=== PATIENT | male | born 1940 | race Caucasian/White ===

== ENCOUNTER 2024-02-14 15:14 | Emergency (ER) | payer MEDICARE, OTHER, SELFPAY ==
[2024-02-14 15:20] VITALS: BP 187/70
[2024-02-14 15:49] LABS: % Basophils 0.3 % (0-2); % Immature Granulocytes 0.5 % (0-0.5); % Monocytes 8.6 % (1.7-9.3); % Neutrophils 82.6 % (42.2-75.2); Absolute Immature Granulocytes 0.1 10^3/uL (0-0.05); Absolute Lymphocytes 0.9 10^3/uL (1.2-3.4); Absolute Neutrophils 9.2 10^3/uL (1.4-6.5); Hematocrit 28.1 % (39.0-52.0); Hemoglobin 9.4 g/dL (13.0-18.0); Mean Corp Hgb Conc. 33.5 g/dL (33.0-37.0); Mean Corpuscular Volume 86.7 fL (80.0-94.0); Mean Platelet Volume 9.7 fL (7.4-10.4); Nucleated Red Blood Cells % 0 % (-); Platelet Count 191 10^3/uL (130-400); Red Blood Cell Count 3.24 10^6/uL (4.70-6.10); Red Cell Dist. Width 13.7 % (11.5-14.5); White Blood Cell Count 11.1 10^3/uL (4.8-10.8)
[2024-02-14 16:13] LABS: ALT (SGPT) 25 U/L (0-50); AST (SGOT) 25 U/L (17-59); Albumin 4.4 g/dl (3.5-5.0); Alkaline Phosphatase 98 U/L (38-126); Blood Urea Nitrogen 44 mg/dl (9-20); Calcium 9.3 mg/dl (8.4-10.2); Carbon Dioxide 21 mmol/L (22-30); Chloride 105 mmol/L (98-107); Glucose 326 mg/dl (70-99); Potassium 4.9 mmol/L (3.5-5.1); Sodium 139 mmol/L (135-145); Total Bilirubin 0.5 mg/dl (0.2-1.3); Total Protein 6.8 g/dl (6.3-8.2); eGFR 25.02
[2024-02-14 16:18] LABS: Urine Albumin 1+ (Neg - Trace); Urine Bilirubin Negative (Negative); Urine Character Very Cloudy (Clear); Urine Color Yellow; Urine Glucose 3+ (Negative); Urine Ketone Negative (Negative); Urine Leukocyte 2+ (Negative); Urine Nitrite Negative (Negative); Urine Occult Blood 1+ (Negative); Urine Urobilinogen Negative (Neg - 1+)
[2024-02-14 16:42] LABS: Urine White Cell 30-40 /HPF (0-5)
[2024-02-14 16:44] LABS: Urine Squamous Cell 0-2 /LPF (Few)
--- NOTE | 2024-02-14 16:46 | ED.GENMED ---
History of Present Illness
General
Chief Complaint: Urinary Symptoms
Source: patient and spouse
Time Seen by Provider: 02/14/24 16:06
History of Present Illness
History of Present Illness:
83-year-old male with past medical history of hypertension, insulin-dependent diabetes and chronic kidney disease presenting to the emergency department from urgent care for evaluation of possible 'kidney infection' after patient started with
urinary frequency/urgency and dysuria yesterday. Symptoms actually seem to be a little bit improved today after patient 3 separate doses of penicillin which she was prescribed for a dental infection/dental work earlier in the week. Patient does
still note that he has the mild dysuria and urgency. He is otherwise denying fevers, back or flank pain, nausea or vomiting and states today he feels much better than he did yesterday. He follows with nephrology at this facility and believes his
usual renal function is around 2.5. Patient has no other concerns at this time.
Past History
Past History
ED Past Medical History: CAD, HTN, IDDM and Renal failure
ED Past Surgical History: Cardiac
Social History
Tobacco: Non-smoker
Alcohol: None
Drug: None
Personal:
Living: with family
Review of Systems
Review of Systems
All Other Systems: ROS reviewed and negative except as documented in HPI and ROS
Phy Exam
Physical Exam
Physical Exam:
GENERAL: Alert , in no apparent distress
EYE: clear conjunctiva b/l
HEAD: NCAT
ENT: mmm.
CARDIAC: Regular rate and rhythm, systolic murmur right second intercostal space.
LUNGS: Clear breath sounds bilaterally, no acute respiratory distress, no wheezes/rales/rhonchi
ABDOMEN: Soft, without focal tenderness, no r/g, no cvat
NEUROLOGICAL: Alert and oriented
SKIN: Warm and dry, skin intact.
MUSCULOSKELETAL: well perfused.
PSYCH: Normal and appropriate interaction.
Scores
Heart Failure Risk
Heart Failure Risk Score: Not Applicable
Heart Score for Chest Pain Patients
STEMI patient?: Not applicable
Withdrawal Assessment of Alcohol
Withdrawal Assessment Completed?: Not applicable
Course
Orders/Labs/Results
Orders:
Orders
02/14/24 15:34
CMP [Comprehensive Metabolic Panel] Urgent
Complete Blood Count/With Diff Urgent
02/14/24 15:35
Urinalysis Reflex To Culture Urgent
Date Specimen was Collected: 02/14/24
Time Specimen was Collected: 15:27
Urine Microscopic Reflex Cult Urgent
Urine Culture Urgent
TYSON Source: U
Specimen Description:
Date Specimen was Collected: 02/14/24
Time Specimen was Collected: 15:27
Abnormal Lab Results
02/14/24 02/14/24
15:34 15:35
WBC 11.1 H 10^3/uL
(4.8-10.8)
RBC 3.24 L 10^6/uL
(4.70-6.10)
Hgb 9.4 L g/dL
(13.0-18.0)
Hct 28.1 L %
(39.0-52.0)
Abs Immat Gran (auto) 0.1 H 10^3/uL
(0-0.05)
Absolute Neuts (auto) 9.2 H 10^3/uL
(1.4-6.5)
Absolute Lymphs (auto) 0.9 L 10^3/uL
(1.2-3.4)
Absolute Monos (auto) 1.0 H 10^3/uL
(0.1-0.6)
Neutrophils % 82.6 H %
(42.2-75.2)
Lymphocytes % 8.0 L %
(20.5-51.1)
Carbon Dioxide 21 L mmol/L
(22-30)
BUN 44 H mg/dl
(9-20)
Creatinine 2.5 H mg/dL
(0.7-1.3)
Glucose 326 H mg/dl
(70-99)
Ur Occult Blood Reflex 1+ A
(Negative)
Leukocyte Esterase Rfl 2+ A
(Negative)
Urine RBC 7-10 A /HPF
(0-2)
Urine WBC (Reflex) 30-40 A /HPF
(0-5)
Urine Glucose 3+ A
(Negative)
Urine Albumin (Reflex) 1+ A
(Neg - Trace)
02/14/24 15:34
02/14/24 15:34
Vital Signs
Initial and Last Documented VS:
Initial Vital Signs
Temp Pulse Resp BP Pulse Ox
99.0 F 77 18 187/70 98
02/14/24 15:20 02/14/24 15:20 02/14/24 15:20 02/14/24 15:20 02/14/24 15:20
Last Documented Vital Signs
Temp Pulse Resp BP Pulse Ox
99.0 F 77 18 187/70 98
02/14/24 15:20 02/14/24 15:20 02/14/24 15:20 02/14/24 15:20 02/14/24 15:20
Chaser Helper consulted with Physician
Chaser Helper consulted with physician?: Yes
Name of Physician Consulted: Bean
MDM/Problems Addressed
Differential Diagnosis Includes:
Cystitis, less concern for pyelonephritis, symptoms do not seem to be related to patient's diabetes nor chronic kidney disease however certainly possible given his chronic medical history
MDM/Problems Addressed:
83-year-old male presenting emergency department for evaluation of dysuria and urgency that started yesterday. Urgent care concern for pyelonephritis however patient without any fevers, back or flank pain, nausea or vomiting that would have me
suspicious for pyelonephritis. His labs from urgent care were reviewed which showed a leukocytosis of 11.1, creatinine of 2.7, elevated glucose and questionable urinary tract infection. Patient had repeat labs and urine drawn here which confirmed
the very mild leukocytosis. Creatinine 2.5, glucose 326. Urinalysis with 2+ leukocytes and 30-40 WBCs. Given his symptoms combined with UA findings I do feel it is likely patient has a urinary tract infection. Advise he discontinue the use of
the penicillin and will instead start patient on Bactrim. I also notified patient of his kidney function and current glucose levels. Advised patient follow-up closely with primary care provider. Aware of return precautions. Feels comfortable
being discharged home.
Chronic conditions affecting care: Kidney disease
*Pulse Oximetry
Patient hypoxic: no
*Critical Care Note
Total Time (30-74mins, 75-104mins- exclusive of procedures): Not Applicable
Data Reviewed
Review of Other/Old Records Reveals: Labs
Source: patient and spouse
ED Attending Note
-
Portions of this chart may have been created with voice recognition software.� Occasional wrong word or��sound alike� substitutions may have occurred due to the inherent limitations of voice recognition software.
Discharge Plan
Departure
Patient Disposition: Home (Routine Discharge)
Date of Disposition: 02/14/24
Time of Disposition: 16:46
Patient with high blood pressure during this ER visit?: Yes
Discharge Problem:
Acute UTI, CKD (chronic kidney disease), Hyperglycemia
Instructions: Urinary Tract Infection, Adult (DC)
Prescriptions:
New
sulfamethoxazole-trimethoprim [Bactrim DS] 800-160 mg tablet
1 tab PO BID 7 Days Qty: 14 0RF
Discharge Date and Time
Print Language: YI
[2024-02-14 17:00] VITALS: BP 165/74
== END 2024-02-14 18:08 | disposition home or self-care (01) ==
LOC: EMR 15:14
PROVIDERS: Student in an Organized Health Care Education/Training Program; EMERGENCY PHYSICIAN Student in an Organized Health Care Education/Training Program; REFERRING PHYSICIAN Internal Medicine Cardiovascular Disease
DX: N39.0 Urinary tract infection, site not specified (principal); I12.9 Hypertensive chronic kidney disease with stage 1 through stage 4 chronic kidney disease, or unspecified chronic kidney disease; E11.22 Type 2 diabetes mellitus with diabetic chronic kidney disease; N18.9 Chronic kidney disease, unspecified; E11.65 Type 2 diabetes mellitus with hyperglycemia; I25.10 Atherosclerotic heart disease of native coronary artery without angina pectoris; Z79.4 Long term (current) use of insulin; Z88.8 Allergy status to other drugs, medicaments and biological substances
CPT/HCPCS: 99283; 80053; 81003; 81015; 85025; 87077; 87086; 87186

== ENCOUNTER 2024-03-16 12:50 | Outpatient (RCR) | payer MEDICARE, OTHER, SELFPAY ==
[2024-03-08 13:24] VITALS: BP 159/60
[2024-03-08] MEDS: FERAHEME 117 MG IV (13:30)
[2024-03-08] MEDS: NSS 250 IV (13:30)
[2024-03-08 13:56] VITALS: BP 174/62
[2024-03-08 14:19] VITALS: BP 168/59
[2024-03-16 13:05] VITALS: BP 108/62
[2024-03-16] MEDS: NSS 250 IV (13:07)
[2024-03-16] MEDS: FERAHEME 117 MG IV (13:10)
[2024-03-16 14:10] VITALS: BP 169/61
== END 2024-04-06 23:59 | disposition home or self-care (01) ==
LOC: OID 12:50
PROVIDERS: ATTENDING PHYSICIAN Internal Medicine
DX: N18.31 Chronic kidney disease, stage 3a (principal); D50.9 Iron deficiency anemia, unspecified; N25.81 Secondary hyperparathyroidism of renal origin; E11.29 Type 2 diabetes mellitus with other diabetic kidney complication
CPT/HCPCS: 96361; 96365; Q0138

== ENCOUNTER 2024-03-21 15:03 | Inpatient (IN) | payer MEDICARE, OTHER, SELFPAY ==
[2024-03-21] VITALS (11 sets, daily range): BP systolic 99–184; BP diastolic 55–71; BMI 24.2
--- NOTE | 2024-03-21 10:22 | ED.GENMED ---
ED Provider Triage
<Julianne Castro PA-C - Last Filed: 03/21/24 16:11>
-
Patient seen by provider in Triage?: Seen in Triage
Attestation: A medical screening examination has been initiated by a qualified medical provider. Based on the assessment performed at this time, it has been determined that an emergent medical condition may exist and the patient has been informed
that further medical evaluation and possible additional diagnostic testing may be needed.
HPI: 83yoM here with a Valverde catheter issue. Recently treated for a UTI with 2 rounds of abx. Seen by Dr. Farah 4 days ago and had a Valverde catheter placed. Here due to discomfort of his Valverde catheter and intermittent draining issues. has
been irrigating the catheter.
GENERAL: Alert , in no apparent distress
EYE: No visual abnormalities.
NECK: Trachea midline
ENT: No visible abnormalities.
LUNGS: No acute respiratory distress
NEUROLOGICAL: Alert and oriented
SKIN: Skin intact. No visible changes.
MUSCULOSKELETAL: Moving extremities normally
PSYCH: Normal and appropriate interaction.
This is a medical evaluation conducted in person to initiate diagnostic evaluation and provide initial therapeutics. Please see further documentation by the treating clinician.
History of Present Illness
<Julianne Castro PA-C - Last Filed: 03/21/24 16:11>
General
Chief Complaint: Male Genito-Urinary Symptoms
Time Seen by Provider: 03/21/24 11:21
<Tanya Parrish PA-C - Last Filed: 03/21/24 17:42>
General
Source: patient and spouse
Exam Limitations: none
Nursing documentation reviewed up to this point in time: agreed with
History of Present Illness
History of Present Illness:
pt i a 83 y/o M with h/o ckd, iddm, HTN
here with problems iwth valverde catheter
pt has had 2 utis since february; treated first wiht bactrim and then with keflex most recently
he went to see his urologist after the keflex completed he saw dr. farah and he was in retention and had a valverde placed
he had a little gross hematuria but no tmuch
wasdraining an dhis who was an Rn was irrigating the catheter with outp sislem
but then overnight he stopped having normal drainage and was having pain and then this moring she was unable to irrigate, nothing would come out
he is having some distnetion and pain now
no fever/chills
pierce had ongoign anemia as well
Past History
<Julianne Castro PA-C - Last Filed: 03/21/24 16:11>
Past History
ED Past Medical History: CAD, HTN, IDDM and Renal failure
ED Past Surgical History: Cardiac
Social History
Tobacco: Non-smoker
Alcohol: None
Drug: None
Personal:
Living: with family
Review of Systems
<Tanya Parrish PA-C - Last Filed: 03/21/24 17:42>
Review of Systems
Allergies reviewed?: Yes
All Other Systems: Not applicable
Phy Exam
<Tanya Parrish PA-C - Last Filed: 03/21/24 17:42>
Physical Exam
Physical Exam:
GENERAL: Alert , in no apparent distress
EYE: pupils equal and reactive , pale
NECK: Supple
ENT: o/p clr, mmm.
CARDIAC: Regular rate and rhythm .
LUNGS: Clear breath sounds bilaterally, no acute respiratory distress, no wheezes/rales/rhonchi
ABDOMEN: distended slightly tense, urinary bladder full, nontender;
penis: no blood at meatus; minmal urine int he valverde bag; yellow
NEUROLOGICAL: Alert and oriented, no focal neuro deficits
SKIN: Warm and dry, skin intact.
MUSCULOSKELETAL: No edema, well perfused. neg diana's sign
PSYCH: Normal and appropriate interaction.
Course
<Julianne Castro PA-C - Last Filed: 03/21/24 16:11>
Orders/Labs/Results
Orders:
Orders
03/21/24 Breakfast
Cholesterol Lowering
At Your Request: Limited Participation
Cholesterol Lowering: Sodium, 2 Gram
1800 yang/15 CHO Diabetic
03/21/24 12:17
Complete Blood Count/With Diff Urgent
Comprehensive Metabolic Panel Urgent
Urinalysis Reflex To Culture Urgent
Date Specimen was Collected: 03/21/24
Time Specimen was Collected: 12:16
Urine Microscopic Reflex Cult Urgent
Urine Culture Urgent
TYSON Source: U
Specimen Description:
Date Specimen was Collected: 03/21/24
Time Specimen was Collected: 12:16
03/21/24 13:01
Electrocardiogram (*1) Urgent
Reason for Study: Other
Other Reason for Exam: hyperkalemia
EKG- Treatment ONCE
03/21/24 13:03
Cardiac Monitoring- Treatment ONCE
Dextrose 50%-Water [Dextrose 50% Syringe] 12.5 grams IV [id number] PRN
Dextrose 50%-Water [Dextrose 50% Syringe] 25 grams IV NOW STA
Insulin Human Regular [Novolin R] 5 units IV NOW STA
03/21/24 13:04
Bedside Glucose PRE IV Insulin- HyperK+ NOW
03/21/24 13:36
Calcium Gluconate 1,000 mg IV NOW STA
03/21/24 14:28
Admit/Transfer Patient As Directed
Co-Sign Provider:
Level of Care: Inpatient admission
Assign to:: Telemetry
Physician / Group: htay
Diagnosis: Complicated male UTI/CAUTI, acut bladder retension, hyperkalemia
Reason for Telemetry: Other
Other Reason for Telemetry: Hyperkalemia
Date to Stop Telemetry: 03/23/24
Time to Stop Telemetry: 11:00
Reason for Hospitalization: Complicated male UTI/CAUTI, acut bladder retension, hyperkalemia
Expected length of stay greater than two midnights?: Yes
ELOS- Estimated Length of Stay in days: 3
I certify the patient meets the requirements for IP care: Yes
03/21/24 14:32
Code Status As Directed
Resuscitation Status: Full Code
03/21/24 14:34
Bedside Glucose POST IV Insulin- HyperK+ Q1HX2,Q2HX2
03/21/24 15:34
Potassium Urgent
Comment: draw 2 hours after regular insulin IV administration
03/21/24 16:16
Acetaminophen [Tylenol] 650 mg PO Q4HPRN PRN
Bisacodyl [Dulcolax] 10 mg RECTAL [id number] PRN
Dextrose 50%-Water [Dextrose 50% Syringe] 12.5 grams IV [id number] PRN
Docusate W/Senna [Senokot-S] 1 tablet PO BIDPRN PRN
Glucagon [GlucaGen] 1 mg IM PRN PRN
Polyethylene Glycol Powder [Miralax] 17 grams PO DAILYPRN PRN
03/21/24 16:16
UROLOGY CONSULT Routine
Consulting Provider: Unruly Farah
Was physician already notified: Yes
Comment: Complicated male UTI/CAUTI, acut bladder retension, hyperkalemia
Activity As Directed
Activity Level: With Assistance
Bedside Glucose Monitoring As Directed
Frequency: AC&HS
Additional Instructions:: Change to q6h if pt on TPN, tube feeding or not eating
Intake/ Output As Directed
Frequency: Per unit guidelines
Pneumatic Compression Sleeves As Directed
Type: Knee high
Vital Signs As Directed
Frequency: Per unit guidelines
Weight As Directed
Frequency: Daily
DX Deep Vein Thrombosis Video Routine
03/21/24 16:30
Insulin Aspart Corrective Low [Novolog Flexpen-Low Resistance] See Protocol SC AC
03/21/24 18:00
Ampicillin/Sulbactam 1.5 G [Unasyn] 1.5 gm 0.9% Sodium Chloride [Nss] 50 ml IV Q12H
Atorvastatin [Lipitor] 80 mg PO QPM
03/21/24 20:00
Carvedilol [Coreg] 12.5 mg PO BID
03/22/24 06:00
Basic Metabolic Panel IN AM
Complete Blood Count/No Diff IN AM
Glycohemoglobin (HgbA1c) IN AM
03/22/24 08:00
Amlodipine [Norvasc] 10 mg PO DAILY
Prasugrel Hydrochloride [Effient] 5 mg PO DAILY
insulin degludec [Tresiba U-100 Insulin] 8 unit SC DAILY
03/23/24 11:00
DC Protocol for Telemetry ONCE
Abnormal Lab Results
03/21/24 03/21/24
12:17 14:19
RBC 2.87 L 10^6/uL
(4.70-6.10)
Hgb 8.5 L g/dL
(13.0-18.0)
Hct 25.7 L %
(39.0-52.0)
RDW 14.6 H %
(11.5-14.5)
Absolute Neuts (auto) 8.3 H 10^3/uL
(1.4-6.5)
Absolute Lymphs (auto) 0.7 L 10^3/uL
(1.2-3.4)
Neutrophils % 86.6 H %
(42.2-75.2)
Lymphocytes % 6.8 L %
(20.5-51.1)
Sodium 133 L mmol/L
(135-145)
Potassium 6.9 H* mmol/L
(3.5-5.1)
Carbon Dioxide 21 L mmol/L
(22-30)
BUN 35 H mg/dl
(9-20)
Creatinine 2.6 H mg/dL
(0.7-1.3)
Glucose 272 H mg/dl
(70-99)
Alkaline Phosphatase 163 H U/L
(38-126)
Ur Occult Blood Reflex 3+ A
(Negative)
Leukocyte Esterase Rfl 2+ A
(Negative)
Urine WBC (Reflex) >100 A /HPF
(0-5)
Urine Glucose 2+ A
(Negative)
Urine Albumin (Reflex) 3+ A
(Neg - Trace)
POC Glucose 296 H mg/dl
(70-99)
03/21/24 12:17
03/21/24 12:17
Vital Signs
Initial and Last Documented VS:
Initial Vital Signs
Temp Pulse Resp BP Pulse Ox
97.8 F 72 18 159/55 100
03/21/24 10:20 03/21/24 10:20 03/21/24 10:20 03/21/24 10:20 03/21/24 10:20
Last Documented Vital Signs
Temp Pulse Resp BP Pulse Ox
98.8 F 85 18 143/59 98
03/21/24 16:26 03/21/24 16:26 03/21/24 16:26 03/21/24 16:26 03/21/24 16:26
<Tanya Parrish PA-C - Last Filed: 03/21/24 17:42>
Orders/Labs/Results
Orders:
Orders
03/21/24 Breakfast
Cholesterol Lowering
At Your Request: Limited Participation
Cholesterol Lowering: Sodium, 2 Gram
1800 yang/15 CHO Diabetic
03/21/24 12:17
Complete Blood Count/With Diff Urgent
Comprehensive Metabolic Panel Urgent
Urinalysis Reflex To Culture Urgent
Date Specimen was Collected: 03/21/24
Time Specimen was Collected: 12:16
Urine Microscopic Reflex Cult Urgent
Urine Culture Urgent
TYSON Source: U
Specimen Description:
Date Specimen was Collected: 03/21/24
Time Specimen was Collected: 12:16
03/21/24 13:01
Electrocardiogram (*1) Urgent
Reason for Study: Other
Other Reason for Exam: hyperkalemia
EKG- Treatment ONCE
03/21/24 13:03
Cardiac Monitoring- Treatment ONCE
Dextrose 50%-Water [Dextrose 50% Syringe] 12.5 grams IV [id number] PRN
Dextrose 50%-Water [Dextrose 50% Syringe] 25 grams IV NOW STA
Insulin Human Regular [Novolin R] 5 units IV NOW STA
03/21/24 13:04
Bedside Glucose PRE IV Insulin- HyperK+ NOW
03/21/24 13:36
Calcium Gluconate 1,000 mg IV NOW STA
03/21/24 14:28
Admit/Transfer Patient As Directed
Co-Sign Provider:
Level of Care: Inpatient admission
Assign to:: Telemetry
Physician / Group: htay
Diagnosis: Complicated male UTI/CAUTI, acut bladder retension, hyperkalemia
Reason for Telemetry: Other
Other Reason for Telemetry: Hyperkalemia
Date to Stop Telemetry: 03/23/24
Time to Stop Telemetry: 11:00
Reason for Hospitalization: Complicated male UTI/CAUTI, acut bladder retension, hyperkalemia
Expected length of stay greater than two midnights?: Yes
ELOS- Estimated Length of Stay in days: 3
I certify the patient meets the requirements for IP care: Yes
03/21/24 14:32
Code Status As Directed
Resuscitation Status: Full Code
03/21/24 14:34
Bedside Glucose POST IV Insulin- HyperK+ Q1HX2,Q2HX2
03/21/24 15:34
Potassium Urgent
Comment: draw 2 hours after regular insulin IV administration
03/21/24 16:16
Acetaminophen [Tylenol] 650 mg PO Q4HPRN PRN
Bisacodyl [Dulcolax] 10 mg RECTAL [id number] PRN
Dextrose 50%-Water [Dextrose 50% Syringe] 12.5 grams IV [id number] PRN
Docusate W/Senna [Senokot-S] 1 tablet PO BIDPRN PRN
Glucagon [GlucaGen] 1 mg IM PRN PRN
Polyethylene Glycol Powder [Miralax] 17 grams PO DAILYPRN PRN
03/21/24 16:16
UROLOGY CONSULT Routine
Consulting Provider: Unruly Farah
Was physician already notified: Yes
Comment: Complicated male UTI/CAUTI, acut bladder retension, hyperkalemia
Activity As Directed
Activity Level: With Assistance
Bedside Glucose Monitoring As Directed
Frequency: AC&HS
Additional Instructions:: Change to q6h if pt on TPN, tube feeding or not eating
Intake/ Output As Directed
Frequency: Per unit guidelines
Pneumatic Compression Sleeves As Directed
Type: Knee high
Vital Signs As Directed
Frequency: Per unit guidelines
Weight As Directed
Frequency: Daily
DX Deep Vein Thrombosis Video Routine
03/21/24 16:30
Insulin Aspart Corrective Low [Novolog Flexpen-Low Resistance] See Protocol SC AC
03/21/24 18:00
Ampicillin/Sulbactam 1.5 G [Unasyn] 1.5 gm 0.9% Sodium Chloride [Nss] 50 ml IV Q12H
Atorvastatin [Lipitor] 80 mg PO QPM
03/21/24 20:00
Carvedilol [Coreg] 12.5 mg PO BID
03/22/24 06:00
Basic Metabolic Panel IN AM
Complete Blood Count/No Diff IN AM
Glycohemoglobin (HgbA1c) IN AM
03/22/24 08:00
Amlodipine [Norvasc] 10 mg PO DAILY
Prasugrel Hydrochloride [Effient] 5 mg PO DAILY
insulin degludec [Tresiba U-100 Insulin] 8 unit SC DAILY
03/23/24 11:00
DC Protocol for Telemetry ONCE
Abnormal Lab Results
03/21/24 03/21/24
12:17 14:19
RBC 2.87 L 10^6/uL
(4.70-6.10)
Hgb 8.5 L g/dL
(13.0-18.0)
Hct 25.7 L %
(39.0-52.0)
RDW 14.6 H %
(11.5-14.5)
Absolute Neuts (auto) 8.3 H 10^3/uL
(1.4-6.5)
Absolute Lymphs (auto) 0.7 L 10^3/uL
(1.2-3.4)
Neutrophils % 86.6 H %
(42.2-75.2)
Lymphocytes % 6.8 L %
(20.5-51.1)
Sodium 133 L mmol/L
(135-145)
Potassium 6.9 H* mmol/L
(3.5-5.1)
Carbon Dioxide 21 L mmol/L
(22-30)
BUN 35 H mg/dl
(9-20)
Creatinine 2.6 H mg/dL
(0.7-1.3)
Glucose 272 H mg/dl
(70-99)
Alkaline Phosphatase 163 H U/L
(38-126)
Ur Occult Blood Reflex 3+ A
(Negative)
Leukocyte Esterase Rfl 2+ A
(Negative)
Urine WBC (Reflex) >100 A /HPF
(0-5)
Urine Glucose 2+ A
(Negative)
Urine Albumin (Reflex) 3+ A
(Neg - Trace)
POC Glucose 296 H mg/dl
(70-99)
03/21/24 12:17
03/21/24 12:17
Vital Signs
Initial and Last Documented VS:
Initial Vital Signs
Temp Pulse Resp BP Pulse Ox
97.8 F 72 18 159/55 100
03/21/24 10:20 03/21/24 10:20 03/21/24 10:20 03/21/24 10:20 03/21/24 10:20
Last Documented Vital Signs
Temp Pulse Resp BP Pulse Ox
98.8 F 85 18 143/59 98
03/21/24 16:26 03/21/24 16:26 03/21/24 16:26 03/21/24 16:26 03/21/24 16:26
<Tanya Parrish PA-C - Last Filed: 03/21/24 17:42>
MDM/Problems Addressed
Differential Diagnosis Includes:
urinary retention, uti, yordy, hemolysis
MDM/Problems Addressed:
irais zuleta 83 y/o M ckd, IDDM, htn, cad
had valverde placed by dr. farah for urinary retention after 2 rounds abx for UTI; that was wednesday
went home, doing well utnil overnight when valverde wasn't draining well; irrigated but nothing came out; was distended with 2L urine
had to replace valverde and it was thick yellow urine but stopped draining again; dr. farah put in a coudet in the ER;
valverde subsequently draining ;but k of 6.9 on chemistry, stable cr 2.5; but dropping anemia from 9.4 to 8.5 in a few weeks; i wonder if there is some hemoloysis causing his anemia; he has had 2 iron infusions;
treating k with insulin/dextrose and calcium
admit
<Tanya Parrish PA-C - Last Filed: 03/21/24 17:42>
*Critical Care Note
Total Time (30-74mins, 75-104mins- exclusive of procedures): Not Applicable
ED Attending Note
<Julianne Castro PA-C - Last Filed: 03/21/24 16:11>
-
Portions of this chart may have been created with voice recognition software.� Occasional wrong word or��sound alike� substitutions may have occurred due to the inherent limitations of voice recognition software.
Discharge Plan
Departure
Patient Disposition: Admit
Date of Disposition: 03/21/24
Time of Disposition: 13:35
Admit to: Telemetry
Presentation/result/management discussed w/ accepting MD/DO: Hospitalist
Covid-19: Not Applicable
Discharge Problem:
Acute urinary retention, Acute hyperkalemia, Anemia
Interventions
Interventions:
*Risk Screen - Suicide Last Done: 03/21/24 10:20
*General Assessment Last Done: 03/21/24 10:20
*Neglect/Abuse Screening Last Done: 03/21/24 10:20
ED- Fall Risk Assessment Last Done: 03/21/24 12:09
*ED COVID-19 Vaccine History Last Done: 03/21/24 12:09
*Nursing Disposition Last Done: 03/21/24 16:49
ED-Male Genitourinary Assessment Last Done: 03/21/24 12:10
Discharge Date and Time
Discharge Date/Time: 03/21/24 16:49
[2024-03-21 12:43] LABS: Hematocrit 25.7 % (39.0-52.0); Hemoglobin 8.5 g/dL (13.0-18.0); Mean Corp Hgb Conc. 33.1 g/dL (33.0-37.0); Mean Corpuscular Hgb 29.6 pg (27.0-31.0); Mean Corpuscular Volume 89.5 fL (80.0-94.0); Mean Platelet Volume 8.9 fL (7.4-10.4); Platelet Count 395 10^3/uL (130-400); Red Blood Cell Count 2.87 10^6/uL (4.70-6.10); Red Cell Dist. Width 14.6 % (11.5-14.5); White Blood Cell Count 9.6 10^3/uL (4.8-10.8)
[2024-03-21 12:49] LABS: Urine Albumin 3+ (Neg - Trace); Urine Bilirubin Negative (Negative); Urine Character Clear (Clear); Urine Color Yellow; Urine Glucose 2+ (Negative); Urine Ketone Negative (Negative); Urine Leukocyte 2+ (Negative); Urine Nitrite Negative (Negative); Urine Occult Blood 3+ (Negative); Urine Specific Gravity 1.015 (<1.030); Urine Urobilinogen Negative (Neg - 1+)
[2024-03-21 12:59] LABS: ALT (SGPT) 30 U/L (0-50); AST (SGOT) 22 U/L (17-59); Albumin 3.6 g/dl (3.5-5.0); Alkaline Phosphatase 163 U/L (38-126); Blood Urea Nitrogen 35 mg/dl (9-20); Calcium 8.6 mg/dl (8.4-10.2); Carbon Dioxide 21 mmol/L (22-30); Chloride 100 mmol/L (98-107); Estimated Creatinine Clearance 20 ml/min; Glucose 272 mg/dl (70-99); Potassium 6.9 mmol/L (3.5-5.1); Sodium 133 mmol/L (135-145); Total Bilirubin 0.5 mg/dl (0.2-1.3); Total Protein 6.6 g/dl (6.3-8.2); eGFR 23.87
[2024-03-21 13:07] LABS: Urine White Cell >100 /HPF (0-5)
[2024-03-21 13:48] LABS: % Basophils 0.3 % (0-2); % Eosinophils 0.2 % (0-6); % Immature Granulocytes 0.4 % (0-0.5); % Lymphocytes 6.8 % (20.5-51.1); % Monocytes 5.7 % (1.7-9.3); % Neutrophils 86.6 % (42.2-75.2); Absolute Lymphocytes 0.7 10^3/uL (1.2-3.4); Absolute Monocytes 0.6 10^3/uL (0.1-0.6); Absolute Neutrophils 8.3 10^3/uL (1.4-6.5); Nucleated Red Blood Cells % 0 % (-)
[2024-03-21 14:20] LABS: Glucose - Point of Care 296 mg/dl (70-99)
[2024-03-21] MEDS: CALCIUM GLUCONATE 1000 MG IV (14:21)
[2024-03-21] MEDS: NOVOLIN R 5 UNITS IV (14:22)
--- NOTE | 2024-03-21 14:22 | HPS.HSE ---
Addendum entered and electronically signed by Wilbert Benoit MD 03/21/24 16:37:
Addendum per�Urologist:�
suggest neurogenic bladder due to DM. with Small prostate.
Drained 2 L of Urine with first F cath placement at Dr Farah office.
Persistent pyuria
- To conceder suprapubic tube��
- ID consult
Original Note:
Family Physician
-
Family Physician: * NONE
Chief Complaint
-
stop draining Valverde cath
History of Present Illness
83M HX CKD4, IDDM , HTN , recent UTI s/p 2 courses of ABX, complicated by urinary retention required chr F indwelling cath came to ER due to stop draining from Foleys cath. At ER , Bladdder distended with 2L urine
had to replace valverde and it was thick yellow urine but stopped draining again; Dr. farah put in a coudet,
Labe noted for K 6.9
Stable Cr 2.5
Hgb dropped to 9.4(02/14/24) from 8.5 today
Recent HX 2 Fe infusion
Medical History
Past Medical History
Past Medical History: Reports HTN, Hypercholesterolemia, IDDM and Renal Failure (CKD 4 . Cr 2.6 at baseline , eGFR 20-25 )
Past Surgical History: Reports Cardiac
Social History
Tobacco: Non-smoker
Alcohol: None
Personal:
Living: With Family
Family History
Family History: Not pertinent
Allergies / Home Medications
Allergies reflects when Allergies were last updated in [facility].
Home Medications with original date entered in [facility]
Allergy/Medication List:
Allergies
Allergy/AdvReac Type Severity Reaction Status Date / Time
clopidogrel [From Plavix] Allergy Unknown Verified 03/21/24 10:20
Home Medications
amlodipine 5 mg tablet 10 mg PO DAILY 03/08/24
tamsulosin 0.4 mg capsule 0.4 mg PO QPM 03/08/24
atorvastatin 80 mg tablet 80 mg PO QPM 03/16/24
cephalexin 500 mg capsule 500 mg PO BID 03/16/24
chromium picolinate 500 mcg capsule 500 mcg PO DAILY 03/16/24
insulin degludec 100 unit/mL subcutaneous solution (Tresiba U-100 Insulin) 8 unit SC DAILY 03/16/24
prasugrel 5 mg tablet 5 mg PO DAILY 03/16/24
red yeast rice 600 mg capsule 1,200 mg PO DAILY 03/16/24
vitamins A,C,D-xgor-szopqq 2,148 mcg-113 mg-45 mg-17.4 mg tablet (PreserVision AREDS) 1 tab PO BID 03/16/24
carvedilol 12.5 mg tablet (Coreg) 12.5 mg PO BID 03/21/24
losartan 100 mg tablet 100 mg PO DAILY 03/21/24
milk thistle 175 mg tablet 175 mg PO DAILY 03/21/24
therapeutic multivitamin 1 tab PO DAILY 03/21/24
Review of Systems
-
Constitutional: Reports No Symptoms
EENT: Reports No Symptoms
Respiratory: Reports No Symptoms
Cardiac: Reports No Symptoms
Abdomen/GI: Reports No Symptoms
: Reports See HPI
Musculoskeletal: Reports No Symptoms
Skin: Reports No Symptoms
Neurological: Reports No Symptoms
Endocrine: Reports No Symptoms
Hematologic/Lymphatic: Reports No Symptoms
Psych: Reports No Symptoms
Physical Exam
Vital Signs
Vital Signs
Temp Pulse Resp BP Pulse Ox
97.8 F 72 18 156/60 97
03/21/24 10:20 03/21/24 10:20 03/21/24 10:20 03/21/24 14:00 03/21/24 14:00
Physical Exam
General: Well Developed, Well Nourished and No Apparent Distress
HEENT: NormoCephalic, Moist mucous membranes and Atraumatic
Respiratory: Clear
Cardiac: S1/S2 and Regular Rhythm; No Murmur or Rub
GI: Soft, Non Tender, Non Distended and Normal Bowel Sounds; No Organomegaly
Rectal: Deferred by Provider
Musculoskeletal: No Clubbing, No Cyanosis and No Edema
Skin: No Rash
Neuro: Nonfocal/grossly intact
Laboratory Results
-
03/21/24 12:17
Laboratory Results
Total Bilirubin 0.5 mg/dl (0.2-1.3) 03/21/24 12:17
AST 22 U/L (17-59) 03/21/24 12:17
ALT 30 U/L (0-50) 03/21/24 12:17
Alkaline Phosphatase 163 U/L (38-126) H 03/21/24 12:17
Data Reviewed
-
Lab Data: Labs Reviewed by me
Impression/Plan
-
Vital Signs
Temp Pulse Resp BP Pulse Ox
97.8 F 72 18 156/60 97
03/21/24 10:20 03/21/24 10:20 03/21/24 10:20 03/21/24 14:00 03/21/24 14:00
Data
02/14/24 POS Enterococcus faecalis sensitive to vanco, levofloxacin and ampicillin
ASSESSMENT & PLAN
Severe acute hyperkalemia DDX: Hemolysis with K reabsorption vs. losartan vs. CKD4 progression
- Agree with IV Ca G, Insulin 5 units, D50
- Repeat K at 4 pm
- Hold Losartan
- trend K in AM
Recurrent acute urinary retention with associated CAUTI
Malfunctioning F cath drainage
- hence Dr. Farah/ Uro placed coude
- f/u UO
- Treat UTI
- Uro consulted
suspect CAUTI
Significant persistent pyuria
02/14/24 POS Enterococcus faecalis(VSE) sensitive to vanco, levofloxacin and ampicillin
- f/u UCx
- empiric IV Unasyn in place of Cephelexin
- ID consult
Essential HTN
- hold Losartan due to hyperkalemia
- c/w Carvedilol , Amlodipine
CKF4 - creat stable
Baseline Cr mid 2s
IDDM
- cont. 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
- add ISS low
HLD
- c/w atorvastatin
DVT Px: SCD
Code: Full
IP TLM
--- NOTE | 2024-03-21 15:09 | W.PN.URO.CBU ---
Today's Communication / Plan
-
valverde positional may have t push into hub to drain may not irrigatr
Assessment / Plan
-
2600 cc pyuria drained has elevctrolyte disoreder admiiting for monitoring renal panel Valverde is positional and may eventually need to be replaced by sp tube but on anticoagulants had cardiac stents 3 years ago and thereofre on
anticoagulants
Diagnosis
-
Date of Service: March 21, 2024
-
Patient Diagnosis:urinary retention pyuria uti
Post Op Day:
Subjective
-
lower abd pain due to retntion possibly atonic diabetic bladder as opposed to bph
Objective
-
Vital Signs
Temp Pulse Resp BP Pulse Ox
97.8 F 79 15 156/60 97
03/21/24 10:20 03/21/24 14:30 03/21/24 14:30 03/21/24 14:00 03/21/24 14:30
Intake and Output
03/20/24 03/21/24 03/22/24
06:59 06:59 06:59
Output Total 3450 / 3450
Balance -3450 / -3450
Output:
Urine, Valverde 2600 / 2600
Urine, Voided 850 / 850
Laboratory Results
03/21/24 12:17
Review of Systems
-
: Difficulty Voiding
Physical Exam
-
General - well developed, well nourished, no acute distress
Chest - clear bilaterally
Abdomen - soft, non-tender, positive bowel sounds, no CVAT, no incisional pain or distention
Genitalia - normal
Rectal - normal
Skin - warm & dry with no rash
Neuro - AOx3, no motor deficits
Extremities - no clubbing, no cyanosis, no edema
Incision - clean, dry
Dressing - clean, dry, intact
Care Review
Data Reviewed
Discussed with: Nursing and Family
[2024-03-21 15:32] LABS: Glucose - Point of Care 292 mg/dl (70-99)
--- NOTE | 2024-03-21 16:20 | PTCARENOTE ---
Patient received to room 419-01 from ED. Patient transferred into bed by nursing staff. Patient oriented to room. Call shaffer in reach and patient verbalizes understanding to ring for needs. Patient's bedside.
[2024-03-21 17:08] LABS: Glucose - Point of Care 392 mg/dl (70-99)
[2024-03-21] MEDS: NOVOLOG FLEXPEN-LOW RESISTANCE 5 UNITS SC (17:25)
[2024-03-21] MEDS: LIPITOR 80 MG PO (17:26)
[2024-03-21 18:24] LABS: Potassium 5.2 mmol/L (3.5-5.1)
[2024-03-21] MEDS: UNASYN IV (18:37)
[2024-03-21] MEDS: FLUSH (NSS) 1 FLUSH IV (18:39)
[2024-03-21 20:11] LABS: Glucose - Point of Care 391 mg/dl (70-99)
[2024-03-21] MEDS: COREG 12.5 MG PO (20:32)
[2024-03-21 21:26] LABS: Glucose - Point of Care 394 mg/dl (70-99)
[2024-03-22] VITALS (7 sets, daily range): BP systolic 150–178; BP diastolic 53–69; BMI 22.7
[2024-03-22] MEDS: TYLENOL 650 MG PO (01:05)
--- NOTE | 2024-03-22 04:10 | DOWNTIME ---
There was a [employer] Client Registered Sales Assistant Downtime on 03/22/2024 from 0100 to 03/22/2024 at 0355. Downtime documentation of patient's care, including medication administrations, has been reconciled in the electronic record per guidelines. Refer to the
patient's paper chart under the miscellaneous tab to see printed paper medication records and downtime forms.
[2024-03-22] MEDS: UNASYN IV (05:34)
[2024-03-22 08:09] LABS: Glucose - Point of Care 357 mg/dl (70-99)
[2024-03-22] MEDS: NOVOLOG FLEXPEN-LOW RESISTANCE 5 UNITS SC (08:25)
[2024-03-22] MEDS: LANTUS 0.08 UNITS SC (08:25)
[2024-03-22] MEDS: COREG 12.5 MG PO ×2 (08:26→19:42)
[2024-03-22] MEDS: NORVASC 10 MG PO (08:26)
[2024-03-22 08:29] LABS: Hematocrit 21.1 % (39.0-52.0); Mean Corp Hgb Conc. 33.2 g/dL (33.0-37.0); Mean Corpuscular Hgb 29.3 pg (27.0-31.0); Mean Corpuscular Volume 88.3 fL (80.0-94.0); Mean Platelet Volume 9.1 fL (7.4-10.4); Platelet Count 342 10^3/uL (130-400); Red Blood Cell Count 2.39 10^6/uL (4.70-6.10); Red Cell Dist. Width 14.7 % (11.5-14.5); White Blood Cell Count 10.2 10^3/uL (4.8-10.8)
--- NOTE | 2024-03-22 09:22 | W.PN.URO.CBU ---
Today's Communication / Plan
-
continue present plan no plans for sp tube at this time ie no surgery
Assessment / Plan
-
2600 cc pyuria drained has elevctrolyte disoreder admiiting for monitoring renal panel Valverde is positional and may eventually need to be replaced by sp tube but on anticoagulants had cardiac stents 3 years ago and thereofre on
anticoagulants
Diagnosis
-
Date of Service: March 22, 2024
-
Patient Diagnosis:
Post Op Day:
Patient Diagnosis:urinary retention pyuria uti
Post Op Day:
Subjective
-
feels well tolerating valverde with good dfrainage
Objective
-
Vital Signs
Temp Pulse Resp BP Pulse Ox
98.3 F 74 18 153/69 97
03/22/24 07:29 03/22/24 08:26 03/22/24 07:29 03/22/24 08:26 03/22/24 07:29
Intake and Output
03/21/24 03/22/24 03/23/24
06:59 06:59 06:59
Intake Total 600 / 600
Output Total 5850 / 5850
Balance -5250 / -5250
Intake:
Oral fluids 480 / 480
IV piggybacks 120 / 120
Output:
Urine, Valverde 5000 / 5000
Urine, Voided 850 / 850
Laboratory Results
03/22/24 06:51
Review of Systems
-
: Difficulty Voiding
Physical Exam
-
General - well developed, well nourished, no acute distress
Chest - clear bilaterally
Abdomen - soft, non-tender, positive bowel sounds, no CVAT, no incisional pain or distention
Genitalia - normal
Rectal - normal
Skin - warm & dry with no rash
Neuro - AOx3, no motor deficits
Extremities - no clubbing, no cyanosis, no edema
Incision - clean, dry
Dressing - clean, dry, intact
Care Review
Data Reviewed
Discussed with: Nursing
--- NOTE | 2024-03-22 09:40 | W.PN.HOSP.TC ---
Today's Communication/Plan
-
possible dc in am
Assessment / Plan
Assessment / Plan
Physical Exam
General: Well Developed, Well Nourished and No Apparent Distress
HEENT: Normocephalic, Moist mucous membranes and Atraumatic
Respiratory: Clear
Cardiac: S1/S2 and Regular Rhythm; No Murmur or Rub
GI: Soft, Non Tender, Non Distended and Normal Bowel Sounds; No Organomegaly
Rectal: No bleeding
: Rosenthal, no hematuria
Musculoskeletal: No Clubbing, No Cyanosis and No Edema
Skin: No Rash
Neuro: Nonfocal/grossly intact
Psych: calm
A/P'
# Severe acute hyperkalemia DDX: Hemolysis with K reabsorption vs. losartan vs. CKD4 progression
- s/p IV Ca G, Insulin 5 units, D50
- Repeat K is 4.9
Keep of Losartan
# Hyponatremia, mild
No confusion
# Acute blood loss anemia on underlying anemia of chronic disease ( CKD)
monitor Hemoglobin.
# Recurrent acute urinary retention with associated CAUTI
Malfunctioning F cath drainage
- Dr. Farah/ Uro placed coubritt, per urology no plan for SP catheter.
- f/u UO
- Treat UTI
- Uro consulted, appreciate help.
# suspect CAUTI
Significant persistent pyuria
02/14/24 POS Enterococcus faecalis(VSE) sensitive to vanco, levofloxacin and ampicillin
- f/u UCx
- empiric IV Unasyn in place of Cephalexin , now on Ampicillin
- ID consulted, appreciate input
#Essential HTN
- held Losartan due to hyperkalemia
- c/w Carvedilol , Amlodipine
#CKF4 - creat stable
Avoid nephrotoxic agents
Primary preschool teacher's assistant is Dr Shea
#IDDM
- cont. SWEDGER Lantus daily
- add ISS low
HLD
- c/w atorvastatin
Total time spent to see the patient on the floor, examine the patient, review data and lab results, discuss treatment plan with patient, nursing staff around 55 minutes
Anticipated Discharge: Within 24 hours
Subjective/Interval History
-
Date of Service: March 22, 2024
No chest pain
No flank pain, no dysuria
No hematuria
Objective Data
-
Labs:
Laboratory Results
03/22/24
06:51
WBC 10.2
Hgb 7.0 L
Hct 21.1 L
Plt Count 342
Sodium Pending
Potassium Pending
Chloride Pending
Carbon Dioxide Pending
BUN Pending
Creatinine Pending
Glucose Pending
Calcium Pending
Vital Signs:
Vital Signs
Temp Pulse Resp BP Pulse Ox
98.3 F 74 18 153/69 97
03/22/24 07:29 03/22/24 08:26 03/22/24 07:29 03/22/24 08:26 03/22/24 07:29
I&O
03/21/24 03/22/24 03/23/24
06:59 06:59 06:59
Intake Total 600 / 600
Output Total 5850 / 5850
Balance -5250 / -5250
[2024-03-22 09:43] LABS: Glycohemoglobin (HgbA1c) 8.5 % (4.0-5.6)
[2024-03-22 10:02] LABS: Blood Urea Nitrogen 35 mg/dl (9-20); Calcium 8.6 mg/dl (8.4-10.2); Carbon Dioxide 19 mmol/L (22-30); Chloride 101 mmol/L (98-107); Estimated Creatinine Clearance 27 ml/min; Glucose 366 mg/dl (70-99); Potassium 4.9 mmol/L (3.5-5.1); Sodium 134 mmol/L (135-145); eGFR 34.79
[2024-03-22 11:25] LABS: Glucose - Point of Care 313 mg/dl (70-99)
[2024-03-22] MEDS: NOVOLOG FLEXPEN-LOW RESISTANCE 4 UNITS SC (11:58)
--- NOTE | 2024-03-22 12:13 | CM ---
CM reviewed chart, met with patient and bedside, initial assessment completed by , Monica. Patient and reside in a two story home, no steps to enter. Patient does not use DME, denies VN or SNF history. Patient does not have a PCP but
has several specialist, will provide [facility] information. Pharmacy confirmed [facility], confirms prescription coverage through [employer]. Patient and deny insecurities at home. 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
assist with patient needs, would be interested in a visiting nurse if needed. CM discussed VN agencies require patient to have current PCP, understands. CM will continue to follow for all discharge planning needs.
Plan; home with , will provide PCP/Residency Clinic information.
--- NOTE | 2024-03-22 13:05 | CON.ID ---
Consultation
-
Date/Time Consultation Requested: 03/21/2024 1643
Date/Time Consultation Performed: 03/22/2024 1150
Requesting Provider: Dr. Benoit
Performing Provider: Dr. Cristobal
Reason for Consultation: Complicated UTI
Chief Complaint / Past History
History of Present Illness
Abdullahi Be is an 83-year-old man being evaluated at request of Dr. Manley in regards to complicated urinary tract infection. History is obtained from chart review, along with patient review, and history obtained from the patient's who was
at the bedside.
The patient reports that he has had 2 recent urinary tract infections, the first in mid February, at which time he was seen here in the emergency room after being evaluated initially at an urgent care. At that time he admitted to urinary
frequency, urinary urgency and dysuria x 1 day. A review of those notes indicate the patient upon presentation to the ER noted feeling slightly improved after several doses of penicillin prescribed for a dental infection/dental work earlier in the
week. He denied any fevers or chills, back or flank pain, or nausea or vomiting. Ultimately, he was discharged on a course of Bactrim DS.
He notes that he then developed a second infection treated with Keflex and then finally was seen by Urology and found to be in urinary retention (for approximate 2 L) and a Rosenthal catheter was placed. He presented to the emergency room yesterday
following development of decreasing drainage, and increasing overall distention. In the ER, that Rosenthal was removed and a coud� catheter was placed by urology, with the finding of thick yellow urine. Cultures are currently pending, and infectious
disease is asked to comment upon further antimicrobial therapy.
At this time he denies any fevers or chills. He overall is feeling quite improved. He denies any flank or back pain. Prior urinary discomfort has improved also.
Past History
Additional Past Medical History:
CAD; Hx [place]
HTN
DM
CKD
Atonic bladder
Additional Past Surgical History:
Cardiac stenting
Allergy History:
clopidogrel [From Plavix] Allergy (Verified 03/21/24 10:20)
Unknown
Medications Reviewed: Yes
Current Antibiotics:
Unasyn 1.5 g IV every 12 hours
Social History
Tobacco: Non-Smoker
Alcohol: None
Drug: None
Personal:
Living: With Family
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
Family History
Family History: Not Pertinent
Review of Systems
Vital Signs
Temp Pulse Resp BP Pulse Ox
98.1 F 65 18 164/58 99
03/22/24 11:25 03/22/24 11:25 03/22/24 11:25 03/22/24 11:25 03/22/24 11:25
Physical Exam
Physical Exam
Constitutional: No Acute Distress, Comfortable and Non-toxic
Eyes: No Conjunctival Hemorrhage and Sclera Anicteric
Oral: No Thrush and No Ulcers
Cardiovascular: Regular Rate, S1/S2 and Murmur (2/6 LSB); Negative S3/S4
Pulmonary: Clear; Negative Wheezes, Rales or Rhonchi
Gastrointestinal: Soft, Non Tender, Non Distended and Normal Bowel Sounds
Genito-Urinary: Rosenthal; Negative Turbid Urine (Sediment in tubing noted) or Hematuria
Extremities: Negative Edema, Cyanosis or Erythema
Skin: Negative Rash or Jaundice
Neurological: Awake and Alert
Psychological: Calm
Lab / Diagnostic Study Results
03/22/24 06:51
03/22/24 06:51
Abs Immat Gran (auto) 0.0 10^3/uL (0-0.05) 03/21/24 12:17
Absolute Neuts (auto) 8.3 10^3/uL (1.4-6.5) H 03/21/24 12:17
Absolute Lymphs (auto) 0.7 10^3/uL (1.2-3.4) L 03/21/24 12:17
Absolute Monos (auto) 0.6 10^3/uL (0.1-0.6) 03/21/24 12:17
Absolute Basos (auto) 0.0 10^3/uL (0-0.2) 03/21/24 12:17
Immature Gran % 0.4 % (0-0.5) 03/21/24 12:17
Neutrophils % 86.6 % (42.2-75.2) H 03/21/24 12:17
Lymphocytes % 6.8 % (20.5-51.1) L 03/21/24 12:17
Monocytes % 5.7 % (1.7-9.3) 03/21/24 12:17
Eosinophils % 0.2 % (0-6) 03/21/24 12:17
Basophils % 0.3 % (0-2) 03/21/24 12:17
Microbiology Results
Micro:
03/21/24 12:17 Urine Culture - Preliminary
Urine Enterococcus species
Urine Culture Final 02/16/24-1252
CC: Greater than 100,000 CFU/ML Enterococcus faecalis
Organism 1 Enterococcus faecalis
1. Enterococcus faecalis
M.I.C. RX
--------- ---
Ampicillin <=2 S
Gentamicin Synergy Screen <=500 S
Levofloxacin <=1 S
Nitrofurantoin-Urine Only <=32 S
Tetracycline >8 R
Vancomycin 2 S
Assessment / Plan
Complicated urinary tract infection
CAUTI (POA)
Obstructive uropathy
Hx atonic bladder
CAD; Hx IA
HTN
DM (uncontrolled; HbA1c = 8.5)
CKD
Recommendations:
Prior urine cultures have been reviewed, and reveal the presence of a relatively sensitive Enterococcal species.
Continue with penicillin therapy, although antibiotics can be de-escalated to ampicillin.
Repeat cultures pending; will await further data.
Follow white count and temperature curve.
Additional recommendations as further data is returned.
[2024-03-22] MEDS: AMPICILLIN 108 MG IV (13:50)
[2024-03-22] MEDS: FLUSH (NSS) 1 FLUSH IV (13:51)
[2024-03-22 16:17] LABS: Glucose - Point of Care 454 mg/dl (70-99)
[2024-03-22 17:09] LABS: Glucose 443 mg/dl (70-99)
[2024-03-22] MEDS: NOVOLOG FLEXPEN-LOW RESISTANCE 6 UNITS SC (17:12)
[2024-03-22] MEDS: LIPITOR 80 MG PO (17:13)
[2024-03-22 21:45] LABS: Glucose - Point of Care 425 mg/dl (70-99)
[2024-03-22 22:18] LABS: Glucose 403 mg/dl (70-99)
[2024-03-22] MEDS: NOVOLOG FLEXPEN 8 UNITS SC (23:08)
[2024-03-23] MEDS: AMPICILLIN 108 MG IV ×2 (01:04→14:16)
[2024-03-23 01:16] LABS: Glucose - Point of Care 415 mg/dl (70-99)
[2024-03-23 01:54] LABS: Glucose 376 mg/dl (70-99)
[2024-03-23 03:25] VITALS: BP 161/58
[2024-03-23 06:00] VITALS: BMI 22.5
[2024-03-23 07:45] VITALS: BP 104/64
[2024-03-23 08:11] LABS: Glucose - Point of Care 379 mg/dl (70-99)
--- NOTE | 2024-03-23 09:14 | W.PN.URO.CBU ---
Today's Communication / Plan
-
PLAN PER HOSP[ITALIST BUT OK FOR D/C FROM POINT OF VIEW WITH MILLER
Assessment / Plan
-
2600 cc pyuria drained has elevctrolyte disoreder admiiting for monitoring renal panel Miller is positional and may eventually need to be replaced by sp tube but on anticoagulants had cardiac stents 3 years ago and thereofre on
anticoagulants Stable and d/c when ok by hospitalist and ID
Diagnosis
-
Date of Service: March 23, 2024
-
Patient Diagnosis:
Post Op Day:
Patient Diagnosis:
Post Op Day:
Patient Diagnosis:urinary retention pyuria uti
Post Op Day:
Subjective
-
feeling better
Objective
-
Vital Signs
Temp Pulse Resp BP Pulse Ox
97.5 F 70 16 104/64 96
03/23/24 07:45 03/23/24 07:45 03/23/24 07:45 03/23/24 07:45 03/23/24 07:45
Intake and Output
03/22/24 03/23/24 03/24/24
06:59 06:59 06:59
Intake Total 600 / 600 1536 / 1536
Output Total 5850 / 5850 3850 / 3850
Balance -5250 / -5250 -2314 / -2314
Intake:
Oral fluids 480 / 480 1320 / 1320
IV piggybacks 120 / 120 216 / 216
Output:
Urine, Miller 5000 / 5000 2500 / 2500
Urine, Voided 850 / 850 1350 / 1350
Laboratory Results
03/22/24 06:51
03/23/24 01:25
Review of Systems
-
: Difficulty Voiding
Physical Exam
-
General - well developed, well nourished, no acute distress
Chest - clear bilaterally
Abdomen - soft, non-tender, positive bowel sounds, no CVAT, no incisional pain or distention
Genitalia - normal
Rectal - normal
Skin - warm & dry with no rash
Neuro - AOx3, no motor deficits
Extremities - no clubbing, no cyanosis, no edema
Incision - clean, dry
Dressing - clean, dry, intact
Care Review
Data Reviewed
Discussed with: Nursing
[2024-03-23] MEDS: NOVOLOG FLEXPEN-LOW RESISTANCE 5 UNITS SC (09:35)
[2024-03-23] MEDS: COREG 12.5 MG PO (09:43)
[2024-03-23] MEDS: LANTUS 0.08 UNITS SC (09:44)
[2024-03-23] MEDS: NORVASC 10 MG PO (09:44)
--- NOTE | 2024-03-23 09:53 | W.PN.HOSP.TC ---
Addendum entered and electronically signed by Elva Dumont MD 03/23/24 13:04:
Addendum
I was called to see the patient. Patient wants to go home after urology saw him.
His is in the room also
Blood glucose is high. Patient refused the extra dose of Lantus. Ordered extra doses of NovoLog. Will c/w high doses sliding scale , added extra doses of short acting to bring down BS.
Patient reported that he would like to manage his insulin doses because he felt comfortable doing it, he did better job at home. He also reported that his coverage and management were not good since admission. Blood glucose was 326 on arrival to
hospital but today is going up to 400-500. HBGA1C 8.5 but better than before per his .
Goal to lower BS before discharge
D/W ID, appreciate input.
End
Will follow closely.
Original Note:
Today's Communication/Plan
-
Pt is Requesting discharge or a private room ( roommate has cough)
Repeat blood work and follow up
Increase Lantus dose
Assessment / Plan
Assessment / Plan
Physical Exam
General: Well Developed, Well Nourished and No Apparent Distress
HEENT: Normocephalic, Moist mucous membranes and Atraumatic
Respiratory: Clear
Cardiac: S1/S2 and Regular Rhythm; No Murmur or Rub
GI: Soft, Non Tender, Non Distended and Normal Bowel Sounds; No Organomegaly
Rectal: No bleeding
: Rosenthal, no hematuria
Musculoskeletal: No Clubbing, No Cyanosis and No Edema
Skin: No Rash
Neuro: Nonfocal/grossly intact
Psych: calm
A/P'
# Severe acute hyperkalemia DDX: Hemolysis with K reabsorption vs. losartan vs. CKD4 progression
- s/p IV Ca G, Insulin 5 units, D50
- Repeat K is 4.9
Keep of Losartan
recheck BMP today
# Hyponatremia, mild
No confusion
# Acute blood loss anemia on underlying anemia of chronic disease ( CKD)
monitor Hemoglobin. Repeat CBC today
# Recurrent acute urinary retention with associated CAUTI
Malfunctioning F cath drainage
- Dr. Farah/ Uro placed coude, per urology no plan for SP catheter.
- f/u UO
- Treat UTI
- Uro consulted, appreciate help.
# suspect CAUTI
Significant persistent pyuria
02/14/24 POS Enterococcus faecalis(VSE) sensitive to vanco, levofloxacin and ampicillin
- f/u UCx
- empiric IV Unasyn in place of Cephalexin , now on Ampicillin
- ID consulted, appreciate input
#Essential HTN
- held Losartan due to hyperkalemia
- c/w Carvedilol , Amlodipine
#CKF4 - creat stable
Avoid nephrotoxic agents
Primary credit collection associate is Dr Shea
#IDDM
- cont. OUTSIDE INSTALLATION MACHINIST Lantus daily
- add ISS low
HLD
- c/w atorvastatin
Total time spent to see the patient on the floor, examine the patient, review data and lab results, discuss treatment plan with patient, nursing staff around 55 minutes
Anticipated Discharge: Within 24 hours
Subjective/Interval History
-
Date of Service: March 23, 2024
No pain or discomfort
He is uncomfortable with room situation ( roomate has cough)
Objective Data
-
Labs:
Laboratory Results
03/22/24 03/23/24
21:49 01:25
Glucose 403 H 376 H
Vital Signs:
Vital Signs
Temp Pulse Resp BP Pulse Ox
97.5 F 70 16 104/64 96
03/23/24 07:45 03/23/24 07:45 03/23/24 07:45 03/23/24 07:45 03/23/24 07:45
I&O
03/22/24 03/23/24 03/24/24
06:59 06:59 06:59
Intake Total 600 / 600 1536 / 1536
Output Total 5850 / 5850 3850 / 3850
Balance -5250 / -5250 -2314 / -2314
[2024-03-23 10:10] LABS: Hematocrit 22.9 % (39.0-52.0); Hemoglobin 7.6 g/dL (13.0-18.0); Mean Corp Hgb Conc. 33.2 g/dL (33.0-37.0); Mean Corpuscular Hgb 29.7 pg (27.0-31.0); Mean Corpuscular Volume 89.5 fL (80.0-94.0); Mean Platelet Volume 8.8 fL (7.4-10.4); Platelet Count 323 10^3/uL (130-400); Red Blood Cell Count 2.56 10^6/uL (4.70-6.10); Red Cell Dist. Width 14.8 % (11.5-14.5)
[2024-03-23 10:36] LABS: Blood Urea Nitrogen 34 mg/dl (9-20); Calcium 8.5 mg/dl (8.4-10.2); Carbon Dioxide 23 mmol/L (22-30); Chloride 100 mmol/L (98-107); Estimated Creatinine Clearance 32 ml/min; Glucose 458 mg/dl (70-99); Potassium 4.8 mmol/L (3.5-5.1); Sodium 133 mmol/L (135-145); eGFR 42.75
[2024-03-23 11:32] VITALS: BP 168/58
[2024-03-23] MEDS: NOVOLOG FLEXPEN 15 UNITS SC (11:37)
[2024-03-23 11:46] LABS: Glucose - Point of Care 518 mg/dl (70-99)
[2024-03-23] MEDS: NOVOLOG FLEXPEN 8 UNITS SC ×2 (12:11→16:39)
[2024-03-23] MEDS: NOVOLOG FLEXPEN-HIGH RESISTANCE SC (12:27)
--- NOTE | 2024-03-23 12:29 | CM ---
CM reviewed chart, met with patient and bedside. reports she does not feel patient needs VN referral at this time. CM provided information on Residency Clinic. CM reviewed IMM, signed, placed in chart. CM will continue to follow for all
discharge planning needs.
Plan; home with , no needs.
--- NOTE | 2024-03-23 13:13 | W.PN.ID1 ---
Date of Service
Date of Service: March 23, 2024
Today's Communication
Continue antibiotics. See below�
Assessment / Plan
Complicated urinary tract infection
CAUTI (POA)
Obstructive uropathy
Hx atonic bladder
CAD; Hx NC
HTN
DM (uncontrolled; HbA1c = 8.5)
CKD
Recommendations:
Narrow antibiotics to oral amoxicillin 500 mg 3 times daily for an additional 12 days.
Follow-up in the office as needed.
����������������������������������������������������������
Chief Complaint
-: UTI
Subjective / Review of Systems
Review of Systems: No Fever and No Chills
Vital Signs / Physical Exam
Vital Signs
Vital Signs
Temp Pulse Resp BP Pulse Ox
98.2 F 65 18 168/58 95
03/23/24 11:32 03/23/24 11:32 03/23/24 11:32 03/23/24 11:32 03/23/24 11:32
Physical Exam
Constitutional: No Acute Distress, Comfortable and Non-toxic
Eyes: Sclera Anicteric
Cardiovascular: S1/S2; Negative S3/S4
Pulmonary: Non Labored
Neurological: Awake and Alert
Psychological: Calm
Objective Data
Lab Data
Lab Results
03/23/24 10:00
03/23/24 10:00
Estimated Creat Clear 32 ml/min 03/23/24 10:00
Total Bilirubin 0.5 mg/dl (0.2-1.3) 03/21/24 12:17
AST 22 U/L (17-59) 03/21/24 12:17
ALT 30 U/L (0-50) 03/21/24 12:17
Alkaline Phosphatase 163 U/L (38-126) H 03/21/24 12:17
Most recent labs reviewed.
Micro Results:
03/21/24 12:17 Urine Culture - Final
Urine Enterococcus faecalis
Urine Culture Final 02/16/24-1252
CC: Greater than 100,000 CFU/ML Enterococcus faecalis
Organism 1 Enterococcus faecalis
1. Enterococcus faecalis
M.I.C. RX
--------- ---
Ampicillin <=2 S
Gentamicin Synergy Screen <=500 S
Levofloxacin <=1 S
Nitrofurantoin-Urine Only <=32 S
Tetracycline >8 R
Vancomycin 2 S
Care Review
Plan reviewed with: Physician (Hospitalist)
[2024-03-23 13:46] LABS: Glucose - Point of Care 451 mg/dl (70-99)
[2024-03-23] MEDS: NOVOLOG FLEXPEN 20 UNITS SC (14:11)
--- NOTE | 2024-03-23 14:16 | W.PN.UPDATE ---
Addendum entered and electronically signed by Elva Dumont MD 03/24/24 16:04:
Addendum
Repeat blood glucose after insulin Tx is 338. d/w pt, he would like to manage DM according to his OP doctor. No confusion
Advised to monitor blood glucose at home closely
Total time spent to see the patient on the floor, examine the patient, review data and lab results, discuss treatment plan with patient, nursing staff around 65 minutes
Original Note:
Update Note
Progress Note Update
Pt is anxious to leave
will lower blood glucose less than 400 before he leaves
d/w nursing staff
[2024-03-23] MEDS: FLUSH (NSS) 1 FLUSH IV (14:18)
[2024-03-23 14:25] LABS: Glucose 445 mg/dl (70-99)
[2024-03-23 16:25] LABS: Glucose - Point of Care 338 mg/dl (70-99)
[2024-03-23] MEDS: NOVOLOG FLEXPEN-HIGH RESISTANCE 10 UNITS SC (16:34)
[2024-03-23] MEDS: FLUAD (65 yr+) 2024-2025 FORMULA 0.5 ML IM (16:51)
--- NOTE | 2024-03-23 18:06 | PTCARENOTE ---
IV removed from pt, pt valverde bag changed to a leg bag. Pt escorted to waiting car via wheelchair, escorting pt to home. dc'd without incident
--- NOTE | 2024-03-24 15:44 | W.DCSUMMARY ---
Discharge Summary
Discharge Data
Date of Admission: 03/21/24
Date of Discharge: 03/23/24
-
Pending Results: No
Hospital Course
83 years old male presented with malfunction of urinary catheter. Patient was seen by urologist And placed Rosenthal catheter with good drainage of urine. Patient was noted to have history of urinary tract infection with pyuria. Patient was
admitted with complicated urinary tract infection. He had normal kidney function but was noted to have hyperkalemia. Patient was given intravenous fluid and treatment for hyperkalemia. He was taking Bactrim at home. Patient was seen and followed
by urologist. His urine catheter continues to function well. Infectious disease consultant intern evaluated the patient. Patient was started on intravenous ampicillin and later changed to oral amoxicillin for an additional 12 days postdischarge. Urine
culture was positive for Enterococcus faecalis. Patient was noted to have hyperglycemia with history of diabetes. Patient and reported that his hemoglobin A1c was coming down and becoming better controlled after recent changes to his regimen.
Patient was given insulin treatment for hyperglycemia. Patient was anxious to go home despite hyperglycemia and reported that he felt comfortable managing his diabetes at home. Patient was able to tolerate diet. He remained hemodynamically
stable and was discharged home in a stable condition.
Discharge Plan
-
Patient Disposition: Home (Routine Discharge)
Discharge Diagnosis/Procedures: Hyperkalemia, resolved
Hyponatremia
Anemia of chronic kidney disease
Catheter associated urinary tract infection
Hypertension
Diabetes
Diet: Diabetic, Carb Controlled
Referrals:
Unruly Farah MD [Active] - (call [phone] to arrange follow up [ if you do not already have an appt] call if any urgencies )
Tyler Cristobal, [Active] - None (As needed. Call with questions.)
NONE,* [Family Provider] -
Prescriptions:
New
amoxicillin 500 mg capsule
500 mg PO TID 12 Days Qty: 36 0RF
Continued
amlodipine 5 mg Tablet
10 mg PO DAILY
tamsulosin 0.4 mg Capsule
0.4 mg PO QPM
atorvastatin 80 mg Tablet
80 mg PO QPM
chromium picolinate 500 mcg Capsule
500 mcg PO DAILY
red yeast rice 600 mg Capsule
1,200 mg PO DAILY
prasugrel 5 mg Tablet
5 mg PO DAILY
PreserVision AREDS 2,148 mcg-113 mg-45 mg-17.4mg Tablet
1 tab PO BID
insulin degludec [Tresiba U-100 Insulin] 100 unit/mL Solution
8 unit SC DAILY
carvedilol [Coreg] 12.5 mg Tablet
12.5 mg PO BID
milk thistle 175 mg Tablet
175 mg PO DAILY
losartan 100 mg Tablet
100 mg PO DAILY
therapeutic multivitamin Tablet
1 tab PO DAILY
Discontinued
cephalexin 500 mg Capsule
500 mg PO BID
Discharge Orders:
Discharge Patient (As Directed); Ordered 03/23/24
Ordered By: Elva Dumont
Discharge Date and Time
Discharge Date/Time: 03/23/24 17:59
Print Language: EQUATORIAL GUINEAN
== END 2024-03-23 17:59 | disposition home or self-care (01) | DRG 699 ==
LOC: 4 WEST ACU 15:03
PROVIDERS: Physician Assistant; ADMITTING PHYSICIAN Internal Medicine; ATTENDING PHYSICIAN Internal Medicine; CONSULT PHYSICIAN Specialist; EMERGENCY PHYSICIAN Student in an Organized Health Care Education/Training Program; OTHER PHYSICIAN Internal Medicine Infectious Disease
DX: T83.511A Infection and inflammatory reaction due to indwelling urethral catheter, initial encounter (principal); D62 Acute posthemorrhagic anemia; E87.1 Hypo-osmolality and hyponatremia; N13.8 Other obstructive and reflux uropathy; N18.4 Chronic kidney disease, stage 4 (severe); D63.1 Anemia in chronic kidney disease; E11.22 Type 2 diabetes mellitus with diabetic chronic kidney disease; E11.65 Type 2 diabetes mellitus with hyperglycemia; I12.9 Hypertensive chronic kidney disease with stage 1 through stage 4 chronic kidney disease, or unspecified chronic kidney disease; N39.0 Urinary tract infection, site not specified; B95.2 Enterococcus as the cause of diseases classified elsewhere; Y84.6 Urinary catheterization as the cause of abnormal reaction of the patient, or of later complication, without mention of misadventure at the time of the procedure; E78.00 Pure hypercholesterolemia, unspecified; E87.5 Hyperkalemia; I25.10 Atherosclerotic heart disease of native coronary artery without angina pectoris; I25.2 Old myocardial infarction; Z95.5 Presence of coronary angioplasty implant and graft; N31.2 Flaccid neuropathic bladder, not elsewhere classified; N40.1 Benign prostatic hyperplasia with lower urinary tract symptoms; K04.7 Periapical abscess without sinus; Z79.4 Long term (current) use of insulin; Z79.899 Other long term (current) drug therapy; Z87.440 Personal history of urinary (tract) infections; Z88.8 Allergy status to other drugs, medicaments and biological substances
CPT/HCPCS: 80048; 80053; 81003; 81015; 82947; 82962; 83036; 84132; 85025; 85027; 87077; 87086; 87186; 93005; 96372; 96374; 99285

== ENCOUNTER 2024-04-26 17:29 | Inpatient (IN) | payer MEDICARE, OTHER, SELFPAY ==
[2024-04-26] VITALS (16 sets, daily range): BP systolic 84–171; BP diastolic 40–97; BMI 23.8
[2024-04-26 13:59] LABS: Hematocrit 23.6 % (39.0-52.0); Hemoglobin 7.5 g/dL (13.0-18.0); Mean Corp Hgb Conc. 31.8 g/dL (33.0-37.0); Mean Corpuscular Hgb 28.5 pg (27.0-31.0); Mean Corpuscular Volume 89.7 fL (80.0-94.0); Mean Platelet Volume 9.7 fL (7.4-10.4); Platelet Count 313 10^3/uL (130-400); Red Blood Cell Count 2.63 10^6/uL (4.70-6.10); Red Cell Dist. Width 15.8 % (11.5-14.5); White Blood Cell Count 19.4 10^3/uL (4.8-10.8)
[2024-04-26 14:13] LABS: % Basophils 0.2 % (0-2); % Eosinophils 0.1 % (0-6); % Lymphocytes 2.3 % (20.5-51.1); % Monocytes 3.8 % (1.7-9.3); % Neutrophils 91.6 % (42.2-75.2); Absolute Immature Granulocytes 0.4 10^3/uL (0-0.05); Absolute Lymphocytes 0.5 10^3/uL (1.2-3.4); Absolute Monocytes 0.7 10^3/uL (0.1-0.6); Absolute Neutrophils 17.8 10^3/uL (1.4-6.5); Nucleated Red Blood Cells % 0 % (-)
[2024-04-26 14:21] LABS: ALT (SGPT) 53 U/L (0-50); AST (SGOT) 42 U/L (17-59); Albumin 2.4 g/dl (3.5-5.0); Alkaline Phosphatase 347 U/L (38-126); Blood Urea Nitrogen 110 mg/dl (9-20); Calcium 7.8 mg/dl (8.4-10.2); Carbon Dioxide 13 mmol/L (22-30); Chloride 88 mmol/L (98-107); Sodium 118 mmol/L (135-145); Total Bilirubin 0.7 mg/dl (0.2-1.3); Total Protein 5.2 g/dl (6.3-8.2); eGFR 7.67
[2024-04-26 14:42] LABS: Glucose - Point of Care > 600 mg/dl (70-99)
--- NOTE | 2024-04-26 14:43 | ED.GENMED ---
History of Present Illness
General
Chief Complaint: Change in Mental Status
Source: patient and spouse
Time Seen by Provider: 04/26/24 14:23
History of Present Illness
History of Present Illness:
83-year-old male brought to the emergency room for evaluation of generalized weakness. Patient's states he has been increasingly weak over the past 3 days in particular but even sometime before that. He has decreased appetite though he is
tolerating oral intake. He seems somewhat confused. His glucose monitor has been reading high. Patient has an indwelling Rosenthal catheter which seems to drain well at times and at other times not draining adequately. Currently there is purulent
urine in his Rosenthal bag. Patient seems somewhat confused and is unable to answer any questions. Patient attempt to walk he seems quite off balance and weak.
Past History
Past History
ED Past Medical History: CAD, HTN, IDDM and Renal failure
ED Past Surgical History: Cardiac
Social History
Tobacco: Non-smoker
Alcohol: None
Drug: None
Personal:
Living: with family
Phy Exam
Physical Exam
Physical Exam:
General: Awake, Alert, oriented to person and place, dazed appearance, seems ill
Vitals: Afebrile, somewhat bradycardic
Head: Atraumatic
Eyes: Pupils equal, EOMI
Throat: Airway intact, no exudates, dry mucosa
Neck: Trachea midline
Lungs: Clear and equal b/l
Heart: Regular rate, no murmurs
Abd: Soft, Nontender, No pulsatile mass
Neuro: Nonfocal but confused
Skin: Warm, dry, no rash
Extremities: pulses equal b/l, no edema
Course
Orders/Labs/Results
Orders:
Orders
04/26/24
Electrocardiogram (*1) Stat
Comment: ALREADY DONE
04/26/24 13:39
CMP [Comprehensive Metabolic Panel] Urgent
Complete Blood Count/With Diff Urgent
04/26/24 14:39
Cardiac Monitoring- Treatment ONCE
Albuterol Sulfate [Ventolin Nebules] 10 mg INH R NOW STA
Calcium Gluconate 1,000 mg IV NOW STA
Dextrose 50%-Water [Dextrose 50% Syringe] 12.5 grams IV [id number] PRN
Insulin Human Regular [Novolin R] 10 units IV NOW STA
04/26/24 14:42
Bedside Glucose PRE IV Insulin- HyperK+ NOW
04/26/24 14:43
CR Chest Portable - 1 View Urgent
Comment:
Reason For Exam: acute renal failure
Reason Study Needs to be Portable: Patient Unstable
04/26/24 Dinner
NPO
Allow oral meds: Yes
Allow clear liquids: Sips of Clears
04/26/24 15:02
Lactic Acid Q4H
Comment: CANCEL 2nd LACTIC ACID IF 1st LACTIC ACID IS LESS THAN 2
Blood Culture Urgent
TYSON Source: Blood/Venous
Specimen Description:
04/26/24 15:17
Lidocaine 2% [Lidocaine Uro-Jet 2%] 1 syringe .ROUTE .STK-MED ONE
04/26/24 15:38
Lactated Ringers [Lr] 1,000 ml IV BOLUS
04/26/24 15:46
Osmolality, Random Urine Urgent
Date Specimen was Collected: 04/26/24
Time Specimen was Collected: 15:45
Urinalysis Reflex To Culture Urgent
Date Specimen was Collected: 04/26/24
Time Specimen was Collected: 15:45
Urine Microscopic Reflex Cult Urgent
Urine Sodium Urgent
Date Specimen was Collected: 04/26/24
Time Specimen was Collected: 15:45
Urine Culture Urgent
TYSON Source: U
Specimen Description:
Date Specimen was Collected: 04/26/24
Time Specimen was Collected: 15:45
04/26/24 15:47
Bedside Glucose- Treatment Q1H
IV Insert/Care/Rem.- Treatment PRN
04/26/24 15:52
Venous Blood Gas Urgent
04/26/24 16:00
Basic Metabolic Panel Q2H
04/26/24 16:01
EKG [Electrocardiogram (*1)] Urgent
Reason for Study: Atrial Fibrillation
EKG- Treatment ONCE
Sodium Bicarbonate 50 meq IV NOW STA
04/26/24 16:07
CefTRIAXone [Rocephin] 1,000 mg IV NOW STA
04/26/24 16:10
PICC Line As Directed
04/26/24 16:11
NEPHROLOGY CONSULT Stat
Consulting Provider: Rafael Tavares
Was physician already notified: Yes
04/26/24 16:12
Bedside Glucose POST IV Insulin- HyperK+ Q1HX2,Q2HX2
04/26/24 16:15
0.9% Sodium Chloride 1000 ml [Nss] 1,000 ml IV 1,500 mls/hr
0.9% Sodium Chloride 1000 ml [Nss] 1,000 ml IV 125 mls/hr
Sterile Water For Inj [Sterile Water For Injection 1000 ml] 1,000 ml Sodium Bicarbonate 150 meq IV 200 mls/hr
04/26/24 16:17
Reg Insulin 100 Units/100 ml [Novolin R Insulin Infusion] 100 units in 100 ml IV NOW
04/26/24 16:18
Sterile Water [Sterile Water For Injection] 10 ml .ROUTE .STK-MED ONE
04/26/24 16:43
Admit/Transfer Patient As Directed
Co-Sign Provider:
Level of Care: Inpatient admission
Assign to:: ICU
Physician / Group: Hospitalist
Diagnosis: Acute hyperglycemia
Reason for Hospitalization: Acute Hyperglycemia, Acute hyponatremia, acute hyperkalemia
Expected length of stay greater than two midnights?: Yes
ELOS- Estimated Length of Stay in days: 3
I certify the patient meets the requirements for IP care: Yes
04/26/24 16:44
PRN Pain Medication Management As Directed
May give lesser potent ordered pain med per pt: Yes
preference::
Protocol:: Medication orders for pain may be administered in a
manner that supports deferring to patient preference
when the pt is:
- Requesting an ordered lesser potent pain medication.
Least to most potent pain medications are defined
as: acetaminophen < NSAID < tramadol < opioids
(morphine, oxycodone, hydromorphone).
- Requesting a lesser dose of the same medication IF
ORDERED.
- Requesting a less intrusive route of administration
if both routes are prescribed by the provider (PO <
IV).
04/26/24 16:55
Portable Chest Xray [CR Chest Portable - 1 View] Urgent
Comment:
Reason For Exam: PICC PLACEMENT
Reason Study Needs to be Portable: Patient Unstable
04/26/24 17:00
Activity As Directed
Activity Level: Out of Bed-Early Mobility
Bedside Glucose Monitoring As Directed
Frequency: Q6H
Intake/ Output As Directed
Frequency: Per unit guidelines
Notify MD As Directed
Notify physician if: Nurse to contact provider when glucose reaches 250 to obtain orders for D5 0.45 NaCl
Vital Signs As Directed
Frequency: Per unit guidelines
Weight As Directed
Frequency: Daily
04/26/24 17:02
DX Deep Vein Thrombosis Video Routine
04/26/24 17:43
Basic Metabolic Panel Q2H
04/26/24 19:19
Atorvastatin [Lipitor] 80 mg PO QPM
Tamsulosin [Flomax] 0.4 mg PO QPM
04/26/24 19:19
Compression Sleeves [Pneumatic Compression Sleeves] As Directed
Type: Knee high
DX Deep Vein Thrombosis Video Routine
04/26/24 19:21
Lactic Acid Q4H
Comment: CANCEL 2nd LACTIC ACID IF 1st LACTIC ACID IS LESS THAN 2
04/26/24 20:00
Basic Metabolic Panel Q2H
vitamins A,C,C-ktsc-molejh [PreserVision AREDS] 1 tablet PO BID
04/27/24 08:00
Finasteride [Proscar] 5 mg PO DAILY
prasugrel 5 mg PO DAILY
Abnormal Lab Results
04/26/24 04/26/24 04/26/24
13:39 14:40 15:02
WBC 19.4 H 10^3/uL
(4.8-10.8)
RBC 2.63 L 10^6/uL
(4.70-6.10)
Hgb 7.5 L g/dL
(13.0-18.0)
Hct 23.6 L %
(39.0-52.0)
MCHC 31.8 L g/dL
(33.0-37.0)
RDW 15.8 H %
(11.5-14.5)
Abs Immat Gran (auto) 0.4 H 10^3/uL
(0-0.05)
Absolute Neuts (auto) 17.8 H 10^3/uL
(1.4-6.5)
Absolute Lymphs (auto) 0.5 L 10^3/uL
(1.2-3.4)
Absolute Monos (auto) 0.7 H 10^3/uL
(0.1-0.6)
Immature Gran % 2.0 H %
(0-0.5)
Neutrophils % 91.6 H %
(42.2-75.2)
Lymphocytes % 2.3 L %
(20.5-51.1)
VBG pH
VBG pCO2
VBG pO2
VBG HCO3
Sodium 118 L* mmol/L
(135-145)
Potassium 7.0 H* mmol/L
(3.5-5.1)
Chloride 88 L mmol/L
(98-107)
Carbon Dioxide 13 L* mmol/L
(22-30)
BUN 110 H* mg/dl
(9-20)
Creatinine 6.7 H* mg/dL
(0.7-1.3)
Glucose 757 H* mg/dl
(70-99)
Lactic Acid 2.6 H mmol/L
(0.7-2.0)
Calcium 7.8 L mg/dl
(8.4-10.2)
ALT 53 H U/L
(0-50)
Alkaline Phosphatase 347 H U/L
(38-126)
Total Protein 5.2 L g/dl
(6.3-8.2)
Albumin 2.4 L g/dl
(3.5-5.0)
Ur Occult Blood Reflex
Leukocyte Esterase Rfl
Urine WBC (Reflex)
Urine Glucose
Urine Albumin (Reflex)
POC Glucose > 600 H* mg/dl
(70-99)
04/26/24 04/26/24 04/26/24
15:46 15:52 17:05
WBC
RBC
Hgb
Hct
MCHC
RDW
Abs Immat Gran (auto)
Absolute Neuts (auto)
Absolute Lymphs (auto)
Absolute Monos (auto)
Immature Gran %
Neutrophils %
Lymphocytes %
VBG pH 7.23 L
(7.32-7.43)
VBG pCO2 33 L mmHg
(35-48)
VBG pO2 103 H mmHg
(30-50)
VBG HCO3 13.8 L mmol/L
(22-27)
Sodium
Potassium
Chloride
Carbon Dioxide
BUN
Creatinine
Glucose
Lactic Acid
Calcium
ALT
Alkaline Phosphatase
Total Protein
Albumin
Ur Occult Blood Reflex 4+ A
(Negative)
Leukocyte Esterase Rfl 2+ A
(Negative)
Urine WBC (Reflex) >100 A /HPF
(0-5)
Urine Glucose 3+ A
(Negative)
Urine Albumin (Reflex) 3+ A
(Neg - Trace)
POC Glucose 556 H* mg/dl
(70-99)
04/26/24 13:39
Vital Signs
Initial and Last Documented VS:
Initial Vital Signs
Temp Pulse Resp BP Pulse Ox
98.1 F 76 18 102/51 97
04/26/24 13:29 04/26/24 13:29 04/26/24 13:29 04/26/24 13:29 04/26/24 13:29
Last Documented Vital Signs
Temp Pulse Resp BP Pulse Ox
98.1 F 64 16 107/40 97
04/26/24 13:29 04/26/24 18:00 04/26/24 18:00 04/26/24 18:00 04/26/24 18:00
MDM/Problems Addressed
Differential Diagnosis Includes:
bladder outlet obstruction, uti, dka, medication induced renal failure
MDM/Problems Addressed:
Patient presents with lethargy, difficulty walking, decreased urine output. Labs drawn in triage show multiple critical values including acute renal failure with a BUN of 110 and creatinine is 6.7. Patient was discharged with a creatinine of 1.6 a
month ago. Patient also has multiple electrolyte abnormalities. His sodium is measured at 118 though corrects to 129. He has critical hyperkalemia at 7.0. He has a metabolic acidosis with an anion gap. Patient's Rosenthal catheter was removed and a
new Rosenthal placed to exclude bladder outlet obstruction and also to get a specimen that was suitable for a urine culture. There is no urine return with a changed Rosenthal. A bladder scan was also performed that confirms an empty bladder. Patient's
glucose is 757. The overall presentation is suggestive of HHS and/or DKA with associated renal failure likely from dehydration. Patient also has been having issues with his Rosenthal draining and not draining intermittently. Perhaps there is a
component of bladder outlet obstruction affecting his renal function. Currently he does not have any bladder outlet obstruction however. Patient's critical hyperkalemia was treated with IV insulin, albuterol, calcium gluconate. His EKG showed
only first-degree AV block fortunately. He developed atrial fibrillation with a controlled rate while here. IV fluid resuscitation was initiated. Nephrology consultation was obtained given his lack of urine output and critical hyperkalemia. "Antonio"Anusha came immediately to the emergency room to evaluate the patient. He recommended aggressive IV fluid resuscitation. He is hopeful the patient can avoid dialysis with aggressive fluid resuscitation. Patient had purulent urine in his collection
bag on arrival. Empiric IV Rocephin administered. Patient is not febrile however. White count is elevated at 19,000 but given his multiple medical issues this may be more of an acute phase reactant rather than a reflection of sepsis. Venous
blood gas was obtained which showed pH of 7.23. Chest x-ray was relatively unremarkable. Patient will be mated to the intensive care unit.
*Radiology
Radiology exam reviewed: preliminary read by ED provider (No acute findings on my review)
*Pulse Oximetry
Patient hypoxic: no
*EKG
Interpreted by ED Provider?: Yes
Interpretation: abnormal
Heart Rate: 53
Rate: bradycardiac
Rhythm: sinus
Interval: first degree heart block
QRS Pattern: other (Somewhat widened QRS,)
Ischemia: non-specific ST changes
*Supervisory Historian Interpretation
Rate: bradycardiac
Interpretation: abnormal
Rhythm: sinus
*Critical Care Note
Total Time (30-74mins, 75-104mins- exclusive of procedures): 55 min
comment:
Critical care statement: A total of 55 minutes of critical care time was provided for this patient. This includes management of unstable vital signs, evaluation of the patient at bedside, reviewing the patient's pertinent medical records, discussion
with consultants, review of old EKGs and review of pertinent medical records. This time with separate from time utilized to perform the aforementioned documented procedures
Data Reviewed
Review of Other/Old Records Reveals: Labs (From recent March hospitalization), Progress Notes (Particular urology notes from recent hospitalization) and Discharge Summary (From hospitalization in March)
Patient Management
Social determinants of health affecting care: Living situation
Discussion with other providers: Hospitalist
ED Attending Note
-
Portions of this chart may have been created with voice recognition software.� Occasional wrong word or��sound alike� substitutions may have occurred due to the inherent limitations of voice recognition software.
Discharge Plan
Departure
Patient Disposition: Admit
Date of Disposition: 04/26/24
Time of Disposition: 15:50
Admit to: ICU
Presentation/result/management discussed w/ accepting MD/DO: Hospitalist
Condition: Critical
Discharge Problem:
Acute hyperkalemia, Acute urinary retention, Acute renal failure (ARF), Hyperosmolar hyperglycemic state (HHS)
Interventions
Interventions:
*Risk Screen - Suicide Last Done: 04/26/24 13:32
*General Assessment Last Done: 04/26/24 13:32
*ED COVID-19 Vaccine History Last Done: 04/26/24 13:32
ED- Neurological Assessment Last Done: 04/26/24 17:27
[2024-04-26 14:47] LABS: Glucose 757 mg/dl (70-99)
[2024-04-26] MEDS: NOVOLIN R 10 UNITS IV (14:51)
[2024-04-26] MEDS: VENTOLIN NEBULES 10 MG INH (14:54)
[2024-04-26] MEDS: CALCIUM GLUCONATE 1000 MG IV (14:54)
[2024-04-26 15:31] LABS: Lactic Acid 2.6 mmol/L (0.7-2.0)
[2024-04-26 15:57] LABS: Urine Albumin 3+ (Neg - Trace); Urine Bilirubin Negative (Negative); Urine Character Slightly Cloudy (Clear); Urine Color Yellow; Urine Glucose 3+ (Negative); Urine Ketone Negative (Negative); Urine Leukocyte 2+ (Negative); Urine Nitrite Negative (Negative); Urine Occult Blood 4+ (Negative); Urine Specific Gravity 1.015 (<1.030); Urine Urobilinogen Negative (Neg - 1+)
--- NOTE | 2024-04-26 15:58 | W.CON.NEPH ---
Consultation
-
Date/Time Consultation Requested: 04/26/2024 3 PM
Date/Time Consultation Performed: 04/26/2024 4 PM
Requesting Provider: Dr. De
Performing Provider: Dr. Tavares
Reason for Consultation: ARISTEO
Medical History
-
Chief Complaint: Lethargy
History of Present Illness:
This is an 83-year-old gentleman who has hypertension on a multidrug regimen, neurogenic/atonic bladder with chronic Rosenthal catheter. It was felt that he may ultimately require a suprapubic catheter but this was postponed given need for
anticoagulation. He has diabetes mellitus type 2 on insulin therapy. He was recently in the hospital about 1 month ago with urinary tract infection. He was treated for his infection with antibiotics and catheter was placed and this was maintained
because of persistent retention. At the time of discharge his creatinine is 1.6 with uncertain baseline. At home his says that he was slowly becoming weaker every day but in the last 3 days has been extremely lethargic. He had also began to
stumble as well. His oral intake otherwise was fine and he has no issues with taking his medications. She does note that his Rosenthal catheter had intermittent drainage where 1 day the drainage would be consistent and another day there will be very
little drainage. At the time of admission the emergency room he had very thick purulent urine with small amounts. Rosenthal catheter was replaced with very little additional output. Bladder scan did not show high residuals. His creatinine was noted
to be elevated at 6.7 with a potassium of 7.0 and a sodium of 118. His glucose was 757. He had a metabolic acidosis with a lactic acidosis as well. We are asked to assist with management of multiple issues. Is currently critically ill and will
be going to the ICU.
Past Medical History
Diabetes mellitus type 2, hypertension, coronary disease, CKD 3b, neurogenic bladder, coronary stenting
Social History
Tobacco: Non-Smoker
Alcohol: None
Family History
Family History: Not Pertinent
Allergies / Home Medications
Allergy/AdvReac Type Severity Reaction Status Date / Time
clopidogrel [From Plavix] Allergy Unknown Verified 03/21/24 10:20
�Medication �Instructions �Recorded �Confirmed �Type
amlodipine 5 mg tablet 10 mg PO DAILY 03/08/24 04/26/24 History
tamsulosin 0.4 mg capsule 0.4 mg PO QPM 03/08/24 04/26/24 History
atorvastatin 80 mg tablet 80 mg PO QPM 03/16/24 04/26/24 History
chromium picolinate 500 mcg capsule 500 mcg PO DAILY 03/16/24 04/26/24 History
insulin degludec 100 unit/mL 10 unit SC DAILY 03/16/24 04/26/24 History
subcutaneous solution (Tresiba
U-100 Insulin)
prasugrel 5 mg tablet 5 mg PO DAILY 03/16/24 04/26/24 History
red yeast rice 600 mg capsule 1,200 mg PO DAILY 03/16/24 04/26/24 History
vitamins A,C,J-nliq-wgrfsj 2,148 1 tab PO BID 03/16/24 04/26/24 History
mcg-113 mg-45 mg-17.4 mg tablet
(PreserVision AREDS)
carvedilol 12.5 mg tablet (Coreg) 12.5 mg PO BID 03/21/24 04/26/24 History
milk thistle 175 mg tablet 175 mg PO DAILY 03/21/24 04/26/24 History
therapeutic multivitamin 1 tab PO DAILY 03/21/24 04/26/24 History
finasteride 5 mg tablet 5 mg PO DAILY 04/26/24 04/26/24 History
Review of Systems
-
Patient was obtunded
History Source: Family
All other systems: Negative unless noted
Physical Exam
Vital Signs
Vital Signs
Temp Pulse Resp BP Pulse Ox
98.1 F 57 18 171/64 98
04/26/24 13:29 04/26/24 14:57 04/26/24 14:57 04/26/24 14:30 04/26/24 14:57
Lab Results
WBC 19.4 10^3/uL (4.8-10.8) H 04/26/24 13:39
RBC 2.63 10^6/uL (4.70-6.10) L 04/26/24 13:39
Hgb 7.5 g/dL (13.0-18.0) L 04/26/24 13:39
Hct 23.6 % (39.0-52.0) L 04/26/24 13:39
Plt Count 313 10^3/uL (130-400) 04/26/24 13:39
eGFR 7.67 04/26/24 13:39
Albumin 2.4 g/dl (3.5-5.0) L 04/26/24 13:39
Laboratory Tests
03/23/24
10:00
Sodium 133 L
Potassium 4.8
Carbon Dioxide 23
Creatinine 1.6 H
Glucose 458 H*
Physical Exam
Patient is awake alert oriented and in no distress. Mood and affect were pleasant, insight and judgment were good. Pupils are equal round and reactive to light, extraocular movements are intact, sclera were anicteric. Hearing was normal, ears and
nose are intact. Oropharynx was clear. Neck was supple with trachea midline and no thyromegaly. Heart was regular rate and rhythm without rubs. Lower extremities without edema. Lungs were clear to auscultation bilaterally and with normal
excursion. Abdomen was soft, nontender, with normal active bowel sounds, and no hepatosplenomegaly. Skin was without rash and with normal turgor.
Data Reviewed
-
Radiology: Image Personally Visualized and interpreted (Chest x-ray pending)
Medical Tests (Nuc Med, Echo etc): Image Personally Visualized and interpreted (EKG on 04/26/2024 by my read shows atrial fibrillation)
Labs: Labs Reviewed by me
Old Records: Reviewed
Assessment/Plan
-
Assessment
Hypertension
ARISTEO
DKA
Metabolic acidosis
Lactic acidosis
Hyperkalemia
Hyponatremia
azotemia
Neurogenic bladder
Coronary artery disease
Plan
Treat potassium medically
Insulin drip DKA
3 L saline bolus minimum, then saline at 125 cc/h
Serial BMP
Maintain Rosenthal
ARISTEO is likely due to combination of neurogenic bladder in setting of severe DKA
I discussed with the at great length.
We should be able to escape dialysis as the DKA is corrected. The does understand that there is a possibility of dialysis
Critical care time 42 minutes
[2024-04-26 16:03] LABS: Osmolality Urine 338 mOsm/kg (300-900)
[2024-04-26 16:09] LABS: Venous Blood Gas B.E. -12.7 mmol/L (-4 to +4); Venous Blood Gas HCO3 13.8 mmol/L (22-27); Venous Blood Gas O2 Sat % 97.9 %; Venous Blood Gas pCO2 33 mmHg (35-48); Venous Blood Gas pH 7.23 (7.32-7.43); Venous Blood Gas pO2 103 mmHg (30-50)
[2024-04-26 16:13] LABS: Urine Sodium 49 mmol/L (30-90)
[2024-04-26] MEDS: SODIUM BICARBONATE 50 MEQ IV (16:20)
--- NOTE | 2024-04-26 16:24 | HPS.HSE ---
Addendum entered and electronically signed by Mona De MD 04/26/24 21:19:
I personally performed a history and physical exam of the patient and discussed management with the resident. I reviewed the resident's note and agree with the documented findings and plan of care HPI/CC.
GENERAL: well developed, well nourished, pale appearing male appears sick but in no apparent distress
HEENT: NC/AT -- no O2 requirements
HEART: irreg irreg but not tachycardic
LUNGS : clear to auscultation bilaterally
ABDOM: soft, nontender, nondistended, + bowel sounds
EXT: no cyanosis, clubbing, or edema
NEUROLOGIC: grossly intact
: valverde cath with scant yellow urine
Toxic metabolic encephalopathy--multiple possibilities--HHS/DKA (less likely), hyponatremia, uremia/azotemia, infection/sepsis--ADMIT to ICU--consult administration manager--agree with IVF and insulin drip, Q1H accuchecks and Q4H BMP--trend lactates--check
blood and urine cultures, cont zosyn--hold on vanco for now--consider ID consult
Metabolic acidosis with lactic acidosis--likely from uremia and ARISTEO rather than DKA--ABG reviewed, AGAP 17--stop IVF with bicarb--cont NSS as per renal--continue valverde cath--apprec renal--valverde changed--cont zosyn--IF DKA, cont insulin drip until
AGAP closes
type 2 DM--doubt DKA, no ketones in urine, beta hydroxybutyrate neg--hold Tresiba--cont insulin drip--consult DM UNDERCUTTER OPERATOR for assistance with converting back to SC insulin--NPO for now--Farxiga stopped as outpt
ARISTEO with hyperkalemia on CKD stage 3B--with hyperkalemia, acidosis--consider need for urgent dialysis--with ED interventions and IVF, metabolic abnormalities are already improving--apprec renal
hyponatremia--sodium 118 on admission--with blood sugar 700, likely pseudohyponatremia and corrected sodium is 129--still low however, in part likely due to volume depletion--cont NSS and follow BMP
anemia --likely of chronic disease--HGB 7.5--would check iron, TIBC, %SAT, ferritin, B12 and folate for completeness--HGB may drop with hydration, consideration for blood transfusion, will need consent
elevated LFTs--no abdominal pain--likely due to sepsis, infection--would check abdominal US--follow labs
New onset Atrial fibrillation--no history--in addition, 1st EKG in ED no afib, 2nd showed afib--rate controlled, if becomes fast, would add cardizem drip--hold on IV heparin for now--consult cards
Neurogenic bladder with chronic valverde catheter--changed in ED--consider urology consult--cont finasteride, tamsulosin
essential HTN -- cont meds as able--losartan stopped due to increased potassium
HLD--hold atorvastatin
CAD s/p stent in place--cont Prasugrel
Code status -- DNR
DVT prophylaxis--SC Heparin
Total Critical Care Time 60 minutes. I was immediately available to the patient and staff. I personally examined, reviewed labs, diagnostic images/reports, interpretations, treatment plans, discussed patient care with other providers and family
or caregivers (if patient is unable to make decisions), entered orders as appropriate and documented the medical record.
Original Note:
Family Physician
-
Family Physician: * NONE
Chief Complaint
-
Confusion and lethargy
History of Present Illness
83-year-old male with known past medical history of essential hypertension currently on multiple drugs, insulin-dependent diabetes, neurogenic/atonic bladder with chronic Valverde catheter, coronary artery disease/DE 3 years ago s/p cardiac stenting
and currently on prasugrel and CKD 3B presented with his due to confusion and lethargy for few days. He was recently in the hospital about 1 month ago with UTI and was treated with antibiotics and catheter was placed due to persistent
retention. At the time of the discharge creatinine was 1.6 with uncertain baseline. His noted that they had a routine echo appointment today with the librarian head however he passed out and fell after echo in the office and the librarian head
recommended to go to ER. She further noted that the Valverde catheter had intermittent drainage where 1 day the drainage would be consistent and the next day the bag will be empty. At the time of the admission he had thick purulent urine with small
amounts per EMR documentation. Valverde catheter was replaced which produced very little additional output. Bladder scan did not show high residuals. The blood work showed elevated creatinine at 6.7, potassium 7.0, sodium 118 and blood glucose was
757. EKG also showed atrial fibrillation, patient and denied any past history.
Medical History
Past Medical History
Past Medical History: Reports CAD, HTN and IDDM
Additional Past Medical History:
CKD 3B, neurogenic bladder, hyperlipidemia
Past Surgical History: Reports Cardiac (Stent)
Additional Past Surgical History:
Cardiac stenting
Social History
Tobacco: Non-smoker
Alcohol: None
Drug: None
Personal:
Living: With Family
Family History
Family History: Not pertinent
Allergies / Home Medications
Allergies reflects when Allergies were last updated in [employer].
Home Medications with original date entered in [employer]
Allergy/Medication List:
Allergies
Allergy/AdvReac Type Severity Reaction Status Date / Time
clopidogrel [From Plavix] Allergy Unknown Verified 03/21/24 10:20
Home Medications
amlodipine 5 mg tablet 10 mg PO DAILY 03/08/24
tamsulosin 0.4 mg capsule 0.4 mg PO QPM 03/08/24
atorvastatin 80 mg tablet 80 mg PO QPM 03/16/24
chromium picolinate 500 mcg capsule 500 mcg PO DAILY 03/16/24
insulin degludec 100 unit/mL subcutaneous solution (Tresiba U-100 Insulin) 10 unit SC DAILY 03/16/24
prasugrel 5 mg tablet 5 mg PO DAILY 03/16/24
red yeast rice 600 mg capsule 1,200 mg PO DAILY 03/16/24
vitamins A,C,E-ueoj-cbkiui 2,148 mcg-113 mg-45 mg-17.4 mg tablet (PreserVision AREDS) 1 tab PO BID 03/16/24
carvedilol 12.5 mg tablet (Coreg) 12.5 mg PO BID 03/21/24
milk thistle 175 mg tablet 175 mg PO DAILY 03/21/24
therapeutic multivitamin 1 tab PO DAILY 03/21/24
finasteride 5 mg tablet 5 mg PO DAILY 04/26/24
Review of Systems
-
History Source: Patient
A 12 point ROS was completed and negative except as noted: Yes
Physical Exam
Vital Signs
Vital Signs
Temp Pulse Resp BP Pulse Ox
98.1 F 57 18 171/64 98
04/26/24 13:29 04/26/24 14:57 04/26/24 14:57 04/26/24 14:30 04/26/24 14:57
Physical Exam
General: Well Nourished, Appears Chronically Ill and Other (Valverde catheter in place)
HEENT: Atraumatic
Respiratory: Clear
Cardiac: S1/S2 and Irregular Rhythm
GI: Soft and Non Tender
Musculoskeletal: No Edema
Skin: Warm and Dry
Neuro: Awake, Alert and Nonfocal/grossly intact
Psych: Calm
Laboratory Results
-
04/26/24 13:39
Laboratory Results
Lactic Acid 2.6 mmol/L (0.7-2.0) H 04/26/24 15:02
Total Bilirubin 0.7 mg/dl (0.2-1.3) 04/26/24 13:39
AST 42 U/L (17-59) 04/26/24 13:39
ALT 53 U/L (0-50) H 04/26/24 13:39
Alkaline Phosphatase 347 U/L (38-126) H 04/26/24 13:39
Data Reviewed
-
Diagnostic Radiology: Image Personally Visualized and interpreted, Report Reviewed by me and Discussed with Patient
Lab Data: Labs Reviewed by me, Discussed with Physician, Discussed with Patient and Discussed with Family
Impression/Plan
-
# Toxic encephalopathy likely due to DKA versus HHS versus hyponatremia
-Continue insulin drip
-Continue IV fluids
-Monitor glucose every hour, BMP every 4 hours
-IV Zosyn
-Sodium trending upward(corrected sodium at admission 129)
-If condition does not improve may need dialysis
# Metabolic acidosis
-Order ABGs
-Lactic acidosis versus DKA versus uremia
-Anion gap 17 on admission
-Continue insulin drip until the gap close
# ARISTEO on CKD
-Continue IV fluids
-Nephro consulted
# Atrial fibrillation
-New onset
-Rate controlled at this time
-Cardiology consulted
# Hyperkalemia
-Periodic BMP
-Trending down likely resolve with control of metabolic acidosis
# Neurogenic bladder
-Continue Valverde catheter
-Nephro consulted
Code: DNR
DVT prophylaxis: Heparin
[2024-04-26 16:40] LABS: Urine White Cell >100 /HPF (0-5)
[2024-04-26] MEDS: NSS 1000 IV ×3 (17:04→17:22)
[2024-04-26 17:06] LABS: Glucose - Point of Care 556 mg/dl (70-99)
[2024-04-26] MEDS: ROCEPHIN 1000 MG IV (17:06)
[2024-04-26] MEDS: NOVOLIN R INSULIN INFUSION 100 IV (17:16)
--- NOTE | 2024-04-26 17:31 | CM ---
Patient in ED for admission to ICU. CM reviewed recent hospitalization and patient has stated that patient lives with her in a 2 story home, no steps to enter. Patient has no DME in the past nor VN or SNF use. Patient has several specialists
but was provided with residency clinic information after recent hospitalization. Patient uses [facility] in [place] and confirmed coverage via [employer]. 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 CM will review with patient and discharge planning needs.
Plan: SNF vs home with Vn
[2024-04-26 18:08] LABS: Blood Urea Nitrogen 108 mg/dl (9-20); Carbon Dioxide 14 mmol/L (22-30); Chloride 97 mmol/L (98-107); Estimated Creatinine Clearance 9 ml/min; Glucose 532 mg/dl (70-99); Potassium 5.4 mmol/L (3.5-5.1); Sodium 122 mmol/L (135-145); eGFR 9.12
--- NOTE | 2024-04-26 18:14 | VATNOTE ---
Post PICC placement CXR confirms L PICC line tip placement in the SVC. PCN notified line is OK to use.
[2024-04-26 18:17] LABS: Glucose - Point of Care 514 mg/dl (70-99)
[2024-04-26] MEDS: NSS IV (18:18)
[2024-04-26 18:46] LABS: B.E. -12.3 mmol/L; O2 Saturation % 97.7 % (94-98); PCO2 27 mmHg (35-48); PO2 98 mmHg (83-108); pH 7.29 (7.35-7.45)
[2024-04-26 18:51] LABS: Glucose 496 mg/dl (70-99)
[2024-04-26 18:55] LABS: B-Hydroxybutyrate 0.14 mmol/L (0.02-0.27)
[2024-04-26 19:38] LABS: Lactic Acid 1.7 mmol/L (0.7-2.0)
[2024-04-26] MEDS: FLOMAX 0.4 MG PO (20:43)
[2024-04-26] MEDS: LIPITOR 80 MG PO (20:43)
[2024-04-26] MEDS: OCUVITE SOFTGEL 1 CAP PO (20:43)
[2024-04-26] MEDS: COREG 12.5 MG PO (20:43)
[2024-04-26] MEDS: ZOSYN 50 IV (20:50)
--- NOTE | 2024-04-26 21:00 | PTCARENOTE ---
Received pt via transfer from ER. Pt oriented to person but not place or time. AFib on the monitor, palpable pulses on extremities with +1 edema on lower extremities. 97% on room air, dyspneic on exertion and diminished throughout w/ nonproductive
cough. Hypoactive bowel sounds in all 4Q. Rosenthal catheter in place draining morse, milky urine. Skin CDI, w/ mole on tip of penis that pt states is normal. Insulin gtt and fluids running see flowsheet. Call shaffer at bedside.
[2024-04-26 21:33] LABS: Glucose - Point of Care 477 mg/dl (70-99)
[2024-04-26 21:42] LABS: Hematocrit 20.3 % (39.0-52.0); Hemoglobin 6.9 g/dL (13.0-18.0)
[2024-04-26 21:57] LABS: Glucose 379 mg/dl (70-99)
[2024-04-26 22:47] LABS: Blood Urea Nitrogen 103 mg/dl (9-20); Calcium 6.9 mg/dl (8.4-10.2); Carbon Dioxide 12 mmol/L (22-30); Chloride 102 mmol/L (98-107); Estimated Creatinine Clearance 10 ml/min; Glucose 352 mg/dl (70-99); Potassium 5.1 mmol/L (3.5-5.1); Sodium 127 mmol/L (135-145); eGFR 9.93
[2024-04-26] MEDS: CALCIUM GLUCONATE 100 IV (23:16)
[2024-04-26 23:18] LABS: Glucose - Point of Care 332 mg/dl (70-99)
[2024-04-26] MEDS: HEPARIN 5000 UNITS SC (23:37)
[2024-04-27] VITALS (31 sets, daily range): BP systolic 79–130; BP diastolic 33–101; BMI 23.9
[2024-04-27] MEDS: CALCIUM GLUCONATE 100 IV (00:41)
[2024-04-27] MEDS: NSS 1000 IV (00:41)
--- NOTE | 2024-04-27 00:47 | PTCARENOTE ---
All systems reassessed. Restraints applied due to patient attempting to removing tubing. Labs drawn and hygiene performed. Call shaffer at bedside.
[2024-04-27 01:20] LABS: Glucose - Point of Care 119 mg/dl (70-99)
[2024-04-27 02:14] LABS: Glucose - Point of Care 100 mg/dl (70-99)
--- NOTE | 2024-04-27 04:03 | PTCARENOTE ---
All systems reassessed. One unit of PRBC being transfused, patient remains restless and confused. Hygiene performed.
[2024-04-27] MEDS: ZOSYN 50 IV ×3 (04:06→17:40)
[2024-04-27 04:07] LABS: Glucose - Point of Care 108 mg/dl (70-99)
[2024-04-27 05:23] LABS: Glucose - Point of Care 123 mg/dl (70-99)
[2024-04-27 05:38] LABS: Blood Urea Nitrogen 109 mg/dl (9-20); Carbon Dioxide 13 mmol/L (22-30); Chloride 101 mmol/L (98-107); Estimated Creatinine Clearance 9 ml/min; Glucose 99 mg/dl (70-99); Potassium 5.8 mmol/L (3.5-5.1); Sodium 131 mmol/L (135-145); eGFR 8.93
[2024-04-27 06:13] LABS: Glucose - Point of Care 117 mg/dl (70-99)
[2024-04-27 06:42] LABS: Hematocrit 22.3 % (39.0-52.0); Hemoglobin 7.9 g/dL (13.0-18.0); Mean Corp Hgb Conc. 35.4 g/dL (33.0-37.0); Mean Corpuscular Hgb 29.7 pg (27.0-31.0); Mean Corpuscular Volume 83.8 fL (80.0-94.0); Mean Platelet Volume 10.2 fL (7.4-10.4); Platelet Count 232 10^3/uL (130-400); Red Blood Cell Count 2.66 10^6/uL (4.70-6.10); White Blood Cell Count 18.8 10^3/uL (4.8-10.8)
--- NOTE | 2024-04-27 07:02 | W.PN.HOSP.TC ---
Addendum entered and electronically signed by Mona De MD 04/27/24 13:36:
I saw and evaluated the patient independently. I reviewed the resident�s note and agree with findings and plan as documented by Dr. Peterson.
GENERAL: well developed, well nourished, pale appearing male appears sick but in no apparent distress
HEENT: NC/AT -- no O2 requirements
HEART: irreg irreg but not tachycardic
LUNGS : clear to auscultation bilaterally
ABDOM: soft, nontender, nondistended, + bowel sounds
EXT: no cyanosis, clubbing, or edema
NEUROLOGIC: grossly intact
: valverde cath with scant yellow urine
Toxic metabolic encephalopathy--multiple possibilities--HHS, hyponatremia, uremia/azotemia & infection/sepsis most likely--apprec conventional underwriter--agree with IVF and insulin drip, Q1H accuchecks and Q4H BMP--trend lactates--blood cultures positive for
Klebsiella pneumoniae and urine culture pending--cont zosyn--consider ID consult
Metabolic acidosis with lactic acidosis--likely from uremia/ARISTEO/ sepsis rather than DKA (no ketones in urine, beta hydroxybutyrate neg)--ABG reviewed--IVF per renal--continue valverde cath--apprec renal--valverde changed--cont zosyn-
type 2 DM--doubt DKA, no ketones in urine, beta hydroxybutyrate neg suspect HHS more--hold Tresiba--cont insulin drip--apprec DM RN CASE MGR for assistance with converting back to SC insulin---Farxiga stopped as outpt
ARISTEO with hyperkalemia on CKD stage 3B--with hyperkalemia, acidosis--consider need for dialysis---apprec renal
hyponatremia--sodium 118 on admission, now up to 129--with blood sugar 700 on admission, likely pseudohyponatremia and corrected sodium was 129--follow BMP--apprec renal
anemia --likely of chronic disease--HGB 7.5--would check iron, TIBC, %SAT, ferritin, B12 and folate for completeness--HGB did drop with hydration and pt received 1 unit of pRBCs
elevated LFTs--no abdominal pain--likely due to sepsis, infection--labs now much improved
New onset Atrial fibrillation--no history--in addition, 1st EKG in ED no afib, 2nd showed afib--rate controlled--apprec cards
Neurogenic bladder with chronic valverde catheter--changed in ED--consider urology consult--cont finasteride, tamsulosin
essential HTN -- cont meds as able--losartan stopped due to increased potassium
HLD--hold atorvastatin
CAD s/p stent in place--cont Prasugrel
Code status -- DNR
DVT prophylaxis--SC Heparin
Original Note:
Today's Communication/Plan
-
continue to monitor periodic bmp and accucheck
nephro, pulm, cardio following
Assessment / Plan
Assessment / Plan
83-year-old male with known past medical history of essential hypertension currently on multiple drugs, insulin-dependent diabetes, neurogenic/atonic bladder with chronic Valverde catheter, coronary artery disease/HI 3 years ago s/p cardiac stenting
and currently on prasugrel and CKD 3B presented with his due to confusion and lethargy for few days.
# Toxic encephalopathy likely due to DKA(less likely) vs HHS versus hyponatremia vs azotemia vs infection
-Continue insulin drip
-Continue na based IV fluids per nephro
-Monitor glucose every hour, BMP every 4 hours
-Blood culture; gram-negative bacilli
-leukocytosis 18.8, afebrile
-Continue IV Zosyn
-Repeat BC today
# Metabolic acidosis with lactic acidosis
-Anion gap 17 on admission; 14 today
-Continue insulin drip until the gap close
-Continue NSS per nephro
# ARISTEO on CKD 3B with hyperkalemia
-Continue IV fluids
-Nephro following
-Hyperkalemia mgmt withn lokelma per nephro
# Atrial fibrillation(new onset)
-Recent EKG normal sinus rhythm
-Rate controlled at this time
- [id number] score is 5
- Cardiology input appreciated
- hold off OAC per cardio
# Type 2 diabetes melitis with hyperglycemia
-Continue insulin drip
-Accu-Chek every 1 hour
-Hold home Tresiba
-Consult DM RN CASE MGR persistent converting back to SC insulin
-Farxiga stopped 1 month ago due to CKD
# hyponatremia
-Likely pseudo hyponatremia in setting of high blood sugar
-Trending upwards
# Chronic anemia
-Continue monitoring
-Hb dropped below 7 likely likely due to IV fluids
- received 1 bag prbc on 04/26. hb 8.0 today
# Neurogenic bladder
-Continue Valverde catheter
-Nephro following
# Essential hypertension
-Continue amlodipine 10mg and carvedilol 12.5 mg
- on tele
# Hyperlipidemia
-Hold atorvastatin
# CAD
-S/p stent
-Continue prasugrel
Code: DNR
DVT prophylaxis: Heparin SC
Anticipated Discharge: > 48 hours
Subjective/Interval History
-
Date of Service: April 27, 2024
Interval history: No new complain
Objective Data
-
Labs:
Laboratory Results
04/26/24 04/26/24 04/26/24
16:00 21:28 22:09
WBC
Hgb 6.9 L*
Hct 20.3 L*
Plt Count
Sodium Cancelled 127 L
Potassium Cancelled 5.1
Chloride Cancelled 102
Carbon Dioxide Cancelled 12 L*
BUN Cancelled 103 H*
Creatinine Cancelled 5.4 H*
Glucose Cancelled 379 H 352 H
Calcium Cancelled 6.9 L*
Total Bilirubin
AST
ALT
Alkaline Phosphatase
04/27/24 04/27/24 04/27/24
04:34 04:34 04:34
WBC
Hgb
Hct
Plt Count
Sodium Cancelled 131 L
Potassium Cancelled 5.8 H
Chloride Cancelled
Carbon Dioxide
BUN
Creatinine
Glucose
Calcium
Total Bilirubin
AST
ALT
Alkaline Phosphatase
04/27/24 04/27/24 04/27/24
04:34 04:34 04:34
WBC
Hgb
Hct
Plt Count
Sodium
Potassium
Chloride 101
Carbon Dioxide Cancelled 13 L*
BUN Cancelled 109 H*
Creatinine Cancelled
Glucose
Calcium
Total Bilirubin
AST
ALT
Alkaline Phosphatase
04/27/24 04/27/24 04/27/24
04:34 04:34 04:34
WBC
Hgb
Hct
Plt Count
Sodium
Potassium
Chloride
Carbon Dioxide
BUN
Creatinine 5.9 H*
Glucose Cancelled 99
Calcium Cancelled 8.0 L
Total Bilirubin
AST
ALT
Alkaline Phosphatase
04/27/24 04/27/24 04/27/24
06:00 06:06 08:00
WBC 18.8 H
Hgb 7.9 L
Hct 22.3 L
Plt Count 232 D
Sodium Cancelled Cancelled
Potassium Cancelled
Chloride Cancelled
Carbon Dioxide Cancelled
BUN Cancelled
Creatinine Cancelled
Glucose Cancelled
Calcium Cancelled
Total Bilirubin Cancelled
AST Cancelled
ALT Cancelled
Alkaline Phosphatase Cancelled
04/27/24 04/27/24 04/27/24
08:00 08:00 08:00
WBC
Hgb
Hct
Plt Count
Sodium Pending
Potassium Cancelled Pending
Chloride Cancelled Pending
Carbon Dioxide Cancelled
BUN
Creatinine
Glucose
Calcium
Total Bilirubin
AST
ALT
Alkaline Phosphatase
04/27/24 04/27/24 04/27/24
08:00 08:00 08:00
WBC
Hgb
Hct
Plt Count
Sodium
Potassium
Chloride
Carbon Dioxide Pending
BUN Cancelled Pending
Creatinine Cancelled Pending
Glucose Cancelled
Calcium
Total Bilirubin
AST
ALT
Alkaline Phosphatase
04/27/24 04/27/24 04/27/24
08:00 08:00 12:00
WBC
Hgb
Hct
Plt Count
Sodium Pending
Potassium Pending
Chloride Pending
Carbon Dioxide Pending
BUN Pending
Creatinine Pending
Glucose Pending Pending
Calcium Cancelled Pending Pending
Total Bilirubin Pending
AST Pending
ALT Pending
Alkaline Phosphatase Pending
04/27/24
16:00
WBC
Hgb
Hct
Plt Count
Sodium Pending
Potassium Pending
Chloride Pending
Carbon Dioxide Pending
BUN Pending
Creatinine Pending
Glucose Pending
Calcium Pending
Total Bilirubin
AST
ALT
Alkaline Phosphatase
Vital Signs:
Vital Signs
Temp Pulse Resp BP Pulse Ox
97.9 F 81 18 116/53 95
04/27/24 05:36 04/27/24 06:00 04/27/24 06:00 04/27/24 06:00 04/27/24 05:36
I&O
04/26/24 04/27/24 04/28/24
06:59 06:59 06:59
Intake Total 1374.5 / 1374.5
Output Total 190 / 190
Balance 1184.5 / 1184.5
Review of Systems
-
History Source: Patient
Constitutional: Reports No Symptoms
Respiratory: Reports No Symptoms
Cardiac: Reports No Symptoms
Abdomen/GI: Reports No Symptoms
Musculoskeletal: Reports No Symptoms
Physical Exam
-
General: No Apparent Distress and Appears Chronically Ill
Respiratory: Clear to Auscultation
Cardiac: Regular Rhythm and S1/S2
GI: Soft, Nontender and Nondistended
Skin: Warm and Dry
Neuro: Awake, Alert and Oriented
Psych: Calm
Data Reviewed
-
Labs: Labs Reviewed by me, Discussed with Physician and Discussed with Patient
[2024-04-27 07:15] LABS: Glucose - Point of Care 109 mg/dl (70-99)
--- NOTE | 2024-04-27 07:15 | PTCARENOTE ---
report received. pt aaox3 w/ confused conversation at times. afib w/ pauses. vss. fluids changed to d5w w/ 50meq @125ml/hr. insulin gtt remains. at bedside. will monitor.
--- NOTE | 2024-04-27 07:44 | CON.INTV ---
Consultation
Consultation Request
Date/Time Consultation Requested: 04/27/2024-7 AM
Date/Time Consultation Performed: 04/27/2024-7:30 AM
Requesting Provider: Hospitalist
Performing Provider: Dr. Junior
Reason for Consultation: Critical care management
Medical History
-
Chief Complaint: Mental status changes
History of Present Illness:
83-year-old male with history of hypertension, CAD, diabetes, hyperlipidemia, chronic kidney disease who was recently in the hospital with a UTI treated with antibiotics and Rosenthal catheter was placed for persistent retention presented with
confusion, new onset atrial fibrillation, and hyperglycemia-instrument repair specialist consulted for DKA/new onset atrial fibrillation/critical care management 04/27/2024. The patient was agitated overnight and needed to be placed in soft restraints. The patient
is disoriented but [place] this morning. He denies any shortness of breath at rest, chest pain, productive cough, chest congestion, abdominal pain, nausea, or focal weakness.
Past Medical History
Past Medical History: None (Hypertension. Hyperlipidemia. CAD/stent. Wdhbjyro-axypskg-lszxbllvo. Neurogenic/atonic bladder with chronic Rosenthal catheter. Chronic kidney disease stage IIIb.)
Social History
Tobacco: Non-smoker
Alcohol: None
Drug: None
Personal:
Living: With Family
Occupational Exposures: No known asbestos exposure
Environmental Exposures: No known tuberculosis exposure
Family History
Family History: Reviewed & Not Pertinent
Allergies / Home Medications
Allergies
Allergy/AdvReac Type Severity Reaction Status Date / Time
clopidogrel [From Plavix] Allergy Unknown Verified 03/21/24 10:20
Home Medications
�Medication �Instructions �Recorded �Confirmed �Last Taken �Type
amlodipine 5 mg tablet 10 mg PO DAILY 03/08/24 04/26/24 04/25/24 History
tamsulosin 0.4 mg capsule 0.4 mg PO QPM 03/08/24 04/26/24 04/25/24 History
atorvastatin 80 mg tablet 80 mg PO QPM 03/16/24 04/26/24 04/25/24 History
chromium picolinate 500 mcg capsule 500 mcg PO DAILY 03/16/24 04/26/24 04/25/24 History
insulin degludec 100 unit/mL 10 unit SC DAILY 03/16/24 04/26/24 04/26/24 History
subcutaneous solution (Tresiba
U-100 Insulin)
prasugrel 5 mg tablet 5 mg PO DAILY 03/16/24 04/26/24 04/25/24 History
red yeast rice 600 mg capsule 1,200 mg PO DAILY 03/16/24 04/26/24 04/25/24 History
vitamins A,C,S-otwo-zdmdgf 2,148 1 tab PO BID 03/16/24 04/26/24 04/25/24 History
mcg-113 mg-45 mg-17.4 mg tablet
(PreserVision AREDS)
carvedilol 12.5 mg tablet (Coreg) 12.5 mg PO BID 03/21/24 04/26/24 04/25/24 History
milk thistle 175 mg tablet 175 mg PO DAILY 03/21/24 04/26/24 04/25/24 History
therapeutic multivitamin 1 tab PO DAILY 03/21/24 04/26/24 04/25/24 History
finasteride 5 mg tablet 5 mg PO DAILY 04/26/24 04/26/24 04/25/24 History
Review of Systems
-
Unable to Obtain full review of systems at this time due to: Other (Per HPI)
Vitals / Labs / Diagnostic Testing
Vital Signs
Temp Pulse Resp BP Pulse Ox
97.9 F 81 18 116/53 95
04/27/24 05:36 04/27/24 06:00 04/27/24 06:00 04/27/24 06:00 04/27/24 05:36
Laboratory Results
04/26/24
18:40
pH 7.29 L
pCO2 27 L
pO2 98
HCO3 13.0 L*
O2 Delivery Level
Microbiology
04/26/24 15:02 Blood/Venous Blood Culture - Preliminary
Positive culture in progress
04/26/24 15:02 Blood/Venous Gram Stain - Preliminary
04/26/24 19:21 Blood/Venous Blood Culture - Preliminary
Positive culture in progress
04/26/24 19:21 Blood/Venous Gram Stain - Preliminary
Diagnostic Testing:
Physical Exam
-
Exam:
Well-nourished and well-developed in no apparent distress
HEENT-atraumatic, normocephalic
Neck-supple, no JVD, no bruit
Heart-regular rate and rhythm-no murmurs, rubs or gallops
Chest with diminished breath sounds, rare crackles but no wheezes
Abdomen-soft, nontender, nondistended, no hepatosplenomegaly
Extremities-no cyanosis, clubbing, edema and good peripheral pulses
Integument-intact, no rashes, lesions or ecchymosis
Neurologically alert but disoriented, nonfocal
Assessment
-
83-year-old male with history of hypertension, CAD, diabetes, hyperlipidemia, chronic kidney disease who was recently in the hospital with a UTI treated with antibiotics and Rosenthal catheter was placed for persistent retention presented with
confusion, new onset atrial fibrillation, and hyperglycemia-instrument repair specialist consulted for DKA/new onset atrial fibrillation/critical care management 04/27/2024.
Toxic metabolic encephalopathy
DKA
Metabolic acidosis
Lactic acidosis
Bacteremia-Klebsiella pneumonia
ARISTEO
Hyperkalemia
Hypocalcemia
Hyponatremia-serum sodium 130
Pypczv-ijoujpdqkd-cxajbfjpbb 7.9
Leukocytosis-WBC 18.8
Transaminitis
New onset atrial fibrillation
Hypoalbuminemia
Conditions present prior to admission:
Hypertension.
Hyperlipidemia.
CAD/stent.
Knbrwgaw-eorrymo-fmrhkgtym.
Neurogenic/atonic bladder with chronic Rosenthal catheter.
Chronic kidney disease stage IIIb.
Plan
Patient will be admitted to medical intensive care unit for close monitoring
Supplemental oxygen as needed
Incentive spirometry if able
Nebulizers if needed-currently not bronchospastic
Aspiration precautions
Monitor blood sugar
Monitor anion gap
Insulin drip
Check A1c if not done in the last 3 months
Diabetic nurse practitioner consultation placed
Intravenous fluid resuscitation
Monitor potassium closely and replace when needed
Nephrology consultation noted-correspondence reviewed
Cultures reviewed
Bacteremia noted-blood cultures positive for Klebsiella pneumoniae
Urine culture pending
Sputum culture-unable to produce-chest x-ray clear
Empiric antibiotics-Zosyn initiated-adjust according to cultures
DVT prophylaxis
Early nutrition
Early mobilization
Critical care statement: A total of 55 minutes of critical care time was provided for this patient today. This includes management of unstable vital signs, insulin drip management, evaluation of the patient at bedside, reviewing the patient's
pertinent medical records including radiographs, insulin drip management, pressor management, sepsis management, microbiology, laboratory evaluations, and discussion with primary team, consultants, charge nurse, and critical care nursing.
Diagnostic data:
Chest x-ray 04/26/2024-no focal consolidations, pleural effusions or pneumothorax
Data Reviewed
-
EKG: Report reviewed by me
Radiology: Report reviewed by me
CT Scan: Report reviewed by me
Ultrasound: Report reviewed by me
Medical Tests (Nuc Med, Echo etc): Report reviewed by me
Labs: Labs reviewed by me
Old Records: Reviewed
Critical Care Time (in minutes): 55
[2024-04-27] MEDS: PROSCAR 5 MG PO (08:04)
[2024-04-27] MEDS: COREG 12.5 MG PO ×2 (08:04→19:36)
[2024-04-27] MEDS: NORVASC 10 MG PO (08:04)
[2024-04-27] MEDS: HEPARIN 5000 UNITS SC ×2 (08:04→17:03)
[2024-04-27] MEDS: EFFIENT 5 MG PO (08:04)
[2024-04-27] MEDS: OCUVITE SOFTGEL 1 CAP PO ×2 (08:04→19:36)
[2024-04-27 08:18] LABS: Hematocrit 23.1 % (39.0-52.0)
[2024-04-27 08:20] LABS: Glucose - Point of Care 111 mg/dl (70-99)
[2024-04-27 08:30] LABS: ALT (SGPT) 45 U/L (0-50); AST (SGOT) 46 U/L (17-59); Albumin 1.9 g/dl (3.5-5.0); Alkaline Phosphatase 234 U/L (38-126); Blood Urea Nitrogen 113 mg/dl (9-20); Calcium 7.6 mg/dl (8.4-10.2); Carbon Dioxide 13 mmol/L (22-30); Chloride 103 mmol/L (98-107); Estimated Creatinine Clearance 9 ml/min; Glucose 85 mg/dl (70-99); Potassium 5.5 mmol/L (3.5-5.1); Sodium 130 mmol/L (135-145); Total Bilirubin 0.9 mg/dl (0.2-1.3); Total Protein 4.5 g/dl (6.3-8.2); eGFR 8.75
--- NOTE | 2024-04-27 08:42 | W.PN.NEPH.PH ---
Today's Communication / Plan
-
treat K
Assessment/Plan
-
Assessment
Hypertension
ARISTEO
DKA
Metabolic acidosis
Lactic acidosis
Hyperkalemia
Hyponatremia
azotemia
Neurogenic bladder
Coronary artery disease
E faecalis urosepsis
Plan
Treat potassium medically
Insulin drip for DKA
change to bicarb based IVF
Serial BMP
Maintain Rosenthal
ARISTEO is likely due to combination of neurogenic bladder in setting of severe DKA
hopefully he will begin to turn around. If he has persistent elevated in Cr indicating ATN he may need dialysis
critical care time 31 minutes
-
-
Date of Service: April 27, 2024
CC / HPI / ROS
-
Chief Complaint:
ARISTEO
History of Present Illness:
ARISTEO/Cr down to 6
K high 5.5
DKA improving on insulin gtt
BP improving with IVF
acidosis severe persistent
Review of Systems:
no CP/SOB
confused
Labs
-
Labs:
WBC 18.8 10^3/uL (4.8-10.8) H 04/27/24 06:06
RBC 2.66 10^6/uL (4.70-6.10) L 04/27/24 06:06
Plt Count 232 10^3/uL (130-400) D 04/27/24 06:06
eGFR Cancelled 04/27/24 08:00
Albumin 1.9 g/dl (3.5-5.0) L 04/27/24 07:52
Physical Exam
-
Vital Signs:
Vital Signs
Temp Pulse Resp BP Pulse Ox
97.9 F 81 18 116/53 95
04/27/24 08:00 04/27/24 06:00 04/27/24 06:00 04/27/24 06:00 04/27/24 05:36
Cardiovascular:: Regular rate and rhythm
Respiratory:: Bilateral: Coarse
Lung Excursion:: Normal
Abdomen:: Nontender and Soft
Bowel Sounds:: Normal
Extremity Edema:: None: Bilateral:
Rosenthal Catheter: Yes
[2024-04-27 09:27] LABS: Glucose - Point of Care 109 mg/dl (70-99)
--- NOTE | 2024-04-27 09:41 | CON.CAR ---
Addendum entered and electronically signed by He Fernandes MD 04/27/24 16:54:
83 yo male with PMH of CAD, LAD stent 2021, mild/mod , CKD3b. Admitted with severe lab abnormalities including Hgb 6.9, acute renal failure with hyperkalemia, glu >750. We are consulted for new A fib. He is confused on exam. Exam with RRR, II/
systolic murmur at RUSB, trace edema. Tele and EKG review: paroxysmal A fib, sinus, PAC's, Wenckebach. Echo 04/27: EF 55-60%, mild .
Paroxysmal Afib. Back in sinus. Continue coreg. CHADS2-VASC = 5. Eventual single agent eliquis for his A fib and CAD, but not ready for OAC yet, as anemia need to be investigated.
Per nephrology communication, he will likely need HD this admission.
Original Note:
Consultation
Consultation Request
Date/Time Consultation Requested: 04/26/241918
Date/Time Consultation Performed: 04/27/24 0940
Requesting Provider: Dr. Peterson
Performing Provider: Cynthia DIAZ for Dr. Fernandes
Reason for Consultation: AFIB
Medical History
-
Chief Complaint: change in MS
History of Present Illness:
83 y/o male (Surveillance System Monitor Dr. 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 He has been
having weakness and lethargy. Per ER documentation in chart, he went to get an echo and passed out and forestry aid told him to come to the hospital. He is seen to have multiple, severe lab abnormalities including hgb 6.9, NA+ 118, potassium 7.0,
creatinine 6.7, glucose 757, WBC 19.4. Regarding ARISTEO on CKD, nephrology on the case- he may need dialysis, but currently treating medically. He is getting fluids and insulin drip. Otherwise, he is felt to have a UTI with culture pending and is
getting antibiotics, valverde changed out. We are consulted since he was seen to have episode of rate-controlled AFIB on monitor and EKG, which is new diagnosis. HPI obtained from chart as patient has some confusion.
Past Medical History
Past Medical History: CAD, HTN, NIDDM (on insulin), Renal Failure, Valvular Disease and Other (as above)
Social History
Personal:
Living: With Family
Family History
Family History: Reviewed & Not Pertinent
Allergies / Home Medications
Allergy/AdvReac Type Severity Reaction Status Date / Time
clopidogrel [From Plavix] Allergy Unknown Verified 03/21/24 10:20
�Medication �Instructions �Recorded �Confirmed �Type
amlodipine 5 mg tablet 10 mg PO DAILY 03/08/24 04/26/24 History
tamsulosin 0.4 mg capsule 0.4 mg PO QPM 03/08/24 04/26/24 History
atorvastatin 80 mg tablet 80 mg PO QPM 03/16/24 04/26/24 History
chromium picolinate 500 mcg capsule 500 mcg PO DAILY 03/16/24 04/26/24 History
insulin degludec 100 unit/mL 10 unit SC DAILY 03/16/24 04/26/24 History
subcutaneous solution (Tresiba
U-100 Insulin)
prasugrel 5 mg tablet 5 mg PO DAILY 03/16/24 04/26/24 History
red yeast rice 600 mg capsule 1,200 mg PO DAILY 03/16/24 04/26/24 History
vitamins A,C,B-xakc-zayirs 2,148 1 tab PO BID 03/16/24 04/26/24 History
mcg-113 mg-45 mg-17.4 mg tablet
(PreserVision AREDS)
carvedilol 12.5 mg tablet (Coreg) 12.5 mg PO BID 03/21/24 04/26/24 History
milk thistle 175 mg tablet 175 mg PO DAILY 03/21/24 04/26/24 History
therapeutic multivitamin 1 tab PO DAILY 03/21/24 04/26/24 History
finasteride 5 mg tablet 5 mg PO DAILY 04/26/24 04/26/24 History
Review of Systems
-
History Source: Other (chart)
Constitutional: Other (weakness, lethargy, as above in HPI)
Physical Exam
Vital Signs
Temp Pulse Resp BP Pulse Ox
97.9 F 82 22 122/48 93
04/27/24 08:00 04/27/24 09:30 04/27/24 09:30 04/27/24 09:01 04/27/24 09:30
Physical Exam
General: Well Developed, Well Nourished and No Apparent Distress
HEENT: Normocephalic and Anicteric
Respiratory: Clear
Cardiac: Irregular Rhythm
Skin: Warm and Dry
Neuro: Awake and Other (confused)
Psych: Calm
Impression / Plan
-
ARISTEO on CKD: severe
-nephrology is on the case
-may need HD
Hyperkalemia: severe
-treatment underway
Hyponatremia: severe
-improving
Possible UTI:
-cultures pending, on abx
-valverde changed out per chart
DM2: uncontrolled
-on insulin gtt, requires intensive monitoring
AFIB: new diagnosis, paroxysmal
-in setting of acute illness
-back in SR, was rate-controlled in AFIB. 1st degree AVB on EKG in Sinus- chronic.
-continue Coreg- follow telemetry
-[id number] score is 5 for age, HTN, CAD, DM. Eventual OAC, but currently w/u for anemia initiated with hgb as low as 6.9, and may need HD access- will hold off for now.
-check echo and thyroid
CAD with hx stenting (2021):
-seems to be stable
-continue prasugrel
-allergic to Plavix and Brilinta per OP chart
Aortic stenosis:
-mild in past, updating echo
HTN:
-continue meds and monitor
Data Reviewed
-
EKG: Tracing Personally Visualized and interpreted (AFIB 70 BPM)
Radiology: Report Reviewed by me (CXR 04/26/24: No acute cardiopulmonary process.)
Medical Tests (Nuc Med, Echo etc): Report Reviewed by me (echo 05/25/23: EF 55-60%, mild )
Labs: Labs Reviewed by me
[2024-04-27 10:23] LABS: Glucose - Point of Care 118 mg/dl (70-99)
[2024-04-27] MEDS: LOKELMA 10 GRAM PO (10:37)
[2024-04-27] MEDS: SODIUM BICARBONATE 50 MEQ IV (10:40)
[2024-04-27] MEDS: NSS IV (10:45)
--- NOTE | 2024-04-27 10:46 | PN.DE.MGMTRT ---
Insulin Management
- -
04/27/2024 Diabetes Management Consult
Patient brought to ED with change of mental status, found to be in DKA. PMH CAD, HTN, diabetes, ckd 3b, UTI 1 month ago. Prior to admission was taking tresiba 10 units @ hs. A1C 03/22/24 8.5%. CR today .6, eGFR 8.7
Patient is awake and alert but confused, not reliable to discuss diabetes management. No family at bedside.
Patient is currently on insulin infusion, initially GAP was 17, @ 7:52 this AM 14. Insulin infusion was as high as 7 units per hour, now @ .5 glucose range 85 to 118. Will continue insulin infusion at this time, for BMP @ 12 noon. Will follow for
readiness to transition to subcutaneous insulin.
Discussed with patients nurse.
Diabetes History
- -
Type of Diabetes: 2 requiring insulin
Pre-Admission Diabetes Regimen
04/26/24 04/26/24 04/26/24
13:39 16:00 17:43
Creatinine 6.7 H* Cancelled 5.8 H*
04/26/24 04/27/24 04/27/24
22:09 04:34 04:34
Creatinine 5.4 H* Cancelled 5.9 H*
04/27/24 04/27/24 04/27/24
06:00 07:52 08:00
Creatinine Cancelled 6.0 H* Cancelled
Insulin Pump Settings
IP Diabetes Regimen
04/26/24 04/26/24 04/26/24
13:39 14:40 16:00
Glucose 757 H* Cancelled
POC Glucose > 600 H*
04/26/24 04/26/24 04/26/24
17:05 17:43 18:14
Glucose 532 H*
POC Glucose 556 H* 514 H*
04/26/24 04/26/24 04/26/24
18:28 21:14 21:28
Glucose 496 H* 379 H
POC Glucose 477 H*
04/26/24 04/26/24 04/27/24
22:09 23:02 01:07
Glucose 352 H
POC Glucose 332 H 119 H
04/27/24 04/27/24 04/27/24
02:03 03:55 04:34
Glucose Cancelled
POC Glucose 100 H 108 H
04/27/24 04/27/24 04/27/24
04:34 05:12 06:00
Glucose 99 Cancelled
POC Glucose 123 H
04/27/24 04/27/24 04/27/24
06:01 07:02 07:52
Glucose 85
POC Glucose 117 H 109 H
04/27/24 04/27/24 04/27/24
08:00 08:08 09:15
Glucose Cancelled
POC Glucose 111 H 109 H
04/27/24
10:11
Glucose
POC Glucose 118 H
Patient Education
[2024-04-27 11:22] LABS: Glucose - Point of Care 118 mg/dl (70-99)
[2024-04-27] MEDS: SODIUM BICARBONATE 1150 MEQ IV ×3 (11:33→22:35)
[2024-04-27 12:08] LABS: Glucose - Point of Care 127 mg/dl (70-99)
[2024-04-27 12:45] LABS: Hematocrit 22.1 % (39.0-52.0); Hemoglobin 7.8 g/dL (13.0-18.0)
[2024-04-27 12:47] LABS: TSH Reflex To Free T4 0.84 uIU/ml (0.47-4.68)
[2024-04-27 13:13] LABS: Blood Urea Nitrogen 107 mg/dl (9-20); Calcium 7.3 mg/dl (8.4-10.2); Carbon Dioxide 14 mmol/L (22-30); Chloride 100 mmol/L (98-107); Estimated Creatinine Clearance 8 ml/min; Glucose 127 mg/dl (70-99); Potassium 5.3 mmol/L (3.5-5.1); Sodium 129 mmol/L (135-145); eGFR 8.41
[2024-04-27 13:27] LABS: Magnesium 1.8 mg/dl (1.6-2.3)
[2024-04-27 13:47] LABS: Glucose - Point of Care 167 mg/dl (70-99)
[2024-04-27 14:02] LABS: Glycohemoglobin (HgbA1c) 9.6 % (4.0-5.6)
[2024-04-27 14:23] LABS: Iron 35 ug/dl (49-181)
--- NOTE | 2024-04-27 14:24 | CM ---
Patient seen at bedside with physician. Patient more verbal today. Patient plan is for return to SNF vs home with VN. Patient spoke to CM via phone and confirmed prior information. She is most concerned about patient being to weak to walk. She
is in agreement with plan for therapy to assess patient when medically appropriate. Patient for further work up and not medically ready for transfer to next level of care per physician. CM will continue to follow for discharge planning needs.
Plan; home with VN vs SNF; watch for PT/OT assessment for next level of care.
[2024-04-27 14:30] LABS: Percent Saturation 25 % (20-50); Total Iron Binding Capacity 139 ug/dl (261-462)
[2024-04-27 15:14] LABS: Glucose - Point of Care 183 mg/dl (70-99)
--- NOTE | 2024-04-27 15:29 | PTCARENOTE ---
assessment unchanged. spouse remains at bedside. echo obtained. insulin gtt @2units/hr. vss. will monitor.
[2024-04-27 15:30] LABS: Folate 18.2 ng/ml (2.76-20)
[2024-04-27 16:20] LABS: Glucose - Point of Care 221 mg/dl (70-99)
--- NOTE | 2024-04-27 16:39 | W.PN.UPDATE ---
Update Note
Progress Note Update
RTSP, d/w at bedside. Cr rising again, K elevated, acidosis persists. while there is increased UOP, he does not appear to be recovering renal function at this time.
Willl plan to start HD tomorrow unless numbers turn around. She understands and agrees. IRad consult placed.
[2024-04-27 17:23] LABS: Glucose - Point of Care 300 mg/dl (70-99)
[2024-04-27] MEDS: FLOMAX 0.4 MG PO (17:40)
[2024-04-27 18:14] LABS: Glucose - Point of Care 269 mg/dl (70-99)
[2024-04-27 18:15] LABS: Blood Urea Nitrogen 112 mg/dl (9-20); Calcium 7.4 mg/dl (8.4-10.2); Carbon Dioxide 16 mmol/L (22-30); Chloride 99 mmol/L (98-107); Estimated Creatinine Clearance 8 ml/min; Glucose 158 mg/dl (70-99); Potassium 4.9 mmol/L (3.5-5.1); Sodium 130 mmol/L (135-145); eGFR 8.58
--- NOTE | 2024-04-27 19:14 | PTCARENOTE ---
Received pt via handoff. Pt AAOx3 and a little drowsy, able to CALI but w/ generalized weakness throughout. AFib on the monitor, palpable pulses on extremities with +1 edema on lower extremities. 97% on room air, dyspneic on exertion and diminished
throughout w/ nonproductive cough. Hypoactive bowel sounds in all 4Q. Rosenthal catheter in place draining morse, milky urine. Skin intact, slightly diaphoretic. Insulin gtt and fluids running see flowsheet. Call shaffer at bedside.
[2024-04-27 19:17] LABS: Glucose - Point of Care 169 mg/dl (70-99)
[2024-04-27 19:52] LABS: Hematocrit 22.1 % (39.0-52.0); Hemoglobin 7.9 g/dL (13.0-18.0)
[2024-04-27 20:14] LABS: Glucose - Point of Care 174 mg/dl (70-99)
[2024-04-27 21:19] LABS: Glucose - Point of Care 124 mg/dl (70-99)
[2024-04-27 23:19] LABS: Glucose - Point of Care 151 mg/dl (70-99)
[2024-04-28] VITALS (42 sets, daily range): BP systolic 61–152; BP diastolic 46–123; BMI 24.2
--- NOTE | 2024-04-28 | PTCARENOTE ---
All systems reassessed. Hygiene performed. Call shaffer at bedside.
[2024-04-28] MEDS: HEPARIN 5000 UNITS SC ×3 (00:51→17:36)
[2024-04-28] MEDS: ZOSYN 50 IV ×4 (00:51→22:09)
[2024-04-28 01:12] LABS: Glucose - Point of Care 155 mg/dl (70-99)
[2024-04-28] MEDS: NOVOLIN R INSULIN INFUSION 100 IV (01:25)
[2024-04-28 02:14] LABS: Glucose - Point of Care 148 mg/dl (70-99)
[2024-04-28 03:30] LABS: Glucose - Point of Care 157 mg/dl (70-99)
--- NOTE | 2024-04-28 04:00 | PTCARENOTE ---
All systems reassessed. Labs drawn, hygiene performed.
[2024-04-28 04:10] LABS: Hematocrit 21.2 % (39.0-52.0); Hemoglobin 7.5 g/dL (13.0-18.0); Mean Corp Hgb Conc. 35.4 g/dL (33.0-37.0); Mean Corpuscular Hgb 29.2 pg (27.0-31.0); Mean Corpuscular Volume 82.5 fL (80.0-94.0); Mean Platelet Volume 10.6 fL (7.4-10.4); Platelet Count 183 10^3/uL (130-400); Red Blood Cell Count 2.57 10^6/uL (4.70-6.10); Red Cell Dist. Width 15.3 % (11.5-14.5); White Blood Cell Count 18.5 10^3/uL (4.8-10.8)
[2024-04-28 04:20] LABS: INR 1.26; PT 16.3 Sec (11.4-14.6)
[2024-04-28 04:37] LABS: ALT (SGPT) 62 U/L (0-50); AST (SGOT) 106 U/L (17-59); Albumin 1.9 g/dl (3.5-5.0); Alkaline Phosphatase 404 U/L (38-126); Carbon Dioxide 20 mmol/L (22-30); Chloride 95 mmol/L (98-107); Estimated Creatinine Clearance 8 ml/min; Glucose 102 mg/dl (70-99); Magnesium 1.9 mg/dl (1.6-2.3); Potassium 4.9 mmol/L (3.5-5.1); Sodium 130 mmol/L (135-145); Total Bilirubin 0.7 mg/dl (0.2-1.3); Total Protein 4.5 g/dl (6.3-8.2); eGFR 8.25
[2024-04-28 04:57] LABS: Blood Urea Nitrogen 122 mg/dl (9-20)
[2024-04-28 06:24] LABS: Glucose - Point of Care 108 mg/dl (70-99)
[2024-04-28 07:32] LABS: Glucose - Point of Care 120 mg/dl (70-99)
--- NOTE | 2024-04-28 07:33 | W.PN.INTV ---
Today's Communication / Plan
Recommendations
Insulin drip
Norepinephrine as needed
Hemodialysis
Antibiotics
Assessment
-
83-year-old male with history of hypertension, CAD, diabetes, hyperlipidemia, chronic kidney disease who was recently in the hospital with a UTI treated with antibiotics and Rosenthal catheter was placed for persistent retention presented with
confusion, new onset atrial fibrillation, and hyperglycemia-res habilitation assistant consulted for DKA/new onset atrial fibrillation/critical care management 04/27/2024.
Toxic metabolic encephalopathy
DKA versus HHNK
Metabolic acidosis
Lactic acidosis
Bacteremia-Klebsiella pneumonia
ARISTEO
Hyperkalemia
Hypocalcemia
Hyponatremia-serum sodium 130
Femnnh-dllyuagowm-olfnykjffj 7.9
Leukocytosis-WBC 18.8
Transaminitis
New onset atrial fibrillation
Hypoalbuminemia
Conditions present prior to admission:
Hypertension.
Hyperlipidemia.
CAD/stent.
Edwehqyt-swbxzns-aypnuodjp.
Neurogenic/atonic bladder with chronic Rosenthal catheter.
Chronic kidney disease stage IIIb.
Plan
Remains critically ill on insulin drip
Supplemental oxygen as needed
Incentive spirometry encouraged
Nebulizers if needed-currently not bronchospastic
Aspiration precautions
Follow blood sugar
Monitor anion gap-currently 15
Insulin drip per diabetic nurse practitioner
Check A1c if not done in the last 3 months
Diabetic nurse practitioner consultation following-correspondence reviewed
Decrease IV fluids
Monitor potassium closely and replace when needed
Monitor renal function-not improving-serum creatinine 6.3
Nephrology consultation noted-correspondence reviewed
Bicarb per nephrology
Dialysis catheter 04/28/2024
Hemodialysis will be initiated 04/28/2024
Cultures reviewed
Bacteremia noted-blood cultures positive for Klebsiella pneumoniae
Repeat blood cultures pending
Urine culture pending
Sputum culture-unable to produce-chest x-ray clear
Empiric antibiotics-Zosyn initiated-adjust according to cultures
DVT prophylaxis-on heparin
Nutrition
Early mobilization to prevent deconditioning
Critical care statement: A total of 40 minutes of critical care time was provided for this patient today. This includes management of unstable vital signs, insulin drip management, evaluation of the patient at bedside, reviewing the patient's
pertinent medical records including radiographs, insulin drip management, pressor management, sepsis management, microbiology, laboratory evaluations, and discussion with primary team, consultants, charge nurse, and critical care nursing.
Diagnostic data:
Chest x-ray 04/26/2024-no focal consolidations, pleural effusions or pneumothorax
Subjective Dataa
Subjective Data
Date of Service:
Date of Service: April 28, 2024
Chief Complaint: Chuck Tender Follow Up and Pulmonary Follow Up
Subjective:
More oriented, no complaints of shortness of breath, chest pain or abdominal pain
Review of Systems
General: Other (Per HPI)
Objective Data
Data Reviewed
Vital Signs / I&O / Oxygen:
Vital Signs
Temp Pulse Resp BP Pulse Ox
97.8 F 75 20 143/63 92
04/28/24 05:40 04/28/24 07:00 04/28/24 07:00 04/28/24 07:00 04/28/24 07:00
Intake and Output
04/27/24 04/28/24 04/29/24
06:59 06:59 06:59
Intake Total 1374.5 / 1500.0 4009.0 / 4134.5 125.5 / 125.5
Output Total 190 / 190 375 / 375
Balance 1184.5 / 1310.0 3634.0 / 3759.5 125.5 / 125.5
SaO2 92
Physical Exam
General: Respiratory Distress (n) and Comfortable
HEENT: Normocephalic, Anicteric and Moist Mucous Membranes
Cardiovascular: Regular Rhythm
Respiratory: Wheeze (n), Crackles (Rare basilar), Rhonchi (n), Non-Labored Respirations, Accessory Resp Muscle Use (n) and Stridor (n)
GI: Soft, Non Distended and Non Tender
Neurology: Awake, Alert and No Motor Deficits
Skin: Warm, Good Color, Cyanosis (n), Jaundice (n) and Rash (n)
Labs/Micro/Reports
Lab Data
04/28/24 03:16
04/28/24 03:16
Laboratory Results
04/28/24
03:16
PT 16.3 H
INR 1.26
Microbiology
04/26/24 15:02 Blood/Venous Blood Culture - Preliminary
Klebsiella pneumoniae
04/26/24 15:02 Blood/Venous Gram Stain - Preliminary
04/26/24 19:21 Blood/Venous Blood Culture - Preliminary
Positive culture in progress
04/26/24 19:21 Blood/Venous Gram Stain - Preliminary
--- NOTE | 2024-04-28 08:00 | PTCARENOTE ---
Received pt. @ change of shift- assessment per flow sheet. Remains Q1H accuchecks on insulin gtt via L Dl PICC- see flow sheet. Bicarb gtt timed out, clarified with Nephrology, Dr. Champion, and orders received to d/c gtt. Bed alarm active. Call
deena w in reach.
[2024-04-28 08:29] LABS: Glucose - Point of Care 125 mg/dl (70-99)
--- NOTE | 2024-04-28 08:32 | W.PN.HOSP.TC ---
Addendum entered and electronically signed by Mona De MD 04/28/24 13:55:
I saw and evaluated the patient independently. I reviewed the resident�s note and agree with findings and plan as documented by Dr. Peterson.
GENERAL: well developed, well nourished, male appears sick but in no apparent distress
HEENT: NC/AT -- no O2 requirements
HEART: irreg irreg but not tachycardic
LUNGS : clear to auscultation bilaterally
ABDOM: soft, nontender, nondistended, + bowel sounds
EXT: no cyanosis, clubbing, or edema
NEUROLOGIC: grossly intact
: valverde cath with scant yellow urine
Toxic metabolic encephalopathy--multiple possibilities--HHS Resolved, hyponatremia improved, uremia/azotemia & infection/sepsis most likely--apprec provider service representative--agree with IVF and insulin drip, Q1H accuchecks and Q4H BMP--trend lactates--blood
cultures positive for Klebsiella pneumoniae and urine culture pending--cont zosyn--consider ID consult
Metabolic acidosis with lactic acidosis--likely from uremia/ARISTEO/ sepsis, do NOT believe DKA (no ketones in urine, beta hydroxybutyrate neg)--ABG reviewed--IVF per renal--continue valverde cath--apprec renal--valverde changed--cont zosyn-
type 2 DM--do not believe DKA, no ketones in urine, beta hydroxybutyrate neg suspect HHS more--hold Tresiba-- insulin drip to SC insulin--apprec DM GOLD MINER BLASTING for assistance --Farxiga stopped as outpt
ARISTEO with hyperkalemia on CKD stage 3B--with hyperkalemia, acidosis--will be starting HD---apprec renal
hyponatremia--sodium 118 on admission, now up to 129--with blood sugar 700 on admission did have pseudohyponatremia and corrected sodium was 129--follow BMP--apprec renal
hypocalcemia -- corrects to normal
anemia --likely of chronic disease--HGB 7.5-- iron, TIBC, %SAT, ferritin consistent with chronic disease--folate WNL, TSH WNL--HGB did drop with hydration and pt received 1 unit of pRBCs
elevated LFTs--no abdominal pain--likely due to sepsis, infection--labs were much improved and now increased
New onset Atrial fibrillation--no history--in addition, 1st EKG in ED no afib, 2nd showed afib--rate controlled--apprec cards--eventual transition to eliquis
Neurogenic bladder with chronic valverde catheter--changed in ED--consider urology consult--cont finasteride, tamsulosin
essential HTN -- cont meds as able--losartan stopped due to increased potassium
HLD--hold atorvastatin
CAD s/p stent in place--cont Prasugrel
Code status -- DNR
DVT prophylaxis--SC Heparin
Total Critical Care Time 31 minutes. I was immediately available to the patient and staff. I personally examined, reviewed labs, diagnostic images/reports, interpretations, treatment plans, discussed patient care with other providers and family
or caregivers (if patient is unable to make decisions), entered orders as appropriate and documented the medical record.
Original Note:
Today's Communication/Plan
-
Nephro considering HD today
cont insulin drip, abx
Assessment / Plan
Assessment / Plan
83-year-old male with known past medical history of essential hypertension currently on multiple drugs, insulin-dependent diabetes, neurogenic/atonic bladder with chronic Valverde catheter, coronary artery disease/LA 3 years ago s/p cardiac stenting
and currently on prasugrel and CKD 3B presented with his due to confusion and lethargy for few days.
# Toxic metabolic encephalopathy likely due to DKA(less likely) vs HHS versus hyponatremia vs azotemia vs infection
-Continue insulin drip
-Continue na based IV fluids per nephro
-Blood culture; Klebsiella pneumoniae
-leukocytosis 18.8, afebrile
-Continue IV Zosyn
-Repeat BC pending
# Metabolic acidosis with lactic acidosis
-Likely from ARISTEO/uremia/
-Anion gap 17 on admission; 15 today
-Continue insulin drip until the gap close
# ARISTEO on CKD 3B with hyperkalemia
-Continue IV fluids
-BUN and creatinine rising
-Nephro following; considering dialysis today
-Hyperkalemia resolved after Lokelma
# Atrial fibrillation(new onset)
-Recent EKG normal sinus rhythm
-Echo unremarkable
-Rate controlled at this time
- [id number] score is 5
- Cardiology input appreciated
- hold off OAC per cardio
# Type 2 diabetes melitis with hyperglycemia
-Continue insulin drip
-Accu-Chek every 1 hour
-Hold home Tresiba
-DM GOLD MINER BLASTING following for assistance converting back to SC insulin
-Farxiga stopped 1 month ago due to CKD
# hyponatremia
-Likely pseudo hyponatremia in setting of high blood sugar
-Trending upwards
# Chronic anemia
-Continue monitoring
-Hb dropped below 7 likely likely due to IV fluids
- received 1 bag prbc on 04/26. hb 7.5 today
# Neurogenic bladder
-Continue Valverde catheter
-Nephro following
# Essential hypertension
-Continue amlodipine 10mg and carvedilol 12.5 mg
- on tele
# Hyperlipidemia
-Hold atorvastatin
# CAD
-S/p stent
-Continue prasugrel
Code: DNR
DVT prophylaxis: Heparin SC
Anticipated Discharge: 24 - 48 hours
Subjective/Interval History
-
Date of Service: April 28, 2024
Interval events: No new complaints
Objective Data
-
Labs:
Laboratory Results
04/28/24 04/28/24 04/28/24
03:16 03:16 03:16
WBC 18.5 H
Hgb Cancelled 7.5 L
Hct Cancelled 21.2 L
Plt Count 183 D
PT 16.3 H
INR 1.26
Sodium 130 L
Potassium 4.9
Chloride 95 L
Carbon Dioxide 20 L
BUN 122 H*
Creatinine 6.3 H*
Glucose 102 H
Calcium 7.0 L
Total Bilirubin 0.7
AST 106 H
ALT 62 H
Alkaline Phosphatase 404 H
Vital Signs:
Vital Signs
Temp Pulse Resp BP Pulse Ox
96.9 F L 72 21 135/52 92
04/28/24 07:33 04/28/24 07:30 04/28/24 07:30 04/28/24 08:00 04/28/24 07:30
I&O
04/27/24 04/28/24 04/29/24
06:59 06:59 06:59
Intake Total 1374.5 / 1500.0 4009.0 / 4134.5 251.5 / 251.5
Output Total 190 / 190 375 / 375
Balance 1184.5 / 1310.0 3634.0 / 3759.5 251.5 / 251.5
Review of Systems
-
History Source: Patient
Constitutional: Reports No Symptoms
Respiratory: Reports No Symptoms
Cardiac: Reports No Symptoms
Abdomen/GI: Reports No Symptoms
Musculoskeletal: Reports No Symptoms
Physical Exam
-
General: No Apparent Distress and Appears Chronically Ill
Respiratory: Clear to Auscultation
Cardiac: Regular Rhythm and S1/S2
GI: Soft, Nontender and Nondistended
Genito-urinary: Other (Valverde in place)
Skin: Warm and Dry
Neuro: Awake, Alert and Oriented
Psych: Calm
Data Reviewed
-
Labs: Labs Reviewed by me, Discussed with Physician and Discussed with Patient
[2024-04-28] MEDS: COREG 12.5 MG PO ×2 (09:24→19:57)
[2024-04-28] MEDS: NORVASC 10 MG PO (09:24)
[2024-04-28] MEDS: OCUVITE SOFTGEL 1 CAP PO ×2 (09:24→19:57)
[2024-04-28] MEDS: PROSCAR 5 MG PO (09:25)
[2024-04-28 09:29] LABS: Glucose - Point of Care 123 mg/dl (70-99)
--- NOTE | 2024-04-28 09:31 | PN.DE.MGMTRT ---
Insulin Management
- -
04/28/2024 Diabetes Management Consult Follow up
Patient brought to ED with change of mental status, found to be in DKA. PMH CAD, HTN, diabetes, ckd 3b, UTI 1 month ago. Prior to admission was taking tresiba 10 units @ hs. A1C 03/22/24 8.5%. CR today .6, eGFR 8.7 A1C 9.6%.
Patient is awake and alert but confused, not reliable to discuss diabetes management but patient states he does take novolog AC using a ss.
Patient is currently on insulin infusion, initially GAP was 15. Insulin infusion was as high as 7 units per hour, now @ 1 glucose range 102 to 269. Patient was ordered diet. As GAP is still open will stop diet. Will continue insulin infusion at
this time, for BMP @ 12 noon, 4 and 8pm. If GAP closed will start lantus 15 units @ hs with novolog 4 units AC and low corrective. Will follow for readiness to transition to subcutaneous insulin.
Discussed with patients nurse.
Diabetes History
- -
Type of Diabetes: 2 requiring insulin
Pre-Admission Diabetes Regimen
04/27/24 04/27/24 04/28/24
12:34 17:46 03:16
Creatinine 6.2 H* 6.1 H* 6.3 H*
Lab Results
Hemoglobin A1c 9.6 % (4.0-5.6) H 04/27/24 06:06
Insulin Pump Settings
IP Diabetes Regimen
04/27/24 04/27/24 04/27/24
10:11 11:10 11:58
Glucose
POC Glucose 118 H 118 H 127 H
04/27/24 04/27/24 04/27/24
12:34 13:35 15:03
Glucose 127 H
POC Glucose 167 H 183 H
04/27/24 04/27/24 04/27/24
16:09 17:03 17:46
Glucose 158 H
POC Glucose 221 H 300 H
04/27/24 04/27/24 04/27/24
18:03 19:06 19:57
Glucose
POC Glucose 269 H 169 H 174 H
04/27/24 04/27/24 04/28/24
21:06 23:07 01:01
Glucose
POC Glucose 124 H 151 H 155 H
04/28/24 04/28/24 04/28/24
02:03 03:16 03:19
Glucose 102 H
POC Glucose 148 H 157 H
04/28/24 04/28/24 04/28/24
06:13 07:20 08:17
Glucose
POC Glucose 108 H 120 H 125 H
04/28/24
09:18
Glucose
POC Glucose 123 H
Meal type: Dinner
Meal type: Lunch
Amount consumed: 80%
Amount consumed: 100%
Patient Education
--- NOTE | 2024-04-28 10:09 | W.PN.CD ---
Today's Communication / Plan
-
continue coreg
trend tele
eventual eliquis (and will stop prasugrel)
Impression / Plan
-
83 yo male with PMH of CAD, LAD stent 2021, mild/mod , CKD3b. Admitted with severe lab abnormalities including Hgb 6.9, acute renal failure with hyperkalemia, glu >750. We are consulted for new A fib.
Paroxysmal Afib.
-Echo 04/27: EF 55-60%, mild .
-Back in sinus. Continue coreg.
-also noted are PAC's, PVC's, Wenckebach--seems to be improving with correction of electrolyte abnormalities
-CHADS2-VASC = 5. Eventual single agent eliquis for his A fib and CAD, but not ready for OAC yet, as anemia need to be investigated.
Acute renal failure, threat to life
-nephrology managing
-may need HD
Suspected UTI with bacteremia
-Abx per primary team
CAD with hx stenting (2021):
-seems to be stable
-continue prasugrel--eventual transition to single agent eliquis
-allergic to Plavix and Brilinta per OP chart
Aortic stenosis:
-mild, stable
HTN:
-continue coreg and amlodipine
CCT 35 minutes
Physical Exam
Vital Signs/Labs
Vital Signs
Temp Pulse Resp BP Pulse Ox
96.9 F L 72 21 119/95 94
04/28/24 07:33 04/28/24 09:24 04/28/24 07:30 04/28/24 09:24 04/28/24 09:43
04/27/24 04/28/24 04/29/24
06:59 06:59 06:59
Actual Weight 67.1 kg 67.9 kg
04/28/24 03:16
PT 16.3 Sec (11.4-14.6) H 04/28/24 03:16
INR 1.26 04/28/24 03:16
Magnesium 1.9 mg/dl (1.6-2.3) 04/28/24 03:16
Physical Exam
Constitutional: No acute distress
EENT: Moist mucous membranes
Cardiovascular: Pedal edema is absent, JVD pressure is normal, Rhythm/rate is irregular and Systolic murmur present
Respiratory: Respiratory effort normal
Neuro/Psych: Alert
Data Reviewed
-
Date of Service: April 28, 2024
EKG: Other (Tele: SR, PAC's, PVC's, Layla)
Echo: Report Reviewed by me
Labs: Labs Reviewed by me
Critical Care Time (in minutes): 35
[2024-04-28 10:19] LABS: Glucose - Point of Care 111 mg/dl (70-99)
[2024-04-28 11:19] LABS: Glucose - Point of Care 113 mg/dl (70-99)
[2024-04-28] MEDS: EFFIENT 5 MG PO (12:11)
[2024-04-28 12:15] LABS: Glucose - Point of Care 121 mg/dl (70-99)
[2024-04-28 12:27] LABS: Lactic Acid 0.7 mmol/L (0.7-2.0)
[2024-04-28 13:10] LABS: Glucose - Point of Care 108 mg/dl (70-99)
--- NOTE | 2024-04-28 13:21 | PTCARENOTE ---
Addendum entered by Adrianna Ferraro RN 04/28/24 15:32:
Pt. transported back to rm [id number] s/p temp HD cath placement. 1600 BMP drawn prior to initiation of HD. HD currently in progress.
Original Note:
Pt. RN transported via bed down to IR for temp HD cath placement. Awaiting report from IR.
--- NOTE | 2024-04-28 13:53 | CM ---
CM following re: discharge planning.
Discussed in rounds, reviewed pt's chart, met with pt. Per rounds meeting, pt is to IR for temp HD cath placement. Per nephrology pt might need s medical biller dialysis treatment and it is not confirmed yet.
PT and OT will evaluate the pt to determine a level of care at discharge.
D/C plan: pt might need a short term rehab and outpatient HD treatment.
CM will follow with discharge plan updates as hospitalization progresses
[2024-04-28 14:03] LABS: Glucose - Point of Care 108 mg/dl (70-99)
[2024-04-28 14:33] LABS: Calcium 6.9 mg/dl (8.4-10.2); Carbon Dioxide 20 mmol/L (22-30); Chloride 95 mmol/L (98-107); Estimated Creatinine Clearance 8 ml/min; Glucose 87 mg/dl (70-99); Potassium 4.8 mmol/L (3.5-5.1); Sodium 129 mmol/L (135-145); eGFR 8.41
[2024-04-28 14:52] LABS: Blood Urea Nitrogen 127 mg/dl (9-20)
[2024-04-28 14:58] LABS: Hepatitis B Surface Antigen Negative (Negative)
[2024-04-28] MEDS: MANNITOL 25% 12.5 GRAMS IV ×2 (14:58→17:14)
--- NOTE | 2024-04-28 15:00 | PTCARENOTE ---
1200 BMP reviewed, critical results- Ca+ 6.9 and creat 6.[address] De. Further orders received; plan to replete Ca+ s/p HD tx per .
[2024-04-28 15:16] LABS: Hepatitis B Core Ab, Total Negative (Negative); Hepatitis B Surface Antibody Negative; Hepatitis C Antibody Negative (Negative)
--- NOTE | 2024-04-28 15:16 | W.PN.NEPH.HD ---
Assessment
-
Patient seen on dialysis
Systolic blood pressure stable at 121
Patient remains encephalopathic
Dialysis via tunneled right IJ catheter
next HD will be tomorrow
Progress Note - Hemodialysis
-
Date of Service: April 28, 2024
Duration: 15 minutes and 2 hours
Potassium Bath: 2
Opti-Dialyzer: 160
Ultrafiltration: Other (even)
Blood Flow: 200
Dialysate Flow: Other (400)
Heparin: none
EPO: none
[2024-04-28 15:20] LABS: Glucose - Point of Care 126 mg/dl (70-99)
[2024-04-28 15:41] LABS: Carbon Dioxide 20 mmol/L (22-30); Chloride 95 mmol/L (98-107); Estimated Creatinine Clearance 8 ml/min; Glucose 103 mg/dl (70-99); Potassium 4.9 mmol/L (3.5-5.1); Sodium 131 mmol/L (135-145); eGFR 8.25
[2024-04-28 15:50] LABS: Blood Urea Nitrogen 128 mg/dl (9-20)
[2024-04-28 16:18] LABS: Glucose - Point of Care 102 mg/dl (70-99)
[2024-04-28] MEDS: HEPARIN 2000 UNITS INTRACATH (17:12)
[2024-04-28 17:19] LABS: Glucose - Point of Care 91 mg/dl (70-99)
[2024-04-28] MEDS: CALCIUM GLUCONATE 280 MG IV (17:35)
[2024-04-28] MEDS: FLOMAX 0.4 MG PO (17:36)
[2024-04-28] MEDS: D5/0.45%NACL 1000 IV (17:37)
[2024-04-28 18:10] LABS: Glucose - Point of Care 100 mg/dl (70-99)
[2024-04-28 19:05] LABS: Glucose - Point of Care 112 mg/dl (70-99)
[2024-04-28 20:21] LABS: Glucose - Point of Care 121 mg/dl (70-99)
[2024-04-28 21:12] LABS: Blood Urea Nitrogen 84 mg/dl (9-20); Calcium 7.3 mg/dl (8.4-10.2); Carbon Dioxide 27 mmol/L (22-30); Chloride 95 mmol/L (98-107); Estimated Creatinine Clearance 13 ml/min; Glucose 105 mg/dl (70-99); Potassium 4.4 mmol/L (3.5-5.1); Sodium 131 mmol/L (135-145); eGFR 13.82
[2024-04-28 21:16] LABS: Glucose - Point of Care 120 mg/dl (70-99)
[2024-04-28] MEDS: LANTUS 0.15 UNITS SC (22:06)
[2024-04-28 22:26] LABS: Glucose - Point of Care 117 mg/dl (70-99)
[2024-04-28 23:14] LABS: Glucose - Point of Care 104 mg/dl (70-99)
[2024-04-29] VITALS (36 sets, daily range): BP systolic 96–162; BP diastolic 45–87; BMI 26.2; BMI 25.7
[2024-04-29 00:22] LABS: Glucose - Point of Care 83 mg/dl (70-99)
[2024-04-29] MEDS: HEPARIN 5000 UNITS SC (00:52)
--- NOTE | 2024-04-29 00:57 | PTCARENOTE ---
04/28/24- 1999 patient resting comfortably, offers no c/o pain, however patient is confused and is having issues as to why he is here, patient asks same questions every time you enter the room. patient remains on insulin gtt, fluctuating only
between 0.5 and 1, no s/s of hypo or hyperglycemia.
patient remains npo at this time except for meds.
2200- patient has scant urine output in valverde, it is dark tea with sediment.
per ADJUSTER, gap closed will give lantus and shut everything off at midnight.
[2024-04-29 06:00] LABS: Blood Urea Nitrogen 88 mg/dl (9-20); Carbon Dioxide 26 mmol/L (22-30); Chloride 95 mmol/L (98-107); Estimated Creatinine Clearance 11 ml/min; Glucose 58 mg/dl (70-99); Magnesium 1.8 mg/dl (1.6-2.3); Potassium 4.3 mmol/L (3.5-5.1); Sodium 132 mmol/L (135-145); eGFR 11.73
[2024-04-29] MEDS: ZOSYN 50 IV ×3 (06:20→22:40)
[2024-04-29] MEDS: DEXTROSE 50% SYRINGE 12.5 GRAMS IV (06:30)
--- NOTE | 2024-04-29 06:37 | PTCARENOTE ---
0000- insulin gtt off since midnight
bg 58 at 0630 frm am labs glucose given at 0630 will recheck in 30 min
diet ordered for this morning.
[2024-04-29 06:41] LABS: Hematocrit 20.3 % (39.0-52.0); Hemoglobin 7.1 g/dL (13.0-18.0); Mean Corpuscular Hgb 29.1 pg (27.0-31.0); Mean Corpuscular Volume 83.2 fL (80.0-94.0); Mean Platelet Volume 11.3 fL (7.4-10.4); Platelet Count 113 10^3/uL (130-400); Red Blood Cell Count 2.44 10^6/uL (4.70-6.10); Red Cell Dist. Width 15.5 % (11.5-14.5); White Blood Cell Count 17.3 10^3/uL (4.8-10.8)
--- NOTE | 2024-04-29 07:10 | W.PN.INTV ---
Today's Communication / Plan
Recommendations
Insulin drip weaned
Follow hemoglobin
Transfuse as needed
Hemodialysis
Transfer to telemetry-call pulmonary if respiratory issues arise
Assessment
-
83-year-old male with history of hypertension, CAD, diabetes, hyperlipidemia, chronic kidney disease who was recently in the hospital with a UTI treated with antibiotics and Rosenthal catheter was placed for persistent retention presented with
confusion, new onset atrial fibrillation, and hyperglycemia-bi manager consulted for DKA/new onset atrial fibrillation/critical care management 04/27/2024.
Toxic metabolic encephalopathy
DKA versus HHNK
Metabolic acidosis
Lactic acidosis
Bacteremia-Klebsiella pneumonia
RAISTEO
Hyperkalemia
Hypocalcemia
Hyponatremia-serum sodium 130
Zdrgyo-jdxdextchd-kahsnrwrno 7.9
Leukocytosis-WBC 18.8
Transaminitis
New onset atrial fibrillation
Hypoalbuminemia
Conditions present prior to admission:
Hypertension.
Hyperlipidemia.
CAD/stent.
Ictqpfgw-mbckzhz-jqouvfrap.
Neurogenic/atonic bladder with chronic Rosenthal catheter.
Chronic kidney disease stage IIIb.
Plan
Hemodynamically improved, insulin drip weaned off
Supplemental oxygen as needed
Incentive spirometry encouraged
Nebulizers if needed-currently not bronchospastic
Aspiration precautions
Follow blood sugar
Follow anion gap
Diabetic nurse practitioner following
Insulin drip weaned off
IV fluids per nephrology
Monitor potassium closely and replace when needed
Monitor renal function
Nephrology consultation noted-correspondence reviewed
Bicarb per nephrology
Dialysis catheter 04/28/2024
Hemodialysis will be initiated 04/28/2024 and again on 04/29/2024
Cultures reviewed
Bacteremia noted-blood cultures positive for Klebsiella pneumoniae
Repeat blood cultures pending
Urine culture pending
Sputum culture-unable to produce-chest x-ray clear
Empiric antibiotics-Zosyn initiated-adjust according to cultures
Cardiology following-correspondence reviewed
Atrial fibrillation rate control
Eventual transition to oral anticoagulant-Eliquis
Follow hemoglobin
Transfuse as needed
DVT prophylaxis-on heparin
Nutrition
Early mobilization to prevent deconditioning
If tolerating hemodialysis and off insulin drip then could be transferred to telemetry-call pulmonary if respiratory issues arise
Reviewed the patient's pertinent medical records including radiographs, insulin drip management, pressor management, sepsis management, microbiology, laboratory evaluations, and discussion with primary team, consultants, charge nurse, and critical
care nursing.
Diagnostic data:
Chest x-ray 04/26/2024-no focal consolidations, pleural effusions or pneumothorax
Subjective Dataa
Subjective Data
Date of Service:
Date of Service: April 29, 2024
Chief Complaint: Elevator Adjuster Follow Up and Pulmonary Follow Up
Subjective:
Feels better, no complaints of shortness of breath, chest pain or abdominal pain
Review of Systems
General: Other (Per HPI)
Objective Data
Data Reviewed
Vital Signs / I&O / Oxygen:
Vital Signs
Temp Pulse Resp BP Pulse Ox
98.1 F 56 16 114/51 94
04/29/24 03:21 04/29/24 06:00 04/29/24 06:00 04/29/24 06:00 04/29/24 02:00
Intake and Output
04/28/24 04/29/24 04/30/24
06:59 06:59 06:59
Intake Total 4009.0 / 4134.5 891.0 / 891.0
Output Total 375 / 375 85 / 85
Balance 3634.0 / 3759.5 806.0 / 806.0
SaO2 94
Physical Exam
General: Respiratory Distress (n) and Comfortable
HEENT: Normocephalic, Anicteric and Moist Mucous Membranes
Cardiovascular: Regular Rhythm
Respiratory: Wheeze (n), Crackles (Rare basilar), Rhonchi (n), Non-Labored Respirations, Accessory Resp Muscle Use (n) and Stridor (n)
GI: Soft, Non Distended and Non Tender
Neurology: Awake, Alert and No Motor Deficits
Skin: Warm, Good Color, Cyanosis (n), Jaundice (n) and Rash (n)
Labs/Micro/Reports
Lab Data
04/29/24 05:00
04/29/24 05:00
Microbiology
04/26/24 15:02 Blood/Venous Blood Culture - Preliminary
Klebsiella pneumoniae
04/26/24 15:02 Blood/Venous Gram Stain - Final
04/26/24 15:46 Urine Urine Culture - Preliminary
Gram negative bacilli
04/27/24 14:16 Blood/Venous Blood Culture - Preliminary
No Growth in 24 hours- Final report to follow
04/26/24 19:21 Blood/Venous Blood Culture - Preliminary
Klebsiella pneumoniae
04/26/24 19:21 Blood/Venous Gram Stain - Final
[2024-04-29 07:26] LABS: Glucose - Point of Care 112 mg/dl (70-99)
[2024-04-29 08:05] LABS: Absolute Neutrophils -Man Diff 16.2 10^3/uL (1.4-6.5); Anisocytosis 2+; Band Neutrophils 2 % (0-3); Hypochromasia 1+; Lymphocytes 2 % (20-51); Monocytes 4 % (2-9); Normal RBC Morphology No; Platelets Checked Yes; Poikilocytosis Slight; Segmented Neutrophils 92 % (42-75); Total Cells Counted 100
[2024-04-29] MEDS: HEPARIN SC (08:15)
--- NOTE | 2024-04-29 08:18 | SUR.OPER ---
0700 patient in bed. AAOx 3; Denies pain Denies nausea. BP via Rt upper arm 117/54 MAP 74; SB 55; RR 14; 92RA. left upper PICC line DL dressing intact. dressing changed 04/27; Left IJ dialysis dressing intact
--- NOTE | 2024-04-29 08:20 | W.PN.HOSP.TC ---
Today's Communication/Plan
-
HD today
transfuse 2 units pRBC
Assessment / Plan
Assessment / Plan
pt is an 83 year old male
Toxic metabolic encephalopathy--multiple possibilities--HHS Resolved, hyponatremia improved, uremia/azotemia & infection/sepsis most likely--apprec fish tender--agree with IVF and insulin drip, Q1H accuchecks and Q4H BMP--trend lactates--blood
cultures positive for Klebsiella pneumoniae and urine culture pending--cont zosyn--trend blood cultures until clear, 04/27 neg to date
Metabolic acidosis with lactic acidosis--likely from uremia/ARISTEO/ sepsis, do NOT believe DKA (no ketones in urine, beta hydroxybutyrate neg)--ABG reviewed--IVF per renal--continue valverde cath--apprec renal--valverde changed--cont zosyn-
type 2 DM--do not believe DKA, no ketones in urine, beta hydroxybutyrate neg suspect HHS more--hold Tresiba--now on SC insulin--apprec DM WIRELESS CELLULAR TECHNICIAN for assistance --Farxiga stopped as outpt
ARISTEO with hyperkalemia on CKD stage 3B--with hyperkalemia, acidosis--day 2 of hemodialysis---apprec renal
hyponatremia--sodium 118 on admission, now up to 129--with blood sugar 700 on admission did have pseudohyponatremia and corrected sodium was 129--follow BMP--apprec renal
hypocalcemia -- corrects to normal
anemia --likely of chronic disease--HGB 7.1-- iron, TIBC, %SAT, ferritin consistent with chronic disease--folate WNL, TSH WNL--HGB did drop with hydration and pt received 1 unit of pRBCs--will transfuse 2 more units
elevated LFTs--no abdominal pain--likely due to sepsis, infection--labs were much improved and now increased--follow
New onset Atrial fibrillation--no history--in addition, 1st EKG in ED no afib, 2nd showed afib--rate controlled--apprec cards--eventual transition to eliquis
Neurogenic bladder with chronic valverde catheter--changed in ED--consider urology consult--cont finasteride, tamsulosin
essential HTN -- cont meds as able--losartan stopped due to increased potassium
HLD--hold atorvastatin
CAD s/p stent in place--cont Prasugrel
Code status -- DNR
DVT prophylaxis--SCDs, d/c SC Heparin
Total Critical Care Time 33 minutes. I was immediately available to the patient and staff. I personally examined, reviewed labs, diagnostic images/reports, interpretations, treatment plans, discussed patient care with other providers and family
or caregivers (if patient is unable to make decisions), entered orders as appropriate and documented the medical record.
Anticipated Discharge: > 48 hours
Subjective/Interval History
-
Date of Service: April 29, 2024
pt without c/o
Objective Data
-
Labs:
Laboratory Results
04/28/24 04/29/24
20:49 05:00
WBC 17.3 H
Hgb 7.1 L
Hct 20.3 L*
Plt Count 113 L D
Sodium 131 L 132 L
Potassium 4.4 4.3
Chloride 95 L 95 L
Carbon Dioxide 27 26
BUN 84 H 88 H
Creatinine 4.1 H* 4.7 H*
Glucose 105 H 58 L
Calcium 7.3 L 7.0 L
Vital Signs:
max temp for 24 hours
04/28/24
23:10
Temp 98.5 F
Vital Signs
Temp Pulse Resp BP Pulse Ox
97.5 F 59 16 129/62 94
04/29/24 08:08 04/29/24 07:00 04/29/24 07:00 04/29/24 07:00 04/29/24 07:00
I&O
04/28/24 04/29/24 04/30/24
06:59 06:59 06:59
Intake Total 4009.0 / 4134.5 891.0 / 891.0
Output Total 375 / 375 /
Balance 3634.0 / 3759.5 806.0 / 806.0
Review of Systems
-
All other systems: Reviewed and negative
Physical Exam
-
General: Well Developed, Well Nourished and No Apparent Distress
HEENT: Normocephalic and Atraumatic; Negative Oxygen
Respiratory: Clear to Auscultation and Wheezes; Negative Rhonchi
Cardiac: Irregular Rhythm and Bradycardic
GI: Soft, Nontender, Nondistended and Normal Bowel Sounds
Genito-urinary: Valverde (scant urine in bag)
Musculoskeletal: No Clubbing, No Cyanosis and No Edema
Neuro: Awake and Nonfocal/Grossly Intact
Psych: Calm
[2024-04-29] MEDS: OCUVITE SOFTGEL 1 CAP PO ×2 (08:36→21:00)
[2024-04-29] MEDS: NORVASC 10 MG PO (08:36)
[2024-04-29] MEDS: PROSCAR 5 MG PO (08:36)
[2024-04-29] MEDS: NOVOLOG FLEXPEN-LOW RESISTANCE SC ×2 (08:38→17:25)
[2024-04-29] MEDS: NOVOLOG FLEXPEN 4 UNITS SC ×3 (08:38→17:49)
[2024-04-29] MEDS: COREG 12.5 MG PO ×2 (08:48→21:00)
[2024-04-29] MEDS: EFFIENT 5 MG PO (08:55)
[2024-04-29 09:38] LABS: Glucose - Point of Care 127 mg/dl (70-99)
[2024-04-29 11:33] LABS: Glucose - Point of Care 204 mg/dl (70-99)
[2024-04-29] MEDS: NOVOLOG FLEXPEN-LOW RESISTANCE 2 UNITS SC (11:50)
[2024-04-29] MEDS: HEPARIN 500 UNITS IV ×2 (12:15→13:15)
[2024-04-29] MEDS: FLEXBUMIN 25% FOR HEMODIALYSIS 12.5 GRAMS IV ×2 (12:30→14:00)
[2024-04-29] MEDS: MANNITOL 25% 12.5 GRAMS IV ×2 (12:33→14:04)
[2024-04-29] MEDS: RETACRIT 10000 UNITS IV (12:58)
--- NOTE | 2024-04-29 14:24 | W.PN.NEPH.HD ---
Assessment
-
pt seen during HD
vitals stable
even fluid balance
for 2 unit PRBC with HD today
high dose EWELINA
temp HD catheter functions fine
anuric
Progress Note - Hemodialysis
-
Date of Service: April 29, 2024
Duration: 45 minutes and 2 hours
Potassium Bath: 3
Calcium Bath: 2.5
Opti-Dialyzer: 160
Ultrafiltration: Other (0)
Blood Flow: 300
Dialysate Flow: 600
Heparin: yesx2
EPO: 21500
--- NOTE | 2024-04-29 14:47 | PTCARENOTE ---
Dialysis 2 hours treatment complected . 2 units PRBC administered during dialysis . VSS. pt awake and oriented. Downgraded to telemetry floor level of care
[2024-04-29] MEDS: HEPARIN 2100 UNITS INTRACATH (15:28)
--- NOTE | 2024-04-29 16:57 | PTCARENOTE ---
patient transferred to room 328 transfer via bed. pt's belongings and insulin pen transfer with patient at the bedside aware of transfer phone report given . vSS pt AAO x3. SB 58; on RA pOx 95 % Abdomen soft non tender. Chronic indwelling
Rosenthal no urinal output. pt currently on dialysis. Rt IJ dialysis port dressing intact
[2024-04-29 17:14] LABS: Glucose - Point of Care 125 mg/dl (70-99)
[2024-04-29] MEDS: FLOMAX 0.4 MG PO (17:51)
--- NOTE | 2024-04-29 18:50 | PTCARENOTE ---
patient transferred from ICU via bed. denies pain, has faint expiratory exertional wheezes b/l. no sob, turns with assist x2, vss, oriented to new room and call shaffer, at bedside, will continue to monitor.
[2024-04-29 21:53] LABS: Glucose - Point of Care 120 mg/dl (70-99)
[2024-04-29] MEDS: LANTUS 0.15 UNITS SC (22:39)
[2024-04-30] VITALS (7 sets, daily range): BP systolic 112–144; BP diastolic 47–78; PULSE 61; BMI 25.9
[2024-04-30 03:44] LABS: Glucose - Point of Care 63 mg/dl (70-99)
[2024-04-30 04:02] LABS: Glucose - Point of Care 66 mg/dl (70-99)
[2024-04-30 04:18] LABS: Glucose - Point of Care 73 mg/dl (70-99)
[2024-04-30] MEDS: ZOSYN 50 IV ×3 (06:05→22:14)
[2024-04-30 06:39] LABS: Glucose - Point of Care 117 mg/dl (70-99)
--- NOTE | 2024-04-30 06:43 | PTCARENOTE ---
Patient report to staff @0340 that his BS was low. BS check result 63, patient alert and awake, diaphoretic. Protocol followed with juice, f/u BS 66, protocol continued BS 15 minutes after second juice 73. Two hour follow up BS check 117, care plan
continues.
[2024-04-30 08:17] LABS: Glucose - Point of Care 108 mg/dl (70-99)
[2024-04-30 09:02] LABS: Hematocrit 31.2 % (39.0-52.0); Hemoglobin 11.2 g/dL (13.0-18.0); Mean Corp Hgb Conc. 35.9 g/dL (33.0-37.0); Mean Corpuscular Hgb 30.2 pg (27.0-31.0); Mean Corpuscular Volume 84.1 fL (80.0-94.0); Platelet Count 87 10^3/uL (130-400); Red Blood Cell Count 3.71 10^6/uL (4.70-6.10); Red Cell Dist. Width 14.9 % (11.5-14.5); White Blood Cell Count 18.8 10^3/uL (4.8-10.8)
[2024-04-30 09:17] LABS: ALT (SGPT) 54 U/L (0-50); AST (SGOT) 65 U/L (17-59); Albumin 2.1 g/dl (3.5-5.0); Alkaline Phosphatase 479 U/L (38-126); Blood Urea Nitrogen 66 mg/dl (9-20); Calcium 7.2 mg/dl (8.4-10.2); Carbon Dioxide 25 mmol/L (22-30); Chloride 99 mmol/L (98-107); Estimated Creatinine Clearance 14 ml/min; Glucose 100 mg/dl (70-99); Potassium 4.7 mmol/L (3.5-5.1); Sodium 136 mmol/L (135-145); Total Bilirubin 1.4 mg/dl (0.2-1.3); Total Protein 4.9 g/dl (6.3-8.2); eGFR 15.14
[2024-04-30] MEDS: RETACRIT 6000 UNITS IV (09:18)
[2024-04-30 11:04] LABS: Glucose - Point of Care 98 mg/dl (70-99)
--- NOTE | 2024-04-30 11:17 | W.PN.NEPH.HD ---
Assessment
-
pt seen during HD
vitals stable
1 kg UF
hb better post PRBC
likely need to have tunneled catheter this week
no UOP yet
need HD unit placement
next HD Wednesday
Progress Note - Hemodialysis
-
Date of Service: April 30, 2024
Duration: 30 minutes and 3 hours
Potassium Bath: 3
Calcium Bath: 2.5
Opti-Dialyzer: 160
Ultrafiltration: Other (1kg)
Blood Flow: 350
Dialysate Flow: 600
Heparin: no
EPO: 6000
[2024-04-30] MEDS: HEPARIN 2200 UNITS INTRACATH (11:23)
--- NOTE | 2024-04-30 12:11 | VATNOTE ---
During routine assessment unable to determine if pt needs to have PICC in place. Contacted MD, states that they believe the patient no longer needs the PICC. Awaiting order to D/C PICC.
[2024-04-30 13:10] LABS: Glucose - Point of Care 116 mg/dl (70-99)
[2024-04-30] MEDS: NORVASC 10 MG PO (13:13)
[2024-04-30] MEDS: OCUVITE SOFTGEL 1 CAP PO ×2 (13:13→21:10)
[2024-04-30] MEDS: COREG 12.5 MG PO ×2 (13:13→21:10)
[2024-04-30] MEDS: PROSCAR 5 MG PO (13:14)
[2024-04-30] MEDS: NOVOLOG FLEXPEN-LOW RESISTANCE SC ×2 (13:21→13:22)
[2024-04-30] MEDS: NOVOLOG FLEXPEN 4 UNITS SC ×2 (13:21→17:26)
[2024-04-30] MEDS: NOVOLOG FLEXPEN SC (13:21)
[2024-04-30] MEDS: EFFIENT 5 MG PO (13:57)
--- NOTE | 2024-04-30 15:15 | W.PN.HOSP.TC ---
Today's Communication/Plan
-
d/c planning--will need HD unit, tunneled cath, conversion to Eliquis
Assessment / Plan
Assessment / Plan
pt is an 83 year old male
Toxic metabolic encephalopathy--multiple possibilities--HHS Resolved, hyponatremia resolved, uremia/azotemia & infection/sepsis most likely--apprec sawmill supervisor, moved out of ICU--now on SC insulin--blood and urine cultures positive for Klebsiella
pneumoniae, blood neg since 04/27/24--cont zosyn
Metabolic acidosis with lactic acidosis--likely from uremia/ARISTEO/ sepsis, do NOT believe DKA (no ketones in urine, beta hydroxybutyrate neg)--ABG reviewed--stop IVF--continue valverde cath--apprec renal--valverde changed--cont zosyn
type 2 DM--do not believe DKA, no ketones in urine, beta hydroxybutyrate neg suspect HHS more--hold Tresiba--now on SC insulin--apprec DM SCALER for assistance --Farxiga stopped as outpt
ARISTEO with hyperkalemia on CKD stage 3B--with hyperkalemia, acidosis--day 3 of hemodialysis, next HD Wednesday---apprec renal--will need tunneled HD cath in prep for d/c--likely will need SNF
hyponatremia--sodium 118 on admission, now 136--with blood sugar 700 on admission did have pseudohyponatremia --follow BMP--apprec renal
hypocalcemia -- corrects to normal
anemia --likely of chronic disease--HGB 7.1-- iron, TIBC, %SAT, ferritin consistent with chronic disease--folate WNL, TSH WNL--HGB did drop with hydration and pt received 1 unit of pRBCs--will transfuse 2 more units--hgb 11.1 after 3 units pRBC total
elevated LFTs--no abdominal pain--likely due to sepsis, infection--labs were much improved and now increased--follow
New onset Atrial fibrillation--no history--in addition, 1st EKG in ED no afib, 2nd showed afib--rate controlled--apprec cards--eventual transition to eliquis
Neurogenic bladder with chronic valverde catheter--changed in ED--consider urology consult--cont finasteride, tamsulosin
essential HTN -- cont meds as able--losartan stopped due to increased potassium
HLD--hold atorvastatin
CAD s/p stent in place--cont Prasugrel--eventual change to Eliquis and stop Prasugrel....
Code status -- DNR
DVT prophylaxis--SCDs
Anticipated Discharge: > 48 hours
Subjective/Interval History
-
Date of Service: April 30, 2024
pt sleeping but arousable--do not feel much improvement in his mental status
Objective Data
-
Labs:
Laboratory Results
04/30/24
07:59
WBC 18.8 H
Hgb 11.2 L D
Hct 31.2 L
Plt Count 87 L D
Sodium 136
Potassium 4.7
Chloride 99
Carbon Dioxide 25
BUN 66 H
Creatinine 3.8 H
Glucose 100 H
Calcium 7.2 L
Total Bilirubin 1.4 H
AST 65 H
ALT 54 H
Alkaline Phosphatase 479 H
Vital Signs:
max temp for 24 hours
04/30/24
03:33
Temp 98.3 F
Vital Signs
Temp Pulse Resp BP Pulse Ox
98.1 F 65 20 119/78 98
04/30/24 12:48 04/30/24 13:13 04/30/24 12:48 04/30/24 13:13 04/30/24 12:48
I&O
04/29/24 04/30/24 05/01/24
06:59 06:59 06:59
Intake Total 891.0 / 891.0 890 / 890
Output Total 85 / 85 0 / 0
Balance 806.0 / 806.0
Review of Systems
-
All other systems: Reviewed and negative
Physical Exam
-
General: Well Developed, Well Nourished and No Apparent Distress
HEENT: Normocephalic and Atraumatic
Respiratory: Clear to Auscultation; Negative Wheezes or Rhonchi
Cardiac: Irregular Rhythm
GI: Soft, Nontender, Nondistended and Normal Bowel Sounds
Musculoskeletal: No Clubbing, No Cyanosis and No Edema
Skin: Warm
Neuro: Negative Awake (sleepy but arousable)
Psych: Calm
--- NOTE | 2024-04-30 16:11 | W.PN.CD ---
Today's Communication / Plan
-
evaluate for eliquis tomorrow if Hgb stable s/p transfusion
will coordinate around timing of tunneled HD catheter
Impression / Plan
-
83 yo male with PMH of CAD, LAD stent 2021, mild/mod , CKD3b. Admitted with severe lab abnormalities including Hgb 6.9, acute renal failure with hyperkalemia, glu >750. We are consulted for new A fib.
Paroxysmal Afib.
-Echo 04/27: EF 55-60%, mild .
-Back in sinus. Continue coreg.
-also noted are PAC's, PVC's, Wenckebach--seems to be improving with correction of electrolyte abnormalities
-CHADS2-VASC = 5. Eventual single agent eliquis 2.5mg bid (age, Cr) for his A fib and CAD
-evaluate for eliquis tomorrow if Hgb stable s/p transfusion
Acute renal failure
-nephrology managing
-HD new start this admission
Suspected UTI with bacteremia
-Abx per primary team
CAD with hx stenting (2021):
-seems to be stable
-continue prasugrel--eventual transition to single agent eliquis
-allergic to Plavix and Brilinta per OP chart
Aortic stenosis:
-mild, stable
HTN:
-continue coreg and amlodipine
Physical Exam
Vital Signs/Labs
Vital Signs
Temp Pulse Resp BP Pulse Ox
98.1 F 65 20 119/78 98
04/30/24 12:48 04/30/24 13:13 04/30/24 12:48 04/30/24 13:13 04/30/24 12:48
04/29/24 04/30/24 05/01/24
06:59 06:59 06:59
Actual Weight 73.7 kg 72.83 kg
04/30/24 07:59
04/30/24 07:59
PT 16.3 Sec (11.4-14.6) H 04/28/24 03:16
INR 1.26 04/28/24 03:16
Magnesium 2.0 mg/dl (1.6-2.3) 04/30/24 07:59
Physical Exam
Constitutional: No acute distress
EENT: Moist mucous membranes
Cardiovascular: Rhythm & rate is regular, Pedal edema is absent, JVD pressure is normal and Systolic murmur present
Respiratory: Respiratory effort normal
Neuro/Psych: AO x 3
Data Reviewed
-
Date of Service: April 30, 2024
EKG: Other (Tele: SR 60s)
Labs: Labs Reviewed by me
[2024-04-30 16:28] LABS: Glucose - Point of Care 180 mg/dl (70-99)
--- NOTE | 2024-04-30 17:00 | PTCARENOTE ---
REMOVED PT'S LEFT ARM PICC WITHOUT DIFFICULTY. PRESSURE APPLIED AND GAUZE PRESSURE DRESSING IN PLACE, NO BLEEDING NOTED. PRIMARY RN AWARE. CALL HOFFMANN IN REACH
[2024-04-30] MEDS: NOVOLOG FLEXPEN-LOW RESISTANCE 1 UNITS SC (17:22)
[2024-04-30] MEDS: FLOMAX 0.4 MG PO (17:26)
[2024-04-30 22:08] LABS: Glucose - Point of Care 183 mg/dl (70-99)
[2024-04-30] MEDS: LANTUS 0.15 UNITS SC (22:14)
[2024-05-01 03:00] VITALS: BP 144/49
[2024-05-01 03:14] LABS: Glucose - Point of Care 89 mg/dl (70-99)
[2024-05-01] MEDS: ZOSYN 50 IV ×3 (05:09→21:58)
[2024-05-01 06:00] VITALS: BMI 26.5
[2024-05-01 06:54] LABS: Hematocrit 31.3 % (39.0-52.0); Hemoglobin 10.9 g/dL (13.0-18.0); Mean Corp Hgb Conc. 34.8 g/dL (33.0-37.0); Mean Corpuscular Hgb 30.1 pg (27.0-31.0); Mean Corpuscular Volume 86.5 fL (80.0-94.0); Mean Platelet Volume 11.1 fL (7.4-10.4); Platelet Count 88 10^3/uL (130-400); Red Blood Cell Count 3.62 10^6/uL (4.70-6.10); Red Cell Dist. Width 15.2 % (11.5-14.5); White Blood Cell Count 17.7 10^3/uL (4.8-10.8)
[2024-05-01 07:11] LABS: ALT (SGPT) 50 U/L (0-50); AST (SGOT) 39 U/L (17-59); Albumin 2.1 g/dl (3.5-5.0); Alkaline Phosphatase 449 U/L (38-126); Blood Urea Nitrogen 50 mg/dl (9-20); Calcium 7.1 mg/dl (8.4-10.2); Carbon Dioxide 26 mmol/L (22-30); Chloride 98 mmol/L (98-107); Estimated Creatinine Clearance 15 ml/min; Glucose 72 mg/dl (70-99); Magnesium 1.8 mg/dl (1.6-2.3); Potassium 4.2 mmol/L (3.5-5.1); Sodium 134 mmol/L (135-145); Total Protein 4.9 g/dl (6.3-8.2); eGFR 16.71
[2024-05-01 07:15] VITALS: BP 153/54
--- NOTE | 2024-05-01 07:54 | PN.DE.MGMTRT ---
Insulin Management
- -
05/01/2024 Diabetes Management F/U:
Patient brought to ED with change of mental status, found to be in DKA. PMH CAD, HTN, diabetes, ckd 3b, UTI 1 month ago. Prior to admission was taking Tresiba 10 units @ hs. A1C 03/22/24 8.5%. CR 6.3, eGFR 8.7 A1C 9.6%.
Patient is awake and alert, able to discuss diabetes management.
Patient was managed on insulin infusion and transitioned off on 04/28 to SQ Insulin.
Cr improving, 6.3-->3.5 today, eGFR 16.71
Noted 3AM glucose of 89 and an episode of hypoglycemia as low as 67 @08:13 this AM.
04/30 premeal was 98 to 180. Will reduce Lantus to 12 units @ hs. Cont NovoLog 4 units AC and low corrective.
Pt for SNF placement, appropriate dispo given advanced age and insulin requirements.
Diabetes History
- -
Type of Diabetes: 2 requiring insulin
Pre-Admission Diabetes Regimen
04/30/24 05/01/24
07:59 05:59
Creatinine 3.8 H 3.5 H
Lab Results
Hemoglobin A1c 9.6 % (4.0-5.6) H 04/27/24 06:06
Insulin Pump Settings
IP Diabetes Regimen
04/30/24 04/30/24 04/30/24
07:59 08:16 11:03
Glucose 100 H
POC Glucose 108 H 98
04/30/24 04/30/24 04/30/24
13:09 16:26 22:07
Glucose
POC Glucose 116 H 180 H 183 H
05/01/24 05/01/24
03:13 05:59
Glucose 72
POC Glucose 89
Patient Education
[2024-05-01 08:14] LABS: Glucose - Point of Care 67 mg/dl (70-99)
--- NOTE | 2024-05-01 08:42 | W.PN.HOSP.TC ---
Today's Communication/Plan
-
Continue current mgmt, HD tomorrow.
Assessment / Plan
Assessment / Plan
83-year-old male with known past medical history of essential hypertension currently on multiple drugs, insulin-dependent diabetes, neurogenic/atonic bladder with chronic Valverde catheter, coronary artery disease/CT 3 years ago s/p cardiac stenting
and currently on prasugrel and CKD 3B presented with his due to confusion and lethargy for few days.
#Toxic metabolic encephalopathy-multiple possibilities--HHS Resolved, hyponatremia resolved, uremia/azotemia & infection/sepsis most likely
-on SC insulin
-blood and urine cultures positive for Klebsiella pneumoniae, repeat blood neg since 04/27/24
-cont zosyn
#Metabolic acidosis with lactic acidosis--likely from uremia/ARISTEO/ sepsis, do NOT believe DKA (no ketones in urine, beta hydroxybutyrate neg)
-continue valverde cath
-apprec renal
-cont zosyn day 4
#Type 2 DM
-do not believe DKA, no ketones in urine, beta hydroxybutyrate neg suspect HHS more
-hold Tresiba;now on SC insulin
-apprec DM [employer] for assistance
-Farxiga stopped as outpt
#ARISTEO with hyperkalemia on CKD stage 3B
-with hyperkalemia, acidosis--completed 3 days of hemodialysis;next HD Wednesday/tomorrow
-Maintain Valverde
-apprec renal
-will need tunneled HD cath in prep for d/c--likely will need SNF
#hyponatremia
-sodium 118 on admission, now 134
-with blood sugar 700 on admission did have pseudohyponatremia
-follow BMP--apprec renal
#hypocalcemia
-corrects to normal
#Anemia --likely of chronic disease
-HGB 10.1
-iron, TIBC, %SAT, ferritin consistent with chronic disease
-folate WNL, TSH WNL
-HGB did drop with hydration and pt received 3 unit of pRBCs
#elevated LFTs
-no abdominal pain
-likely due to sepsis, infection
-labs much improved
#New onset Atrial fibrillation
-no history-in addition, 1st EKG in ED no afib, 2nd showed afib-rate controlled
-CHADS2-VASC = 5
-apprec cards-eventual transition to eliquis
#Neurogenic bladder with chronic valverde catheter
-changed in ED
-consider urology consult
-cont finasteride, tamsulosin
#Essential HTN
-cont meds.
-losartan stopped due to increased potassium
#HLD
-hold atorvastatin
#CAD s/p stent in place
-cont Prasugrel
-eventual change to Eliquis and stop Prasugrel....
Code status - DNR
DVT prophylaxis--SCDs
Anticipated Discharge: 24 - 48 hours
Subjective/Interval History
-
Date of Service: May 01, 2024
Interval events: No new complaint
Objective Data
-
Labs:
Laboratory Results
05/01/24
05:59
WBC 17.7 H
Hgb 10.9 L
Hct 31.3 L
Plt Count 88 L
Sodium 134 L
Potassium 4.2
Chloride 98
Carbon Dioxide 26
BUN 50 H
Creatinine 3.5 H
Glucose 72
Calcium 7.1 L
Total Bilirubin 1.0
AST 39
ALT 50
Alkaline Phosphatase 449 H
Vital Signs:
Vital Signs
Temp Pulse Resp BP Pulse Ox
98.0 F 61 18 153/54 97
05/01/24 07:15 05/01/24 07:15 05/01/24 07:15 05/01/24 07:15 05/01/24 07:15
I&O
04/30/24 05/01/24 05/02/24
06:59 06:59 06:59
Intake Total 890 / 890 810 / 810 340 / 340
Output Total 0 / 0 720 / 720 0 / 0
Balance 890 / 890 90 / 90 340 / 340
Review of Systems
-
All other systems: Reviewed and negative
Physical Exam
-
General: Well Developed, Well Nourished and No Apparent Distress
HEENT: Normocephalic and Atraumatic
Respiratory: Clear to Auscultation; Negative Wheezes or Rhonchi
Cardiac: Regular Rhythm
GI: Soft, Nontender, Nondistended and Normal Bowel Sounds
Musculoskeletal: No Clubbing, No Cyanosis and No Edema
Skin: Warm
Neuro: Negative Awake (sleepy but arousable) or Oriented
Psych: Calm
Data Reviewed
-
Labs: Labs Reviewed by me, Discussed with Physician and Discussed with Patient
[2024-05-01 08:46] LABS: Glucose - Point of Care 87 mg/dl (70-99)
[2024-05-01] MEDS: NOVOLOG FLEXPEN SC ×3 (09:36→18:27)
[2024-05-01] MEDS: NOVOLOG FLEXPEN-LOW RESISTANCE SC ×3 (09:37→18:28)
[2024-05-01] MEDS: COREG 12.5 MG PO ×2 (09:38→21:16)
[2024-05-01] MEDS: OCUVITE SOFTGEL 1 CAP PO ×2 (09:39→21:16)
[2024-05-01] MEDS: NORVASC 10 MG PO (09:39)
[2024-05-01] MEDS: PROSCAR 5 MG PO (09:39)
[2024-05-01 11:09] LABS: Glucose - Point of Care 174 mg/dl (70-99)
[2024-05-01 11:13] VITALS: BP 110/58
--- NOTE | 2024-05-01 11:14 | W.PN.NEPH.PH ---
Today's Communication / Plan
-
HD for tomorrow
Assessment/Plan
-
Assessment
Hypertension
ARISTEO
DKA
Metabolic acidosis
Lactic acidosis
Hyperkalemia
Hyponatremia
azotemia
Neurogenic bladder
Coronary artery disease
E faecalis urosepsis
Plan
hemodynamically stable
Serial BMP
Maintain Valverde ~720cc, weights up
ARISTEO is likely due to combination of neurogenic bladder in setting of severe DKA
Bilateral hydronephrosis noted on ultrasound: will need follow up CT to better assess for hydronephrosis but thought to be due to bladder atonia
Next dialysis for tomorrow orders provided he will need eventual tunneled HD catheter later this week
-
-
Date of Service: May 01, 2024
CC / HPI / ROS
-
Chief Complaint:
ARISTEO
History of Present Illness:
ARISTEO/Cr now on dialysis support
Hemodynamically stable
DKA improving after insulin gtt
Review of Systems:
no CP/SOB
confuse
valverde
Labs
-
Labs:
WBC 17.7 10^3/uL (4.8-10.8) H 05/01/24 05:59
RBC 3.62 10^6/uL (4.70-6.10) L 05/01/24 05:59
Hgb 10.9 g/dL (13.0-18.0) L 05/01/24 05:59
Hct 31.3 % (39.0-52.0) L 05/01/24 05:59
Plt Count 88 10^3/uL (130-400) L 05/01/24 05:59
Sodium 134 mmol/L (135-145) L 05/01/24 05:59
Potassium 4.2 mmol/L (3.5-5.1) 05/01/24 05:59
Chloride 98 mmol/L (98-107) 05/01/24 05:59
Carbon Dioxide 26 mmol/L (22-30) 05/01/24 05:59
BUN 50 mg/dl (9-20) H 05/01/24 05:59
Creatinine 3.5 mg/dL (0.7-1.3) H 05/01/24 05:59
eGFR 16.71 05/01/24 05:59
Glucose 72 mg/dl (70-99) 05/01/24 05:59
Calcium 7.1 mg/dl (8.4-10.2) L 05/01/24 05:59
Albumin 2.1 g/dl (3.5-5.0) L 05/01/24 05:59
Physical Exam
-
Vital Signs:
Vital Signs
Temp Pulse Resp BP Pulse Ox
98.0 F 61 18 153/54 97
05/01/24 07:15 05/01/24 09:39 05/01/24 07:15 05/01/24 09:39 05/01/24 07:15
Cardiovascular:: Regular rate and rhythm
Respiratory:: Bilateral: Coarse
Lung Excursion:: Normal
Abdomen:: Nontender and Soft
Bowel Sounds:: Normal
Extremity Edema:: None: Bilateral:
Valverde Catheter: Yes
--- NOTE | 2024-05-01 11:30 | PTCARENOTE ---
BG 67. pt asymptomatic. fruit juice per hypoglycemic protocol. 15 min follow-up sugar 87. breakfast arrived. 2 hour follow-up sugar 174. will continue to monitor pt
[2024-05-01 11:49] LABS: Glucose - Point of Care 194 mg/dl (70-99)
--- NOTE | 2024-05-01 12:43 | CM ---
Addendum entered by Carrie Hernandez 05/01/24 14:16:
Meeting with spouse at nurse's station
[facility] is her first choice
She is no longer interested in [facility]
Backup referral sent to [facility] per her request
Original Note:
CM reviewed and attempted bedside meeting with pt
Sleeping soundly
Call with spouse to review dc planning
SNF recommended by therapy and pt continues with HD needs
Spouse in agreement with SNF- very appreciate that SNF will be arranged
Aware limited options given HD needs
PAC provided bedside- she will review with family later in afternoon
Referrals sent to [facility] and [facility] per her request
Spouse very complimentary of care at
Discharge Disposition- SNF with HD needs
[2024-05-01] MEDS: EFFIENT PO ×2 (14:30→18:27)
--- NOTE | 2024-05-01 14:33 | PN.CDI ---
CDI
- -
CDI:
Physician Documentation Request
Admit Date: 04/26/24 17:29
Dear Doctor Neeraj/Resident,
Please review the following and provide your response in the progress notes.
Clinical Indicators:
Pt admitted with Sepsis 2/2 UTI /ARISTEO on CKD3b now on HD /HX of neurogenic bladder with chronic indwelling Valverde catheter Documented in H&P and progress notes 04/27-05/01, ' Neurogenic bladder with chronic valverde catheter changed in ED...'
Please clarify the relationship between these conditions:
Yes, _UTI__ is related to/associated with Chronic Valverde Catheter___.
No, UTI___ is not related to/associated with Chronic Valverde Catheter ___ but it is due to ___. (Please specify)
Unable to determine
Use of terms such as suspected, likely, concern for, or probable (associated with a specific diagnosis that is being evaluated, monitored, or treated as if it exists) are acceptable and can be coded in the inpatient setting, when documented at the
time of discharge.
Thank you,
Lillie Lira RN
CDI Specialist
[facility]
Please use your independent medical judgment in providing your response.
[2024-05-01 15:04] VITALS: BP 131/56
[2024-05-01 16:51] LABS: Glucose - Point of Care 157 mg/dl (70-99)
[2024-05-01] MEDS: FLOMAX PO ×2 (18:23→18:28)
[2024-05-01 20:18] VITALS: BP 130/55
[2024-05-01 21:23] LABS: Glucose - Point of Care 216 mg/dl (70-99)
[2024-05-01] MEDS: LANTUS 0.12 UNITS SC (21:58)
[2024-05-01 23:06] VITALS: BP 138/53
[2024-05-02] VITALS (7 sets, daily range): BP systolic 59–144; BP diastolic 51–64; BMI 26.1
[2024-05-02 03:57] LABS: Glucose - Point of Care 197 mg/dl (70-99)
[2024-05-02] MEDS: ZOSYN 50 IV (05:31)
[2024-05-02 06:57] LABS: Hematocrit 31.6 % (39.0-52.0); Hemoglobin 10.7 g/dL (13.0-18.0); Mean Corp Hgb Conc. 33.9 g/dL (33.0-37.0); Mean Corpuscular Hgb 30.1 pg (27.0-31.0); Mean Corpuscular Volume 88.8 fL (80.0-94.0); Mean Platelet Volume 12.3 fL (7.4-10.4); Platelet Count 96 10^3/uL (130-400); Red Blood Cell Count 3.56 10^6/uL (4.70-6.10); Red Cell Dist. Width 15.4 % (11.5-14.5)
[2024-05-02 07:11] LABS: ALT (SGPT) 44 U/L (0-50); AST (SGOT) 35 U/L (17-59); Alkaline Phosphatase 426 U/L (38-126); Blood Urea Nitrogen 67 mg/dl (9-20); Calcium 7.1 mg/dl (8.4-10.2); Carbon Dioxide 21 mmol/L (22-30); Chloride 96 mmol/L (98-107); Estimated Creatinine Clearance 11 ml/min; Glucose 176 mg/dl (70-99); Potassium 4.8 mmol/L (3.5-5.1); Sodium 130 mmol/L (135-145); Total Bilirubin 0.9 mg/dl (0.2-1.3); Total Protein 4.9 g/dl (6.3-8.2); eGFR 11.73
--- NOTE | 2024-05-02 07:16 | W.PN.HOSP.TC ---
Addendum entered and electronically signed by Mona De MD 05/02/24 14:53:
I saw and evaluated the patient independently. I reviewed the resident�s note and agree with findings and plan as documented by Dr. Peterson.
GENERAL: well developed, well nourished, male in no apparent distress
HEENT: NC/AT
HEART: regular rate and rhythm, +S1, +S2
LUNGS : clear to auscultation bilaterally
ABDOM: soft, nontender, nondistended, + bowel sounds
EXT: no cyanosis, clubbing, or edema
NEUROLOGIC: grossly intact
Toxic metabolic encephalopathy-multiple possibilities--HHS Resolved, hyponatremia resolved, uremia/azotemia & infection/sepsis most likely---blood and urine cultures positive for Klebsiella pneumoniae, repeat blood neg since 04/27/24---UTI likely
related to chronic Valverde--cont zosyn; Plan to transition to oral antibiotics prior to discharge. ID consulted for further guidance on antibiotic selection and duration
Metabolic acidosis with lactic acidosis--likely from uremia/ARISTEO/ sepsis, do NOT believe DKA (no ketones in urine, beta hydroxybutyrate neg)-continue valverde cath-apprec renal--cont zosyn day 5
Type 2 DM-do not believe DKA, no ketones in urine, beta hydroxybutyrate neg suspect HHS more-hold Tresiba;now on SC insulin-apprec DM [employer] for assistance -Farxiga stopped as outpt
ARISTEO with hyperkalemia on CKD stage 3B--with hyperkalemia, acidosis--completed 3 days of hemodialysis;next HD today-Maintain Valverde-apprec renal-will need tunneled HD cath in prep for d/c--likely will need SNF
hyponatremia--resolved--hovering around 130, 131-follow BMP--apprec renal
hypocalcemia -corrects to normal
Anemia --likely of chronic disease-HGB 10.1-iron, TIBC, %SAT, ferritin consistent with chronic disease-folate WNL, TSH WNL-HGB did drop with hydration and pt received 3 unit of pRBCs
elevated LFTs-likely due to sepsis, infection-labs much improved
New onset Atrial fibrillation-no history-in addition, 1st EKG in ED no afib, 2nd showed afib-rate [id number] = 5-apprec cards-eventual transition to eliquis
Neurogenic bladder with chronic valverde catheter-changed in ED-consider urology consult-cont finasteride, tamsulosin
Essential HTN -cont meds-losartan stopped due to increased potassium
HLD-hold atorvastatin
CAD s/p stent in place-cont Prasugrel-eventual change to Eliquis and stop Prasugrel....
Code status - DNR
DVT prophylaxis--SCDs
d/c planning
Original Note:
Today's Communication/Plan
-
d/c planning. pending tunneled catheter, intermediate project manager working to find a spot at [facility] with HD facility
Assessment / Plan
Assessment / Plan
83-year-old male with known past medical history of essential hypertension currently on multiple drugs, insulin-dependent diabetes, neurogenic/atonic bladder with chronic Valverde catheter, coronary artery disease/[place] 3 years ago s/p cardiac stenting
and currently on prasugrel and CKD 3B presented with his due to confusion and lethargy for few days.
#Toxic metabolic encephalopathy-multiple possibilities--HHS Resolved, hyponatremia resolved, uremia/azotemia & infection/sepsis most likely
-on SC insulin
-blood and urine cultures positive for Klebsiella pneumoniae, repeat blood neg since 04/27/24
-UTI likely related to chronic Valverde
-Leukocytosis; improving
-cont zosyn; Plan to transition to oral antibiotics prior to discharge. ID consulted for further guidance on antibiotic selection and duration
#Metabolic acidosis with lactic acidosis--likely from uremia/ARISTEO/ sepsis, do NOT believe DKA (no ketones in urine, beta hydroxybutyrate neg)
-continue valverde cath
-apprec renal
-cont zosyn day 5
#Type 2 DM
-do not believe DKA, no ketones in urine, beta hydroxybutyrate neg suspect HHS more
-hold Tresiba;now on SC insulin
-apprec DM [employer] for assistance
-Farxiga stopped as outpt
#ARISTEO with hyperkalemia on CKD stage 3B
-with hyperkalemia, acidosis--completed 3 days of hemodialysis;next HD today
-Maintain Valverde
-apprec renal
-will need tunneled HD cath in prep for d/c--likely will need SNF
#hyponatremia
-sodium 118 on admission, now 130
-with blood sugar 700 on admission did have pseudohyponatremia
-follow BMP--apprec renal
#hypocalcemia
-corrects to normal
#Anemia --likely of chronic disease
-HGB 10.1
-iron, TIBC, %SAT, ferritin consistent with chronic disease
-folate WNL, TSH WNL
-HGB did drop with hydration and pt received 3 unit of pRBCs
#elevated LFTs
-no abdominal pain
-likely due to sepsis, infection
-labs much improved
#New onset Atrial fibrillation
-no history-in addition, 1st EKG in ED no afib, 2nd showed afib-rate controlled
-CHADS2-VASC = 5
-apprec cards-eventual transition to eliquis
#Neurogenic bladder with chronic valverde catheter
-changed in ED
-consider urology consult
-cont finasteride, tamsulosin
#Essential HTN
-cont meds.
-losartan stopped due to increased potassium
#HLD
-hold atorvastatin
#CAD s/p stent in place
-cont Prasugrel
-eventual change to Eliquis and stop Prasugrel....
Code status - DNR
DVT prophylaxis--SCDs
Anticipated Discharge: Within 24 hours
Subjective/Interval History
-
Date of Service: May 02, 2024
No new complaint: Feeling much better.
Objective Data
-
Labs:
Laboratory Results
05/02/24
06:03
WBC 17.0 H
Hgb 10.7 L
Hct 31.6 L
Plt Count 96 L
Sodium 130 L
Potassium 4.8
Chloride 96 L
Carbon Dioxide 21 L
BUN 67 H
Creatinine 4.7 H*
Glucose 176 H
Calcium 7.1 L
Total Bilirubin 0.9
AST 35
ALT 44
Alkaline Phosphatase 426 H
Vital Signs:
Vital Signs
Temp Pulse Resp BP Pulse Ox
98.1 F 61 16 142/51 95
05/02/24 02:57 05/02/24 02:57 05/02/24 02:57 05/02/24 02:57 05/02/24 02:57
I&O
05/01/24 05/02/24 05/03/24
06:59 06:59 06:59
Intake Total 810 / 810 1640 / 1640
Output Total 720 / 720 0 / 0
Balance 90 / 90 1640 / 1640
Review of Systems
-
All other systems: Reviewed and negative
Physical Exam
-
General: Well Developed, Well Nourished and No Apparent Distress
HEENT: Normocephalic and Atraumatic
Respiratory: Clear to Auscultation; Negative Wheezes or Rhonchi
Cardiac: Regular Rhythm
GI: Soft, Nontender, Nondistended and Normal Bowel Sounds
Musculoskeletal: No Clubbing, No Cyanosis and No Edema
Skin: Warm
Neuro: Awake, Alert and Oriented
Psych: Calm
Data Reviewed
-
Labs: Labs Reviewed by me, Discussed with Physician and Discussed with Patient
--- NOTE | 2024-05-02 07:42 | PN.DE.MGMTRT ---
Insulin Management
- -
05/02/2024 Diabetes Management Follow up:
Patient brought to ED with change of mental status, found to be in DKA. PMH CAD, HTN, diabetes, ckd 3b, UTI 1 month ago. Prior to admission was taking Tresiba 10 units @ hs. A1C 03/22/24 8.5%. CR 6.3, eGFR 8.7 A1C 9.6%.
Patient is sleeping, receiving dialysis.
Patient was managed on insulin infusion and transitioned off on 04/28 to SQ Insulin.
Patient receiving dialysis, cr today 4.7, eGFR 11.73. Patient received no ac novolog yesterday, glucose range 67 to 216. Fasting glucose today 176. Lantus reduced to 12 units @ hs. Will continue lantus 12 units with novolog 4 units AC, with low
corrective. HOLD 4 units novolog if patient not eating.
Diabetes History
- -
Type of Diabetes: 2 requiring insulin
Pre-Admission Diabetes Regimen
05/02/24
06:03
Creatinine 4.7 H*
Lab Results
Hemoglobin A1c 9.6 % (4.0-5.6) H 04/27/24 06:06
Insulin Pump Settings
IP Diabetes Regimen
05/01/24 05/01/24 05/01/24
08:13 08:40 11:08
Glucose
POC Glucose 67 L 87 174 H
05/01/24 05/01/24 05/01/24
11:49 16:50 21:22
Glucose
POC Glucose 194 H 157 H 216 H
05/02/24 05/02/24
03:54 06:03
Glucose 176 H
POC Glucose 197 H
Meal type: Dinner
Meal type: Lunch
Meal type: Breakfast
Amount consumed: 0
Amount consumed: 0
Amount consumed: 100%
Patient Education
--- NOTE | 2024-05-02 08:51 | W.PN.CD ---
Today's Communication / Plan
-
After tunneled line catheter, stop prasugrel and start Eliquis 2.5 mg p.o. twice daily.
-I have asked medicine to reassess his back pain
No further cardiac recs. I will sign off
Impression / Plan
-
83 yo male with PMH of CAD, LAD stent 2021, mild/mod , CKD3b. Admitted with severe lab abnormalities including Hgb 6.9, acute renal failure with hyperkalemia, glu >750. We are consulted for new A fib.
Paroxysmal Afib.
-Echo 04/27: EF 55-60%, mild .
-Back in sinus. Continue coreg.
-also noted are PAC's, PVC's, Wenckebach--seems to be improving with correction of electrolyte abnormalities
-CHADS2-VASC = 5. Eventual single agent eliquis 2.5mg bid (age, Cr) for his A fib and CAD
-Initiate Eliquis 2.5 mg twice daily if okay with primary team, after tunnel catheter placed
Acute renal failure
-nephrology managing.
-HD new start this admission, plan for tunneled catheter.
Suspected UTI with bacteremia
-Abx per primary team
CAD with hx stenting (2021):
-seems to be stable
-continue prasugrel--stop when eliquis initiated
-allergic to Plavix and Brilinta per OP chart
Aortic stenosis:
-mild, stable
HTN:
-continue coreg and amlodipine
Back pain: Tenderness on the right scapular, seems musculoskeletal. Will place hot compress. Further evaluation per medicine.
Subjective:
He has no chest pain or shortness of breath. Has some back pain since last night. Worse with movement and deep breath.
Physical Exam
Vital Signs/Labs
Vital Signs
Temp Pulse Resp BP Pulse Ox
98.1 F 61 16 142/51 95
05/02/24 02:57 05/02/24 02:57 05/02/24 02:57 05/02/24 02:57 05/02/24 02:57
05/01/24 05/02/24 05/03/24
06:59 06:59 06:59
Actual Weight 74.298 kg 73.391 kg
05/02/24 06:03
05/02/24 06:03
PT 16.3 Sec (11.4-14.6) H 04/28/24 03:16
INR 1.26 04/28/24 03:16
Magnesium 1.8 mg/dl (1.6-2.3) 05/01/24 05:59
Physical Exam
Constitutional: No acute distress and Comfortable
Cardiovascular: Rhythm & rate is regular, Pedal edema is absent, JVD pressure is normal and Systolic murmur absent
Respiratory: Respiratory effort normal, Lungs clear to auscul., Wheeze Absent and Crackles Absent
Other: Other (Tenderness along the right scapula)
Data Reviewed
-
Date of Service: May 02, 2024
Medical Decision Making: Review of Case with other Provider (Recommendations reviewed with Dr. Pickard. Nurse instructed to place a warm compress.)
--- NOTE | 2024-05-02 09:01 | CON.ID ---
Consultation
-
Date/Time Consultation Requested: May 01, 2024 1232
Date/Time Consultation Performed: May 02, 2024 0900
Requesting Provider: Dr. Jama Peterson
Performing Provider: Dr. Kelsey Wright
Reason for Consultation: UTI with bacteremia
Chief Complaint / Past History
Chief Complaint
Weakness
History of Present Illness
83 year old male with hx urinary tract infections, urinary retention requiring Valverde who was recently hospitalized from 03/21 to 06/23 [facility] due to malfunctioned urinary catheter, Ucx E. faecalis, dc'd home on amoxicillin for another 12 days. He
presented to the hospital 04/26 with change in mental status and increased lethargy. Valverde urine output was intermittent. Patient noted to be in ARISTEO on CKD, Cr 6.7, multiple electrolyte abnormalities, and new Afib. Valverde was exchanged in the ED
with purulent urine output. However patient continued to have minimal urine output and eventually started on hemodialysis. Admission blood cultures and urine culture positive for Klebsiella. He is currently on Zosyn. White count remains
elevated. Today patient denies any complaints. His mental status has improved. No bladder pain. No flank pain. No diarrhea. Appetite is better.
Past History
Additional Past Medical History:
CAD s/p stent
HTN
DM
CKD3b
Atonic bladder with Valverde
Additional Past Surgical History:
Cardiac stenting
Allergy History:
clopidogrel [From Plavix] Allergy (Verified 03/21/24 10:20)
Unknown
Medications Reviewed: Yes
Current Antibiotics:
Zosyn d6
Social History
Tobacco: Non-Smoker
Alcohol: None
Drug: None
Personal:
Living: With Family
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
Family History
Family History: Not Pertinent
Review of Systems
Review of Systems
General: Change in Appetite; Negative Fever or Chills
HEENT: Negative Sinus Problems, Headache or Pharyngitis
Cardiovascular: Negative Chest Pain or Dyspnea
Respiratory: Negative Dyspnea or Cough
Gasteroenterology: Negative Nausea, Vomiting or Diarrhea
Genital / Urological: Negative Dysuria, Hematuria or Flank Pain
Endocrine: Weakness
All systems: All other systems were reviewed and were negative
Vital Signs
Temp Pulse Resp BP Pulse Ox
97.7 F 59 18 131/58 96
05/02/24 07:35 05/02/24 07:35 05/02/24 07:35 05/02/24 07:35 05/02/24 07:35
Physical Exam
Physical Exam
Constitutional: No Acute Distress and Comfortable
Eyes: No Conjunctival Hemorrhage and Sclera Anicteric
Cardiovascular: Regular Rate and S1/S2
Pulmonary: Clear
Gastrointestinal: Soft, Non Tender, Non Distended and Normal Bowel Sounds
Genito-Urinary: Valverde (no urine); Negative Suprapubic Tenderness or CVA Tenderness
Extremities: Negative Edema
Neurological: Awake and Alert; Negative Meningeal Signs
Lab / Diagnostic Study Results
05/02/24 06:03
05/02/24 06:03
Abs Immat Gran (auto) 0.4 10^3/uL (0-0.05) H 04/26/24 13:39
Absolute Neuts (auto) 17.8 10^3/uL (1.4-6.5) H 04/26/24 13:39
Absolute Lymphs (auto) 0.5 10^3/uL (1.2-3.4) L 04/26/24 13:39
Absolute Monos (auto) 0.7 10^3/uL (0.1-0.6) H 04/26/24 13:39
Absolute Basos (auto) 0.0 10^3/uL (0-0.2) 04/26/24 13:39
Immature Gran % 2.0 % (0-0.5) H 04/26/24 13:39
Total Counted 100 04/29/24 05:00
Neutrophils % 91.6 % (42.2-75.2) H 04/26/24 13:39
Lymphocytes % 2.3 % (20.5-51.1) L 04/26/24 13:39
Monocytes % 3.8 % (1.7-9.3) 04/26/24 13:39
Eosinophils % 0.1 % (0-6) 04/26/24 13:39
Basophils % 0.2 % (0-2) 04/26/24 13:39
Abs Neuts (Manual) 16.2 10^3/uL (1.4-6.5) H 04/29/24 05:00
Segmented Neutrophils 92 % (42-75) H 04/29/24 05:00
Band Neutrophils 2 % (0-3) 04/29/24 05:00
Lymphocytes (Manual) 2 % (20-51) L 04/29/24 05:00
PT 16.3 Sec (11.4-14.6) H 04/28/24 03:16
INR 1.26 04/28/24 03:16
Lactic Acid 0.7 mmol/L (0.7-2.0) 04/28/24 12:05
Microbiology Results
Micro:
04/27/24 14:16 Blood Culture - Preliminary
Blood/Venous No Growth in 4 days- Final report to follow
04/29/24 09:09 Blood Culture - Preliminary
Blood/Venous No Growth in 48 hours- Final report to follow
04/26/24 15:46 Urine Culture - Final
Urine Klebsiella pneumoniae
04/26/24 19:21 Blood Culture - Final
Blood/Venous Klebsiella pneumoniae
Gram Stain - Final
04/26/24 15:02 Blood Culture - Final
Blood/Venous Klebsiella pneumoniae
Gram Stain - Final
04/27/24 Renal US: Bilateral hydronephrosis, moderate left and mild right.
Assessment / Plan
# Klebsiella complicated UTI
# Klebsiella bacteremia
# Leukocytosis persists
# Obstructive uropathy
# Neurogenic bladder with chronic valverde
# ARISTEO on CKD now on HD
- Of note renal US with bilateral hydronephrosis L>R
Less likely due to bladder outlet obstruction as patient has not responded to valverde exchange
Should pursue other possible reversible cause of hydronephrosis
Consider CT without contrast
Consider Urologist consult.
- Repeat bcx's neg
-NARROW Zosyn (d6) to cefazolin 1g IV q24.
-At time of discharge, transition to cefuroxime 500mg po q24H through 05/10/24.
-Follow WBC
- OK to place tunneled HD catheter from ID standpoint.
Care Review
Plan reviewed with: Physician (Dr. Peterson)
--- NOTE | 2024-05-02 09:57 | W.PN.NEPH.HD ---
Assessment
-
Patient seen on HD
sbp 143 at current u/f
plan for tunneled HD catheter today or tomorow
IR notified
Progress Note - Hemodialysis
-
Date of Service: May 02, 2024
Duration: 30 minutes and 3 hours
Potassium Bath: 2
Opti-Dialyzer: 160
Ultrafiltration: Other (1kg)
Blood Flow: 400
Dialysate Flow: 600
Heparin: none (PLT less then 100)
EPO: [id number]
[2024-05-02] MEDS: NOVOLOG FLEXPEN SC ×3 (10:00→17:58)
[2024-05-02] MEDS: NOVOLOG FLEXPEN-LOW RESISTANCE SC ×3 (10:00→17:59)
[2024-05-02] MEDS: RETACRIT 10000 UNITS IV (10:28)
[2024-05-02] MEDS: HEPARIN 2200 UNITS INTRACATH (11:43)
[2024-05-02] MEDS: EFFIENT 5 MG PO (12:24)
[2024-05-02] MEDS: OCUVITE SOFTGEL 1 CAP PO ×2 (12:26→19:49)
[2024-05-02] MEDS: PROSCAR 5 MG PO (12:26)
[2024-05-02] MEDS: COREG 12.5 MG PO ×2 (12:26→19:48)
[2024-05-02] MEDS: NORVASC 10 MG PO (12:26)
[2024-05-02 12:49] LABS: Glucose - Point of Care 120 mg/dl (70-99)
[2024-05-02] MEDS: ANCEF 5 IV (14:28)
--- NOTE | 2024-05-02 15:41 | CM ---
CM reviewed chart and pt with spouse
Spouse notes [facility] continues to be first choice
Pt has been accepted by SNF and [facility]
Plan for tunnel cath today
Pt receiving HD at hospital Tu//Wed but SNF will be a MWF schedule
Will need further discussion with nephro to convert HD schedule on dc
CM consult for Eliquis pricing
Call with spouse, she will bring in copy of Rx card and provide to CM for pricing purposes
Eliquis 2.5mg BID
Plan to send tunnel cath info to SNF once available and follow up on med pricing
Discharge Disposition- [facility] with HD
--- NOTE | 2024-05-02 16:01 | W.PN.UPDATE ---
Update Note
Progress Note Update
Discussed need to place tunneled dialysis catheter, given longer term HD needs, and the procedure to place the catheter. The patient understands but he says he does not want the catheter placed. I explained that he would eventually need a tunneled
catheter for continued hemodialysis. He is competent and says that he hopes he doesn't need assisted dialysis. All questions answered. No procedure performed, as the patient would not give informed consent at this time.
[2024-05-02 17:49] LABS: Glucose - Point of Care 100 mg/dl (70-99)
[2024-05-02] MEDS: FLOMAX 0.4 MG PO (17:59)
[2024-05-02 21:43] LABS: Glucose - Point of Care 201 mg/dl (70-99)
[2024-05-02] MEDS: LANTUS 0.12 UNITS SC (22:41)
[2024-05-03] VITALS (11 sets, daily range): BP systolic 58–146; BP diastolic 44–103; BMI 25.7
--- NOTE | 2024-05-03 04:12 | DOWNTIME ---
There was a [employer] Downtime on 05/03/2024 from 0100 to 05/03/2024 at 0350. Downtime documentation of patient's care, including medication administrations, has been reconciled in the electronic record per guidelines. Refer to the
patient's paper chart under the miscellaneous tab to see printed paper medication records and downtime forms.
[2024-05-03 06:35] LABS: Hematocrit 30.7 % (39.0-52.0); Hemoglobin 10.7 g/dL (13.0-18.0); Mean Corp Hgb Conc. 34.9 g/dL (33.0-37.0); Mean Corpuscular Hgb 30.1 pg (27.0-31.0); Mean Corpuscular Volume 86.2 fL (80.0-94.0); Mean Platelet Volume 12.1 fL (7.4-10.4); Platelet Count 109 10^3/uL (130-400); Red Blood Cell Count 3.56 10^6/uL (4.70-6.10); Red Cell Dist. Width 15.2 % (11.5-14.5); White Blood Cell Count 14.2 10^3/uL (4.8-10.8)
[2024-05-03 07:05] LABS: ALT (SGPT) 31 U/L (0-50); AST (SGOT) 21 U/L (17-59); Albumin 2.1 g/dl (3.5-5.0); Alkaline Phosphatase 366 U/L (38-126); Blood Urea Nitrogen 48 mg/dl (9-20); Calcium 7.1 mg/dl (8.4-10.2); Carbon Dioxide 26 mmol/L (22-30); Chloride 97 mmol/L (98-107); Estimated Creatinine Clearance 12 ml/min; Glucose 89 mg/dl (70-99); Potassium 4.1 mmol/L (3.5-5.1); Sodium 134 mmol/L (135-145); Total Bilirubin 0.6 mg/dl (0.2-1.3); Total Protein 5.1 g/dl (6.3-8.2); eGFR 13.05
--- NOTE | 2024-05-03 07:11 | W.PN.HOSP.TC ---
Today's Communication/Plan
-
d/c planning. pending tunneled catheter, manager cash working for pricing on eliquis
Assessment / Plan
Assessment / Plan
83-year-old male with known past medical history of essential hypertension currently on multiple drugs, insulin-dependent diabetes, neurogenic/atonic bladder with chronic Valverde catheter, coronary artery disease/[place] 3 years ago s/p cardiac stenting
and currently on prasugrel and CKD 3B presented with his due to confusion and lethargy for few days.
#Toxic metabolic encephalopathy-multiple possibilities--HHS Resolved, hyponatremia resolved, uremia/azotemia & infection/sepsis most likely
-on SC insulin
-blood and urine cultures positive for Klebsiella pneumoniae, repeat blood neg since 04/27/24
-UTI likely related to chronic Valverde
-Leukocytosis; improving
-NARROW Zosyn (d6) to cefazolin 1g IV q24 by ID. Plan to transition to oral antibiotics prior to discharge.(At time of discharge, transition to cefuroxime 500mg po q24H through 05/10/24. )
#Metabolic acidosis with lactic acidosis--likely from uremia/ARISTEO/ sepsis, do NOT believe DKA (no ketones in urine, beta hydroxybutyrate neg)
-continue valverde cath
-apprec renal
-cont abx
#Type 2 DM
-do not believe DKA, no ketones in urine, beta hydroxybutyrate neg suspect HHS more
-hold Tresiba;now on SC insulin, Lantus 12 hs, novolog 4 units AC
-apprec DM MECHANIC INSULATOR for assistance
-Farxiga stopped as outpt
#ARISTEO with hyperkalemia on CKD stage 3B
-with hyperkalemia, acidosis--HD today, last on 05/02. SNF will be a MWF schedule
-Maintain Valverde
-apprec renal
-will need tunneled HD cath in prep for d/c--likely will need SNF
- Patient refused to proceed with the procedure on 05/02/24. Spoke with and explained the benefits and risks. She verified understanding and states 'will convince him'.
#hyponatremia
-sodium 118 on admission, now 134
-with blood sugar 700 on admission did have pseudohyponatremia
-follow BMP--apprec renal
#hypocalcemia
-corrects to normal
#Anemia --likely of chronic disease
-HGB 10.7
-iron, TIBC, %SAT, ferritin consistent with chronic disease
-folate WNL, TSH WNL
-HGB did drop with hydration and pt received 3 unit of pRBCs
#elevated LFTs
-no abdominal pain
-likely due to sepsis, infection
-labs much improved
#New onset Atrial fibrillation
-no history-in addition, 1st EKG in ED no afib, 2nd showed afib-rate controlled
-CHADS2-VASC = 5
-apprec cards-eventual transition to eliquis 2.5mg bid after tunnel catheter
-Cm consult for pricing
#Neurogenic bladder with chronic valverde catheter
-changed in ED
-consider urology consult
-cont finasteride, tamsulosin
#Essential HTN
-cont meds.
-losartan stopped due to increased potassium
#HLD
-hold atorvastatin
#CAD s/p stent in place
-cont Prasugrel for now
-eventual change to Eliquis and stop Prasugrel....
Code status - DNR
DVT prophylaxis--SCDs
Anticipated Discharge: 24 - 48 hours
Subjective/Interval History
-
Date of Service: May 03, 2024
Interval events: No new complaint
Objective Data
-
Labs:
Laboratory Results
05/03/24
05:58
WBC 14.2 H
Hgb 10.7 L
Hct 30.7 L
Plt Count 109 L
Sodium 134 L
Potassium 4.1
Chloride 97 L
Carbon Dioxide 26
BUN 48 H
Creatinine 4.3 H*
Glucose 89
Calcium 7.1 L
Total Bilirubin 0.6
AST 21
ALT 31
Alkaline Phosphatase 366 H
Vital Signs:
Vital Signs
Temp Pulse Resp BP Pulse Ox
98.2 F 61 18 143/52 95
05/03/24 04:00 05/03/24 04:00 05/03/24 04:00 05/03/24 04:00 05/03/24 04:00
I&O
05/02/24 05/03/24 05/04/24
06:59 06:59 06:59
Intake Total 1640 / 1640 780 / 780
Output Total 0 / 0
Balance 1640 / 1640 780 / 780
Review of Systems
-
All other systems: Reviewed and negative
Physical Exam
-
General: Well Developed, Well Nourished and No Apparent Distress
HEENT: Normocephalic and Atraumatic
Respiratory: Clear to Auscultation; Negative Wheezes or Rhonchi
Cardiac: Regular Rhythm
GI: Soft, Nontender, Nondistended and Normal Bowel Sounds
Musculoskeletal: No Clubbing, No Cyanosis and No Edema
Skin: Warm
Neuro: Awake, Alert and Oriented
Psych: Calm
Data Reviewed
-
Labs: Labs Reviewed by me, Discussed with Physician and Discussed with Patient
--- NOTE | 2024-05-03 07:25 | PN.DE.MGMTRT ---
Insulin Management
- -
05/03/2024 Diabetes Management Follow up:
Patient brought to ED with change of mental status, found to be in DKA. PMH CAD, HTN, diabetes, ckd 3b, UTI 1 month ago. Prior to admission was taking Tresiba 10 units @ hs. A1C 03/22/24 8.5%. CR 6.3, eGFR 8.7 A1C 9.6%.
Patient is awake and alert. Yesterday refused tunneled cath for dialysis.
Patient was managed on insulin infusion and transitioned off on 04/28 to SQ Insulin.
05/03 Dialysis yesterday, Cr today 4.3, eGFR 13.05, receiving dialysis again during my visit. Patient received no ac novolog yesterday, glucose range 100 to 201. Fasting glucose today 89.Will reduce lantus to 10 units with novolog 4 units AC, with
low corrective. HOLD 4 units novolog if patient not eating. Patient did eat dinner but meal time novolog held, HS glucose 201.
Will follow for further needed adjustments.
Discussed with nurse.
Diabetes History
- -
Type of Diabetes: 2 requiring insulin
Pre-Admission Diabetes Regimen
05/03/24
05:58
Creatinine 4.3 H*
Lab Results
Hemoglobin A1c 9.6 % (4.0-5.6) H 04/27/24 06:06
Insulin Pump Settings
IP Diabetes Regimen
05/02/24 05/02/24 05/02/24
12:47 17:47 21:43
Glucose
POC Glucose 120 H 100 H 201 H
05/03/24
05:58
Glucose 89
POC Glucose
Meal type: Dinner
Meal type: Breakfast
Amount consumed: 75%
Amount consumed: 80%
Patient Education
[2024-05-03 08:18] LABS: Glucose - Point of Care 76 mg/dl (70-99)
[2024-05-03] MEDS: NOVOLOG FLEXPEN SC ×2 (09:26→11:31)
--- NOTE | 2024-05-03 10:27 | W.PN.NEPH.HD ---
Assessment
-
pt seen during HD
vitals stable
pt now agreeable to have tunneled HD catheter-IR notified
planning [facility] at d/c
Progress Note - Hemodialysis
-
Date of Service: May 03, 2024
Duration: 3 hours
Potassium Bath: 3
Calcium Bath: 2.5
Opti-Dialyzer: 160
Ultrafiltration: Other (1kg)
Blood Flow: 400
Dialysate Flow: 600
Heparin: yesx2
EPO: no
[2024-05-03] MEDS: NOVOLOG FLEXPEN-LOW RESISTANCE SC ×2 (11:31→12:52)
[2024-05-03] MEDS: NORVASC 10 MG PO (11:33)
[2024-05-03] MEDS: OCUVITE SOFTGEL 1 CAP PO (11:33)
[2024-05-03] MEDS: COREG 12.5 MG PO (11:33)
[2024-05-03] MEDS: PROSCAR 5 MG PO (11:34)
[2024-05-03] MEDS: EFFIENT 5 MG PO (11:34)
[2024-05-03 12:18] LABS: Glucose - Point of Care 140 mg/dl (70-99)
--- NOTE | 2024-05-03 12:33 | W.PN.ID1 ---
Date of Service
Date of Service: May 03, 2024
Today's Communication
Continue cefazolin.
Urology input regarding hydronephrosis.
Assessment / Plan
# Klebsiella complicated UTI
# Klebsiella bacteremia
# Leukocytosis trending down
# Obstructive uropathy
# Neurogenic bladder with chronic valverde
# ARISTEO on CKD now on HD
- Of note renal US with bilateral hydronephrosis L>R
Less likely due to bladder outlet obstruction as patient has not responded to valverde exchange
Should pursue other possible reversible cause of hydronephrosis
Consider CT a/p to.
Recommend Urologist consult or outpt follow-up.
- Repeat bcx's neg
- Continue cefazolin 1g IV q24 (d7)
-At time of discharge, transition to cefuroxime 500mg po q24H through 05/10/24.
-Follow WBC
- OK to place tunneled HD catheter from ID standpoint.
Chief Complaint
-: UTI and Bacteremia
Subjective / Review of Systems
No new complaints.
Vital Signs / Physical Exam
Vital Signs
Vital Signs
Temp Pulse Resp BP Pulse Ox
97.6 F 61 17 142/70 96
05/03/24 07:00 05/03/24 11:33 05/03/24 07:00 05/03/24 11:33 05/03/24 07:00
Physical Exam
Constitutional: Comfortable
Cardiovascular: Regular Rate and S1/S2
Pulmonary: Clear
Gastrointestinal: Soft, Non Tender and Non Distended
Genito-Urinary: Valverde (empty)
Extremities: Edema (trace ankle edema)
Objective Data
Lab Data
Lab Results
05/03/24 05:58
05/03/24 05:58
PT 16.3 Sec (11.4-14.6) H 04/28/24 03:16
INR 1.26 04/28/24 03:16
Estimated Creat Clear 12 ml/min 05/03/24 05:58
Lactic Acid 0.7 mmol/L (0.7-2.0) 04/28/24 12:05
Total Bilirubin 0.6 mg/dl (0.2-1.3) 05/03/24 05:58
AST 21 U/L (17-59) 05/03/24 05:58
ALT 31 U/L (0-50) 05/03/24 05:58
Alkaline Phosphatase 366 U/L (38-126) H 05/03/24 05:58
Most recent labs reviewed.
Micro Results:
04/29/24 09:09 Blood Culture - Preliminary
Blood/Venous No Growth in 4 days- Final report to follow
04/27/24 14:16 Blood Culture - Final
Blood/Venous No Growth - Final Report
04/26/24 15:46 Urine Culture - Final
Urine Klebsiella pneumoniae
04/26/24 19:21 Blood Culture - Final
Blood/Venous Klebsiella pneumoniae
Gram Stain - Final
04/26/24 15:02 Blood Culture - Final
Blood/Venous Klebsiella pneumoniae
Gram Stain - Final
04/27/24 Renal US: Bilateral hydronephrosis, moderate left and mild right.
Care Review
Plan reviewed with: Physician (Dr. Pickard)
[2024-05-03] MEDS: NOVOLOG FLEXPEN 4 UNITS SC ×2 (12:52→17:31)
--- NOTE | 2024-05-03 14:21 | CM ---
CM reviewed pt with Dr. Peterson
Pt planned for tunnel cath today and continues with HD
CM obtained Rx card info from spouse
Copy placed on chart
[facility] ID# [id number]
Phone- [phone]
Call to [facility] for med pricing
Eliquis 2.5 mg BID- requires prior auth
Eliquis 2.5 mg only covered QD through plan (30 pills in 30 days)
$68.98 30 day retail
$203.53 90 day mail order
Physician completed [facility] prior auth form
CM faxed to [facility] [phone] and requested 24 hours expedited processing
Prior auth request placed on chart
Discharge Disposition- [facility] with new HD and Eliquis
[2024-05-03] MEDS: ANCEF 5 IV (15:03)
[2024-05-03 16:04] LABS: Glucose - Point of Care 140 mg/dl (70-99)
[2024-05-03 16:58] LABS: Glucose - Point of Care 174 mg/dl (70-99)
[2024-05-03] MEDS: NOVOLOG FLEXPEN-LOW RESISTANCE 1 UNITS SC (17:32)
[2024-05-03] MEDS: FLOMAX 0.4 MG PO (17:32)
[2024-05-03] MEDS: COREG PO (20:30)
[2024-05-03] MEDS: OCUVITE SOFTGEL PO (20:31)
[2024-05-03 21:26] LABS: Glucose - Point of Care 187 mg/dl (70-99)
[2024-05-03] MEDS: LANTUS 0.1 UNITS SC (23:00)
[2024-05-04 03:31] VITALS: BP 140/54
[2024-05-04 05:08] VITALS: BMI 25.5
[2024-05-04 06:00] VITALS: BMI 25.5
--- NOTE | 2024-05-04 07:10 | W.PN.HOSP.TC ---
Today's Communication/Plan
-
CT Abd/p
d/c once prior auth for eliquis 2.5mg bid
Assessment / Plan
Assessment / Plan
83-year-old male with known past medical history of essential hypertension currently on multiple drugs, insulin-dependent diabetes, neurogenic/atonic bladder with chronic Valverde catheter, coronary artery disease/[place] 3 years ago s/p cardiac stenting
and currently on prasugrel and CKD 3B presented with his due to confusion and lethargy for few days.
#Toxic metabolic encephalopathy-multiple possibilities--HHS Resolved, hyponatremia resolved, uremia/azotemia & infection/sepsis most likely
-on SC insulin
-blood and urine cultures positive for Klebsiella pneumoniae, repeat blood neg since 04/27/24
-UTI likely related to chronic Valverde
-Leukocytosis; improving
-NARROW Zosyn (d6) to cefazolin 1g IV q24 by ID. Plan to transition to oral antibiotics prior to discharge.(At time of discharge, transition to cefuroxime 500mg po q24H through 05/10/24. )
#Metabolic acidosis with lactic acidosis--likely from uremia/ARISTEO/ sepsis, do NOT believe DKA (no ketones in urine, beta hydroxybutyrate neg)
-continue valverde cath
-apprec renal
-cont abx
#Type 2 DM
-do not believe DKA, no ketones in urine, beta hydroxybutyrate neg suspect HHS more
-hold Tresiba;now on SC insulin, Lantus 12 hs, novolog 4 units AC
-apprec DM MEDICAL SERVICES ASSISTANT for assistance
-Farxiga stopped as outpt
#ARISTEO with hyperkalemia on CKD stage 3B
-with hyperkalemia, acidosis--HD 05/03. SNF will be a MWF schedule
-Maintain Valverde
-apprec renal
- Patient s/p tunnel catheter on 05/03/2024
-CT ab/p today per urology recs. patient refused initially but agreeb after I spoke with the
#hyponatremia
-sodium 118 on admission, now 135
-with blood sugar 700 on admission did have pseudohyponatremia
-follow BMP--apprec renal
#hypocalcemia
-corrects to normal
#Anemia --likely of chronic disease
-HGB 10.7
-iron, TIBC, %SAT, ferritin consistent with chronic disease
-folate WNL, TSH WNL
-HGB did drop with hydration and pt received 3 unit of pRBCs
#elevated LFTs
-no abdominal pain
-likely due to sepsis, infection
-labs much improved
#New onset Atrial fibrillation
-no history-in addition, 1st EKG in ED no afib, 2nd showed afib-rate controlled
-CHADS2-VASC = 5
-apprec cards-stop prasugrel, transition to eliquis 2.5mg bid today
-waiting for prior auth on eliquis
#Neurogenic bladder with chronic valverde catheter
-changed in ED
-consider urology consult
-cont finasteride, tamsulosin
#Essential HTN
-cont meds.
-losartan stopped due to increased potassium
#HLD
-hold atorvastatin
#CAD s/p stent in place
-Prasugrel switched to eliquis
Code status - DNR
DVT prophylaxis--SCDs
Anticipated Discharge: 24 - 48 hours
Subjective/Interval History
-
Date of Service: May 04, 2024
Interval events: No new complaints; patient received tunneled catheter for HD yesterday
Objective Data
-
Labs:
Laboratory Results
05/04/24
06:00
WBC Pending
Hgb Pending
Hct Pending
Plt Count Pending
Sodium Pending
Potassium Pending
Chloride Pending
Carbon Dioxide Pending
BUN Pending
Creatinine Pending
Glucose Pending
Calcium Pending
Total Bilirubin Pending
AST Pending
ALT Pending
Alkaline Phosphatase Pending
Vital Signs:
Vital Signs
Temp Pulse Resp BP Pulse Ox
98.7 F 68 17 140/54 93
05/04/24 03:31 05/04/24 03:31 05/04/24 03:31 05/04/24 03:31 05/04/24 03:31
I&O
05/03/24 05/04/24 05/05/24
06:59 06:59 06:59
Intake Total 780 / 780
Balance 780 / 780
Review of Systems
-
All other systems: Reviewed and negative
Physical Exam
-
General: Well Developed, Well Nourished and No Apparent Distress
HEENT: Normocephalic and Atraumatic
Respiratory: Clear to Auscultation; Negative Wheezes or Rhonchi
Cardiac: Regular Rhythm
GI: Soft, Nontender, Nondistended and Normal Bowel Sounds
Musculoskeletal: No Clubbing, No Cyanosis and No Edema
Skin: Warm
Neuro: Awake, Alert and Oriented
Psych: Calm
Data Reviewed
-
Labs: Labs Reviewed by me, Discussed with Physician and Discussed with Patient
[2024-05-04 07:15] VITALS: BP 132/48
[2024-05-04 07:48] LABS: Glucose - Point of Care 238 mg/dl (70-99)
[2024-05-04 08:07] LABS: Platelet Count 145 10^3/uL (130-400)
[2024-05-04 08:08] LABS: Hematocrit 33.7 % (39.0-52.0); Hemoglobin 10.9 g/dL (13.0-18.0); Mean Corp Hgb Conc. 32.3 g/dL (33.0-37.0); Mean Corpuscular Hgb 29.2 pg (27.0-31.0); Mean Corpuscular Volume 90.3 fL (80.0-94.0); Mean Platelet Volume 11.8 fL (7.4-10.4); Red Blood Cell Count 3.73 10^6/uL (4.70-6.10); Red Cell Dist. Width 15.5 % (11.5-14.5); White Blood Cell Count 13.6 10^3/uL (4.8-10.8)
[2024-05-04 08:12] LABS: ALT (SGPT) 20 U/L (0-50); AST (SGOT) 26 U/L (17-59); Albumin 2.3 g/dl (3.5-5.0); Alkaline Phosphatase 465 U/L (38-126); Blood Urea Nitrogen 38 mg/dl (9-20); Calcium 7.1 mg/dl (8.4-10.2); Carbon Dioxide 24 mmol/L (22-30); Chloride 98 mmol/L (98-107); Estimated Creatinine Clearance 12 ml/min; Glucose 246 mg/dl (70-99); Sodium 135 mmol/L (135-145); Total Bilirubin 0.6 mg/dl (0.2-1.3); Total Protein 5.4 g/dl (6.3-8.2); eGFR 13.43
[2024-05-04 08:22] LABS: Potassium 4.6 mmol/L (3.5-5.1)
[2024-05-04] MEDS: NOVOLOG FLEXPEN 4 UNITS SC ×3 (08:55→17:24)
[2024-05-04] MEDS: NOVOLOG FLEXPEN-LOW RESISTANCE 2 UNITS SC ×3 (09:00→17:26)
[2024-05-04] MEDS: OCUVITE SOFTGEL 1 CAP PO ×2 (09:02→21:22)
[2024-05-04] MEDS: NORVASC 10 MG PO (09:03)
[2024-05-04] MEDS: COREG 12.5 MG PO ×2 (09:03→21:22)
[2024-05-04] MEDS: PROSCAR 5 MG PO (09:03)
[2024-05-04] MEDS: EFFIENT PO (09:08)
[2024-05-04] MEDS: ELIQUIS 2.5 MG PO ×2 (09:41→21:21)
[2024-05-04 11:10] VITALS: BP 137/55
[2024-05-04 12:01] LABS: Glucose - Point of Care 219 mg/dl (70-99)
--- NOTE | 2024-05-04 13:00 | CONS.URO ---
Consultation
-
Date/Time Consultation Requested: 05/04
Date/Time Consultation Performed: 05/04
Requesting Provider: Hospitalist
Performing Provider: Claude
Reason for Consultation: ARF, bilateral hydronephrosis on US imaging, catheter malfunction
Medical History
History of Present Illness
83M previously seen as inpatient consult during last admission in mid 03/2024.
H/o elevated PSA noted several years ago indicative of BPH.
Started developing UTIs - seen by Nephrology for CKD.
Noted to have Enteroccocus - treated w/ antibiotic course.
Seen in office in early 03/2024 w/ suprapubic distention - bladder US in office demonstrated >1000 cc.
Rosenthal catheter placed w/ drainage of 1700 cc of purulent pyuria w/o hematuria.
Catheter drainage issues noted at home - retrograde and antegrade motion of catheter notable for improved drainage.
20Fr Coude placed in ED w/ immediate drainage of 2600 cc of purulent urine.
SPT placement in future was discussed as possible alternative to urethral Rosenthal catheter.
Noted to have Enterococcus faecalis cUTI.
Admitted w/ generalized weakness and poor appetite.
UCx + BCx => Klebsiella pneumoniae.
04/27: JUAN ALBERTO => moderate left hydro, mild right hydro
Rosenthal catheter draining well after initial placement - removed (unclear why) on 05/03.
On CIC last 48 hrs.
Urology contacted late in day on 05/03 - STAT CTAP w/o IV contrast recommended.
Patient refused CT imaging until I discussed rationale for imaging and concerns for bilateral hydronephrosis secondary to neurogenic bladder and pyuria contributing to intermittent catheter blockages.
05/04: CTAP w/o IV contrast =>
Severe bladder distention.
Severe bilateral hydroureter. No obstructing radiopaque stones are noted.
Probable small left parapelvic renal cysts.
Possible subcapsular right renal fluid collection.
Mild prostate hypertrophy.
Past Medical History
Past Medical History: CAD, HTN, IDDM, Renal Failure (CKD 4) and Other (dyslipidemia)
Past Surgical History: Cardiac (stent placement)
Social History
Tobacco: Non-smoker
Alcohol: None
Drug: None
Personal:
Living: With Family
Employment: Retired
Family History
Family History: Reviewed & Not Pertinent
Allergies/Home Medications
Allergies
Allergy/AdvReac Type Severity Reaction Status Date / Time
clopidogrel [From Plavix] Allergy Unknown Verified 03/21/24 10:20
Home Medications
�Medication �Instructions �Recorded �Confirmed �Type
amlodipine 5 mg tablet 10 mg PO DAILY Blood Pressure 03/08/24 04/26/24 History
tamsulosin 0.4 mg capsule 0.4 mg PO QPM Urinary Issue 03/08/24 04/26/24 History
atorvastatin 80 mg tablet 80 mg PO QPM High Cholesterol 03/16/24 04/26/24 History
chromium picolinate 500 mcg capsule 500 mcg PO DAILY Supplement 03/16/24 04/26/24 History
insulin degludec 100 unit/mL 10 unit SC DAILY Diabetes 03/16/24 04/26/24 History
subcutaneous solution (Tresiba
U-100 Insulin)
prasugrel 5 mg tablet 5 mg PO DAILY Blood Clot 03/16/24 04/26/24 History
Prevention/Tx
red yeast rice 600 mg capsule 1,200 mg PO DAILY Supplement 03/16/24 04/26/24 History
vitamins A,C,K-ibql-rxrtxm 2,148 1 tab PO BID Supplement 03/16/24 04/26/24 History
mcg-113 mg-45 mg-17.4 mg tablet
(PreserVision AREDS)
carvedilol 12.5 mg tablet (Coreg) 12.5 mg PO BID Blood Pressure 03/21/24 04/26/24 History
milk thistle 175 mg tablet 175 mg PO DAILY Supplement 03/21/24 04/26/24 History
therapeutic multivitamin 1 tab PO DAILY Supplement 03/21/24 04/26/24 History
finasteride 5 mg tablet 5 mg PO DAILY Urinary Issue 04/26/24 04/26/24 History
Review of Systems
-
History Source: Patient
A 12 point Review of Systems was completed except as noted: Yes
Physical Exam
Vital Signs
Vital Signs
Temp Pulse Resp BP Pulse Ox
97.9 F 69 18 146/59 97
05/04/24 15:10 05/04/24 15:10 05/04/24 15:10 05/04/24 15:10 05/04/24 15:10
Lab / Testing Results
Laboratory Results
05/04/24 07:27
05/04/24 07:27
Physical Exam
General: No Apparent Distress and Comfortable
HEENT: Normocephalic and Anicteric
Respiratory: Non Labored Respirations
Cardiac: S1/S2
Breast: N/A
GI: Soft, Non Tender and Distended (suprapubic distention c/w urinary retention)
Rectal: Deferred by Provider
Genito-urinary: No Costovertebral Tend and Other (Rosenthal catheter NOT in place at time of initial evaluation)
Musculoskeletal: No Edema
Skin: Warm and Dry
Neuro: AO x 3, No Motor Deficits and Nonfocal/Grossly Intact
Hematologic/Lymphatic: No Lymphadenopathy
Psych: Calm, Intact Judgement and Depressed
Assessment / Plan
-
Neurogenic bladder
Klebsiella urosepsis and bacteremia
Significant pyuria secondary to cUTI
Malpositioned catheter w/ suboptimal drainage
Severe bilateral hydroureteronephrosis
04/27: JUAN ALBERTO => moderate left hydro, mild right hydro
Rosenthal catheter draining well after initial placement - removed (unclear why) on 05/03.
On CIC last 48 hrs.
Urology contacted late in day on 05/03 - STAT CTAP w/o IV contrast recommended.
Patient refused CT imaging until I discussed rationale for imaging and concerns for bilateral hydronephrosis secondary to neurogenic bladder and pyuria contributing to intermittent catheter blockages.
05/04: CTAP w/o IV contrast =>
Severe bladder distention.
Severe bilateral hydroureter.
Suspect postrenal contribution to ARISTEO on CKD given CT findings.
Will need maximal bladder drainage given recent h/o pyuria causing intermittent catheter obstructions.
- CT imaging reviewed
- Rosenthal placement NOW - 22Fr 3-way catheter to maximize drainage and allow for CBI to facilitate clearance of pyuria
- Start low rate CBI to facilitate clearing of pyuria - will re-evaluate in 24 hrs for clamp trial
- Trend Cr, HD per Nephrology pending improvement in renal function
D/w patient.
D/w Hospitalist.
D/w Nephrology;
Data Reviewed
-
Total Time Spent with Patient (in minutes): 75
CT Scan: Image personally visualized and interpreted, Report Reviewed by Me, Discussed with Physician, Discussed with Nurse and Discussed with Patient
Ultrasound: Image personally visualized and interpreted, Report Reviewed by Me, Discussed with Physician and Discussed with Patient
Lab Data: Labs Reviewed, Discussed with Physician, Discussed with Patient and Discussed with Family
Old Records: Reviewed
--- NOTE | 2024-05-04 14:04 | W.PN.NEPH.PH ---
Today's Communication / Plan
-
await eval
HD tomorrow
Assessment/Plan
-
Assessment
Hypertension
ARISTEO
DKA
Metabolic acidosis
Lactic acidosis
Hyperkalemia
Hyponatremia
azotemia
Neurogenic bladder
Coronary artery disease
E faecalis urosepsis
Plan:
ARISTEO is likely due to combination of neurogenic bladder in setting of severe DKA
hemodynamically stable
no renal recovery noted and tunneled HD catheter placed on 05/03
only minimal UOP from valverde hence was d/c 05/[address] noted bladder distension and bilat hydro- consulted
abx per ID
will have to attempt UF with HD tomorrow -edema noted
-
-
Date of Service: May 04, 2024
CC / HPI / ROS
-
Chief Complaint:
ARISTEO
History of Present Illness:
ARISTEO/Cr now on dialysis support, HD yesterday
Hemodynamically stable
CT abd shows bilat hydro and bladder distension
Review of Systems:
no CP/SOB
confused
Labs
-
Labs:
WBC 13.6 10^3/uL (4.8-10.8) H 05/04/24 07:27
RBC 3.73 10^6/uL (4.70-6.10) L 05/04/24 07:27
Hgb 10.9 g/dL (13.0-18.0) L 05/04/24 07:
Hct 33.7 % (39.0-52.0) L 05/04/24 07:27
Plt Count 145 10^3/uL (130-400) D 05/04/24 07:
Sodium 135 mmol/L (135-145) 05/04/24 07:
Potassium 4.6 mmol/L (3.5-5.1) 05/04/24 07:27
Chloride 98 mmol/L (98-107) 05/04/24 07:27
Carbon Dioxide 24 mmol/L (22-30) 05/04/24 07:27
BUN 38 mg/dl (9-20) H 05/04/24 07:27
Creatinine 4.2 mg/dL (0.7-1.3) H* 05/04/24 07:27
eGFR 13.43 05/04/24 07:27
Glucose 246 mg/dl (70-99) H 05/04/24 07:27
Calcium 7.1 mg/dl (8.4-10.2) L 05/04/24 07:27
Albumin 2.3 g/dl (3.5-5.0) L 05/04/24 07:27
Physical Exam
-
Vital Signs:
Vital Signs
Temp Pulse Resp BP Pulse Ox
98.0 F 65 18 137/55 97
05/04/24 11:10 05/04/24 11:10 05/04/24 11:10 05/04/24 11:10 05/04/24 11:10
Cardiovascular:: Regular rate and rhythm
Respiratory:: Bilateral: CTA
Lung Excursion:: Normal
Abdomen:: Nontender and Soft
Extremity Edema:: +2: Bilateral:
Valverde Catheter: No
[2024-05-04 14:35] LABS: Urine Albumin 1+ (Neg - Trace); Urine Bilirubin Negative (Negative); Urine Character Slightly Cloudy (Clear); Urine Color Yellow; Urine Glucose Negative (Negative); Urine Ketone Negative (Negative); Urine Leukocyte 2+ (Negative); Urine Nitrite Negative (Negative); Urine Occult Blood 4+ (Negative); Urine Urobilinogen Negative (Neg - 1+)
[2024-05-04 14:42] LABS: Urine Squamous Cell 0-2 /LPF (Few)
[2024-05-04 14:43] LABS: Urine White Cell 70-80 /HPF (0-5)
[2024-05-04 14:44] LABS: Urine Bacteria Moderate (Negative)
[2024-05-04] MEDS: ANCEF 5 IV (15:04)
[2024-05-04 15:10] VITALS: BP 146/59
[2024-05-04 16:41] LABS: Glucose - Point of Care 238 mg/dl (70-99)
[2024-05-04] MEDS: LMX 4 1 APPLIC TOPICAL (17:27)
[2024-05-04] MEDS: FLOMAX 0.4 MG PO (17:28)
[2024-05-04 19:40] VITALS: BP 149/54
[2024-05-04 21:41] LABS: Glucose - Point of Care 370 mg/dl (70-99)
[2024-05-04 21:41] LABS: Glucose - Point of Care 357 mg/dl (70-99)
[2024-05-04] MEDS: LANTUS 0.1 UNITS SC (22:17)
[2024-05-04] MEDS: NOVOLOG FLEXPEN 10 UNITS SC (22:17)
[2024-05-04 23:10] VITALS: BP 137/53
[2024-05-05] VITALS (11 sets, daily range): BP systolic 104–162; BP diastolic 34–74; BMI 26.0
--- NOTE | 2024-05-05 07:00 | W.PN.UPDATE ---
Update Note
Progress Note Update
05/04: CTAP w/o IV contrast => massively distended bladder above umbilicus w/ severe bilateral hydroureteronephrosis.
Patient was being self-cathed - last cath in PM 05/03 notable for milky-colored (pyuria) 1700 cc volume.
22Fr 3-way catheter inserted at request of Urology.
CBI initiated to facilitate clearing of pyuria and maximize bladder decompression.
Plan:
- continue low drip CBI as urine clears
- Trend Cr, HD as indicated per Nephrology
- IV antibiotics for cUTI
- If renal function does not improve w/ catheter decompression and drainage - may require bilateral PCNs by IR (supravesical diversion)
--- NOTE | 2024-05-05 07:08 | W.PN.HOSP.TC ---
Today's Communication/Plan
-
cont abx
clear liquids
gi consult
2 bag pRBC
Assessment / Plan
Assessment / Plan
83-year-old male with known past medical history of essential hypertension currently on multiple drugs, insulin-dependent diabetes, neurogenic/atonic bladder with chronic Valverde catheter, coronary artery disease/CO 3 years ago s/p cardiac stenting
and currently on prasugrel and CKD 3B presented with his due to confusion and lethargy for few days.
#Toxic metabolic encephalopathy-multiple possibilities--HHS Resolved, hyponatremia resolved, uremia/azotemia & infection/sepsis most likely
-on SC insulin
-blood and urine cultures positive for Klebsiella pneumoniae, repeat blood neg since 04/27/24
-UTI likely related to chronic Valverde
-Leukocytosis; improving
-cefazolin 1g IV q24 by ID. Plan to transition to oral antibiotics prior to discharge.(At time of discharge, transition to cefuroxime 500mg po q24H through 05/10/24. )
#Metabolic acidosis with lactic acidosis--likely from uremia/ARISTEO/ sepsis, do NOT believe DKA (no ketones in urine, beta hydroxybutyrate neg)
-continue valverde cath
-apprec renal
-cont abx
#Type 2 DM
-do not believe DKA, no ketones in urine, beta hydroxybutyrate neg suspect HHS more
-hold Tresiba;now on SC insulin, Lantus 15 hs, novolog 8 units AC
-apprec DM CARRIER OPERATOR for assistance
-Farxiga stopped as outpt
#ARISTEO with hyperkalemia on CKD stage 3B
-with hyperkalemia, acidosis--HD today. SNF will be a MWF schedule
-Maintain Valverde; urology following
-apprec renal
- Patient s/p tunnel catheter on 05/03/2024
-CT ab/p:
Severe bladder distention.
Severe bilateral hydroureter.
#hyponatremia
-sodium 118 on admission, now 130
-with blood sugar 700 on admission did have pseudohyponatremia
-follow BMP--apprec renal
#hypocalcemia
-corrects to normal
#Anemia --likely of chronic disease and new onset GI bleed?
-HGB 7.1 drop from 10.9 yesterday
-iron, TIBC, %SAT, ferritin consistent with chronic disease
-folate WNL, TSH WNL
-HGB did drop with hydration and pt received 3 unit of pRBCs previously
05/05/24 Dark stools- possible GI bleed-
- PPI bid
- hold eliquis for now
- GI consulted
- clear liquid, patient already ate BF
-2 bags of pRBC
#elevated LFTs
-no abdominal pain
-likely due to sepsis, infection
-labs much improved
#New onset Atrial fibrillation
-no history-in addition, 1st EKG in ED no afib, 2nd showed afib-rate controlled
-CHADS2-VASC = 5
-apprec cards-stop prasugrel, transition to eliquis 2.5mg bid on 05/04/24
-insurance approved eliquis bid per CM
#Neurogenic bladder with chronic valverde catheter
-Recent Valverde 22 Fr 3-way on 05/04/24
-cont finasteride, tamsulosin
#Essential HTN
-cont meds.
-losartan stopped due to increased potassium
#HLD
-hold atorvastatin
#CAD s/p stent in place
-Prasugrel switched to eliquis
Code status - DNR
DVT prophylaxis--SCDs
Anticipated Discharge: 24 - 48 hours
Subjective/Interval History
-
Date of Service: May 05, 2024
Objective Data
-
Labs:
Laboratory Results
05/05/24
06:00
WBC Pending
Hgb Pending
Hct Pending
Plt Count Pending
Sodium Pending
Potassium Pending
Chloride Pending
Carbon Dioxide Pending
BUN Pending
Creatinine Pending
Glucose Pending
Calcium Pending
Vital Signs:
Vital Signs
Temp Pulse Resp BP Pulse Ox
98.7 F 62 18 137/53 99
05/04/24 23:10 05/04/24 23:10 05/04/24 23:10 05/04/24 23:10 05/04/24 23:10
I&O
05/04/24 05/05/24 05/06/24
06:59 06:59 06:59
Intake Total 1919 / 1919
Output Total 6325 / 6325
Balance -4405 / -4405
Review of Systems
-
All other systems: Reviewed and negative
Physical Exam
-
General: Well Developed, Well Nourished and No Apparent Distress
HEENT: Normocephalic and Atraumatic
Respiratory: Clear to Auscultation; Negative Wheezes or Rhonchi
Cardiac: Regular Rhythm
GI: Soft, Nontender, Nondistended and Normal Bowel Sounds
Musculoskeletal: No Clubbing, No Cyanosis and No Edema
Skin: Warm
Neuro: Awake, Alert and Oriented
Psych: Calm
Data Reviewed
-
Labs: Labs Reviewed by me, Discussed with Physician and Discussed with Patient
[2024-05-05 07:38] LABS: Glucose - Point of Care 318 mg/dl (70-99)
[2024-05-05] MEDS: NOVOLOG FLEXPEN-LOW RESISTANCE 4 UNITS SC ×2 (08:26→17:39)
[2024-05-05] MEDS: NOVOLOG FLEXPEN 4 UNITS SC (08:26)
[2024-05-05 08:37] LABS: Hematocrit 22.3 % (39.0-52.0); Hemoglobin 7.1 g/dL (13.0-18.0); Mean Corp Hgb Conc. 31.8 g/dL (33.0-37.0); Mean Corpuscular Hgb 29.2 pg (27.0-31.0); Mean Corpuscular Volume 91.8 fL (80.0-94.0); Mean Platelet Volume 11.8 fL (7.4-10.4); Platelet Count 140 10^3/uL (130-400); Red Blood Cell Count 2.43 10^6/uL (4.70-6.10); Red Cell Dist. Width 15.5 % (11.5-14.5); White Blood Cell Count 13.8 10^3/uL (4.8-10.8)
[2024-05-05 08:38] LABS: Blood Urea Nitrogen 69 mg/dl (9-20); Calcium 6.6 mg/dl (8.4-10.2); Carbon Dioxide 23 mmol/L (22-30); Chloride 97 mmol/L (98-107); Estimated Creatinine Clearance 10 ml/min; Glucose 286 mg/dl (70-99); Potassium 4.9 mmol/L (3.5-5.1); Sodium 130 mmol/L (135-145); eGFR 10.16
[2024-05-05] MEDS: COREG 12.5 MG PO ×2 (08:39→22:10)
[2024-05-05] MEDS: OCUVITE SOFTGEL 1 CAP PO ×2 (08:39→22:09)
[2024-05-05] MEDS: PROSCAR 5 MG PO (08:41)
[2024-05-05] MEDS: ELIQUIS 2.5 MG PO (08:41)
[2024-05-05] MEDS: NORVASC 10 MG PO (08:42)
--- NOTE | 2024-05-05 09:23 | PN.DE.MGMTRT ---
Insulin Management
- -
05/05/2024: Diabetes Management Follow up:
Patient brought to ED with change of mental status, found to be in DKA. PMH CAD, HTN, diabetes, ckd 3b, UTI 1 month ago. Prior to admission was taking Tresiba 10 units @ hs. A1C on 03/22/24 was 8.5%--> A1C 9.6% this admission. Cr 6.3, eGFR
8.7-->5.3, eGFR 10.16
Glucose Patient was managed on insulin infusion and transitioned off on 04/28 to SQ Insulin.
Patient is awake and alert. 05/04 noted for Hyperglycemia, glucose trended up to 357 @HS , premeal 219 to 238, requiring 2 to 4 units additional corrective insulin. Will increase Lantus to 15 units and NovoLog to 8 units AC, cont low corrective
insulin with meals.
HOLD 8 units NovoLog if patient not eating. Will follow for further needed adjustments.
Discussed with nurse and advised to hold AC NovoLog if pt is made NPO given change in condition with Acute GI bleed.
Diabetes History
- -
Type of Diabetes: 2 requiring insulin
Pre-Admission Diabetes Regimen
05/05/24
07:23
Creatinine 5.3 H*
Lab Results
Hemoglobin A1c 9.6 % (4.0-5.6) H 04/27/24 06:06
Insulin Pump Settings
IP Diabetes Regimen
05/04/24 05/04/24 05/04/24
12:00 16:40 21:37
Glucose
POC Glucose 219 H 238 H 370 H
05/04/24 05/05/24 05/05/24
21:39 07:23 07:35
Glucose 286 H
POC Glucose 357 H 318 H
Meal type: Dinner
Meal type: Lunch
Meal type: Breakfast
Amount consumed: 100%
Amount consumed: 60%
Amount consumed: 90%
Patient Education
--- NOTE | 2024-05-05 10:42 | W.PN.ID1 ---
Date of Service
Date of Service: May 05, 2024
Today's Communication
Continue cefazolin.
Assessment / Plan
# Klebsiella complicated UTI
# Klebsiella bacteremia
# Leukocytosis trending down
# Obstructive uropathy
# Atonic bladder with chronic valverde
# ARISTEO on CKD now on HD
- Renal US with bilateral hydronephrosis L>R
- 05/04/24 CT a/p severe bilateral hydroureter. No stones. Severe bladder distention to above level of umbilicus.
- Appreciate Urology. CBI to clear to clear pyuria and bladder decompression; if renal fxn does not improve, may need Perc neph.
- Continue cefazolin 1g IV q24 (d9)
-At time of discharge, transition to cefuroxime 500mg po q24H
-Follow WBC
Chief Complaint
-: UTI and Bacteremia
Subjective / Review of Systems
No complaints today.
Vital Signs / Physical Exam
Vital Signs
Vital Signs
Temp Pulse Resp BP Pulse Ox
98.5 F 67 17 138/52 97
05/05/24 07:55 05/05/24 08:39 05/05/24 07:55 05/05/24 08:39 05/05/24 07:55
Physical Exam
Constitutional: No Acute Distress and Comfortable
Pulmonary: Clear
Gastrointestinal: Soft, Non Tender and Non Distended
Genito-Urinary: Valverde (CBI in place)
Extremities: Negative Edema
Neurological: Alert
Objective Data
Lab Data
Lab Results
05/05/24 07:23
05/05/24 07:23
PT 16.3 Sec (11.4-14.6) H 04/28/24 03:16
INR 1.26 04/28/24 03:16
Estimated Creat Clear 10 ml/min 05/05/24 07:23
Lactic Acid 0.7 mmol/L (0.7-2.0) 04/28/24 12:05
Total Bilirubin 0.6 mg/dl (0.2-1.3) 05/04/24 07:27
AST 26 U/L (17-59) 05/04/24 07:27
ALT 20 U/L (0-50) 05/04/24 07:27
Alkaline Phosphatase 465 U/L (38-126) H 05/04/24 07:27
Most recent labs reviewed.
Micro Results:
05/04/24 13:55 Urine Culture - Pending
Urine
04/29/24 09:09 Blood Culture - Final
Blood/Venous No Growth - Final Report
04/27/24 14:16 Blood Culture - Final
Blood/Venous No Growth - Final Report
04/26/24 15:46 Urine Culture - Final
Urine Klebsiella pneumoniae
04/26/24 19:21 Blood Culture - Final
Blood/Venous Klebsiella pneumoniae
Gram Stain - Final
04/26/24 15:02 Blood Culture - Final
Blood/Venous Klebsiella pneumoniae
Gram Stain - Final
04/27/24 Renal US: Bilateral hydronephrosis, moderate left and mild right.
05/04/24 CT a/p wo IV contrast: Severe bilateral hydroureter. No obstructing radiopaque stones are noted. Possible subcapsular right renal fluid collection. Limited evaluation without IV contrast. Renal masses and masses of the collecting system
and bladder cannot be excluded without IV contrast. Mild prostate hypertrophy.
--- NOTE | 2024-05-05 11:24 | CON.GI ---
Addendum entered and electronically signed by Melissa Parks MD 05/05/24 15:31:
I saw and examined the patient.
The COOLING PIPE INSPECTOR or PA's note was reviewed and I agree with the note.
Comment: 83-year-old male past medical history as below including underlying CKD with new ARISTEO resulting in dialysis Newstart, new onset A-fib now on Eliquis, clot bacteremia secondary to UTI with possible need for PERC nephrostomy tube if no
improvement, GI now being consulted for melena concerning for likely upper GI bleed (could be lower or small bowel as well). Hemoglobin dropped to 7 today with a hypotensive episode requiring rapid response.
I recommended upper endoscopy at this time. I discussed with patient and risk, alternatives, benefits of upper endoscopy including but not limited to risk of bleeding, infection, perforation. The patient was initially not agreeable but later
in the day the called me and told me he is now agreeable.
I increased his PPI from 20 p.o. twice daily to 40 twice daily IV. He was getting blood in dialysis today. His last dose of Eliquis was this morning. He also ate breakfast this morning.
Plan for upper endoscopy tomorrow. Patient placed on schedule. Further recommendations pending endoscopy.
Clear liquids today, NPO after midnight.
I d/w nephrology and primary team.
Original Note:
Consultation
-
Date/Time Consultation Requested: 05/05/24 0917
Date/Time Consultation Performed: 05/05/24 1030
Requesting Provider: Dr. Jama Peterson
Performing Provider: Dr. Parks / Samantha Gil PA-C
Reason for Consultation: melena
Medical History
Chief Complaint / HPI
Chief Complaint: 'dark stool'
History of Present Illness:
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
bilateral hydronephrosis who had dark stool yesterday per nurse and GI is asked to consult for melena. Patient denies any daphne bleeding - no hematochezia or melena that he witnessed, either currently or in the past. He has never seen GI before,
never had colonoscopy or endoscopy. He denies any abdominal pain, nausea, vomiting, or constipation. He does admit to 'looser' stools during this hospital stay (current admission since 04/26/24). He describes his typical bowel pattern as regular,
formed BM once or twice daily. He denies any family history of colon cancer or any GI malignancies. Labs reveal hemoglobin of 7.1, normocytic indices (MCV 91.8, MCH 29.2), platelets 140. BUN 69, creatinine 5.3. He is scheduled for HD today. Eliquis
was held, but he did (accidentally) get his AM dose today. He is on IV antibiotics (cefazolin) and currently being followed by Infectious Disease, Nephrology, Urology. Cardiology consulted patient previously for the new onset a fib.
Past Medical History
Past Medical History: CAD (s/p stent 2021), HTN, Renal Failure (on HD) and Other (atrial fibrillation, neurogenic bladder with chronic Rosenthal, Klebsiella bacteremia secondary to UTI with bilateral hydronephrosis)
Past Surgical History: Other (cardiac stent 2021)
Social History
Tobacco: Non-Smoker
Alcohol: None
Personal:
Living: With Family
Family History
Family History: Other (no family history of GI malignancies)
Allergies / Home Medications
Allergy/AdvReac Type Severity Reaction Status Date / Time
clopidogrel [From Plavix] Allergy Unknown Verified 03/21/24 10:20
�Medication �Instructions �Recorded
amlodipine 5 mg tablet 10 mg PO DAILY Blood Pressure 03/08/24
tamsulosin 0.4 mg capsule 0.4 mg PO QPM Urinary Issue 03/08/24
atorvastatin 80 mg tablet 80 mg PO QPM High Cholesterol 03/16/24
chromium picolinate 500 mcg capsule 500 mcg PO DAILY Supplement 03/16/24
insulin degludec 100 unit/mL 10 unit SC DAILY Diabetes 03/16/24
subcutaneous solution (Tresiba
U-100 Insulin)
prasugrel 5 mg tablet 5 mg PO DAILY Blood Clot 03/16/24
Prevention/Tx
red yeast rice 600 mg capsule 1,200 mg PO DAILY Supplement 03/16/24
vitamins A,C,S-cjkj-zqphvm 2,148 1 tab PO BID Supplement 03/16/24
mcg-113 mg-45 mg-17.4 mg tablet
(PreserVision AREDS)
carvedilol 12.5 mg tablet (Coreg) 12.5 mg PO BID Blood Pressure 03/21/24
milk thistle 175 mg tablet 175 mg PO DAILY Supplement 03/21/24
therapeutic multivitamin 1 tab PO DAILY Supplement 03/21/24
finasteride 5 mg tablet 5 mg PO DAILY Urinary Issue 04/26/24
Review of Systems
-
History Source: Patient and Family
All other systems: A 12 pt ROS was Negative except as stated above in HPI
Vital Signs
Temp Pulse Resp BP Pulse Ox
98.5 F 67 17 138/52 97
05/05/24 07:55 05/05/24 08:39 05/05/24 07:55 05/05/24 08:39 05/05/24 07:55
Physical Exam
Exam
General: Well Developed and Well Nourished
Respiratory: Clear
Cardiac: Regular Rhythm
GI: Soft, Non Tender, Non Distended and Normal Bowel Sounds
Rectal: Brown (dark), Hem Positive and Other (no external hemorrhoids)
Skin: Warm and Dry
Neuro: AO x 3
Psych: Calm
Results
WBC 13.8 10^3/uL (4.8-10.8) H 05/05/24 07:23
Hgb 7.1 g/dL (13.0-18.0) L D 05/05/24 07:23
Hct 22.3 % (39.0-52.0) L 05/05/24 07:23
MCV 91.8 fL (80.0-94.0) 05/05/24 07:23
Plt Count 140 10^3/uL (130-400) 05/05/24 07:23
Absolute Neuts (auto) 17.8 10^3/uL (1.4-6.5) H 04/26/24 13:39
PT 16.3 Sec (11.4-14.6) H 04/28/24 03:16
INR 1.26 04/28/24 03:16
Sodium 130 mmol/L (135-145) L 05/05/24 07:23
Potassium 4.9 mmol/L (3.5-5.1) 05/05/24 07:23
Chloride 97 mmol/L (98-107) L 05/05/24 07:23
Carbon Dioxide 23 mmol/L (22-30) 05/05/24 07:23
BUN 69 mg/dl (9-20) H 05/05/24 07:23
Creatinine 5.3 mg/dL (0.7-1.3) H* 05/05/24 07:23
Calcium 6.6 mg/dl (8.4-10.2) L* 05/05/24 07:23
Total Bilirubin 0.6 mg/dl (0.2-1.3) 05/04/24 07:27
AST 26 U/L (17-59) 05/04/24 07:27
ALT 20 U/L (0-50) 05/04/24 07:27
Alkaline Phosphatase 465 U/L (38-126) H 05/04/24 07:27
Hep Bs Antibody Negative 04/28/24 12:05
Hep B Core Total Ab Negative (Negative) 04/28/24 12:05
Hepatitis C Antibody Negative (Negative) 04/28/24 12:05
Diagnostic Image Results:
05/04/24 CT Abdomen/Pelvis:
Severe bladder distention.
Severe bilateral hydroureter. No obstructing radiopaque stones are noted.
Probable small left parapelvic renal cysts.
Possible subcapsular right renal fluid collection. Limited evaluation without IV contrast. Renal masses and masses of the collecting system and bladder cannot be excluded without IV contrast.
Mild prostate hypertrophy.
Moderate bilateral pleural effusions.
Mild bibasilar consolidation probably atelectasis.
Mild ascites in the abdomen.
Prior GI Procedures:
EGD: Never
Colonoscopy: Never
Assessment / Plan
-
83 year old male with a past medical history of DM, HTN, ARISTEO/new-onset ESRD now on hemodialysis (MWF), new-onset atrial fibrillation (on Eliquis), CAD, neurogenic bladder with chronic Rosenthal, Klebsiella bacteremia secondary to UTI with bilateral
hydronephrosis who had dark stool yesterday per nurse and GI is asked to consult for melena. Patient denies any daphne bleeding - no hematochezia or melena that he witnessed, either currently or in the past. He has never seen GI before, never had
colonoscopy or endoscopy. He denies any abdominal pain, nausea, vomiting, or constipation. He does admit to 'looser' stools during this hospital stay (current admission since 04/26/24). He describes his typical bowel pattern as regular, formed BM
once or twice daily. He denies any family history of colon cancer or any GI malignancies. Labs reveal hemoglobin of 7.1, normocytic indices (MCV 91.8, MCH 29.2), platelets 140. BUN 69, creatinine 5.3. He is scheduled for HD today. Eliquis was held,
but he did (accidentally) get his AM dose today (last dose 05/05/24, AM).
IMPRESSION / PLAN:
Melena, on Eliquis for new-onset a fib
- Hgb 7.1 (down from 10.9 yesterday)
- 1 unit PRBCs has been ordered
- continue to trend Hgb
- last dose of Eliquis 05/05/24 in AM, now held
- patient is currently declining any endoscopic procedures -- to discuss further w Dr. Parks
Other medical problems to be managed by hospitalist and ID, Nephrology, Urology, Cardiology.
-
-
Thank you for consultation and allowing me to participate in the patient's care. Please call the refrigeration specialist GI physician during the after hours with any questions or concerns.
[2024-05-05 11:34] LABS: Glucose - Point of Care 329 mg/dl (70-99)
[2024-05-05 12:04] LABS: Glucose - Point of Care 339 mg/dl (70-99)
--- NOTE | 2024-05-05 13:47 | PTCARENOTE ---
Approx 11:50 today, this nurse entered pt room to start ordered PRBC infusion. Pt was found sitting on the toilet with L side of his head slumped against sink. Pt had second large bloody stool at that time. Pt was able to be roused briefly and shar Dawn"assisted to his bed, where he had another brief syncopal episode. Rapid Response was called, pt stabilized, no intervention necessary. VSS stable. Proceed with transfusion. Confirmed hold on today's scheduled dialysis until pt stabilizes, per
Monse.
--- NOTE | 2024-05-05 14:06 | CM ---
Anticipated Discharge: 24 - 48 hours
Discharge plan to be determined; PT/OT assessments pending
Eliquis was approved by insurance; Attending notified
[2024-05-05] MEDS: ANCEF 5 IV (14:21)
--- NOTE | 2024-05-05 14:25 | W.PN.NEPH.PH ---
Today's Communication / Plan
-
HD later today
Assessment/Plan
-
Assessment
Hypertension
ARISTEO
DKA
Metabolic acidosis
Lactic acidosis
Hyperkalemia
Hyponatremia
azotemia
Neurogenic bladder
Coronary artery disease
E faecalis urosepsis
Plan:
ARISTEO is likely due to combination of neurogenic bladder in setting of severe DKA
possible GIB with acute anemia
getting transfusion 2 units
had RR earlier with syncope in bathroom
will wait till he stabilizes prior starting HD today
spoke to GI EGD plan ?tomorrow, last eliquis this am
CBI per , clear urine now
no renal recovery noted and tunneled HD catheter placed on 05/03
abx per ID
high yang bath for hypocalcemia, check vit D and PTH
spoke with and nursing
d/w GI
-
-
Date of Service: May 05, 2024
CC / HPI / ROS
-
Chief Complaint:
ARISTEO
History of Present Illness:
ARISTEO/Cr now on dialysis support
Hemodynamically stable
CT abd shows bilat hydro and bladder distension 05/05
hb low at 7.1 from 10.9 yesterday
cr up at 5.3, yang low 6.6
Review of Systems:
sleeping during visit
does not to be bothered
Labs
-
Labs:
WBC 13.8 10^3/uL (4.8-10.8) H 05/05/24 07:23
RBC 2.43 10^6/uL (4.70-6.10) L 05/05/24 07:23
Plt Count 140 10^3/uL (130-400) 05/05/24 07:23
Sodium 130 mmol/L (135-145) L 05/05/24 07:23
Potassium 4.9 mmol/L (3.5-5.1) 05/05/24 07:23
Chloride 97 mmol/L (98-107) L 05/05/24 07:23
Carbon Dioxide 23 mmol/L (22-30) 05/05/24 07:23
BUN 69 mg/dl (9-20) H 05/05/24 07:23
Creatinine 5.3 mg/dL (0.7-1.3) H* 05/05/24 07:23
eGFR 10.16 05/05/24 07:23
Glucose 286 mg/dl (70-99) H 05/05/24 07:23
Calcium 6.6 mg/dl (8.4-10.2) L* 05/05/24 07:23
Albumin 2.3 g/dl (3.5-5.0) L 05/04/24 07:27
Physical Exam
-
Vital Signs:
Vital Signs
Temp Pulse Resp BP Pulse Ox
97.9 F 69 16 143/34 97
05/05/24 12:30 05/05/24 12:30 05/05/24 12:30 05/05/24 12:30 05/05/24 07:55
Cardiovascular:: Regular rate and rhythm
Respiratory:: Bilateral: Coarse
Lung Excursion:: Normal
Abdomen:: Nontender and Soft
Extremity Edema:: +3: Bilateral:
Rosenthal Catheter: Yes
[2024-05-05] MEDS: NOVOLOG FLEXPEN SC ×2 (15:15→17:09)
[2024-05-05] MEDS: NOVOLOG FLEXPEN-LOW RESISTANCE SC (15:16)
--- NOTE | 2024-05-05 15:48 | W.PN.CD ---
Addendum entered and electronically signed by Apolinar Dhaliwal MD 05/05/24 19:49:
I saw and examined the patient.
The YARN SKEINS EXAMINER's note was reviewed and I agree with the note.
Comment: He is lethargic, opens eyes briefly while on dialysis tonight. Does not offer any complaints. Overall, he has bilateral pitting edema regular rate and rhythm with normal S1-S2 no murmurs gallops were appreciated lungs were clear to
auscultation currently on dialysis which is controlling his volume. Unfortunately had a syncopal episode in the setting of a hemoglobin drop with likely GI bleeding while on Eliquis. Had been on prasugrel prior to Eliquis. Both agents currently
on hold. High risk situation given his prior history of PCI, but given acute drop in hemoglobin we will need to except this risk. Plan is for upper endoscopy tomorrow, will follow.
Original Note:
Today's Communication / Plan
-
-proceed with GIB/anemia work-up as planned
-OAC on hold- resume when safe
Impression / Plan
-
83 yo male with PMH of CAD, LAD stent 2021, mild/mod , CKD3b. Admitted with severe lab abnormalities including Hgb 6.9, acute renal failure with hyperkalemia, glu >750. We were consulted for new A fib. Eliquis started. Patient with acute anemia
with GIB now and had syncope in bathroom today in this setting.
Acute anemia/GIB/syncope:
-patient hgb dropped from 10.9 to 7.1 today. He walked to the bathroom today and per nursing had syncope. No concerning arrhythmias on monitor. Bloody stool was noted. Eliquis held. 2 units PRBC's administered. Plan is for endoscopy tomorrow. On
PPI. BP stable.
Paroxysmal Afib.
-Echo 04/27: EF 55-60%, mild .
-Back in sinus. Continue coreg.
-also noted are PAC's, PVC's, Wenckebach- no severe bradycardia or advanced conduction disease seen.
-CHADS2-VASC = 5. Eliquis initiated 05/04/24. However, now with acute anemia/GIB held. See above.
Acute renal failure:
-nephrology managing.
-HD new start this admission- to get later today.
Suspected UTI with bacteremia
-Abx per primary team
CAD with hx stenting (2021):
-seems to be stable
-allergic to Plavix and Brilinta per OP chart
-was on prasugrel with plan for single agent Eliquis when able
Aortic stenosis:
-mild, stable
HTN:
-continue coreg and amlodipine
Subjective:
Denies any CP or SOB
Physical Exam
Vital Signs/Labs
Vital Signs
Temp Pulse Resp BP Pulse Ox
97.9 F 64 16 132/45 96
05/05/24 15:05 05/05/24 15:05 05/05/24 15:05 05/05/24 15:05 05/05/24 15:05
05/04/24 05/05/24 05/06/24
06:59 06:59 06:59
Actual Weight 71.668 kg 73 kg
05/05/24 07:23
PT 16.3 Sec (11.4-14.6) H 04/28/24 03:16
INR 1.26 04/28/24 03:16
Magnesium 1.8 mg/dl (1.6-2.3) 05/01/24 05:59
Physical Exam
Constitutional: No acute distress
EENT: Anicteric
Cardiovascular: Rhythm & rate is regular and Pedal edema present (mild BLE edema)
Respiratory: Respiratory effort normal and Lungs clear to auscul.
Neuro/Psych: AO x 3
Data Reviewed
-
Date of Service: May 05, 2024
EKG: Other (tele SR)
Labs: Labs Reviewed by me
[2024-05-05 16:46] LABS: Glucose - Point of Care 316 mg/dl (70-99)
[2024-05-05] MEDS: FLOMAX 0.4 MG PO (17:39)
--- NOTE | 2024-05-05 17:54 | W.PN.NEPH.HD ---
Assessment
-
pt seen during HD
vitals stable
s/p 2 units of PRC, repeat cbc pending
high yang bath
CVC functoins fine
Progress Note - Hemodialysis
-
Date of Service: May 05, 2024
Duration: 30 minutes and 3 hours
Potassium Bath: 2
Calcium Bath: 2.5
Opti-Dialyzer: 160
Ultrafiltration: Other (2-2.5kg)
Blood Flow: 400
Dialysate Flow: 600
Heparin: no
EPO: [id number]
[2024-05-05] MEDS: RETACRIT 10000 UNITS IV (18:40)
[2024-05-05] MEDS: FLEXBUMIN 25% FOR HEMODIALYSIS 12.5 GRAMS IV (19:50)
[2024-05-05] MEDS: MANNITOL 25% 12.5 GRAMS IV (19:50)
[2024-05-05 20:48] LABS: Hematocrit 25.9 % (39.0-52.0); Hemoglobin 8.9 g/dL (13.0-18.0); Mean Corp Hgb Conc. 34.4 g/dL (33.0-37.0); Mean Corpuscular Volume 84.4 fL (80.0-94.0); Mean Platelet Volume 10.7 fL (7.4-10.4); Platelet Count 117 10^3/uL (130-400); Red Blood Cell Count 3.07 10^6/uL (4.70-6.10); Red Cell Dist. Width 16.6 % (11.5-14.5)
[2024-05-05] MEDS: HEPARIN 3900 UNITS INTRACATH (21:01)
[2024-05-05] MEDS: NSS (PRESERVATIVE FREE) 10 ML IV (22:09)
[2024-05-05] MEDS: PROTONIX IV 40 MG IV (22:09)
[2024-05-05] MEDS: LANTUS 0.15 UNITS SC (22:10)
[2024-05-05 22:11] LABS: Glucose - Point of Care 234 mg/dl (70-99)
[2024-05-06] VITALS (12 sets, daily range): BP systolic 16–144; BP diastolic 43–88; BMI 25.8
[2024-05-06 06:33] LABS: Glucose - Point of Care 203 mg/dl (70-99)
[2024-05-06 07:21] LABS: % Basophils 0.3 % (0-2); % Eosinophils 0.9 % (0-6); % Immature Granulocytes 1.3 % (0-0.5); % Lymphocytes 8.6 % (20.5-51.1); % Monocytes 4.9 % (1.7-9.3); Absolute Eosinophils 0.1 10^3/uL (0-0.7); Absolute Immature Granulocytes 0.2 10^3/uL (0-0.05); Absolute Monocytes 0.6 10^3/uL (0.1-0.6); Hemoglobin 7.4 g/dL (13.0-18.0); Mean Corp Hgb Conc. 35.2 g/dL (33.0-37.0); Mean Corpuscular Hgb 29.4 pg (27.0-31.0); Mean Corpuscular Volume 83.3 fL (80.0-94.0); Mean Platelet Volume 11.9 fL (7.4-10.4); Nucleated Red Blood Cells % 0 % (-); Platelet Count 125 10^3/uL (130-400); Red Blood Cell Count 2.52 10^6/uL (4.70-6.10); Red Cell Dist. Width 16.8 % (11.5-14.5); White Blood Cell Count 11.9 10^3/uL (4.8-10.8)
[2024-05-06 07:56] LABS: ALT (SGPT) < 10 U/L (0-50); AST (SGOT) 18 U/L (17-59); Albumin 2.1 g/dl (3.5-5.0); Alkaline Phosphatase 205 U/L (38-126); Blood Urea Nitrogen 55 mg/dl (9-20); Calcium 7.5 mg/dl (8.4-10.2); Carbon Dioxide 25 mmol/L (22-30); Chloride 98 mmol/L (98-107); Estimated Creatinine Clearance 12 ml/min; Glucose 209 mg/dl (70-99); Potassium 4.3 mmol/L (3.5-5.1); Sodium 134 mmol/L (135-145); Total Bilirubin 0.5 mg/dl (0.2-1.3); Total Protein 4.9 g/dl (6.3-8.2); eGFR 13.05
[2024-05-06] MEDS: NOVOLOG FLEXPEN 8 UNITS SC ×3 (08:09→18:11)
[2024-05-06] MEDS: PROSCAR 5 MG PO (08:10)
[2024-05-06] MEDS: PROTONIX IV 40 MG IV (08:10)
[2024-05-06] MEDS: OCUVITE SOFTGEL 1 CAP PO ×2 (08:10→20:09)
[2024-05-06] MEDS: NORVASC 10 MG PO (08:10)
[2024-05-06 08:11] LABS: Vitamin D, 25-OH*** 16.3 ng/mL (30-80)
[2024-05-06] MEDS: NSS (PRESERVATIVE FREE) 10 ML IV (08:11)
[2024-05-06] MEDS: COREG 12.5 MG PO ×2 (08:16→20:09)
[2024-05-06 08:34] LABS: Intact PTH 103.2 pg/ml (13.6-85.8)
--- NOTE | 2024-05-06 08:45 | W.PN.URO.CBU ---
Today's Communication / Plan
-
- 22Fr 3-way catheter placed 05/05
- Continue CBI on low drip to to maximize drainage and facilitate clearance of pyuria
- MAINTAIN Rosenthal catheter on discharge - will require VUDS as outpatient
- IV Cefazolin per ID for Klebsiella cUTI
- Trend Cr, HD per Nephrology pending renal function
D/w Hospitalist.
D/w Surgical Resident.
Assessment / Plan
-
Neurogenic bladder
Klebsiella urosepsis and bacteremia
Significant pyuria secondary to cUTI
Malpositioned catheter w/ suboptimal drainage
Severe bilateral hydroureteronephrosis
04/27: JUAN ALBERTO => moderate left hydro, mild right hydro
Rosenthal catheter draining well after initial placement - removed 05/03, switched to CIC.
Urology contacted evening 05/03 - STAT CTAP w/o IV contrast recommended.
Patient refused CT imaging until I discussed rationale for imaging and concerns about obstructive uropathy.
05/04: CTAP w/o IV contrast => severe bladder distention, severe bilateral hydroureter.
Suspect postrenal contribution to ARISTEO on CKD given CT findings.
Will need maximal bladder drainage given recent h/o pyuria causing intermittent catheter obstructions.
Diagnosis
-
Date of Service: May 06, 2024
-
Patient Diagnosis:
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
Klebsiella urosepsis/bacteremia
Significant pyuria secondary to cUTI
Malpositioned catheter w/ suboptimal drainage
Severe bilateral hydroureteronephrosis
Subjective
-
Tolerating catheter w/o difficulty.
CBI on minimal drip - urine nearly clear in tubing (faint traces of cloudiness).
NPO for EGD today.
Objective
-
Vital Signs
Temp Pulse Resp BP Pulse Ox
97.5 F 64 16 144/53 97
05/06/24 07:00 05/06/24 07:00 05/06/24 07:00 05/06/24 07:00 05/06/24 07:00
Intake and Output
05/05/24 05/06/24 05/07/24
06:59 06:59 06:59
Intake Total 192 / 0 980 / 980
Output Total 6325 / 6325 6700 / 6700 1000 / 1000
Balance -4405 / -4405 -5720 / -5720 -1000 / -1000
Intake:
Oral fluids 1919 / 1919 480 / 480
Blood Product Amount Infused ( 500 / 500
mL)
Packed Rbc Leukoreduced Unit 250 / 250
[id number]
Packed Rbc Leukoreduced Unit 250 / 250
[id number]
Output:
True Urine Output from CBI 6325 / 6325 6700 / 6700 1000 / 1000
Other:
Number of unmeasured liquid
stools
Rectum 1 1
Laboratory Results
05/06/24 06:55
05/06/24 06:55
Physical Exam
-
General - well developed, well nourished, no acute distress
Abdomen - soft, non-tender, non-distended
Genitalia - normal
Skin - warm & dry with no rash
Neuro - AOx3, no motor deficits
Counseling
-
Care Review
Data Reviewed
Discussed with: Hospitalist and Nursing
CT Scan: Report Pers Reviewed and Image Pers Reviewed
--- NOTE | 2024-05-06 11:06 | W.PN.HOSP.TC ---
Today's Communication/Plan
-
EGD today
H/H in the afternoon
Continue IV cefazolin
Hold Eliquis
Assessment / Plan
Assessment / Plan
#Toxic metabolic encephalopathy
-Likely multifactorial with sepsis, possible HHS/severe hyperglycemia
-Improved/resolving with correction of issues shown below
#Sepsis due to CAUTI - POA
#Neurogenic bladder with chronic valverde catheter
-Final urine culture showed Klebsiella pneumonia with resistance to only ampicillin
-Was started on IV Zosyn which was de-escalated to IV cefazolin on which he remains
-Leukocytosis and fevers have resolved, infectious disease team following
-Planning to transition cefazolin to oral cefuroxime 500 mg daily through 05/10
-Currently on CBI due to purulence upon Valverde placement yesterday
-Will need outpatient follow-up with urology; Valverde 22 Fr 3-way on 05/04/24
-Continue finasteride, tamsulosin; continue with Valverde at discharge
#New onset ESRD
#H/O CKD 3B
-Has been initiated on HD every // with nephrology here
-Had tunneled HD cath placed for long-term dialysis access
-Recent CT showed ongoing obstructive uropathy, now s/p Valverde catheter
-Trend daily BMP, continue with dialysis as scheduled
-Will need follow-up at discharge with nephrology and urology
#Suspected upper GI bleed
-Status post 5 units of PRBC total this hospital stay
-Developed dark maroon stools after being started on Eliquis this week
-Hemoglobin dropped significantly, received 2 units of PRBC, dropped again this morning
-Was started on IV PPI twice daily, n.p.o. status; GI consulted and planning EGD today
-Follow-up EGD, will speak with gastroenterology about when to resume Eliquis
-Continue to trend CBC, hemoglobin goal >7 or absence of symptom
#New onset Atrial fibrillation
-[id number] score 5, nonvalvular
-Was already on rate controlling agent with home carvedilol
-Was started on Eliquis here though currently held for presumed UGIB as above
-Follow-up EGD today, plan to trial Eliquis again once stable
#Type 2 DM
-Home medications include Lantus, NovoLog, Tresiba; previously on Farxiga
-Had severe hyperglycemia on arrival, suspected to be HHS, now improved
-Blood glucose currently stable on insulin regimen
#CAD s/p PCI
-Had PCI in 2021; Home meds include high intensity statin, beta-elsie, prasugrel
-Due to occurrence of new onset AF, prasugrel was transition to Eliquis
-Eliquis currently held due to GI bleeding as above
#Essential HTN
-Home medications include carvedilol, amlodipine
-No known history of hypertensive systemic diseases
-Blood pressure currently stable
#HLD
-Resume statin for after EGD
#Elevated LFTs
-Likely secondary to infection/sepsis, reduced perfusion
-Resolved
Code status: DNR
Diet: Carbohydrate controlled
DVT prophylaxis: SCDs
Anticipated Discharge: > 48 hours
Subjective/Interval History
-
Date of Service: May 06, 2024
Seen and examined at the bedside. No acute events reported overnight. AFVSS this morning
His hemoglobin did drop after receiving blood yesterday. Per nursing he is still having maroon-colored bowel movements. Anticoagulants held.
He denies any acute complaints. States that he feels well and is not experiencing any symptoms
Objective Data
-
Labs:
Laboratory Results
05/06/24
06:55
WBC 11.9 H
Hgb 7.4 L
Hct 21.0 L
Plt Count 125 L
Sodium 134 L
Potassium 4.3
Chloride 98
Carbon Dioxide 25
BUN 55 H
Creatinine 4.3 H*
Glucose 209 H
Calcium 7.5 L
Total Bilirubin 0.5
AST 18
ALT < 10
Alkaline Phosphatase 205 H
Vital Signs:
Vital Signs
Temp Pulse Resp BP Pulse Ox
97.5 F 64 16 144/53 97
05/06/24 07:00 05/06/24 07:00 05/06/24 07:00 05/06/24 07:00 05/06/24 07:00
I&O
05/05/24 05/06/24 05/07/24
06:59 06:59 06:59
Intake Total 1920 / 1920 980 / 980
Output Total 6325 / 6325 6700 / 6700 1000 / 1000
Balance -4405 / -4405 -5720 / -5720 -1000 / -1000
Review of Systems
-
History Source: Patient
All other systems: Reviewed and negative
Physical Exam
-
General: Well Nourished, No Apparent Distress and Comfortable
HEENT: Normocephalic, Atraumatic, Moist Mucous Membranes and Anicteric
Respiratory: Clear to Auscultation and Non Labored Respirations; Negative Accessory Resp Muscle Use
Cardiac: Regular Rhythm, S1/S2 and Murmur (Systolic ejection murmur); Negative Rub or Gallop
GI: Soft, Nontender, Nondistended and Normal Bowel Sounds
Musculoskeletal: No Clubbing, No Cyanosis and No Edema
Skin: Warm, Dry, Normal Turgor and Other (No pallor); Negative Rash
Neuro: AO x 3 and Nonfocal/Grossly Intact
Psych: Calm
Data Reviewed
-
Labs: Labs Reviewed by me, Discussed with Nurse and Discussed with Patient
--- NOTE | 2024-05-06 11:25 | W.PN.NEPH.PH ---
Today's Communication / Plan
-
next HD
Assessment/Plan
-
Assessment
Hypertension
ARISTEO
DKA
Metabolic acidosis
Lactic acidosis
Hyperkalemia
Hyponatremia
azotemia
Neurogenic bladder
Coronary artery disease
E faecalis urosepsis
Plan:
ARISTEO is likely due to combination of neurogenic bladder in setting of severe DKA
possible GIB with acute anemia for EGD today
s/p transfusion 2 units yesterday and now down to 7.4
05/05 RR earlier with syncope in bathroom
HD wednesday
CBI per , clear urine now
no renal recovery noted and tunneled HD catheter placed on 05/03
abx per ID
high calcium bath for hypocalcemia, check vit D and PTH
spoke with nursing
-
-
Date of Service: May 06, 2024
CC / HPI / ROS
-
Chief Complaint:
ARISTEO
History of Present Illness:
ARISTEO/Cr now on dialysis support
Hemodynamically stable
CT abd shows bilat hydro and bladder distension 05/05
hb low at 7.4 from 10.9 yesterday
cr up at 4.3, yang low 6.6
Review of Systems:
no fevers
does not to be bothered
Labs
-
Labs:
Sodium 134 mmol/L (135-145) L 05/06/24 06:55
Potassium 4.3 mmol/L (3.5-5.1) 05/06/24 06:55
Chloride 98 mmol/L (98-107) 05/06/24 06:55
Carbon Dioxide 25 mmol/L (22-30) 05/06/24 06:55
BUN 55 mg/dl (9-20) H 05/06/24 06:55
Creatinine 4.3 mg/dL (0.7-1.3) H* 05/06/24 06:55
eGFR 13.05 05/06/24 06:55
Glucose 209 mg/dl (70-99) H 05/06/24 06:55
Calcium 7.5 mg/dl (8.4-10.2) L 05/06/24 06:55
Albumin 2.1 g/dl (3.5-5.0) L 05/06/24 06:55
Physical Exam
-
Vital Signs:
Vital Signs
Temp Pulse Resp BP Pulse Ox
97.5 F 64 16 144/53 97
05/06/24 07:00 05/06/24 07:00 05/06/24 07:00 05/06/24 07:00 05/06/24 07:00
Cardiovascular:: Regular rate and rhythm
Respiratory:: Bilateral: Coarse
Lung Excursion:: Normal
Abdomen:: Nontender and Soft
Extremity Edema:: +3: Bilateral:
Rosenthal Catheter: Yes
[2024-05-06 12:12] LABS: Glucose - Point of Care 182 mg/dl (70-99)
[2024-05-06] MEDS: PROTONIX 100 IV ×2 (12:43→23:50)
[2024-05-06] MEDS: NOVOLOG FLEXPEN-LOW RESISTANCE 1 UNITS SC (12:43)
[2024-05-06 13:50] LABS: Hemoglobin 7.2 g/dL (13.0-18.0); Mean Corp Hgb Conc. 34.3 g/dL (33.0-37.0); Mean Corpuscular Hgb 28.7 pg (27.0-31.0); Mean Corpuscular Volume 83.7 fL (80.0-94.0); Mean Platelet Volume 10.9 fL (7.4-10.4); Platelet Count 138 10^3/uL (130-400); Red Blood Cell Count 2.51 10^6/uL (4.70-6.10); Red Cell Dist. Width 17.2 % (11.5-14.5)
[2024-05-06] MEDS: ANCEF 5 IV (15:44)
--- NOTE | 2024-05-06 15:51 | W.PN.CD ---
Today's Communication / Plan
-
continue tx of anemia and GI bleed As per GI and hospitalist..
Defer to GI regarding safety of reinitiation of Eliquis. If patient needs to be off Eliquis an extended period of time then would like to see him on a single antiplatelet agent due to history of coronary stenting.
Impression / Plan
-
83 yo male with PMH of CAD, LAD stent 2021, mild/mod , CKD3b. Admitted with severe lab abnormalities including Hgb 6.9, acute renal failure with hyperkalemia, glu >750. We were consulted for new A fib. Eliquis started. Patient with acute anemia
with GIB now and had syncope in bathroom today in this setting.
Acute anemia/GIB/syncope:
-patient hgb dropped from 10.9 to 7.1 05/05/24 today. He walked to the bathroom today and per nursing had syncope. No concerning arrhythmias on monitor. Bloody stool was noted. Eliquis held. 2 units PRBC's administered. Hb back down to 7.2.
endocscopy with gastric and duodenal ulcers. Dudenal ulcer with adherent clot ( injected)
- continue tx per GI
- Eliquis held
- prasugrel is held
- PRBC per GI and hospitlaist
Paroxysmal Afib.
-Echo 04/27: EF 55-60%, mild .
-Back in sinus. Continue coreg.
-also noted are PAC's, PVC's, Wenckebach- no severe bradycardia or advanced conduction disease seen.
-CHADS2-VASC = 5. Eliquis initiated 05/04/24. However, now with acute anemia/GIB held. See above.
Acute renal failure:
-nephrology managing.
-HD new start this admission- to get later today.
Suspected UTI with bacteremia
-Abx per primary team
CAD with hx stenting (2021):
-seems to be stable
-allergic to Plavix and Brilinta per OP chart
-was on prasugrel with plan for single agent Eliquis when able
Aortic stenosis:
-mild, stable
HTN:
-continue coreg and amlodipine
Subjective:
Denies any CP or SOB
Physical Exam
Vital Signs/Labs
Vital Signs
Temp Pulse Resp BP Pulse Ox
97.8 F 58 18 113/47 96
05/06/24 12:35 05/06/24 12:35 05/06/24 12:35 05/06/24 12:35 05/06/24 12:35
05/05/24 05/06/24 05/07/24
06:59 06:59 06:59
Actual Weight 73 kg 72.393 kg
05/06/24 13:42
05/06/24 06:55
PT 16.3 Sec (11.4-14.6) H 04/28/24 03:16
INR 1.26 04/28/24 03:16
Magnesium 1.8 mg/dl (1.6-2.3) 05/01/24 05:59
Physical Exam
Constitutional: No acute distress
Cardiovascular: Rhythm & rate is regular
Respiratory: Wheeze Absent, Rhonchi Absent and Other (Decreased at bases)
GI: Soft and Non tender
Neuro/Psych: Alert
Other: Other (Bilateral lower extremity edema)
Data Reviewed
-
Date of Service: May 06, 2024
Medical Decision Making: Reviewed Test Results
X-Ray/CT/US/MRI/NUC/PET: Report Reviewed by me
Medical Tests (PFT, Pathology etc): Report Reviewed by me
Labs: Labs Reviewed by me
[2024-05-06] MEDS: FLOMAX 0.4 MG PO (17:29)
[2024-05-06 18:01] LABS: Glucose - Point of Care 277 mg/dl (70-99)
[2024-05-06] MEDS: NOVOLOG FLEXPEN-LOW RESISTANCE 3 UNITS SC (18:12)
[2024-05-06] MEDS: NSS (PRESERVATIVE FREE) IV (20:32)
[2024-05-06 21:37] LABS: Glucose - Point of Care 149 mg/dl (70-99)
[2024-05-06] MEDS: LANTUS 0.15 UNITS SC (21:40)
[2024-05-07] VITALS (20 sets, daily range): BP systolic 122–146; BP diastolic 46–54; BMI 24.8
[2024-05-07 00:07] LABS: Hematocrit 20.6 % (39.0-52.0); Hemoglobin 6.8 g/dL (13.0-18.0); Mean Corpuscular Hgb 28.8 pg (27.0-31.0); Mean Corpuscular Volume 87.3 fL (80.0-94.0); Mean Platelet Volume 10.7 fL (7.4-10.4); Platelet Count 149 10^3/uL (130-400); Red Blood Cell Count 2.36 10^6/uL (4.70-6.10); Red Cell Dist. Width 17.2 % (11.5-14.5); White Blood Cell Count 11.6 10^3/uL (4.8-10.8)
--- NOTE | 2024-05-07 00:27 | W.PN.UPDATE ---
Update Note
Progress Note Update
hgb 6.8, bloody stool noted per RN. patient asymptomatic, stable VS. type and screen done, blood consent noted in chart. will order 1 unit of PRBC. GI on board.
--- NOTE | 2024-05-07 00:27 | PTCARENOTE ---
Pt hgb earlier on 05/06 was 7.2 and he went for an EGD which showed non bleeding ulcers. Pt has been having loose black stools with clots during the day. Rechecked CBC at 2300 which resulted with a hgb of 6.8. Provider Betty Browning notified of
these results and pRBCs ordered. Pts VSS.
[2024-05-07] MEDS: NOVOLOG FLEXPEN-LOW RESISTANCE SC ×3 (00:36→13:31)
[2024-05-07 01:13] LABS: Iron 33 ug/dl (49-181)
[2024-05-07 01:36] LABS: Percent Saturation 25 % (20-50); Total Iron Binding Capacity 130 ug/dl (261-462)
--- NOTE | 2024-05-07 01:45 | PTCARENOTE ---
Patient requesting something to aid in sleep this evening. Patient states that he has not been able to sleep all night. Notified EMILY Browning -- stat one time Melatonin ordered and provided to patient. See MAR. Call shaffer in place, will monitor.
[2024-05-07] MEDS: MELATONIN 5 MG PO ×2 (02:23→22:41)
[2024-05-07 05:00] LABS: Folate 12.6 ng/ml (2.76-20); Vitamin B12 929 pg/ml (239-931)
--- NOTE | 2024-05-07 06:28 | PTCARENOTE ---
Pt finished 1 unit of pRBCs at 0534 and tolerated it well. Temp 98.6 oral, BP 146/53, SpO2 97%, RR 18, and HR 73.
[2024-05-07] MEDS: NOVOLOG FLEXPEN SC ×3 (08:12→13:31)
[2024-05-07 08:13] LABS: Glucose - Point of Care 92 mg/dl (70-99)
[2024-05-07] MEDS: NORVASC 10 MG PO (08:17)
[2024-05-07] MEDS: PROSCAR 5 MG PO (08:17)
[2024-05-07] MEDS: OSCAL 500 + D 500 MG PO (08:17)
[2024-05-07] MEDS: COREG 12.5 MG PO ×2 (08:17→21:37)
[2024-05-07] MEDS: OCUVITE SOFTGEL 1 CAP PO ×2 (08:17→21:37)
[2024-05-07 10:36] LABS: Blood Urea Nitrogen 73 mg/dl (9-20); Calcium 7.1 mg/dl (8.4-10.2); Carbon Dioxide 21 mmol/L (22-30); Chloride 101 mmol/L (98-107); Estimated Creatinine Clearance 10 ml/min; Glucose 118 mg/dl (70-99); Potassium 4.7 mmol/L (3.5-5.1); Sodium 133 mmol/L (135-145); eGFR 10.16
[2024-05-07 11:23] LABS: % Basophils 0.2 % (0-2); % Eosinophils 0.4 % (0-6); % Immature Granulocytes 0.9 % (0-0.5); % Lymphocytes 7.9 % (20.5-51.1); % Neutrophils 86.6 % (42.2-75.2); Absolute Eosinophils 0.1 10^3/uL (0-0.7); Absolute Immature Granulocytes 0.1 10^3/uL (0-0.05); Absolute Lymphocytes 0.9 10^3/uL (1.2-3.4); Absolute Monocytes 0.5 10^3/uL (0.1-0.6); Absolute Neutrophils 9.8 10^3/uL (1.4-6.5); Hemoglobin 6.7 g/dL (13.0-18.0); Mean Corp Hgb Conc. 35.3 g/dL (33.0-37.0); Mean Corpuscular Hgb 29.9 pg (27.0-31.0); Mean Corpuscular Volume 84.8 fL (80.0-94.0); Mean Platelet Volume 10.4 fL (7.4-10.4); Nucleated Red Blood Cells % 0 % (-); Platelet Count 147 10^3/uL (130-400); Red Blood Cell Count 2.24 10^6/uL (4.70-6.10); Red Cell Dist. Width 16.1 % (11.5-14.5); White Blood Cell Count 11.3 10^3/uL (4.8-10.8)
--- NOTE | 2024-05-07 11:30 | PTCARENOTE ---
Lab informed this RN of critical hgb=6.7 and critical hct= 19.0. made aware, new orders provided.
[2024-05-07 12:18] LABS: Glucose - Point of Care 110 mg/dl (70-99)
--- NOTE | 2024-05-07 12:32 | VATNOTE ---
PICC order noted. Discused with MD who states MidLine is preferable over PICC. Midline placed without incident. MD to cancel PICC order.
--- NOTE | 2024-05-07 12:47 | W.PN.UPDATE ---
Update Note
Progress Note Update
Attempted on more than 1 occasion to see the patient. Patient was being seen by GI initially and now is going off to CT angiography. Reviewed issues with GI. Patient continues to have GI bleeding. Previous endoscopy showed large ulcer with large
clot that was treated and injected but patient's had further reduction in hemoglobin and requires more PRBCs. Patient remains off Eliquis and off prasugrel due to active bleeding.
Additional management being directed by GI and hospitalist. Plans are being made to transition patient's care from third floor to IMU.
--- NOTE | 2024-05-07 12:49 | W.PN.GI.CBS2 ---
Today's Communication / Plan
-
stat CTA, upgrade IMU, trend Hb, blood transfusions
Assessment / Plan
-
83-year-old male past medical history as below including underlying CKD with new ARISTEO resulting in dialysis Newstart, new onset A-fib now on Eliquis, clot bacteremia secondary to UTI with possible need for PERC nephrostomy tube if no improvement, GI
consulted for melena 05/05 underwent EGD 05/06 found to have a large DU in the bulb (located 6 o'clock abutting the pylorus) with blood clot - unable to remove clot treated with Epi and EndoClot.
Ongoing bleeding today.
Hb 7.2 (1U PRBC) ---> 6.8 (1 UPRBC) --> 6.7 today
Recommendations:
- plan stat CTA
- blood transfusion serial H+H
- upgrade to IMU
- PPI gtt
- hold prasugrel and Eliquis d/w Dr. Pedro ideally would restart in 72 hours from index bleed (05/09) but depends on clinical status
- ? etiology of ulcer - minimal ASA use, needs HP testing in future, could be medically stressed induced
- clear liquid diet
I d/w hospitalist (Dr. Pickard), cardiology (Dr. Pedro), nephrology (Dr. Champion re: CTA/dialysis), IR (Dr. Isidro to alert him of ongoing bleeding suspect GDA), RN Esmer and at bedside Monica
Total Time Spent with Patient (in minutes): 50
Subjective
Subjective
Date of Service: May 07, 2024
ongoing melena drop in Hb
Objective
Data Reviewed
Laboratory Data:
Laboratory Results
05/07/24 09:49
Laboratory Results
PT 16.3 Sec (11.4-14.6) H 04/28/24 03:16
INR 1.26 04/28/24 03:16
Magnesium 1.8 mg/dl (1.6-2.3) 05/01/24 05:59
Total Bilirubin 0.5 mg/dl (0.2-1.3) 05/06/24 06:55
AST 18 U/L (17-59) 05/06/24 06:55
ALT < 10 U/L (0-50) 05/06/24 06:55
Alkaline Phosphatase 205 U/L (38-126) H 05/06/24 06:55
Vital Signs and I&O:
Vital Signs
Temp Pulse Resp BP Pulse Ox
98.3 F 64 17 136/50 97
05/07/24 11:00 05/07/24 11:00 05/07/24 11:00 05/07/24 11:00 05/07/24 11:00
I&O
05/06/24 05/07/24 05/08/24
06:59 06:59 06:59
Intake Total 980 / 980 850 / 850
Output Total 6700 / 6700 3800 / 3800
Balance -5720 / -5720 -2950 / -2950
Physical Exam
Physical Exam
HEENT: Anicteric
Cardiology: Normal Sinus Rhythm
Pulmonary: Clear
GI: Non Distended and Non Tender
--- NOTE | 2024-05-07 13:16 | W.PN.HOSP.TC ---
Today's Communication/Plan
-
CTA/IR intervention to bleeding ulcer
Hold anticoagulants and antiplatelet agents
2 units PRBC, repeat CBC in afternoon
Upgrade to IMU
Assessment / Plan
Assessment / Plan
#UGIB
#PUD
-Status post 6 units of PRBC total this hospital stay
-Developed dark maroon stools after being started on Eliquis this week
-Was started on IV PPI twice daily, n.p.o. status; GI consulted
-EGD showed nonbleeding peptic ulcer and a large duodenal ulcer with clot adherent
-Has had ongoing bleeding despite intervention on EGD, receiving another unit overnight
-Hemoglobin 6.7 this morning, ordered additional 2U PRBC (to make 8 total this hospital stay)
-Currently on IV PPI drip; GI has reached out to IR for embolization/other intervention to the GDA
Plan
-Follow-up stat CTA abdomen
-Planning for IR intervention for bleeding cessation
-Continue with PPI drip, hold anticoagulants
-Repeat CBC in afternoon after blood
#Sepsis due to CAUTI - POA
#Neurogenic bladder with chronic valverde catheter
-Final urine culture showed Klebsiella pneumonia with resistance to only ampicillin
-Planning to transition cefazolin to oral cefuroxime 500 mg daily through 05/10
-Currently on CBI due to purulence upon Valverde placement
-Will need outpatient follow-up with urology; Valverde 22 Fr 3-way on 05/04/24
-Continue finasteride, tamsulosin; continue with Valverde at discharge
#New onset ESRD
#H/O CKD 3B
-Has been initiated on HD every M// with nephrology here
-Had tunneled HD cath placed for long-term dialysis access
-Recent CT showed ongoing obstructive uropathy, now s/p Valverde catheter
-Trend daily BMP, continue with dialysis as scheduled
-Will need follow-up at discharge with nephrology and urology
#New onset Atrial fibrillation
-[id number] score 5, nonvalvular
-Was already on rate controlling agent with home carvedilol
-Was started on Eliquis here though currently held for presumed UGIB as above
-Follow-up EGD today, plan to trial Eliquis again once stable
#Type 2 DM
-Home medications include Lantus, NovoLog, Tresiba; previously on Farxiga
-Had severe hyperglycemia on arrival, suspected to be HHS, now improved
-Blood glucose currently stable on insulin regimen
#CAD s/p PCI
-Had PCI in 2021; Home meds include high intensity statin, beta-elsie, prasugrel
-Due to occurrence of new onset AF, prasugrel was transition to Eliquis
-Eliquis currently held due to GI bleeding as above
#Essential HTN
-Home medications include carvedilol, amlodipine
-No known history of hypertensive systemic diseases
-Blood pressure currently stable
#HLD
-Resume statin for after EGD
#Elevated LFTs
-Likely secondary to infection/sepsis, reduced perfusion
-Resolved
#Toxic metabolic encephalopathy
-Likely multifactorial with sepsis, possible HHS/severe hyperglycemia
-Improved/resolving with correction of issues shown below
-Resolved
Code status: DNR
Diet: CLD
DVT prophylaxis: SCDs
Anticipated Discharge: > 48 hours
Subjective/Interval History
-
Date of Service: May 07, 2024
Seen and examined at the bedside. Overnight received 1 unit of packed red blood cells for hemoglobin 6.8. Repeat hemoglobin this morning 6.7, continues to have dark red/melenic stools. Remains hemodynamically stable and minimally symptomatic.
Spoke with GI team, transfer to IMU initiated
Objective Data
-
Labs:
Laboratory Results
05/07/24 05/07/24 05/07/24
09:49 10:53 17:00
WBC Cancelled 11.3 H Pending
Hgb Cancelled 6.7 L* Pending
Hct Cancelled 19.0 L* Pending
Plt Count Cancelled 147 Pending
Sodium 133 L
Potassium 4.7
Chloride 101
Carbon Dioxide 21 L
BUN 73 H
Creatinine 5.3 H*
Glucose 118 H
Calcium 7.1 L
Vital Signs:
Vital Signs
Temp Pulse Resp BP Pulse Ox
98.3 F 64 17 136/50 97
05/07/24 11:00 05/07/24 11:00 05/07/24 11:00 05/07/24 11:00 05/07/24 11:00
I&O
05/06/24 05/07/24 05/08/24
06:59 06:59 06:59
Intake Total 980 / 980 850 / 850
Output Total 6700 / 6700 3800 / 3800
Balance -5720 / -5720 -2950 / -2950
Review of Systems
-
History Source: Patient
All other systems: Reviewed and negative
Physical Exam
-
General: Well Developed, Well Nourished, No Apparent Distress and Comfortable
HEENT: Normocephalic, Atraumatic, Moist Mucous Membranes and Anicteric
Respiratory: Clear to Auscultation and Non Labored Respirations; Negative Accessory Resp Muscle Use
Cardiac: Regular Rhythm, S1/S2 and Murmur; Negative Rub or Gallop
GI: Soft, Nontender, Nondistended and Normal Bowel Sounds
Rectal: Black and Red
Musculoskeletal: No Clubbing, No Cyanosis and No Edema
Skin: Warm and Dry; Negative Rash
Neuro: AO x 3 and Nonfocal/Grossly Intact
Psych: Calm
Data Reviewed
-
Labs: Labs Reviewed by me, Discussed with Physician, Discussed with Nurse and Discussed with Patient
--- NOTE | 2024-05-07 13:20 | W.PN.URO.CBU ---
Addendum entered and electronically signed by Yang Arce MD 05/07/24 21:57:
Given acute blood loss anemia and GIB, continue HD per Nephrology for ARF.
CT Angio completed today.
Consideration for empiric embolization of GDA per GI.
- Trend Cr
- HD per Nephrology
- 3-way catheter draining clear (decompressed bladder on CT)
- Consideration for left PCN once GIB stabilized - pending renal function response (ureteral stents under GETA less than ideal in actively bleeding patient w/ significant anemia)
D/w IR.
D/w Nephrology.
Original Note:
Today's Communication / Plan
-
Clamp CBI
Maintain 3-way Rosenthal catheter to drainage
HD per Nephrology
CT Angio (per GI) reviewed - moderate left hydronephrosis, right perinephric fluid collection w/ likely compression, bladder DECOMPRESSED w/ Rosenthal
Plan for left PCN tomorrow if Cr does not improve
D/w Nephrology.
D/w IR.
Assessment / Plan
-
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
Klebsiella urosepsis and bacteremia
Significant pyuria secondary to cUTI - resolved
Malpositioned catheter w/ suboptimal drainage - resolved
Bilateral hydroureteronephrosis
Right subcapsular fluid collection
04/27: JUAN ALBERTO => moderate left hydro, mild right hydro
Rosenthal catheter draining well after initial placement - removed 05/03, switched to CIC.
Urology contacted evening 05/03 - STAT CTAP w/o IV contrast recommended.
Patient refused CT imaging until I discussed rationale for imaging and concerns about obstructive uropathy.
05/04: CTAP w/o IV contrast => severe bladder distention, severe bilateral hydroureter.
Possible postrenal contribution to ARISTEO on CKD given CT findings.
Will need maximal bladder drainage given recent h/o pyuria causing intermittent catheter obstructions.
Cr remains elevated
Diagnosis
-
Date of Service: May 07, 2024
-
Patient Diagnosis:
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
Klebsiella urosepsis/bacteremia
Significant pyuria secondary to cUTI
Bilateral hydroureteronephrosis
Subjective
-
Rosenthal catheter draining clear UOP w/ CBI clamped this AM.
Objective
-
Vital Signs
Temp Pulse Resp BP Pulse Ox
98.1 F 68 20 138/48 97
05/07/24 13:23 05/07/24 13:23 05/07/24 13:23 05/07/24 13:23 05/07/24 11:00
Intake and Output
05/06/24 05/07/24 05/08/24
06:59 06:59 06:59
Intake Total 980 / 980 850 / 850 0 / 0
Output Total 6700 / 6700 3800 / 3800
Balance -5720 / -5720 -2950 / -2950 0 / 0
Intake:
Oral fluids 480 / 480 600 / 600
Blood Product Amount Infused ( 500 / 500 250 / 250 0 / 0
mL)
Packed Rbc Leukoreduced Unit 0 / 0
[id number]
Packed Rbc Leukoreduced Unit 250 / 250
[id number]
Packed Rbc Leukoreduced Unit 250 / 250
[id number]
Packed Rbc Leukoreduced Unit 250 / 250
[id number]
Output:
True Urine Output from CBI 6700 / 6700 3800 / 3800
Other:
Number of unmeasured liquid
stools
Rectum 1 1
Laboratory Results
05/07/24 09:49
Physical Exam
-
General - well developed, well nourished, no acute distress
Abdomen - soft, non-tender, +abdominal distention, no localized suprapubic distention noted
Genitalia - normal, 3-way catheter in place
Rectal - normal
Skin - warm & dry with no rash
Extremities - no clubbing, no cyanosis, no edema
Care Review
Data Reviewed
Discussed with: Hospitalist and IRAD
CT Scan: Report Pers Reviewed and Image Pers Reviewed
Total Time Spent with Patient (in minutes): 25
--- NOTE | 2024-05-07 13:26 | W.PN.NEPH.PH ---
Today's Communication / Plan
-
For CTA
Dialysis
Eventual bilateral percutaneous nephrostomy tube
Assessment/Plan
-
Assessment
Hypertension
ARISTEO
DKA
Metabolic acidosis
Lactic acidosis
Hyperkalemia
Hyponatremia
azotemia
Neurogenic bladder
Coronary artery disease
E faecalis urosepsis
Plan:
ARISTEO is likely due to combination of neurogenic bladder in setting of severe DKA
Worsening anemia, despite multiple blood transfusions. with ongoing GI bleed, will undergo CT angiogram at the direction of GI
HD wednesday, orders provided
Urology thinks that nephrostomy tubes bilaterally may be helpful
CBI per , clear urine now
no renal recovery noted and tunneled HD catheter placed on 05/03
abx per ID
high calcium bath for hypocalcemia, check vit D and PTH: Appropriately elevated at 103, vitamin D levels were low
spoke with nursing
-
-
Date of Service: May 07, 2024
CC / HPI / ROS
-
Chief Complaint:
ARISTEO
History of Present Illness:
ARISTEO/Cr now on dialysis support
Hemodynamically stable
CT abd shows bilat hydro and bladder distension 05/05
Ongoing GI bleed, hemoglobin drifting down to 6 point
Review of Systems:
no fevers
does not to be bothered
Labs
-
Labs:
Sodium 133 mmol/L (135-145) L 05/07/24 09:49
Potassium 4.7 mmol/L (3.5-5.1) 05/07/24 09:49
Chloride 101 mmol/L (98-107) 05/07/24 09:49
Carbon Dioxide 21 mmol/L (22-30) L 05/07/24 09:49
BUN 73 mg/dl (9-20) H 05/07/24 09:49
Creatinine 5.3 mg/dL (0.7-1.3) H* 05/07/24 09:49
eGFR 10.16 05/07/24 09:49
Glucose 118 mg/dl (70-99) H 05/07/24 09:49
Calcium 7.1 mg/dl (8.4-10.2) L 05/07/24 09:49
Albumin 2.1 g/dl (3.5-5.0) L 05/06/24 06:55
Physical Exam
-
Vital Signs:
Vital Signs
Temp Pulse Resp BP Pulse Ox
98.1 F 68 20 138/48 97
05/07/24 13:23 05/07/24 13:23 05/07/24 13:23 05/07/24 13:23 05/07/24 11:00
Cardiovascular:: Regular rate and rhythm
Respiratory:: Bilateral: Coarse
Lung Excursion:: Normal
Abdomen:: Nontender and Soft
Extremity Edema:: +2: Bilateral:
Rosenthal Catheter: Yes
Other Findings::
Tunneled IJ catheter
[2024-05-07] MEDS: PROTONIX 100 IV ×2 (13:31→22:57)
[2024-05-07] MEDS: ANCEF 5 IV (13:33)
--- NOTE | 2024-05-07 13:34 | PTCARENOTE ---
Report called to IMU RN. 1 unit PRBC started as ordered. Pt resting comfortably in bed. VSS. No complaints.
--- NOTE | 2024-05-07 14:50 | PTCARENOTE ---
patient received from [facility] in bed; packed red blood cells transfusing via right midline. pt is aaox3 and conversive; no distress. pox 96% on room air. afebrile. sinus rhythm with first degree block on telemetry with rates in 70's. B/p stable. CBI
infusing; cloudy white urine in drainage bag. pt oriented to room. bed in lowest position and call shaffer in reach. see fully documented assessment. continuing to monitor.
--- NOTE | 2024-05-07 15:05 | W.PN.UPDATE ---
Update Note
Progress Note Update
I d/w Dr. Isidro.
No active bleeding on CTA.
Could empirically embolize GDA r/b without active extravasation.
Vital signs are stable.
No bright red blood, some melena today.
Will trend Hb, monitor overt bleeding if ongoing bleeding will need empiric embolization of GDA no need for repeat CTA if in next 24 hours or so.
Updated at bedside, hospitalist, and IMU RN.
[2024-05-07 17:01] LABS: Glucose - Point of Care 183 mg/dl (70-99)
[2024-05-07] MEDS: NOVOLOG FLEXPEN 8 UNITS SC (17:29)
[2024-05-07] MEDS: NOVOLOG FLEXPEN-LOW RESISTANCE 1 UNITS SC (17:30)
[2024-05-07] MEDS: FLOMAX 0.4 MG PO (17:31)
[2024-05-07] MEDS: LIPITOR 80 MG PO (17:31)
[2024-05-07 21:40] LABS: Glucose - Point of Care 99 mg/dl (70-99)
[2024-05-07] MEDS: LANTUS 0.07 UNITS SC (22:41)
[2024-05-08] VITALS (28 sets, daily range): BP systolic 116–163; BP diastolic 44–101; BMI 25.5
[2024-05-08 00:38] LABS: Hematocrit 27.3 % (39.0-52.0); Hemoglobin 9.7 g/dL (13.0-18.0)
--- NOTE | 2024-05-08 04:39 | PTCARENOTE ---
Assumed care of Pt from day RN. PRBC currently infusing, Pt appears o be tolerating well. Repeat H&H 9.7.3. Pt having tearful moments with this RN. Pt stating he is 'overwhelmed' and 'I do not know what I should be doing or If I am doing things
right'. Emotional support given. Education given and questions answered to the best of this RN's ability. Pt asking for melatonin for sleep, saying he has been having trouble sleeping. Order obtained from karin TONG. Throughout shift additional
emotional support given. Call shaffer within reach. Assessment care and vitals as charted.
--- NOTE | 2024-05-08 05:32 | W.PN.GI.CBS2 ---
Today's Communication / Plan
-
Please see assessment and plan for details.
Assessment / Plan
-
1. GI bleed : Secondary to large duodenal ulcer with clot, unable to be removed, status post epi and EndoClot, with likely 1 episode of recurrent rebleeding with negative CT angiogram, though has remained stable since then, with hemoglobin that
responded appropriately to transfusion, brown bowel mode overnight and stable hemodynamics. At this point we will continue clear liquid diet and IV PPI for 24 more hours. If signs of significant rebleeding then IR for empiric GDA embolization. If
remains stable then can start to advance diet tomorrow. Antiplatelet and anticoagulation is difficult clinical scenario given A-fib and coronary disease, though stent more than a year ago, in sinus rhythm now. Given adherent clot and unable to
visualize would continue to hold for now, likely initially restart single antiplatelet at some point and then restart anticoagulation in 1 week. May consider second look EGD in the next few days for better visualization and risk stratification.
Subjective
Subjective
Date of Service: May 08, 2024
Patient feeling well this morning, states had brown bowel movement overnight, hemodynamically stable, no abdominal pain, nausea or vomiting.
Objective
Data Reviewed
Laboratory Data:
Laboratory Results
PT 16.3 Sec (11.4-14.6) H 04/28/24 03:16
INR 1.26 04/28/24 03:16
Magnesium 1.8 mg/dl (1.6-2.3) 05/01/24 05:59
Total Bilirubin 0.5 mg/dl (0.2-1.3) 05/06/24 06:55
AST 18 U/L (17-59) 05/06/24 06:55
ALT < 10 U/L (0-50) 05/06/24 06:55
Alkaline Phosphatase 205 U/L (38-126) H 05/06/24 06:55
Vital Signs and I&O:
Vital Signs
Temp Pulse Resp BP Pulse Ox
98.7 F 62 15 120/53 95
05/08/24 04:34 05/08/24 04:00 05/08/24 04:00 05/08/24 04:00 05/08/24 04:00
I&O
05/06/24 05/07/24 05/08/24
06:59 06:59 06:59
Intake Total 980 / 980 850 / 850 2400 / 2400
Output Total 6700 / 6700 3800 / 3800 350 / 350
Balance -5720 / -5720 -2950 / -2950 2049
Physical Exam
Physical Exam
General: NAD
Abdomen: normal bowel sounds, soft, no tenderness, no masses or bruits, no ascites
[2024-05-08 06:40] LABS: % Basophils 0.4 % (0-2); % Eosinophils 0.5 % (0-6); % Immature Granulocytes 0.8 % (0-0.5); % Lymphocytes 5.8 % (20.5-51.1); % Neutrophils 87.5 % (42.2-75.2); Absolute Eosinophils 0.1 10^3/uL (0-0.7); Absolute Immature Granulocytes 0.1 10^3/uL (0-0.05); Absolute Lymphocytes 0.7 10^3/uL (1.2-3.4); Absolute Monocytes 0.6 10^3/uL (0.1-0.6); Absolute Neutrophils 9.9 10^3/uL (1.4-6.5); Hematocrit 28.5 % (39.0-52.0); Hemoglobin 9.5 g/dL (13.0-18.0); Mean Corp Hgb Conc. 33.3 g/dL (33.0-37.0); Mean Corpuscular Hgb 28.4 pg (27.0-31.0); Mean Corpuscular Volume 85.3 fL (80.0-94.0); Mean Platelet Volume 10.7 fL (7.4-10.4); Nucleated Red Blood Cells % 0 % (-); Platelet Count 176 10^3/uL (130-400); Red Blood Cell Count 3.34 10^6/uL (4.70-6.10); Red Cell Dist. Width 16.2 % (11.5-14.5); White Blood Cell Count 11.4 10^3/uL (4.8-10.8)
[2024-05-08 07:18] LABS: Blood Urea Nitrogen 74 mg/dl (9-20); Calcium 6.9 mg/dl (8.4-10.2); Carbon Dioxide 22 mmol/L (22-30); Chloride 100 mmol/L (98-107); Estimated Creatinine Clearance 8 ml/min; Glucose 52 mg/dl (70-99); Potassium 4.5 mmol/L (3.5-5.1); Sodium 135 mmol/L (135-145); eGFR 8.58
[2024-05-08 07:45] LABS: Glucose - Point of Care 60 mg/dl (70-99)
[2024-05-08] MEDS: NOVOLOG FLEXPEN SC (08:02)
[2024-05-08 08:12] LABS: Glucose - Point of Care 73 mg/dl (70-99)
--- NOTE | 2024-05-08 09:05 | PN.DE.MGMTRT ---
Insulin Management
- -
05/08/2024: Diabetes Management F/U:
Patient brought to ED with change of mental status, found to be in DKA. PMH CAD, HTN, diabetes, ckd 3b, UTI 1 month ago. Prior to admission was taking Tresiba 10 units @ hs. A1C on 03/22/24 was 8.5%--> A1C 9.6% this admission. Cr 6.3, eGFR
8.7-->5.3, eGFR 10.16
Glucose Patient was managed on insulin infusion and transitioned off on 04/28 to SQ Insulin.
Patient is awake and alert, on HD at the moment, very unpleasant, using choice words during interaction, states he wants to take a nap.
Pt was started on clear liquid diet on 05/06, glucose trend low/normal with recurrent episodes of hypoglycemia, as low as 54(V) this AM.
05/08 premeal range 60 to 151. Will hold all scheduled insulin doses for today.
Cont low corrective insulin while on clear liquid diet. Plan for NPO after MN.
Will reassess in AM and consider resuming standing insulin regimen if diet has been advanced.
Discussed with nurse and requested a TT with morgan time blood sugar.
Diabetes History
- -
Type of Diabetes: 2 requiring insulin
Pre-Admission Diabetes Regimen
05/07/24 05/08/24
09:49 06:08
Creatinine 5.3 H* 6.1 H*
Lab Results
Hemoglobin A1c 9.6 % (4.0-5.6) H 04/27/24 06:06
Insulin Pump Settings
IP Diabetes Regimen
05/07/24 05/07/24 05/07/24
09:49 12:17 17:00
Glucose 118 H
POC Glucose 110 H 183 H
05/07/24 05/08/24 05/08/24
21:39 06:08 07:33
Glucose 52 L*
POC Glucose 99 60 L
05/08/24
07:51
Glucose
POC Glucose 73
Meal type: Dinner
Meal type: Lunch
Meal type: Breakfast
Amount consumed: 100%
Amount consumed: 100%
Amount consumed: 100%
Patient Education
[2024-05-08] MEDS: NOVOLOG FLEXPEN-LOW RESISTANCE SC ×2 (09:10→12:54)
[2024-05-08] MEDS: PROTONIX 100 IV ×2 (09:19→18:00)
[2024-05-08] MEDS: FLEXBUMIN 25% FOR HEMODIALYSIS 12.5 GRAMS IV ×2 (09:23→10:25)
[2024-05-08] MEDS: RETACRIT 10000 UNITS IV (09:23)
[2024-05-08] MEDS: FERRLECIT 125 MG IV (09:23)
[2024-05-08 10:15] LABS: Glucose - Point of Care 157 mg/dl (70-99)
--- NOTE | 2024-05-08 10:26 | W.PN.CD ---
Addendum entered and electronically signed by Abdullahi Caldwell MD 05/08/24 13:38:
I saw and examined the patient.
The [employer]PERVIS[employer]'s note was reviewed and I agree with the note.
Comment: Off oral anticoagulant. Off antiplatelet. I favor initiation of single agent Eliquis only when OK with GI. Currently in sinus.
Original Note:
Today's Communication / Plan
-
-continue Coreg, amlodipine, atorvastatin. Follow telemetry.
-OAC remains on hold due to anemia and GI bleeding. Ultimate plan will be for single agent Eliquis when safe. Timing TBD.
Impression / Plan
-
83 y/o male with PMH of CAD, LAD stent 2021, mild/mod , CKD3b. Admitted with severe lab abnormalities including Hgb 6.9, acute renal failure with hyperkalemia, glucose >750. We were consulted for new A fib. Eliquis started. Patient with acute
anemia with GIB, syncope.
Acute anemia/GIB/syncope:
-patient hgb dropped from 10.9 to 7.1 05/05/24. He had syncope that day per nursing. No concerning arrhythmias on monitor. Bloody stool was noted. Eliquis held. 2 units PRBC's administered. Later, hgb back down to 7.2. Endoscopy with gastric and
duodenal ulcers. Duodenal ulcer with adherent clot (injected). He then had bleeding again and hgb down to 6.7 requiring more blood products. Negative CTA. If rebleeds, plan is for IR for empiric GDA embolization. Per GI, plan is clear liquid diet
and IV PPI and monitoring and continue to hold OAC/AP at this time.
Paroxysmal Afib.
-Echo 04/27: EF 55-60%, mild .
-Back in sinus. Continue Coreg.
-also noted are PAC's, PVC's, Wenckebach- no severe bradycardia or advanced conduction disease seen.
-CHADS2-VASC = 5. Eliquis initiated 05/04/24. However, now with acute anemia/GIB held. See above.
Acute renal failure:
-nephrology managing.
-HD new start this admission- currently getting.
Suspected UTI with bacteremia:
-Abx per primary team
CAD with hx stenting (2021):
-seems to be stable. Denies any CP.
-allergic to Plavix and Brilinta per OP chart
-was on prasugrel with plan for single agent Eliquis when able
Aortic stenosis:
-mild, stable
HTN:
-continue Coreg and amlodipine
Subjective:
Patient denies any CP or SOB.
Physical Exam
Vital Signs/Labs
Vital Signs
Temp Pulse Resp BP Pulse Ox
98.2 F 63 13 142/53 97
05/08/24 07:28 05/08/24 10:15 05/08/24 10:15 05/08/24 10:15 05/08/24 10:15
05/07/24 05/08/24 05/09/24
06:59 06:59 06:59
Actual Weight 69.581 kg 71.5 kg
05/08/24 06:08
PT 16.3 Sec (11.4-14.6) H 04/28/24 03:16
INR 1.26 04/28/24 03:16
Magnesium 1.8 mg/dl (1.6-2.3) 05/01/24 05:59
Physical Exam
Constitutional: No acute distress
EENT: Anicteric
Cardiovascular: Rhythm & rate is regular
Respiratory: Respiratory effort normal and Lungs clear to auscul.
Neuro/Psych: AO x 3
Data Reviewed
-
Date of Service: May 08, 2024
EKG: Other (tele SR)
Labs: Labs Reviewed by me
--- NOTE | 2024-05-08 10:27 | PTCARENOTE ---
pt aaox3. forgetful at times. on HD now. protonix gtt running. cbi running draining clear.
--- NOTE | 2024-05-08 10:49 | W.PN.ID1 ---
Date of Service
Date of Service: May 08, 2024
Today's Communication
Continue cefazolin for now.
Assessment / Plan
# Klebsiella complicated UTI
# Klebsiella bacteremia
# Leukocytosis trending down
# Obstructive uropathy
# Atonic bladder with chronic valverde
# ARISTEO on CKD now on HD
- Renal US with bilateral hydronephrosis L>R
- 05/04/24 CT a/p severe bilateral hydroureter. No stones. Severe bladder distention to above level of umbilicus.
- Appreciate Urology. CBI to clear to clear pyuria and bladder decompression; if renal fxn does not improve, may need Perc neph.
- Repeat Ucx negative
-05/07 CT a/p; right renal subcapsular hematoma vs seroma vs urinoma
- Continue cefazolin 1g IV q24 (d12) for now.
# UGI bleed
# Blood loss anemia
- s/p EGD: large duodenal ulcer with clots
Chief Complaint
-: UTI and Bacteremia
Subjective / Review of Systems
Feels OK. No specific complaints.
Vital Signs / Physical Exam
Vital Signs
Vital Signs
Temp Pulse Resp BP Pulse Ox
98.2 F 63 13 142/53 97
05/08/24 07:28 05/08/24 10:15 05/08/24 10:15 05/08/24 10:15 05/08/24 10:15
Physical Exam
Constitutional: Comfortable
Cardiovascular: Regular Rate
Pulmonary: Clear
Gastrointestinal: Soft, Non Tender and Non Distended
Genito-Urinary: Valverde and Clear Urine
Extremities: Negative Edema
Neurological: Awake and Alert
Objective Data
Lab Data
Lab Results
05/08/24 06:08
PT 16.3 Sec (11.4-14.6) H 04/28/24 03:16
INR 1.26 04/28/24 03:16
Estimated Creat Clear 8 ml/min 05/08/24 06:08
Lactic Acid 0.7 mmol/L (0.7-2.0) 04/28/24 12:05
Total Bilirubin 0.5 mg/dl (0.2-1.3) 05/06/24 06:55
AST 18 U/L (17-59) 05/06/24 06:55
ALT < 10 U/L (0-50) 05/06/24 06:55
Alkaline Phosphatase 205 U/L (38-126) H 05/06/24 06:55
Most recent labs reviewed.
Micro Results:
05/04/24 13:55 Urine Culture - Final
Urine NO GROWTH
04/29/24 09:09 Blood Culture - Final
Blood/Venous No Growth - Final Report
04/27/24 14:16 Blood Culture - Final
Blood/Venous No Growth - Final Report
04/26/24 15:46 Urine Culture - Final
Urine Klebsiella pneumoniae
04/26/24 19:21 Blood Culture - Final
Blood/Venous Klebsiella pneumoniae
Gram Stain - Final
04/26/24 15:02 Blood Culture - Final
Blood/Venous Klebsiella pneumoniae
Gram Stain - Final
04/27/24 Renal US: Bilateral hydronephrosis, moderate left and mild right.
05/04/24 CT a/p wo IV contrast: Severe bilateral hydroureter. No obstructing radiopaque stones are noted. Possible subcapsular right renal fluid collection. Limited evaluation without IV contrast. Renal masses and masses of the collecting system
and bladder cannot be excluded without IV contrast. Mild prostate hypertrophy.
05/07/24 CTa/p: 1. Negative for active gastrointestinal hemorrhage. As above, there is gastric and duodenal mucosal hyperenhancement, but no active bleeding is identified. Patient's known duodenal ulcer is not well seen at CT.
2. Persistent moderate left hydronephrosis and persistent bilateral hydroureter. As above, there is abnormal appearance of the right kidney with subcapsular collection which nearly completely surrounds the kidney. There are associated compressive
changes of the right kidney with diminished enhancement and misshapen cortex. There is mild prominence of the right renal collecting system, no marked hydronephrosis. Collection shows greater than simple fluid attenuation and could represent old
hematoma/seroma. Urinoma is also a diagnostic consideration. Presence or absence of superimposed infection cannot be determined by this examination.
3. Valverde catheter in position within decompressed urinary bladder. Diffuse marked urinary bladder wall thickening related to either chronic outlet obstruction or neurogenic bladder.
--- NOTE | 2024-05-08 11:05 | W.PN.NEPH.HD ---
Assessment
-
pt seen during HD
vitals stable
UF as tolerates
CVC functions well
no heparin, h/h stable
left PCN per
high dose EWELINA
Progress Note - Hemodialysis
-
Date of Service: May 08, 2024
Duration: 30 minutes and 3 hours
Potassium Bath: 3
Calcium Bath: 2.5
Opti-Dialyzer: 160
Ultrafiltration: Other (2.5-3kg)
Blood Flow: 400
Dialysate Flow: 600
Heparin: no
EPO: 06320+IV fe
[2024-05-08] MEDS: HEPARIN 3900 UNITS INTRACATH (11:36)
[2024-05-08 12:17] LABS: Glucose - Point of Care 131 mg/dl (70-99)
[2024-05-08] MEDS: NORVASC 10 MG PO (12:55)
[2024-05-08] MEDS: OSCAL 500 + D 500 MG PO (12:55)
[2024-05-08] MEDS: OCUVITE SOFTGEL 1 CAP PO ×2 (12:55→20:37)
[2024-05-08] MEDS: PROSCAR 5 MG PO (12:56)
[2024-05-08] MEDS: COREG 12.5 MG PO ×2 (12:56→20:37)
--- NOTE | 2024-05-08 13:59 | W.PN.HOSP.TC ---
Addendum entered and electronically signed by Tammi Alejandro MD 05/08/24 17:36:
I saw and evaluated the patient. I reviewed the resident�s note and agree with findings and plan as documented in the resident�s note except for changes in my documentation
83-year-old presented to the hospital with TME
CVS: S1-S2 normal
Chest: CTA B/L
Abdomen: Soft, NT / Bowel sounds present
Extremities: No edema
Echo 04/27/2024-EF 55 to 60%. Wall motion consistent with conduction abnormality. Normal RV size and function. Mild . Mild TR. Pulmonary artery pressure 30 to 35 mmHg.
# Upper GI bleed-peptic ulcer disease
EGD showed nonbleeding peptic ulcer with a large duodenal ulcer with adherent clot
Total 8 units of packed red blood cells this admission
Continue PPI
If has more bleeding may need IR for embolization
# Sepsis secondary to catheter related UTI-present on admission
Neurogenic bladder with chronic Valverde catheter change in the ER
05/04/24 CT a/p severe bilateral hydroureter. No stones. Severe bladder distention to above level of umbilicus.
05/07 CT a/p; right renal subcapsular hematoma vs seroma vs urinoma
Cultures with Klebsiella currently on cefazolin
Started on CBI secondary to purulence
Urology following
Interventional radiology consulted for percutaneous nephrostomy for the perinephric collection. Patient went to IR and refused the procedure
# End-stage renal disease at this point-started on dialysis Wednesday. Has a tunneled HD catheter placed
# New onset atrial fibrillation-plan on anticoagulation when stable from GI stand point
# HHNK-was on Tresiba as outpatient held was placed on insulin drip. NovoLog insulin on hold. Morning blood sugars low cautiously watch sugars with 12 units of Lantus. Hemoglobin A1c was 9.6 on admission. Unclear if is reliable with anemia.
# Lactic acidosis-resolved
# ZAS-[id number]
# Hyponatremia
# Anemia acute blood loss anemia and anemia of chronic disease
# Elevated LFTs- Improving. Possible shock liver secondary to hypotension
# Vitamin D deficiency-replace
# Secondary hyperparathyroidism
# Essential hypertension-continue Coreg and amlodipine
# Hyperlipidemia-continue statin
# Coronary artery disease with stent 2021. Continue high intensity statin, beta-elsie. Prasugrel stopped when patient was started on Eliquis
# Indeterminate 1.4 cm left adrenal nodule
# DVT prophylaxis- SCDs
# CODE STATUS-DNR
Discussed with dialysis nursing at bedside
Discussed with patient sister on the phone
Part of this note was created using voice recognition system. Occasional wrong word or��sound alike� substitutions may have inadvertently occurred due to the inherent limitations of voice recognition software. If noted kindly bring it to my
attention for correction.
Original Note:
Today's Communication/Plan
-
Continue cefazolin for now
single agent Eliquis only when OK with GI
If remains stable then can start to advance diet tomorrow
Assessment / Plan
Assessment / Plan
83-year-old male with known past medical history of essential hypertension currently on multiple drugs, insulin-dependent diabetes, neurogenic/atonic bladder with chronic Valverde catheter, coronary artery disease/PA 3 years ago s/p cardiac stenting
and currently on prasugrel and CKD 3B presented with his due to confusion and lethargy for few days. Hb dropped after started on eliquis for new onset a fib.
#UGIB
#PUD
-Status post 8 units of PRBC total this hospital stay
-Developed dark maroon stools after being started on Eliquis last week
-Was started on IV PPI drip
-EGD showed nonbleeding peptic ulcer and a large duodenal ulcer with clot adherent
-Currently on IV PPI drip; GI has reached out to IR for embolization/other intervention to the GDA
-H&H in the afternoon
-continue clear liquid diet for now; monitor in 24 hrs to consider advancing the diet
-per GI hold anticoagulants; cardio recommend to start single agent eliquis when ok by GI
#Sepsis due to CAUTI - POA
#Neurogenic bladder with chronic valverde catheter
-urine culture showed Klebsiella pneumonia
-Planning to transition cefazolin to oral cefuroxime 500 mg daily through 05/10;cefazolin 1g IV q24 (d12)
-Currently on CBI due to purulence upon Valverde placement
-Will need outpatient follow-up with urology; Valverde 22 Fr 3-way on 05/04/24
-Continue finasteride, tamsulosin; continue with Valverde at discharge
#New onset ESRD
#H/O CKD 3B
-Has been initiated on HD every // with nephrology here; HD today
-Had tunneled HD cath placed for long-term dialysis access
-Recent CT showed ongoing obstructive uropathy, now s/p Valverde catheter
-Trend daily BMP, continue with dialysis as scheduled
-Will need follow-up at discharge with nephrology and urology
#New onset Atrial fibrillation
-[id number] score 5, nonvalvular
-Was already on rate controlling agent with home carvedilol
-Was started on Eliquis here though currently held for presumed UGIB as above
-cardio recommend to start single agent eliquis when ok by GI
#Type 2 DM
-Home medications include Lantus, NovoLog, Tresiba; previously on Farxiga
-Had severe hyperglycemia on arrival, suspected to be HHS, now improved
-Blood glucose currently stable on insulin regimen
#CAD s/p PCI
-Had PCI in 2021; Home meds include high intensity statin, beta-elsie, prasugrel
-Due to occurrence of new onset AF, prasugrel was transition to Eliquis
-Eliquis currently held due to GI bleeding as above
#Essential HTN
-Home medications include carvedilol, amlodipine
-No known history of hypertensive systemic diseases
-Blood pressure currently stable
#HLD
-Resume statin for after EGD
#Elevated LFTs
-Likely secondary to infection/sepsis, reduced perfusion
-Resolved
#Toxic metabolic encephalopathy
-Likely multifactorial with sepsis, possible HHS/severe hyperglycemia
-Improved/resolving with correction of issues shown below
-Resolved
Code status: DNR
Diet: CLD
DVT prophylaxis: SCDs
Anticipated Discharge: 24 - 48 hours
Subjective/Interval History
-
Date of Service: May 08, 2024
Seen and examined at the bedside. offers no new complaints. upset because of medical staff coming to check on him frequently.
Objective Data
-
Labs:
Laboratory Results
05/08/24 05/08/24
06:08 14:00
WBC 11.4 H
Hgb 9.5 L Pending
Hct 28.5 L Pending
Plt Count 176
Sodium 135
Potassium 4.5
Chloride 100
Carbon Dioxide 22
BUN 74 H
Creatinine 6.1 H*
Glucose 52 L*
Calcium 6.9 L*
Vital Signs:
Vital Signs
Temp Pulse Resp BP Pulse Ox
98.1 F 76 17 147/52 96
05/08/24 11:44 05/08/24 12:56 05/08/24 12:00 05/08/24 12:56 05/08/24 12:00
I&O
05/07/24 05/08/24 05/09/24
06:59 06:59 06:59
Intake Total 850 / 850 2580 / 2580
Output Total 3800 / 3800 500 / 500
Balance -2950 / -2950 2079 / 2079
Review of Systems
-
History Source: Patient
All other systems: Reviewed and negative
Physical Exam
-
General: Well Developed, Well Nourished, No Apparent Distress and Comfortable
HEENT: Normocephalic, Atraumatic, Moist Mucous Membranes and Anicteric
Respiratory: Clear to Auscultation and Non Labored Respirations; Negative Accessory Resp Muscle Use
Cardiac: Regular Rhythm, S1/S2 and Murmur; Negative Rub or Gallop
GI: Soft, Nontender, Nondistended and Normal Bowel Sounds
Rectal: Black and Red
Musculoskeletal: No Clubbing, No Cyanosis and No Edema
Skin: Warm and Dry; Negative Rash
Neuro: AO x 3 and Nonfocal/Grossly Intact
Psych: Calm
Data Reviewed
-
Labs: Labs Reviewed by me, Discussed with Physician and Discussed with Patient
[2024-05-08 14:45] LABS: Hematocrit 27.5 % (39.0-52.0); Hemoglobin 9.3 g/dL (13.0-18.0)
--- NOTE | 2024-05-08 14:51 | PTCARENOTE ---
Dr. Arce and Dr. Peterson made aware that patient is refusing to go to [facility] for PCN placement and that patient stated 'I don't want to do anything anymore'. Care ongoing at this time.
--- NOTE | 2024-05-08 15:08 | W.PN.UPDATE ---
Update Note
Progress Note Update
- Pt declined L PCN this afternoon
- Will re-evaluate tomorrow.
--- NOTE | 2024-05-08 15:24 | CM ---
CM reviewed chart and pt remains in IMU
Pt had tunnel cath placed on 05/03 and continues with HD
Watch uro plan for L. PCN
Update to [facility] admissions
Plan remains for [facility] SN[facility] with HD on dc
Discharge Disposition- [facility] with HD
--- NOTE | 2024-05-08 15:55 | W.PN.UPDATE ---
Update Note
Progress Note Update
Per discussion w/ patient, Nephrology, and IR - left PCN placement planned today (CT Angio w/ perinephric fluid on right side w/ likely difficult access, left hydronephrosis noted).
Patient went to IR and refused PCN placement - 'doesn't want to do anything anymore.'
Plan
- Maintain Rosenthal catheter to drainage (CBI d/c'd)
- Continue HD per Nephrology
- Discussed plan of care w/ Dr. Farah
[2024-05-08] MEDS: ANCEF 5 IV (16:03)
[2024-05-08 17:45] LABS: Glucose - Point of Care 221 mg/dl (70-99)
--- NOTE | 2024-05-08 17:50 | PTCARENOTE ---
Patient AOx3. Patient on RA with SpO2 greater than 92%. VSS. Protonix gtt running per order. Black stool. CBI running with clear urine. Patient tolerating clear liquid diet. HD completed today. Patients at bedside throughout shift. Call shaffer
within reach, bed in lowest position, bed wheels locked.
[2024-05-08] MEDS: FLOMAX 0.4 MG PO (18:00)
[2024-05-08] MEDS: LIPITOR 80 MG PO (18:00)
[2024-05-08] MEDS: NOVOLOG FLEXPEN-LOW RESISTANCE 2 UNITS SC (18:01)
--- NOTE | 2024-05-08 20:53 | PTCARENOTE ---
pt received from previous RN. Pt AAOx3, took HS pills whole with water. NSR on monitor with 1st degree. B/L UE edema +2. Arms elevated. Pt on RA. Sat 95%. CBI running, clear urine. Rosenthal care done by this RN. Call light in reach. Safe environment
maintained.
[2024-05-08] MEDS: MELATONIN 5 MG PO (22:21)
[2024-05-08 22:43] LABS: Glucose - Point of Care 264 mg/dl (70-99)
[2024-05-09] VITALS (14 sets, daily range): BP systolic 111–145; BP diastolic 41–105; PULSE 64; O2SAT 96; BMI 24.8
[2024-05-09] MEDS: PROTONIX 100 IV ×3 (03:24→20:17)
[2024-05-09 03:31] LABS: Glucose - Point of Care 271 mg/dl (70-99)
[2024-05-09 05:33] LABS: % Basophils 0.3 % (0-2); % Immature Granulocytes 0.9 % (0-0.5); % Lymphocytes 9.4 % (20.5-51.1); % Monocytes 5.4 % (1.7-9.3); Absolute Eosinophils 0.1 10^3/uL (0-0.7); Absolute Immature Granulocytes 0.1 10^3/uL (0-0.05); Absolute Lymphocytes 0.8 10^3/uL (1.2-3.4); Absolute Monocytes 0.5 10^3/uL (0.1-0.6); Absolute Neutrophils 7.2 10^3/uL (1.4-6.5); Hematocrit 26.5 % (39.0-52.0); Hemoglobin 9.2 g/dL (13.0-18.0); Mean Corp Hgb Conc. 34.7 g/dL (33.0-37.0); Mean Corpuscular Hgb 29.6 pg (27.0-31.0); Mean Corpuscular Volume 85.2 fL (80.0-94.0); Mean Platelet Volume 10.4 fL (7.4-10.4); Nucleated Red Blood Cells % 0 % (-); Platelet Count 126 10^3/uL (130-400); Red Blood Cell Count 3.11 10^6/uL (4.70-6.10); Red Cell Dist. Width 15.9 % (11.5-14.5); White Blood Cell Count 8.7 10^3/uL (4.8-10.8)
[2024-05-09 05:44] LABS: Blood Urea Nitrogen 44 mg/dl (9-20); Calcium 7.1 mg/dl (8.4-10.2); Carbon Dioxide 25 mmol/L (22-30); Chloride 97 mmol/L (98-107); Estimated Creatinine Clearance 12 ml/min; Glucose 243 mg/dl (70-99); Magnesium 1.8 mg/dl (1.6-2.3); Potassium 4.8 mmol/L (3.5-5.1); Sodium 131 mmol/L (135-145)
--- NOTE | 2024-05-09 05:44 | W.PN.GI.CBS2 ---
Today's Communication / Plan
-
Please see assessment and plan for details.
Assessment / Plan
-
1. GI bleed : Secondary to large duodenal ulcer with clot, unable to be removed, status post epi and EndoClot, with likely 1 episode of recurrent rebleeding with negative CT angiogram, though has remained stable since then, with hemoglobin that
responded appropriately to transfusion, brown bowel movement overnight and stable hemodynamics. Since has been stable for about 48 hours is okay to advance diet from a GI standpoint, currently n.p.o. for possible nephrostomy tube. If signs of
significant rebleeding then IR for empiric GDA embolization. Antiplatelet and anticoagulation is difficult clinical scenario given A-fib and coronary disease, though stent more than a year ago, in sinus rhythm now. Given adherent clot and unable
to visualize would continue to hold for now. May consider second look EGD in the next few days for better visualization and risk stratification, at a minimum would wait 1 week prior to restarting..
Subjective
Subjective
Date of Service: May 09, 2024
Patient feeling okay, no significant abdominal pain, or vomiting. He had 2 small brown bowel movements overnight.
Objective
Data Reviewed
Laboratory Data:
Laboratory Results
05/09/24 04:47
Laboratory Results
PT 16.3 Sec (11.4-14.6) H 04/28/24 03:16
INR 1.26 04/28/24 03:16
Magnesium 1.8 mg/dl (1.6-2.3) 05/01/24 05:59
Total Bilirubin 0.5 mg/dl (0.2-1.3) 05/06/24 06:55
AST 18 U/L (17-59) 05/06/24 06:55
ALT < 10 U/L (0-50) 05/06/24 06:55
Alkaline Phosphatase 205 U/L (38-126) H 05/06/24 06:55
Vital Signs and I&O:
Vital Signs
Temp Pulse Resp BP Pulse Ox
98.1 F 69 16 132/55 93
05/09/24 03:20 05/09/24 04:00 05/09/24 04:00 05/09/24 04:00 05/09/24 04:00
I&O
05/07/24 05/08/24 05/09/24
06:59 06:59 06:59
Intake Total 850 / 850 2580 / 2580
Output Total 3800 / 3800 500 / 500 850 / 850
Balance -2950 / -2950 2080 / 2080 -850 / -850
Physical Exam
Physical Exam
General: NAD
Abdomen: normal bowel sounds, soft, no tenderness, no masses or bruits, no ascites
--- NOTE | 2024-05-09 06:45 | PTCARENOTE ---
verbal order received to d/c CBI. No current order active for CBI to thus d/c. Verbal order placed in chart. pt disconnected from CBI.
--- NOTE | 2024-05-09 07:17 | W.PN.HOSP.TC ---
Addendum entered and electronically signed by Tammi Alejandro MD 05/10/24 08:16:
acute blood loss anemia exacerbated by eliquis
Addendum entered and electronically signed by Tammi Alejandro MD 05/09/24 16:42:
I saw and evaluated the patient. I reviewed the resident�s note and agree with findings and plan as documented in the resident�s note.
I saw and evaluated the patient. I reviewed the resident�s note and agree with findings and plan as documented in the resident�s note except for changes in my documentation
83-year-old presented to the hospital with TME
CVS: S1-S2 normal
Chest: CTA B/L
Abdomen: Soft, No epigastric tenderness noted bowel sounds present
Extremities: No edema
Echo 04/27/2024-EF 55 to 60%. Wall motion consistent with conduction abnormality. Normal RV size and function. Mild . Mild TR. Pulmonary artery pressure 30 to 35 mmHg.
# Patient has stomach spasm after he started a diet. Maalox and Mylicon given. Continue PPI. Watch patient
# Upper GI bleed-peptic ulcer disease
EGD showed nonbleeding peptic ulcer with a large duodenal ulcer with adherent clot
Total 8 units of packed red blood cells this admission
Continue PPI
Hemoglobin stable. Started on a diet today
If has more bleeding may need IR for embolization
# Sepsis secondary to catheter related UTI-present on admission
Neurogenic bladder with chronic Valverde catheter change in the ER
05/04/24 CT a/p severe bilateral hydroureter. No stones. Severe bladder distention to above level of umbilicus.
05/07 CT a/p; right renal subcapsular hematoma vs seroma vs urinoma
Cultures with Klebsiella currently on cefazolin
Started on CBI secondary to purulence
Urology following
Interventional radiology consulted for percutaneous nephrostomy for the perinephric collection.
IR reviewed the patient's imaging. Left hydronephrosis improved since 05/07/2024. Likely related to Valverde decompression. Left PCN would not help his renal function and cause more problems therefore not advised. This was discussed with urology as
well.
# End-stage renal disease at this point-started on dialysis Wednesday. Has a tunneled HD catheter placed
# New onset atrial fibrillation-plan on anticoagulation when stable from GI stand point ( 1 week from now)
# HHNK-was on Tresiba as outpatient held was placed on insulin drip. NovoLog insulin on hold. Morning blood sugars elevated so changed to Lantus 12 in am Hemoglobin A1c was 9.6 on admission. Unclear if is reliable with anemia.
# Lactic acidosis-resolved
# UAS-enaszulocrbnlc-juvedchz
# Hyponatremia
# Anemia acute blood loss anemia and anemia of chronic disease
# Elevated LFTs- Improving. Possible shock liver secondary to hypotension
# Vitamin D deficiency-replace
# Secondary hyperparathyroidism
# Essential hypertension-continue Coreg and amlodipine
# Hyperlipidemia-continue statin
# Coronary artery disease with stent 2021. Continue high intensity statin, beta-elsie. Prasugrel stopped when patient was started on Eliquis
# Indeterminate 1.4 cm left adrenal nodule
# DVT prophylaxis- SCDs
# CODE STATUS-DNR
D/W RN
Part of this note was created using voice recognition system. Occasional wrong word or��sound alike� substitutions may have inadvertently occurred due to the inherent limitations of voice recognition software. If noted kindly bring it to my
attention for correction.
Original Note:
Today's Communication/Plan
-
HD tomorrow,
continue po abx
Abd Xray
Assessment / Plan
Assessment / Plan
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
and currently on prasugrel and CKD 3B presented with his due to confusion and lethargy for few days. Hb dropped after started on eliquis for new onset a fib. Currently on hold.
#UGIB
#PUD
unclear if it is related to eliquis use since he was on prasugrel before
-Status post 8 units of PRBC total this hospital stay
-Developed dark maroon stools after being started on Eliquis last week
-EGD showed nonbleeding peptic ulcer and a large duodenal ulcer with clot adherent
-Currently on IV PPI drip; IR for embolization/other intervention to the GDA if more bleeding
-advancing the diet since no plan for PCN at this time
-per GI hold anticoagulants; cardio recommend to start single agent eliquis when ok by GI
-May consider second look EGD in the next few days for better visualization and risk stratification, at a minimum would wait 1 week prior to restarting..
-Mylicon for bloating, maalox one time
- abdominal Xray
-transfer to tele
#Sepsis due to CAUTI - POA
#Neurogenic bladder with chronic valverde catheter
-urine culture showed Klebsiella pneumonia
-Transition cefazolin 1g IV q24 (d12) to cefuroxime 500mg po q24H x 2 doses through 05/10/24.
-Currently on CBI due to purulence upon Valverde placement
-Will need outpatient follow-up with urology; Valverde 22 Fr 3-way on 05/04/24
-Continue finasteride, tamsulosin; continue with Valverde at discharge
- IR recommend to hold off on PCN for now
#New onset ESRD
#H/O CKD 3B
-Has been initiated on HD every M/W/F with nephrology here; HD today
-Had tunneled HD cath placed for long-term dialysis access; Right UE swelling, ordered US
-Recent CT showed ongoing obstructive uropathy, now s/p Valverde catheter
-Trend daily BMP, continue with dialysis as scheduled
-Will need follow-up at discharge with nephrology and urology
-HD tomorrow
#New onset Atrial fibrillation
-[id number] score 5, nonvalvular
-Was already on rate controlling agent with home carvedilol
-Was started on Eliquis here though currently held for presumed UGIB as above
-cardio recommend to start single agent eliquis when ok by GI
#Type 2 DM
-Home medications include Lantus, NovoLog, Tresiba; previously on Farxiga
-Had severe hyperglycemia on arrival, suspected to be HHS, now improved
-Blood glucose currently stable on insulin regimen
#CAD s/p PCI
-Had PCI in 2021; Home meds include high intensity statin, beta-elsie, prasugrel
-Due to occurrence of new onset AF, prasugrel was transition to Eliquis
-Eliquis currently held due to GI bleeding as above
#Essential HTN
-Home medications include carvedilol, amlodipine
-No known history of hypertensive systemic diseases
-Blood pressure currently stable
#HLD
-Resume statin for after EGD
#Elevated LFTs
-Likely secondary to infection/sepsis, reduced perfusion
-Resolved
#Toxic metabolic encephalopathy
-Likely multifactorial with sepsis, possible HHS/severe hyperglycemia
-Improved/resolving with correction of issues shown below
-Resolved
-Pt/Ot reconsulted
Code status: DNR
Diet: CLD
DVT prophylaxis: SCDs
Anticipated Discharge: 24 - 48 hours
Subjective/Interval History
-
Date of Service: May 09, 2024
c/o abdominal pain after BF. Overwhelmed with medical information from different specialities.
Objective Data
-
Labs:
Laboratory Results
05/09/24
04:47
WBC 8.7
Hgb 9.2 L
Hct 26.5 L
Plt Count 126 L D
Sodium 131 L
Potassium 4.8
Chloride 97 L
Carbon Dioxide 25
BUN 44 H
Creatinine 4.4 H*
Glucose 243 H
Calcium 7.1 L
Vital Signs:
Vital Signs
Temp Pulse Resp BP Pulse Ox
98.4 F 65 15 125/48 96
05/09/24 07:00 05/09/24 06:00 05/09/24 06:00 05/09/24 06:00 05/09/24 06:00
I&O
05/08/24 05/09/24 05/10/24
06:59 06:59 06:59
Intake Total 2580 / 2580
Output Total 500 / 500 1095 / 1095
Balance 2079 / 2079 -1095 / -1095
Review of Systems
-
History Source: Patient
Abdomen/GI: Reports Abdominal Pain and Nausea; Denies Vomiting
Physical Exam
-
General: Well Developed, Well Nourished, No Apparent Distress, Comfortable and Other (Right UE swelling)
HEENT: Normocephalic, Atraumatic, Moist Mucous Membranes and Anicteric
Respiratory: Clear to Auscultation and Non Labored Respirations; Negative Accessory Resp Muscle Use
Cardiac: Regular Rhythm, S1/S2 and Murmur; Negative Rub or Gallop
GI: Soft, Nontender, Nondistended and Normal Bowel Sounds
Rectal: Black and Red
Musculoskeletal: No Clubbing, No Cyanosis and No Edema
Skin: Warm and Dry; Negative Rash
Neuro: AO x 3 and Nonfocal/Grossly Intact
Psych: Calm
Data Reviewed
-
Labs: Labs Reviewed by me
--- NOTE | 2024-05-09 07:55 | PN.DE.MGMTRT ---
Insulin Management
- -
05/09/2024: Diabetes Management F/U:
Patient brought to ED with change of mental status, found to be in DKA. PMH CAD, HTN, diabetes, CKD 3b, UTI 1 month ago. Prior to admission was taking Tresiba 10 units @ hs. A1C on 03/22/24 was 8.5%--> A1C 9.6% this admission. Cr 6.3, eGFR
8.7-->5.3, eGFR 10.16
Glucose Patient was managed on insulin infusion and transitioned off on 04/28 to SQ Insulin.
Patient is awake and alert, sitting up in chair, c/o abdominal pain,'burning diaphragm' and SOB. Son- Saad at bedside.
Per nurse, pt has refused all meds including insulin due to abd pain. His diet was advanced to regular, pt ate dean and OJ for breakfast as his 1st meal after being on a clear liquid diet for several days.
05/08 all standing insulin was d/c'd due to hypoglycemia. Dinner time glucose was 221, required 2 units of corrective insulin, HS blood sugars was 264, trended up to 271@ 3AM. FBG 258 POC this AM.
Will resume insulin regimen. Give Lantus 12 units now. Start NovoLog 4 units AC. Cont low corrective
Discussed with nurse, Plan to hold AC NovoLog if he is made NPO and is not eating.
Diabetes History
- -
Type of Diabetes: 2 requiring insulin
Pre-Admission Diabetes Regimen
05/09/24
04:47
Creatinine 4.4 H*
Lab Results
Hemoglobin A1c 9.6 % (4.0-5.6) H 04/27/24 06:06
Insulin Pump Settings
IP Diabetes Regimen
05/08/24 05/08/24 05/08/24
07:51 10:03 12:04
Glucose
POC Glucose 73 157 H 131 H
05/08/24 05/08/24 05/09/24
17:33 22:32 03:16
Glucose
POC Glucose 221 H 264 H 271 H
05/09/24
04:47
Glucose 243 H
POC Glucose
Meal type: Breakfast
Amount consumed: 40%
Patient Education
--- NOTE | 2024-05-09 08:10 | W.PN.UPDATE ---
Update Note
Progress Note Update
Patient's left hydronephrosis improved quite a bit between 05/04 and 05/07 CT examinations, likely related to valverde decompression of the bladder. I do not believe that left PCN would help his renal function improve, and it would carry risk of
bleeding and other complications, as well as the morbidity of having an external catheter. Will hold on PCN placement. D/w Dr. Farah.
--- NOTE | 2024-05-09 08:20 | W.PN.CD ---
Today's Communication / Plan
-
-Resume Eliquis once cleared by GI; can be reevaluated by his primary Bundle Sorter as an outpatient.
-Was on Prasugrel with plan for single agent Eliquis when able; do not resume Prasugrel since the patient will be on Eliquis.
-Cardiology will remain available on an as-needed basis.
-Bundle Sorter: Dr. Jarrell Barfield ([place]).
Impression / Plan
-
83 y/o male with PMH of CAD, LAD stent 2021, mild/mod , CKD3b. Admitted with severe lab abnormalities including Hgb 6.9, acute renal failure with hyperkalemia, glucose >750. We were consulted for new A fib. Eliquis started. Patient with acute
anemia with GIB, syncope.
Bundle Sorter: Dr. Jarrell Barfield ([place]).
Acute anemia/GIB/syncope:
-patient hgb dropped from 10.9 to 7.1 05/05/24. He had syncope that day per nursing. No concerning arrhythmias on monitor. Bloody stool was noted. Eliquis held. 2 units PRBC's administered. Later, hgb back down to 7.2. Endoscopy with gastric and
duodenal ulcers. Duodenal ulcer with adherent clot (injected). He then had bleeding again and hgb down to 6.7 requiring more blood products. Negative CTA. If rebleeds, plan is for IR for empiric GDA embolization. Per GI, plan is clear liquid diet
and IV PPI and monitoring and continue to hold OAC/AP at this time.
Paroxysmal Afib.
-Echo 04/27: EF 55-60%, mild .
-Remains in sinus rhythm.
-Continue Coreg.
-also noted are PAC's, PVC's, Wenckebach- no severe bradycardia or advanced conduction disease seen.
-CHADS2-VASC = 5. Eliquis initiated 05/04/24. However, now with acute anemia/GIB held. See above.
-Resume Eliquis once cleared by GI; can be reevaluated by his primary Bundle Sorter as an outpatient.
Acute renal failure:
-nephrology managing.
-HD new start this admission.
Suspected UTI with bacteremia:
-Abx per primary team
CAD with hx stenting (2021):
-seems to be stable. Denies any CP.
-allergic to Plavix and Brilinta per OP chart
-Was on Prasugrel with plan for single agent Eliquis when able; do not resume Prasugrel since the patient will be on Eliquis.
Aortic stenosis:
-mild, stable
HTN:
-continue Coreg and amlodipine
-Blood pressure is controlled.
Subjective:
No major events overnight. No cardiac complaints this a.m. Remains in sinus rhythm on telemetry.
Physical Exam
Vital Signs/Labs
Vital Signs
Temp Pulse Resp BP Pulse Ox
98.4 F 65 15 125/48 96
05/09/24 07:00 05/09/24 06:00 05/09/24 06:00 05/09/24 06:00 05/09/24 06:00
05/08/24 05/09/24 05/10/24
06:59 06:59 06:59
Actual Weight 71.5 kg 69.8 kg
05/09/24 04:47
05/09/24 04:47
PT 16.3 Sec (11.4-14.6) H 04/28/24 03:16
INR 1.26 04/28/24 03:16
Magnesium 1.8 mg/dl (1.6-2.3) 05/09/24 04:47
Physical Exam
Constitutional: No acute distress and Comfortable
EENT: Anicteric
Cardiovascular: Rhythm & rate is regular, Pedal edema is absent, Systolic murmur present (2/6) and S1S2 is normal
Respiratory: Respiratory effort normal and Lungs clear to auscul.
GI: Soft
Neuro/Psych: AO x 3
Other: Skin (Warm, dry, intact)
Data Reviewed
-
Date of Service: May 09, 2024
EKG: Report Reviewed by me (Telemetry: Sinus rhythm)
Labs: Labs Reviewed by me
[2024-05-09 09:06] LABS: Glucose - Point of Care 258 mg/dl (70-99)
--- NOTE | 2024-05-09 09:10 | PTCARENOTE ---
Pt refusing all medications including insulin. Dr. Peterson and consumer educator notified.
--- NOTE | 2024-05-09 09:22 | W.PN.ID1 ---
Date of Service
Date of Service: May 09, 2024
Today's Communication
Transition cefazolin 1g IV q24 (d12) to cefuroxime 500mg po q24H x 2 doses through 05/10/24.
ID will sign off. Call prn.
Assessment / Plan
# Klebsiella complicated UTI
# Klebsiella bacteremia
# Leukocytosis resovled
# Severe b/l hydroureter/hydronephosis
# Atonic bladder with chronic valverde
# ARISTEO on CKD now on HD
- Renal US with bilateral hydronephrosis L>R
- 05/04/24 CT a/p severe bilateral hydroureter. No stones. Severe bladder distention to above level of umbilicus.
- Appreciate Urology. s/p CBI to clear to clear pyuria and bladder decompression
- Repeat Ucx negative
-05/07 CT a/p; right renal subcapsular hematoma vs seroma vs urinoma
- 05/08 pt declined left percutaneous nephrostomy.
Per IR left hydro somewhat improved with CBI, valverde decompression and perc neph unlikely to help with renal function.
- Transition cefazolin 1g IV q24 (d13) to cefuroxime 500mg po q24H x 2 doses through 05/10/24.
# s/p UGI bleed
# s/p Blood loss anemia
- s/p EGD: large duodenal ulcer with clots
ID will sign off.
Chief Complaint
-: UTI and Bacteremia
Subjective / Review of Systems
No complaints.
Vital Signs / Physical Exam
Vital Signs
Vital Signs
Temp Pulse Resp BP Pulse Ox
98.4 F 65 15 125/48 96
05/09/24 07:00 05/09/24 06:00 05/09/24 06:00 05/09/24 06:00 05/09/24 06:00
Physical Exam
Constitutional: No Acute Distress and Comfortable
Pulmonary: Clear
Gastrointestinal: Soft, Non Tender and Non Distended
Genito-Urinary: Valverde; Negative Hematuria
Neurological: AO x 3
Objective Data
Lab Data
Lab Results
05/09/24 04:47
05/09/24 04:47
PT 16.3 Sec (11.4-14.6) H 04/28/24 03:16
INR 1.26 04/28/24 03:16
Estimated Creat Clear 12 ml/min 05/09/24 04:47
Lactic Acid 0.7 mmol/L (0.7-2.0) 04/28/24 12:05
Total Bilirubin 0.5 mg/dl (0.2-1.3) 05/06/24 06:55
AST 18 U/L (17-59) 05/06/24 06:55
ALT < 10 U/L (0-50) 05/06/24 06:55
Alkaline Phosphatase 205 U/L (38-126) H 05/06/24 06:55
Most recent labs reviewed.
Micro Results:
05/04/24 13:55 Urine Culture - Final
Urine NO GROWTH
04/29/24 09:09 Blood Culture - Final
Blood/Venous No Growth - Final Report
04/27/24 14:16 Blood Culture - Final
Blood/Venous No Growth - Final Report
04/26/24 15:46 Urine Culture - Final
Urine Klebsiella pneumoniae
04/26/24 19:21 Blood Culture - Final
Blood/Venous Klebsiella pneumoniae
Gram Stain - Final
04/26/24 15:02 Blood Culture - Final
Blood/Venous Klebsiella pneumoniae
Gram Stain - Final
04/27/24 Renal US: Bilateral hydronephrosis, moderate left and mild right.
05/04/24 CT a/p wo IV contrast: Severe bilateral hydroureter. No obstructing radiopaque stones are noted. Possible subcapsular right renal fluid collection. Limited evaluation without IV contrast. Renal masses and masses of the collecting system
and bladder cannot be excluded without IV contrast. Mild prostate hypertrophy.
05/07/24 CTa/p: 1. Negative for active gastrointestinal hemorrhage. As above, there is gastric and duodenal mucosal hyperenhancement, but no active bleeding is identified. Patient's known duodenal ulcer is not well seen at CT.
2. Persistent moderate left hydronephrosis and persistent bilateral hydroureter. As above, there is abnormal appearance of the right kidney with subcapsular collection which nearly completely surrounds the kidney. There are associated compressive
changes of the right kidney with diminished enhancement and misshapen cortex. There is mild prominence of the right renal collecting system, no marked hydronephrosis. Collection shows greater than simple fluid attenuation and could represent old
hematoma/seroma. Urinoma is also a diagnostic consideration. Presence or absence of superimposed infection cannot be determined by this examination.
3. Valverde catheter in position within decompressed urinary bladder. Diffuse marked urinary bladder wall thickening related to either chronic outlet obstruction or neurogenic bladder.
[2024-05-09] MEDS: NOVOLOG FLEXPEN-LOW RESISTANCE SC ×3 (09:24→13:20)
[2024-05-09] MEDS: COREG PO ×2 (09:26→11:03)
[2024-05-09] MEDS: PROSCAR PO ×2 (09:26→11:04)
[2024-05-09] MEDS: NORVASC PO ×2 (09:26→11:03)
[2024-05-09] MEDS: OCUVITE SOFTGEL PO ×2 (09:26→11:04)
[2024-05-09] MEDS: OSCAL 500 + D PO ×2 (09:26→11:04)
--- NOTE | 2024-05-09 09:49 | PTCARENOTE ---
+2 edema noted on RUE, same arm with midline. Dr. Peterson and IVT RN notified.
--- NOTE | 2024-05-09 09:56 | VATNOTE ---
Called to assess Right arm swelling. +2 edema noted all throught the upper arm where the midline is placed. Recommended us of the right arm. Will follow up closely.
[2024-05-09] MEDS: MAALOX 30 ML PO (11:06)
--- NOTE | 2024-05-09 11:20 | PTCARENOTE ---
Addendum entered by Danielle Arenas 05/09/24 12:27:
Pt denies relief s/p maalox administration. Dr. Peterson notified, awaiting further orders. Pt's updated via phone, and son updated at bedside.
Original Note:
Pt presents as assessed. Aox3, anxious and tearful. Confused on plan of care despite multiple attempts to explain cancellation of procedure. Pt becoming anxious and c/o 'burning diaphragm', pain in diaphragm, SOB, and dizziness. Pt reports he ate
dean and OJ for breakfast. Dr. Peterson notified. EKG obtained. Dr. Peterson and hospitalit to bedside. Order received for Maalox, administered as ordered, see AUG.
[2024-05-09 11:34] LABS: Glucose - Point of Care 245 mg/dl (70-99)
--- NOTE | 2024-05-09 11:55 | PN.CDI ---
CDI
- -
CDI:
Physician Documentation Request
Admit Date: 04/26/24 17:29
Dear Doctor Javon/Resident,
Please review the following and provide your response in the progress notes.
Clinical Indicators:
Pt admitted with Sepsis 2/2 UTI /ARISTEO on CKD3b now on HD /HX of neurogenic bladder with chronic indwelling Rosenthal
Progress note 05/07, ' Ongoing bleeding today.Hb 7.2 (1U PRBC) ---> 6.8 (1 UPRBC) --> 6.7 today... blood transfusion serial H+H...hold prasugrel and Eliquis d/w Dr. Pedro ideally would restart in 72 hours from index bleed (05/09) but depends on
clinical status....'
Progress note 05/08,' Upper GI bleed-peptic ulcer disease...Total 8 units of packed red blood cells this admission Continue PPI.... Anemia acute blood loss anemia and anemia of chronic disease ....Was started on Eliquis here though currently held
for presumed UGIB as above...'
Please clarify the relationship between these conditions:
Yes, _ABLA__ is related to/associated with/exacerbated by Eliquis use ___.
No, __ABLA_ is not related to/associated with/exacerbated by Eliquis use ___ but it is due to ___. (Please specify)
Unable to determine
Use of terms such as suspected, likely, concern for, or probable (associated with a specific diagnosis that is being evaluated, monitored, or treated as if it exists) are acceptable and can be coded in the inpatient setting, when documented at the
time of discharge.
Thank you,
Lillie Lira RN
CDI Specialist
[facility] [employer]
Please use your independent medical judgment in providing your response.
--- NOTE | 2024-05-09 12:59 | W.PN.NEPH.PH ---
Today's Communication / Plan
-
HD tomorrow
Assessment/Plan
-
Assessment
Hypertension
ARISTEO
DKA
Metabolic acidosis
Lactic acidosis
Hyperkalemia
Hyponatremia
azotemia
Neurogenic bladder with bilat hydro
Coronary artery disease
E faecalis urosepsis
Plan:
ARISTEO is likely due to combination of neurogenic bladder in setting of severe DKA
hb stable at 9 range
di dnot need pCN per IR, cont valverde per -likely non oliguric
for duplex of right UE for edema
abx per ID
mild hypocalcemia-vit D low, PTH 103 appropriately high-add vit D2
spoke with nursing
-
-
Date of Service: May 09, 2024
CC / HPI / ROS
-
Chief Complaint:
ARISTEO
History of Present Illness:
ARISTEO/Cr now on dialysis support
Hemodynamically stable
CT abd shows bilat hydro and bladder distension 05/05
hb stable at 9 range
Review of Systems:
no fevers
c/o mild epigastric discomfort after eating breakfast this am
no nausea or vomiting
no CP or sob
right UE edema 2+
Labs
-
Labs:
WBC 8.7 10^3/uL (4.8-10.8) 05/09/24 04:47
RBC 3.11 10^6/uL (4.70-6.10) L 05/09/24 04:47
Hgb 9.2 g/dL (13.0-18.0) L 05/09/24 04:47
Hct 26.5 % (39.0-52.0) L 05/09/24 04:47
Plt Count 126 10^3/uL (130-400) L D 05/09/24 04:47
Sodium 131 mmol/L (135-145) L 05/09/24 04:47
Potassium 4.8 mmol/L (3.5-5.1) 05/09/24 04:47
Chloride 97 mmol/L (98-107) L 05/09/24 04:47
Carbon Dioxide 25 mmol/L (22-30) 05/09/24 04:47
BUN 44 mg/dl (9-20) H 05/09/24 04:47
Creatinine 4.4 mg/dL (0.7-1.3) H* 05/09/24 04:47
eGFR 12.70 05/09/24 04:47
Glucose 243 mg/dl (70-99) H 05/09/24 04:47
Calcium 7.1 mg/dl (8.4-10.2) L 05/09/24 04:47
Albumin 2.1 g/dl (3.5-5.0) L 05/06/24 06:55
Physical Exam
-
Vital Signs:
Vital Signs
Temp Pulse Resp BP Pulse Ox
98.2 F 64 18 134/46 93
05/09/24 11:29 05/09/24 12:00 05/09/24 12:00 05/09/24 10:00 05/09/24 12:00
Cardiovascular:: Regular rate and rhythm
Respiratory:: Bilateral: CTA
Lung Excursion:: Normal
Abdomen:: Nontender and Soft
Extremity Edema:: +1: Bilateral:
Valverde Catheter: Yes
--- NOTE | 2024-05-09 13:07 | PTCARENOTE ---
Addendum entered by Danielle Arenas 05/09/24 14:27:
US at bedside.
Addendum entered by Danielle Arenas 05/09/24 13:54:
Informed by that US called and reported pt was in pain and feeling 'faint' and did not complete US- pt sent back to unit with transport. Pt received back in room. Now agreeable to Lantus Insulin as well as Simethicone and Vit D- administered as
ordered; see MAR. This RN spoke with US, per department they will attempt to do study bedside when able.
Original Note:
Pt sent to [facility] XR and to US via stretcher.
--- NOTE | 2024-05-09 13:21 | W.PN.URO.CBU ---
Today's Communication / Plan
-
hand irrigate prn valverde debris may need silastic valverde
Assessment / Plan
-
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
Klebsiella urosepsis and bacteremia
Significant pyuria secondary to cUTI - resolved
Malpositioned catheter w/ suboptimal drainage - resolved
Bilateral hydroureteronephrosis
Right subcapsular fluid collection
04/27: JUAN ALBERTO => moderate left hydro, mild right hydro
Valverde catheter draining well after initial placement - removed 05/03, switched to [facility].
Urology contacted evening 05/03 - STAT CTAP w/o IV contrast recommended.
Patient refused CT imaging until I discussed rationale for imaging and concerns about obstructive uropathy.
05/04: CTAP w/o IV contrast => severe bladder distention, severe bilateral hydroureter.
Possible postrenal contribution to ARISTEO on CKD given CT findings.
Will need maximal bladder drainage given recent h/o pyuria causing intermittent catheter obstructions.
Cr remains elevated
Diagnosis
-
Date of Service: May 09, 2024
-
Patient Diagnosis:
Post Op Day:
Patient Diagnosis:
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
Klebsiella urosepsis/bacteremia
Significant pyuria secondary to cUTI
Bilateral hydroureteronephrosis is now resolved as valverde draining free of debris
Subjective
-
feels better
Objective
-
Vital Signs
Temp Pulse Resp BP Pulse Ox
98.2 F 64 18 120/77 93
05/09/24 11:29 05/09/24 12:00 05/09/24 12:00 05/09/24 12:00 05/09/24 12:00
Intake and Output
05/08/24 05/09/24 05/10/24
06:59 06:59 06:59
Intake Total 2580 / 2580
Output Total 500 / 500 1095 / 1095
Balance 2079 -109 / -1094
Intake:
Oral fluids 2079
Blood Product Amount Infused ( 500 / 500
mL)
Packed Rbc Leukoreduced Unit 250 / 250
[id number]
Packed Rbc Leukoreduced Unit 250 / 250
[id number]
Output:
True Urine Output from [facility] 500 / 500 1095 / 1095
Other:
Number of unmeasured liquid
stools
Rectum 3 1
Laboratory Results
05/09/24 04:47
05/09/24 04:47
Review of Systems
-
: Difficulty Voiding
Physical Exam
-
General - well developed, well nourished, no acute distress
Chest - clear bilaterally
Abdomen - soft, non-tender, positive bowel sounds, no CVAT, no incisional pain or distention
Genitalia - normal
Rectal - normal
Skin - warm & dry with no rash
Neuro - AOx3, no motor deficits
Extremities - no clubbing, no cyanosis, no edema
Incision - clean, dry
Dressing - clean, dry, intact
[2024-05-09] MEDS: MYLICON 80 MG PO (13:46)
[2024-05-09] MEDS: DRISDOL (VITAMIN D2) 50000 UNITS PO (13:46)
[2024-05-09] MEDS: LANTUS 0.12 UNITS SC (13:46)
[2024-05-09 13:57] LABS: Glucose - Point of Care 280 mg/dl (70-99)
[2024-05-09 14:32] LABS: Troponin I < 0.012 ng/ml
[2024-05-09 16:01] LABS: Glucose - Point of Care 277 mg/dl (70-99)
--- NOTE | 2024-05-09 17:10 | PTCARENOTE ---
Pt's family at bedside, concerned regarding pt's mental status compared to how they saw him the prior evening- Dr. Peterson notified and at bedside to see pt. Tele transfer canceled.
--- NOTE | 2024-05-09 17:18 | CM ---
Patient with new HD.
Spoke with patient's Monica;
the confirms she expects her will return home after rehab and is considering having a chair lift installed.
would agree to a referral to [facility] and prefers MWF mid morning.
Patient has poor vision and is not driving.
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
Spoke with [facility];
their SW is able to make the referral for HD if not already done.
Message from Dr Shea; Dx ARISTEO.
Spoke with [facility]; initiated referral for outpatient HD with schedule preferences. Clinical info sent via [facility] Fax.
Plan [facility] with referral to [facility].
--- NOTE | 2024-05-09 17:20 | W.PN.UPDATE ---
Update Note
Progress Note Update
Reevaluated the patient.
No he is complaining of abdominal pain. He did not eat lunch.
Family at bedside he is also confused.
Neuroexam is unremarkable except for mild confusion
Abdomen distended and complains of diffuse tenderness. Earlier he did not have any.
Will plan to get CT abdomen and pelvis with p.o. and IV contrast
If CT is negative patient can have clear liquids and advance slowly.
Discussed with the family regarding hospital-acquired delirium
Discussed with nursing
Total time spent today more than 55 minutes
[2024-05-09 17:25] LABS: Glucose - Point of Care 249 mg/dl (70-99)
[2024-05-09] MEDS: FLOMAX 0.4 MG PO (17:34)
[2024-05-09] MEDS: LIPITOR 80 MG PO (17:34)
[2024-05-09] MEDS: CEFTIN 500 MG PO (17:34)
[2024-05-09] MEDS: NOVOLOG FLEXPEN-LOW RESISTANCE 2 UNITS SC (17:35)
[2024-05-09] MEDS: OMNIPAQUE 50 ML PO (17:42)
--- NOTE | 2024-05-09 17:45 | PTCARENOTE ---
Pt for abd CT-contrast administered as ordered. Pt and family instructed on importance of finishing contrast.
--- NOTE | 2024-05-09 21:00 | PTCARENOTE ---
Pt only able to drink about 1/[address]. assistive technology specialist reached out to ordering provider and pt taken to CT scan. Pt's abdomen distended and pt has +2 anasarca and +3 edema RUE and skin is weeping on RUE.
[2024-05-09] MEDS: COREG 12.5 MG PO (21:30)
[2024-05-09] MEDS: OCUVITE SOFTGEL 1 CAP PO (21:30)
[2024-05-09] MEDS: MELATONIN 5 MG PO (21:31)
[2024-05-09 22:31] LABS: Glucose - Point of Care 184 mg/dl (70-99)
[2024-05-09 22:37] LABS: Troponin I < 0.012 ng/ml
[2024-05-10] VITALS (68 sets, daily range): BP systolic 87–123; BP diastolic 35–81; BMI 24.6
--- NOTE | 2024-05-10 03:04 | PTCARENOTE ---
Pt with minimal output from valverde. Bladder scan done and revealed <100ml. Valverde irrigated and returned essentially just the irrigant. House provider notified and labs ordered for the am with HD.
--- NOTE | 2024-05-10 06:01 | W.PN.GI.CBS2 ---
Today's Communication / Plan
-
Please see assessment and plan for details.
Assessment / Plan
-
1. GI bleed : Secondary to large duodenal ulcer with clot, unable to be removed, status post epi and EndoClot, with likely 1 episode of recurrent rebleeding with negative CT angiogram, though has remained stable since then, with hemoglobin that
responded appropriately to transfusion. Antiplatelet and anticoagulation is difficult clinical scenario given A-fib and coronary disease, though stent more than a year ago, in sinus rhythm now. Given adherent clot and unable to visualize would
continue to hold for now. Continue PPI twice daily for now.
2. Abdominal pain: New, with distention, and CT scan with severe enteritis, worry for intestinal ischemia given presentation. He is tachypneic and confused now, worry for developing acidosis. I discussed with nurse, critical care FACTORY LABORER, hospitalist.
Will transfer to ICU, consult surgery, check stat ABG now, continue antibiotics, n.p.o. for now. Will review CT scan with radiology, question about possible pneumatosis on my review.
Subjective
Subjective
Date of Service: May 10, 2024
Events noted, was complaining of increased abdominal pain and distention yesterday, also with change in mental status. Per nursing urine output has been low despite flushing and irrigating [place]. No bowel movements overnight. Patient is confused
today compared to yesterday, complains of abdominal pain. Is tachypneic at rest.
Objective
Data Reviewed
Laboratory Data:
Laboratory Results
PT 16.3 Sec (11.4-14.6) H 04/28/24 03:16
INR 1.26 04/28/24 03:16
Magnesium 1.8 mg/dl (1.6-2.3) 05/09/24 04:47
Total Bilirubin 0.5 mg/dl (0.2-1.3) 05/06/24 06:55
AST 18 U/L (17-59) 05/06/24 06:55
ALT < 10 U/L (0-50) 05/06/24 06:55
Alkaline Phosphatase 205 U/L (38-126) H 05/06/24 06:55
Vital Signs and I&O:
Vital Signs
Temp Pulse Resp BP Pulse Ox
98.4 F 71 26 105/50 92
05/10/24 02:51 05/10/24 04:00 05/10/24 04:00 05/10/24 04:00 05/10/24 04:00
I&O
05/08/24 05/09/24 05/10/24
06:59 06:59 06:59
Intake Total 2580 / 2580 530 / 530
Output Total 500 / 500 1095 / 1095 310 / 310
Balance 2080 / 2080 -1095 / -1095 220 / 220
Physical Exam
Physical Exam
General: NAD, confused which is new, oriented x 2
Abdomen: few bowel sounds, mildly distended which is new, diffuse tenderness, more on the left with some guarding, no rebound
[2024-05-10 06:14] LABS: B.E. -1.3 mmol/L; HCO3 22.6 mmol/L (21-28); O2 Saturation % 94.9 % (94-98); PCO2 34 mmHg (35-48); PO2 65 mmHg (83-108); pH 7.43 (7.35-7.45)
--- NOTE | 2024-05-10 06:24 | PTCARENOTE ---
Pt continues to be tachypneic. Abdomen continues to be distended and tender to palpation. Dr. Bartholomew in this am and ABG ordered and transfer to ICU.
[2024-05-10] MEDS: PROTONIX 100 IV (06:27)
[2024-05-10 06:31] LABS: O2 Therapy ROOM AIR
--- NOTE | 2024-05-10 06:44 | PTCARENOTE ---
Transferred to ICU via bed after report given to RN.
--- NOTE | 2024-05-10 07:57 | PN.DE.MGMTRT ---
Insulin Management
- -
05/10/2024: Diabetes Management F/U:
Patient brought to ED with change of mental status, found to be in DKA. PMH CAD, HTN, diabetes, CKD 3b, UTI 1 month ago. Prior to admission was taking Tresiba 10 units @ hs. A1C on 03/22/24 was 8.5%--> A1C 9.6% this admission. Cr 6.3, eGFR
8.7-->5.3, eGFR 10.16
Glucose Patient was managed on insulin infusion and transitioned off on 04/28 to SQ Insulin.
Patient is awake and alert, resting in bed, just completed HD, appears confused, no family at bedside.
05/09 no insulin was given (pt refused) except Lantus 12 units @1300 and 2 units of corrective insulin yesterday.
Pt was made NPO due to change in condition with acute abd pain and GI findings on CT A/P
HS blood sugar was 184, FBG blood sugar was 63 @08:23.
Will hold all standing dose insulin at this time while NPO and utilize corrective insulin if needed
Discussed with nurse and ICU team.
Diabetes History
- -
Type of Diabetes: 2 requiring insulin
Pre-Admission Diabetes Regimen
Lab Results
Hemoglobin A1c 9.6 % (4.0-5.6) H 04/27/24 06:06
Insulin Pump Settings
IP Diabetes Regimen
05/09/24 05/09/24 05/09/24
08:55 11:23 13:45
POC Glucose 258 H 245 H 280 H
05/09/24 05/09/24 05/09/24
15:50 17:14 22:19
POC Glucose 277 H 249 H 184 H
Meal type: Lunch
Meal type: Breakfast
Amount consumed: 0
Amount consumed: 15%
Patient Education
--- NOTE | 2024-05-10 08:02 | W.PN.HOSP.TC ---
Addendum entered and electronically signed by Tammi Alejandro MD 05/10/24 13:47:
Late documentation
Patient was seen earlier this morning with residentI saw and evaluated the patient. I reviewed the resident�s note and agree with findings and plan as documented in the resident�s note except for change in my documentation
He was moved to the ICU earlier this morning because of abdominal discomfort and distention
CT showed possible ischemic enteritis/colitis
On examination this morning patient was awake and alert he stated that his pain was better however abdomen was distended and and tender mostly on the left side.
Cardiovascular system S1-S2 appreciated
Chest decreased breath sounds at bases
Patient was slightly confused
Dialysis was performed today without removing Mutch fluid as we did not want to drop his blood pressure. Difficult situation where we cannot use IV fluids as he is already fluid overloaded and on dialysis.
Anticoagulation is not possible at this point with this GI bleed with an adherent clot on the ulcer.
Possibility of embolic ischemic Bowel entertained. Supportive care. Surgery evaluation appreciated
Hold antihypertensives now. He is in sinus rhythm.
Hold off on insulin due to hypoglycemia
Agree with clear liquid diet for now
Continue PPI twice daily, statin and meds for the prostate
Case discussed with GI, surgery, nephrology
Called went to message therefore called patient's son and reviewed patient's condition in detail. He is aware that father is really sick .
CT scan and chest x-ray reviewed by me
Total Critical Care Time 33 minutes. I was immediately available to the patient and staff. I personally examined, reviewed labs, diagnostic images/reports, interpretations, treatment plans, discussed patient care with other providers and family ,
entered orders as appropriate and documented the medical record.
Original Note:
Today's Communication/Plan
-
zosyn
cont current mgmt
clear liquids
Assessment / Plan
Assessment / Plan
83-year-old male with known past medical history of essential hypertension currently on multiple drugs, insulin-dependent diabetes, neurogenic/atonic bladder with chronic Valverde catheter, coronary artery disease/[place] 3 years ago s/p cardiac stenting
and currently on prasugrel and CKD 3B presented with his due to confusion and lethargy for few days. Hb dropped after started on eliquis for new onset a fib. Currently on hold.
#UGIB
#PUD
# abdominal pain
unclear if it is related to eliquis use since he was on prasugrel before
-Status post 8 units of PRBC total this hospital stay
-Developed dark maroon stools after being started on Eliquis last week
-EGD showed nonbleeding peptic ulcer and a large duodenal ulcer with clot adherent
-Currently on IV PPI drip; IR for embolization/other intervention to the GDA if more bleeding
-NPO previously per GI recs given recent abdominal pain after restarting diet and updated Ct findings; consistent with pneumatosis and area of severe enteritis on the left side
-advanced to clear liquids
-per GI hold anticoagulants; cardio recommend to start single agent eliquis when ok by GI
-May consider second look EGD in the next few days for better visualization and risk stratification, at a minimum would wait 1 week prior to restarting.
-no surgical recs at this time
#Sepsis due to CAUTI - POA
#Neurogenic bladder with chronic valverde catheter
-urine culture showed Klebsiella pneumonia
-started Zosyn given recent increase in abd pain and concern for infection
-appreciate urology recs-continue valverde
-Will need outpatient follow-up with urology
-Continue finasteride, tamsulosin; continue with Valverde at discharge
- IR recommend to hold off on PCN for now
#New onset ESRD
#H/O CKD 3B
-Has been initiated on HD every M// with nephrology here; HD today
-Had tunneled HD cath placed for long-term dialysis access; Right UE swelling, ordered US
-Recent CT showed ongoing obstructive uropathy, now s/p Valverde catheter
-Trend daily BMP, continue with dialysis as scheduled
-Will need follow-up at discharge with nephrology and urology
-HD today
#New onset Atrial fibrillation
-XCK2BH2-KLDl score 5, nonvalvular
-Was already on rate controlling agent with home carvedilol
-Was started on Eliquis here though currently held for presumed UGIB as above
-cardio recommend to start single agent eliquis when ok by GI
#Type 2 DM
-Home medications include Lantus, NovoLog, Tresiba; previously on Farxiga
-Had severe hyperglycemia on arrival, suspected to be HHS, now improved
-Blood glucose currently stable on insulin regimen
#CAD s/p PCI
-Had PCI in 2021; Home meds include high intensity statin, beta-elsie, prasugrel
-Due to occurrence of new onset AF, prasugrel was transition to Eliquis
-Eliquis currently held due to GI bleeding as above
#Essential HTN
-Home medications include carvedilol, amlodipine
-No known history of hypertensive systemic diseases
-Blood pressure currently stable
#HLD
-Resume statin for after EGD
#Elevated LFTs
-Likely secondary to infection/sepsis, reduced perfusion
-Resolved
#Toxic metabolic encephalopathy
-Likely multifactorial with sepsis, possible HHS/severe hyperglycemia
-Improved/resolving with correction of issues shown above
-Pt/Ot reconsulted
Code status: DNR
Diet: CLD
DVT prophylaxis: SCDs
Anticipated Discharge: 24 - 48 hours
Subjective/Interval History
-
Date of Service: May 10, 2024
Some improvement in abdominal pain since yesterday
Objective Data
-
Labs:
Laboratory Results
05/10/24 05/10/24
06:02 07:46
WBC Pending
Hgb Pending
Hct Pending
Plt Count Pending
PT Pending
INR Pending
APTT Pending
HCO3 22.6
Sodium Pending
Potassium Pending
Chloride Pending
Carbon Dioxide Pending
BUN Pending
Creatinine Pending
Glucose Pending
Calcium Pending
Vital Signs:
Vital Signs
Temp Pulse Resp BP Pulse Ox
98 F 71 26 105/50 92
05/10/24 07:44 05/10/24 04:00 05/10/24 04:00 05/10/24 04:00 05/10/24 04:00
I&O
05/09/24 05/10/24 05/11/24
06:59 06:59 06:59
Intake Total 530 / 530
Output Total 1095 / 1095 310 / 310
Balance -1095 / -1095 220 / 220
Review of Systems
-
History Source: Patient
Abdomen/GI: Reports Abdominal Pain; Denies Vomiting
Physical Exam
-
General: Well Developed, Well Nourished, Comfortable and Other (on HD)
HEENT: Normocephalic, Atraumatic, Moist Mucous Membranes and Anicteric
Respiratory: Clear to Auscultation and Non Labored Respirations; Negative Accessory Resp Muscle Use
Cardiac: Regular Rhythm, S1/S2 and Murmur; Negative Rub or Gallop
GI: Soft, Normal Bowel Sounds, Tender (mild diffuse), Distended and Other (+ Guarding)
Musculoskeletal: No Clubbing, No Cyanosis and No Edema
Skin: Warm and Dry; Negative Rash
Neuro: AO x 3 and Nonfocal/Grossly Intact
Psych: Calm
Data Reviewed
-
CT Scan: Report Reviewed by me
Labs: Labs Reviewed by me, Discussed with Physician and Discussed with Patient
--- NOTE | 2024-05-10 08:25 | W.PN.INTV ---
Today's Communication / Plan
Recommendations
Pain control
Monitor off antibiotics
Consult IR for paracentesis
Avoid hypoglycemia with low threshold to start D5 1/2 NS
q4hr BG to closely monitor blood glucose levels
Change PPI drip to 40 mg IV q12hr
Continue to trend H&H and platelet levels
If Hb remains stable by tomorrow then start chemical DVT prophylaxis
Continue with ICU level of care and hopefully can downgrade back to IMU vs telemetry tomorrow
Assessment
-
83-year-old male with history of hypertension, CAD, diabetes, hyperlipidemia, chronic kidney disease who was recently in the hospital with a UTI treated with antibiotics and Rosenthal catheter was placed for persistent retention presented with
confusion, new onset atrial fibrillation, and hyperglycemia-ring conductor initally consulted for DKA/new onset atrial fibrillation/critical care management 04/27/2024. Patient has been managed in the IMU since 05/07/2024, and then due to worsening
abdominal pain with tachypnea and reported altered mental status he was transferred to the ICU overnight on 05/09Cigarette Machines Mechanic service is asked to reevaluate the patient for additional management/recommendations.
Impression:
Abdominal pain-likely due to enteritis (radiologist feels this is due to ischemia); DDx is also bowel wall thickening from worsening ascites
Toxic metabolic encephalopathy
Upper GI bleed due to duodenal ulcer currently on PPI gtt
Metabolic acidosis with increased AG
Hypoglycemia
Bacteremia-Klebsiella pneumonia due to UTI
ARISTEO on CKD now on HD
Moderate left hydronephrosis with persistent bilateral hydroureter (seen on CTA abdomen/pelvis from 05/07/2024)
Hyponatremia
Anemia
Thrombocytopenia
Leukocytosis with bandemia
Elevated ALP
Hx of new onset atrial fibrillation
Hypoalbuminemia
Conditions present prior to admission:
Hypertension.
Hyperlipidemia.
CAD/stent.
Qqryashg-rpryacs-qxomskxqz.
Neurogenic/atonic bladder with chronic Rosenthal catheter.
Chronic kidney disease stage IIIb.
Plan
He continues to endorse abdominal pain to palpation; imaging yesterday with CT abdomen/pelvis showed concerns for ischemic enteritis
He does have tense ascites, and I believe that he would benefit from a paracentesis, both therapeutic and diagnostic -consult IR
If he spikes a fever then would definitely tap belly to rule out peritonitis
General surgery evaluated the pt and there is no concern for ischemia given his exam and no acute indication for surgery
Surgery is ok for clears
Hold off on Abx for now unless pt spikes a fever
Pain control
Bowel regimen if he gets narcotics
Continue to keep SpO2 >90-94%
Incentive spirometry encouraged
Nebulizers if needed - currently not bronchospastic
Aspiration precautions
Patient hypoglycemic this morning; follow blood sugar with q4hr POCT BG
- Low threshold to start D5 1/2NS at 40cc/hr
Change PPI gtt to q12hr; c/t trend H/H and TRX to keep Hb>7, plt>50k
Continue with HD as per nephrology
Trend potassium + serum sodium
Dialysis catheter inserted 04/28/2024 and HD initiated on 04/28/2204
Cultures reviewed
Patient previously had positive blood cultures on 04/26/2024 with Klebsiella pneumonia as well as urine culture on 04/26/2024 with Klebsiella pneumonia
- Repeat blood culture on 04/29/2024 and repeat urine culture on 05/04/2024 show NGTD
- ID was on board but then they signed off on 05/09/2024
- He was previously on Ancef from 05/02 - 05/08, s/p zosyn from 04/26 - 05/02 + rocephin x1 dose on 04/26; also got cefuroxime on 05/09
- Trend WBC and monitor for fevers
Cardiology following-correspondence reviewed
Monitor for recurrence of A-fib - currently in NSR with 1st degree AVB
Eventual transition to oral anticoagulant-Eliquis
Follow hemoglobin
Transfuse as needed to keep Hb>7, plt>50k given recent UGIB
DVT prophylaxis-SCDs; last blood TRX on 05/07/2024 (he has had 8 units PRBC this admission); If Hb remains stable by tomorrow then will start HSQ
Nutrition - ok for clears per surgery
PT/OT
IC access: Midline in RUE --> upgrade to PICC
Total time spent today was 77 minutes for this encounter. Time includes reviewing laboratory test/imaging results, reviewing pertinent medical records, obtaining and reviewing medical history, performing an appropriate exam, ordering medications,
tests and procedures. Time also includes documentation of this encounter, coordinating patient care and communicating with other healthcare professionals. Total time does not include separately billed tests performed on this date of service.
Data:
CT abdomen/pelvis with IV contrast 04/09/2024:
Small bowel loops in the left hemiabdomen with wall thickening and a few small scattered foci of gas that appear to be centered within the small bowel wall raising concern for pneumatosis and ischemic enteritis.
Several loops of small bowel in the left abdomen with moderate circumferential wall thickening. Differential diagnoses include inflammation, infection and less likely ischemia. New.
Moderate abdominopelvic ascites. Progressed.
Moderate bilateral pleural effusions.. Progressed bilaterally.
Moderate left lower lobe consolidation. Stable. Mild right lower lobe consolidation. Stable. Probably atelectasis.
Moderate subcapsular right perinephric fluid collection. Differential diagnosis includes hematoma, seroma and less likely infection. Stable. Associated stable compressive effects on the renal parenchyma.
Small hypodense right renal lesion decreased in size. This may represent a benign cyst. Infection an malignancy cannot be excluded. Severity evaluated by MRI examination.
Moderate air and Rosenthal catheter in the bladder. Stable.
Findings suggesting volume overload or third spacing. Stable.
Chest x-ray 04/26/2024-no focal consolidations, pleural effusions or pneumothorax
CT abdomen/pelvis with IV contrast 05/09/2024: compared to prior CTA A/P on 05/07/2024
Small bowel loops in the left hemiabdomen with wall thickening and a few small scattered foci of gas that appear to be centered within the small bowel wall raising concern for pneumatosis and ischemic enteritis.
Moderate abdominopelvic ascites. Progressed.
Moderate bilateral pleural effusions.. Progressed bilaterally.
Moderate left lower lobe consolidation. Stable. Mild right lower lobe consolidation. Stable. Probably atelectasis.
Moderate subcapsular right perinephric fluid collection. Differential diagnosis includes hematoma, seroma and less likely infection. Stable. Associated stable compressive effects on the renal parenchyma.
Small hypodense right renal lesion decreased in size. This may represent a benign cyst. Infection an malignancy cannot be excluded. Severity evaluated by MRI examination.
Moderate air and Rosenthal catheter in the bladder. Stable.
Findings suggesting volume overload or third spacing. Stable.
Subjective Dataa
Subjective Data
Date of Service:
Date of Service: May 10, 2024
Chief Complaint: Cigarette Machines Mechanic Follow Up and Pulmonary Follow Up
Subjective:
Patient seen and evaluated this morning. Patient's , Monica, at bedside and I answered all of her questions. Continues to endorse abdominal pain. Getting HD this morning. Vitals this morning showed: BP: 123/50, HR 67, and SpO2 92% on room
air. No rectal bleeding or vomiting seen this AM or overnight. BG low this AM on chemistry at 51.
Review of Systems
General: Other (Negative unless mentioned above)
Objective Data
Data Reviewed
Vital Signs / I&O / Oxygen:
Vital Signs
Temp Pulse Resp BP Pulse Ox
98 F 71 26 105/50 92
05/10/24 07:44 05/10/24 04:00 05/10/24 04:00 05/10/24 04:00 05/10/24 04:00
Intake and Output
05/09/24 05/10/24 05/11/24
06:59 06:59 06:59
Intake Total 530 / 530
Output Total 1095 / 1095 310 / 310
Balance -1095 / -1095 220 / 220
SaO2 92
Physical Exam
General: Respiratory Distress (n), Pain (abdomen), Chills (n) and Sweats (n)
HEENT: Normocephalic, Anicteric and Moist Mucous Membranes
Cardiovascular: Regular Rhythm and Peripheral Edema (negative)
Respiratory: Wheeze (n), Crackles (Bibasilar), Rhonchi (n), Non-Labored Respirations, Accessory Resp Muscle Use (n), Stridor (n) and Other (Diminished breath sounds)
GI: Soft, Distended (Tense), Non Tender and Other (Positive fluid wave appreciated on abdomen palpation)
Neurology: Awake, Alert and Tremors (negative)
Skin: Warm, Dry, Cyanosis (n) and Jaundice (n)
Labs/Micro/Reports
Lab Data
05/10/24 07:46
05/10/24 07:46
Laboratory Results
05/10/24 05/10/24
06:02 07:46
PT 16.6 H
INR 1.29
APTT 35.0
pH 7.43
pCO2 34 L
pO2 65 L
HCO3 22.6
O2 Delivery Level Room air
[2024-05-10] MEDS: NOVOLOG FLEXPEN-LOW RESISTANCE SC ×3 (08:38→17:23)
[2024-05-10] MEDS: LANTUS SC (08:38)
[2024-05-10 08:39] LABS: Glucose - Point of Care 63 mg/dl (70-99)
[2024-05-10 08:40] LABS: INR 1.29; PT 16.6 Sec (11.4-14.6)
[2024-05-10] MEDS: FLUSH (NSS) 2 FLUSH IV ×2 (08:41→14:45)
[2024-05-10] MEDS: DEXTROSE 50% SYRINGE 12.5 GRAMS IV ×2 (08:42→14:45)
[2024-05-10 08:51] LABS: Hematocrit 30.6 % (39.0-52.0); Hemoglobin 10.2 g/dL (13.0-18.0); Mean Corp Hgb Conc. 33.3 g/dL (33.0-37.0); Mean Corpuscular Hgb 28.9 pg (27.0-31.0); Mean Corpuscular Volume 86.7 fL (80.0-94.0); Mean Platelet Volume 10.3 fL (7.4-10.4); Platelet Count 149 10^3/uL (130-400); Red Blood Cell Count 3.53 10^6/uL (4.70-6.10); Red Cell Dist. Width 16.4 % (11.5-14.5); White Blood Cell Count 4.1 10^3/uL (4.8-10.8)
--- NOTE | 2024-05-10 08:54 | W.PN.NEPH.HD ---
Assessment
-
Patient seen on dialysis
Systolic blood pressure 95, UF reduced from 1.5 to 0.5 kg
CAT scan of abdomen report reviewed
No heparin given GI bleeding
Follow-up H&H pending, transfuse as needed
Progress Note - Hemodialysis
-
Date of Service: May 10, 2024
Duration: 30 minutes and 3 hours
Potassium Bath: 2
Calcium Bath: 2.5
Opti-Dialyzer: 160
Ultrafiltration: Other (Decrease UF to only 500 cc as patient hypotensive and weights not appreciably increased)
Blood Flow: 400
Dialysate Flow: 600
Heparin: None
EPO: 4000
--- NOTE | 2024-05-10 09:00 | PTCARENOTE ---
Addendum entered by Jannet Christensen RN 05/10/24 14:46:
Dextrose given via R midline
Original Note:
Rec'd pt at 0750 drowsy resting in bed. Does open eyes to verbal stimuli. Speech is slow but clear. CALI but weakly. Denies dizziness or headache. Skin is pale wm and dry. R arm tends to weep serous fluid. Respirs are shallow and tachypic with use of
abd muscles but pt denies shortness of breath. BS in general are decreased throughout. RA sats are 94%. Monitor SR with 1st' avb. Denies chest pain. + pulses. PT and DP pulses with the doppler. Edema as noted. VS as documented. Abd is round and
distended. Tender to palpation- mostly on the L side. Denies nausea. Currently NPO x meds. No stools. 3way valverde intact. Irrigation port capped. Draining small amts of clear yellow urine. Dr. Farah in to see pt. IV Protonix gtt infusing via R arm
Midline. Capped int intact L arm. RIJ nontunneled HD cath in place. software development manager at bedside and HD started at 0800. AM glucose at 0828 was 63. Pt is NPO so given. 12.5 gm D50 via R picc and flushed. Recheck in 15 min 99. Will recheck in 2 hrs. HD in
progress currently
[2024-05-10 09:13] LABS: Glucose - Point of Care 99 mg/dl (70-99)
[2024-05-10] MEDS: RETACRIT 4000 UNITS IV (09:18)
[2024-05-10] MEDS: MANNITOL 25% 12.5 GRAMS IV ×2 (09:19→10:55)
--- NOTE | 2024-05-10 09:27 | W.PN.UPDATE ---
Update Note
Progress Note Update
I reviewed CT scan person with radiology, it does appear to be consistent with pneumatosis and area of severe enteritis on the left side.
[2024-05-10 09:50] LABS: Blood Urea Nitrogen 52 mg/dl (9-20); Calcium 7.2 mg/dl (8.4-10.2); Carbon Dioxide 21 mmol/L (22-30); Chloride 98 mmol/L (98-107); Estimated Creatinine Clearance 8 ml/min; Glucose 51 mg/dl (70-99); Magnesium 2.1 mg/dl (1.6-2.3); Phosphorus 5.5 mg/dl (2.5-4.5); Potassium 5.1 mmol/L (3.5-5.1); Sodium 133 mmol/L (135-145); eGFR 8.25
--- NOTE | 2024-05-10 10:12 | CON.GS ---
Consultation
-
Requesting Provider: Puma
Performing Provider: Christopher
Reason for Consultation: Abd pain
Medical History
-
Chief Complaint: Abd pain and distention
History of Present Illness:
83M admitted 2 weeks ago for weakness. Reported problems with valverde intermittently not draining and found to be in urosepsis. Ultimately required dialysis, developed afib and was placed on AC. Also developed bleeding duodenal ulcer managed
endoscopically 3 days ago. Subsequently developed worsening abdominal pain to the left meghna-abdomen and increasing distention. Asked how he feels today compared to yesterday, he replied 'much better.' Asked if he has pain now, he replied 'no.'
Endorses anorexia. Unclear when last BM was, he denies n/v.
Past Medical History
Past Medical History: Other (CAD, HTN, IDDM, Renal Failure (CKD 4) and Other (dyslipidemia))
Past Surgical History: Other (caridac stent)
Social History
Tobacco: Non-Smoker
Alcohol: None
Drug: None
Personal:
Living: With Family
Employment: Retired
Family History
Family History: Reviewed & Noncontributory
Allergies / Home Medications
Allergy/AdvReac Type Severity Reaction Status Date / Time
clopidogrel [From Plavix] Allergy Unknown Verified 03/21/24 10:20
�Medication �Instructions �Recorded �Confirmed �Type
amlodipine 5 mg tablet 10 mg PO DAILY Blood Pressure 03/08/24 04/26/24 History
tamsulosin 0.4 mg capsule 0.4 mg PO QPM Urinary Issue 03/08/24 04/26/24 History
atorvastatin 80 mg tablet 80 mg PO QPM High Cholesterol 03/16/24 04/26/24 History
chromium picolinate 500 mcg capsule 500 mcg PO DAILY Supplement 03/16/24 04/26/24 History
insulin degludec 100 unit/mL 10 unit SC DAILY Diabetes 03/16/24 04/26/24 History
subcutaneous solution (Tresiba
U-100 Insulin)
prasugrel 5 mg tablet 5 mg PO DAILY Blood Clot 03/16/24 04/26/24 History
Prevention/Tx
red yeast rice 600 mg capsule 1,200 mg PO DAILY Supplement 03/16/24 04/26/24 History
vitamins A,C,T-jjgb-jlwkaq 2,148 1 tab PO BID Supplement 03/16/24 04/26/24 History
mcg-113 mg-45 mg-17.4 mg tablet
(PreserVision AREDS)
carvedilol 12.5 mg tablet (Coreg) 12.5 mg PO BID Blood Pressure 03/21/24 04/26/24 History
milk thistle 175 mg tablet 175 mg PO DAILY Supplement 03/21/24 04/26/24 History
therapeutic multivitamin 1 tab PO DAILY Supplement 03/21/24 04/26/24 History
finasteride 5 mg tablet 5 mg PO DAILY Urinary Issue 04/26/24 04/26/24 History
Review of Systems
-
A 10 point review of systems was completed, and was negative except as per HPI.
Physical Exam
Vital Signs
Temp Pulse Resp BP Pulse Ox
98 F 71 26 105/50 92
05/10/24 07:44 05/10/24 04:00 05/10/24 04:00 05/10/24 04:00 05/10/24 04:00
05/09/24 05/10/24 05/11/24
06:59 06:59 06:59
Actual Weight 69.8 kg 69.2 kg
Body Mass Index (BMI) 24.6
Lab Results
05/10/24 07:46
05/10/24 07:46
WBC 4.1 10^3/uL (4.8-10.8) L 05/10/24 07:46
Hgb 10.2 g/dL (13.0-18.0) L 05/10/24 07:46
Hct 30.6 % (39.0-52.0) L 05/10/24 07:46
Plt Count 149 10^3/uL (130-400) 05/10/24 07:46
Abs Immat Gran (auto) 0.1 10^3/uL (0-0.05) H 05/09/24 04:47
Neutrophils % 83.0 % (42.2-75.2) H 05/09/24 04:47
Physical Exam
General: No Apparent Distress
HEENT: Normocephalic and Anicteric
GI: Soft, Tender (no tt light perc, mild-mod ttp to left hemiabdomen with voluntary guarding) and Distended (mild)
Neuro: Awake and Alert
Psych: Calm
Data Reviewed
-
CT Scan: Image Personally Visualized and interpreted, Report Reviewed by me, Discussed with Physician and Discussed with Patient
Labs: Labs Reviewed by me, Discussed with Physician and Discussed with Patient
Old Records: Reviewed
Assessment / Plan
-
83M with urosepsis, acute renal failure, duodenal ulcer s/p endoscopic mgmt, with new left abd pain and increasing abdominal ascites
AFVSS, reports feeling better today than yesterday
Exam without peritoneal signs
No leukocytisis, lactic pending though unlikely to be helpful in setting of renal failure
CT with some thickened sb loops, increased ascites, ? of focal pneumatosis but not c/w vascular pattern and vessels appear patent without significant calcs at takeoffs, scan is limited, no free air
Plan:
No plan for surgical intervention, doubt bowel ischemia
Consider paracentesis if clinical picture worsens
Presently no role for surgery
Please call with ?s
[2024-05-10 10:22] LABS: Absolute Neutrophils -Man Diff 3.1 10^3/uL (1.4-6.5); Band Neutrophils 38 % (0-3); Lymphocytes 14 % (20-51); Monocytes 8 % (2-9); Platelets Checked Yes; Segmented Neutrophils 40 % (42-75)
[2024-05-10 10:23] LABS: Anisocytosis 1+; Hypochromasia 1+; Normal RBC Morphology No; Ovalocytes 1+; Polychromasia 1+; Total Cells Counted 100
--- NOTE | 2024-05-10 10:25 | PTCARENOTE ---
HD continues. Dr. White in to see pt and he also spoke with Dr. Avendano. No surgery planned currently. No changes in assessment. Pt just wants to rest.
--- NOTE | 2024-05-10 11:14 | W.PN.URO.CBU ---
Today's Communication / Plan
-
continue presebt gu care iv contrat in bladde no fistula no plans for sp tube at this time as pt too ill for elctive procedure if debris in bladder resumes then misty need change to silatic valverde
Assessment / Plan
-
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
Klebsiella urosepsis and bacteremia
Significant pyuria secondary to cUTI - resolved
Malpositioned catheter w/ suboptimal drainage - resolved
Bilateral hydroureteronephrosis
Right subcapsular fluid collection
04/27: JUAN ALBERTO => moderate left hydro, mild right hydro
Valverde catheter draining well after initial placement - removed 05/03, switched
05/04: CTAP w/o IV contrast => bladder empty valverde well positoed nio hydro ie med renal disease and valverde working no need at this time for sp tube also too ill for electine procedure continue presnt gu fo;ey care
Possible postrenal contribution to ARISTEO on CKD given CT findings.
Will need maximal bladder drainage given recent h/o pyuria causing intermittent catheter obstructions.
Cr remains elevated
Diagnosis
-
Date of Service: May 10, 2024
-
Patient Diagnosis:
Post Op Day:
Patient Diagnosis:
Post Op Day:
Patient Diagnosis:
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
Klebsiella urosepsis/bacteremia
Significant pyuria secondary to cUTI
Bilateral hydroureteronephrosis is now resolved as valverde draining free of debris
Subjective
-
abdpain bladder draining and free of debris
Objective
-
Vital Signs
Temp Pulse Resp BP Pulse Ox
98 F 80 27 116/50 91
05/10/24 07:44 05/10/24 10:53 05/10/24 10:53 05/10/24 10:53 05/10/24 10:53
Intake and Output
05/09/24 05/10/24 05/11/24
06:59 06:59 06:59
Intake Total 540 / 550
Output Total 1095 / 1095 310 / 310
Balance -1095 / -1095 230 / 240
Intake:
Oral fluids 410 / 410
IV fluids (Total) 130 / 140
Protonix 10 / 20
Output:
Urine, Valverde 310 / 310
True Urine Output from [facility] 1095 / 1095
Other:
Number of unmeasured liquid
stools
Rectum 1
Laboratory Results
05/10/24 07:46
05/10/24 07:46
Review of Systems
-
: Difficulty Voiding
Physical Exam
-
General - well developed, well nourished, no acute distress
Chest - clear bilaterally
Abdomen - soft, non-tender, positive bowel sounds, no CVAT, no incisional pain or distention
Genitalia - normal
Rectal - normal
Skin - warm & dry with no rash
Neuro - AOx3, no motor deficits
Extremities - no clubbing, no cyanosis, no edema
Incision - clean, dry
Dressing - clean, dry, intact
Care Review
Data Reviewed
Discussed with: Nursing
CT Scan: Image Pers Reviewed
[2024-05-10 11:37] LABS: Glucose - Point of Care 76 mg/dl (70-99)
[2024-05-10] MEDS: ZOSYN 50 IV ×2 (13:31→20:49)
--- NOTE | 2024-05-10 14:14 | CM ---
CM following re: discharger planning.
Reviewed pt's chart, met with pt and pt's spouse at bedside.
Both pt and his spouse are aware of the neri to go to [facility] for a short term rehab and HD treatment onsite and they expressed this agreement. Pt's spouse expressed her fearful feelings regarding possible pt's early discharge. IMM
reviewed, pt assured of the right to appeal discharge if she feels that pt is not ready, IMM form placed on chart, pt and his spouse have a copy.
CM spoke to [facility] liaison and she confirmed that all admissions paperwork submitted and pt is accepted for admission to [facility] for a short term rehab and HD onsite when pt is medically stable.
Per CM note from yesterday, outpatient HD referral initiated to [facility] for outpatient HD treatment at [facility].
D/C plan: [facility] for a short term rehab and HD treatment onsite.
CM will follow to assist pt with discharge to [facility] for a short term rehab and HD treatment onsite.
[2024-05-10 14:46] LABS: Glucose - Point of Care 63 mg/dl (70-99)
--- NOTE | 2024-05-10 14:55 | W.PN.UPDATE ---
Update Note
Progress Note Update
IR received a request for paracentesis. There is small volume ascites noted on CT scan. We did call for the patient but he refused the paracentesis.
--- NOTE | 2024-05-10 15:15 | PTCARENOTE ---
Pt resting. Letharic but arousable. at the bedside. Pt for a paracentesis but when told about it refused to have it done. Multiple explanations given as to why it would be beneficial and pt finally stated N F------O!!. I want to rest and I
don't want it done. Dr. Avendano updated. Glucose recheck at 1425 was 63. Tried to have pt drink some applejuice and eat some water ice but took only 1 spoonful/sip of each and then just wanted to be left alone. 12.5 gms of D50 at 1445 and recheck
at 15 min 110. Call shaffer in reach. Dr. Avendano updated on glucose as well and is going to add IV fluids
[2024-05-10 15:29] LABS: Glucose - Point of Care 110 mg/dl (70-99)
--- NOTE | 2024-05-10 15:30 | PTCARENOTE ---
With dozing sats dipping to 87-88%- 2l nc added with sats up to 94%
[2024-05-10 17:15] LABS: Glucose - Point of Care 105 mg/dl (70-99)
[2024-05-10] MEDS: D5/0.45%NACL 1000 IV (17:25)
[2024-05-10] MEDS: LIPITOR 80 MG PO (17:25)
--- NOTE | 2024-05-10 17:30 | PTCARENOTE ---
Somewhat more awake after being drowsy and lethargic for most of the day and just wanting to sleep. Speech is still slow but sl more interactive with and son here. Admits to abd pain with palpation but stated earlier ' you would have pain too
if everyone was touching you'. Sats on 2l nc are 90-94%. VS as documented. Tolerating few sips of clear liquids but overall appetite is very poor. Denies nausea. Minimal urine output- urine goes from clear to cloudy. Repositioned. IV D5/NS hung at
40 ml/hr via R arm midline. Call shaffer in reach.
[2024-05-10 18:54] LABS: Glucose - Point of Care 135 mg/dl (70-99)
--- NOTE | 2024-05-10 19:30 | PTCARENOTE ---
received report, pt drowsy, response to verbal very slow speech, NSR and 1st degree block on the monitor, weak radials Doppler pedals, +2 UE, +1 anasarca, B/L scds, diminished throughout coarse @ the bases, tachypneic, 2L NC SpO2 95%, belly round
distended tender to touch, BSx4 hypoactive, 3 way catheter no urine output, R midline, 20G left forearm, R subq HD cath, D5 1/2 NS 40ml, family @ bedside updated on plan of care tonight, call shaffer within reach, otherwise refer to documentation.
[2024-05-10] MEDS: PROTONIX IV 40 MG IV (20:49)
[2024-05-10] MEDS: NSS (PRESERVATIVE FREE) 10 ML IV (20:49)
[2024-05-10] MEDS: MELATONIN 5 MG PO (21:37)
[2024-05-10] MEDS: FLOMAX 0.4 MG PO (21:37)
[2024-05-10 23:17] LABS: Glucose - Point of Care 132 mg/dl (70-99)
[2024-05-11] VITALS (43 sets, daily range): BP systolic 81–132; BP diastolic 43–107; BMI 24.9
--- NOTE | 2024-05-11 00:13 | PTCARENOTE ---
systems reviewed, pt woke up confused reoriented, pt called from cell phone and orientation much better, denies pain, bladder scanned for 120 but little urine output, otherwise refer to documentation
[2024-05-11 03:16] LABS: Glucose - Point of Care 131 mg/dl (70-99)
[2024-05-11] MEDS: ZOSYN 50 IV ×2 (03:29→20:10)
[2024-05-11 04:22] LABS: Hematocrit 30.9 % (39.0-52.0); Hemoglobin 9.8 g/dL (13.0-18.0); Mean Corp Hgb Conc. 31.7 g/dL (33.0-37.0); Mean Corpuscular Hgb 28.8 pg (27.0-31.0); Mean Corpuscular Volume 90.9 fL (80.0-94.0); Mean Platelet Volume 10.4 fL (7.4-10.4); Platelet Count 119 10^3/uL (130-400); Red Cell Dist. Width 16.6 % (11.5-14.5); White Blood Cell Count 5.6 10^3/uL (4.8-10.8)
[2024-05-11 04:26] LABS: ALT (SGPT) < 10 U/L (0-50); AST (SGOT) 17 U/L (17-59); Albumin 1.8 g/dl (3.5-5.0); Alkaline Phosphatase 137 U/L (38-126); Blood Urea Nitrogen 31 mg/dl (9-20); Calcium 7.1 mg/dl (8.4-10.2); Carbon Dioxide 26 mmol/L (22-30); Chloride 97 mmol/L (98-107); Estimated Creatinine Clearance 13 ml/min; Glucose 109 mg/dl (70-99); Magnesium 2.2 mg/dl (1.6-2.3); Sodium 133 mmol/L (135-145); Total Bilirubin 0.7 mg/dl (0.2-1.3); Total Protein 4.2 g/dl (6.3-8.2); eGFR 13.82
--- NOTE | 2024-05-11 04:30 | PTCARENOTE ---
systems reviewed, pt dsat 60's NRB applied after attempts @ increasing NC and having pt take deep breaths, pt recovered NRB removed NC @ 5L, SpO2 95%, labs sent, otherwise refer to documentation.
--- NOTE | 2024-05-11 05:31 | W.PN.GI.CBS2 ---
Today's Communication / Plan
-
Please see assessment and plan for details.
Assessment / Plan
-
1. GI bleed : Secondary to large duodenal ulcer with clot, unable to be removed, status post epi and EndoClot, with likely 1 episode of recurrent rebleeding with negative CT angiogram, though has remained stable since then, with hemoglobin that
responded appropriately to transfusion. Antiplatelet and anticoagulation is difficult clinical scenario given A-fib and coronary disease, though stent more than a year ago, in sinus rhythm now. Given adherent clot and unable to visualize would
continue to hold for now. Continue PPI twice daily for now.
2. Abdominal pain: New, with distention, and CT scan with severe enteritis, worry for intestinal ischemia given presentation. His abdominal distention is likely more from enteritis/ileus now, really not significant ascites on CT scan, with
increased tympany now, patient refused attempted paracentesis yesterday. Again concern for ischemic enteritis given CT findings, and pneumatosis. His tenderness is improved today, though has been relatively hypotensive, on IV fluids after was
relatively euvolemic on dialysis yesterday. At this point we will continue supportive care, IV antibiotics for now, clear liquids. Will check obstruction series given increased tympany today.
Subjective
Subjective
Date of Service: May 11, 2024
Patient states he is feeling okay this morning, his mental status is better than yesterday morning though still slightly confused. He still has left-sided abdominal pain. No bowel movements, no vomiting. He has been relatively hypotensive
overnight with blood pressure into the 80s to 90s, now on IV fluids. He has been relatively hypoxic also at times per nursing, down into the 70s, documented in the 80s, temporarily on nonrebreather, though more when he is sleeping and better when
he is awake. No fevers or chills overnight.
Objective
Data Reviewed
Laboratory Data:
Laboratory Results
05/11/24 03:36
05/11/24 03:36
Laboratory Results
PT 16.6 Sec (11.4-14.6) H 05/10/24 07:46
INR 1.29 05/10/24 07:46
APTT 35.0 Sec (23.4-35.0) 05/10/24 07:46
Phosphorus 5.5 mg/dl (2.5-4.5) H 05/10/24 07:46
Magnesium 2.2 mg/dl (1.6-2.3) 05/11/24 03:36
Total Bilirubin 0.7 mg/dl (0.2-1.3) 05/11/24 03:36
AST 17 U/L (17-59) 05/11/24 03:36
ALT < 10 U/L (0-50) 05/11/24 03:36
Alkaline Phosphatase 137 U/L (38-126) H 05/11/24 03:36
Vital Signs and I&O:
Vital Signs
Temp Pulse Resp BP Pulse Ox
98.6 F 75 24 99/47 95
05/11/24 03:25 05/11/24 05:00 05/11/24 05:00 05/11/24 05:00 05/11/24 05:00
I&O
05/09/24 05/10/24 05/11/24
06:59 06:59 06:59
Intake Total 540 / 550 880 / 880
Output Total 1095 / 1095 310 / 310 60 / 60
Balance -1095 / -1095 230 / 240 820 / 820
Physical Exam
Physical Exam
General: NAD, more alert than yesterday, oriented x 2
Abdomen: Few bowel sounds, moderately distended with increased tympany, mild left-sided tenderness which is improved from yesterday, no rebound
[2024-05-11 07:10] LABS: Glucose - Point of Care 141 mg/dl (70-99)
--- NOTE | 2024-05-11 07:27 | W.PN.HOSP.TC ---
Addendum entered and electronically signed by Tammi Alejandro MD 05/11/24 14:54:
Patient was seen earlier at 9 AM today. Late documentation
I saw and evaluated the patient. I reviewed the resident�s note and agree with findings and plan as documented in the resident�s note except for changes in documentation
On examination patient was awake and alert
Abdominal pain present
Cardiovascular system S1-S2
Chest decreased breath sounds at bases
Abdomen diffusely tender mostly on the left side
# Perforated viscus
Going to OR today
Continue supportive care and IV antibiotics
Sepsis secondary to catheter related UTI
Neurogenic bladder with chronic Valverde catheter change in the ER
05/04/24 CT a/p severe bilateral hydroureter. No stones. Severe bladder distention to above level of umbilicus.
05/07 CT a/p; right renal subcapsular hematoma vs seroma vs urinoma
Cultures with Klebsiella currently on cefazolin
Completed CBI secondary to purulence
IR reviewed the patient's imaging. Left hydronephrosis improved since 05/07/2024. Likely related to Valverde decompression. Left PCN not advised
Neurogenic bladder with chronic Valverde catheter exchanged in the ER
# End-stage renal disease at this point-started on dialysis Wednesday. Has a tunneled HD catheter placed- for UF today
# New onset atrial fibrillation-plan on anticoagulation when stable from surgical stance
# HHNK-was on Tresiba as outpatient held was placed on insulin drip. NovoLog insulin on hold. Morning blood sugars elevated so changed to Lantus 12 in am Hemoglobin A1c was 9.6 on admission. Unclear if is reliable with anemia.
# Thrombocytopenia-watch
# TME-multifactorial- watch
# Hyponatremia- watch
# Anemia acute blood loss anemia and anemia of chronic disease
# Elevated LFTs- Improving. Possible shock liver secondary to hypotension
# Vitamin D deficiency-replace when able to take PO
# Secondary hyperparathyroidism
# Essential hypertension-Hold Coreg and amlodipine
# Hyperlipidemia-Hold statin
# Coronary artery disease with stent 2021. Hold statin and beta-elsie as NPO. Prasugrel stopped when patient was started on Eliquis ( AC on hold now)
# Indeterminate 1.4 cm left adrenal nodule
# Hypoalbuminemia-albumin 1.8
# DVT prophylaxis- SCDs
# CODE STATUS-DNR
Discussed with GI
Discussed with Dr. Diaz who spoke to patient's today
Discussed with ICU
Total Critical Care Time 35 minutes. I was immediately available to the patient and staff. I personally examined, reviewed labs, diagnostic images/reports, interpretations, treatment plans, discussed patient care with other providers entered
orders as appropriate and documented the medical record.
Original Note:
Today's Communication/Plan
-
OR
Continue abx
obstruction series
hd tomorrow
continue ivf
Assessment / Plan
Assessment / Plan
83-year-old male with known past medical history of essential hypertension currently on multiple drugs, insulin-dependent diabetes, neurogenic/atonic bladder with chronic Valverde catheter, coronary artery disease/SD 3 years ago s/p cardiac stenting
and currently on prasugrel and CKD 3B presented with his due to confusion and lethargy for few days. Hb dropped after started on eliquis for new onset a fib. Currently on hold.
#UGIB
#PUD
# abdominal pain
unclear if it is related to eliquis use since he was on prasugrel before
-Status post 8 units of PRBC total this hospital stay
-Developed dark maroon stools after being started on Eliquis last week
-EGD showed nonbleeding peptic ulcer and a large duodenal ulcer with clot adherent
-Currently on IV PPI BID; IR for embolization/other intervention to the GDA if more bleeding
-NPO previously per GI recs given recent abdominal pain after restarting diet and updated Ct findings; consistent with pneumatosis and area of severe enteritis on the left side
-advanced to clear liquids
-per GI hold anticoagulants; cardio recommend to start single agent eliquis when ok by GI
-May consider second look EGD in the next few days for better visualization and risk stratification, at a minimum would wait 1 week prior to restarting.
-OR today per surgery for possible perf and ischemia
- refused para yesterday
-obstruction series today given increase in tampany per GI
- IV fluid d5/0.45%
#Sepsis due to CAUTI - POA
#Neurogenic bladder with chronic valverde catheter
-urine culture showed Klebsiella pneumonia
-started Zosyn given recent increase in abd pain and concern for infection
-appreciate urology recs-continue valverde
-Will need outpatient follow-up with urology
-Continue finasteride, tamsulosin; continue with Valverde at discharge
- IR recommend to hold off on PCN for now
#New onset ESRD
#H/O CKD 3B
-Has been initiated on HD every M// with nephrology here; HD today
-Had tunneled HD cath placed for long-term dialysis access; Right UE swelling, ordered US
-Recent CT showed ongoing obstructive uropathy, now s/p Valverde catheter
-Trend daily BMP, continue with dialysis as scheduled
-Will need follow-up at discharge with nephrology and urology
-HD tomorrow
#New onset Atrial fibrillation
-[id number] score 5, nonvalvular
-Was already on rate controlling agent with home carvedilol
-Was started on Eliquis here though currently held for presumed UGIB as above
-cardio recommend to start single agent eliquis when ok by GI
#Type 2 DM
-Home medications include Lantus, NovoLog, Tresiba; previously on Farxiga
-Had severe hyperglycemia on arrival, suspected to be HHS, now improved
-Blood glucose currently stable onn low resistance ssc insulin
#CAD s/p PCI
-Had PCI in 2021; Home meds include high intensity statin, beta-elsie, prasugrel
-Due to occurrence of new onset AF, prasugrel was transition to Eliquis
-Eliquis currently held due to GI bleeding as above
#Essential HTN
-Home medications include carvedilol, amlodipine
-No known history of hypertensive systemic diseases
-soft Blood pressure- hold meds
#HLD
-continue statin
#Elevated LFTs
-Likely secondary to infection/sepsis, reduced perfusion
-Resolved
#Toxic metabolic encephalopathy
-Likely multifactorial with sepsis, possible HHS/severe hyperglycemia
-Improved/resolving with correction of issues shown above
-Pt/Ot
Code status: DNR
Diet: CLD
DVT prophylaxis: SCDs
Anticipated Discharge: > 48 hours
Subjective/Interval History
-
Date of Service: May 11, 2024
abdominal distension, trouble breathing last night
Objective Data
-
Labs:
Laboratory Results
05/11/24
03:36
WBC 5.6
Hgb 9.8 L
Hct 30.9 L
Plt Count 119 L D
Sodium 133 L
Potassium 5.0
Chloride 97 L
Carbon Dioxide 26
BUN 31 H
Creatinine 4.1 H*
Glucose 109 H
Calcium 7.1 L
Total Bilirubin 0.7
AST 17
ALT < 10
Alkaline Phosphatase 137 H
Vital Signs:
Vital Signs
Temp Pulse Resp BP Pulse Ox
98.6 F 78 24 112/48 95
05/11/24 03:25 05/11/24 06:00 05/11/24 06:00 05/11/24 06:00 05/11/24 06:00
I&O
05/10/24 05/11/24 05/12/24
06:59 06:59 06:59
Intake Total 540 / 550 1000 / 1000
Output Total 310 / 310 70 / 70
Balance 230 / 240 930 / 930
Review of Systems
-
History Source: Patient
Abdomen/GI: Reports Abdominal Pain; Denies Vomiting
Physical Exam
-
General: Well Developed, Comfortable, Appears Chronically Ill and Other (on 5 L o2 NC)
HEENT: Normocephalic and Atraumatic
Respiratory: Clear to Auscultation and Non Labored Respirations; Negative Accessory Resp Muscle Use
Cardiac: Regular Rhythm, S1/S2 and Murmur; Negative Rub or Gallop
GI: Soft, Tender (mild diffuse), Distended (progressed since yesterday) and Other (+ Guarding)
Musculoskeletal: No Clubbing, No Cyanosis and No Edema
Skin: Warm and Dry; Negative Rash
Neuro: AO x 3 and Nonfocal/Grossly Intact
Psych: Calm
Data Reviewed
-
Labs: Labs Reviewed by me, Discussed with Physician and Discussed with Patient
[2024-05-11] MEDS: NOVOLOG FLEXPEN-LOW RESISTANCE SC (07:33)
[2024-05-11] MEDS: PROTONIX IV 40 MG IV (07:39)
[2024-05-11] MEDS: PROSCAR 5 MG PO (07:40)
[2024-05-11] MEDS: NSS (PRESERVATIVE FREE) 10 ML IV (07:40)
--- NOTE | 2024-05-11 07:47 | PN.DE.MGMTRT ---
Insulin Management
- -
05/11/2024: Diabetes Management F/U:
Patient brought to ED with change of mental status, found to be in DKA. PMH CAD, HTN, diabetes, CKD 3b, UTI 1 month ago. Prior to admission was taking Tresiba 10 units @ hs. A1C on 03/22/24 was 8.5%--> A1C 9.6% this admission. Cr 6.3, eGFR
8.7-->5.3, eGFR 10.16
Glucose Patient was managed on insulin infusion and transitioned off on 04/28 to SQ Insulin.
Patient is off the floor to the OR, no family at bedside.
05/10 was made NPO due to suspected ischemic bowel/perforation and Probable small bowel pneumatosis seen on CT imaging 05/09/2024.
Plan for OR today for Exp lap. All insulin was placed on hold yesterday due to change in condition and while NPO.
Pt noted for an episode of Hypoglycemia as low as 63 at lunch time yesterday, improved with treatment, no further hypoglycemia, FBG 141 POC this AM.
Will continue to hold all standing dose insulin at this time. Will likely be initiated on insulin drip post-op if needed
Discussed with nurse and ICU team.
Diabetes History
- -
Type of Diabetes: 2 requiring insulin
Pre-Admission Diabetes Regimen
05/10/24 05/11/24
07:46 03:36
Creatinine 6.3 H* 4.1 H*
Lab Results
Hemoglobin A1c 9.6 % (4.0-5.6) H 04/27/24 06:06
Insulin Pump Settings
IP Diabetes Regimen
05/10/24 05/10/24 05/10/24
07:46 08:28 09:02
Glucose 51 L*
POC Glucose 63 L 99
05/10/24 05/10/24 05/10/24
11:26 14:34 15:18
Glucose
POC Glucose 76 63 L 110 H
05/10/24 05/10/24 05/10/24
17:04 18:43 23:06
Glucose
POC Glucose 105 H 135 H 132 H
05/11/24 05/11/24 05/11/24
03:05 03:36 06:58
Glucose 109 H
POC Glucose 131 H 141 H
Meal type: Dinner
Meal type: Breakfast
Amount consumed: 5%
Patient Education
[2024-05-11 08:13] LABS: Band Neutrophils 38 % (0-3); Lymphocytes 4 % (20-51); Monocytes 3 % (2-9); Myelocytes 2 % (-); Platelets Checked Yes; Segmented Neutrophils 53 % (42-75)
[2024-05-11 08:14] LABS: Acanthocytes 2+; Anisocytosis 1+; Hypochromasia 1+; Normal RBC Morphology No; Ovalocytes 1+; Polychromasia 1+
[2024-05-11 08:15] LABS: Burr Cells 1+; Total Cells Counted 100
--- NOTE | 2024-05-11 08:15 | PTCARENOTE ---
Complete assessment done and documented. Pt lethargic, but oriented x3, sl forgetful. Pt SR with first degree heart block, BP 110/58. +1-+2 generalized edema. seq TEDS on. Pt afeb. IVF at 40 ml/hr. Pt on 5l nc, lobes diminished throughout, O2
sat=94%, RR 24. ABD distended, very tender to palpation. No BMs, pt able to swallow po meds, on clear liq diet. Pt with R upper chest HD cath intact, R upper arm midline in place, and L FA int in place and flushed. Rosenthal cath in place with scant
yellow urine draining. R sacral foam drsg placed now for skin protection, mouth care done, and pt turned for comfort. Resident Dr Peterson in to see pt, and was updated.
--- NOTE | 2024-05-11 08:28 | W.PN.INTV ---
Today's Communication / Plan
Recommendations
Mechanical ventilation; daily SAT/SBT if clinically appropriate
Pain control
Postoperative management as per general surgery
PPI drip
NGT to LIWS
Avoid hypoglycemia; continue D5 1/2 NS
q4hr BG to closely monitor blood glucose levels
Continue to trend H&H and platelet levels
Hold off on chemical DVT prophylaxis given duodenal ulcer with perforation
Continue with ICU level of care for this critically ill patient
Assessment
-
83-year-old male with history of hypertension, CAD, diabetes, hyperlipidemia, chronic kidney disease who was recently in the hospital with a UTI treated with antibiotics and Rosenthal catheter was placed for persistent retention presented with
confusion, new onset atrial fibrillation, and hyperglycemia-tunnel heading inspector initally consulted for DKA/new onset atrial fibrillation/critical care management 04/27/2024. Patient has been managed in the IMU since 05/07/2024, and then due to worsening
abdominal pain with tachypnea and reported altered mental status he was transferred to the ICU overnight on 05/09District Manager In Training service is asked to reevaluate the patient for additional management/recommendations.
Impression:
Abdominal pain due to perforated duodenal bulb ulcer with secondary peritonitis s/p ex-lap with abdominal washout and repair of duodenal ulcer with omental pedicle flap (POD#0)
Toxic metabolic encephalopathy
Upper GI bleed due to duodenal ulcer currently on PPI gtt
Metabolic acidosis with increased AG
Hypoglycemia
Bacteremia-Klebsiella pneumonia due to UTI
ARISTEO on CKD now on HD
Moderate left hydronephrosis with persistent bilateral hydroureter (seen on CTA abdomen/pelvis from 05/07/2024)
Hyponatremia
Anemia
Thrombocytopenia
Leukocytosis with bandemia
Elevated ALP
Hx of new onset atrial fibrillation
Hypoalbuminemia
Conditions present prior to admission:
Hypertension.
Hyperlipidemia.
CAD/stent.
[id number]-[id number].
Neurogenic/atonic bladder with chronic Rosenthal catheter.
Chronic kidney disease stage IIIb.
Plan
He continues to endorse abdominal pain to palpation --> went to OR today and found to have perforated 1cm duodenal bulb ulcer with evidence of diffuse peritonitis with 4 L of bilious ascites suctioned s/p ex lap with abdominal washout and primary
repair of duodenal ulcer with omental pedicle flap
- Defer postoperative management to general surgery
- Follow up OR cultures
- Continue Zosyn
- Continue PPI gtt
- Keep NGT to low intermittent wall suction for decompression
- Hold tube feeds for now until told otherwise by general surgery
- Pain control
He returned to the ICU on mechanical ventilation
- Titrate FiO2 + PEEP to keep SpO2 >90 this 90%
- Maintain plateau pressure <30
- Nebulizers if needed - currently not bronchospastic
- Aspiration precautions
Patient hypoglycemic on AM of 05/10 --> follow blood sugar with q4hr POCT BG
- Continue D5 1/2NS at 40cc/hr
c/t trend H/H and TRX to keep Hb>7, plt>50k
Continue with HD as per nephrology
Trend potassium + serum sodium
Dialysis catheter inserted 04/28/2024 and HD initiated on 04/28/2204
Cultures reviewed
Patient previously had positive blood cultures on 04/26/2024 with Klebsiella pneumonia as well as urine culture on 04/26/2024 with Klebsiella pneumonia
- Repeat blood culture on 04/29/2024 and repeat urine culture on 05/04/2024 show NGTD
- ID was on board but then they signed off on 05/09/2024
- He was previously on Ancef from 05/02 - 05/08, s/p zosyn from 04/26 - 05/02 + rocephin x1 dose on 04/26; also got cefuroxime on 05/09 --> now back on Zosyn since 05/10
- Trend WBC and monitor for fevers
Cardiology following-correspondence reviewed
Monitor for recurrence of A-fib - currently in NSR with 1st degree AVB
Eventual transition to oral anticoagulant-Eliquis
Follow hemoglobin
Transfuse as needed to keep Hb>7, plt>50k given recent UGIB
DVT prophylaxis-SCDs; last blood TRX on 05/07/2024 (he has had 8 units PRBC this admission); hold off on chemical prophylaxis for now given he is s/p ex lap with perforated duodenal ulcer seen intraoperatively
Nutrition on hold given he is s/p ex-lap today
PT/OT once extubated
IC access: Midline in RUE --> PICC
Critical care statement: A total of 40 minutes of critical care time was provided for this patient today. This includes management of unstable vital signs, evaluation of the patient at bedside, reviewing the patient's pertinent medical records
including radiographs, microbiology, laboratory evaluations, and discussion with primary team, consultants, pharmacy, nutrition, physical therapy, case management, charge nurse, critical care nursing, and respiratory therapy.
Data:
CT abdomen/pelvis with IV contrast 04/09/2024:
Small bowel loops in the left hemiabdomen with wall thickening and a few small scattered foci of gas that appear to be centered within the small bowel wall raising concern for pneumatosis and ischemic enteritis.
Several loops of small bowel in the left abdomen with moderate circumferential wall thickening. Differential diagnoses include inflammation, infection and less likely ischemia. New.
Moderate abdominopelvic ascites. Progressed.
Moderate bilateral pleural effusions.. Progressed bilaterally.
Moderate left lower lobe consolidation. Stable. Mild right lower lobe consolidation. Stable. Probably atelectasis.
Moderate subcapsular right perinephric fluid collection. Differential diagnosis includes hematoma, seroma and less likely infection. Stable. Associated stable compressive effects on the renal parenchyma.
Small hypodense right renal lesion decreased in size. This may represent a benign cyst. Infection an malignancy cannot be excluded. Severity evaluated by MRI examination.
Moderate air and Rosenthal catheter in the bladder. Stable.
Findings suggesting volume overload or third spacing. Stable.
Chest x-ray 04/26/2024-no focal consolidations, pleural effusions or pneumothorax
CT abdomen/pelvis with IV contrast 05/09/2024: compared to prior CTA A/P on 05/07/2024
Small bowel loops in the left hemiabdomen with wall thickening and a few small scattered foci of gas that appear to be centered within the small bowel wall raising concern for pneumatosis and ischemic enteritis.
Moderate abdominopelvic ascites. Progressed.
Moderate bilateral pleural effusions.. Progressed bilaterally.
Moderate left lower lobe consolidation. Stable. Mild right lower lobe consolidation. Stable. Probably atelectasis.
Moderate subcapsular right perinephric fluid collection. Differential diagnosis includes hematoma, seroma and less likely infection. Stable. Associated stable compressive effects on the renal parenchyma.
Small hypodense right renal lesion decreased in size. This may represent a benign cyst. Infection an malignancy cannot be excluded. Severity evaluated by MRI examination.
Moderate air and Rosenthal catheter in the bladder. Stable.
Findings suggesting volume overload or third spacing. Stable.
Subjective Dataa
Subjective Data
Date of Service:
Date of Service: May 11, 2024
Chief Complaint: District Manager In Training Follow Up
Subjective:
Patient seen and evaluated this morning. Worsening abdominal distention and tenderness this morning. Being brought to OR for ex-lap. On 5L/min with sats 94%, BP 113/49, NH 79. Remans on D5-1/2NS at 40cc/hr.
Review of Systems
General: Other (Negative unless mentioned above)
Objective Data
Data Reviewed
Vital Signs / I&O / Oxygen:
Vital Signs
Temp Pulse Resp BP Pulse Ox
97.6 F 78 24 112/48 94
05/11/24 08:08 05/11/24 06:00 05/11/24 06:00 05/11/24 06:00 05/11/24 08:14
Intake and Output
05/10/24 05/11/24 05/12/24
06:59 06:59 06:59
Intake Total 540 / 550 1000 / 1040 80 / 80
Output Total 310 / 310 70 / 70 5 / 5
Balance 230 / 240 930 / 970 75 / 75
SaO2 94
Nasal Cannula flow liters per 5
minute
Physical Exam
General: Respiratory Distress (n), Pain (abdomen), Chills (n) and Sweats (n)
HEENT: Normocephalic, Anicteric and Moist Mucous Membranes
Cardiovascular: Regular Rhythm and Peripheral Edema (negative)
Respiratory: Wheeze (n), Crackles (Bibasilar), Rhonchi (n), Non-Labored Respirations, Accessory Resp Muscle Use (n), Stridor (n) and Other (Diminished breath sounds)
GI: Soft, Distended (Tense), Non Tender and Other (Positive fluid wave appreciated on abdomen palpation)
Neurology: Awake, Alert and Tremors (negative)
Skin: Warm, Dry, Cyanosis (n) and Jaundice (n)
Labs/Micro/Reports
Lab Data
05/11/24 03:36
05/11/24 03:36
--- NOTE | 2024-05-11 08:53 | PTCARENOTE ---
Pt seen by Dr Medrano, who spoke with pt, and called pt's on the phone. It was then decided for pt to go to surgery today for an exploratory lap.
--- NOTE | 2024-05-11 08:59 | W.PN.GS2 ---
Today's Communication / Plan
-
`
Assessment / Plan
-
Assessment: 83-year-old male with suspected ischemic bowel/perforation.
Probable small bowel pneumatosis seen on CT imaging 05/09/2024. There is also free air in the central anterior abdomen.
Peritonitic on examination diffusely.
Discussed with patient's , patient and medical services concern for a reversible ischemia and possible perforation given free air on CT imaging previously not present and probable small bowel pneumatosis. Given rebound and guarding on
examination and these findings discussed with patient and his probable need for urgent surgical management/evaluation. They are both in agreement to proceed with surgery rather than trial of continued expectant/medical management.
Diagnostic laparoscopy, probable laparotomy, probable bowel resection/possible repair perforated viscus (DU/) procedure was reviewed in detail with patient's including potential operative findings and the management, potential need for
planned return trips to the OR for management, continue postoperative ICU care and likely postoperative mechanical ventilation, probable lengthy postoperative recovery and eventual need for shelter care. We discussed potential risks of
surgery including bleeding requiring transfusion, infectious and wound related complications, iatrogenic injury to surrounding viscera and anastomotic related complications if bowel resection required.
Any of the patient's 's concerns or questions were fully addressed and informed consent was obtained through her with acknowledgment of the patient as well.
Plan: Patient on our schedule today diagnostic laparoscopy, probable laparotomy, probable bowel resection, possible repair of perforated viscus
N.p.o. Zosyn
And continue supportive care.
Subjective Data
-
Date of Service: May 11, 2024
Patient seen and examined.
Nursing at bedside.
Discussed with patient's via phone call.
While resting in bed denies abdominal pain if laying still and not moving
Pain present on palpation or movement
Anorexia
No vomiting
Objective Data
-
Intake and Output
05/10/24 05/11/24 05/12/24
06:59 06:59 06:59
Intake Total 540 / 550 1000 / 1040 80 / 80
Output Total 310 / 310 70 / 70 5 / 5
Balance 230 / 240 930 / 970 75 / 75
Intake:
Oral fluids 410 / 410 280 / 280
IV fluids (Total) 130 / 140 620 / 660 80 / 80
D5/0.45%NaCl 1,000 ml @ 40 mls/ 520 / 560 80 / 80
hr IV .Q24H [facility] Rx#:[id number]
Protonix 10 / 20 100 / 100
IV piggybacks 100 / 100
Output:
Urine, Rosenthal 310 / 310 70 / 70 0 / 0
Urine, Voided 5 / 5
Vital Signs
Temp Pulse Resp BP Pulse Ox
97.6 F 78 24 112/48 94
05/11/24 08:08 05/11/24 06:00 05/11/24 06:00 05/11/24 06:00 05/11/24 08:14
Lab Results
05/11/24 03:36
05/11/24 03:36
Calcium 7.1 mg/dl (8.4-10.2) L 05/11/24 03:36
Phosphorus 5.5 mg/dl (2.5-4.5) H 05/10/24 07:46
Magnesium 2.2 mg/dl (1.6-2.3) 05/11/24 03:36
Total Bilirubin 0.7 mg/dl (0.2-1.3) 05/11/24 03:36
AST 17 U/L (17-59) 05/11/24 03:36
ALT < 10 U/L (0-50) 05/11/24 03:36
Alkaline Phosphatase 137 U/L (38-126) H 05/11/24 03:36
Total Protein 4.2 g/dl (6.3-8.2) L 05/11/24 03:36
Albumin 1.8 g/dl (3.5-5.0) L 05/11/24 03:36
Physical Exam
-
Acutely ill-appearing, oriented to self and location but some confusion
ABD: Distended, guarding and rebound tenderness diffusely on palpation. Percussion tenderness as well.
--- NOTE | 2024-05-11 09:14 | W.PN.NEPH.PH ---
Today's Communication / Plan
-
Renal replacement therapy to be ordered for tomorrow
For OR intervention for likely ischemic bowel today
Assessment/Plan
-
Assessment
Hypertension
ARISTEO
DKA
Metabolic acidosis
Lactic acidosis
Hyperkalemia
Hyponatremia
azotemia
Neurogenic bladder with bilat hydro
Coronary artery disease
E faecalis urosepsis
Plan:
ARISTEO is likely due to combination of neurogenic bladder in setting of severe DKA
hb stable at 9.8 range
IR did not favor PCN intervention for obstructive uropathy
Patient to proceed to the OR for ischemic bowel resection today
Continues with Zosyn at appropriate dosage for ESRD
mild hypocalcemia-vit D low, PTH 103 appropriately high-add vit D2
Hemodialysis and/or CRRT will be planned following surgical intervention for tomorrow
-
-
Date of Service: May 11, 2024
CC / HPI / ROS
-
Chief Complaint:
ARISTEO
History of Present Illness:
ARISTEO/Cr now on dialysis support
Hemodynamically stable
CT abd shows bilateral hydro and bladder distension 05/05
hb stable at 9.9 range
Review of Systems:
no fevers
Abdominal pain
no nausea or vomiting
no CP or sob
right UE edema 2+
Labs
-
Labs:
WBC 5.6 10^3/uL (4.8-10.8) 05/11/24 03:36
RBC 3.40 10^6/uL (4.70-6.10) L 05/11/24 03:36
Hgb 9.8 g/dL (13.0-18.0) L 05/11/24 03:36
Hct 30.9 % (39.0-52.0) L 05/11/24 03:36
Plt Count 119 10^3/uL (130-400) L D 05/11/24 03:36
Sodium 133 mmol/L (135-145) L 05/11/24 03:36
Potassium 5.0 mmol/L (3.5-5.1) 05/11/24 03:36
Chloride 97 mmol/L (98-107) L 05/11/24 03:36
Carbon Dioxide 26 mmol/L (22-30) 05/11/24 03:36
BUN 31 mg/dl (9-20) H 05/11/24 03:36
Creatinine 4.1 mg/dL (0.7-1.3) H* 05/11/24 03:36
eGFR 13.82 05/11/24 03:36
Glucose 109 mg/dl (70-99) H 05/11/24 03:36
Calcium 7.1 mg/dl (8.4-10.2) L 05/11/24 03:36
Phosphorus 5.5 mg/dl (2.5-4.5) H 05/10/24 07:46
Albumin 1.8 g/dl (3.5-5.0) L 05/11/24 03:36
Physical Exam
-
Vital Signs:
Vital Signs
Temp Pulse Resp BP Pulse Ox
97.6 F 78 24 112/48 94
05/11/24 08:08 05/11/24 06:00 05/11/24 06:00 05/11/24 06:00 05/11/24 08:14
Cardiovascular:: Regular rate and rhythm
Respiratory:: Bilateral: CTA
Lung Excursion:: Normal
Abdomen:: Nontender and Soft
Extremity Edema:: +1: Bilateral:
Rosenthal Catheter: Yes
--- NOTE | 2024-05-11 09:26 | PTCARENOTE ---
Report given to Shirley CASSIDY from the OR, pt then brought to OR holding area with chart, rn review, IVF, O2 5l nc, via bed. Pt did not eat breakfast today. Receiving staff made aware that pt needs his OR consent form signed.
--- NOTE | 2024-05-11 09:38 | W.SUR.PREOP ---
Pre-Operative Surgical Note
-
I have examined this patient prior to the performance of the scheduled procedure.
The patient's condition is unchanged from the time of the current History and
Physical and the patient is able to undergo the scheduled procedure.
--- NOTE | 2024-05-11 09:40 | W.PN.ID1 ---
Date of Service
Date of Service: May 11, 2024
Today's Communication
Continue Zosyn (d2) pending OR findings and cultures.
Assessment / Plan
# Acute small bowel perforation
- CT a/p: left abdomen SB loops with wall thickening and few foci of gas
- To OR today.
- Continue Zosyn (d2) pending OR findings and cultures.
# s/p recent UGI bleed
# s/p Blood loss anemia
- s/p EGD: large duodenal ulcer with clots
# s/p Klebsiella complicated UTI with bacteremia
# Severe b/l hydroureter/hydronephrosis
# right renal subcapsular hematoma vs seroma vs urinoma
# Atonic bladder with chronic valverde
# ARISTEO on CKD now on HD
- pt declined lpercutaneous nephrostomy.
Per IR left hydro somewhat improved with CBI, valverde decompression and perc neph unlikely to help with renal function.
- Completed 14d of abx through 05/10/24.
Chief Complaint
-: Other (Bowel perforation)
Subjective / Review of Systems
Reconsulted for bowel perforation.
Developed acute abdominal pain 2 days ago. Now enroute to OR.
Vital Signs / Physical Exam
Vital Signs
Vital Signs
Temp Pulse Resp BP Pulse Ox
97.6 F 78 24 112/48 94
05/11/24 08:08 05/11/24 06:00 05/11/24 06:00 05/11/24 06:00 05/11/24 08:14
Physical Exam
Constitutional: Acutely Ill
Eyes: Sclera Anicteric
Cardiovascular: Regular Rate and S1/S2
Pulmonary: Other (decreased BS at bases)
Gastrointestinal: Soft, Tender (diffuse), Distended and Decreased Bowel Sounds
Genito-Urinary: Valverde; Negative Hematuria
Neurological: Awake and Alert
Objective Data
Lab Data
Lab Results
05/11/24 03:36
05/11/24 03:36
PT 16.6 Sec (11.4-14.6) H 05/10/24 07:46
INR 1.29 05/10/24 07:46
APTT 35.0 Sec (23.4-35.0) 05/10/24 07:46
Estimated Creat Clear 13 ml/min 05/11/24 03:36
Lactic Acid 0.7 mmol/L (0.7-2.0) 04/28/24 12:05
Total Bilirubin 0.7 mg/dl (0.2-1.3) 05/11/24 03:36
AST 17 U/L (17-59) 05/11/24 03:36
ALT < 10 U/L (0-50) 05/11/24 03:36
Alkaline Phosphatase 137 U/L (38-126) H 05/11/24 03:36
Most recent labs reviewed.
Micro Results:
05/04/24 13:55 Urine Culture - Final
Urine NO GROWTH
04/29/24 09:09 Blood Culture - Final
Blood/Venous No Growth - Final Report
04/27/24 14:16 Blood Culture - Final
Blood/Venous No Growth - Final Report
04/26/24 15:46 Urine Culture - Final
Urine Klebsiella pneumoniae
04/26/24 19:21 Blood Culture - Final
Blood/Venous Klebsiella pneumoniae
Gram Stain - Final
04/26/24 15:02 Blood Culture - Final
Blood/Venous Klebsiella pneumoniae
Gram Stain - Final
04/27/24 Renal US: Bilateral hydronephrosis, moderate left and mild right.
05/04/24 CT a/p wo IV contrast: Severe bilateral hydroureter. No obstructing radiopaque stones are noted. Possible subcapsular right renal fluid collection. Limited evaluation without IV contrast. Renal masses and masses of the collecting system
and bladder cannot be excluded without IV contrast. Mild prostate hypertrophy.
05/07/24 CTa/p: 1. Negative for active gastrointestinal hemorrhage. As above, there is gastric and duodenal mucosal hyperenhancement, but no active bleeding is identified. Patient's known duodenal ulcer is not well seen at CT.
2. Persistent moderate left hydronephrosis and persistent bilateral hydroureter. As above, there is abnormal appearance of the right kidney with subcapsular collection which nearly completely surrounds the kidney. There are associated compressive
changes of the right kidney with diminished enhancement and misshapen cortex. There is mild prominence of the right renal collecting system, no marked hydronephrosis. Collection shows greater than simple fluid attenuation and could represent old
hematoma/seroma. Urinoma is also a diagnostic consideration. Presence or absence of superimposed infection cannot be determined by this examination. 3. Valverde catheter in position within decompressed urinary bladder. Diffuse marked urinary bladder
wall thickening related to either chronic outlet obstruction or neurogenic bladder.
05/09/24 CT a/p: Several loops of small bowel in the left abdomen with moderate circumferential wall thickening. Moderate abdominopelvic ascites. Progressed. Moderate bilateral pleural effusions.. Progressed bilaterally. Moderate left lower lobe
consolidation. Stable. Mild right lower lobe consolidation. Stable. Probably atelectasis. Moderate subcapsular right perinephric fluid collection. Differential diagnosis includes hematoma, seroma and less likely infection. Stable. Associated stable
compressive effects on the renal parenchyma. Addendum: Small bowel loops in the left hemiabdomen with wall thickening and a few small scattered foci of gas that appear to be centered within the small bowel wall raising concern for pneumatosis and
ischemic enteritis.
--- NOTE | 2024-05-11 10:21 | CM ---
Chart reviewed and plan is for possible OR today, patient for skilled placement at [facility] when stable where patient can receive on site HD. Other options were reviewed including [facility] but family decided on [facility] per notes.
Plan; Skilled placement at [facility] when stable, patient is a new HD patient and referral sent to [facility] to have patient evaluated for [facility] unit in [place] after rehab.
[2024-05-11 10:31] LABS: B.E. - POC -0.8 mmol/L; Glucose - POC 146 mg/dl (70-99); HCO3 - POC 24 mmol/L (21-28); Hematocrit - POC 28 % PCV (42-52); Hemodilution- POC No; Hemoglobin Calculated - POC 9.6; O2 Saturation %Calculated-POC 97.8 % (94-98); PCO2 - POC 39 mmHg (35-48); PO2 - POC 102 mmHg (83-108); Potassium - POC 4.8 mmol/L (3.5-5.1); Sodium - POC 133 mmol/L (136-145); Specimen Type - POC Arterial; pH - POC 7.39 (7.35-7.45)
--- NOTE | 2024-05-11 11:39 | W.IMMPOSTOP ---
Addendum entered and electronically signed by Abhishek Diaz MD 05/11/24 12:49:
#[id number]
Original Note:
Surgical Immed Post Op Note
-
Primary Surgeon: Emily
Assisting Surgeon: Katelyn TAYLOR
Pre-op Diagnosis: Peritonitis, free air
Post-op Diagnosis: Perforated duodenal bulb ulcer
Procedure Performed: Dx Lap; Exploratory laparotomy abdominal washout, primary repair duodenal bulb ulcer with omental pedicle flap
Anesthesia Type: GETA +0.25% Marcaine
Specimen / Cultures: None/peritoneal fluid
Estimated Blood Loss: 20 mL
Complications: None immediate
Operative Findings: Diffuse peritonitis; 4 L of bilious ascites. Perforated duodenal bulb ulcer - 1 cm. Ulcer closed primarily with subsequent omental pedicle flap to buttress repair. Copiously washed out abdomen until clear. Cultures obtained.
Plan: Returning to ICU intubated
Protonix drip postoperatively
Continue antibiotics
MEREDITH
N.p.o. NG tube decompression
Ongoing postoperative resuscitation
Updated medical services postop regarding operative findings
[2024-05-11] MEDS: NOVOLOG FLEXPEN-LOW RESISTANCE 1 UNITS SC (12:30)
[2024-05-11] MEDS: PROTONIX IV 80 MG IV (12:50)
[2024-05-11 12:57] LABS: Glucose - Point of Care 154 mg/dl (70-99)
[2024-05-11] MEDS: ZOSYN IV (13:00)
[2024-05-11] MEDS: PROTONIX 100 IV ×2 (13:00→22:29)
[2024-05-11] MEDS: D5/0.45%NACL 1000 IV (13:11)
--- NOTE | 2024-05-11 13:47 | SUR.OPER ---
Pt returned from the OR to ICU to be recovered. Pt s/p exp lap, showing a perf ulcer, which was repaired/patched, reported 4 L of fluid removed from peritoneal space. R abd MEREDITH/Joel drain with pink cloudy fluid (35 ml) emptied. Raul Patel now in
place, with + cuff correlation. Pt back to ICU with IVF NS infusing, changed back to D5 1/2 ns at 40ml/hr as per Dr Avendano. Levophed received at 10 mcg/min, will wean as tolerated following protocol. Protonix drip started at 8 mg/hr. Pt CHG washed
and valverde care done. Pt received intubated with vent settings AC 14, TV 500, peep 5 and 100%, fio2 decreased to 50%, O2 sat presently 96%. Scant drainage from valverde. Pt's and son to room and were able to see their /dad, and update given.
They were encouraged to call for a update if they wanted, as they decided to go home after their visit, and come back again tomorrow. Dr Avendano to room and updated. ABG being drawn now. Pt was not reversed in the OR, and is not answering to
commands at this time.
[2024-05-11 14:34] LABS: B.E. -2.6 mmol/L; HCO3 21.6 mmol/L (21-28); PCO2 34 mmHg (35-48); pH 7.41 (7.35-7.45)
[2024-05-11 14:36] LABS: O2 Saturation % 99.3 % (94-98); PO2 97 mmHg (83-108)
--- NOTE | 2024-05-11 14:43 | PTCARENOTE ---
ABG results discussed with Dr Avendano, and pt to stay at present settings AC 14, 500 TV, 50%, peep 5, overnight, and will plan to wean tomorrow as tolerates. Levophed weaned down to 4 mcg/min presently. Pt will open eyes to his name, +PERRL, will
nod appropriately, and KARELY bilat to command.
[2024-05-11] MEDS: NOVOLOG FLEXPEN-LOW RESISTANCE 2 UNITS SC (17:03)
[2024-05-11 17:13] LABS: Glucose - Point of Care 217 mg/dl (70-99)
--- NOTE | 2024-05-11 17:37 | PTCARENOTE ---
Pt seen by Dr Mcduffie from urology, who flushed pt's valverde cath, no sediment noted. Pt for HD tomorrow. BP MAP 62-70. Levophed remains at 4 mcg/min. Pt denies any pain at this time, and shook his head no that he doesn't want any pain medication at
this time. Pt turned and made comfortable.
[2024-05-11] MEDS: LEVOPHED 250 IV (18:38)
--- NOTE | 2024-05-11 19:30 | PTCARENOTE ---
received report, dual RN med rec @ bedside, pt intubated no sedation denies pain, nods head appropriately, pupils 3 equal and reactive follows commands CALI, NSR first degree block on monitor, + 2 UE +1 anasarca, weak radials doppler pedals, B/L
scds, #8 ETT 24cm @ the lip on the R, AC 14/500/5/50, BSx4 hypoactive [place] sump 78cm R nare to Low intermittent suction, R abd MEREDITH, 3 way valverde oliguric, buttock red blanchable, post op ab dressing on abd no drainage dry and intact, R midline, LFA,
R HD subq cath, L hand, leavo 4mcg/15, protonic 8/10ml, D5 1/2 NS 40ml, b/l wrist restraints, otherwise refer to documentation.
[2024-05-11] MEDS: SUBLIMAZE 50 MCG IV (20:07)
[2024-05-11] MEDS: SUBLIMAZE 100 IV (20:30)
--- NOTE | 2024-05-11 21:00 | PTCARENOTE ---
pt suctioned became agitated and restless, fent bolus given fent gtt started per order, levo gtt titrated per worklist
[2024-05-11] MEDS: NSS (PRESERVATIVE FREE) IV (21:15)
[2024-05-11] MEDS: NOVOLOG FLEXPEN-LOW RESISTANCE 3 UNITS SC (23:57)
[2024-05-12 00:06] LABS: Glucose - Point of Care 296 mg/dl (70-99)
[2024-05-12 00:28] LABS: B.E. -5.4 mmol/L; HCO3 18.8 mmol/L (21-28); Ionized Calcium 1.08 mMOL/L (1.15-1.33); O2 Saturation % 97.8 % (94-98); PCO2 31 mmHg (35-48); PO2 78 mmHg (83-108); Potassium 5.6 mMOL/L (3.5-5.1); Sodium 126 mMOL/L (136-145); pH 7.39 (7.35-7.45)
[2024-05-12 00:41] LABS: Hematocrit 29.8 % (39.0-52.0); Hemoglobin 9.7 g/dL (13.0-18.0); Mean Corp Hgb Conc. 32.6 g/dL (33.0-37.0); Mean Corpuscular Hgb 29.4 pg (27.0-31.0); Mean Corpuscular Volume 90.3 fL (80.0-94.0); Mean Platelet Volume 11.1 fL (7.4-10.4); Platelet Count 126 10^3/uL (130-400); Red Cell Dist. Width 16.1 % (11.5-14.5); White Blood Cell Count 12.8 10^3/uL (4.8-10.8)
[2024-05-12 01:07] LABS: Blood Urea Nitrogen 42 mg/dl (9-20); Carbon Dioxide 20 mmol/L (22-30); Chloride 98 mmol/L (98-107); Estimated Creatinine Clearance 12 ml/min; Glucose 270 mg/dl (70-99); Magnesium 2.2 mg/dl (1.6-2.3); Potassium 5.8 mmol/L (3.5-5.1); Sodium 131 mmol/L (135-145)
[2024-05-12] MEDS: SUBLIMAZE 50 MCG IV (01:23)
[2024-05-12] MEDS: NOVOLOG FLEXPEN 4 UNITS SC (01:24)
[2024-05-12] MEDS: LEVOPHED 250 IV ×2 (01:32→05:47)
[2024-05-12] MEDS: CALCIUM CHLORIDE 10% SYRINGE 60 MG IV (01:55)
[2024-05-12 03:16] LABS: Glucose - Point of Care 306 mg/dl (70-99)
[2024-05-12] MEDS: ZOSYN 50 IV ×3 (03:25→22:12)
[2024-05-12] MEDS: NOVOLOG FLEXPEN-HIGH RESISTANCE 10 UNITS SC (03:25)
--- NOTE | 2024-05-12 04:52 | PTCARENOTE ---
systems reviewed, accu check change to Q4 D5 1/2 NS stopped per order, insulin continued to rise despite insulin given, chg bath, calcium repleted, gtts titrated per worklist, otherwise refer to documentation.
[2024-05-12 05:57] LABS: Glucose - Point of Care 285 mg/dl (70-99)
[2024-05-12 06:00] VITALS: BMI 24.9
[2024-05-12] MEDS: PROTONIX 100 IV ×2 (06:26→15:48)
--- NOTE | 2024-05-12 07:45 | PN.DE.MGMTRT ---
Insulin Management
- -
05/12/2024: Diabetes Management F/U:
Patient brought to ED with change of mental status, found to be in DKA. PMH CAD, HTN, diabetes, CKD 3b, UTI 1 month ago. Prior to admission was taking Tresiba 10 units @ hs. A1C on 03/22/24 was 8.5%--> A1C 9.6% this admission. Cr 6.3, eGFR
8.7-->5.3, eGFR 10.16
Glucose Patient was managed on insulin infusion and transitioned off on 04/28 to SQ Insulin.
05/10 Noted for Perforated duodenal ulcer with peritonitis.
Patient remains sedated, intubated, on pressors. He opens eyes briefly to name call, unable to discuss diabetes mgt.
He is s/p NPO/IVF/NGT,
All standing insulin orders placed on hold 05/10 while NPO.
Glucose trending up, 296@ HS, 306@ 3AM and 285 fasting this AM. D/W Dr. Alejandro and Nurse, plan to initiate Glycemic protocol
Discussed with ICU team to consider switching all drips from dextrose to saline base if possible for optimal glucose control.
Will follow closely and provide diabetes mgt support as necessary.
Diabetes History
- -
Type of Diabetes: 2 requiring insulin
Pre-Admission Diabetes Regimen
05/12/24
00:22
Creatinine 4.4 H*
Lab Results
Hemoglobin A1c 9.6 % (4.0-5.6) H 04/27/24 06:06
Insulin Pump Settings
IP Diabetes Regimen
05/11/24 05/11/24 05/11/24
12: 17:02 23:55
Glucose
POC Glucose 154 H 217 H 296 H
05/12/24 05/12/24 05/12/24
00: 03:06 05:45
Glucose 270 H
POC Glucose 306 H 285 H
Meal type: Breakfast
Amount consumed: 0
Patient Education
--- NOTE | 2024-05-12 07:52 | W.PN.ANS.POP ---
Addendum entered and electronically signed by Zulema Brown CRNA 05/12/24 07:53:
Pt remains stable on vent with fentanyl gtt for sedation and Levophed drip titrated for BP.
Original Note:
Anesthesia Post Operative
- Anesthesia Post Op Note
Vital Signs Stable-See Nursing Note: Yes
Airway Patent: Yes
Adequate Pain Control: Yes
Change in Mental Status: No
Current Postoperative Nausea & Vomiting: No
Anesthesia Complications: No
General Anesthetic Recall: No
Unplanned Admission: No
Post Op Hydration Adequate: Yes
[2024-05-12] MEDS: NOVOLOG FLEXPEN-HIGH RESISTANCE 7 UNITS SC (08:06)
[2024-05-12 08:16] LABS: Glucose - Point of Care 280 mg/dl (70-99)
--- NOTE | 2024-05-12 08:31 | W.PN.INTV ---
Today's Communication / Plan
Recommendations
Mechanical ventilation; daily SAT/SBT if clinically appropriate
Pain control
Postoperative management as per general surgery
Continue vasopressors; start vasopressin
PPI drip
Abx
NGT to LIWS
Avoid hypoglycemia with goal BG 140-180mg/dL; may need to resume lantus; continue ISS q4hr for now
Continue to trend H&H and platelet levels
Hold off on chemical DVT prophylaxis given duodenal ulcer with perforation; if H&H remained stable for the next 48 to 72 hours with no clinical signs of GIB then will restart heparin SQ
Continue with ICU level of care for this critically ill patient
Assessment
-
83-year-old male with history of hypertension, CAD, diabetes, hyperlipidemia, chronic kidney disease who was recently in the hospital with a UTI treated with antibiotics and Rosenthal catheter was placed for persistent retention presented with
confusion, new onset atrial fibrillation, and hyperglycemia-back grinder initally consulted for DKA/new onset atrial fibrillation/critical care management 04/27/2024. Patient has been managed in the IMU since 05/07/2024, and then due to worsening
abdominal pain with tachypnea and reported altered mental status he was transferred to the ICU overnight on 05/09Spinner Hand service is asked to reevaluate the patient for additional management/recommendations.
Impression:
Abdominal pain due to perforated duodenal bulb ulcer with secondary peritonitis s/p ex-lap with abdominal washout and repair of duodenal ulcer with omental pedicle flap (POD#1)
Shock likely due to sepsis in the setting of perforated duodenal bulb ulcer and shock also has likely component from sedation
Toxic metabolic encephalopathy
Upper GI bleed due to duodenal ulcer currently on PPI gtt
Metabolic acidosis with normal AG - acidosis is improving
Hypoglycemia - now resolved and he is now hyperglycemic
Bacteremia-Klebsiella pneumonia due to UTI
ARISTEO on CKD now on HD
Moderate left hydronephrosis with persistent bilateral hydroureter (seen on CTA abdomen/pelvis from 05/07/2024)
Hyponatremia
Anemia
Thrombocytopenia
Leukocytosis with bandemia
Elevated ALP
Hx of new onset atrial fibrillation
Hypoalbuminemia
Conditions present prior to admission:
Hypertension.
Hyperlipidemia.
CAD/stent.
[id number].
Neurogenic/atonic bladder with chronic Rosenthal catheter.
Chronic kidney disease stage IIIb.
Plan
He had continued to have worsening abdominal pain and went to OR on 05/11 and found to have a perforated 1cm duodenal bulb ulcer with evidence of diffuse peritonitis with 4 L of bilious ascites that was suctioned s/p ex lap with abdominal washout and
primary repair of duodenal ulcer with omental pedicle flap
- Defer postoperative management to general surgery
- Follow up OR cultures - NGTD
- Continue Zosyn
- Continue PPI gtt
- Keep NGT to low intermittent wall suction for decompression
- Hold tube feeds for now until told otherwise by general surgery
- Pain control
Continue with mechanical ventilation
- Titrate FiO2 + PEEP to keep SpO2 >90 this 90%
- Maintain plateau pressure <30
- Nebulizers if needed - currently not bronchospastic
- Aspiration precautions
Continue with vasopressors with goal SBP >90mmHg as he has a very low diastolic pressure making goal MAP>65 unrealistic
- Start vasopressin
- Give IV albumin 25g 25% to help raise oncotic pressure and also hopefully help vasopressor requirements
Patient hypoglycemic on AM of 05/10 --> follow blood sugar with q4hr POCT BG
- D5-1/2 NS now off as his BG have started to rise again >180 --> continue with high resistance ISS q4hr and if BG remains elevated for the remainder of today then restart Lantus tonight with
Continue with HD as per nephrology
Trend potassium + serum sodium
Dialysis catheter inserted 04/28/2024 and HD initiated on 04/28/2204
Cultures reviewed
Patient previously had positive blood cultures on 04/26/2024 with Klebsiella pneumonia as well as urine culture on 04/26/2024 with Klebsiella pneumonia
- Repeat blood culture on 04/29/2024 and repeat urine culture on 05/04/2024 show NGTD
- ID was on board but then they signed off on 05/09/2024
- He was previously on Ancef from 05/02 - 05/08, s/p zosyn from 04/26 - 05/02 + rocephin x1 dose on 04/26; also got cefuroxime on 05/09 --> now back on Zosyn since 05/10
- Trend WBC and monitor for fevers
Cardiology following-correspondence reviewed
Monitor for recurrence of A-fib - currently in NSR with 1st degree AVB
Eventual transition to oral anticoagulant-Eliquis
Follow hemoglobin
Transfuse as needed to keep Hb>7, plt>50k given recent UGIB
DVT prophylaxis-SCDs; last blood TRX on 05/07/2024 (he has had 8 units PRBC this admission); hold off on chemical prophylaxis for now given he is s/p ex lap with perforated duodenal ulcer seen intraoperatively - If Hb remains stable with no clinical
signs of Gi bleed for 48-72 hrs, then will start chemical ppx with heparin SQ
Nutrition on hold given he is s/p ex-lap from 05/11
PT/OT once extubated
IC access: Midline in RUE --> PICC
Critical care statement: A total of 43 minutes of critical care time was provided for this patient today. This includes management of unstable vital signs, evaluation of the patient at bedside, reviewing the patient's pertinent medical records
including radiographs, microbiology, laboratory evaluations, and discussion with primary team, consultants, pharmacy, nutrition, physical therapy, case management, charge nurse, critical care nursing, and respiratory therapy.
Data:
CT abdomen/pelvis with IV contrast 04/09/2024:
Small bowel loops in the left hemiabdomen with wall thickening and a few small scattered foci of gas that appear to be centered within the small bowel wall raising concern for pneumatosis and ischemic enteritis.
Several loops of small bowel in the left abdomen with moderate circumferential wall thickening. Differential diagnoses include inflammation, infection and less likely ischemia. New.
Moderate abdominopelvic ascites. Progressed.
Moderate bilateral pleural effusions.. Progressed bilaterally.
Moderate left lower lobe consolidation. Stable. Mild right lower lobe consolidation. Stable. Probably atelectasis.
Moderate subcapsular right perinephric fluid collection. Differential diagnosis includes hematoma, seroma and less likely infection. Stable. Associated stable compressive effects on the renal parenchyma.
Small hypodense right renal lesion decreased in size. This may represent a benign cyst. Infection an malignancy cannot be excluded. Severity evaluated by MRI examination.
Moderate air and Rosenthal catheter in the bladder. Stable.
Findings suggesting volume overload or third spacing. Stable.
Chest x-ray 04/26/2024-no focal consolidations, pleural effusions or pneumothorax
CT abdomen/pelvis with IV contrast 05/09/2024: compared to prior CTA A/P on 05/07/2024
Small bowel loops in the left hemiabdomen with wall thickening and a few small scattered foci of gas that appear to be centered within the small bowel wall raising concern for pneumatosis and ischemic enteritis.
Moderate abdominopelvic ascites. Progressed.
Moderate bilateral pleural effusions.. Progressed bilaterally.
Moderate left lower lobe consolidation. Stable. Mild right lower lobe consolidation. Stable. Probably atelectasis.
Moderate subcapsular right perinephric fluid collection. Differential diagnosis includes hematoma, seroma and less likely infection. Stable. Associated stable compressive effects on the renal parenchyma.
Small hypodense right renal lesion decreased in size. This may represent a benign cyst. Infection an malignancy cannot be excluded. Severity evaluated by MRI examination.
Moderate air and Rosenthal catheter in the bladder. Stable.
Findings suggesting volume overload or third spacing. Stable.
Subjective Dataa
Subjective Data
Date of Service:
Date of Service: May 12, 2024
Chief Complaint: Spinner Hand Follow Up
Subjective:
Patient seen and evaluated this morning. Getting HD right now. Heart rate 86, BP 100/39, saturating 96%. Small white ETT secretions. Intubated on AC/CMV on 14/500/50%/5 with PIP [id number], VTe: 512mL, and breathing at 14 breaths/minute. NGT to
suction. He is afebrile overnight. Remains on levophed at 18mcg/min. Sedated on fentanyl gtt at 25mcg/hr.
Review of Systems
General: Unobtainable - Sedation
Objective Data
Data Reviewed
Vital Signs / I&O / Oxygen:
Vital Signs
Temp Pulse Resp BP Pulse Ox
97.6 F 83 15 81/71 94
05/12/24 07:55 05/12/24 06:00 05/12/24 06:00 05/11/24 21:11 05/12/24 08:25
Intake and Output
05/11/24 05/12/24 05/13/24
06:59 06:59 06:59
Intake Total 1000 / 1040 1720.0 / 1720.0
Output Total 70 / 70 155 / 155
Balance 930 / 970 1565.0 / 1565.0
SaO2 [A/C] 95
SaO2 94
Nasal Cannula flow liters per 5
minute
Physical Exam
General: Respiratory Distress (n), Pain (abdomen (mild and only with palpation)), Chills (n) and Sweats (n)
HEENT: Normocephalic, Anicteric, Moist Mucous Membranes and Other (ETT in place)
Cardiovascular: Regular Rhythm, Murmur (DANAY heard best at RUSB) and Peripheral Edema (+1 lower extremity pitting edema bilaterally)
Respiratory: Wheeze (n), Crackles (Bibasilar), Rhonchi (n), Non-Labored Respirations, Accessory Resp Muscle Use (n), Stridor (n), ET Tube (Mechanical breath sounds heard bilaterally) and Other (Diminished breath sounds)
GI: Soft, Distended (Tense) and Tender (Diffusely with palpation)
Neurology: Tremors (negative) and Other (Sedated but easily arousable to voice and tactile stimulation; following all commands)
Skin: Warm, Dry, Cyanosis (n) and Jaundice (n)
Labs/Micro/Reports
Lab Data
05/12/24 00:22
Laboratory Results
05/11/24 05/12/24
14:10 00:22
pH 7.41 7.39
pCO2 34 L 31 L
pO2 97 78 L
HCO3 21.6 18.8 L
O2 Delivery Level
Microbiology
05/11/24 10:20 Abdomen Gram Stain - Preliminary
[2024-05-12 08:55] LABS: Blood Urea Nitrogen 46 mg/dl (9-20); Calcium 7.4 mg/dl (8.4-10.2); Carbon Dioxide 22 mmol/L (22-30); Chloride 97 mmol/L (98-107); Estimated Creatinine Clearance 11 ml/min; Glucose 256 mg/dl (70-99); Magnesium 2.3 mg/dl (1.6-2.3); Potassium 5.4 mmol/L (3.5-5.1); Sodium 129 mmol/L (135-145); eGFR 11.73
--- NOTE | 2024-05-12 08:56 | PTCARENOTE ---
report received, assessments per work list. patient easily arouses, denies pain. wrist restraints maintained for patient safety. follows commands. monitor aflutter. left radial arterial line zeroed. Levophed, fentanyl per work list. gtt's infusing
thru right midline. +4 edema arms. weeping anasarca. generalized +3 anasarca. right IJ HD cath in place. HD RN at bedside. when beginning HD, blood pressure dropped, requiring titration of levophed. [place] sump to LIS, draining green fluid. no urine
output from [address] way valverde.
[2024-05-12] MEDS: LEVOPHED 254 MG IV ×2 (09:21→15:50)
--- NOTE | 2024-05-12 09:24 | W.PN.HOSP.TC ---
Today's Communication/Plan
-
continue zosyn
check mrs;one dose vanco
wean pressor as tolerated
Assessment / Plan
Assessment / Plan
83-year-old male with known past medical history of essential hypertension currently on multiple drugs, insulin-dependent diabetes, neurogenic/atonic bladder with chronic Valverde catheter, coronary artery disease/AL 3 years ago s/p cardiac stenting
and currently on prasugrel and CKD 3B presented with his due to confusion and lethargy for few days. Hb dropped after started on eliquis for new onset a fib.
#UGIB
#PUD
# Perforated duodenal ulcer with peritonitis
unclear if it is related to eliquis use since he was on prasugrel before
-Status post 8 units of PRBC total this hospital stay
-Developed dark maroon stools after being started on Eliquis last week
-EGD showed nonbleeding peptic ulcer and a large duodenal ulcer with clot adherent
-per GI hold anticoagulants; cardio recommend to start single agent eliquis when ok by GI
-POD #1 Perforated duodenal bulb ulcer
- NPO
-1 time vanco
-PPI drip
-on levophed 18mcg for hypotension-wean if possible
#Sepsis due to CAUTI - POA
septic shock due to above
#Neurogenic bladder with chronic valverde catheter
-urine culture showed Klebsiella pneumonia
-appreciate urology recs-continue valverde
-Will need outpatient follow-up with urology
-Continue finasteride, tamsulosin; continue with Valverde at discharge
- IR recommend to hold off on PCN for now
-cont zosyn; ID following
#New onset ESRD
#H/O CKD 3B
-Has been initiated on HD every M/W/F with nephrology here; HD today
-Had tunneled HD cath placed for long-term dialysis access; Right UE swelling, US no dvt
-Recent CT showed ongoing obstructive uropathy, now s/p Valverde catheter
-Trend daily BMP, continue with dialysis as scheduled
-Will need follow-up at discharge with nephrology and urology
-HD today
#New onset Atrial fibrillation
-[id number] score 5, nonvalvular
-Was already on rate controlling agent with home carvedilol
-Was started on Eliquis here though currently held for presumed UGIB as above
-cardio recommend to start single agent eliquis when ok by GI
#Type 2 DM
-Home medications include Lantus, NovoLog, Tresiba; previously on Farxiga
-Had severe hyperglycemia on arrival, suspected to be HHS, now improved
-Blood glucose currently stable onn low resistance ssc insulin
#CAD s/p PCI
-Had PCI in 2021; Home meds include high intensity statin, beta-elsie, prasugrel
-Due to occurrence of new onset AF, prasugrel was transition to Eliquis
-Eliquis currently held due to GI bleeding as above
#Essential HTN
-Home medications include carvedilol, amlodipine
-No known history of hypertensive systemic diseases
-soft Blood pressure- hold meds
#HLD
-continue statin
#Elevated LFTs
-Likely secondary to infection/sepsis, reduced perfusion
-Resolved
#Toxic metabolic encephalopathy
-Likely multifactorial with sepsis, possible HHS/severe hyperglycemia
-Improved/resolving with correction of issues shown above
-Pt/Ot
Code status: DNR
Diet: CLD
DVT prophylaxis: SCDs
Anticipated Discharge: > 48 hours
Subjective/Interval History
-
Date of Service: May 12, 2024
Patient intubated
Objective Data
-
Labs:
Laboratory Results
05/12/24 05/12/24
00:22 08:15
WBC 12.8 H
Hgb 9.7 L
Hct 29.8 L
Plt Count 126 L
HCO3 18.8 L
Sodium 131 L 129 L
Potassium 5.8 H 5.4 H
Chloride 98 97 L
Carbon Dioxide 20 L 22
BUN 42 H 46 H
Creatinine 4.4 H* 4.7 H*
Glucose 270 H 256 H
Calcium 7.0 L 7.4 L
Vital Signs:
Vital Signs
Temp Pulse Resp BP Pulse Ox
97.6 F 80 14 81/71 94
05/12/24 07:55 05/12/24 08:45 05/12/24 08:45 05/11/24 21:11 05/12/24 08:45
I&O
05/11/24 05/12/24 05/13/24
06:59 06:59 06:59
Intake Total 1000 / 1040 1720.0 / 1792.5 252.5 / 252.5
Output Total 70 / 70 155 / 155
Balance 930 / 970 1565.0 / 1637.5 252.5 / 252.5
Review of Systems
-
Unable to obtain full review of systems at this time due to: Patient Intubation
Physical Exam
-
General: Intubated and Appears Chronically Ill
Respiratory: Non Labored Respirations; Negative Accessory Resp Muscle Use
Cardiac: Regular Rhythm, S1/S2 and Murmur; Negative Rub or Gallop
GI: Soft and Other (dressng intac. Daren drain with clear discahrge)
Skin: Warm and Dry; Negative Rash
Data Reviewed
-
Ultrasound: Report Reviewed by me
Labs: Labs Reviewed by me and Discussed with Physician
Old Records: Reviewed
[2024-05-12] MEDS: FLEXBUMIN 25% FOR HEMODIALYSIS 12.5 GRAMS IV ×2 (09:27→10:13)
[2024-05-12] MEDS: MANNITOL 25% 12.5 GRAMS IV ×2 (09:28→10:14)
[2024-05-12] MEDS: RETACRIT 6000 UNITS IV (09:29)
--- NOTE | 2024-05-12 09:33 | W.PN.UPDATE ---
Update Note
Progress Note Update
I saw and evaluated the patient. I reviewed the resident�s note and agree with findings and plan as documented in the resident�s note except for changes in my documentation.
On the ventilator
Awake and alert and following commands
Cardiovascular system S1-S2 appreciated
Chest decreased breath sounds bilateral bases
Abdomen midline surgical wound MEREDITH drain, no bowels sounds
Bilateral pedal edema
Bilateral upper extremity edema
# Perforated duodenal ulcer status post diagnostic laparoscopy, exploratory laparotomy, abdominal washout, primary repair of duodenal bulb ulcer with omental pedicle flap by Dr. Diaz on 05/11/2024.
Postop care. Continue n.p.o.
# Postop VDRF-management per product delivery specialist
# Septic shock secondary to perforated duodenal ulcer-continue Zosyn. OR cultures with gram-positive cocci. 1 dose of vancomycin given. Await further identification. Levophed and vasopressin. Wean as tolerated
# Sepsis secondary to catheter related UTI
Neurogenic bladder with chronic Rosenthal catheter change in the ER
05/04/24 CT a/p severe bilateral hydroureter. No stones. Severe bladder distention to above level of umbilicus.
05/07 CT a/p; right renal subcapsular hematoma vs seroma vs urinoma
Completed CBI secondary to purulence
IR reviewed the patient's imaging. Left hydronephrosis improved since 05/07/2024. Likely related to Rosenthal decompression. Left PCN not advised
Neurogenic bladder with chronic Rosenthal catheter exchanged in the ER
# End-stage renal disease at this point-started on dialysis Wednesday. Has a tunneled HD catheter placed
# New onset atrial fibrillation-plan on anticoagulation when stable from surgical stance
# HHNK-was on Tresiba as outpatient held was placed on insulin drip. NovoLog insulin on hold. Morning blood sugars elevated so changed to Lantus 12 in am Hemoglobin A1c was 9.6 on admission. Unclear if is reliable with anemia.
Blood sugars were running high even though critical care glycemic protocol was considered when the patient's drips were switched to fluids with normal saline sugars are better. Continue sliding scale coverage for now.
# Thrombocytopenia-watch
# TME-multifactorial- watch
# Hyponatremia-hypervolemic ,watch. Correct with dialysis
# Anemia acute blood loss anemia and anemia of chronic disease
# Elevated LFTs- Improving. Possible shock liver secondary to hypotension
# Vitamin D deficiency-replace when able to take PO
# Secondary hyperparathyroidism
# Essential hypertension-Hold Coreg and amlodipine
# Hyperlipidemia-Hold statin
# Coronary artery disease with stent 2021. Hold statin and beta-elsie as NPO. Prasugrel stopped when patient was started on Eliquis ( AC on hold now).
# Indeterminate 1.4 cm left adrenal nodule
# Hypoalbuminemia-albumin 1.8
# DVT prophylaxis- SCDs
# CODE STATUS-DNR
Total Critical Care Time 34 minutes. I was immediately available to the patient and staff. I personally examined, reviewed labs, diagnostic images/reports, interpretations, treatment plans, discussed patient care with other providers entered
orders as appropriate and documented the medical record.
Spoke to patient's and updated
--- NOTE | 2024-05-12 10:12 | W.PN.ID1 ---
Date of Service
Date of Service: May 12, 2024
Today's Communication
Continue Zosyn
Assessment / Plan
# Perforated duodenal ulcer with peritonitis
- 05/12/24 s/p abd washout, repair of duodenal ulcer
Appreciate surgery.
OR gram stain: GPC in pairs; cx pending
- Continue Zosyn (d3) pending OR findings and cultures.
# Septic shock due to above
-Continue ICU support
- Follow vitals/clinically
# s/p recent UGI bleed
# s/p Blood loss anemia
- s/p EGD: large duodenal ulcer with clots
# ARISTEO on CKD now on HD
# s/p Klebsiella complicated UTI with bacteremia
# Severe b/l hydroureter/hydronephrosis
# right renal subcapsular hematoma vs seroma vs urinoma
# Atonic bladder with chronic valverde
- pt declined lpercutaneous nephrostomy.
Per IR left hydro somewhat improved with CBI, valverde decompression and perc neph unlikely to help with renal function.
- Completed 14d of abx through 05/10/24.
Chief Complaint
-: Other (Bowel perforation)
Subjective / Review of Systems
Remains intubated. On HD.
Vital Signs / Physical Exam
Vital Signs
Vital Signs
Temp Pulse Resp BP Pulse Ox
97.6 F 80 14 81/71 94
05/12/24 07:55 05/12/24 08:45 05/12/24 08:45 05/11/24 21:11 05/12/24 08:45
Physical Exam
Constitutional: Acutely Ill
Eyes: Sclera Anicteric
Cardiovascular: Regular Rate and S1/S2
Pulmonary: Clear
Gastrointestinal: Soft, Non Distended, Decreased Bowel Sounds and Other (MEREDITH drain serous fluid. )
Genito-Urinary: Valverde (minimal urine)
Extremities: Negative Edema
Objective Data
Lab Data
Lab Results
05/12/24 00:22
05/12/24 08:15
PT 16.6 Sec (11.4-14.6) H 05/10/24 07:46
INR 1.29 05/10/24 07:46
APTT 35.0 Sec (23.4-35.0) 05/10/24 07:46
Estimated Creat Clear 11 ml/min 05/12/24 08:15
Lactic Acid 0.7 mmol/L (0.7-2.0) 04/28/24 12:05
Total Bilirubin 0.7 mg/dl (0.2-1.3) 05/11/24 03:36
AST 17 U/L (17-59) 05/11/24 03:36
ALT < 10 U/L (0-50) 05/11/24 03:36
Alkaline Phosphatase 137 U/L (38-126) H 05/11/24 03:36
Most recent labs reviewed.
Micro Results:
05/11/24 10:20 Wound Culture - Pending
Abdomen Gram Stain - Preliminary
05/11/24 10:20 Anaerobic Culture - Pending
Fluid
05/04/24 13:55 Urine Culture - Final
Urine NO GROWTH
04/29/24 09:09 Blood Culture - Final
Blood/Venous No Growth - Final Report
04/27/24 14:16 Blood Culture - Final
Blood/Venous No Growth - Final Report
04/26/24 15:46 Urine Culture - Final
Urine Klebsiella pneumoniae
04/26/24 19:21 Blood Culture - Final
Blood/Venous Klebsiella pneumoniae
Gram Stain - Final
04/26/24 15:02 Blood Culture - Final
Blood/Venous Klebsiella pneumoniae
Gram Stain - Final
04/27/24 Renal US: Bilateral hydronephrosis, moderate left and mild right.
05/04/24 CT a/p wo IV contrast: Severe bilateral hydroureter. No obstructing radiopaque stones are noted. Possible subcapsular right renal fluid collection. Limited evaluation without IV contrast. Renal masses and masses of the collecting system
and bladder cannot be excluded without IV contrast. Mild prostate hypertrophy.
05/07/24 CTa/p: 1. Negative for active gastrointestinal hemorrhage. As above, there is gastric and duodenal mucosal hyperenhancement, but no active bleeding is identified. Patient's known duodenal ulcer is not well seen at CT.
2. Persistent moderate left hydronephrosis and persistent bilateral hydroureter. As above, there is abnormal appearance of the right kidney with subcapsular collection which nearly completely surrounds the kidney. There are associated compressive
changes of the right kidney with diminished enhancement and misshapen cortex. There is mild prominence of the right renal collecting system, no marked hydronephrosis. Collection shows greater than simple fluid attenuation and could represent old
hematoma/seroma. Urinoma is also a diagnostic consideration. Presence or absence of superimposed infection cannot be determined by this examination. 3. Valverde catheter in position within decompressed urinary bladder. Diffuse marked urinary bladder
wall thickening related to either chronic outlet obstruction or neurogenic bladder.
05/09/24 CT a/p: Several loops of small bowel in the left abdomen with moderate circumferential wall thickening. Moderate abdominopelvic ascites. Progressed. Moderate bilateral pleural effusions.. Progressed bilaterally. Moderate left lower lobe
consolidation. Stable. Mild right lower lobe consolidation. Stable. Probably atelectasis. Moderate subcapsular right perinephric fluid collection. Differential diagnosis includes hematoma, seroma and less likely infection. Stable. Associated stable
compressive effects on the renal parenchyma. Addendum: Small bowel loops in the left hemiabdomen with wall thickening and a few small scattered foci of gas that appear to be centered within the small bowel wall raising concern for pneumatosis and
ischemic enteritis.
05/11/24 CXR: The endotracheal tube is in satisfactory position. There are moderate bilateral pleural effusions with associated compressive atelectasis at the retrocardiac left lung base
[2024-05-12] MEDS: NSS (PRESERVATIVE FREE) IV ×2 (10:34→22:12)
--- NOTE | 2024-05-12 11:12 | W.PN.GS2 ---
Addendum entered and electronically signed by Neil White MD 05/12/24 12:37:
I saw and examined the patient.
The Manufacturing Sales Representative's note was reviewed and I agree with the note.
Comment: Remains sedated, intubated, on pressors. He opens eyes to auditory stimulus and shakes head no when asked if he has pain. Cont NPO/IVF/NGT, wean pressors and vent as reji
Original Note:
Today's Communication / Plan
-
NGT/NPO/PPI
Assessment / Plan
-
Assessment: 83-year-old male with suspected ischemic bowel/perforation.
POD #1 diagnostic laparoscopy with perforated duodenal ulcer noted with diffuse peritonitis; 4 L of bilious ascites; procedure converted to exploratory laparotomy for abdominal washout, primary repair duodenal bulb ulcer with omental pedicle flap. D
Afebrile
Remains on mechanical ventilation post operatively
On Levophed at 18mcg for hypotension
ESRD by history with HD today, oliguric
Plan:
Continue NGT to LIWS, leave in place if extubated
Continue IV abx
Continue PPI drip
Continue with MEREDITH
Analgesics as needed, on fentanyl gtt currently
Medical management as per primary team/territory sales consultant
Subjective Data
-
Date of Service: May 12, 2024
Patient seen and examined at bedside with Dr. White. Mechanically ventilated but does open eyes to light stimulation. Winces in pain with abdominal exam.
Objective Data
-
Intake and Output
05/11/24 05/12/24 05/13/24
06:59 06:59 06:59
Intake Total 1000 / 1040 1720.0 / 1792.5 412.5 / 412.5
Output Total 70 / 70 155 / 155 50 / 50
Balance 930 / 970 1565.0 / 1637.5 362.5 / 362.5
Intake:
Oral fluids 280 / 280
IV fluids (Total) 620 / 660 1560.0 / 1632.5 382.5 / 382.5
D5/0.45%NaCl 1,000 ml @ 40 mls/ 520 / 560 720 / 720
hr IV .Q24H [facility] Rx#:[id number]
Levophed 645.0 / 705.0 320.0 / 320.0
Protonix 100 / 100 170 / 180 50 / 50
fent 25.0 / 27.5 12.5 / 12.5
IV piggybacks 100 / 100 160 / 160
Amount instilled into GI Tube (
Total)
[place] Sump
Output:
Drain Output (Total) 115 / 115 50 / 50
Right Abdomen Alfie-Biswas 115 / 115 50 / 50
Urine, Rosenthal 70 / 70 35 / 35
Urine, Voided 5 / 5 0 / 0
Vital Signs
Temp Pulse Resp BP Pulse Ox
97.6 F 81 14 81/71 96
05/12/24 07:55 05/12/24 10:30 05/12/24 10:30 05/11/24 21:11 05/12/24 10:30
Lab Results
05/12/24 00:22
05/12/24 08:15
Calcium 7.4 mg/dl (8.4-10.2) L 05/12/24 08:15
Phosphorus 5.5 mg/dl (2.5-4.5) H 05/10/24 07:46
Magnesium 2.3 mg/dl (1.6-2.3) 05/12/24 08:15
Total Bilirubin 0.7 mg/dl (0.2-1.3) 05/11/24 03:36
AST 17 U/L (17-59) 05/11/24 03:36
ALT < 10 U/L (0-50) 05/11/24 03:36
Alkaline Phosphatase 137 U/L (38-126) H 05/11/24 03:36
Total Protein 4.2 g/dl (6.3-8.2) L 05/11/24 03:36
Albumin 1.8 g/dl (3.5-5.0) L 05/11/24 03:36
Physical Exam
-
Acutely ill-appearing
Vented with ETT in place
ABD: Mildly distended, generalized tenderness, surgical dressing intact. NGT with minimal bilious outputs. MEREDITH with SSF
--- NOTE | 2024-05-12 11:23 | W.PN.NEPH.PH ---
Today's Communication / Plan
-
HD today
wean pressor as possible
Assessment/Plan
-
Assessment
Hypertension
ARISTEO
DKA
Metabolic acidosis
Lactic acidosis
Hyperkalemia
Hyponatremia
azotemia
Neurogenic bladder with bilat hydro
Coronary artery disease
E faecalis urosepsis
Plan:
ARISTEO is likely due to combination of neurogenic bladder in setting of severe DKA
hb stable at 9.7 range
IR did not favor PCN intervention for obstructive uropathy
s/p exp lap and primary repair duodenal bulb ulcer with omental pedicle flap on 05/11
remains intubated
abx per ID on Zosym
HD today
maintain pressor to keep MAP >65
mild hypocalcemia-s/p IV yang rider-vit D low, PTH 103 appropriately high-add vit D2 when starts PO
NPO - ok for gentle IVF if needed
-
-
Date of Service: May 12, 2024
CC / HPI / ROS
-
Chief Complaint:
ARISTEO
History of Present Illness:
ARISTEO/Cr now on dialysis support
on single pressotr, remains intubated
Dx Lap; Exploratory laparotomy abdominal washout, primary repair duodenal bulb ulcer with omental pedicle flap 05/[address] abd shows bilateral hydro and bladder distension 05/05
hb stable at 9.7 range
k high 5.4, sodium low 129
no significant UOP from valverde
Review of Systems:
intubated and sleeping during visit
Labs
-
Labs:
WBC 12.8 10^3/uL (4.8-10.8) H 05/12/24 00:22
RBC 3.30 10^6/uL (4.70-6.10) L 05/12/24 00:22
Hgb 9.7 g/dL (13.0-18.0) L 05/12/24 00:22
Hct 29.8 % (39.0-52.0) L 05/12/24 00:22
Plt Count 126 10^3/uL (130-400) L 05/12/24 00:22
Sodium 129 mmol/L (135-145) L 05/12/24 08:15
Potassium 5.4 mmol/L (3.5-5.1) H 05/12/24 08:15
Chloride 97 mmol/L (98-107) L 05/12/24 08:15
Carbon Dioxide 22 mmol/L (22-30) 05/12/24 08:15
BUN 46 mg/dl (9-20) H 05/12/24 08:15
Creatinine 4.7 mg/dL (0.7-1.3) H* 05/12/24 08:15
eGFR 11.73 05/12/24 08:15
Glucose 256 mg/dl (70-99) H 05/12/24 08:15
Calcium 7.4 mg/dl (8.4-10.2) L 05/12/24 08:15
Phosphorus 5.5 mg/dl (2.5-4.5) H 05/10/24 07:46
Albumin 1.8 g/dl (3.5-5.0) L 05/11/24 03:36
Physical Exam
-
Vital Signs:
Vital Signs
Temp Pulse Resp BP Pulse Ox
97.6 F 81 14 81/71 96
05/12/24 07:55 05/12/24 10:30 05/12/24 10:30 05/11/24 21:11 05/12/24 10:30
Cardiovascular:: Regular rate and rhythm
Respiratory:: Bilateral: CTA (anteriorly)
Lung Excursion:: Abnormal
Abdomen:: Nontender and Soft
Extremity Edema:: +2: Bilateral:
Valverde Catheter: Yes
[2024-05-12] MEDS: HEPARIN 2000 UNITS INTRACATH (11:28)
--- NOTE | 2024-05-12 11:31 | W.PN.NEPH.HD ---
Assessment
-
pt seen during HD
vital stable on pressor
UF as tolerated, has edema
EWELINA for anemia
Tunneled catheter functions well
no heparin
Progress Note - Hemodialysis
-
Date of Service: May 12, 2024
Duration: 30 minutes and 3 hours
Potassium Bath: 2
Calcium Bath: 2.5
Opti-Dialyzer: 160
Ultrafiltration: Other (1-2kg)
Blood Flow: 400
Dialysate Flow: 600
Heparin: no
EPO: 6000
[2024-05-12 11:40] VITALS: BP_SYST 144
[2024-05-12] MEDS: PITRESSIN 100 IV (11:43)
[2024-05-12 11:46] LABS: Glucose - Point of Care 102 mg/dl (70-99)
[2024-05-12] MEDS: NOVOLOG FLEXPEN-HIGH RESISTANCE 1 UNITS SC (11:50)
--- NOTE | 2024-05-12 12:06 | PHA.VAN.IN ---
Assessment
- Assessment
Renal Function: Patient has ESRD, on chronic Hemodialysis
Hemodialysis Schedule: MWF
Concomitant Antimicrobials: pip/tazo
AUC Dosing Plan
- Empiric Dosing
Initial / Loading Dose: 1000 mg x 1 dose post HD today
Plan
- Plan
Initial / Loading Dose: 1000 mg x 1 dose post HD today
Maintenance Regimen: dose by random level HD days
Monitoring: will order a random level BAKER AM to be sure pt remains therapeutic
Pharmacokinetics Vancomycin I
- -
Patient Age: 83
Patient Sex: Male
Vancomycin Day #: 1
Indication: Gi / Intra-Abdominal
Requesting Provider: Javon
Pertinent Antimicrobial Allergies:
clopidogrel
Height / Weight:
Height 5 ft 6 in
Actual Weight 69.9 kg
Pertinent Past Medical History: neurogenic bladder, chronic valverde; ESRD on HD
- Vital Signs / Lab Results
Temp Pulse Resp BP Pulse Ox
97.6 F 90 15 81/71 95
05/12/24 11:35 05/12/24 11:30 05/12/24 11:30 05/11/24 21:11 05/12/24 11:59
Lab Results - Hematology
05/10/24 05/11/24 05/12/24
07:46 03:36 00:22
WBC 4.1 L 5.6 12.8 H
Band Neutrophils 38 H 38 H
Lab Results - Chemistry
05/10/24 05/11/24 05/12/24
07:46 03:36 00:22
BUN 52 H 31 H 42 H
Creatinine 6.3 H* 4.1 H* 4.4 H*
Estimated Creat Clear 8 13 12
Albumin 1.8 L
05/12/24
08:15
BUN 46 H
Creatinine 4.7 H*
Estimated Creat Clear 11
Albumin
Microbiology Results
05/11/24 10:20 Wound Culture - Preliminary
Abdomen Gram Stain - Preliminary
05/11/24 10:20 Anaerobic Culture - Preliminary
Fluid Culture pending. Anaerobic cultures are examined after 3
days incubation. Additional information to follow.
[2024-05-12 12:19] VITALS: BP_SYST 140
--- NOTE | 2024-05-12 12:23 | PTCARENOTE ---
Addendum entered by Zuri Chilel RN 05/12/24 14:42:
levophed wean per work list. vasopressin off when levophed@4mcq per direct marketing manager. spouse at bedside. updated
Original Note:
HD completed, vasopressin initiated. Levophed per work list. RT placed patient on spontaneous breathing trial. periods apnea. placed back on AC, reassessed
[2024-05-12 12:55] VITALS: BP_SYST 128
[2024-05-12 13:14] VITALS: BP_SYST 140
[2024-05-12] MEDS: VANCOCIN 200 IV (13:47)
[2024-05-12 14:00] VITALS: BP_SYST 134
[2024-05-12 14:54] VITALS: BP_SYST 127
[2024-05-12 14:58] VITALS: BMI 24.9
--- NOTE | 2024-05-12 15:00 | CM ---
CM following re: discharger planning.
Reviewed pt's chart, met with pt.
PT and OT continue recommending SNF level of care and both pt and his spouse preferred [facility].
CM spoke to [facility] liaison and she confirmed that all admissions paperwork submitted and pt is accepted for admission to [facility] for a short term rehab and HD onsite when pt is medically stable.
Per chart review, outpatient HD referral initiated to [facility] [facility] for outpatient HD treatment at [facility] to secure HD chair after short term rehab.
D/C plan: [facility] for a short term rehab and HD treatment onsite.
CM will follow to assist pt with discharge to [facility] for a short term rehab and HD treatment onsite.
[2024-05-12] MEDS: NOVOLOG FLEXPEN-HIGH RESISTANCE 2 UNITS SC ×2 (15:58→20:00)
[2024-05-12 16:18] LABS: Glucose - Point of Care 165 mg/dl (70-99)
[2024-05-12] MEDS: FLEXBUMIN 100 IV ×2 (17:12→22:03)
--- NOTE | 2024-05-12 17:23 | PTCARENOTE ---
patient in bed ; Awake, following commends; Restraints to B/L UE soft; Aflutter 76 BP via left radial A/line 106/37 MAP 58;
Levophed 2mcg via Rt UE mid line. Vasopressin on hold; Protonix 8/10ml via left writs; Albumin 25% 1 out 2 bags
B/L UE +3 edema elevated on a pillows.
ETT # 8/25cm RT. Vent 14/40%/500/+5 Peak 20/actual VT 455/RR 14; Scan amount of white secretion via ETT 0 oral.
J/P RT draining yellow clear; 60cc from 3 to 7shift mid line incision covered by dressing Rosenthal 0 output
--- NOTE | 2024-05-12 17:27 | W.PN.GI.CBS2 ---
Today's Communication / Plan
-
continue post op care per surgery and ICU team
Assessment / Plan
-
1.Perforated DU with peritonitis s/p Exploratory laparotomy abdominal washout, primary repair duodenal bulb ulcer with omental pedicle flaps on 05/11/24. he is currently intubated and pressors are being weaned MEREDITH with serosanguineous drainage
hemoglobin stable. Peritonitis on Zosyn. Continue PPI drip.
2. s/p GI bleed : Secondary to large duodenal ulcer with clot, unable to be removed, status post epi and EndoClot
Postop care per surgery, GI will follow peripherally please call back as needed
Subjective
Subjective
Date of Service: May 12, 2024
Patient is currently intubated, sedated and on pressors
MEREDITH with serosanguineous fluid
Objective
Data Reviewed
Laboratory Data:
Laboratory Results
05/12/24 00:22
05/12/24 08:15
Laboratory Results
PT 16.6 Sec (11.4-14.6) H 05/10/24 07:46
INR 1.29 05/10/24 07:46
APTT 35.0 Sec (23.4-35.0) 05/10/24 07:46
Phosphorus 5.5 mg/dl (2.5-4.5) H 05/10/24 07:46
Magnesium 2.3 mg/dl (1.6-2.3) 05/12/24 08:15
Total Bilirubin 0.7 mg/dl (0.2-1.3) 05/11/24 03:36
AST 17 U/L (17-59) 05/11/24 03:36
ALT < 10 U/L (0-50) 05/11/24 03:36
Alkaline Phosphatase 137 U/L (38-126) H 05/11/24 03:36
Vital Signs and I&O:
Vital Signs
Temp Pulse Resp BP Pulse Ox
98.0 F 74 14 81/71 97
05/12/24 16:01 05/12/24 14:54 05/12/24 14:54 05/11/24 21:11 05/12/24 16:09
I&O
05/11/24 05/12/24 05/13/24
06:59 06:59 06:59
Intake Total 1000 / 1040 1720.0 / 1792.5 915.5 / 915.5
Output Total 70 / 70 155 / 155 130 / 130
Balance 930 / 970 1565.0 / 1637.5 785.5 / 785.5
Physical Exam
Physical Exam
Cardiology: Normal Sinus Rhythm
Pulmonary: Clear
GI: Soft, Distended (Mildly distended midline incision with dressing MEREDITH with serosanguineous fluid) and Tender (Mild generalized tenderness)
--- NOTE | 2024-05-12 19:00 | PTCARENOTE ---
Vital signs saved from 1445. Cannot verify results from 1006-2025
--- NOTE | 2024-05-12 19:30 | PTCARENOTE ---
Patient received intubated on ventilator, awake, on low dose Fentanyl. Tolerating ventilator. Shakes head yes/no to questions asked. Acknowledges abdominal discomfort. Fentanyl titrated for patient comfort. See assessment charted. Repositioned every
2 hours. Oral care every 4 hours. ETT on right, 26cm at lip, moved to center. Left radial A line with good waveform and good square wave. On Levophed, titrate down as tolerated. BBS clear except right base diminished. S1 S2 regularly irregular with
murmur. 3:1 Aflutter on CM. Midline Abdominal dressing CDI, right side MEREDITH drain to bulb suction with serous drainage. Right sided Permacath in place. Bilateral midline catheters. Protonix gtt. Rosenthal catheter with minimal UO.
[2024-05-12 20:09] LABS: Glucose - Point of Care 150 mg/dl (70-99)
[2024-05-12] MEDS: SUBLIMAZE 100 IV (23:05)
[2024-05-12 23:53] LABS: Glucose - Point of Care 128 mg/dl (70-99)
--- NOTE | 2024-05-13 | PTCARENOTE ---
Essentially no change in patient assessment. However, able to wean off Levophed, off at this time. Fentanyl titrated up for patient comfort. Patient anxious at times regarding intubation and pain. Emotional support and encouragement provided as
needed.
[2024-05-13] MEDS: PROTONIX 100 IV ×3 (00:58→22:04)
[2024-05-13 02:13] VITALS: BMI 25.8
[2024-05-13] MEDS: NOVOLOG FLEXPEN-HIGH RESISTANCE SC ×2 (02:40→20:09)
--- NOTE | 2024-05-13 04:00 | PTCARENOTE ---
No marked change in patient assessment. Appears much calmer and more relaxed, sleeping when undisturbed. Rouses easily, startled at times and agitated. Calms with Emotional support and encouragement. Afebrile, VSS. Continues with Aflutter on CM, HR
50-80 BPM.
[2024-05-13] MEDS: ZOSYN 50 IV ×3 (04:26→20:02)
[2024-05-13] MEDS: NOVOLOG FLEXPEN-HIGH RESISTANCE 1 UNITS SC ×5 (04:37→23:53)
[2024-05-13 04:45] LABS: Glucose - Point of Care 143 mg/dl (70-99)
[2024-05-13 05:07] LABS: B.E. 1.2 mmol/L; HCO3 24.4 mmol/L (21-28); O2 Saturation % 99.3 % (94-98); PCO2 32 mmHg (35-48); PO2 133 mmHg (83-108); pH 7.49 (7.35-7.45)
[2024-05-13 05:37] LABS: Hematocrit 24.5 % (39.0-52.0); Hemoglobin 7.9 g/dL (13.0-18.0); Mean Corp Hgb Conc. 32.2 g/dL (33.0-37.0); Mean Corpuscular Hgb 28.6 pg (27.0-31.0); Mean Corpuscular Volume 88.8 fL (80.0-94.0); Red Blood Cell Count 2.76 10^6/uL (4.70-6.10); White Blood Cell Count 12.8 10^3/uL (4.8-10.8)
[2024-05-13 05:53] LABS: ALT (SGPT) < 10 U/L (0-50); AST (SGOT) 22 U/L (17-59); Albumin 2.1 g/dl (3.5-5.0); Alkaline Phosphatase 395 U/L (38-126); Blood Urea Nitrogen 28 mg/dl (9-20); Calcium 7.3 mg/dl (8.4-10.2); Carbon Dioxide 25 mmol/L (22-30); Chloride 99 mmol/L (98-107); Estimated Creatinine Clearance 15 ml/min; Glucose 131 mg/dl (70-99); Magnesium 2.2 mg/dl (1.6-2.3); Phosphorus 3.8 mg/dl (2.5-4.5); Potassium 3.9 mmol/L (3.5-5.1); Sodium 134 mmol/L (135-145); Total Protein 4.3 g/dl (6.3-8.2)
--- NOTE | 2024-05-13 07:24 | PTCARENOTE ---
Report given to oncoming RNZuri. Questions answered.
--- NOTE | 2024-05-13 07:26 | W.PN.HOSP.TC ---
Addendum entered and electronically signed by Tammi Alejandro MD 05/13/24 14:37:
I saw and evaluated the patient. I reviewed the resident�s note and agree with findings and plan as documented in the resident�s note except for changes in my documentation.
On the ventilator
Awake and alert and following commands
Cardiovascular system S1-S2 appreciated
Chest decreased breath sounds bilateral bases
Abdomen midline surgical wound MEREDITH drain, no bowels sounds
Bilateral pedal edema
Bilateral upper extremity edema
# Perforated duodenal ulcer status post diagnostic laparoscopy, exploratory laparotomy, abdominal washout, primary repair of duodenal bulb ulcer with omental pedicle flap by Dr. Diaz on 05/11/2024.
Postop care. Continue n.p.o.
# Postop Vent-management per safety and security manager. Wean per Pulm
# Septic shock secondary to perforated duodenal ulcer-continue Zosyn. OR cultures with gram-positive cocci. 1 dose of vancomycin given. Await further identification. Off Levophed and vasopressin.
# Sepsis secondary to catheter related UTI
Neurogenic bladder with chronic Valverde catheter change in the ER
05/04/24 CT a/p severe bilateral hydroureter. No stones. Severe bladder distention to above level of umbilicus.
05/07 CT a/p; right renal subcapsular hematoma vs seroma vs urinoma
Completed CBI secondary to purulence
IR reviewed the patient's imaging. Left hydronephrosis improved since 05/07/2024. Likely related to Valverde decompression. Left PCN not advised
Neurogenic bladder with chronic Valverde catheter exchanged in the ER
# End-stage renal disease at this point-started on dialysis Wednesday. Has a tunneled HD catheter placed
# New onset atrial fibrillation-plan on anticoagulation when stable from surgical stance
# HHNK-was on Tresiba as outpatient held was placed on insulin drip. NovoLog insulin on hold. Morning blood sugars elevated so changed to Lantus 12 in am Hemoglobin A1c was 9.6 on admission. Unclear if is reliable with anemia.
Blood sugars were running high even though critical care glycemic protocol was considered when the patient's drips were switched to fluids with normal saline sugars are better. Continue sliding scale coverage for now.
# Thrombocytopenia-watch
# TME-multifactorial- watch
# Hyponatremia-hypervolemic ,watch. Correct with dialysis
# Anemia acute blood loss anemia and anemia of chronic disease
# Elevated LFTs- Improving. Possible shock liver secondary to hypotension
# Vitamin D deficiency-replace when able to take PO
# Secondary hyperparathyroidism
# Essential hypertension-Hold Coreg and amlodipine
# Hyperlipidemia-Hold statin
# Coronary artery disease with stent 2021. Hold statin and beta-elsie as NPO. Prasugrel stopped when patient was started on Eliquis ( AC on hold now).
# Indeterminate 1.4 cm left adrenal nodule
# Hypoalbuminemia
# DVT prophylaxis- SCDs
# CODE STATUS-DNR
Total Critical Care Time 31 minutes.
Part of this note was created using voice recognition system. Occasional wrong word or��sound alike� substitutions may have inadvertently occurred due to the inherent limitations of voice recognition software. If noted kindly bring it to my
attention for correction.
Original Note:
Today's Communication/Plan
-
remains critically ill and vent dependent in ICU at this time.
continue post-op care per surgery and ICU team
Assessment / Plan
Assessment / Plan
83-year-old male with known past medical history of essential hypertension currently on multiple drugs, insulin-dependent diabetes, neurogenic/atonic bladder with chronic Valverde catheter, coronary artery disease/VA 3 years ago s/p cardiac stenting
and currently on prasugrel and CKD 3B presented with his due to confusion and lethargy for few days. Hb dropped after started on eliquis for new onset a fib.
#UGIB
#PUD
# Perforated duodenal ulcer with peritonitis
-unclear if it is related to eliquis use since he was on prasugrel before
-Status post 8 units of PRBC total this hospital stay
-Developed dark maroon stools after being started on Eliquis last week
-EGD showed nonbleeding peptic ulcer and a large duodenal ulcer with clot adherent
-per GI hold anticoagulants; cardio recommend to start single agent eliquis when ok by GI
-POD #2 Perforated duodenal bulb ulcer
-s/p Exploratory laparotomy abdominal washout,
-currently intubated and pressors are being weaned
-MEREDITH with serosanguineous drainage hemoglobin stable.
-Peritonitis;Zosyn(day 3). Continue PPI drip.
- NPO; intubated; off pressors; sbp in 80s
-1 time vanco;mrsa screen pending
#Sepsis due to CAUTI - POA
septic shock due to above
#Neurogenic bladder with chronic valverde catheter
-urine culture showed Klebsiella pneumonia
-appreciate urology recs-continue valverde
-Will need outpatient follow-up with urology
- hold finasteride, tamsulosin; continue with Valverde at discharge
- IR recommend to hold off on PCN for now
-cont zosyn; ID following
#New onset ESRD
#H/O CKD 3B
-Has been initiated on HD every M// with nephrology here; HD today
-Had tunneled HD cath placed for long-term dialysis access; Right UE swelling, US no dvt
-Recent CT showed ongoing obstructive uropathy, now s/p Valverde catheter
-Trend daily BMP, continue with dialysis as scheduled
-Will need follow-up at discharge with nephrology and urology
#New onset Atrial fibrillation
-[id number]-GRWp score 5, nonvalvular
-Was already on rate controlling agent with home carvedilol
-Was started on Eliquis here though currently on hold for UGIB as above
-cardio recommend to start single agent eliquis when ok by GI
#Type 2 DM
-Home medications include Lantus, NovoLog, Tresiba; previously on Farxiga
-Had severe hyperglycemia on arrival, suspected to be HHS, now improved
-Blood glucose currently stable on ssc insulin
#CAD s/p PCI
-Had PCI in 2021; Home meds include high intensity statin, beta-elsie, prasugrel
-Due to occurrence of new onset AF, prasugrel was transition to Eliquis
-Eliquis currently on hold due to GI bleeding as above
#Essential HTN
-Home medications include carvedilol, amlodipine
-No known history of hypertensive systemic diseases
-soft Blood pressure- hold meds
#HLD
-hold statin
#Elevated LFTs
-Likely secondary to infection/sepsis, reduced perfusion
#Toxic metabolic encephalopathy
-Likely multifactorial with sepsis, possible HHS/severe hyperglycemia
Code status: DNR
DVT prophylaxis: SCDs
Anticipated Discharge: > 48 hours
Subjective/Interval History
-
Date of Service: May 13, 2024
Patient intubated
Objective Data
-
Labs:
Laboratory Results
05/13/24
04:53
WBC 12.8 H
Hgb 7.9 L
Hct 24.5 L
Plt Count Pending
HCO3 24.4
Sodium 134 L
Potassium 3.9 D
Chloride 99
Carbon Dioxide 25
BUN 28 H
Creatinine 3.4 H
Glucose 131 H
Calcium 7.3 L
Total Bilirubin 1.0
AST 22
ALT < 10
Alkaline Phosphatase 395 H
Vital Signs:
Vital Signs
Temp Pulse Resp BP Pulse Ox
98.6 F 76 14 81/71 98
05/13/24 04:00 05/13/24 06:30 05/13/24 06:30 05/11/24 21:11 05/13/24 06:30
I&O
05/12/24 05/13/24 05/14/24
06:59 06:59 06:59
Intake Total 1720.0 / 1792.5 1902.8 / 1902.8
Output Total 155 / 155 255 / 255
Balance 1565.0 / 1637.5 1647.8 / 1647.8
Review of Systems
-
Unable to obtain full review of systems at this time due to: Patient Intubation
Physical Exam
-
General: Intubated and Appears Chronically Ill
Respiratory: Non Labored Respirations; Negative Accessory Resp Muscle Use
Cardiac: Regular Rhythm, S1/S2 and Murmur; Negative Rub or Gallop
GI: Soft and Other (dressng intac. Daren drain with ssg)
Skin: Warm and Dry; Negative Rash
Data Reviewed
-
Labs: Labs Reviewed by me, Discussed with Physician and Discussed with Patient
--- NOTE | 2024-05-13 07:35 | W.PN.URO.CBU ---
Today's Communication / Plan
-
continue valverde with prn irrigation
Assessment / Plan
-
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
Klebsiella urosepsis and bacteremia
Significant pyuria secondary to cUTI - resolved
Malpositioned catheter w/ suboptimal drainage - resolved
Bilateral hydroureteronephrosis
Right subcapsular fluid collection
s/p ex lap and bowel resection/repair
pt now dialysis dependent
little to no UO- but cath flushes easily with no hematuria or evid of debris/obstruction
continue valverde for now as clinical status clarifies
will follow
Diagnosis
-
Date of Service: May 13, 2024
-
Patient Diagnosis:
Patient Diagnosis:
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
Klebsiella urosepsis/bacteremia
Significant pyuria secondary to cUTI
Bilateral hydroureteronephrosis is now resolved as valverde draining free of debris
s/p ex lap- repair of bowel perf
Subjective
-
pt intubated- although plan for attempted wean today
cr remains elevated- still HD dependent
valverde in place- little urine output- cath flushes easily and clear
Objective
-
Vital Signs
Temp Pulse Resp BP Pulse Ox
98.6 F 76 14 81/71 98
05/13/24 04:00 05/13/24 06:30 05/13/24 06:30 05/11/24 21:11 05/13/24 06:30
Intake and Output
05/12/24 05/13/24 05/14/24
06:59 06:59 06:59
Intake Total 1720.0 / 1792.5 1902.8 / 1902.8
Output Total 155 / 155 255 / 255
Balance 1565.0 / 1637.5 1647.8 / 1647.8
Intake:
IV fluids (Total) 1560.0 / 1632.5 892.8 / 892.8
D5/0.45%NaCl 1,000 ml @ 40 mls/ 720 / 720
hr IV .[facility] Rx#:[id number]
Levophed 645.0 / 705.0 496.3 / 496.3
Protonix 170 / 180 220 / 220
fent 25.0 / 27.5 158.5 / 158.5
vasopressin 18 / 18
IV piggybacks 160 / 160 660 / 660
Amount instilled into GI Tube ( 150 / 150
Total)
[place] Sump 150 / 150
Blood Products 200 / 200
Albumin 25% 200 / 200
Output:
Drain Output (Total) 115 / 115 180 / 180
Right Abdomen Alfie-Biswas 115 / 115 180 / 180
Gastrointestinal tube output ( 50 / 50
Total)
[place] Sump 50 / 50
Urine, Valverde 35 / 35 25 / 25
Urine, Voided 5 / 5 0 / 0
Laboratory Results
05/13/24 04:53
05/13/24 04:53
Review of Systems
-
Unable to obtain full review of systems at this time due to: Patient Intubation
Physical Exam
-
General - intubated
Genitalia - genital edema- valverde in place
[2024-05-13 08:04] LABS: Glucose - Point of Care 124 mg/dl (70-99)
--- NOTE | 2024-05-13 08:21 | W.PN.ID1 ---
Date of Service
Date of Service: May 13, 2024
Today's Communication
Continue Zosyn for today. Await final intra-abdominal cultures.
Assessment / Plan
# Perforated duodenal ulcer with peritonitis
- 05/12/24 s/p abd washout, repair of duodenal ulcer
Appreciate surgery.
OR gram stain: GPC in pairs; cx pending
- Continue Zosyn (d#4) pending OR findings and cultures.
# Septic shock due to above
- Continue ICU support
- Follow vitals/clinically
# s/p recent UGI bleed
# s/p Blood loss anemia
- s/p EGD: large duodenal ulcer with clots
# ARISTEO on CKD now on HD
# s/p Klebsiella complicated UTI with bacteremia
# Severe b/l hydroureter/hydronephrosis
# right renal subcapsular hematoma vs seroma vs urinoma
# Atonic bladder with chronic valverde
- pt declined percutaneous nephrostomy.
Per IR left hydro somewhat improved with CBI, valverde decompression and perc neph unlikely to help with renal function.
- Completed 14d of abx through 05/10/24.
Patient remains critically ill and vent dependent in ICU at this time.
Chief Complaint
-: Other (Bowel perforation)
Subjective / Review of Systems
Patient seen and examined. Remains on vent at this time.
Review of Systems: No Fever
Vital Signs / Physical Exam
Vital Signs
Vital Signs
Temp Pulse Resp BP Pulse Ox
97.8 F 76 14 81/71 97
05/13/24 07:30 05/13/24 06:30 05/13/24 06:30 05/11/24 21:11 05/13/24 08:03
Physical Exam
Constitutional: No Acute Distress and Acutely Ill
Head: Other (ET tube in place. NG tube in place.)
Eyes: Sclera Anicteric
Cardiovascular: Regular Rate and S1/S2
Pulmonary: Clear and Other (On vent.)
Gastrointestinal: Soft, Non Distended, Decreased Bowel Sounds and Other (MEREDITH drain serous fluid. )
Genito-Urinary: Valverde (minimal urine)
Extremities: Negative Edema
Skin: Negative Rash or Jaundice
Wound: Other
Neurological: Other (Arousable to touch.)
Objective Data
Lab Data
Lab Results
05/13/24 04:53
05/13/24 04:53
PT 16.6 Sec (11.4-14.6) H 05/10/24 07:46
INR 1.29 05/10/24 07:46
APTT 35.0 Sec (23.4-35.0) 05/10/24 07:46
Estimated Creat Clear 15 ml/min 05/13/24 04:53
Lactic Acid 0.7 mmol/L (0.7-2.0) 04/28/24 12:05
Total Bilirubin 1.0 mg/dl (0.2-1.3) 05/13/24 04:53
AST 22 U/L (17-59) 05/13/24 04:53
ALT < 10 U/L (0-50) 05/13/24 04:53
Alkaline Phosphatase 395 U/L (38-126) H 05/13/24 04:53
Most recent labs reviewed.
Micro Results:
05/11/24 10:20 Wound Culture - Preliminary
Abdomen Gram Stain - Preliminary
05/11/24 10:20 Anaerobic Culture - Preliminary
Fluid Culture pending. Anaerobic cultures are examined after 3
days incubation. Additional information to follow.
05/12/24 10:42 MRSA Screen - Pending
Nose
05/04/24 13:55 Urine Culture - Final
Urine NO GROWTH
04/29/24 09:09 Blood Culture - Final
Blood/Venous No Growth - Final Report
04/27/24 14:16 Blood Culture - Final
Blood/Venous No Growth - Final Report
04/26/24 15:46 Urine Culture - Final
Urine Klebsiella pneumoniae
04/26/24 19:21 Blood Culture - Final
Blood/Venous Klebsiella pneumoniae
Gram Stain - Final
04/26/24 15:02 Blood Culture - Final
Blood/Venous Klebsiella pneumoniae
Gram Stain - Final
04/27/24 Renal US: Bilateral hydronephrosis, moderate left and mild right.
05/04/24 CT a/p wo IV contrast: Severe bilateral hydroureter. No obstructing radiopaque stones are noted. Possible subcapsular right renal fluid collection. Limited evaluation without IV contrast. Renal masses and masses of the collecting system
and bladder cannot be excluded without IV contrast. Mild prostate hypertrophy.
05/07/24 CTa/p: 1. Negative for active gastrointestinal hemorrhage. As above, there is gastric and duodenal mucosal hyperenhancement, but no active bleeding is identified. Patient's known duodenal ulcer is not well seen at CT.
2. Persistent moderate left hydronephrosis and persistent bilateral hydroureter. As above, there is abnormal appearance of the right kidney with subcapsular collection which nearly completely surrounds the kidney. There are associated compressive
changes of the right kidney with diminished enhancement and misshapen cortex. There is mild prominence of the right renal collecting system, no marked hydronephrosis. Collection shows greater than simple fluid attenuation and could represent old
hematoma/seroma. Urinoma is also a diagnostic consideration. Presence or absence of superimposed infection cannot be determined by this examination. 3. Valverde catheter in position within decompressed urinary bladder. Diffuse marked urinary bladder
wall thickening related to either chronic outlet obstruction or neurogenic bladder.
05/09/24 CT a/p: Several loops of small bowel in the left abdomen with moderate circumferential wall thickening. Moderate abdominopelvic ascites. Progressed. Moderate bilateral pleural effusions.. Progressed bilaterally. Moderate left lower lobe
consolidation. Stable. Mild right lower lobe consolidation. Stable. Probably atelectasis. Moderate subcapsular right perinephric fluid collection. Differential diagnosis includes hematoma, seroma and less likely infection. Stable. Associated stable
compressive effects on the renal parenchyma. Addendum: Small bowel loops in the left hemiabdomen with wall thickening and a few small scattered foci of gas that appear to be centered within the small bowel wall raising concern for pneumatosis and
ischemic enteritis.
05/11/24 CXR: The endotracheal tube is in satisfactory position. There are moderate bilateral pleural effusions with associated compressive atelectasis at the retrocardiac left lung base
--- NOTE | 2024-05-13 08:28 | W.PN.INTV ---
Today's Communication / Plan
Recommendations
Mechanical ventilation; daily SAT/SBT if clinically appropriate --> plan to extubate today to BiPAP x 1 hour, then use bipap prn and at night with sleep
Pain control
Postoperative management as per general surgery
Maintain MAP>65, SBP>90
PPI drip
Abx
NGT to LIWS; defer clamping trial to general surgery
Avoid hypoglycemia with goal BG 140-180mg/dL; may need to resume lantus; continue ISS q4hr for now
Continue to trend H&H and platelet levels
Hold off on chemical DVT prophylaxis given duodenal ulcer with perforation; if H&H remained stable for the next 48 to 72 hours with no clinical signs of GIB then will restart heparin SQ
Continue with ICU level of care for this critically ill patient
Assessment
-
83-year-old male with history of hypertension, CAD, diabetes, hyperlipidemia, chronic kidney disease who was recently in the hospital with a UTI treated with antibiotics and Rosenthal catheter was placed for persistent retention presented with
confusion, new onset atrial fibrillation, and hyperglycemia-lamination builder initally consulted for DKA/new onset atrial fibrillation/critical care management 04/27/2024. Patient has been managed in the IMU since 05/07/2024, and then due to worsening
abdominal pain with tachypnea and reported altered mental status he was transferred to the ICU overnight on 05/09Clinical Manager Home Care service is asked to reevaluate the patient for additional management/recommendations.
Impression:
Abdominal pain due to perforated duodenal bulb ulcer with secondary peritonitis s/p ex-lap with abdominal washout and repair of duodenal ulcer with omental pedicle flap (POD#2)
Shock likely due to sepsis in the setting of perforated duodenal bulb ulcer and shock also has likely component from sedation - shock state now resolved
Toxic metabolic encephalopathy
Upper GI bleed due to duodenal ulcer currently on PPI gtt
Metabolic acidosis with normal AG - acidosis resolved
Hypoglycemia - now resolved and he is now hyperglycemic
Bacteremia-Klebsiella pneumonia due to UTI
Peritonitis with OR cultures (from 05/11/2024) growing Enterococcus species
ARISTEO on CKD now on HD
Moderate left hydronephrosis with persistent bilateral hydroureter (seen on CTA abdomen/pelvis from 05/07/2024)
Hyponatremia
Anemia
Thrombocytopenia
Leukocytosis with bandemia
Elevated ALP
Hx of new onset atrial fibrillation/atrial flutter
Hypoalbuminemia
Conditions present prior to admission:
Hypertension.
Hyperlipidemia.
CAD/stent.
[id number].
Neurogenic/atonic bladder with chronic Rosenthal catheter.
Chronic kidney disease stage IIIb.
Plan
He had continued to have worsening abdominal pain and went to OR on 05/11 and found to have a perforated 1cm duodenal bulb ulcer with evidence of diffuse peritonitis with 4 L of bilious ascites that was suctioned s/p ex lap with abdominal washout and
primary repair of duodenal ulcer with omental pedicle flap
- Defer postoperative management to general surgery
- Follow up OR cultures -Enterococcus species - follow-up further speciation + sensitivity
- Continue Zosyn
- Continue PPI gtt
- Keep NGT to low intermittent wall suction for decompression
- Hold tube feeds for now until told otherwise by general surgery
- Pain control
Continue with mechanical ventilation
- Titrate FiO2 + PEEP to keep SpO2 >90-94% ---> plan to extubate this AM - once extubated then he will be back to DNR/DNI
- Maintain plateau pressure <30
- Nebulizers if needed - currently not bronchospastic
- Aspiration precautions
Maintain SBP >90mmHg, MAP>65
- Vasopressors if needed
- s/p IV albumin 25g 25% to help raise oncotic pressure and also hopefully help vasopressor requirements
Patient hypoglycemic on AM of 05/10 --> follow blood sugar with q4hr POCT BG
- D5-1/2 NS now off as his BG have started to rise again >180 --> continue with high resistance ISS q4hr; if BG becomes elevated again then we will consider starting Lantus
Continue with HD as per nephrology
Trend potassium + serum sodium
Dialysis catheter inserted 04/28/2024 and HD initiated on 04/28/2204
Cultures reviewed
Patient previously had positive blood cultures on 04/26/2024 with Klebsiella pneumonia as well as urine culture on 04/26/2024 with Klebsiella pneumonia
- Repeat blood culture on 04/29/2024 and repeat urine culture on 05/04/2024 show NGTD
- ID was on board but then they signed off on 05/09/2024
- He was previously on Ancef from 05/02 - 05/08, s/p zosyn from 04/26 - 05/02 + rocephin x1 dose on 04/26; also got cefuroxime on 05/09 --> now back on Zosyn since 05/10
- Peritoneal cultures from the OR on 05/11 now growing Enterococcus species -follow-up speciation + sensitivities
- Trend WBC and monitor for fevers
Cardiology following-correspondence reviewed
Monitor for recurrence of A-fib - was in NSR with 1st degree AVB and now in a-flutter (rate controlled)
Eventual transition to oral anticoagulant-Eliquis
Follow hemoglobin
Transfuse as needed to keep Hb>7, plt>50k given recent UGIB
DVT prophylaxis-SCDs; last blood TRX on 05/07/2024 (he has had 8 units PRBC this admission); hold off on chemical prophylaxis for now given he is s/p ex lap with perforated duodenal ulcer seen intraoperatively - If Hb remains stable with no clinical
signs of Gi bleed for 24-48 hrs, then will start chemical ppx with heparin SQ
Nutrition on hold given he is s/p ex-lap from 05/11
PT/OT once extubated
IC access: Midline in RUE --> PICC
Critical care statement: A total of 38 minutes of critical care time was provided for this patient today. This includes management of unstable vital signs, evaluation of the patient at bedside, reviewing the patient's pertinent medical records
including radiographs, microbiology, laboratory evaluations, and discussion with primary team, consultants, pharmacy, nutrition, physical therapy, case management, charge nurse, critical care nursing, and respiratory therapy.
Data:
CT abdomen/pelvis with IV contrast 04/09/2024:
Small bowel loops in the left hemiabdomen with wall thickening and a few small scattered foci of gas that appear to be centered within the small bowel wall raising concern for pneumatosis and ischemic enteritis.
Several loops of small bowel in the left abdomen with moderate circumferential wall thickening. Differential diagnoses include inflammation, infection and less likely ischemia. New.
Moderate abdominopelvic ascites. Progressed.
Moderate bilateral pleural effusions.. Progressed bilaterally.
Moderate left lower lobe consolidation. Stable. Mild right lower lobe consolidation. Stable. Probably atelectasis.
Moderate subcapsular right perinephric fluid collection. Differential diagnosis includes hematoma, seroma and less likely infection. Stable. Associated stable compressive effects on the renal parenchyma.
Small hypodense right renal lesion decreased in size. This may represent a benign cyst. Infection an malignancy cannot be excluded. Severity evaluated by MRI examination.
Moderate air and Rosenthal catheter in the bladder. Stable.
Findings suggesting volume overload or third spacing. Stable.
CXR 05/13/2024: Possible bilateral pleural effusions without significant change. No pneumothorax.
Chest x-ray 04/26/2024-no focal consolidations, pleural effusions or pneumothorax
CT abdomen/pelvis with IV contrast 05/09/2024: compared to prior CTA A/P on 05/07/2024
Small bowel loops in the left hemiabdomen with wall thickening and a few small scattered foci of gas that appear to be centered within the small bowel wall raising concern for pneumatosis and ischemic enteritis.
Moderate abdominopelvic ascites. Progressed.
Moderate bilateral pleural effusions.. Progressed bilaterally.
Moderate left lower lobe consolidation. Stable. Mild right lower lobe consolidation. Stable. Probably atelectasis.
Moderate subcapsular right perinephric fluid collection. Differential diagnosis includes hematoma, seroma and less likely infection. Stable. Associated stable compressive effects on the renal parenchyma.
Small hypodense right renal lesion decreased in size. This may represent a benign cyst. Infection an malignancy cannot be excluded. Severity evaluated by MRI examination.
Moderate air and Rosenthal catheter in the bladder. Stable.
Findings suggesting volume overload or third spacing. Stable.
Subjective Dataa
Subjective Data
Date of Service:
Date of Service: May 13, 2024
Chief Complaint: Clinical Manager Home Care Follow Up
Subjective:
Patient was seen and evaluated today at bedside. Currently in a flutter with heart rate 78. BP 135/87 and saturating 98% on SBT at 5/5 at 40%. PIP is 11 cmH2O, VTe 430 mL and breathing at 15 breaths\\/minute. Currently on PPI drip. No current
signs of hematemesis or melena or hematochezia. Has mild abdominal pain mainly during palpation. Patient's at bedside and I answered all of her questions.
Review of Systems
General: Other (Unable to obtain due to patient's clinical status/endotracheal intubation)
Objective Data
Data Reviewed
Vital Signs / I&O / Oxygen:
Vital Signs
Temp Pulse Resp BP Pulse Ox
97.8 F 78 16 81/71 98
05/13/24 07:30 05/13/24 09:30 05/13/24 09:30 05/11/24 21:11 05/13/24 09:30
Intake and Output
05/12/24 05/13/24 05/14/24
06:59 06:59 06:59
Intake Total 1720.0 / 1792.5 1902.8 / 1912.8 60 / 60
Output Total 155 / 155 255 / 255 325 / 325
Balance 1565.0 / 1637.5 1647.8 / 1657.8 -265 / -265
SaO2 [A/C] 96
SaO2 98
Nasal Cannula flow liters per 5
minute
Physical Exam
General: Respiratory Distress (n), Pain (abdomen (mild and only with palpation)), Chills (n) and Sweats (n)
HEENT: Normocephalic, Anicteric, Moist Mucous Membranes and Other (ETT in place)
Cardiovascular: Murmur (DANAY heard best at RUSB) and Peripheral Edema (+1 lower extremity pitting edema bilaterally)
Respiratory: Wheeze (n), Crackles (Bibasilar), Rhonchi (n), Non-Labored Respirations, Accessory Resp Muscle Use (n), Stridor (n), ET Tube (Mechanical breath sounds heard bilaterally) and Other (Diminished breath sounds)
GI: Soft, Distended (Tense) and Tender (Diffusely with palpation)
Neurology: Awake, Alert, Tremors (negative) and Other (Following all commands)
Skin: Warm, Dry, Cyanosis (n) and Jaundice (n)
Labs/Micro/Reports
Lab Data
05/13/24 04:53
05/13/24 04:53
Laboratory Results
05/13/24
04:53
pH 7.49 H
pCO2 32 L
pO2 133 H
HCO3 24.4
O2 Delivery Level 40%, peep: 5
Microbiology
05/11/24 10:20 Abdomen Wound Culture - Preliminary
05/11/24 10:20 Abdomen Gram Stain - Preliminary
05/11/24 10:20 Fluid Anaerobic Culture - Preliminary
Culture pending. Anaerobic cultures are examined after 3
days incubation. Additional information to follow.
--- NOTE | 2024-05-13 08:31 | PHA.VAN.FU ---
Vancomycin Assessment / Plan
- Assessment
Hemodialysis Schedule: MWF
WBC's are: Stable
In the past 24 hrs, patient has been: Afebrile
Concomitant Antimicrobials: Piperacillin-tazobactam
- Dosing Plan
Continue: Dose by level post HD
- Monitoring Plan
Random Level: 12/8 AM
- Follow Up
Pharmacy will continue to follow.
Vancomycin Follow UP
- -
Patient Age: 83
Patient Sex: Male
Vancomycin Day #: 2
Indication: Gi / Intra-Abdominal
Requesting Provider: Javon
Pertinent Antimicrobial Allergies:
clopidogrel
Height / Weight:
Height 5 ft 6 in
Actual Weight 72.6 kg
Pertinent Past Medical History: neurogenic bladder, chronic valverde; ESRD on HD
- Vital Signs / Lab Results
Temp Pulse Resp BP Pulse Ox
97.8 F 76 14 81/71 97
05/13/24 07:30 05/13/24 06:30 05/13/24 06:30 05/11/24 21:11 05/13/24 08:03
Lab Results - Hematology
05/10/24 05/11/24 05/12/24
07:46 03:36 00:22
WBC 4.1 L 5.6 12.8 H
Band Neutrophils 38 H 38 H
05/13/24
04:53
WBC 12.8 H
Band Neutrophils
Lab Results - Chemistry
05/10/24 05/11/24 05/12/24
07:46 03:36 00:22
BUN 52 H 31 H 42 H
Creatinine 6.3 H* 4.1 H* 4.4 H*
Estimated Creat Clear 8 13 12
Albumin 1.8 L
05/12/24 05/13/24
08:15 04:53
BUN 46 H 28 H
Creatinine 4.7 H* 3.4 H
Estimated Creat Clear 11 15
Albumin 2.1 L
Microbiology Results
05/11/24 10:20 Wound Culture - Preliminary
Abdomen Gram Stain - Preliminary
05/11/24 10:20 Anaerobic Culture - Preliminary
Fluid Culture pending. Anaerobic cultures are examined after 3
days incubation. Additional information to follow.
--- NOTE | 2024-05-13 08:34 | PTCARENOTE ---
report received. assessments per work list. patient drowsy but easily arousable. anxious with care. fentanyl gtt on hold for spontaneous awakening trial and vent wean. monitor aflutter. left radial arterial line with good blood return. lungs with
tubular breath sounds. basilar crackles. poor inspiratory effort. ngt to LIS, green drainage. abdominal dressing in place. manisha to bulb, yellow fluid. valverde in place. irrigated by urologist. wrist restraints maintained for patient safety
[2024-05-13 08:53] LABS: Mean Platelet Volume 11.5 fL (7.4-10.4)
[2024-05-13 08:54] LABS: Platelet Count 71 10^3/uL (130-400)
[2024-05-13 08:55] LABS: % Basophils 0.3 % (0-2); % Eosinophils 1.7 % (0-6); % Immature Granulocytes 3.8 % (0-0.5); % Neutrophils 86.2 % (42.2-75.2); Absolute Eosinophils 0.2 10^3/uL (0-0.7); Absolute Immature Granulocytes 0.5 10^3/uL (0-0.05); Absolute Lymphocytes 0.6 10^3/uL (1.2-3.4); Absolute Monocytes 0.4 10^3/uL (0.1-0.6); Nucleated Red Blood Cells % 0.2 % (-)
[2024-05-13] MEDS: NSS (PRESERVATIVE FREE) IV ×2 (09:42→20:02)
--- NOTE | 2024-05-13 11:37 | W.PN.NEPH.PH ---
Today's Communication / Plan
-
wean vent per ICU
follow h/h
HD Wednesday
Assessment/Plan
-
Assessment
Hypertension
ARISTEO
DKA
Metabolic acidosis
Lactic acidosis
Hyperkalemia
Hyponatremia
azotemia
Neurogenic bladder with bilat hydro
Coronary artery disease
E faecalis urosepsis
Plan:
ARISTEO is likely due to combination of neurogenic bladder in setting of severe DKA
hb decreasing to 7.9 s/p PRBC
IR did not favor PCN intervention for obstructive uropathy, only minimal UOP
s/p exp lap and primary repair duodenal bulb ulcer with omental pedicle flap on 05/11
remains intubated
abx per ID on Zosym
BP soft, prn pressors to keep MAP >65
mild hypocalcemia-s/p IV yang rider-vit D low, PTH 103 appropriately high-add vit D2 when starts PO
NPO - ok for gentle IVF if needed
-
-
Date of Service: May 13, 2024
CC / HPI / ROS
-
Chief Complaint:
ARISTEO
History of Present Illness:
ARISTEO/Cr now on dialysis support
BP soft off pressors, remains intubated
Dx Lap; Exploratory laparotomy abdominal washout, primary repair duodenal bulb ulcer with omental pedicle flap 05/[address] abd shows bilateral hydro and bladder distension 05/05
hb low at 7.9
no significant UOP from valverde
no fever
Review of Systems:
intubated and sleeping during visit
40% Fio2
Labs
-
Labs:
WBC 12.8 10^3/uL (4.8-10.8) H 05/13/24 04:53
RBC 2.76 10^6/uL (4.70-6.10) L 05/13/24 04:53
Hgb 7.9 g/dL (13.0-18.0) L 05/13/24 04:53
Hct 24.5 % (39.0-52.0) L 05/13/24 04:53
Plt Count 71 10^3/uL (130-400) L D 05/13/24 04:53
Sodium 134 mmol/L (135-145) L 05/13/24 04:53
Potassium 3.9 mmol/L (3.5-5.1) D 05/13/24 04:53
Chloride 99 mmol/L (98-107) 05/13/24 04:53
Carbon Dioxide 25 mmol/L (22-30) 05/13/24 04:53
BUN 28 mg/dl (9-20) H 05/13/24 04:53
Creatinine 3.4 mg/dL (0.7-1.3) H 05/13/24 04:53
eGFR 17.30 05/13/24 04:53
Glucose 131 mg/dl (70-99) H 05/13/24 04:53
Calcium 7.3 mg/dl (8.4-10.2) L 05/13/24 04:53
Phosphorus 3.8 mg/dl (2.5-4.5) 05/13/24 04:53
Albumin 2.1 g/dl (3.5-5.0) L 05/13/24 04:53
Physical Exam
-
Vital Signs:
Vital Signs
Temp Pulse Resp BP Pulse Ox
97.8 F 78 19 81/71 100
05/13/24 07:30 05/13/24 11:00 05/13/24 11:00 05/11/24 21:11 05/13/24 11:34
Cardiovascular:: Regular rate and rhythm
Respiratory:: Bilateral: CTA (anteriorly)
Lung Excursion:: Abnormal
Abdomen:: Nontender and Soft
Extremity Edema:: +2: Bilateral:
Valverde Catheter: Yes
--- NOTE | 2024-05-13 11:50 | PTCARENOTE ---
reassessed. placed on vent wean. patient denies pain. ett suctioned for large amount white sputum with morse plug. manisha continues to drain increaed amounts yellow drainage. surgery in and aware
[2024-05-13 11:55] LABS: Glucose - Point of Care 122 mg/dl (70-99)
--- NOTE | 2024-05-13 12:19 | W.PN.GS2 ---
Addendum entered and electronically signed by Neil White MD 05/13/24 12:38:
I saw and examined the patient.
The Banquet Chef's note was reviewed and I agree with the note.
Comment: Improving. Off pressors. Vent wean i progress. Belly soft, drain non-bilious serous fluid with slight turbidity. IV abx, wean vent as reji
Original Note:
Today's Communication / Plan
-
Continue NPO/NGT/MEREDITH
Assessment / Plan
-
Assessment: 83-year-old male who presented initially in DKA with ARISTEO and urosepsis. Still being followed by urology and nephrology and now HD dependent who was taken to the OR emergently for perforated viscous.
POD #2 diagnostic laparoscopy with perforated duodenal ulcer noted with diffuse peritonitis; 4 L of bilious ascites; procedure converted to open exploratory laparotomy for abdominal washout, primary repair duodenal bulb ulcer with omental pedicle
flap.
Afebrile
Remains on mechanical ventilation post operatively
Levophed now weaned off with stable HR and BP
Plan:
Continue NGT to LIWS, leave in place if extubated
Continue strict NPO.
Will likely need UGI imaging prior to any PO intake or initiation of TF once more recovered (?wednesday)
Rosenthal as per urology
Continue IV abx
Continue PPI drip
Continue with MEREDITH
Analgesics as needed, on fentanyl gtt currently
Medical management as per primary team/special education aide
Subjective Data
-
Date of Service: May 13, 2024
Patient seen and examined at bedside with Dr. White. Opens eyes to light stimulation. Indicates that he is not in pain. ROS limited as he is intubated.
Objective Data
-
Intake and Output
05/12/24 05/13/24 05/14/24
06:59 06:59 06:59
Intake Total 1720.0 / 1792.5 1902.8 / 1912.8 80 / 80
Output Total 155 / 155 255 / 255 520 / 520
Balance 1565.0 / 1637.5 1647.8 / 1657.8 -440 / -440
Intake:
IV fluids (Total) 1560.0 / 1632.5 892.8 / 902.8 50 / 50
D5/0.45%NaCl 1,000 ml @ 40 mls/ 720 / 720
hr IV .Q24H SHARLENE Rx#:[id number]
Levophed 645.0 / 705.0 496.3 / 496.3
Protonix 170 / 180 220 / 230 50 / 50
fent 25.0 / 27.5 158.5 / 158.5
vasopressin 18 / 18
IV piggybacks 160 / 160 660 / 660
Amount instilled into GI Tube ( 150 / 150 30 / 30
Total)
Colbert Sump 150 / 150 30 / 30
Blood Products 200 / 200
Albumin 25% 200 / 200
Output:
Drain Output (Total) 115 / 115 180 / 180 270 / 270
Right Abdomen Alfie-Biswas 115 / 115 180 / 180 270 / 270
Gastrointestinal tube output ( 50 / 50 250 / 250
Total)
Colbert Sump 50 / 50 250 / 250
Urine, Rosenthal 35 / 35 25 / 25
Urine, Voided 5 / 5 0 / 0
Vital Signs
Temp Pulse Resp BP Pulse Ox
98.3 F 78 19 81/71 98
05/13/24 11:30 05/13/24 11:00 05/13/24 11:00 05/11/24 21:11 05/13/24 11:49
Lab Results
05/13/24 04:53
05/13/24 04:53
Calcium 7.3 mg/dl (8.4-10.2) L 05/13/24 04:53
Phosphorus 3.8 mg/dl (2.5-4.5) 05/13/24 04:53
Magnesium 2.2 mg/dl (1.6-2.3) 05/13/24 04:53
Total Bilirubin 1.0 mg/dl (0.2-1.3) 05/13/24 04:53
AST 22 U/L (17-59) 05/13/24 04:53
ALT < 10 U/L (0-50) 05/13/24 04:53
Alkaline Phosphatase 395 U/L (38-126) H 05/13/24 04:53
Total Protein 4.3 g/dl (6.3-8.2) L 05/13/24 04:53
Albumin 2.1 g/dl (3.5-5.0) L 05/13/24 04:53
Physical Exam
-
NAD
Vented with ETT in place
ABD: Mildly distended, generalized tenderness, surgical dressing intact. NGT with minimal bilious outputs. MEREDITH with SSF
[2024-05-13 13:24] LABS: B.E. 2.6 mmol/L; HCO3 26.1 mmol/L (21-28); O2 Saturation % 99.5 % (94-98); PCO2 35 mmHg (35-48); PO2 114 mmHg (83-108); pH 7.48 (7.35-7.45)
[2024-05-13 13:50] LABS: B.E. 0.6 mmol/L; O2 Saturation % 99.1 % (94-98); PCO2 33 mmHg (35-48); PO2 107 mmHg (83-108); pH 7.47 (7.35-7.45)
[2024-05-13 14:45] VITALS: BP_SYST 141
[2024-05-13 14:50] VITALS: BP_SYST 141
--- NOTE | 2024-05-13 14:50 | PTCARENOTE ---
patient extubated to Bipap without issue. spouse at bedside
[2024-05-13 14:58] VITALS: PULSE 2; PULSE 73
[2024-05-13 15:54] LABS: Glucose - Point of Care 130 mg/dl (70-99)
--- NOTE | 2024-05-13 16:49 | PTCARENOTE ---
reassessed. lungs with oarse breath sounds bilaterally. MEREDITH draining large amount yellow fluid. family at bedside. patient denies pain. call shaffer in reach
[2024-05-13 17:42] VITALS: BP 146/55
--- NOTE | 2024-05-13 17:51 | PTCARENOTE ---
patient oriented to person and place. no recollection of events from recent days. encouraged to cough and deep breathe. placed on nasal cannula. family at bedside. call shaffer in reach
--- NOTE | 2024-05-13 20:00 | PTCARENOTE ---
Received patient at 1900. Pt. currently awake. Oriented to self and place. Forgetful about current hospitalization. Denies pain/discomfort. Afebrile. Heart rhythm aflutter (known). Blood pressure normotensive. Currently on nasal cannula, plan for
bipap HS. NPO. NG tube too LIS. Rosenthal catheter in place per order. Skin as documented. Discussed plan of care with patient and at bedside. Vital signs stable at this time.
[2024-05-13 23:16] LABS: Glucose - Point of Care 130 mg/dl (70-99)
[2024-05-14] VITALS (7 sets, daily range): BP systolic 96–135; BP diastolic 42–80; BMI 25.0
--- NOTE | 2024-05-14 00:08 | PTCARENOTE ---
Pt. assessment unchanged. Remains confused about current situation. Respiratory therapist attempted to place patient on bipap mask HS. Pt. became apprehensive, and work of breathing increased. Respiratory therapist decided to leave patient on nasal
cannula. Pt. more calm and less work of breathing while on nasal cannula. Vital signs stable at this time.
[2024-05-14] MEDS: ZOSYN 50 IV ×3 (03:27→21:30)
--- NOTE | 2024-05-14 04:30 | PTCARENOTE ---
Pt. assessment remains unchanged. Remains forgetful to situation/hospitalization. Discussed hospitalization and plan of care with patient. AM labs drawn. Vital signs stable at this time.
[2024-05-14 04:55] LABS: Hematocrit 31.5 % (39.0-52.0); Hemoglobin 10.3 g/dL (13.0-18.0); Mean Corp Hgb Conc. 32.7 g/dL (33.0-37.0); Mean Corpuscular Hgb 29.5 pg (27.0-31.0); Mean Corpuscular Volume 90.3 fL (80.0-94.0); Mean Platelet Volume 12.2 fL (7.4-10.4); Platelet Count 60 10^3/uL (130-400); Red Blood Cell Count 3.49 10^6/uL (4.70-6.10); Red Cell Dist. Width 15.9 % (11.5-14.5)
[2024-05-14 05:03] LABS: Blood Urea Nitrogen 43 mg/dl (9-20); Calcium 7.1 mg/dl (8.4-10.2); Carbon Dioxide 21 mmol/L (22-30); Chloride 99 mmol/L (98-107); Estimated Creatinine Clearance 12 ml/min; Glucose 135 mg/dl (70-99); Magnesium 2.4 mg/dl (1.6-2.3); Potassium 4.5 mmol/L (3.5-5.1); Sodium 133 mmol/L (135-145)
[2024-05-14] MEDS: NOVOLOG FLEXPEN-HIGH RESISTANCE 1 UNITS SC (05:56)
--- NOTE | 2024-05-14 07:13 | W.PN.URO.CBU ---
Today's Communication / Plan
-
continue valverde
Assessment / Plan
-
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
Klebsiella urosepsis and bacteremia
Significant pyuria secondary to cUTI - resolved
Malpositioned catheter w/ suboptimal drainage - resolved
Bilateral hydroureteronephrosis
Right subcapsular fluid collection
s/p ex lap and bowel resection/repair
pt now dialysis dependent
cath flushes easily with no hematuria or evid of debris/obstruction
continue valverde for now as clinical status clarifies
will follow
Diagnosis
-
Date of Service: May 14, 2024
-
Patient Diagnosis:
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
Klebsiella urosepsis/bacteremia
Significant pyuria secondary to cUTI
Bilateral hydroureteronephrosis is now resolved as valverde draining free of debris
s/p ex lap- repair of bowel perf
Subjective
-
pt extubated
valverde in place and functional- mild improvement in urine output over last 12 hours
Objective
-
Vital Signs
Temp Pulse Resp BP Pulse Ox
98.6 F 76 14 146/55 99
05/14/24 04:00 05/14/24 06:30 05/14/24 06:30 05/13/24 17:42 05/14/24 06:30
Intake and Output
05/13/24 05/14/24 05/15/24
06:59 06:59 06:59
Intake Total 1902.8 / 1912.8 460 / 460
Output Total 255 / 255 1430 / 1430
Balance 1647.8 / 1657.8 -970 / -970
Intake:
IV fluids (Total) 892.8 / 902.8 240 / 240
Levophed 496.3 / 496.3
Protonix 220 / 230 240 / 240
fent 158.5 / 158.5
vasopressin 18 / 18
IV piggybacks 660 / 660 100 / 100
Amount instilled into GI Tube ( 150 / 150 120 / 120
Total)
Holliston Sump 150 / 150 120 / 120
Blood Products 200 / 200
Albumin 25% 200 / 200
Output:
Drain Output (Total) 180 / 180 930 / 930
Right Abdomen Alfie-Biswas 180 / 180 930 / 930
Gastrointestinal tube output ( 50 / 50 400 / 400
Total)
Holliston Sump 50 / 50 400 / 400
Urine, Valverde 25 / 25 100 / 100
Urine, Voided 0 / 0
Laboratory Results
05/14/24 04:22
05/14/24 04:22
Review of Systems
-
Constitutional: Fatigue
Respiratory: No Symptoms
Cardiac: No Symptoms
Abdomen/GI: Abdominal Pain
Physical Exam
-
General - no acute distress
Genitalia - mild edema- valverde in place
--- NOTE | 2024-05-14 07:51 | PTCARENOTE ---
report received, assessments per work list. patient denies pain, confused at times. forgetfull. mildly anxious. oriented to person and place, but has no recollection of events of the hospital. monitor aflutter. left radial arterial line with cuff
correlation. weeping anasarca right arm. right abdominal MEREDITH draining large amounts yellow fluid with occasional tissue noted in bulb. lungs with coarse breath sounds. unable to perform IS. no bowel sounds. NGT to LIS, scant amount green drainage.
valverde draining small amount yellow urine. repositioned. call shaffer in hand. bed alarm on for patient safety
--- NOTE | 2024-05-14 08:27 | W.PN.INTV ---
Today's Communication / Plan
Recommendations
Extubated on 05/13 and he is breathing comfortably on 2 L/min nasal cannula saturating 96%
Pain control
Postoperative management as per general surgery
Maintain MAP>65, SBP>90
PPI drip
Abx
NGT to LIWS; defer clamping trial to general surgery
Avoid hypoglycemia with goal BG 140-180mg/dL; may need to resume lantus; continue ISS q6hr for now
Continue to trend H&H and platelet levels
Hold off on chemical DVT prophylaxis given duodenal ulcer with perforation; if H&H remained stable for the next 48 to 72 hours with no clinical signs of GIB then will restart heparin SQ
Patient is stable for downgrade out of ICU to IMU. No additional recommendations at this time. Sprinkling Truck Driver/Pulmonary service will now sign off. Please re-consult if there are any additional questions/concerns, or if patient's respiratory status
deteriorates.
Assessment
-
83-year-old male with history of hypertension, CAD, diabetes, hyperlipidemia, chronic kidney disease who was recently in the hospital with a UTI treated with antibiotics and Rosenthal catheter was placed for persistent retention presented with
confusion, new onset atrial fibrillation, and hyperglycemia-clothing examiner initally consulted for DKA/new onset atrial fibrillation/critical care management 04/27/2024. Patient has been managed in the IMU since 05/07/2024, and then due to worsening
abdominal pain with tachypnea and reported altered mental status he was transferred to the ICU overnight on 05/09Sprinkling Truck Driver service is asked to reevaluate the patient for additional management/recommendations.
Impression:
Abdominal pain due to perforated duodenal bulb ulcer with secondary peritonitis s/p ex-lap with abdominal washout and repair of duodenal ulcer with omental pedicle flap (POD#3)
Shock likely due to sepsis in the setting of perforated duodenal bulb ulcer and shock also has likely component from sedation - shock state now resolved
Toxic metabolic encephalopathy - resolved
Upper GI bleed due to duodenal ulcer currently on PPI gtt
Metabolic acidosis with normal AG
Hypoglycemia - now resolved
Bacteremia-Klebsiella pneumonia due to UTI
Peritonitis with OR cultures (from 05/11/2024) growing Enterococcus species
ARISTEO on CKD now on HD
Moderate left hydronephrosis with persistent bilateral hydroureter (seen on CTA abdomen/pelvis from 05/07/2024)
Hyponatremia
Anemia
Thrombocytopenia
Leukocytosis with bandemia
Elevated ALP
Hx of new onset atrial fibrillation/atrial flutter
Hypoalbuminemia
Conditions present prior to admission:
Hypertension.
Hyperlipidemia.
CAD/stent.
Tbpcycih-nopotat-dvzetyxzc.
Neurogenic/atonic bladder with chronic Rosenthal catheter.
Chronic kidney disease stage IIIb.
Plan
He had continued to have worsening abdominal pain and went to OR on 05/11 and found to have a perforated 1cm duodenal bulb ulcer with evidence of diffuse peritonitis with 4 L of bilious ascites that was suctioned s/p ex lap with abdominal washout and
primary repair of duodenal ulcer with omental pedicle flap
- Defer postoperative management to general surgery
- Follow up OR cultures -Enterococcus species - follow-up further speciation + sensitivity
- Continue Zosyn + IV vanco
- Continue PPI gtt
- Keep NGT to low intermittent wall suction for decompression
- Hold tube feeds for now until told otherwise by general surgery
- Pain control
Pt was extubated on 05/13 and is doing well since that time; currently on 2 L/min nasal cannula, breathing comfortably and saturating 96%
-Since being extubated, code status was reverted back to prior status, which is DNR/DNI - this was confirmed with the patient and the prior to adjusting it yesterday
- Keep SpO2 >90-94%
- Nebulizers if needed - currently not bronchospastic
- Aspiration precautions
Maintain SBP >90mmHg, MAP>65
- Off vasopressors for >24 hrs
- s/p IV albumin 25g 25% to help raise oncotic pressure
Patient hypoglycemic on AM of 05/10 --> follow blood sugar with q6hr POCT BG
- Goal BG 140-180 using ISS
Continue with HD as per nephrology
Trend potassium + serum sodium
Dialysis catheter inserted 04/28/2024 and HD initiated on 04/28/2204
Cultures reviewed
Patient previously had positive blood cultures on 04/26/2024 with Klebsiella pneumonia as well as urine culture on 04/26/2024 with Klebsiella pneumonia
- Repeat blood culture on 04/29/2024 and repeat urine culture on 05/04/2024 show NGTD
- ID was on board but then they signed off on 05/09/2024
- He was previously on Ancef from 05/02 - 05/08, s/p zosyn from 04/26 - 05/02 + rocephin x1 dose on 04/26; also got cefuroxime on 05/09 --> now back on Zosyn since 05/10
- Peritoneal cultures from the OR on 05/11 now growing Enterococcus species - follow-up speciation + sensitivities
- Trend WBC and monitor for fevers
Cardiology following-correspondence reviewed
Monitor for recurrence of A-fib - was in NSR with 1st degree AVB and now in and out of A-flutter (rate controlled)
Eventual transition to oral anticoagulant-Eliquis (still holding PO meds)
Follow hemoglobin
Transfuse as needed to keep Hb>7, plt>50k given recent UGIB and post-operative status
DVT prophylaxis-SCDs; last blood TRX on 05/07/2024 (he has had 8 units PRBC this admission); hold off on chemical prophylaxis for now given he is s/p ex lap with perforated duodenal ulcer seen intraoperatively - If Hb remains stable with no clinical
signs of GI bleed for 24-48 hrs, then will start chemical ppx with heparin SQ
Nutrition on hold given he is s/p ex-lap from 05/11
PT/OT
IC access: Midline in RUE --> PICC
Patient is stable for downgrade out of ICU to IMU. No additional recommendations at this time. Sprinkling Truck Driver/Pulmonary service will now sign off. Thank you for allowing us to be involved in the care of this patient. Please reconsult if there are
any additional questions/concerns, or if patient's respiratory status deteriorates.
Data:
CT abdomen/pelvis with IV contrast 04/09/2024:
Small bowel loops in the left hemiabdomen with wall thickening and a few small scattered foci of gas that appear to be centered within the small bowel wall raising concern for pneumatosis and ischemic enteritis.
Several loops of small bowel in the left abdomen with moderate circumferential wall thickening. Differential diagnoses include inflammation, infection and less likely ischemia. New.
Moderate abdominopelvic ascites. Progressed.
Moderate bilateral pleural effusions.. Progressed bilaterally.
Moderate left lower lobe consolidation. Stable. Mild right lower lobe consolidation. Stable. Probably atelectasis.
Moderate subcapsular right perinephric fluid collection. Differential diagnosis includes hematoma, seroma and less likely infection. Stable. Associated stable compressive effects on the renal parenchyma.
Small hypodense right renal lesion decreased in size. This may represent a benign cyst. Infection an malignancy cannot be excluded. Severity evaluated by MRI examination.
Moderate air and Rosenthal catheter in the bladder. Stable.
Findings suggesting volume overload or third spacing. Stable.
CXR 05/13/2024: Possible bilateral pleural effusions without significant change. No pneumothorax.
Chest x-ray 04/26/2024-no focal consolidations, pleural effusions or pneumothorax
CT abdomen/pelvis with IV contrast 05/09/2024: compared to prior CTA A/P on 05/07/2024
Small bowel loops in the left hemiabdomen with wall thickening and a few small scattered foci of gas that appear to be centered within the small bowel wall raising concern for pneumatosis and ischemic enteritis.
Moderate abdominopelvic ascites. Progressed.
Moderate bilateral pleural effusions.. Progressed bilaterally.
Moderate left lower lobe consolidation. Stable. Mild right lower lobe consolidation. Stable. Probably atelectasis.
Moderate subcapsular right perinephric fluid collection. Differential diagnosis includes hematoma, seroma and less likely infection. Stable. Associated stable compressive effects on the renal parenchyma.
Small hypodense right renal lesion decreased in size. This may represent a benign cyst. Infection an malignancy cannot be excluded. Severity evaluated by MRI examination.
Moderate air and Rosenthal catheter in the bladder. Stable.
Findings suggesting volume overload or third spacing. Stable.
Total time spent today was 78 minutes for this encounter. Time includes reviewing laboratory test/imaging results, reviewing pertinent medical records, obtaining and reviewing medical history, performing an appropriate exam, ordering medications,
tests and procedures. Time also includes documentation of this encounter, coordinating patient care and communicating with other healthcare professionals. Total time does not include separately billed tests performed on this date of service.
Subjective Dataa
Subjective Data
Date of Service:
Date of Service: May 14, 2024
Chief Complaint: Sprinkling Truck Driver Follow Up
Subjective:
Patient was seen and evaluated today at bedside. Currently on 2 L/min nasal cannula saturating 96%, heart rate 77 and BP 128/66. Patient's at bedside and I answered all of her questions. He denies abdominal pain, chest pain, CRUZ, nausea,
fevers or chills.
Review of Systems
General: Other (Negative unless mentioned above)
Objective Data
Data Reviewed
Vital Signs / I&O / Oxygen:
Vital Signs
Temp Pulse Resp BP Pulse Ox
96.8 F L 76 20 124/53 97
05/14/24 07:31 05/14/24 07:36 05/14/24 07:36 05/14/24 07:36 05/14/24 07:55
Intake and Output
05/13/24 05/14/24 05/15/24
06:59 06:59 06:59
Intake Total 1902.8 / 1912.8 460 / 470 40 / 40
Output Total 255 / 255 1430 / 1430 300 / 300
Balance 1647.8 / 1657.8 -970 / -960 -260 / -260
SaO2 [CPAP/PSV] 98
SaO2 [A/C] 96
SaO2 97
Nasal Cannula flow liters per 4
minute
Physical Exam
General: Respiratory Distress (n), Pain (abdomen (mild and only with palpation)), Chills (n) and Sweats (n)
HEENT: Normocephalic, Anicteric and Moist Mucous Membranes
Cardiovascular: Murmur (DANAY heard best at RUSB) and Peripheral Edema (Trace lower extreme edema bilaterally)
Respiratory: Wheeze (n), Crackles (Bibasilar), Rhonchi (n), Non-Labored Respirations, Accessory Resp Muscle Use (n) and Stridor (n)
GI: Soft, Distended (Tense) and Tender (Mild with palpation)
Neurology: Awake, Alert and Tremors (negative)
Skin: Warm, Dry, Cyanosis (n) and Jaundice (n)
Labs/Micro/Reports
Lab Data
05/14/24 04:22
05/14/24 04:22
Laboratory Results
05/13/24 05/13/24
13:00 13:41
pH 7.48 H 7.47 H
pCO2 35 33 L
pO2 114 H 107
HCO3 26.1 24.0
O2 Delivery Level Not Reportable
Microbiology
05/12/24 10:42 Nose MRSA Screen - Final
No Methicillin Resistant Staphylococcus aureus isolated.
05/11/24 10:20 Abdomen Wound Culture - Preliminary
Enterococcus species
05/11/24 10:20 Abdomen Gram Stain - Preliminary
05/11/24 10:20 Fluid Anaerobic Culture - Preliminary
Culture pending. Anaerobic cultures are examined after 3
days incubation. Additional information to follow.
--- NOTE | 2024-05-14 08:40 | PHA.VAN.FU ---
Vancomycin Assessment / Plan
- Assessment
Hemodialysis Schedule: MWF
WBC's are: Stable
In the past 24 hrs, patient has been: Hypothermic (Tmin = 96.8)
Concomitant Antimicrobials: Piperacillin-tazobactam
- Assessment - Therapeutic Drug Monitoring
Random Level: R = 10 ~ 38hrs post Vanc 1gm
- Dosing Plan
Continue: Dose by level post HD
Dosing by Level: Re-dose today (Vanc 500mg today)
Dosing Comments: Will give 500mg to keep patient in 10-15 range
- Monitoring Plan
Random Level: 12/9 AM
- Follow Up
Pharmacy will continue to follow.
Vancomycin Follow UP
- -
Patient Age: 83
Patient Sex: Male
Vancomycin Day #: 3
Indication: Gi / Intra-Abdominal
Requesting Provider: Javon
Pertinent Antimicrobial Allergies:
clopidogrel
Height / Weight:
Height 5 ft 6 in
Actual Weight 70.1 kg
Pertinent Past Medical History: neurogenic bladder, chronic valverde; ESRD on HD
- Vital Signs / Lab Results
Temp Pulse Resp BP Pulse Ox
96.8 F L 76 20 124/53 97
05/14/24 07:31 05/14/24 07:36 05/14/24 07:36 05/14/24 07:36 05/14/24 07:55
Lab Results - Hematology
05/12/24 05/13/24 05/14/24
00:22 04:53 04:22
WBC 12.8 H 12.8 H 13.0 H
Lab Results - Chemistry
05/12/24 05/12/24 05/13/24
00:22 08:15 04:53
BUN 42 H 46 H 28 H
Creatinine 4.4 H* 4.7 H* 3.4 H
Estimated Creat Clear 05 17 15
Albumin 2.1 L
05/14/24
04:22
BUN 43 H
Creatinine 4.4 H*
Estimated Creat Clear 12
Albumin
Microbiology Results
05/12/24 10:42 MRSA Screen - Final
Nose No Methicillin Resistant Staphylococcus aureus isolated.
05/11/24 10:20 Wound Culture - Preliminary
Abdomen Enterococcus species
Gram Stain - Preliminary
05/11/24 10:20 Anaerobic Culture - Preliminary
Fluid Culture pending. Anaerobic cultures are examined after 3
days incubation. Additional information to follow.
Therapeutic Drug Monitoring
Random Vancomycin 10.0 ug/ml 05/14/24 04:22
[2024-05-14] MEDS: PROTONIX 100 IV ×2 (08:59→19:27)
--- NOTE | 2024-05-14 09:34 | W.PN.HOSP.TC ---
Addendum entered and electronically signed by Tammi Alejandro MD 05/14/24 15:11:
I saw and evaluated the patient. I reviewed the resident�s note and agree with findings and plan as documented in the resident�s note except for changes in my documentation.
Awake and alert , slightly confused
Cardiovascular system S1-S2 appreciated
Chest decreased breath sounds bilateral bases
Abdomen midline surgical wound MEREDITH drain, no bowels sounds
Bilateral pedal edema
Bilateral upper extremity edema
# Perforated duodenal ulcer status post diagnostic laparoscopy, exploratory laparotomy, abdominal washout, primary repair of duodenal bulb ulcer with omental pedicle flap by Dr. Diaz on 05/11/2024.
Postop care. Continue n.p.o.
NGT
Continue PPI GTT
Await return of bowel function
# CHS-wakdanmrvhlfol-G told patient's that it may not get better until he reaches home
# Postop Vent- Off Vent now.
# Septic shock secondary to perforated duodenal ulcer-continue Zosyn and vancomycin Await further identification of enterococcus. Off Levophed and vasopressin.
# Sepsis secondary to catheter related UTI
Neurogenic bladder with chronic Valverde catheter change in the ER
05/04/24 CT a/p severe bilateral hydroureter. No stones. Severe bladder distention to above level of umbilicus.
05/07 CT a/p; right renal subcapsular hematoma vs seroma vs urinoma
Completed CBI secondary to purulence
IR reviewed the patient's imaging. Left hydronephrosis improved since 05/07/2024. Likely related to Valverde decompression. Left PCN not advised
Neurogenic bladder with chronic Valverde catheter exchanged in the ER
# End-stage renal disease at this point-started on dialysis Wednesday. Has a tunneled HD catheter placed
# New onset atrial fibrillation-plan on anticoagulation when stable from surgical stance
# HHNK-was on Tresiba as outpatient held was placed on insulin drip. Lantus 12 started which wis held now, am Hemoglobin A1c was 9.6 on admission. Unclear if is reliable with anemia.Continue sliding scale coverage for now.
# Thrombocytopenia-watch. Possible from meds, But also check HIT Panel.
# TME-multifactorial- watch
# Hyponatremia-hypervolemic ,watch. Correct with dialysis
# Anemia acute blood loss anemia and anemia of chronic disease
# Elevated LFTs- Improving. Possible shock liver secondary to hypotension
# Vitamin D deficiency-replace when able to take PO
# Secondary hyperparathyroidism
# Essential hypertension-Hold Coreg and amlodipine
# Hyperlipidemia-Hold statin
# Coronary artery disease with stent 2021. Hold statin and beta-elsie as NPO. Prasugrel stopped when patient was started on Eliquis ( AC on hold now).
# Indeterminate 1.4 cm left adrenal nodule-OP Work up
# Hypoalbuminemia
# DVT prophylaxis- SCDs
# CODE STATUS-DNR
updated in detail
Part of this note was created using voice recognition system. Occasional wrong word or��sound alike� substitutions may have inadvertently occurred due to the inherent limitations of voice recognition software. If noted kindly bring it to my
attention for correction.
D/W RN
OK for IMU
TIME OVER 50 MIN
Original Note:
Today's Communication/Plan
-
continue abx
diet per surgery
continue valverde
HD tomorrow
Assessment / Plan
Assessment / Plan
83-year-old male with known past medical history of essential hypertension currently on multiple drugs, insulin-dependent diabetes, neurogenic/atonic bladder with chronic Valverde catheter, coronary artery disease/[place] 3 years ago s/p cardiac stenting
and currently on prasugrel and CKD 3B presented with his due to confusion and lethargy for few days. Hb dropped after started on eliquis for new onset a fib.
#UGIB
#PUD
# Perforated duodenal ulcer with peritonitis
-unclear if it is related to eliquis use since he was on prasugrel before
-Status post 8 units of PRBC total this hospital stay
-Developed dark maroon stools after being started on Eliquis last week
-EGD showed nonbleeding peptic ulcer and a large duodenal ulcer with clot adherent
-per GI hold anticoagulants; cardio recommend to start single agent eliquis when ok by GI
-POD #3 Perforated duodenal bulb ulcer
-s/p Exploratory laparotomy abdominal washout,
-MEREDITH with serosanguineous drainage hemoglobin stable.
-Peritonitis;Zosyn(day 5). Continue PPI drip.
- NPO; extubated; off pressors; bp stable
-continue vanco for now ;mrsa negative, abdominal fluid culture final report pending
- abdominal fluid culture +enterococcus
#Sepsis due to CAUTI - POA
septic shock due to above
#Neurogenic bladder with chronic valverde catheter
-urine culture showed Klebsiella pneumonia
-appreciate urology recs-continue valverde
-Will need outpatient follow-up with urology
- hold finasteride, tamsulosin; continue with Valverde at discharge
- IR recommend to hold off on PCN for now
-cont zosyn; ID following
#New onset ESRD
#H/O CKD 3B
-Has been initiated on HD every M// with nephrology here; HD today
-Had tunneled HD cath placed for long-term dialysis access; Right UE swelling, US no dvt
-Recent CT showed ongoing obstructive uropathy, now s/p Valverde catheter
-Trend daily BMP, continue with dialysis as scheduled
-Will need follow-up at discharge with nephrology and urology
#New onset Atrial fibrillation
-[id number] score 5, nonvalvular
-Was already on rate controlling agent with home carvedilol
-Was started on Eliquis here though currently on hold for UGIB as above
-cardio recommend to start single agent eliquis when ok by GI
#Type 2 DM
-Home medications include Lantus, NovoLog, Tresiba; previously on Farxiga
-Had severe hyperglycemia on arrival, suspected to be HHS, now improved
-Blood glucose currently stable on ssc insulin
#CAD s/p PCI
-Had PCI in 2021; Home meds include high intensity statin, beta-elsie, prasugrel
-Due to occurrence of new onset AF, prasugrel was transition to Eliquis
-Eliquis currently on hold due to GI bleeding as above
#Essential HTN
-Home medications include carvedilol, amlodipine
-No known history of hypertensive systemic diseases
#HLD
-hold statin
#Elevated LFTs
-Likely secondary to infection/sepsis, reduced perfusion
#Toxic metabolic encephalopathy
-Likely multifactorial with sepsis, possible HHS/severe hyperglycemia
Code status: DNR
DVT prophylaxis: SCDs
Anticipated Discharge: > 48 hours
Subjective/Interval History
-
Date of Service: May 14, 2024
no new complaints. feeling better.
Objective Data
-
Labs:
Laboratory Results
05/14/24
04:22
WBC 13.0 H
Hgb 10.3 L D
Hct 31.5 L
Plt Count 60 L
Sodium 133 L
Potassium 4.5
Chloride 99
Carbon Dioxide 21 L
BUN 43 H
Creatinine 4.4 H*
Glucose 135 H
Calcium 7.1 L
Vital Signs:
Vital Signs
Temp Pulse Resp BP Pulse Ox
96.8 F L 76 20 124/53 97
05/14/24 07:31 05/14/24 07:36 05/14/24 07:36 05/14/24 07:36 05/14/24 07:55
I&O
05/13/24 05/14/24 05/15/24
06:59 06:59 06:59
Intake Total 1902.8 / 1912.8 460 / 470 40 / 40
Output Total 255 / 255 1430 / 1430 300 / 300
Balance 1647.8 / 1657.8 -970 / -960 -260 / -260
Review of Systems
-
History Source: Patient
Constitutional: Reports No Symptoms
Respiratory: Reports No Symptoms
Cardiac: Reports No Symptoms
Abdomen/GI: Reports No Symptoms
Genitourinary: Reports No Symptoms
Physical Exam
-
General: Well Developed, Comfortable, Appears Chronically Ill and Other (NG in place)
Respiratory: Non Labored Respirations; Negative Accessory Resp Muscle Use
Cardiac: Regular Rhythm and S1/S2; Negative Murmur, Rub or Gallop
GI: Soft and Other (dressing intact. Daren drain with ssg)
Skin: Warm and Dry; Negative Rash
Neuro: Awake, Alert and Oriented
Psych: Calm
Data Reviewed
-
Labs: Labs Reviewed by me and Discussed with Physician
Old Records: Reviewed
[2024-05-14] MEDS: VANCOCIN HCL 500 MG 100 IV (09:47)
[2024-05-14] MEDS: NSS (PRESERVATIVE FREE) IV ×2 (09:48→21:28)
--- NOTE | 2024-05-14 10:04 | W.PN.ID1 ---
Date of Service
Date of Service: May 14, 2024
Today's Communication
Continue antibiotics
Assessment / Plan
# Perforated duodenal ulcer with peritonitis
- 05/12/24 s/p abd washout, repair of duodenal ulcer
- OR gram stain: GPC in pairs; cx Enterococcus species
- Continue Zosyn (d#5) pending OR cultures.
# Septic shock due to above
- Continue ICU support
- Follow vitals/clinically
# s/p recent UGI bleed
# s/p Blood loss anemia
- s/p EGD: large duodenal ulcer with clots
# ARISTEO on CKD now on HD
# s/p Klebsiella complicated UTI with bacteremia
# Severe b/l hydroureter/hydronephrosis
# right renal subcapsular hematoma vs seroma vs urinoma
# Atonic bladder with chronic valverde
- pt declined percutaneous nephrostomy.
Per IR left hydro somewhat improved with CBI, valverde decompression and perc neph unlikely to help with renal function.
- Completed 14d of abx through 05/10/24.
Chief Complaint
-: Other (Bowel perforation)
Subjective / Review of Systems
Patient seen and examined. Extubated since yesterday.
Vital Signs / Physical Exam
Vital Signs
Vital Signs
Temp Pulse Resp BP Pulse Ox
96.8 F L 76 20 124/53 97
05/14/24 07:31 05/14/24 07:36 05/14/24 07:36 05/14/24 07:36 05/14/24 07:55
Physical Exam
Constitutional: No Acute Distress and Acutely Ill
Head: Other ( NG tube in place.)
Eyes: Sclera Anicteric
Cardiovascular: Regular Rate and S1/S2; Negative S3/S4
Pulmonary: Clear
Gastrointestinal: Soft, Non Distended, Decreased Bowel Sounds and Other (MEREDITH drain serous fluid. )
Genito-Urinary: Valverde (minimal urine)
Extremities: Negative Edema
Skin: Negative Rash or Jaundice
Neurological: Awake and Alert
Psychological: Calm
Objective Data
Lab Data
Lab Results
05/14/24 04:22
05/14/24 04:22
PT 16.6 Sec (11.4-14.6) H 05/10/24 07:46
INR 1.29 05/10/24 07:46
APTT 35.0 Sec (23.4-35.0) 05/10/24 07:46
Estimated Creat Clear 12 ml/min 05/14/24 04:22
Lactic Acid 0.7 mmol/L (0.7-2.0) 04/28/24 12:05
Total Bilirubin 1.0 mg/dl (0.2-1.3) 05/13/24 04:53
AST 22 U/L (17-59) 05/13/24 04:53
ALT < 10 U/L (0-50) 05/13/24 04:53
Alkaline Phosphatase 395 U/L (38-126) H 05/13/24 04:53
Most recent labs reviewed.
Micro Results:
05/12/24 10:42 MRSA Screen - Final
Nose No Methicillin Resistant Staphylococcus aureus isolated.
05/11/24 10:20 Wound Culture - Preliminary
Abdomen Enterococcus species
Gram Stain - Preliminary
05/11/24 10:20 Anaerobic Culture - Preliminary
Fluid Culture pending. Anaerobic cultures are examined after 3
days incubation. Additional information to follow.
05/04/24 13:55 Urine Culture - Final
Urine NO GROWTH
04/29/24 09:09 Blood Culture - Final
Blood/Venous No Growth - Final Report
04/27/24 14:16 Blood Culture - Final
Blood/Venous No Growth - Final Report
04/26/24 15:46 Urine Culture - Final
Urine Klebsiella pneumoniae
04/26/24 19:21 Blood Culture - Final
Blood/Venous Klebsiella pneumoniae
Gram Stain - Final
04/26/24 15:02 Blood Culture - Final
Blood/Venous Klebsiella pneumoniae
Gram Stain - Final
04/27/24 Renal US: Bilateral hydronephrosis, moderate left and mild right.
05/04/24 CT a/p wo IV contrast: Severe bilateral hydroureter. No obstructing radiopaque stones are noted. Possible subcapsular right renal fluid collection. Limited evaluation without IV contrast. Renal masses and masses of the collecting system
and bladder cannot be excluded without IV contrast. Mild prostate hypertrophy.
05/07/24 CTa/p: 1. Negative for active gastrointestinal hemorrhage. As above, there is gastric and duodenal mucosal hyperenhancement, but no active bleeding is identified. Patient's known duodenal ulcer is not well seen at CT.
2. Persistent moderate left hydronephrosis and persistent bilateral hydroureter. As above, there is abnormal appearance of the right kidney with subcapsular collection which nearly completely surrounds the kidney. There are associated compressive
changes of the right kidney with diminished enhancement and misshapen cortex. There is mild prominence of the right renal collecting system, no marked hydronephrosis. Collection shows greater than simple fluid attenuation and could represent old
hematoma/seroma. Urinoma is also a diagnostic consideration. Presence or absence of superimposed infection cannot be determined by this examination. 3. Valverde catheter in position within decompressed urinary bladder. Diffuse marked urinary bladder
wall thickening related to either chronic outlet obstruction or neurogenic bladder.
05/09/24 CT a/p: Several loops of small bowel in the left abdomen with moderate circumferential wall thickening. Moderate abdominopelvic ascites. Progressed. Moderate bilateral pleural effusions.. Progressed bilaterally. Moderate left lower lobe
consolidation. Stable. Mild right lower lobe consolidation. Stable. Probably atelectasis. Moderate subcapsular right perinephric fluid collection. Differential diagnosis includes hematoma, seroma and less likely infection. Stable. Associated stable
compressive effects on the renal parenchyma. Addendum: Small bowel loops in the left hemiabdomen with wall thickening and a few small scattered foci of gas that appear to be centered within the small bowel wall raising concern for pneumatosis and
ischemic enteritis.
05/11/24 CXR: The endotracheal tube is in satisfactory position. There are moderate bilateral pleural effusions with associated compressive atelectasis at the retrocardiac left lung base
--- NOTE | 2024-05-14 11:43 | W.PN.NEPH.PH ---
Today's Communication / Plan
-
observe
HD tomorrow
Assessment/Plan
-
Assessment
Hypertension
ARISTEO
DKA
Metabolic acidosis
Lactic acidosis
Hyperkalemia
Hyponatremia
azotemia
Neurogenic bladder with bilat hydro
Coronary artery disease
E faecalis urosepsis
Plan:
ARISTEO is likely due to combination of neurogenic bladder in setting of severe DKA
IR did not favor PCN intervention for obstructive uropathy, only minimal UOP
s/p exp lap and primary repair duodenal bulb ulcer with omental pedicle flap on 05/11
increase drain out put-surg follows
now extubated 05/13
hb stable
abx per ID on Zosym
BP stable
mild hypocalcemia-corrected is normal, I yang in am
vit D low, PTH 103 appropriately high-add vit D2 when starts PO
remains NPO, ok for gentle IVF if needed
-
-
Date of Service: May 14, 2024
CC / HPI / ROS
-
Chief Complaint:
ARISTEO
History of Present Illness:
ARISTEO/Cr now on dialysis support
BP stable, extubated 05/13
Dx Lap; Exploratory laparotomy abdominal washout, primary repair duodenal bulb ulcer with omental pedicle flap 05/11
CT abd shows bilateral hydro and bladder distension 05/05
hb better 10 range
no significant UOP from valverde
no fever, increased out put MEREDITH drain
CXR 05/13 bilat pleural effusion
Review of Systems:
drowsy, offers no cp or sob
no abd pain
Labs
-
Labs:
WBC 13.0 10^3/uL (4.8-10.8) H 05/14/24 04:22
RBC 3.49 10^6/uL (4.70-6.10) L 05/14/24 04:22
Hgb 10.3 g/dL (13.0-18.0) L D 05/14/24 04:22
Hct 31.5 % (39.0-52.0) L 05/14/24 04:22
Plt Count 60 10^3/uL (130-400) L 05/14/24 04:22
Sodium 133 mmol/L (135-145) L 05/14/24 04:22
Potassium 4.5 mmol/L (3.5-5.1) 05/14/24 04:22
Chloride 99 mmol/L (98-107) 05/14/24 04:22
Carbon Dioxide 21 mmol/L (22-30) L 05/14/24 04:22
BUN 43 mg/dl (9-20) H 05/14/24 04:22
Creatinine 4.4 mg/dL (0.7-1.3) H* 05/14/24 04:22
eGFR 12.70 05/14/24 04:22
Glucose 135 mg/dl (70-99) H 05/14/24 04:22
Calcium 7.1 mg/dl (8.4-10.2) L 05/14/24 04:22
Phosphorus 3.8 mg/dl (2.5-4.5) 05/13/24 04:53
Albumin 2.1 g/dl (3.5-5.0) L 05/13/24 04:53
Physical Exam
-
Vital Signs:
Vital Signs
Temp Pulse Resp BP Pulse Ox
96.3 F L 75 16 124/53 98
05/14/24 11:16 05/14/24 11:00 05/14/24 11:00 05/14/24 07:36 05/14/24 11:00
Cardiovascular:: Regular rate and rhythm
Respiratory:: Bilateral: CTA (decreased anteriorly)
Lung Excursion:: Normal
Abdomen:: Nontender and Soft
Extremity Edema:: +1: Bilateral:
Valverde Catheter: Yes
--- NOTE | 2024-05-14 11:54 | W.PN.GS2 ---
Addendum entered and electronically signed by Neil White MD 05/14/24 12:09:
I saw and examined the patient.
The Specifications Checker's note was reviewed and I agree with the note.
Comment: Extubated and off pressors. Denies abd pain/n/v. No flatus yet. Exam approp. High volume serous (non-bilious) MEREDITH outputs, Nephrology following. Cont abx. Monitor for bowel function. May need TPN support if unable to adv diet in next 24-48
hrs.
Original Note:
Today's Communication / Plan
-
NGT/NPO
Assessment / Plan
-
Assessment: 83-year-old male who presented initially in DKA with ARISTEO and urosepsis. Still being followed by urology and nephrology and now HD dependent who was taken to the OR emergently for perforated viscous.
POD #3 diagnostic laparoscopy with perforated duodenal ulcer noted with diffuse peritonitis; 4 L of bilious ascites; procedure converted to open exploratory laparotomy for abdominal washout, primary repair duodenal bulb ulcer with omental pedicle
flap.
Afebrile, Stable vital signs
On RA s/p extubation on 05/13
Await bowel recovery
MEREDITH with high serous outputs, suspect secondary to third spacing of fluid which was seen on CT prior to surgery
Plan:
Continue NGT to LIWS
Continue strict NPO.
Will likely need UGI imaging prior to any PO intake (?wednesday)
Rosenthal as per urology
Continue IV abx
Continue PPI drip
Continue with MEREDITH drain
Local wound care
Analgesics as needed, on fentanyl gtt currently
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
Subjective Data
-
Date of Service: May 14, 2024
Patient seen and examined at bedside with Dr. White. Extubated and able to converse. Denies n/v. Notes he has not yet passed flatus.
Objective Data
-
Intake and Output
05/13/24 05/14/24 05/15/24
06:59 06:59 06:59
Intake Total 1902.8 / 1912.8 460 / 470 80 / 80
Output Total 255 / 255 1430 / 1430 410 / 410
Balance 1647.8 / 1657.8 -970 / -960 -330 / -330
Intake:
IV fluids (Total) 892.8 / 902.8 240 / 250 50 / 50
Levophed 496.3 / 496.3
Protonix 220 / 230 240 / 250 50 / 50
fent 158.5 / 158.5
vasopressin 18 / 18
IV piggybacks 660 / 660 100 / 100
Amount instilled into GI Tube ( 150 / 150 120 / 120 30 / 30
Total)
[place] Sump 150 / 150 120 / 120 30 / 30
Blood Products 200 / 200
Albumin 25% 200 / 200
Output:
Drain Output (Total) 180 / 180 930 / 930 310 / 310
Right Abdomen Alfie-Biswas 180 / 180 930 / 930 310 / 310
Gastrointestinal tube output ( 50 / 50 400 / 400
Total)
[place] Sump 50 / 50 400 / 400
Urine, Rosenthal 25 / 25 100 / 100 100 / 100
Urine, Voided 0 / 0
Vital Signs
Temp Pulse Resp BP Pulse Ox
96.3 F L 75 16 124/53 98
05/14/24 11:16 05/14/24 11:00 05/14/24 11:00 05/14/24 07:36 05/14/24 11:00
Lab Results
05/14/24 04:22
05/14/24 04:22
Calcium 7.1 mg/dl (8.4-10.2) L 05/14/24 04:22
Phosphorus 3.8 mg/dl (2.5-4.5) 05/13/24 04:53
Magnesium 2.4 mg/dl (1.6-2.3) H 05/14/24 04:22
Total Bilirubin 1.0 mg/dl (0.2-1.3) 12 04:53
AST 22 U/L (17-59) 05/13/24 04:53
ALT < 10 U/L (0-50) 05/13/24 04:53
Alkaline Phosphatase 395 U/L (38-126) H 05/13/24 04:53
Total Protein 4.3 g/dl (6.3-8.2) L 05/13/24 04:53
Albumin 2.1 g/dl (3.5-5.0) L 05/13/24 04:53
Physical Exam
-
NAD
ABD: ND, generalized tenderness. Midline incision with intact saad/elizabeth. NGT with minimal nonbloody gastric outputs. MEREDITH with high volume serous fluid outputs
[2024-05-14 12:14] LABS: Glucose - Point of Care 164 mg/dl (70-99)
[2024-05-14] MEDS: NOVOLOG FLEXPEN-HIGH RESISTANCE 2 UNITS SC ×3 (12:27→23:01)
--- NOTE | 2024-05-14 14:57 | PTCARENOTE ---
patient reassessed@1230 no changes. sleeping short periods. MEREDITH continues to drain large amount yellow drainage
[2024-05-14 17:37] LABS: Glucose - Point of Care 174 mg/dl (70-99)
--- NOTE | 2024-05-14 20:00 | PTCARENOTE ---
Received patient oriented to self and time, knew he was in the hospital but not [facility]. Forgetful, denies pain, follows commands. Aflutter, 80s, BP stable, +2 generalized anasarca. Weak pedal pulses b/l. 93% on room air, lung sounds
diminished throughout, crackles in the bases. Right nare [place] sump to LITWS, irrigated with tap water Q4. [address], oliguric. Abdominal dressing CDI. Right abdominal MEREDITH drain putting out serous fluid. Foams on heel, sacrum, and back
CDI. B/l midlines patent, WNL, protonix gtt ongoing. Son at bedside, updated. Repositioned, mouth care done, valverde care done.
[2024-05-14] MEDS: MELATONIN 5 MG TUBE (21:45)
[2024-05-14 23:11] LABS: Glucose - Point of Care 190 mg/dl (70-99)
[2024-05-15] VITALS (44 sets, daily range): BP systolic 76–135; BP diastolic 22–94; BMI 24.2
[2024-05-15] MEDS: DESYREL 12.5 MG TUBE
[2024-05-15] MEDS: ZOSYN 50 IV ×3 (05:00→19:23)
[2024-05-15] MEDS: NOVOLOG FLEXPEN-HIGH RESISTANCE 2 UNITS SC ×2 (05:16→18:28)
[2024-05-15 05:24] LABS: Glucose - Point of Care 193 mg/dl (70-99)
[2024-05-15 05:30] LABS: Ionized Calcium 1.01 mMOL/L (1.15-1.33)
[2024-05-15 05:39] LABS: Hemoglobin 10.1 g/dL (13.0-18.0); Mean Corp Hgb Conc. 33.7 g/dL (33.0-37.0); Mean Corpuscular Hgb 29.4 pg (27.0-31.0); Mean Corpuscular Volume 87.5 fL (80.0-94.0); Mean Platelet Volume 11.3 fL (7.4-10.4); Platelet Count 84 10^3/uL (130-400); Red Blood Cell Count 3.43 10^6/uL (4.70-6.10); Red Cell Dist. Width 15.6 % (11.5-14.5); White Blood Cell Count 15.1 10^3/uL (4.8-10.8)
[2024-05-15 05:46] LABS: Blood Urea Nitrogen 63 mg/dl (9-20); Calcium 7.1 mg/dl (8.4-10.2); Carbon Dioxide 15 mmol/L (22-30); Chloride 98 mmol/L (98-107); Glucose 208 mg/dl (70-99); Potassium 5.3 mmol/L (3.5-5.1); Sodium 132 mmol/L (135-145)
[2024-05-15 05:57] LABS: Vancomycin Random 13.7 ug/ml
[2024-05-15] MEDS: PROTONIX 100 IV (06:04)
[2024-05-15 06:10] LABS: Estimated Creatinine Clearance 10 ml/min; eGFR 10.39
[2024-05-15] MEDS: NSS (PRESERVATIVE FREE) IV (07:21)
--- NOTE | 2024-05-15 07:49 | W.PN.HOSP.TC ---
Addendum entered and electronically signed by Valdemar Ellis MD 05/15/24 15:45:
Seen and examined by me independently in collaboration with the clinical laboratory medical director.
Lab data and imaging data reviewed.
Addendum as below :
Patient is alert and oriented. Afebrile. Blood pressure stable. Oxygenating well after extubation.
NG tube still in place.
Hypoactive bowel sounds.
Hemoglobin stable. Creatinine 5.2 with metabolic acidosis and mild hyperkalemia. Hyponatremia noted.
Continue with NG suction per surgery and NPO. If no plans of oral nutrition in next day or two, will consider TPN .
Repeat EGD for tomorrow noted.
CW abx per ID for intraabdominal infection.
CW HD support per renal.
A-fib is rate controlled. Anticoagulation on hold due to GI bleeding issues.
Blood sugars are controlled with now sliding scale insulin. Not requiring any long-acting insulin.
Discussed with the . He has been telling her that he sees docs in the room. Seems to be hallucinating. No prior history of strokes but before coming to the hospital his mind was not as sharp. No obvious focal motor deficits were made today
but he did not speak much during the rounds. Suspect this is TME. Obtain a CT of the head without contrast to rule out any acute findings. He does not have A-fib and not on anticoagulation.
Total time spent on today's encounter was 52 minutes which included time spent in counseling the patient/family regarding diagnosis and treatment plan as listed above, goals of care, and symptom management. Case was discussed with nursing staff,
specialists, and care coordinators/case management. All labs and imaging personally reviewed by me. Remainder the time spent in detailed review of previous records, lab data, imaging, and other medical provider documentation.
Original Note:
Today's Communication/Plan
-
HD today
transfer to imu
ng an diet per surgery
cont abx
usg UE b/l
Assessment / Plan
Assessment / Plan
83-year-old male with known past medical history of essential hypertension currently on multiple drugs, insulin-dependent diabetes, neurogenic/atonic bladder with chronic Valverde catheter, coronary artery disease/[place] 3 years ago s/p cardiac stenting
and currently on prasugrel and CKD 3B presented with his due to confusion and lethargy for few days. Hb dropped after started on eliquis for new onset a fib.
#UGIB
#PUD
# Perforated duodenal ulcer with peritonitis
-unclear if it is related to eliquis use since he was on prasugrel before
-Status post 8 units of PRBC total this hospital stay
-Developed dark maroon stools after being started on Eliquis last week
-EGD showed nonbleeding peptic ulcer and a large duodenal ulcer with clot adherent
-per GI hold anticoagulants; cardio recommend to start single agent eliquis when ok by GI
-POD #4 Perforated duodenal bulb ulcer
-s/p Exploratory laparotomy abdominal washout,
-MEREDITH with serosanguineous drainage hemoglobin stable.
-Peritonitis;Zosyn(day 6). Continue PPI drip.
- NPO; extubated; off pressors; bp stable
-continue vanco for now ;mrsa negative, abdominal fluid culture final report pending
- abdominal fluid culture +enterococcus
#Sepsis due to CAUTI - POA
septic shock due to above
#Neurogenic bladder with chronic valverde catheter
-urine culture showed Klebsiella pneumonia
-appreciate urology recs-continue valverde
-Will need outpatient follow-up with urology
- hold finasteride, tamsulosin; continue with Valverde at discharge
- IR recommend to hold off on PCN for now
-cont zosyn; ID following
#New onset ESRD
#H/O CKD 3B
-Has been initiated on HD every M//F with nephrology here; HD today
-Had tunneled HD cath placed for long-term dialysis access; Right UE swelling, US no dvt
-Recent CT showed ongoing obstructive uropathy, now s/p Valverde catheter
-Trend daily BMP, continue with dialysis as scheduled
-Will need follow-up at discharge with nephrology and urology
#New onset Atrial fibrillation
-[id number] score 5, nonvalvular
-Was already on rate controlling agent with home carvedilol
-Was started on Eliquis here though currently on hold for UGIB as above
-cardio recommend to start single agent eliquis when ok by GI
#Type 2 DM
-Home medications include Lantus, NovoLog, Tresiba; previously on Farxiga
-Had severe hyperglycemia on arrival, suspected to be HHS, now improved
-Blood glucose currently stable on ssc insulin
#CAD s/p PCI
-Had PCI in 2021; Home meds include high intensity statin, beta-elsie, prasugrel
-Due to occurrence of new onset AF, prasugrel was transition to Eliquis
-Eliquis currently on hold due to GI bleeding as above
#Essential HTN
-Home medications include carvedilol, amlodipine
-No known history of hypertensive systemic diseases
#HLD
-hold statin
#Elevated LFTs
-Likely secondary to infection/sepsis, reduced perfusion
#Toxic metabolic encephalopathy
-Likely multifactorial with sepsis, possible HHS/severe hyperglycemia
Code status: DNR
DVT prophylaxis: SCDs
Anticipated Discharge: > 48 hours
Subjective/Interval History
-
Date of Service: May 15, 2024
no new complaints; feeling better
Objective Data
-
Labs:
Laboratory Results
05/15/24
05:13
WBC 15.1 H
Hgb 10.1 L
Hct 30.0 L
Plt Count 84 L D
Sodium 132 L
Potassium 5.3 H
Chloride 98
Carbon Dioxide 15 L
BUN 63 H
Creatinine 5.2 H*
Glucose 208 H
Calcium 7.1 L
Vital Signs:
Vital Signs
Temp Pulse Resp BP Pulse Ox
97.7 F 72 18 107/54 93
05/15/24 07:13 05/15/24 06:00 05/15/24 06:00 05/15/24 06:00 05/15/24 06:00
I&O
05/14/24 05/15/24 05/16/24
06:59 06:59 06:59
Intake Total 460 / 470 540 / 540
Output Total 1430 / 1430 945 / 945
Balance -970 / -960 -405 / -405
Review of Systems
-
History Source: Patient
Constitutional: Reports No Symptoms
Respiratory: Reports No Symptoms
Cardiac: Reports No Symptoms
Abdomen/GI: Reports No Symptoms
Genitourinary: Reports No Symptoms
Physical Exam
-
General: Comfortable, Appears Chronically Ill and Other (NG in place)
Respiratory: Non Labored Respirations; Negative Accessory Resp Muscle Use
Cardiac: Regular Rhythm and S1/S2; Negative Murmur, Rub or Gallop
GI: Soft and Other (dressing intact. Daren drain with ssg)
Skin: Warm and Dry; Negative Rash
Neuro: Awake, Alert and Oriented
Psych: Calm
Data Reviewed
-
Labs: Labs Reviewed by me, Discussed with Physician and Discussed with Patient
--- NOTE | 2024-05-15 08:05 | PN.DE.MGMTRT ---
Insulin Management
- -
05/15/2024: Diabetes Management F/U:
Patient brought to ED with change of mental status, found to be in DKA. PMH CAD, HTN, diabetes, CKD 3b, UTI 1 month ago. Prior to admission was taking Tresiba 10 units @ hs. A1C on 03/22/24 was 8.5%--> A1C 9.6% this admission. Cr 6.3, eGFR
8.7-->5.3, eGFR 10.16
Glucose Patient was managed on insulin infusion and transitioned off on 04/28 to SQ Insulin.
05/10 Noted for Perforated duodenal ulcer with peritonitis.
Patient extubated, resting in bed with eyes closed on HD.
POD #3 diagnostic lap with perforated duodenal ulcer noted with diffuse peritonitis; 4 L of bilious ascites; procedure converted to open exp lap for abdominal washout, primary repair duodenal bulb ulcer with omental pedicle flap.
Strict NPO, awaiting bowel recovery. NGT in place
All standing insulin orders placed on hold 05/10 while NPO.
Glucose stable, 164 to 174, fasting 193 this AM. Cont high corrective insulin only while NPO
Will follow closely and provide diabetes mgt support as necessary.
Diabetes History
- -
Type of Diabetes: 2 requiring insulin
Pre-Admission Diabetes Regimen
05/15/24
05:13
Creatinine 5.2 H*
Lab Results
Hemoglobin A1c 9.6 % (4.0-5.6) H 04/27/24 06:06
Insulin Pump Settings
IP Diabetes Regimen
05/14/24 05/14/24 05/14/24
12:03 17:26 23:01
Glucose
POC Glucose 164 H 174 H 190 H
05/15/24 05/15/24
05:12 05:13
Glucose 208 H
POC Glucose 193 H
Patient Education
--- NOTE | 2024-05-15 08:24 | W.PN.NEPH.HD ---
Assessment
-
Patient seen on dialysis
Systolic blood pressure stable with current UF
NG tube in place
Bicarb bath adjusted up to 40
Progress Note - Hemodialysis
-
Date of Service: May 15, 2024
Duration: 30 minutes and 3 hours
Potassium Bath: 2
Calcium Bath: 3
Opti-Dialyzer: 160
Ultrafiltration: Other (2.5 kg as hemodynamically tolerate)
Blood Flow: 400
Dialysate Flow: 600
Heparin: None (thrombocytopenia HIT panel pending)
EPO: 4000
[2024-05-15] MEDS: RETACRIT 4000 UNITS IV (08:32)
[2024-05-15] MEDS: MANNITOL 25% 12.5 GRAMS IV ×2 (08:32→10:17)
[2024-05-15] MEDS: FLEXBUMIN 25% FOR HEMODIALYSIS 12.5 GRAMS IV ×2 (08:33→10:17)
--- NOTE | 2024-05-15 11:12 | W.PN.ID1 ---
Date of Service
Date of Service: May 15, 2024
Today's Communication
Continue Zosyn
Assessment / Plan
# Perforated duodenal ulcer with peritonitis
- 05/12/24 s/p abd washout, repair of duodenal ulcer
- OR gram stain: GPC in pairs; cx Enterococcus species
- Continue Zosyn (d#6)
-DC Vancomycin
# s/p Septic shock due to above
# Leukocytosis trending up.
- Continue to monitor.
# s/p recent UGI bleed
# s/p Blood loss anemia
- s/p EGD: large duodenal ulcer with clots
# ARISTEO on CKD now HD dependent
# s/p Klebsiella complicated UTI with bacteremia
# Severe b/l hydroureter/hydronephrosis
# right renal subcapsular hematoma vs seroma vs urinoma
# Atonic bladder with chronic valverde
- pt declined percutaneous nephrostomy.
Per IR left hydro somewhat improved with CBI, valverde decompression and perc neph unlikely to help with renal function.
- Completed 14d of abx through 05/10/24.
Chief Complaint
-: Other (Bowel perforation)
Vital Signs / Physical Exam
Vital Signs
Vital Signs
Temp Pulse Resp BP Pulse Ox
97.6 F 101 22 93/78 90
05/15/24 08:00 05/15/24 08:45 05/15/24 08:45 05/15/24 08:45 05/15/24 08:45
Physical Exam
Constitutional: Comfortable
Cardiovascular: Regular Rate and S1/S2
Pulmonary: Clear (anteriorly)
Gastrointestinal: Soft, Non Tender and Non Distended
Genito-Urinary: Valverde
Extremities: Negative Edema
Objective Data
Lab Data
Lab Results
05/15/24 05:13
05/15/24 05:13
PT 16.6 Sec (11.4-14.6) H 05/10/24 07:46
INR 1.29 05/10/24 07:46
APTT 35.0 Sec (23.4-35.0) 05/10/24 07:46
Estimated Creat Clear 10 ml/min 05/15/24 05:13
Lactic Acid 0.7 mmol/L (0.7-2.0) 04/28/24 12:05
Total Bilirubin 1.0 mg/dl (0.2-1.3) 05/13/24 04:53
AST 22 U/L (17-59) 05/13/24 04:53
ALT < 10 U/L (0-50) 05/13/24 04:53
Alkaline Phosphatase 395 U/L (38-126) H 05/13/24 04:53
Most recent labs reviewed.
Micro Results:
05/11/24 10:20 Anaerobic Culture - Preliminary
Fluid Culture pending. Anaerobic cultures are examined after 3
days incubation. Additional information to follow.
05/11/24 10:20 Wound Culture - Preliminary
Abdomen Enterococcus species
Gram Stain - Preliminary
05/12/24 10:42 MRSA Screen - Final
Nose No Methicillin Resistant Staphylococcus aureus isolated.
05/04/24 13:55 Urine Culture - Final
Urine NO GROWTH
04/29/24 09:09 Blood Culture - Final
Blood/Venous No Growth - Final Report
04/27/24 14:16 Blood Culture - Final
Blood/Venous No Growth - Final Report
04/26/24 15:46 Urine Culture - Final
Urine Klebsiella pneumoniae
04/26/24 19:21 Blood Culture - Final
Blood/Venous Klebsiella pneumoniae
Gram Stain - Final
04/26/24 15:02 Blood Culture - Final
Blood/Venous Klebsiella pneumoniae
Gram Stain - Final
04/27/24 Renal US: Bilateral hydronephrosis, moderate left and mild right.
05/04/24 CT a/p wo IV contrast: Severe bilateral hydroureter. No obstructing radiopaque stones are noted. Possible subcapsular right renal fluid collection. Limited evaluation without IV contrast. Renal masses and masses of the collecting system
and bladder cannot be excluded without IV contrast. Mild prostate hypertrophy.
05/07/24 CTa/p: 1. Negative for active gastrointestinal hemorrhage. As above, there is gastric and duodenal mucosal hyperenhancement, but no active bleeding is identified. Patient's known duodenal ulcer is not well seen at CT.
2. Persistent moderate left hydronephrosis and persistent bilateral hydroureter. As above, there is abnormal appearance of the right kidney with subcapsular collection which nearly completely surrounds the kidney. There are associated compressive
changes of the right kidney with diminished enhancement and misshapen cortex. There is mild prominence of the right renal collecting system, no marked hydronephrosis. Collection shows greater than simple fluid attenuation and could represent old
hematoma/seroma. Urinoma is also a diagnostic consideration. Presence or absence of superimposed infection cannot be determined by this examination. 3. Valverde catheter in position within decompressed urinary bladder. Diffuse marked urinary bladder
wall thickening related to either chronic outlet obstruction or neurogenic bladder.
05/09/24 CT a/p: Several loops of small bowel in the left abdomen with moderate circumferential wall thickening. Moderate abdominopelvic ascites. Progressed. Moderate bilateral pleural effusions.. Progressed bilaterally. Moderate left lower lobe
consolidation. Stable. Mild right lower lobe consolidation. Stable. Probably atelectasis. Moderate subcapsular right perinephric fluid collection. Differential diagnosis includes hematoma, seroma and less likely infection. Stable. Associated stable
compressive effects on the renal parenchyma. Addendum: Small bowel loops in the left hemiabdomen with wall thickening and a few small scattered foci of gas that appear to be centered within the small bowel wall raising concern for pneumatosis and
ischemic enteritis.
05/11/24 CXR: The endotracheal tube is in satisfactory position. There are moderate bilateral pleural effusions with associated compressive atelectasis at the retrocardiac left lung base
--- NOTE | 2024-05-15 11:20 | W.PN.GS2 ---
Today's Communication / Plan
-
Will plan for upper GI tomorrow
Assessment / Plan
-
Assessment: 83-year-old male who presented initially in DKA with ARISTEO and urosepsis. Still being followed by urology and nephrology and now HD dependent who was taken to the OR emergently for perforated viscous.
POD #4 diagnostic laparoscopy with perforated duodenal ulcer noted with diffuse peritonitis; 4 L of bilious ascites; procedure converted to open exploratory laparotomy for abdominal washout, primary repair duodenal bulb ulcer with omental pedicle
flap.
Afebrile, Stable vital signs
On RA s/p extubation on 05/13
Await bowel recovery
MEREDITH with high serous outputs, suspect secondary to third spacing of fluid which was seen on CT prior to surgery
Plan:
Continue NGT to LIWS
Continue strict NPO.
Will plan for an upper GI tomorrow
Rosenthal as per urology
Continue IV abx
Continue PPI drip
Continue with MEREDITH drain
Local wound care
Analgesics as needed, on fentanyl gtt currently
Medical management as per primary team/alliance consultant
Time Spent
Total Time Spent with Patient (in minutes): 25
Subjective Data
-
Date of Service: May 15, 2024
Interval Events:
No acute events overnight. Slept well. Pain Controlled. Denies Nausea/Vomiting, +bowel function.
Objective Data
-
Intake and Output
05/14/24 05/15/24 05/16/24
06:59 06:59 06:59
Intake Total 460 / 470 540 / 540
Output Total 1430 / 1430 945 / 945 5 / 5
Balance -970 / -960 -405 / -405 -5 / -5
Intake:
IV fluids (Total) 240 / 250 220 / 220
Protonix 240 / 250 220 / 220
IV piggybacks 100 / 100 50 / 50
Amount instilled into GI Tube ( 120 / 120 270 / 270
Total)
[place] Sump 120 / 120 270 / 270
Output:
Drain Output (Total) 930 / 930 730 / 730
Right Abdomen Alfie-Biswas 930 / 930 730 / 730
Gastrointestinal tube output ( 400 / 400 90 / 90
Total)
[place] Sump 400 / 400 90 / 90
Urine, Rosenthal 100 / 100 125 / 125 5 / 5
Vital Signs
Temp Pulse Resp BP Pulse Ox
97.6 F 101 22 93/78 90
05/15/24 08:00 05/15/24 08:45 05/15/24 08:45 05/15/24 08:45 05/15/24 08:45
Lab Results
05/15/24 05:13
05/15/24 05:13
Calcium 7.1 mg/dl (8.4-10.2) L 05/15/24 05:13
Phosphorus 3.8 mg/dl (2.5-4.5) 05/13/24 04:53
Magnesium 2.4 mg/dl (1.6-2.3) H 05/14/24 04:22
Total Bilirubin 1.0 mg/dl (0.2-1.3) 05/13/24 04:53
AST 22 U/L (17-59) 05/13/24 04:53
ALT < 10 U/L (0-50) 05/13/24 04:53
Alkaline Phosphatase 395 U/L (38-126) H 05/13/24 04:53
Total Protein 4.3 g/dl (6.3-8.2) L 05/13/24 04:53
Albumin 2.1 g/dl (3.5-5.0) L 05/13/24 04:53
Physical Exam
-
GENERAL/NEURO: Awake, Alert, no distress
CHEST: Unlabored breathing on RA
ABDOMEN: Soft, Non-Tender, mildly distended, MEREDITH serous output. NG tube with minimal bilious output.
[2024-05-15] MEDS: NOVOLOG FLEXPEN-HIGH RESISTANCE 1 UNITS SC (12:34)
[2024-05-15 12:43] LABS: Glucose - Point of Care 130 mg/dl (70-99)
--- NOTE | 2024-05-15 14:40 | CM ---
CM following re: discharger planning.
Reviewed pt's chart, met with pt and pt's spouse at bedside. .
PT and OT continue recommending SNF level of care and both pt and his spouse preferred [facility]. Pt's spouse stated that she and her son did a research and they preferred [facility] instead of [facility] even [facility]
just 5 minutes from her house. Pt's spouse stated that she is not sure whether or not pt will be able to return back e after the completion of a short term rehab and it is a possibility that pt might be transitioned to a LTC. Per spouse, a chair
time at [facility] on [facility] needs tp be secured in case pt returns back home.
CM spoke to [facility] liaison and she confirmed that all admissions paperwork submitted and pt is accepted for admission to [facility] for a short term rehab and HD onsite when pt is medically stable.
NADER received a phone call from [facility] corporate legal secretary Nova [phone] x [phone] and she tried to confirm when pt will be discharged to [facility]. Update on discharge destination provided. Per Nova a referral for outpatient HD
treatment at [facility] was not made. NADER made a referral to [facility] outpatient HD treatment center on [facility].
D/C plan: [facility] for a short term rehab and HD treatment onsite for a short term rehab and possible for a LTC.
CM will follow to assist pt with discharge to [facility] for a short term rehab and HD treatment onsite.
--- NOTE | 2024-05-15 17:41 | PTCARENOTE ---
Pt received start of shift, HR appears to be a-flutter w/ 2:1 conduction on monitor. Doppler DP pulses. Pt appears slightly withdrawn, flat responses. Pt AAOx1-2, confused to either place or time. Chronic valverde with minimal output. R nare NG tube at
78, green drainage in canister. HD completed. R abd MEREDITH draining moderate serous fluid. Abdominal dressing changed.
--- NOTE | 2024-05-15 17:46 | W.PN.URO.CBU ---
Today's Communication / Plan
-
no gu changes for now
Assessment / Plan
-
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
Klebsiella urosepsis and bacteremia
Significant pyuria secondary to cUTI - resolved
Malpositioned catheter w/ suboptimal drainage - resolved
Bilateral hydroureteronephrosis
Right subcapsular fluid collection
s/p ex lap and bowel resection/repair
pt now dialysis dependent
cath flushes easily with no hematuria or evid of debris/obstruction
continue valverde for now as clinical status clarifies
will follow
Diagnosis
-
Date of Service: May 15, 2024
-
Patient Diagnosis:
Post Op Day:
Patient Diagnosis:
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
Klebsiella urosepsis/bacteremia
Significant pyuria secondary to cUTI
Bilateral hydroureteronephrosis is now resolved as valverde draining free of debris
s/p ex lap- repair of bowel perf
Subjective
-
healing fron recent hospital surgery urine clear
Objective
-
Vital Signs
Temp Pulse Resp BP Pulse Ox
97.8 F 79 22 91/55 94
05/15/24 14:43 05/15/24 16:00 05/15/24 16:00 05/15/24 16:00 05/15/24 16:00
Intake and Output
05/14/24 05/15/24 05/16/24
06:59 06:59 06:59
Intake Total 460 / 470 540 / 540 70 / 70
Output Total 1430 / 1430 945 / 945 325 / 325
Balance -970 / -960 -405 / -405 -255 / -255
Intake:
IV fluids (Total) 240 / 250 220 / 220 70 / 70
Protonix 240 / 250 220 / 220 70 / 70
IV piggybacks 100 / 100 50 / 50
Amount instilled into GI Tube ( 120 / 120 270 / 270
Total)
Golden Sump 120 / 120 270 / 270
Output:
Drain Output (Total) 930 / 930 730 / 730 320 / 320
Right Abdomen Alfie-Biswas 930 / 930 730 / 730 320 / 320
Gastrointestinal tube output ( 400 / 400 90 / 90
Total)
Golden Sump 400 / 400 90 / 90
Urine, Valverde 100 / 100 125 / 125 5 / 5
Laboratory Results
05/15/24 05:13
05/15/24 05:13
Review of Systems
-
: Difficulty Voiding
Physical Exam
-
General - well developed, well nourished, no acute distress
Chest - clear bilaterally
Abdomen - soft, non-tender, positive bowel sounds, no CVAT, no incisional pain or distention
Genitalia - normal
Rectal - normal
Skin - warm & dry with no rash
Neuro - AOx3, no motor deficits
Extremities - no clubbing, no cyanosis, no edema
Incision - clean, dry
Dressing - clean, dry, intact
Care Review
Data Reviewed
Discussed with: Family ()
CT Scan: Image Pers Reviewed
[2024-05-15 18:38] LABS: Glucose - Point of Care 185 mg/dl (70-99)
[2024-05-15] MEDS: NSS (PRESERVATIVE FREE) 10 ML IV (19:22)
[2024-05-15] MEDS: PROTONIX IV 40 MG IV (19:22)
--- NOTE | 2024-05-15 20:33 | PTCARENOTE ---
assumed care of pt, resting awakes to verbal, disoriented to time and very agitated that he was being questioned, CALI and denies pain, aflutter on the monitor, +3 UE with B/L weeping right worse than left, +2 LE B/L scds, + radial doppler pedals, RA
SpO2 95% diminished and coarse throughout, weak non-productive cough, absent BS distend round soft, NGT 78cm R nare greenish output, R MEREDITH serous output dressing dry and intact, Abd dressing dry and intact, 3 way valverde oliguric, sacral foam, R
midline IV team called for dc order, L midline, family @ bedside and updated, call shaffer within reach, otherwise refer to documentation.
--- NOTE | 2024-05-15 21:11 | VATNOTE ---
05/15 Provider ordered to remove right 4fr midline d/t thrombus on the catheter- removed without any issues. Report findings show the left midline at this time is not compromised.
[2024-05-15] MEDS: MELATONIN 5 MG TUBE (21:49)
[2024-05-15] MEDS: NOVOLOG FLEXPEN-HIGH RESISTANCE 4 UNITS SC (23:21)
[2024-05-15 23:31] LABS: Glucose - Point of Care 210 mg/dl (70-99)
[2024-05-15] MEDS: DILAUDID 0.25 MG IV (23:49)
[2024-05-16] VITALS (23 sets, daily range): BP systolic 98–126; BP diastolic 38–70; PULSE 80–83; O2SAT 94–95; BMI 23.4
[2024-05-16] MEDS: ZOSYN 50 IV ×3 (03:42→19:51)
[2024-05-16 03:54] LABS: Hematocrit 29.4 % (39.0-52.0); Hemoglobin 9.8 g/dL (13.0-18.0); Mean Corp Hgb Conc. 33.3 g/dL (33.0-37.0); Mean Corpuscular Hgb 29.6 pg (27.0-31.0); Mean Corpuscular Volume 88.8 fL (80.0-94.0); Mean Platelet Volume 11.7 fL (7.4-10.4); Platelet Count 100 10^3/uL (130-400); Red Blood Cell Count 3.31 10^6/uL (4.70-6.10); Red Cell Dist. Width 15.7 % (11.5-14.5); White Blood Cell Count 11.8 10^3/uL (4.8-10.8)
[2024-05-16 05:02] LABS: Blood Urea Nitrogen 43 mg/dl (9-20); Calcium 7.4 mg/dl (8.4-10.2); Carbon Dioxide 25 mmol/L (22-30); Chloride 95 mmol/L (98-107); Estimated Creatinine Clearance 14 ml/min; Glucose 155 mg/dl (70-99); Magnesium 2.4 mg/dl (1.6-2.3); Potassium 3.9 mmol/L (3.5-5.1); Sodium 134 mmol/L (135-145); eGFR 16.16
[2024-05-16] MEDS: NOVOLOG FLEXPEN-HIGH RESISTANCE 2 UNITS SC (05:44)
[2024-05-16 05:54] LABS: Glucose - Point of Care 172 mg/dl (70-99)
--- NOTE | 2024-05-16 07:12 | W.PN.HOSP.TC ---
Addendum entered and electronically signed by Valdemar Ellis MD 05/16/24 15:06:
seen and examined by me independently in collaboration with the medical record clerk.
Lab data and imaging data reviewed.
Addendum as below :
Patient more alert and interactive today. He is alert and oriented to place person month and year.
NG tube is out. Afebrile. Hemodynamically stable. Oxygenating well on room air.
Denies any abdominal pain. Abdomen soft with bowel sounds present.
Start on clears per GI.
HH stable .CW PPI.
Continue with antibiotics-consider switching to vancomycin from Zosyn as Enterococcus fecium is resistant to ampicillin. ID following.
Seems to be better cognitively-improving encephalopathy. CT of the head shows no acute intracranial findings.
Tolerating HD . Renal following.
Original Note:
Today's Communication/Plan
-
clear liquids
continue abx; changed to vanco
Assessment / Plan
Assessment / Plan
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
and currently on prasugrel and CKD 3B presented with his due to confusion and lethargy for few days. Hb dropped after started on eliquis for new onset a fib.
#UGIB
#PUD
# Perforated duodenal ulcer with peritonitis
-unclear if it is related to eliquis use since he was on prasugrel before
-Status post 8 units of PRBC total this hospital stay
-Developed dark maroon stools after being started on Eliquis last week
-EGD showed nonbleeding peptic ulcer and a large duodenal ulcer with clot adherent
-per GI hold anticoagulants; cardio recommend to start single agent eliquis when ok by GI
-POD #5 Perforated duodenal bulb ulcer
-s/p Exploratory laparotomy abdominal washout,
-MEREDITH with serosanguineous drainage hemoglobin stable.
-Peritonitis; Continue PPI IV
- NPO; extubated; off pressors; bp stable
-NGT removed today; started on clear liquids
-continue/restart vanco for now, d/c zosyn
- abdominal fluid culture +enterococcus faecium
#Sepsis due to CAUTI - POA
septic shock due to above
#Neurogenic bladder with chronic valverde catheter
-urine culture showed Klebsiella pneumonia
-appreciate urology recs-continue valverde
-Will need outpatient follow-up with urology
- hold finasteride, tamsulosin; continue with Valverde at discharge
- IR recommend to hold off on PCN for now
-cont abx; ID following
#DVT Right UE
-d/c picc line on RIght UE
- no on anti-coag due to recent surgery and GIB
#New onset ESRD
#H/O CKD 3B
-Has been initiated on HD every M/W/ with nephrology here; HD tomorrow
-Had tunneled HD cath placed for long-term dialysis access; Right UE swelling, US no dvt
-Recent CT showed ongoing obstructive uropathy, now s/p Valverde catheter
-Trend daily BMP, continue with dialysis as scheduled
-Will need follow-up at discharge with nephrology and urology
#New onset Atrial fibrillation
-Was already on rate controlling agent with home carvedilol
-Was started on Eliquis here though currently on hold for UGIB as above
-cardio recommend to start single agent eliquis when ok by GI
#Type 2 DM
-Home medications include Lantus, NovoLog, Tresiba; previously on Farxiga
-Had severe hyperglycemia on arrival, suspected to be HHS, now improved
-Blood glucose currently stable on ssc insulin
#CAD s/p PCI
-Had PCI in 2021; Home meds include high intensity statin, beta-elsie, prasugrel
-Due to occurrence of new onset AF, prasugrel was transition to Eliquis
-Eliquis currently on hold due to GI bleeding as above
#Essential HTN
-Home medications include carvedilol, amlodipine
-No known history of hypertensive systemic diseases
#HLD
-hold statin
#Elevated LFTs
-Likely secondary to infection/sepsis, reduced perfusion
#Toxic metabolic encephalopathy
-Likely multifactorial with sepsis, possible HHS/severe hyperglycemia
Code status: DNR
DVT prophylaxis: SCDs
Anticipated Discharge: > 48 hours
Subjective/Interval History
-
Date of Service: May 16, 2024
no new complaints
Objective Data
-
Labs:
Laboratory Results
05/16/24
03:46
WBC 11.8 H
Hgb 9.8 L
Hct 29.4 L
Plt Count 100 L
Sodium 134 L
Potassium 3.9 D
Chloride 95 L
Carbon Dioxide 25
BUN 43 H
Creatinine 3.6 H
Glucose 155 H
Calcium 7.4 L
Vital Signs:
Vital Signs
Temp Pulse Resp BP Pulse Ox
97.9 F 80 17 104/44 98
05/16/24 04:04 05/16/24 06:00 05/16/24 06:00 05/16/24 06:00 05/16/24 06:00
I&O
05/15/24 05/16/24 05/17/24
06:59 06:59 06:59
Intake Total 540 / 540 260 / 260
Output Total 945 / 945 540 / 540
Balance -405 / -405 -280 / -280
Review of Systems
-
History Source: Patient
Constitutional: Reports No Symptoms
Respiratory: Reports No Symptoms
Cardiac: Reports No Symptoms
Abdomen/GI: Reports No Symptoms
Genitourinary: Reports No Symptoms
Physical Exam
-
General: Comfortable and Appears Chronically Ill
Respiratory: Non Labored Respirations; Negative Accessory Resp Muscle Use
Cardiac: Regular Rhythm and S1/S2; Negative Murmur, Rub or Gallop
GI: Soft and Other (dressing intact. Daren drain with ssg)
Musculoskeletal: Edema, Left Upper Extrem
Skin: Warm and Dry; Negative Rash
Neuro: Awake, Alert and Oriented
Psych: Calm
Data Reviewed
-
CT Scan: Report Reviewed by me
Ultrasound: Report Reviewed by me
Labs: Labs Reviewed by me, Discussed with Physician and Discussed with Patient
--- NOTE | 2024-05-16 07:15 | W.PN.GS2 ---
Today's Communication / Plan
-
`
Assessment / Plan
-
Assessment: 83-year-old male who presented initially in DKA with ARISTEO and urosepsis.
POD #5 exploratory laparotomy, primary repair duodenal bulb ulcer with omental pedicle flap.
AFVSS
doing well post op
NGT removed today
MEREDITH with clear outputs
Plan:
NGT removed
okay to start on clear liquid diet but hold PO meds for now
protonix BID x 1 month post op
only need to empty MEREDITH every 8hrs
Rosenthal as per urology
Continue IV abx
Subjective Data
-
Date of Service: May 16, 2024
pt seen and examined
denies abd pain
states passing a lot of gas
Objective Data
-
Intake and Output
05/15/24 05/16/24 05/17/24
06:59 06:59 06:59
Intake Total 540 / 540 260 / 260
Output Total 945 / 945 540 / 540
Balance -405 / -405 -280 / -280
Intake:
IV fluids (Total) 220 / 220 70 / 70
Protonix 220 / 220 70 / 70
IV piggybacks 50 / 50 100 / 100
Amount instilled into GI Tube ( 270 / 270 90 / 90
Total)
[place] Sump 270 / 270 90 / 90
Output:
Drain Output (Total) 730 / 730 510 / 510
Right Abdomen Alfie-Biswas 730 / 730 510 / 510
Gastrointestinal tube output ( 90 / 90
Total)
[place] Sump 90 / 90
Urine, Rosenthal 125 / 125 30 / 30
Vital Signs
Temp Pulse Resp BP Pulse Ox
97.9 F 80 17 104/44 98
05/16/24 04:04 05/16/24 06:00 05/16/24 06:00 05/16/24 06:00 05/16/24 06:00
Lab Results
05/16/24 03:46
05/16/24 03:46
Calcium 7.4 mg/dl (8.4-10.2) L 05/16/24 03:46
Phosphorus 3.8 mg/dl (2.5-4.5) 05/13/24 04:53
Magnesium 2.4 mg/dl (1.6-2.3) H 05/16/24 03:46
Total Bilirubin 1.0 mg/dl (0.2-1.3) 05/13/24 04:53
AST 22 U/L (17-59) 05/13/24 04:53
ALT < 10 U/L (0-50) 05/13/24 04:53
Alkaline Phosphatase 395 U/L (38-126) H 05/13/24 04:53
Total Protein 4.3 g/dl (6.3-8.2) L 05/13/24 04:53
Albumin 2.1 g/dl (3.5-5.0) L 05/13/24 04:53
Physical Exam
-
NAD AAO
ABD: soft, ND, NTTP
midline incision with saad and few open areas - clean, no significant drainage
MEREDITH with clear straw colored output - non bilious
NGT with minimal bilious output
[2024-05-16] MEDS: PROTONIX IV 40 MG IV ×2 (07:56→19:55)
[2024-05-16] MEDS: NSS (PRESERVATIVE FREE) 10 ML IV ×2 (07:56→19:51)
--- NOTE | 2024-05-16 08:32 | PN.DE.MGMTRT ---
Insulin Management
- -
05/16/2024: Diabetes Management Follow up:
Patient brought to ED with change of mental status, found to be in DKA. PMH CAD, HTN, diabetes, CKD 3b, UTI 1 month ago. Prior to admission was taking Tresiba 10 units @ hs. A1C on 03/22/24 was 8.5%--> A1C 9.6% this admission. Cr 6.3, eGFR
8.7-->5.3, eGFR 10.16
Patient was managed on insulin infusion and transitioned off on 04/28 to SQ Insulin.
05/10 Noted for Perforated duodenal ulcer with peritonitis.
Patient extubated, resting in bed with eyes closed on HD.
POD #4 diagnostic lap with perforated duodenal ulcer noted with diffuse peritonitis; 4 L of bilious ascites; procedure converted to open exp lap for abdominal washout, primary repair duodenal bulb ulcer with omental pedicle flap.
Strict NPO, awaiting bowel recovery. NGT in place
05/15 Glucose trended up to 210.
05/16 Fasting glucose 172 this AM and 234 @ 12 noon. Will restart lantus 10 units daily in AM, with high corrective insulin.
Will follow for further needed adjustments.
Discussed with patients nurse.
Diabetes History
- -
Type of Diabetes: 2 requiring insulin
Pre-Admission Diabetes Regimen
05/16/24
03:46
Creatinine 3.6 H
Lab Results
Hemoglobin A1c 9.6 % (4.0-5.6) H 04/27/24 06:06
Insulin Pump Settings
IP Diabetes Regimen
05/15/24 05/15/24 05/15/24
12:31 18:26 23:19
Glucose
POC Glucose 130 H 185 H 210 H
05/16/24 05/16/24
03:46 05:43
Glucose 155 H
POC Glucose 172 H
Patient Education
--- NOTE | 2024-05-16 08:55 | W.PN.NEPH.PH ---
Today's Communication / Plan
-
Dialysis tomorrow
Assessment/Plan
-
Assessment
Hypertension
ARISTEO
DKA
Metabolic acidosis
Lactic acidosis
Hyperkalemia
Hyponatremia
azotemia
Neurogenic bladder with bilat hydro
Coronary artery disease
E faecalis urosepsis
Plan:
ARISTEO is likely due to combination of neurogenic bladder in setting of severe DKA now on HD support likely with ESRD
IR did not favor PCN intervention for obstructive uropathy, only minimal UOP
s/p exp lap and primary repair duodenal bulb ulcer with omental pedicle flap on 05/11
for HD tomorrow
hgb ~ stable
abx per ID on Zosym
BP stable
mild hypocalcemia-continue 3 Calcium bath on HD
vit D low, PTH 103 appropriately high-add vit D2 when starts PO
NG tube removed to be started on clear liquids but holding p.o. meds
-
-
Date of Service: May 16, 2024
CC / HPI / ROS
-
Chief Complaint:
ARISTEO
History of Present Illness:
ARISTEO/Cr now on dialysis support
BP stable, extubated 05/13
Dx Lap; Exploratory laparotomy abdominal washout, primary repair duodenal bulb ulcer with omental pedicle flap 05/11
CT abd shows bilateral hydro and bladder distension 05/05
hgb better 10 range
no significant UOP from valverde
no fever, increased out put MEREDITH drain
Currently in a flutter
Review of Systems:
More arousable
Liquid diet initiated
no fevers
no abd pain
Labs
-
Labs:
WBC 11.8 10^3/uL (4.8-10.8) H 05/16/24 03:46
RBC 3.31 10^6/uL (4.70-6.10) L 05/16/24 03:46
Hgb 9.8 g/dL (13.0-18.0) L 05/16/24 03:46
Hct 29.4 % (39.0-52.0) L 05/16/24 03:46
Plt Count 100 10^3/uL (130-400) L 05/16/24 03:46
Sodium 134 mmol/L (135-145) L 05/16/24 03:46
Potassium 3.9 mmol/L (3.5-5.1) D 05/16/24 03:46
Chloride 95 mmol/L (98-107) L 05/16/24 03:46
Carbon Dioxide 25 mmol/L (22-30) 05/16/24 03:46
BUN 43 mg/dl (9-20) H 05/16/24 03:46
Creatinine 3.6 mg/dL (0.7-1.3) H 05/16/24 03:46
eGFR 16.16 05/16/24 03:46
Glucose 155 mg/dl (70-99) H 05/16/24 03:46
Calcium 7.4 mg/dl (8.4-10.2) L 05/16/24 03:46
Phosphorus 3.8 mg/dl (2.5-4.5) 05/13/24 04:53
Albumin 2.1 g/dl (3.5-5.0) L 05/13/24 04:53
Physical Exam
-
Vital Signs:
Vital Signs
Temp Pulse Resp BP Pulse Ox
97.5 F 66 17 104/54 95
05/16/24 07:55 05/16/24 08:00 05/16/24 08:00 05/16/24 08:00 05/16/24 08:00
Cardiovascular:: Irregular rate and rhythm
Respiratory:: Bilateral: CTA (decreased anteriorly)
Lung Excursion:: Normal
Abdomen:: Nontender and Soft
Bowel Sounds:: Decreased
Extremity Edema:: +1: Bilateral:
Valverde Catheter: Yes
--- NOTE | 2024-05-16 09:12 | PTCARENOTE ---
Pt confused. Attempted to feed pt clear liquid breakfast. Pt refusing. Only drank about 50ml apple juice.
--- NOTE | 2024-05-16 10:23 | W.PN.ID1 ---
Date of Service
Date of Service: May 16, 2024
Today's Communication
Last day of Zosyn.
Resume IV Vancomycin (d5)
Assessment / Plan
# Perforated duodenal ulcer with peritonitis
- 05/12/24 s/p abd washout, repair of duodenal ulcer
- OR gram stain: GPC in pairs; cx Enterococcus faecium, resistant to ampicillin, sensitive to Vancomycin
- Continue Zosyn (d#7 of 7)
- Resume Vancomycin IV (d5) for E. faecium
# s/p Septic shock due to above
# Leukocytosis trending down.
- Continue to monitor.
# s/p recent UGI bleed
# s/p Blood loss anemia
- s/p EGD: large duodenal ulcer with clots
# ARISTEO on CKD now HD dependent
# s/p Klebsiella complicated UTI with bacteremia
# Severe b/l hydroureter/hydronephrosis
# right renal subcapsular hematoma vs seroma vs urinoma
# Atonic bladder with chronic valverde
- pt declined percutaneous nephrostomy.
Per IR left hydro somewhat improved with CBI, valverde decompression and perc neph unlikely to help with renal function.
- Completed 14d of abx through 05/10/24.
Chief Complaint
-: Other (Bowel perforation)
Subjective / Review of Systems
No abd pain
Vital Signs / Physical Exam
Vital Signs
Vital Signs
Temp Pulse Resp BP Pulse Ox
97.5 F 66 17 104/54 95
05/16/24 07:55 05/16/24 08:00 05/16/24 08:00 05/16/24 08:00 05/16/24 08:00
Physical Exam
Constitutional: No Acute Distress and Comfortable
Cardiovascular: Regular Rate and S1/S2
Pulmonary: Clear
Gastrointestinal: Soft, Non Tender, Non Distended, Decreased Bowel Sounds and Other (MEREDITH drain with serous fluid)
Genito-Urinary: Valverde (empty); Negative CVA Tenderness
Extremities: Edema (+ pedal edema bilaterally)
Lines: HD Cath (RCW no erythema)
Objective Data
Lab Data
Lab Results
05/16/24 03:46
05/16/24 03:46
PT 16.6 Sec (11.4-14.6) H 05/10/24 07:46
INR 1.29 05/10/24 07:46
APTT 35.0 Sec (23.4-35.0) 05/10/24 07:46
Estimated Creat Clear 14 ml/min 05/16/24 03:46
Lactic Acid 0.7 mmol/L (0.7-2.0) 04/28/24 12:05
Total Bilirubin 1.0 mg/dl (0.2-1.3) 05/13/24 04:53
AST 22 U/L (17-59) 05/13/24 04:53
ALT < 10 U/L (0-50) 05/13/24 04:53
Alkaline Phosphatase 395 U/L (38-126) H 05/13/24 04:53
Most recent labs reviewed.
Micro Results:
05/11/24 10:20 Anaerobic Culture - Final
Fluid NO ANAEROBES ISOLATED
05/11/24 10:20 Wound Culture - Preliminary
Abdomen Enterococcus faecium
Gram Stain - Preliminary
05/12/24 10:42 MRSA Screen - Final
Nose No Methicillin Resistant Staphylococcus aureus isolated.
05/04/24 13:55 Urine Culture - Final
Urine NO GROWTH
04/29/24 09:09 Blood Culture - Final
Blood/Venous No Growth - Final Report
04/27/24 14:16 Blood Culture - Final
Blood/Venous No Growth - Final Report
04/26/24 15:46 Urine Culture - Final
Urine Klebsiella pneumoniae
04/26/24 19:21 Blood Culture - Final
Blood/Venous Klebsiella pneumoniae
Gram Stain - Final
04/26/24 15:02 Blood Culture - Final
Blood/Venous Klebsiella pneumoniae
Gram Stain - Final
04/27/24 Renal US: Bilateral hydronephrosis, moderate left and mild right.
05/04/24 CT a/p wo IV contrast: Severe bilateral hydroureter. No obstructing radiopaque stones are noted. Possible subcapsular right renal fluid collection. Limited evaluation without IV contrast. Renal masses and masses of the collecting system
and bladder cannot be excluded without IV contrast. Mild prostate hypertrophy.
05/07/24 CTa/p: 1. Negative for active gastrointestinal hemorrhage. As above, there is gastric and duodenal mucosal hyperenhancement, but no active bleeding is identified. Patient's known duodenal ulcer is not well seen at CT.
2. Persistent moderate left hydronephrosis and persistent bilateral hydroureter. As above, there is abnormal appearance of the right kidney with subcapsular collection which nearly completely surrounds the kidney. There are associated compressive
changes of the right kidney with diminished enhancement and misshapen cortex. There is mild prominence of the right renal collecting system, no marked hydronephrosis. Collection shows greater than simple fluid attenuation and could represent old
hematoma/seroma. Urinoma is also a diagnostic consideration. Presence or absence of superimposed infection cannot be determined by this examination. 3. Valverde catheter in position within decompressed urinary bladder. Diffuse marked urinary bladder
wall thickening related to either chronic outlet obstruction or neurogenic bladder.
05/09/24 CT a/p: Several loops of small bowel in the left abdomen with moderate circumferential wall thickening. Moderate abdominopelvic ascites. Progressed. Moderate bilateral pleural effusions.. Progressed bilaterally. Moderate left lower lobe
consolidation. Stable. Mild right lower lobe consolidation. Stable. Probably atelectasis. Moderate subcapsular right perinephric fluid collection. Differential diagnosis includes hematoma, seroma and less likely infection. Stable. Associated stable
compressive effects on the renal parenchyma. Addendum: Small bowel loops in the left hemiabdomen with wall thickening and a few small scattered foci of gas that appear to be centered within the small bowel wall raising concern for pneumatosis and
ischemic enteritis.
05/11/24 CXR: The endotracheal tube is in satisfactory position. There are moderate bilateral pleural effusions with associated compressive atelectasis at the retrocardiac left lung base
Care Review
Plan reviewed with: Physician (Dr. Peterson)
--- NOTE | 2024-05-16 10:56 | PHA.VAN.FU ---
Vancomycin Assessment / Plan
- Assessment
Hemodialysis Schedule: MWF
Last Hemodialysis performed: 05/14
WBC's are: Trending Down
In the past 24 hrs, patient has been: Afebrile
- Assessment - Therapeutic Drug Monitoring
Random Level: 13.7 05/15 pre-HD
- Dosing Plan
Continue: to dose by level with consideration of HD schedule
Dosing by Level: Re-dose today (500 mg)
- Monitoring Plan
Random Level: 05/17, pre-HD
- Follow Up
Pharmacy will continue to follow.
Vancomycin Follow UP
- -
Patient Age: 83
Patient Sex: Male
Vancomycin Day #: 5
Indication: Gi / Intra-Abdominal
Requesting Provider: Dr Wright
Pertinent Antimicrobial Allergies:
clopidogrel
Height / Weight:
Height 5 ft 6 in
Actual Weight 65.8 kg
Pertinent Past Medical History: neurogenic bladder, chronic valverde; ESRD on HD
- Vital Signs / Lab Results
Temp Pulse Resp BP Pulse Ox
97.5 F 66 17 104/54 95
05/16/24 07:55 05/16/24 08:00 05/16/24 08:00 05/16/24 08:00 05/16/24 08:00
Lab Results - Hematology
05/14/24 05/15/24 05/16/24
04:22 05:13 03:46
WBC 13.0 H 15.1 H 11.8 H
Lab Results - Chemistry
05/14/24 05/15/24 05/16/24
04:22 05:13 03:46
BUN 43 H 63 H 43 H
Creatinine 4.4 H* 5.2 H* 3.6 H
Estimated Creat Clear 12 10 14
Microbiology Results
05/11/24 10:20 Wound Culture - Final
Abdomen Enterococcus faecium
Gram Stain - Final
05/11/24 10:20 Anaerobic Culture - Final
Fluid NO ANAEROBES ISOLATED
Therapeutic Drug Monitoring
Random Vancomycin 13.7 ug/ml 05/15/24 05:13
[2024-05-16] MEDS: NOVOLOG FLEXPEN-HIGH RESISTANCE 4 UNITS SC (12:17)
[2024-05-16] MEDS: LANTUS 0.1 UNITS SC (12:17)
[2024-05-16 12:30] LABS: Glucose - Point of Care 234 mg/dl (70-99)
[2024-05-16] MEDS: VANCOCIN HCL 500 MG 100 IV (13:08)
[2024-05-16] MEDS: TYLENOL ORAL SOLUTION 650 MG PO (13:09)
--- NOTE | 2024-05-16 14:21 | CM ---
CM following re: discharger planning.
Reviewed pt's chart, met with pt and pt's spouse at bedside.
CM received a phone call from [facility] [employer] trader [place] [phone] x [phone] and she confirmed that a referral for outpatient HD treatment at [facility] on [facility] is under review.
Pt is accepted for admission to [facility] when medically stable for a short term rehab and HD treatment onsite.
D/C plan: [facility] for a short term rehab and HD treatment onsite for a short term rehab and possible LTC.
CM will follow to assist pt with discharge to [facility] for a short term rehab and HD treatment onsite.
--- NOTE | 2024-05-16 14:51 | PTCARENOTE ---
Pt OOB in chair x2hrs. Ate 1/2 of broth, couple bites of water ice and gingerale for lunch. Back in bed and sleeping at this time.
[2024-05-16] MEDS: NOVOLOG FLEXPEN-HIGH RESISTANCE 7 UNITS SC (16:46)
[2024-05-16 16:56] LABS: Glucose - Point of Care 282 mg/dl (70-99)
--- NOTE | 2024-05-16 19:30 | PTCARENOTE ---
Patient received sitting up in bed with clear liquid dinner tray in front of him. He is taking in some po and tolerating. Son Saad is at the bedside. Afebrile and VSS. Aflutter on CM. Denies pain. Rosenthal catheter in place. No UO noted. Midline
Abdominal dressing CDI. Right sided MEREDITH drain to bulb suction with serous drainage. Good bowel sounds all 4 quadrants. Respirations non labored. Right tunneled IJ catheter capped. Left arm midline, flushes without difficulty. Flat affect, poor eye
contact. Forgetful--does not remember visiting this morning. Oriented to person, year but does not know month, and knows that he is in hospital although he does not recall which one. Emotional support and encouragement provided as needed,
reoriented as needed.
--- NOTE | 2024-05-16 20:22 | PTCARENOTE ---
Vital signs pulled over from 12pm. Unable to verify VS results from [id number]
[2024-05-16 21:50] LABS: Glucose - Point of Care 269 mg/dl (70-99)
[2024-05-16] MEDS: MELATONIN TUBE (22:18)
--- NOTE | 2024-05-16 22:25 | PTCARENOTE ---
Patient bedtime fingerstick blood sugar 269. No coverage or Lantus ordered for tonight. [place] Text sent to JULIO CESAR Jordan. No new medication orders at this time. Will recheck Blood sugar at 0300 as requested.
[2024-05-16] MEDS: MELATONIN 5 MG TUBE (22:28)
[2024-05-17] VITALS (28 sets, daily range): BP systolic 86–138; BP diastolic 32–66; BMI 23.4
[2024-05-17 02:46] LABS: Glucose - Point of Care 212 mg/dl (70-99)
[2024-05-17] MEDS: ZOSYN 50 IV (03:20)
--- NOTE | 2024-05-17 07:11 | W.PN.HOSP.TC ---
Addendum entered and electronically signed by Valdemar Ellis MD 05/17/24 13:59:
Seen and examined by me independently in collaboration with the certified medical records coder.
Lab data and imaging data reviewed.
Addendum as below :
Patient denies any abdominal complaints. No pain. No nausea vomiting. Tolerating clears. Diet getting advanced to full liquids now. H&H is stable. Patient initiated on subcu heparin for DVT prophylaxis.
Hemodynamically stable.
Continue with antibiotics per ID.
Continue with hemodialysis which she is tolerating.
Continue with physical therapy.
If remains stable today we will transition him to telemetry tomorrow
Original Note:
Today's Communication/Plan
-
Full liquids with ensure
maintain Lonny per surgery
Pt/ot
Assessment / Plan
Assessment / Plan
83-year-old male with known past medical history of essential hypertension currently on multiple drugs, insulin-dependent diabetes, neurogenic/atonic bladder with chronic Valverde catheter, coronary artery disease/CT 3 years ago s/p cardiac stenting
and currently on prasugrel and CKD 3B presented with his due to confusion and lethargy for few days. Hb dropped after started on eliquis for new onset a fib.
#UGIB
#PUD
# Perforated duodenal ulcer with peritonitis
-unclear if it is related to eliquis use since he was on prasugrel before
-Status post 8 units of PRBC total this hospital stay
-Developed dark maroon stools after being started on Eliquis last week
-EGD showed nonbleeding peptic ulcer and a large duodenal ulcer with clot adherent
-per GI hold anticoagulants; cardio recommend to start single agent eliquis when ok by GI
-POD #6 Perforated duodenal bulb ulcer
-s/p Exploratory laparotomy abdominal washout,
-LONNY with serosanguineous drainage hemoglobin stable.
-Peritonitis; Continue PPI; protonix bid for 1 month post op per surgery
-Advance diet to Full liquids with ensure
-continue vanco for now
- abdominal fluid culture +enterococcus faecium
#Sepsis due to CAUTI - POA
septic shock due to above
#Neurogenic bladder with chronic valverde catheter
-urine culture showed Klebsiella pneumonia
-appreciate urology recs-continue valverde
-Will need outpatient follow-up with urology
-hold finasteride, tamsulosin; continue with Valverde at discharge
-IR recommend to hold off on PCN for now
-cont abx; ID following
#DVT Right UE
-d/c picc line on RIght UE
- on heparin sc for dvt
#New onset ESRD
#H/O CKD 3B
-Has been initiated on HD every M/W/ with nephrology here; HD today
-Had tunneled HD cath placed for long-term dialysis access; Right UE swelling, US no dvt
-Recent CT showed ongoing obstructive uropathy, now s/p Valverde catheter
-Trend daily BMP, continue with dialysis as scheduled
-Will need follow-up at discharge with nephrology and urology
#New onset Atrial fibrillation
-Was already on rate controlling agent with home carvedilol
-Was started on Eliquis here though currently on hold for UGIB as above
-cardio recommend to start single agent eliquis when ok by GI
#Type 2 DM
-Home medications include Lantus, NovoLog, Tresiba; previously on Farxiga
-Had severe hyperglycemia on arrival, suspected to be HHS, now improved
-Blood glucose currently stable on ssc insulin
#CAD s/p PCI
-Had PCI in 2021; Home meds include high intensity statin, beta-elsie, prasugrel
-Due to occurrence of new onset AF, prasugrel was transition to Eliquis
-Eliquis currently on hold due to GI bleeding as above
#Essential HTN
-Home medications include carvedilol, amlodipine
-No known history of hypertensive systemic diseases
#HLD
-hold statin
#Elevated LFTs
-Likely secondary to infection/sepsis, reduced perfusion
#Toxic metabolic encephalopathy
-Likely multifactorial with sepsis, possible HHS/severe hyperglycemia
Code status: DNR
DVT prophylaxis: SCDs, heparin sc
Anticipated Discharge: > 48 hours
Subjective/Interval History
-
Date of Service: May 17, 2024
No new complains.
AFVSS
Doing well post op
Objective Data
-
Labs:
Laboratory Results
05/16/24 05/17/24
23:57 07:00
Hgb Pending
Hct Pending
HCO3 Cancelled
Sodium Pending
Potassium Pending
Chloride Pending
Carbon Dioxide Pending
BUN Pending
Creatinine Pending
Glucose Pending
Calcium Pending
Vital Signs:
Vital Signs
Temp Pulse Resp BP Pulse Ox
97.5 F 72 15 121/51 93
05/17/24 03:18 05/17/24 04:00 05/17/24 04:00 05/17/24 04:00 05/17/24 02:00
I&O
05/16/24 05/17/24 05/18/24
06:59 06:59 06:59
Intake Total 260 / 260 990 / 990
Output Total 540 / 540 410 / 410
Balance -280 / -280 580 / 580
Review of Systems
-
History Source: Patient
Constitutional: Reports No Symptoms
Respiratory: Reports No Symptoms
Cardiac: Reports No Symptoms
Abdomen/GI: Reports No Symptoms
Genitourinary: Reports No Symptoms
Physical Exam
-
General: Comfortable and Appears Chronically Ill
Respiratory: Non Labored Respirations; Negative Accessory Resp Muscle Use
Cardiac: Regular Rhythm and S1/S2; Negative Murmur, Rub or Gallop
GI: Soft and Other (dressing intact. Daren drain with ssg)
Musculoskeletal: Edema, Left Upper Extrem
Skin: Warm and Dry; Negative Rash
Neuro: Awake, Alert and Oriented
Psych: Calm
Data Reviewed
-
Labs: Labs Reviewed by me, Discussed with Physician and Discussed with Patient
--- NOTE | 2024-05-17 07:13 | PTCARENOTE ---
Report given verbally to Chastity person RN. Questions answered.
--- NOTE | 2024-05-17 07:37 | W.PN.GS2 ---
Today's Communication / Plan
-
`
Assessment / Plan
-
Assessment: 83-year-old male who presented initially in DKA with ARISTEO and urosepsis.
POD #6 exploratory laparotomy, primary repair duodenal bulb ulcer with omental pedicle flap.
AFVSS
doing well post op
MEREDITH with clear outputs
Plan:
full liquid diet with ensure supplements
protonix BID x 1 month post op
only need to empty MEREDITH every 8hrs - likely will remove tomorrow
start heparin for VTEp - hgb stable
PT/OT
Rosenthal as per urology
ID following for ABX recommendations - post op course of zosyn completed yesterday
Subjective Data
-
Date of Service: May 17, 2024
pt seen and examined
sleeping but awoke easily, starting HD
denies pain, no nausea
flatus+, no BM
Objective Data
-
Intake and Output
05/16/24 05/17/24 05/18/24
06:59 06:59 06:59
Intake Total 260 / 260 990 / 990
Output Total 540 / 540 410 / 410
Balance -280 / -280 580 / 580
Intake:
Oral fluids 830 / 830
IV fluids (Total) 70 / 70
Protonix 70 / 70
IV piggybacks 100 / 100 160 / 160
Amount instilled into GI Tube ( 90 / 90
Total)
[place] Sump 90 / 90
Output:
Drain Output (Total) 510 / 510 410 / 410
Right Abdomen Alfie-Biswas 510 / 510 410 / 410
Urine, [place] 30 / 30 0 / 0
Vital Signs
Temp Pulse Resp BP Pulse Ox
97.5 F 72 15 121/51 93
05/17/24 03:18 05/17/24 04:00 05/17/24 04:00 05/17/24 04:00 05/17/24 02:00
Calcium 7.4 mg/dl (8.4-10.2) L 05/16/24 03:46
Phosphorus 3.8 mg/dl (2.5-4.5) 05/13/24 04:53
Magnesium 2.4 mg/dl (1.6-2.3) H 05/16/24 03:46
Total Bilirubin 1.0 mg/dl (0.2-1.3) 05/13/24 04:53
AST 22 U/L (17-59) 05/13/24 04:53
ALT < 10 U/L (0-50) 05/13/24 04:53
Alkaline Phosphatase 395 U/L (38-126) H 05/13/24 04:53
Total Protein 4.3 g/dl (6.3-8.2) L 05/13/24 04:53
Albumin 2.1 g/dl (3.5-5.0) L 05/13/24 04:53
Physical Exam
-
NAD AAO
ABD: soft, ND, minimal incisional tenderness
incision open btwn some saad
clean, no erythema, no significant drainage
MEREDITH with straw colored fluid
[2024-05-17 07:57] LABS: Hematocrit 30.8 % (39.0-52.0); Hemoglobin 10.2 g/dL (13.0-18.0)
--- NOTE | 2024-05-17 08:12 | PN.DE.MGMTRT ---
Insulin Management
- -
05/17/2024: Diabetes Management Follow up:
Patient brought to ED with change of mental status, found to be in DKA. PMH CAD, HTN, diabetes, CKD 3b, UTI 1 month ago. Prior to admission was taking Tresiba 10 units @ hs. A1C on 03/22/24 was 8.5%--> A1C 9.6% this admission. Cr 6.3, eGFR
8.7-->5.3, eGFR 10.16
Patient was managed on insulin infusion and transitioned off on 04/28 to SQ Insulin.
05/10 Noted for Perforated duodenal ulcer with peritonitis.
Patient extubated, resting in bed with eyes closed on HD.
POD #5 diagnostic lap with perforated duodenal ulcer noted with diffuse peritonitis; 4 L of bilious ascites; procedure converted to open exp lap for abdominal washout, primary repair duodenal bulb ulcer with omental pedicle flap.
05/15 Glucose trended up to 210.
05/16 Fasting glucose 172 this AM and 234 @ 12 noon. Lantus 10 units daily in AM restarted, with high corrective insulin.
05/17 Patient receiving HD this AM, will not adjust lantus today.
Will follow for further needed adjustments.
Discussed with patients nurse.
Diabetes History
- -
Type of Diabetes: 2 requiring insulin
Pre-Admission Diabetes Regimen
Lab Results
Hemoglobin A1c 9.6 % (4.0-5.6) H 04/27/24 06:06
Insulin Pump Settings
IP Diabetes Regimen
05/16/24 05/16/24 05/16/24
12:16 16:45 21:38
POC Glucose 234 H 282 H 269 H
05/17/24
02:35
POC Glucose 212 H
Meal type: Dinner
Meal type: Breakfast
Amount consumed: 30%
Amount consumed: Patient refused
Patient Education
[2024-05-17 08:19] LABS: Blood Urea Nitrogen 55 mg/dl (9-20); Carbon Dioxide 29 mmol/L (22-30); Chloride 95 mmol/L (98-107); Estimated Creatinine Clearance 11 ml/min; Glucose 173 mg/dl (70-99); Potassium 3.9 mmol/L (3.5-5.1); Sodium 133 mmol/L (135-145); Vancomycin Random 15.4 ug/ml; eGFR 11.73
[2024-05-17] MEDS: MANNITOL 25% 12.5 GRAMS IV ×2 (08:20→10:11)
[2024-05-17] MEDS: NSS (PRESERVATIVE FREE) 10 ML IV ×2 (08:37→19:06)
[2024-05-17] MEDS: PROTONIX IV 40 MG IV ×2 (08:37→19:06)
[2024-05-17] MEDS: NOVOLOG FLEXPEN-HIGH RESISTANCE 1 UNITS SC ×2 (08:40→11:59)
[2024-05-17 09:02] LABS: Glucose - Point of Care 137 mg/dl (70-99)
[2024-05-17] MEDS: RETACRIT 6000 UNITS IV (09:02)
--- NOTE | 2024-05-17 09:21 | W.PN.NEPH.HD ---
Assessment
-
Seen on HD. no complaints. VSS, access ok
cvc ok
Progress Note - Hemodialysis
-
Date of Service: May 17, 2024
Duration: 30 minutes and 3 hours
Potassium Bath: 2
Calcium Bath: 2.5
Opti-Dialyzer: 160
Ultrafiltration: Other (1 kg)
Blood Flow: 400
Dialysate Flow: 600
Heparin: no
EPO: 6000 units
--- NOTE | 2024-05-17 09:27 | PTCARENOTE ---
patient in bed. Dialysis in progress VSS
--- NOTE | 2024-05-17 09:33 | W.PN.URO.CBU ---
Today's Communication / Plan
-
monitor urine output bladder scan if need be
Assessment / Plan
-
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
Klebsiella urosepsis and bacteremia
Significant pyuria secondary to cUTI - resolved
Malpositioned catheter w/ suboptimal drainage - resolved
Bilateral hydroureteronephrosis
Right subcapsular fluid collection
s/p ex lap and bowel resection/repair
pt now dialysis dependent
cath flushes easily with no hematuria or evid of debris/obstruction
continue valverde for now as clinical status clarifies
will follow
Diagnosis
-
Date of Service: May 17, 2024
-
Patient Diagnosis:
Post Op Day:
Patient Diagnosis:
Post Op Day:
Patient Diagnosis:
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
Klebsiella urosepsis/bacteremia
Significant pyuria secondary to cUTI
Bilateral hydroureteronephrosis is now resolved as valverde draining free of debris
s/p ex lap- repair of bowel perf
Subjective
-
urine clear but low volume
Objective
-
Vital Signs
Temp Pulse Resp BP Pulse Ox
97.8 F 72 15 121/51 93
05/17/24 08:06 05/17/24 04:00 05/17/24 04:00 05/17/24 04:00 05/17/24 02:00
Intake and Output
05/16/24 05/17/24 05/18/24
06:59 06:59 06:59
Intake Total 260 / 260 990 / 990
Output Total 540 / 540 410 / 410
Balance -280 / -280 580 / 580
Intake:
Oral fluids 830 / 830
IV fluids (Total) 70 / 70
Protonix 70 / 70
IV piggybacks 100 / 100 160 / 160
Amount instilled into GI Tube (
Total)
[place] Sump
Output:
Drain Output (Total) 510 / 510 410 / 410
Right Abdomen Alfie-Biswas 510 / 510 410 / 410
Urine, Valverde 30 / 30 0 / 0
Laboratory Results
05/17/24 07:36
05/17/24 07:36
Review of Systems
-
: Difficulty Voiding
Physical Exam
-
General - well developed, well nourished, no acute distress
Chest - clear bilaterally
Abdomen - soft, non-tender, positive bowel sounds, no CVAT, no incisional pain or distention
Genitalia - normal
Rectal - normal
Skin - warm & dry with no rash
Neuro - AOx3, no motor deficits
Extremities - no clubbing, no cyanosis, no edema
Incision - clean, dry
Dressing - clean, dry, intact
Care Review
Data Reviewed
Discussed with: Nursing
--- NOTE | 2024-05-17 10:37 | PHA.VAN.FU ---
Vancomycin Assessment / Plan
- Assessment
Hemodialysis Schedule: MWF
- Assessment - Therapeutic Drug Monitoring
Random Level: 15.4, prior to HD
- Dosing Plan
Continue: to dose by level with HD considerations
Dosing by Level: Re-dose today (500mg)
- Monitoring Plan
Random Level: 12/13 am
- Follow Up
Pharmacy will continue to follow.
Vancomycin Follow UP
- -
Patient Age: 83
Patient Sex: Male
Vancomycin Day #: 6
Indication: Gi / Intra-Abdominal
Requesting Provider: Dr Wright
Pertinent Antimicrobial Allergies:
clopidogrel
Height / Weight:
Height 5 ft 6 in
Actual Weight 65.8 kg
Pertinent Past Medical History: neurogenic bladder, chronic valverde; ESRD on HD
- Vital Signs / Lab Results
Temp Pulse Resp BP Pulse Ox
97.8 F 72 15 121/51 93
05/17/24 08:06 05/17/24 04:00 05/17/24 04:00 05/17/24 04:00 05/17/24 02:00
Lab Results - Hematology
05/15/24 05/16/24
05:13 03:46
WBC 15.1 H 11.8 H
Lab Results - Chemistry
05/15/24 05/16/24 05/17/24
05:13 03:46 07:36
BUN 63 H 43 H 55 H
Creatinine 5.2 H* 3.6 H 4.7 H*
Estimated Creat Clear 10 14 11
Microbiology Results
05/11/24 10:20 Wound Culture - Final
Abdomen Enterococcus faecium
Gram Stain - Final
05/11/24 10:20 Anaerobic Culture - Final
Fluid NO ANAEROBES ISOLATED
Therapeutic Drug Monitoring
Random Vancomycin 15.4 ug/ml 05/17/24 07:36
[2024-05-17 11:56] LABS: Glucose - Point of Care 147 mg/dl (70-99)
[2024-05-17] MEDS: LANTUS 0.1 UNITS SC (11:58)
[2024-05-17] MEDS: FLUSH (NSS) 1 FLUSH INTRACATH (12:07)
[2024-05-17] MEDS: HEPARIN 5000 UNITS SC ×2 (12:15→19:06)
[2024-05-17] MEDS: MIRALAX 17 GRAMS PO (12:15)
[2024-05-17] MEDS: VANCOCIN HCL 500 MG 100 IV (13:13)
--- NOTE | 2024-05-17 13:34 | W.PN.ID1 ---
Date of Service
Date of Service: May 17, 2024
Today's Communication
Continue in IV Vancomycin (d6 of 7) for E. faecium
Assessment / Plan
# Perforated duodenal ulcer with peritonitis
- 05/12/24 s/p abd washout, repair of duodenal ulcer
- OR gram stain: GPC in pairs; cx Enterococcus faecium, resistant to ampicillin, sensitive to Vancomycin
- Completed Zosyn (7 days)
-Continue in IV Vancomycin (d6 of 7) for E. faecium
# s/p Septic shock due to above
# Leukocytosis trending down.
- Continue to monitor.
# s/p recent UGI bleed
# s/p Blood loss anemia
- s/p EGD: large duodenal ulcer with clots
# ARISTEO on CKD now HD dependent
# s/p Klebsiella complicated UTI with bacteremia
# Severe b/l hydroureter/hydronephrosis
# right renal subcapsular hematoma vs seroma vs urinoma
# Atonic bladder with chronic valverde
- pt declined percutaneous nephrostomy.
Per IR left hydro somewhat improved with CBI, valverde decompression and perc neph unlikely to help with renal function.
- Completed 14d of abx through 05/10/24.
Chief Complaint
-: Other (Bowel perforation)
Subjective / Review of Systems
No complaints.
Vital Signs / Physical Exam
Vital Signs
Vital Signs
Temp Pulse Resp BP Pulse Ox
98.0 F 72 15 121/51 93
05/17/24 11:10 05/17/24 04:00 05/17/24 04:00 05/17/24 04:00 05/17/24 02:00
Physical Exam
Constitutional: No Acute Distress and Comfortable
Cardiovascular: Regular Rate and S1/S2
Gastrointestinal: Soft, Non Tender and Non Distended
Neurological: AO x 3
Objective Data
Lab Data
Lab Results
05/17/24 07:36
05/17/24 07:36
PT 16.6 Sec (11.4-14.6) H 05/10/24 07:46
INR 1.29 05/10/24 07:46
APTT 35.0 Sec (23.4-35.0) 05/10/24 07:46
Estimated Creat Clear 11 ml/min 05/17/24 07:36
Lactic Acid 0.7 mmol/L (0.7-2.0) 04/28/24 12:05
Total Bilirubin 1.0 mg/dl (0.2-1.3) 05/13/24 04:53
AST 22 U/L (17-59) 05/13/24 04:53
ALT < 10 U/L (0-50) 05/13/24 04:53
Alkaline Phosphatase 395 U/L (38-126) H 05/13/24 04:53
Most recent labs reviewed.
Micro Results:
05/11/24 10:20 Wound Culture - Final
Abdomen Enterococcus faecium
Gram Stain - Final
05/11/24 10:20 Anaerobic Culture - Final
Fluid NO ANAEROBES ISOLATED
05/12/24 10:42 MRSA Screen - Final
Nose No Methicillin Resistant Staphylococcus aureus isolated.
05/04/24 13:55 Urine Culture - Final
Urine NO GROWTH
04/29/24 09:09 Blood Culture - Final
Blood/Venous No Growth - Final Report
04/27/24 14:16 Blood Culture - Final
Blood/Venous No Growth - Final Report
04/26/24 15:46 Urine Culture - Final
Urine Klebsiella pneumoniae
04/26/24 19:21 Blood Culture - Final
Blood/Venous Klebsiella pneumoniae
Gram Stain - Final
04/26/24 15:02 Blood Culture - Final
Blood/Venous Klebsiella pneumoniae
Gram Stain - Final
04/27/24 Renal US: Bilateral hydronephrosis, moderate left and mild right.
05/04/24 CT a/p wo IV contrast: Severe bilateral hydroureter. No obstructing radiopaque stones are noted. Possible subcapsular right renal fluid collection. Limited evaluation without IV contrast. Renal masses and masses of the collecting system
and bladder cannot be excluded without IV contrast. Mild prostate hypertrophy.
05/07/24 CTa/p: 1. Negative for active gastrointestinal hemorrhage. As above, there is gastric and duodenal mucosal hyperenhancement, but no active bleeding is identified. Patient's known duodenal ulcer is not well seen at CT.
2. Persistent moderate left hydronephrosis and persistent bilateral hydroureter. As above, there is abnormal appearance of the right kidney with subcapsular collection which nearly completely surrounds the kidney. There are associated compressive
changes of the right kidney with diminished enhancement and misshapen cortex. There is mild prominence of the right renal collecting system, no marked hydronephrosis. Collection shows greater than simple fluid attenuation and could represent old
hematoma/seroma. Urinoma is also a diagnostic consideration. Presence or absence of superimposed infection cannot be determined by this examination. 3. Valverde catheter in position within decompressed urinary bladder. Diffuse marked urinary bladder
wall thickening related to either chronic outlet obstruction or neurogenic bladder.
05/09/24 CT a/p: Several loops of small bowel in the left abdomen with moderate circumferential wall thickening. Moderate abdominopelvic ascites. Progressed. Moderate bilateral pleural effusions.. Progressed bilaterally. Moderate left lower lobe
consolidation. Stable. Mild right lower lobe consolidation. Stable. Probably atelectasis. Moderate subcapsular right perinephric fluid collection. Differential diagnosis includes hematoma, seroma and less likely infection. Stable. Associated stable
compressive effects on the renal parenchyma. Addendum: Small bowel loops in the left hemiabdomen with wall thickening and a few small scattered foci of gas that appear to be centered within the small bowel wall raising concern for pneumatosis and
ischemic enteritis.
05/11/24 CXR: The endotracheal tube is in satisfactory position. There are moderate bilateral pleural effusions with associated compressive atelectasis at the retrocardiac left lung base
[2024-05-17 17:40] LABS: Glucose - Point of Care 225 mg/dl (70-99)
[2024-05-17] MEDS: NOVOLOG FLEXPEN-HIGH RESISTANCE 4 UNITS SC (17:58)
--- NOTE | 2024-05-17 20:13 | PTCARENOTE ---
assumed care of pt, AAO forgetful denies pain, NSR on the monitor, + radials doppler pedals, +2 B/L UE +1 anasarca, diminished RA 95%, BSx4 hypoactive, RJP serous output, 3 way valverde oliguric, foams on sacrum and back, ABD dressing dry and intact,
skin tear on penis foam applied, L midline, RIJ HD cath, CHG bath, family @ beside and updated, call shaffer within reach otherwise refer to documentation.
[2024-05-17 22:21] LABS: Glucose - Point of Care 201 mg/dl (70-99)
[2024-05-17] MEDS: MELATONIN 5 MG PO (23:01)
[2024-05-17] MEDS: MELATONIN TUBE (23:06)
[2024-05-18] VITALS (13 sets, daily range): BP systolic 99–159; BP diastolic 27–61; O2SAT 99; BMI 22.7
[2024-05-18 04:57] LABS: Hemoglobin 8.8 g/dL (13.0-18.0); Mean Corp Hgb Conc. 31.4 g/dL (33.0-37.0); Mean Corpuscular Hgb 28.9 pg (27.0-31.0); Mean Corpuscular Volume 91.8 fL (80.0-94.0); Mean Platelet Volume 11.9 fL (7.4-10.4); Platelet Count 114 10^3/uL (130-400); Red Blood Cell Count 3.05 10^6/uL (4.70-6.10); Red Cell Dist. Width 15.6 % (11.5-14.5)
[2024-05-18 05:27] LABS: ALT (SGPT) < 10 U/L (0-50); AST (SGOT) 15 U/L (17-59); Alkaline Phosphatase 270 U/L (38-126); Blood Urea Nitrogen 29 mg/dl (9-20); Carbon Dioxide 30 mmol/L (22-30); Chloride 97 mmol/L (98-107); Estimated Creatinine Clearance 16 ml/min; Glucose 131 mg/dl (70-99); Potassium 3.6 mmol/L (3.5-5.1); Sodium 134 mmol/L (135-145); Total Bilirubin 0.6 mg/dl (0.2-1.3); Total Protein 4.7 g/dl (6.3-8.2); eGFR 17.93
--- NOTE | 2024-05-18 07:23 | W.PN.HOSP.TC ---
Addendum entered and electronically signed by Valdemar Ellis MD 05/18/24 12:52:
Seen and examined by me independently in collaboration with the biomedical manager.
Lab data and imaging data reviewed.
Addendum as below :
Patient says he is feeling hungry. Denies any abdominal pain. Tolerating full liquids so his diet is getting advanced to more solids today.
Denies any shortness of breath. No chest pain.
Lab data showed H&H with a drop compared to yesterday but no external bleeding. Doubt active bleeding. Will check it again this evening.
Continue with the diet.
Finishing up antibiotics. Improving white count. ID signed off.
If H&H remains stable we will transfer him out to telemetry.
Continue with PT OT treatments
Discussed with surgery today-if H&H is stable we could start the IV heparin without boluses for his right upper extremity DVT
Original Note:
Today's Communication/Plan
-
continue abx
diabetic diet
Maintain daren drain per surgery
Assessment / Plan
Assessment / Plan
83-year-old male with known past medical history of essential hypertension currently on multiple drugs, insulin-dependent diabetes, neurogenic/atonic bladder with chronic Valverde catheter, coronary artery disease/AK 3 years ago s/p cardiac stenting
and currently on prasugrel and CKD 3B presented with his due to confusion and lethargy for few days. Hb dropped after started on eliquis for new onset a fib.
#UGIB
#PUD
# Perforated duodenal ulcer with peritonitis
-unclear if it is related to eliquis use since he was on prasugrel before
-Status post 8 units of PRBC total this hospital stay
-Developed dark maroon stools after being started on Eliquis last week
-EGD showed nonbleeding peptic ulcer and a large duodenal ulcer with clot adherent
-per GI hold anticoagulants; cardio recommend to start single agent eliquis when ok by GI
-POD #6 Perforated duodenal bulb ulcer
-s/p Exploratory laparotomy abdominal washout,
-MEREDITH with straw colored- plan to remove tomorrow per surgery
-Peritonitis; Continue PPI; protonix bid for 1 month post op per surgery
-Tolerating Full liquids with ensure: Diabetic diet/low residue as tolerated with supplements per suregry
-continue vanco for now
-abdominal fluid culture +enterococcus faecium
-Hb dropped slightly but no signs of active bleeding.
#Sepsis due to CAUTI - POA
septic shock due to above
#Neurogenic bladder with chronic valverde catheter
-urine culture showed Klebsiella pneumonia
-appreciate urology recs-continue valverde
-Will need outpatient follow-up with urology
-hold finasteride, tamsulosin; continue with Valverde at discharge
-IR recommend to hold off on PCN for now
-cont abx; ID following
#DVT Right UE
-d/c picc line on RIght UE
- on heparin sc for dvt
#New onset ESRD
#H/O CKD 3B
-Has been initiated on HD every M/W/ with nephrology here; HD tomorrow
-Had tunneled HD cath placed for long-term dialysis access; Right UE swelling, US no dvt
-Recent CT showed ongoing obstructive uropathy, now s/p Valverde catheter
-Trend daily BMP, continue with dialysis as scheduled
-Will need follow-up at discharge with nephrology and urology
#New onset Atrial fibrillation
-Was already on rate controlling agent with home carvedilol
-Was started on Eliquis here though currently on hold for UGIB as above
-cardio recommend to start single agent eliquis when ok by GI
#Type 2 DM
-Home medications include Lantus, NovoLog, Tresiba; previously on Farxiga
-Had severe hyperglycemia on arrival, suspected to be HHS, now improved
-Blood glucose currently stable on ssc insulin
#CAD s/p PCI
-Had PCI in 2021; Home meds include high intensity statin, beta-elsie, prasugrel
-Due to occurrence of new onset AF, prasugrel was transition to Eliquis
-Eliquis currently on hold due to GI bleeding as above
#Essential HTN
-Home medications include carvedilol, amlodipine
-No known history of hypertensive systemic diseases
#HLD
-hold statin
#Elevated LFTs
-Likely secondary to infection/sepsis, reduced perfusion
#Toxic metabolic encephalopathy
-Likely multifactorial with sepsis, possible HHS/severe hyperglycemia
Code status: DNR
DVT prophylaxis: SCDs, heparin sc
Anticipated Discharge: > 48 hours
Subjective/Interval History
-
Date of Service: May 18, 2024
No new complains.
AFVSS
Doing well post op
Objective Data
-
Labs:
Laboratory Results
05/18/24
04:32
WBC 11.0 H
Hgb 8.8 L
Hct 28.0 L
Plt Count 114 L
Sodium 134 L
Potassium 3.6
Chloride 97 L
Carbon Dioxide 30
BUN 29 H
Creatinine 3.3 H
Glucose 131 H
Calcium 7.0 L
Total Bilirubin 0.6
AST 15 L
ALT < 10
Alkaline Phosphatase 270 H
Vital Signs:
Vital Signs
Temp Pulse Resp BP Pulse Ox
98.0 F 69 14 118/41 100
05/18/24 03:34 05/18/24 06:00 05/18/24 06:00 05/18/24 06:00 05/18/24 06:00
I&O
05/17/24 05/18/24 05/19/24
06:59 06:59 06:59
Intake Total 990 / 990
Output Total 410 / 410 150 / 150
Balance 580 / 580 -150 / -150
Review of Systems
-
History Source: Patient
Constitutional: Reports No Symptoms
Respiratory: Reports No Symptoms
Cardiac: Reports No Symptoms
Abdomen/GI: Reports No Symptoms
Genitourinary: Reports No Symptoms
Physical Exam
-
General: Comfortable and Appears Chronically Ill
Respiratory: Non Labored Respirations; Negative Accessory Resp Muscle Use
Cardiac: Regular Rhythm and S1/S2; Negative Murmur, Rub or Gallop
GI: Soft and Other (dressing intact. Daren drain with ssg)
Musculoskeletal: Edema, Left Upper Extrem
Skin: Warm and Dry; Negative Rash
Neuro: Awake, Alert and Oriented
Psych: Calm and Depressed
Data Reviewed
-
Labs: Labs Reviewed by me, Discussed with Physician and Discussed with Patient
--- NOTE | 2024-05-18 07:40 | PN.DE.MGMTRT ---
Insulin Management
- -
05/18/2024: Diabetes Management Follow up:
Patient brought to ED with change of mental status, found to be in DKA. PMH CAD, HTN, diabetes, CKD 3b, UTI 1 month ago. Prior to admission was taking Tresiba 10 units @ hs. A1C on 03/22/24 was 8.5%--> A1C 9.6% this admission. Cr 6.3, eGFR
8.7-->5.3, eGFR 10.16
Patient was managed on insulin infusion and transitioned off on 04/28 to SQ Insulin.
05/10 Noted for Perforated duodenal ulcer with peritonitis.
Patient extubated, resting in bed .
POD #7 diagnostic lap with perforated duodenal ulcer noted with diffuse peritonitis; 4 L of bilious ascites; procedure converted to open exp lap for abdominal washout, primary repair duodenal bulb ulcer with omental pedicle flap.
05/17 Patient receiving HD this AM, will not adjust lantus today.
05/18 Glucose trended up to 225 ~ 6pm. Will increase daily lantus to 12 units with high corrective.
Will follow for further needed adjustments.
Discussed with patients nurse, if patient appetite improves may require ac novolog. Nurse to text me pre lunch glucose.
Diabetes History
- -
Type of Diabetes: 2 requiring insulin
Pre-Admission Diabetes Regimen
05/17/24 05/18/24
07:36 04:32
Creatinine 4.7 H* 3.3 H
Lab Results
Hemoglobin A1c 9.6 % (4.0-5.6) H 04/27/24 06:06
Insulin Pump Settings
IP Diabetes Regimen
05/17/24 05/17/24 05/17/24
07:36 08:40 11:44
Glucose 173 H
POC Glucose 137 H 147 H
05/17/24 05/17/24 05/18/24
17:29 22:10 04:32
Glucose 131 H
POC Glucose 225 H 201 H
Meal type: Lunch
Amount consumed: 100%
Patient Education
--- NOTE | 2024-05-18 07:49 | PHA.VAN.FU ---
Vancomycin Assessment / Plan
- Assessment
Hemodialysis Schedule: MWF
WBC's are: Trending Down
In the past 24 hrs, patient has been: Afebrile
- Dosing Plan
Continue: to dose by level with HD consideration
- Monitoring Plan
Random Level: 12/13 am
- Follow Up
Pharmacy will continue to follow.
Vancomycin Follow UP
- -
Patient Age: 83
Patient Sex: Male
Vancomycin Day #: 7
Indication: Gi / Intra-Abdominal
Requesting Provider: Dr Wright
Pertinent Antimicrobial Allergies:
clopidogrel
Height / Weight:
Height 5 ft 6 in
Actual Weight 63.9 kg
Pertinent Past Medical History: neurogenic bladder, chronic valverde; ESRD on HD
- Vital Signs / Lab Results
Temp Pulse Resp BP Pulse Ox
98.0 F 69 14 118/41 100
05/18/24 03:34 05/18/24 06:00 05/18/24 06:00 05/18/24 06:00 05/18/24 06:00
Lab Results - Hematology
05/16/24 05/18/24
03:46 04:32
WBC 11.8 H 11.0 H
Lab Results - Chemistry
05/16/24 05/17/24 05/18/24
03:46 07:36 04:32
BUN 43 H 55 H 29 H
Creatinine 3.6 H 4.7 H* 3.3 H
Estimated Creat Clear 14 11 16
Albumin 2.0 L
Microbiology Results
05/11/24 10:20 Wound Culture - Final
Abdomen Enterococcus faecium
Gram Stain - Final
05/11/24 10:20 Anaerobic Culture - Final
Fluid NO ANAEROBES ISOLATED
Therapeutic Drug Monitoring
Random Vancomycin 15.4 ug/ml 05/17/24 07:36
[2024-05-18 08:15] LABS: Glucose - Point of Care 125 mg/dl (70-99)
[2024-05-18] MEDS: MIRALAX PO (08:31)
[2024-05-18] MEDS: NOVOLOG FLEXPEN-HIGH RESISTANCE 1 UNITS SC (08:46)
[2024-05-18] MEDS: NSS (PRESERVATIVE FREE) 10 ML IV (08:47)
[2024-05-18] MEDS: HEPARIN 5000 UNITS SC ×2 (08:47→20:40)
[2024-05-18] MEDS: PROTONIX IV 40 MG IV (08:47)
--- NOTE | 2024-05-18 09:10 | W.PN.NEPH.PH ---
Today's Communication / Plan
-
HD tomorrow
Assessment/Plan
-
Assessment
Hypertension
ARISTEO/ESRD
DKA
Metabolic acidosis
Lactic acidosis
Hyperkalemia
Hyponatremia
azotemia
Neurogenic bladder with bilat hydro
Coronary artery disease
E faecalis urosepsis
Plan:
ARISTEO is likely due to combination of neurogenic bladder in setting of severe DKA now on HD support will call ESRD
HD tomorrow
abx per ID
-
-
Date of Service: May 18, 2024
CC / HPI / ROS
-
Chief Complaint:
ARISTEO
History of Present Illness:
ARISTEO/Cr now on dialysis support
tolerated HD yestserday
BP stable
Dx Lap; Exploratory laparotomy abdominal washout, primary repair duodenal bulb ulcer with omental pedicle flap 05/11
CT abd shows bilateral hydro and bladder distension 05/05
hgb 8.8
no significant UOP from valverde
no fever
Review of Systems:
no fevers
no abd pain
Labs
-
Labs:
WBC 11.0 10^3/uL (4.8-10.8) H 05/18/24 04:32
RBC 3.05 10^6/uL (4.70-6.10) L 05/18/24 04:32
Hgb 8.8 g/dL (13.0-18.0) L 05/18/24 04:32
Hct 28.0 % (39.0-52.0) L 05/18/24 04:32
Plt Count 114 10^3/uL (130-400) L 05/18/24 04:32
Sodium 134 mmol/L (135-145) L 05/18/24 04:32
Potassium 3.6 mmol/L (3.5-5.1) 05/18/24 04:32
Chloride 97 mmol/L (98-107) L 05/18/24 04:32
Carbon Dioxide 30 mmol/L (22-30) 05/18/24 04:32
BUN 29 mg/dl (9-20) H 05/18/24 04:32
Creatinine 3.3 mg/dL (0.7-1.3) H 05/18/24 04:32
eGFR 17.93 05/18/24 04:32
Glucose 131 mg/dl (70-99) H 05/18/24 04:32
Calcium 7.0 mg/dl (8.4-10.2) L 05/18/24 04:32
Phosphorus 3.8 mg/dl (2.5-4.5) 05/13/24 04:53
Albumin 2.0 g/dl (3.5-5.0) L 05/18/24 04:32
Physical Exam
-
Vital Signs:
Vital Signs
Temp Pulse Resp BP Pulse Ox
97.5 F 69 14 118/41 100
05/18/24 08:00 05/18/24 06:00 05/18/24 06:00 05/18/24 06:00 05/18/24 06:00
Cardiovascular:: Regular rate and rhythm
Respiratory:: Bilateral: Coarse
Lung Excursion:: Normal
Abdomen:: Nontender and Soft
Bowel Sounds:: Normal
Extremity Edema:: None: Bilateral:
--- NOTE | 2024-05-18 09:18 | W.PN.GS2 ---
Today's Communication / Plan
-
`
Assessment / Plan
-
Assessment: 83-year-old male who presented initially in DKA with ARISTEO and urosepsis.
POD #7 exploratory laparotomy, primary repair duodenal bulb ulcer with omental pedicle flap.
AFVSS
MEREDITH with clear outputs
Returning GI function
Hemoglobin 8 8 -no signs of active GI blood loss -continue to monitor
Plan:
Diabetic diet/low residue as tolerated with supplements
protonix BID x 1 month post op
only need to empty MEREDITH every 8hrs - likely will remove tomorrow 05/19
start heparin for VTEp - hgb stable
PT/OT
Rosenthal as per urology
ID following for ABX recommendations
Subjective Data
-
Date of Service: May 18, 2024
pt seen and examined
Sleeping but awoke with stimulation
Denies abdominal pain
Bowels moving
Objective Data
-
Intake and Output
05/17/24 05/18/24 05/19/24
06:59 06:59 06:59
Intake Total 990 / 990
Output Total 410 / 410 150 / 150
Balance 580 / 580 -150 / -150
Intake:
Oral fluids 830 / 830
IV piggybacks 160 / 160
Output:
Drain Output (Total) 410 / 410 135 / 135
Right Abdomen Alfie-Biswas 410 / 410 135 / 135
Urine, Rosenthal 0 / 0 15 15
Vital Signs
Temp Pulse Resp BP Pulse Ox
97.5 F 69 14 118/41 100
05/18/24 08:00 05/18/24 06:00 05/18/24 06:00 05/18/24 06:00 05/18/24 06:00
Lab Results
05/18/24 04:32
05/18/24 04:32
Calcium 7.0 mg/dl (8.4-10.2) L 05/18/24 04:32
Phosphorus 3.8 mg/dl (2.5-4.5) 05/13/24 04:53
Magnesium 2.4 mg/dl (1.6-2.3) H 05/16/24 03:46
Total Bilirubin 0.6 mg/dl (0.2-1.3) 05/18/24 04:32
AST 15 U/L (17-59) L 05/18/24 04:32
ALT < 10 U/L (0-50) 05/18/24 04:32
Alkaline Phosphatase 270 U/L (38-126) H 05/18/24 04:32
Total Protein 4.7 g/dl (6.3-8.2) L 05/18/24 04:32
Albumin 2.0 g/dl (3.5-5.0) L 05/18/24 04:32
Physical Exam
-
NAD AAO
ABD: Soft, nondistended, nontender on palpation
Midline laparotomy incision with open areas between saad. Clean. No erythema. No significant drainage.
MEREDITH straw-colored clear fluid
[2024-05-18] MEDS: LANTUS 0.12 UNITS SC (09:51)
--- NOTE | 2024-05-18 10:38 | PTCARENOTE ---
pt wakes to name. oriented to self and place. states no pain or sob. abd dressing in place c/d/i. manisha to bulb suction draining serous. cw hd cath in place. valverde in place care done.
--- NOTE | 2024-05-18 10:54 | W.PN.ID1 ---
Date of Service
Date of Service: May 18, 2024
Today's Communication
Today is last day of Vancomycin.
ID will sign ogg. Call prn.
Assessment / Plan
# Perforated duodenal ulcer with peritonitis
- 05/12/24 s/p abd washout, repair of duodenal ulcer
- OR gram stain: GPC in pairs; cx Enterococcus faecium, resistant to ampicillin, sensitive to Vancomycin
- Completed Zosyn (7 days)
-Completing IV Vancomycin (d7 of 7) for E. faecium
# s/p Septic shock due to above
# Leukocytosis trending down.
- Continue to monitor.
# s/p recent UGI bleed
# s/p Blood loss anemia
- s/p EGD: large duodenal ulcer with clots
# ARISTEO on CKD now HD dependent
# s/p Klebsiella complicated UTI with bacteremia
# Severe b/l hydroureter/hydronephrosis
# right renal subcapsular hematoma vs seroma vs urinoma
# Atonic bladder with chronic valverde
- pt declined percutaneous nephrostomy.
Per IR left hydro somewhat improved with CBI, valverde decompression and perc neph unlikely to help with renal function.
- Completed 14d of abx through 05/10/24.
ID will sign off. Call prn.
Chief Complaint
-: Other (Bowel perforation)
Subjective / Review of Systems
Feels well.
Vital Signs / Physical Exam
Vital Signs
Vital Signs
Temp Pulse Resp BP Pulse Ox
97.5 F 65 12 121/46 100
05/18/24 08:00 05/18/24 10:01 05/18/24 10:01 05/18/24 10:01 05/18/24 10:01
Physical Exam
Constitutional: No Acute Distress and Comfortable
Cardiovascular: Regular Rate and S1/S2
Gastrointestinal: Soft, Non Tender and Non Distended
Neurological: AO x 3
Objective Data
Lab Data
Lab Results
05/18/24 04:32
PT 16.6 Sec (11.4-14.6) H 05/10/24 07:46
INR 1.29 05/10/24 07:46
APTT 35.0 Sec (23.4-35.0) 05/10/24 07:46
Estimated Creat Clear 16 ml/min 05/18/24 04:32
Lactic Acid 0.7 mmol/L (0.7-2.0) 04/28/24 12:05
Total Bilirubin 0.6 mg/dl (0.2-1.3) 05/18/24 04:32
AST 15 U/L (17-59) L 05/18/24 04:32
ALT < 10 U/L (0-50) 05/18/24 04:32
Alkaline Phosphatase 270 U/L (38-126) H 05/18/24 04:32
Most recent labs reviewed.
Micro Results:
05/11/24 10:20 Wound Culture - Final
Abdomen Enterococcus faecium
Gram Stain - Final
05/11/24 10:20 Anaerobic Culture - Final
Fluid NO ANAEROBES ISOLATED
05/12/24 10:42 MRSA Screen - Final
Nose No Methicillin Resistant Staphylococcus aureus isolated.
05/04/24 13:55 Urine Culture - Final
Urine NO GROWTH
04/29/24 09:09 Blood Culture - Final
Blood/Venous No Growth - Final Report
04/27/24 14:16 Blood Culture - Final
Blood/Venous No Growth - Final Report
04/26/24 15:46 Urine Culture - Final
Urine Klebsiella pneumoniae
04/26/24 19:21 Blood Culture - Final
Blood/Venous Klebsiella pneumoniae
Gram Stain - Final
04/26/24 15:02 Blood Culture - Final
Blood/Venous Klebsiella pneumoniae
Gram Stain - Final
04/27/24 Renal US: Bilateral hydronephrosis, moderate left and mild right.
05/04/24 CT a/p wo IV contrast: Severe bilateral hydroureter. No obstructing radiopaque stones are noted. Possible subcapsular right renal fluid collection. Limited evaluation without IV contrast. Renal masses and masses of the collecting system
and bladder cannot be excluded without IV contrast. Mild prostate hypertrophy.
05/07/24 CTa/p: 1. Negative for active gastrointestinal hemorrhage. As above, there is gastric and duodenal mucosal hyperenhancement, but no active bleeding is identified. Patient's known duodenal ulcer is not well seen at CT.
2. Persistent moderate left hydronephrosis and persistent bilateral hydroureter. As above, there is abnormal appearance of the right kidney with subcapsular collection which nearly completely surrounds the kidney. There are associated compressive
changes of the right kidney with diminished enhancement and misshapen cortex. There is mild prominence of the right renal collecting system, no marked hydronephrosis. Collection shows greater than simple fluid attenuation and could represent old
hematoma/seroma. Urinoma is also a diagnostic consideration. Presence or absence of superimposed infection cannot be determined by this examination. 3. Valverde catheter in position within decompressed urinary bladder. Diffuse marked urinary bladder
wall thickening related to either chronic outlet obstruction or neurogenic bladder.
05/09/24 CT a/p: Several loops of small bowel in the left abdomen with moderate circumferential wall thickening. Moderate abdominopelvic ascites. Progressed. Moderate bilateral pleural effusions.. Progressed bilaterally. Moderate left lower lobe
consolidation. Stable. Mild right lower lobe consolidation. Stable. Probably atelectasis. Moderate subcapsular right perinephric fluid collection. Differential diagnosis includes hematoma, seroma and less likely infection. Stable. Associated stable
compressive effects on the renal parenchyma. Addendum: Small bowel loops in the left hemiabdomen with wall thickening and a few small scattered foci of gas that appear to be centered within the small bowel wall raising concern for pneumatosis and
ischemic enteritis.
05/11/24 CXR: The endotracheal tube is in satisfactory position. There are moderate bilateral pleural effusions with associated compressive atelectasis at the retrocardiac left lung base
[2024-05-18 13:25] LABS: Glucose - Point of Care 277 mg/dl (70-99)
[2024-05-18] MEDS: NOVOLOG FLEXPEN-HIGH RESISTANCE 7 UNITS SC (13:31)
[2024-05-18] MEDS: TYLENOL ORAL SOLUTION 650 MG PO (14:15)
[2024-05-18 15:34] LABS: Hematocrit 29.7 % (39.0-52.0); Hemoglobin 9.3 g/dL (13.0-18.0)
[2024-05-18 17:19] LABS: Glucose - Point of Care 157 mg/dl (70-99)
[2024-05-18] MEDS: NOVOLOG FLEXPEN-HIGH RESISTANCE 2 UNITS SC (17:52)
--- NOTE | 2024-05-18 20:30 | PTCARENOTE ---
Patient received from ICU via wheelchair. He was assisted to bed with assist x 1. Son at the bedside. They were oriented to room and surroundings. Tele NSR with 1 degree AV Block. HRR Generalized anasarca x2. Breath Sounds are decreased at
the bases. Abdomen is round and distended. Rosenthal draining small amount cloudy yellow urine. MEREDITH with serous drainage. For HD in am.
[2024-05-18] MEDS: PROTONIX 40 MG PO (20:40)
[2024-05-18 21:39] LABS: Glucose - Point of Care 211 mg/dl (70-99)
[2024-05-18] MEDS: MELATONIN 5 MG PO (22:12)
[2024-05-19] VITALS (7 sets, daily range): BP systolic 136–161; BP diastolic 46–67; BMI 23.0
--- NOTE | 2024-05-19 07:00 | PN.DE.MGMTRT ---
Insulin Management
- -
05/19/2024: Diabetes Management Follow up:
Patient brought to ED with change of mental status, found to be in DKA. PMH CAD, HTN, diabetes, CKD 3b, UTI 1 month ago. Prior to admission was taking Tresiba 10 units @ hs. A1C on 03/22/24 was 8.5%--> A1C 9.6% this admission. Cr 6.3, eGFR
8.7-->5.3, eGFR 10.16
Patient was managed on insulin infusion and transitioned off on 04/28 to SQ Insulin.
05/10 Noted for Perforated duodenal ulcer with peritonitis.
Patient awakens easily, but doses back to sleep quickly.
POD #8 diagnostic lap with perforated duodenal ulcer noted with diffuse peritonitis; 4 L of bilious ascites; procedure converted to open exp lap for abdominal washout, primary repair duodenal bulb ulcer with omental pedicle flap.
05/18 Cr 3.3 eGFR 17.99. Glucose trended up to 225 ~ 6pm. Will increase daily lantus to 12 units with high corrective.
05/19 Appetite improving, glucose pre meal 125 to 277, will add 3 units novolog AC, decrease corrective from high to moderate and continue lantus 12 units in AM
Will follow for further needed adjustments.
Discussed with patients nurse.
Diabetes History
- -
Type of Diabetes: 2 requiring insulin
Pre-Admission Diabetes Regimen
Lab Results
Hemoglobin A1c 9.6 % (4.0-5.6) H 04/27/24 06:06
Insulin Pump Settings
IP Diabetes Regimen
05/18/24 05/18/24 05/18/24
08:04 13:13 17:08
POC Glucose 125 H 277 H 157 H
05/18/24
21:38
POC Glucose 211 H
Patient Education
[2024-05-19 07:41] LABS: Glucose - Point of Care 197 mg/dl (70-99)
[2024-05-19 08:19] LABS: Hematocrit 29.6 % (39.0-52.0); Hemoglobin 9.6 g/dL (13.0-18.0)
[2024-05-19 08:35] LABS: Blood Urea Nitrogen 41 mg/dl (9-20); Calcium 6.8 mg/dl (8.4-10.2); Carbon Dioxide 29 mmol/L (22-30); Chloride 97 mmol/L (98-107); Estimated Creatinine Clearance 11 ml/min; Glucose 147 mg/dl (70-99); Potassium 3.5 mmol/L (3.5-5.1); Sodium 132 mmol/L (135-145); eGFR 12.04
--- NOTE | 2024-05-19 08:37 | W.PN.GS2 ---
Today's Communication / Plan
-
`
Assessment / Plan
-
Assessment: 83-year-old male who presented initially in DKA with ARISTEO and urosepsis.
POD #8 exploratory laparotomy, primary repair duodenal bulb ulcer with omental pedicle flap.
AFVSS
MEREDITH removed
Updated/spoke with via phone today 05/19/2024
Plan: Continue diabetic diet/low residue as tolerated with supplements
protonix BID x 1 month post op then daily (converted to p.o. 05/18/2024)
Finished course of antibiotics
Okay to resume therapeutic anticoagulation from postoperative general surgery standpoint
PT/OT
Rosenthal as per urology
Subjective Data
-
Date of Service: May 19, 2024
Patient seen and examined.
More alert and interactive this morning than any previous
Patient's called in during our evaluation and we spoke as well.
Patient states he is depressed
Denies significant abdominal pain
No nausea and ate well yesterday
Moving bowels daily
Objective Data
-
Intake and Output
05/18/24 05/19/24 05/20/24
06:59 06:59 06:59
Intake Total 240 / 240
Output Total 150 / 150 1045 / 1045
Balance -150 / -150 -805 / -805
Intake:
Oral fluids 240 / 240
Output:
Drain Output (Total) 135 / 135 445 / 445
Right Abdomen Alfie-Biswas 135 / 135 445 / 445
Urine, Rosenthal 15 15 600 / 600
Vital Signs
Temp Pulse Resp BP Pulse Ox
98.3 F 67 16 136/63 97
05/19/24 07:30 05/19/24 07:30 05/19/24 07:30 05/19/24 07:30 05/19/24 07:30
Lab Results
05/19/24 07:56
05/19/24 07:56
Calcium 6.8 mg/dl (8.4-10.2) L* 05/19/24 07:56
Phosphorus 3.8 mg/dl (2.5-4.5) 05/13/24 04:53
Magnesium 2.4 mg/dl (1.6-2.3) H 05/16/24 03:46
Total Bilirubin 0.6 mg/dl (0.2-1.3) 05/18/24 04:32
AST 15 U/L (17-59) L 05/18/24 04:32
ALT < 10 U/L (0-50) 05/18/24 04:32
Alkaline Phosphatase 270 U/L (38-126) H 05/18/24 04:32
Total Protein 4.7 g/dl (6.3-8.2) L 05/18/24 04:32
Albumin 2.0 g/dl (3.5-5.0) L 05/18/24 04:32
Physical Exam
-
NAD AAOx3
ABD: Softly protuberant but not distended. Nontender on palpation.
Midline laparotomy incision saad and small opening between. No significant drainage. No erythema.
MEREDITH with clear serous straw-colored output
[2024-05-19 08:45] LABS: Vancomycin Random 15.4 ug/ml
[2024-05-19] MEDS: MIRALAX PO (08:59)
[2024-05-19] MEDS: PROTONIX 40 MG PO ×2 (08:59→21:50)
[2024-05-19] MEDS: HEPARIN 5000 UNITS SC (08:59)
--- NOTE | 2024-05-19 09:12 | W.PN.HOSP.TC ---
Addendum entered and electronically signed by Valdemar Ellis MD 05/19/24 13:29:
Seen and examined by me independently in collaboration with the medical records clerk.
Lab data and imaging data reviewed.
Addendum as below :
Tolerating diet.
Afebrile. Hemodynamically stable. Oxygenating well on room air.
Off of antibiotics.
Tolerating hemodialysis.
H&H stable so we will restart IV heparin for anticoagulation for new onset of atrial fibrillation in the right upper extremity DVT. Follow H&H and for any bleeding closely.
PT OT eval.
DC planning
Original Note:
Today's Communication/Plan
-
MEREDITH removed
Continue diabetic diet
Dialysis today
Start heparin drip; plan to transition to eliquis 2.5mg BID
Assessment / Plan
Assessment / Plan
83-year-old male with known past medical history of essential hypertension currently on multiple drugs, insulin-dependent diabetes, neurogenic/atonic bladder with chronic Valverde catheter, coronary artery disease/SC 3 years ago s/p cardiac stenting
and currently on prasugrel and CKD 3B presented with his due to confusion and lethargy for few days. Hb dropped after started on eliquis for new onset a fib.
#UGIB
#PUD
# Perforated duodenal ulcer with peritonitis
-unclear if it is related to eliquis use since he was on prasugrel before
-Status post 8 units of PRBC total this hospital stay
-Developed dark maroon stools after being started on Eliquis last week
-EGD showed nonbleeding peptic ulcer and a large duodenal ulcer with clot adherent
-per GI hold anticoagulants; cardio recommend to start single agent eliquis when ok by GI
-POD #6 Perforated duodenal bulb ulcer
-s/p Exploratory laparotomy abdominal washout,
-MEREDITH removed
-Peritonitis; Continue PPI; protonix bid for 1 month post op per surgery
-Tolerating Diabetic diet/low residue with supplements
-Completed course of Vanco
-abdominal fluid culture +enterococcus faecium
-Hb stable; no signs of active bleeding.
-Okay to resume therapeutic anticoagulation
#Sepsis due to CAUTI - POA
septic shock due to above
#Neurogenic bladder with chronic valverde catheter
-urine culture showed Klebsiella pneumonia
-appreciate urology recs-continue valverde
-Will need outpatient follow-up with urology
-hold finasteride, tamsulosin; continue with Valverde at discharge
-completed course of Vanco
#DVT Right UE
-d/c picc line on RIght UE
-Repeat ultrasound today
- on heparin sc for dvt
#New onset ESRD
#H/O CKD 3B
-Has been initiated on HD every M/W/ with nephrology here; HD today
-Had tunneled HD cath placed for long-term dialysis access; Right UE swelling, US no dvt
-Recent CT showed ongoing obstructive uropathy, now s/p Valverde catheter
-Trend daily BMP, continue with dialysis as scheduled
-Will need follow-up at discharge with nephrology and urology
#New onset Atrial fibrillation
-Was already on rate controlling agent with home carvedilol
-Was started on Eliquis here though currently on hold for UGIB as above
-cardio recommend to start single agent eliquis when ok by GI
#Type 2 DM
-Home medications include Lantus, NovoLog, Tresiba; previously on Farxiga
-Had severe hyperglycemia on arrival, suspected to be HHS, now improved
-Blood glucose currently stable on ssc insulin
#CAD s/p PCI
-Had PCI in 2021; Home meds include high intensity statin, beta-elsie, prasugrel
-Due to occurrence of new onset AF, prasugrel was transition to Eliquis
-Eliquis currently on hold due to GI bleeding as above
#Essential HTN
-Home medications include carvedilol, amlodipine
-No known history of hypertensive systemic diseases
#HLD
-hold statin
#Elevated LFTs
-Likely secondary to infection/sepsis, reduced perfusion
#Toxic metabolic encephalopathy
-Likely multifactorial with sepsis, possible HHS/severe hyperglycemia
Code status: DNR
DVT prophylaxis: SCDs, heparin sc
Anticipated Discharge: 24 - 48 hours
Subjective/Interval History
-
Date of Service: May 19, 2024
no new complaints. AFVSS
Objective Data
-
Labs:
Laboratory Results
05/19/24
07:56
Hgb 9.6 L
Hct 29.6 L
Sodium 132 L
Potassium 3.5
Chloride 97 L
Carbon Dioxide 29
BUN 41 H
Creatinine 4.6 H*
Glucose 147 H
Calcium 6.8 L*
Vital Signs:
Vital Signs
Temp Pulse Resp BP Pulse Ox
98.3 F 67 16 136/63 97
05/19/24 07:30 05/19/24 07:30 05/19/24 07:30 05/19/24 07:30 05/19/24 07:30
I&O
05/18/24 05/19/24 05/20/24
06:59 06:59 06:59
Intake Total 240 / 240
Output Total 150 / 150 1045 / 1045
Balance -150 / -150 -805 / -805
Review of Systems
-
History Source: Patient
Constitutional: Reports No Symptoms
Respiratory: Reports No Symptoms
Cardiac: Reports No Symptoms
Abdomen/GI: Reports No Symptoms
Genitourinary: Reports No Symptoms
Physical Exam
-
General: Comfortable and Appears Chronically Ill
Respiratory: Non Labored Respirations; Negative Accessory Resp Muscle Use
Cardiac: Regular Rhythm and S1/S2; Negative Murmur, Rub or Gallop
GI: Soft and Other (dressing intact. Daren drain with ssg)
Musculoskeletal: Edema, Left Upper Extrem
Skin: Warm and Dry; Negative Rash
Neuro: Awake, Alert and Oriented
Psych: Calm and Depressed
Data Reviewed
-
Labs: Labs Reviewed by me, Discussed with Physician and Discussed with Patient
--- NOTE | 2024-05-19 09:17 | W.PN.URO.CBU ---
Today's Communication / Plan
-
no gu changes
Assessment / Plan
-
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
Klebsiella urosepsis and bacteremia
Significant pyuria secondary to cUTI - resolved
Malpositioned catheter w/ suboptimal drainage - resolved
Bilateral hydroureteronephrosis
Right subcapsular fluid collection
s/p ex lap and bowel resection/repair
pt now dialysis dependent
cath flushes easily with no hematuria or evid of debris/obstruction
continue valverde for now as clinical status clarifies
will follow
Diagnosis
-
Date of Service: May 19, 2024
-
Patient Diagnosis:
Post Op Day:
Patient Diagnosis:
Post Op Day:
Patient Diagnosis:
Post Op Day:
Patient Diagnosis:
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
Klebsiella urosepsis/bacteremia
Significant pyuria secondary to cUTI
Bilateral hydroureteronephrosis is now resolved as valverde draining free of debris
s/p ex lap- repair of bowel perf
Subjective
-
depressed but improving
Objective
-
Vital Signs
Temp Pulse Resp BP Pulse Ox
98.3 F 67 16 136/63 97
05/19/24 07:30 05/19/24 07:30 05/19/24 07:30 05/19/24 07:30 05/19/24 07:30
Intake and Output
05/18/24 05/19/24 05/20/24
06:59 06:59 06:59
Intake Total 240 / 240
Output Total 150 / 150 1045 / 1045
Balance -150 / -150 -805 / -805
Intake:
Oral fluids 240 / 240
Output:
Drain Output (Total) 135 / 135 445 / 445
Right Abdomen Alfie-Biswas 135 / 135 445 / 445
Urine, Valverde 600 / 600
Laboratory Results
05/19/24 07:56
05/19/24 07:56
Review of Systems
-
: Difficulty Voiding
Physical Exam
-
General - well developed, well nourished, no acute distress
Chest - clear bilaterally
Abdomen - soft, non-tender, positive bowel sounds, no CVAT, no incisional pain or distention
Genitalia - normal
Rectal - normal
Skin - warm & dry with no rash
Neuro - AOx3, no motor deficits
Extremities - no clubbing, no cyanosis, no edema
Incision - clean, dry
Dressing - clean, dry, intact
Care Review
Data Reviewed
Discussed with: Nursing
[2024-05-19] MEDS: NOVOLOG FLEXPEN 3 UNITS SC ×2 (09:36→13:32)
[2024-05-19] MEDS: NOVOLOG FLEXPEN-MODERATE RESISTANCE 1 UNITS SC (09:36)
[2024-05-19] MEDS: LANTUS 0.12 UNITS SC (09:37)
[2024-05-19] MEDS: RETACRIT 6000 UNITS IV (09:40)
--- NOTE | 2024-05-19 10:37 | W.PN.NEPH.HD ---
Assessment
-
Patient seen on HD
sbp stable at 148 at current u/f
Progress Note - Hemodialysis
-
Date of Service: May 19, 2024
Duration: 30 minutes and 3 hours
Potassium Bath: 3
Calcium Bath: 2.5
Opti-Dialyzer: 160
Ultrafiltration: Other (1kg)
Blood Flow: 400
Dialysate Flow: 600
Heparin: none
EPO: 6000
[2024-05-19] MEDS: HEPARIN 2000 UNITS INTRACATH (11:18)
[2024-05-19 12:30] LABS: Hematocrit 31.2 % (39.0-52.0); Hemoglobin 10.1 g/dL (13.0-18.0); Mean Corp Hgb Conc. 32.4 g/dL (33.0-37.0); Mean Corpuscular Hgb 29.1 pg (27.0-31.0); Mean Corpuscular Volume 89.9 fL (80.0-94.0); Platelet Count 105 10^3/uL (130-400); Red Blood Cell Count 3.47 10^6/uL (4.70-6.10); Red Cell Dist. Width 15.6 % (11.5-14.5); White Blood Cell Count 14.7 10^3/uL (4.8-10.8)
[2024-05-19 12:35] LABS: APTT 33.1 Sec (23.4-35.0)
[2024-05-19 13:21] LABS: Glucose - Point of Care 104 mg/dl (70-99)
[2024-05-19] MEDS: NOVOLOG FLEXPEN-MODERATE RESISTANCE SC ×2 (13:27→17:25)
[2024-05-19] MEDS: HEPARIN 25000 UNITS/250 ML IV (13:33)
--- NOTE | 2024-05-19 15:09 | CM ---
Reviewed the chart notes and spoke with the patient and his spouse at the bedside. Patient's MEREDITH removed. Patient anticipates being discharged to [facility] when medically stable with on-site HD beds. CM continues to be available to
patient/family and is monitoring medical plan for needs at discharge.
Plan: Discharge to [facility] when medically stable. No precert required.
[2024-05-19 16:30] LABS: Hepatitis B Surface Antigen Negative (Negative)
[2024-05-19 17:25] LABS: Glucose - Point of Care 78 mg/dl (70-99)
[2024-05-19] MEDS: NOVOLOG FLEXPEN SC (17:27)
[2024-05-19 21:33] LABS: Glucose - Point of Care 186 mg/dl (70-99)
[2024-05-19] MEDS: MELATONIN 5 MG PO (21:50)
[2024-05-19 22:07] LABS: APTT 70.6 Sec (23.4-35.0)
[2024-05-20 03:07] VITALS: BP 144/60
[2024-05-20 05:14] VITALS: BMI 22.8
[2024-05-20 05:16] LABS: APTT 85.4 Sec (23.4-35.0)
[2024-05-20 05:53] LABS: ALT (SGPT) < 10 U/L (0-50); AST (SGOT) 15 U/L (17-59); Albumin 2.2 g/dl (3.5-5.0); Alkaline Phosphatase 238 U/L (38-126); Blood Urea Nitrogen 21 mg/dl (9-20); Calcium 6.9 mg/dl (8.4-10.2); Carbon Dioxide 28 mmol/L (22-30); Chloride 100 mmol/L (98-107); Estimated Creatinine Clearance 16 ml/min; Glucose 99 mg/dl (70-99); Potassium 3.3 mmol/L (3.5-5.1); Sodium 135 mmol/L (135-145); Total Bilirubin 0.4 mg/dl (0.2-1.3); Total Protein 5.2 g/dl (6.3-8.2); eGFR 17.93
--- NOTE | 2024-05-20 06:03 | PTCARENOTE ---
Addendum entered by Nguyen Graves RN 05/20/24 06:23:
Oxana red, calcium gluconate ordered. awaiting pharmacy
Original Note:
0600 Calcium 6.9, TT sent to notify SENIOR SSIS DEVELOPER.
[2024-05-20 07:26] VITALS: BP 123/62
[2024-05-20 07:29] LABS: Glucose - Point of Care 114 mg/dl (70-99)
[2024-05-20] MEDS: NOVOLOG FLEXPEN-MODERATE RESISTANCE SC ×3 (08:16→16:55)
[2024-05-20] MEDS: CALCIUM GLUCONATE 100 IV (09:22)
[2024-05-20] MEDS: NOVOLOG FLEXPEN 3 UNITS SC ×2 (09:24→12:43)
[2024-05-20] MEDS: MIRALAX PO (09:25)
[2024-05-20] MEDS: NSS 250 IV (09:42)
[2024-05-20] MEDS: LANTUS 0.12 UNITS SC (09:42)
[2024-05-20] MEDS: PROTONIX 40 MG PO ×2 (09:43→21:24)
--- NOTE | 2024-05-20 10:29 | W.PN.HOSP.TC ---
Today's Communication/Plan
-
CW current medical tx
DC planning
Assessment / Plan
Assessment / Plan
83-year-old male with known past medical history of essential hypertension currently on multiple drugs, insulin-dependent diabetes, neurogenic/atonic bladder with chronic Valverde catheter, coronary artery disease/[place] 3 years ago s/p cardiac stenting
and currently on prasugrel and CKD 3B presented with his due to confusion and lethargy for few days. Hb dropped after started on eliquis for new onset a fib.
#UGIB
#PUD
# Perforated duodenal ulcer with peritonitis
-unclear if it is related to eliquis use since he was on prasugrel before
-Status post 8 units of PRBC total this hospital stay
-Developed dark maroon stools after being started on Eliquis last week
-EGD showed nonbleeding peptic ulcer and a large duodenal ulcer with clot adherent
-per GI hold anticoagulants; cardio recommend to start single agent eliquis when ok by GI
-POD #7 Perforated duodenal bulb ulcer
-s/p Exploratory laparotomy abdominal washout,
-MEREDITH removed
-Peritonitis; Continue PPI; protonix bid for 1 month post op per surgery
-Tolerating Diabetic diet/low residue with supplements
-Completed course of Vanco
-abdominal fluid culture +enterococcus faecium
-Hb stable; no signs of active bleeding.
- resumed therapeutic anticoagulation with IV heparin -follow HH and for signs of bleeding
#Sepsis due to CAUTI - POA
septic shock due to above
#Neurogenic bladder with chronic valverde catheter
-urine culture showed Klebsiella pneumonia
-appreciate urology recs-continue valverde
-Will need outpatient follow-up with urology
-hold finasteride, tamsulosin; continue with Valverde at discharge
-completed course of Vanco
#DVT Right UE
-d/c picc line on RIght UE
-Repeat ultrasound ACUTE OCCLUSIVE DEEP VENOUS THROMBOSIS in the right brachial vein which appears unchanged from 05/15/2024.
- on AC now for afib
#New onset ESRD
#H/O CKD 3B
-Has been initiated on HD every M// with nephrology here; cw HD per renal
-Had tunneled HD cath placed for long-term dialysis access; Right UE swelling, US no dvt
-Recent CT showed ongoing obstructive uropathy, now s/p Valverde catheter
-Will need follow-up at discharge with nephrology and urology
#New onset Atrial fibrillation
-Was already on rate controlling agent with home carvedilol
-Was started on Eliquis here though currently on hold for UGIB as above
-cardio recommend to start single agent eliquis when ok by GI
- With stable HH , AC IV heparin started
#Type 2 DM
-Home medications include Lantus, NovoLog, Tresiba; previously on Farxiga
-Had severe hyperglycemia on arrival, suspected to be HHS, now improved
-Blood glucose currently stable on ssc insulin
#CAD s/p PCI
-Had PCI in 2021; Home meds include high intensity statin, beta-elsie, prasugrel
-Due to occurrence of new onset AF, prasugrel was transition to Eliquis
-Eliquis currently on hold due to GI bleeding as above
#Essential HTN
-Home medications include carvedilol, amlodipine
-No known history of hypertensive systemic diseases
#HLD
-hold statin
#Elevated LFTs
-Likely secondary to infection/sepsis, reduced perfusion
#Toxic metabolic encephalopathy-resolved
-Likely multifactorial with sepsis, possible HHS/severe hyperglycemia
# Cataract of right eye - some vision changes per pt. Unclear if related to HD and lens fluid shifts. Will follow.
Code status: DNR
DVT prophylaxis:Heparin
Anticipated Discharge: 24 - 48 hours
Subjective/Interval History
-
Date of Service: May 20, 2024
Tolerating diet.
Denies nausea vomiting.
Denies abdominal pain.
Denies shortness of breath or chest pain. On room air.
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 His right eye lately has been trouble with cataracts and decreased vision. He is awaiting to have cataract surgery. He sees little more trouble with his vision. Able to read with his glasses. No
pain. No visual field deficit. No floaters.
Objective Data
-
Labs:
Laboratory Results
05/20/24 05/20/24
04:47 10:47
APTT 85.4 H Pending
Sodium 135
Potassium 3.3 L
Chloride 100
Carbon Dioxide 28
BUN 21 H
Creatinine 3.3 H
Glucose 99
Calcium 6.9 L*
Total Bilirubin 0.4
AST 15 L
ALT < 10
Alkaline Phosphatase 238 H
Vital Signs:
Vital Signs
Temp Pulse Resp BP Pulse Ox
98.7 F 85 16 123/62 96
05/20/24 07:26 05/20/24 07:26 05/20/24 07:26 05/20/24 07:26 05/20/24 07:26
I&O
05/19/24 05/20/24 05/21/24
06:59 06:59 06:59
Intake Total 240 / 240 702.75 / 702.75
Output Total 1045 / 1045 100 / 100
Balance -805 / -805 602.75 / 602.75
Review of Systems
-
Constitutional: Denies Fever
EENT: Denies Sore Throat
Abdomen/GI: Denies Diarrhea
Neuro: Denies Dizzy
Physical Exam
-
General: No Apparent Distress
HEENT: Moist Mucous Membranes and Other (Right pupil reactive to light, no nystagmus, no corneal erythema)
Respiratory: Clear to Auscultation
Cardiac: Regular Rhythm and S1/S2
GI: Soft
Neuro: AO x 3
Psych: Calm
Data Reviewed
-
Labs: Labs Reviewed by me
--- NOTE | 2024-05-20 10:37 | W.PN.NEPH.PH ---
Addendum entered and electronically signed by Dg Champion, 05/20/24 10:43:
Calcium and potassium repleted
Original Note:
Today's Communication / Plan
-
Next dialysis will be Wednesday
Assessment/Plan
-
Assessment
Hypertension
ARISTEO/ESRD
DKA
Metabolic acidosis
Lactic acidosis
Hyperkalemia
Hyponatremia
azotemia
Neurogenic bladder with bilat hydro
Coronary artery disease
E faecalis urosepsis
Duodenal ulcer perforation
Plan:
ARISTEO is likely due to combination of neurogenic bladder in setting of severe DKA now on HD support will call ESRD
HD tolerated yesterday next dialysis will be on Wednesday
H&H stable
abx per ID
-
-
Date of Service: May 20, 2024
CC / HPI / ROS
-
Chief Complaint:
ARISTEO
History of Present Illness:
ARISTEO/Cr now on dialysis support
tolerated HD yestserday
BP stable
Dx Lap; Exploratory laparotomy abdominal washout, primary repair duodenal bulb ulcer with omental pedicle flap 05/11
CT abd shows bilateral hydro and bladder distension 05/05
hgb 10.1
no significant UOP from valverde
no fever
Review of Systems:
no fevers
no abd pain
Labs
-
Labs:
WBC 14.7 10^3/uL (4.8-10.8) H 05/19/24 12:05
RBC 3.47 10^6/uL (4.70-6.10) L 05/19/24 12:05
Hgb 10.1 g/dL (13.0-18.0) L 05/19/24 12:05
Hct 31.2 % (39.0-52.0) L 05/19/24 12:05
Plt Count 105 10^3/uL (130-400) L 05/19/24 12:05
Sodium 135 mmol/L (135-145) 05/20/24 04:47
Potassium 3.3 mmol/L (3.5-5.1) L 05/20/24 04:47
Chloride 100 mmol/L (98-107) 05/20/24 04:47
Carbon Dioxide 28 mmol/L (22-30) 05/20/24 04:47
BUN 21 mg/dl (9-20) H 05/20/24 04:47
Creatinine 3.3 mg/dL (0.7-1.3) H 05/20/24 04:47
eGFR 17.93 05/20/24 04:47
Glucose 99 mg/dl (70-99) 05/20/24 04:47
Calcium 6.9 mg/dl (8.4-10.2) L* 05/20/24 04:47
Phosphorus 3.8 mg/dl (2.5-4.5) 05/13/24 04:53
Albumin 2.2 g/dl (3.5-5.0) L 05/20/24 04:47
Physical Exam
-
Vital Signs:
Vital Signs
Temp Pulse Resp BP Pulse Ox
98.7 F 85 16 123/62 96
05/20/24 07:26 05/20/24 07:26 05/20/24 07:26 05/20/24 07:26 05/20/24 07:26
Cardiovascular:: Regular rate and rhythm
Respiratory:: Bilateral: Coarse
Lung Excursion:: Normal
Abdomen:: Nontender and Soft
Bowel Sounds:: Normal
Extremity Edema:: None: Bilateral:
[2024-05-20 11:35] LABS: Glucose - Point of Care 92 mg/dl (70-99)
[2024-05-20 11:47] LABS: APTT 25.7 Sec (23.4-35.0)
[2024-05-20] MEDS: KCL 20 MEQ PO (12:39)
--- NOTE | 2024-05-20 14:00 | PTCARENOTE ---
Platelets to re-evaluated by while on Heparin protocol. Will cont to monitor.
[2024-05-20 15:41] VITALS: BP 150/44
[2024-05-20] MEDS: HEPARIN 25000 UNITS/250 ML IV (15:41)
[2024-05-20 16:35] LABS: Hematocrit 28.9 % (39.0-52.0); Hemoglobin 9.1 g/dL (13.0-18.0); Mean Corp Hgb Conc. 31.5 g/dL (33.0-37.0); Mean Platelet Volume 10.8 fL (7.4-10.4); Platelet Count 138 10^3/uL (130-400); Red Blood Cell Count 3.14 10^6/uL (4.70-6.10); Red Cell Dist. Width 16.4 % (11.5-14.5)
[2024-05-20 16:39] LABS: Glucose - Point of Care 91 mg/dl (70-99)
[2024-05-20] MEDS: NOVOLOG FLEXPEN SC (16:55)
[2024-05-20 19:44] VITALS: BP 146/54
[2024-05-20] MEDS: MELATONIN 5 MG PO (21:24)
[2024-05-20 21:28] LABS: Glucose - Point of Care 196 mg/dl (70-99)
[2024-05-20 21:50] LABS: APTT 86.4 Sec (23.4-35.0)
[2024-05-20 23:00] VITALS: BP 149/61
[2024-05-21 04:56] LABS: Ionized Calcium 1.04 mMOL/L (1.15-1.33)
[2024-05-21 04:57] LABS: Hematocrit 29.3 % (39.0-52.0); Hemoglobin 9.5 g/dL (13.0-18.0); Mean Corp Hgb Conc. 32.4 g/dL (33.0-37.0); Mean Corpuscular Hgb 29.3 pg (27.0-31.0); Mean Corpuscular Volume 90.4 fL (80.0-94.0); Mean Platelet Volume 10.9 fL (7.4-10.4); Platelet Count 154 10^3/uL (130-400); Red Blood Cell Count 3.24 10^6/uL (4.70-6.10); Red Cell Dist. Width 16.5 % (11.5-14.5); White Blood Cell Count 17.4 10^3/uL (4.8-10.8)
[2024-05-21 05:10] LABS: APTT 43.1 Sec (23.4-35.0)
[2024-05-21 05:20] LABS: Carbon Dioxide 26 mmol/L (22-30); Chloride 99 mmol/L (98-107); Potassium 3.6 mmol/L (3.5-5.1); Sodium 135 mmol/L (135-145)
[2024-05-21 05:28] VITALS: BMI 23.2
[2024-05-21 07:10] VITALS: BP 134/66
[2024-05-21 07:20] LABS: Glucose - Point of Care 97 mg/dl (70-99)
[2024-05-21] MEDS: MIRALAX PO (08:07)
[2024-05-21] MEDS: LANTUS 0.12 UNITS SC (08:08)
[2024-05-21] MEDS: PROTONIX 40 MG PO ×2 (08:08→20:19)
[2024-05-21] MEDS: NOVOLOG FLEXPEN-MODERATE RESISTANCE SC ×2 (08:08→11:51)
[2024-05-21] MEDS: NOVOLOG FLEXPEN 3 UNITS SC ×2 (08:09→17:33)
[2024-05-21 08:14] LABS: % Basophils 0.6 % (0-2); % Eosinophils 1.5 % (0-6); % Immature Granulocytes 1.1 % (0-0.5); % Lymphocytes 6.2 % (20.5-51.1); % Monocytes 3.3 % (1.7-9.3); % Neutrophils 87.3 % (42.2-75.2); Absolute Basophils 0.1 10^3/uL (0-0.2); Absolute Eosinophils 0.3 10^3/uL (0-0.7); Absolute Immature Granulocytes 0.2 10^3/uL (0-0.05); Absolute Lymphocytes 1.1 10^3/uL (1.2-3.4); Absolute Monocytes 0.6 10^3/uL (0.1-0.6); Absolute Neutrophils 14.7 10^3/uL (1.4-6.5); Nucleated Red Blood Cells % 0 % (-)
--- NOTE | 2024-05-21 10:14 | W.PN.NEPH.PH ---
Today's Communication / Plan
-
Dialysis tomorrow and high calcium bath,pth was 103
Assessment/Plan
-
Assessment
Hypertension
ARISTEO/ESRD
DKA
Metabolic acidosis
Lactic acidosis
Hyperkalemia
Hyponatremia
azotemia
Neurogenic bladder with bilat hydro
Coronary artery disease
E faecalis urosepsis
Duodenal ulcer perforation
Plan:
ARISTEO is likely due to combination of neurogenic bladder in setting of severe DKA now on HD support will call ESRD
HD for tomorrow vitamin D2 50,000 units p.o. every [address], PTH was 103
EWELINA given for persistent anemia
Using higher calcium bath for low ionized calcium,
Discharged planning in process, to be sent to [facility] for rehab and dialysis once medically stable
-
-
Date of Service: May 21, 2024
CC / HPI / ROS
-
Chief Complaint:
ARISTEO
History of Present Illness:
ARISTEO/Cr now on dialysis support Wednesday
Hemodynamically stable
Dx Lap; Exploratory laparotomy abdominal washout, primary repair duodenal bulb ulcer with omental pedicle flap 05/11
CT abd shows bilateral hydro and bladder distension 05/05
WBC count elevated
Review of Systems:
no fevers
no abd pain
Rosenthal
Labs
-
Labs:
WBC 17.4 10^3/uL (4.8-10.8) H 05/21/24 04:45
RBC 3.24 10^6/uL (4.70-6.10) L 05/21/24 04:45
Hgb 9.5 g/dL (13.0-18.0) L 05/21/24 04:45
Hct 29.3 % (39.0-52.0) L 05/21/24 04:45
Plt Count 154 10^3/uL (130-400) 05/21/24 04:45
Sodium 135 mmol/L (135-145) 05/21/24 04:45
Potassium 3.6 mmol/L (3.5-5.1) 05/21/24 04:45
Chloride 99 mmol/L (98-107) 05/21/24 04:45
Carbon Dioxide 26 mmol/L (22-30) 05/21/24 04:45
BUN 21 mg/dl (9-20) H 05/20/24 04:47
Creatinine 3.3 mg/dL (0.7-1.3) H 05/20/24 04:47
eGFR 17.93 05/20/24 04:47
Glucose 99 mg/dl (70-99) 05/20/24 04:47
Calcium 6.9 mg/dl (8.4-10.2) L* 05/20/24 04:47
Phosphorus 3.8 mg/dl (2.5-4.5) 05/13/24 04:53
Albumin 2.2 g/dl (3.5-5.0) L 05/20/24 04:47
Physical Exam
-
Vital Signs:
Vital Signs
Temp Pulse Resp BP Pulse Ox
98.4 F 72 17 134/66 98
05/21/24 07:10 05/21/24 07:10 05/21/24 07:10 05/21/24 07:10 05/21/24 07:10
Cardiovascular:: Regular rate and rhythm
Respiratory:: Bilateral: Coarse
Lung Excursion:: Normal
Abdomen:: Nontender and Soft
Bowel Sounds:: Normal
Extremity Edema:: None: Bilateral:
Rosenthal Catheter: Yes
--- NOTE | 2024-05-21 10:52 | W.PN.GS2 ---
Today's Communication / Plan
-
Continue diet
Assessment / Plan
-
Assessment: 83-year-old male who presented initially in DKA with ARISTEO and urosepsis.
POD #10 exploratory laparotomy, primary repair duodenal bulb ulcer with omental pedicle flap.
AFVSS
Tolerating diet, minimal post op pain
Good bowel recovery
Rising leukocytosis, stable h/h.
Plan: Continue diabetic diet/low residue as tolerated with supplements
Protonix BID x 1 month post op then daily (converted to p.o. 05/18/2024)
infectious work up as per primary team, in light of rising WBC will check repeat CT abd/pelvis to r/o abscess
PT/OT
Rosenthal as per urology
On therapeutic AC
Subjective Data
-
Date of Service: May 21, 2024
Patient seen and examined at bedside. Denies n/v. tolerating diet. Passed a large BM with flatus yesterday. Minimal abdominal pain.
Objective Data
-
Intake and Output
05/20/24 05/21/24 05/22/24
06:59 06:59 06:59
Intake Total 702.75 / 702.75 590 / 590
Output Total 100 / 100 300 / 300
Balance 602.75 / 602.75 290 / 290
Intake:
Oral fluids 600 / 600 240 / 240
IV fluids (Total) 102.75 / 102.75 250 / 250
IV piggybacks 100 / 100
Output:
Urine, Rosenthal 100 / 100 300 / 300
Vital Signs
Temp Pulse Resp BP Pulse Ox
98.4 F 72 17 134/66 98
05/21/24 07:10 05/21/24 07:10 05/21/24 07:10 05/21/24 07:10 05/21/24 07:10
Lab Results
05/21/24 04:45
05/21/24 04:45
Calcium 6.9 mg/dl (8.4-10.2) L* 05/20/24 04:47
Phosphorus 3.8 mg/dl (2.5-4.5) 05/13/24 04:53
Magnesium 2.4 mg/dl (1.6-2.3) H 05/16/24 03:46
Total Bilirubin 0.4 mg/dl (0.2-1.3) 05/20/24 04:47
AST 15 U/L (17-59) L 05/20/24 04:47
ALT < 10 U/L (0-50) 05/20/24 04:47
Alkaline Phosphatase 238 U/L (38-126) H 05/20/24 04:47
Total Protein 5.2 g/dl (6.3-8.2) L 05/20/24 04:47
Albumin 2.2 g/dl (3.5-5.0) L 05/20/24 04:47
Physical Exam
-
NAD AAOx3
ABD: Soft, Nondistended, Nontender on palpation.
Midline laparotomy incision saad and small opening between. No significant drainage. No erythema.
MEREDITH site with small scab
[2024-05-21 11:17] VITALS: BP 124/55
[2024-05-21 11:22] LABS: Glucose - Point of Care 109 mg/dl (70-99)
[2024-05-21] MEDS: OMNIPAQUE 50 ML PO (12:16)
[2024-05-21] MEDS: NOVOLOG FLEXPEN SC (12:17)
[2024-05-21 12:27] LABS: APTT 108.9 Sec (23.4-35.0)
--- NOTE | 2024-05-21 13:34 | W.PN.HOSP.TC ---
Today's Communication/Plan
-
CT A/P
Repeat UA/CX
Follow WBC
Assessment / Plan
Assessment / Plan
83-year-old male with known past medical history of essential hypertension currently on multiple drugs, insulin-dependent diabetes, neurogenic/atonic bladder with chronic Valverde catheter, coronary artery disease/[place] 3 years ago s/p cardiac stenting
and currently on prasugrel and CKD 3B presented with his due to confusion and lethargy for few days. Hb dropped after started on eliquis for new onset a fib.
#UGIB
# PUD
# Perforated duodenal ulcer with peritonitis
-unclear if it is related to eliquis use since he was on prasugrel before
-Status post 8 units of PRBC total this hospital stay
-Developed dark maroon stools after being started on Eliquis last week
-EGD showed nonbleeding peptic ulcer and a large duodenal ulcer with clot adherent
-per GI hold anticoagulants; cardio recommend to start single agent eliquis when ok by GI
-POD #8 Perforated duodenal bulb ulcer
-s/p Exploratory laparotomy abdominal washout,
-MEREDITH removed
-Peritonitis; Continue PPI; protonix bid for 1 month post op per surgery
-Tolerating Diabetic diet/low residue with supplements
-Completed course of Vanco
-abdominal fluid culture +enterococcus faecium
-Hb stable; no signs of active bleeding.
- resumed therapeutic anticoagulation with IV heparin -follow HH and for signs of bleeding.HH stable.
- CT A/P today due to raising WBC
#Sepsis due to CAUTI - POA
septic shock due to above
#Neurogenic bladder with chronic valverde catheter
-urine culture showed Klebsiella pneumonia
-appreciate urology recs-continue valverde
-Will need outpatient follow-up with urology
-hold finasteride, tamsulosin; continue with Valverde at discharge
-completed course of Vanco
- With rasising WBC will reculture Urine.
#DVT Right UE
-d/c picc line on RIght UE
-Repeat ultrasound ACUTE OCCLUSIVE DEEP VENOUS THROMBOSIS in the right brachial vein which appears unchanged from 05/15/2024.
- on AC now for afib
#New onset ESRD
#H/O CKD 3B
-Has been initiated on HD every M/W/F with nephrology here; cw HD per renal
-Had tunneled HD cath placed for long-term dialysis access; Right UE swelling, US no dvt
-Recent CT showed ongoing obstructive uropathy, now s/p Valverde catheter
-Will need follow-up at discharge with nephrology and urology
#New onset Atrial fibrillation
-Was already on rate controlling agent with home carvedilol
-Was started on Eliquis here though currently on hold for UGIB as above
-cardio recommend to start single agent eliquis when ok by GI
- With stable HH , AC IV heparin started
- In SR
#Type 2 DM
-Home medications include Lantus, NovoLog, Tresiba; previously on Farxiga
-Had severe hyperglycemia on arrival, suspected to be HHS, now improved
-Blood glucose currently stable on ssc insulin
- Diabetic RN following
#CAD s/p PCI
-Had PCI in 2021; Home meds include high intensity statin, beta-elsie, prasugrel
-Due to occurrence of new onset AF, prasugrel was transition to Eliquis
-Eliquis currently on hold due to GI bleeding as above
#Essential HTN
-Home medications include carvedilol, amlodipine
-No known history of hypertensive systemic diseases
#HLD
-hold statin
#Elevated LFTs
-Likely secondary to infection/sepsis, reduced perfusion
#Toxic metabolic encephalopathy-resolved
-Likely multifactorial with sepsis, possible HHS/severe hyperglycemia
# Cataract of right eye - some vision changes per pt. Unclear if related to HD and lens fluid shifts. Will follow.
Code status: DNR
DVT prophylaxis:Heparin
Anticipated Discharge: > 48 hours
Subjective/Interval History
-
Date of Service: May 21, 2024
Patient is voicing no specific complaints.
White count is worsening but he says no nausea vomiting or abdominal pain. He remembers having a bowel movement yesterday but no diarrhea.
Denies any sore throat, cough or shortness of breath.
No chest pain.
No joint pains. He has a Valverde catheter in.
Objective Data
-
Labs:
Laboratory Results
05/21/24 05/21/24
04:45 12:06
WBC 17.4 H
Hgb 9.5 L
Hct 29.3 L
Plt Count 154
APTT 43.1 H 108.9 H
Sodium 135
Potassium 3.6
Chloride 99
Carbon Dioxide 26
Vital Signs:
Vital Signs
Temp Pulse Resp BP Pulse Ox
98.2 F 72 17 124/55 98
05/21/24 11:17 05/21/24 11:17 05/21/24 11:17 05/21/24 11:17 05/21/24 11:17
I&O
05/20/24 05/21/24 05/22/24
06:59 06:59 06:59
Intake Total 702.75 / 702.75 590 / 590
Output Total 100 / 100 300 / 300
Balance 602.75 / 602.75 290 / 290
Review of Systems
-
Constitutional: Denies Fever or Chills
EENT: Denies Sore Throat
Respiratory: Denies Trouble Breathing
Cardiac: Denies Chest Pain
Abdomen/GI: Denies Abdominal Pain, Nausea or Vomiting
Neuro: Denies Dizzy
Physical Exam
-
General: Comfortable
Respiratory: Non Labored Respirations; Negative Accessory Resp Muscle Use
Cardiac: Regular Rhythm and S1/S2; Negative Tachycardic
GI: Soft, Nontender, Nondistended and Normal Bowel Sounds
Neuro: AO x 3
Psych: Calm; Negative Confused
Data Reviewed
-
Labs: Labs Reviewed by me
[2024-05-21 14:14] LABS: Urine Albumin 2+ (Neg - Trace); Urine Bilirubin Negative (Negative); Urine Character Very Cloudy (Clear); Urine Color Yellow; Urine Glucose Negative (Negative); Urine Ketone Negative (Negative); Urine Leukocyte 2+ (Negative); Urine Nitrite Negative (Negative); Urine Occult Blood 4+ (Negative); Urine Specific Gravity 1.005 (<1.030); Urine Urobilinogen Negative (Neg - 1+)
[2024-05-21 14:23] LABS: Urine Squamous Cell 0-2 /LPF (Few)
[2024-05-21 14:24] LABS: Urine Bacteria Many (Negative); Urine Red Blood Cell 30-40 /HPF (0-2); Urine White Cell >100 /HPF (0-5); Urine Yeast Moderate (Negative)
[2024-05-21 14:59] VITALS: BP 177/43
[2024-05-21] MEDS: HEPARIN 25000 UNITS/250 ML IV (16:08)
[2024-05-21 16:46] LABS: Glucose - Point of Care 190 mg/dl (70-99)
[2024-05-21] MEDS: NOVOLOG FLEXPEN-MODERATE RESISTANCE 1 UNITS SC (17:32)
[2024-05-21] MEDS: NORVASC 10 MG PO (17:36)
[2024-05-21 19:15] VITALS: BP 152/53
[2024-05-21] MEDS: COREG 12.5 MG PO (20:19)
[2024-05-21 20:29] LABS: APTT 111.7 Sec (23.4-35.0)
[2024-05-21] MEDS: MELATONIN 5 MG PO (21:47)
[2024-05-21 21:48] LABS: Glucose - Point of Care 139 mg/dl (70-99)
[2024-05-21 23:56] VITALS: BP 146/55
[2024-05-22] VITALS (7 sets, daily range): BP systolic 135–172; BP diastolic 42–72; PULSE 74; BMI 23.0
[2024-05-22 03:37] LABS: APTT 88.2 Sec (23.4-35.0)
--- NOTE | 2024-05-22 07:00 | PN.DE.MGMTRT ---
Insulin Management
- -
05/22/2024: Diabetes Management Follow up:
Patient brought to ED with change of mental status, found to be in DKA. PMH CAD, HTN, diabetes, CKD 3b, UTI 1 month ago. Prior to admission was taking Tresiba 10 units @ hs. A1C on 03/22/24 was 8.5%--> A1C 9.6% this admission. Cr 6.3, eGFR
8.7-->5.3, eGFR 10.16
Patient was managed on insulin infusion and transitioned off on 04/28 to SQ Insulin.
05/10 Noted for Perforated duodenal ulcer with peritonitis.
Patient awakens easily, but doses back to sleep quickly.
POD #11 diagnostic lap with perforated duodenal ulcer noted with diffuse peritonitis; 4 L of bilious ascites; procedure converted to open exp lap for abdominal washout, primary repair duodenal bulb ulcer with omental pedicle flap.
05/22 Yesterday glucose 97 to 197. Patient receiving 12 units lantus in AM with 3 units novolog. Will make no change to regimen.
Will follow for further needed adjustments.
Discussed with patients nurse.
Diabetes History
- -
Type of Diabetes: 2 requiring insulin
Pre-Admission Diabetes Regimen
Lab Results
Hemoglobin A1c 9.6 % (4.0-5.6) H 04/27/24 06:06
Insulin Pump Settings
IP Diabetes Regimen
05/21/24 05/21/24 05/21/24
07:09 11:19 16:42
POC Glucose 97 109 H 190 H
05/21/24
21:47
POC Glucose 139 H
Meal type: Dinner
Meal type: Lunch
Meal type: Breakfast
Amount consumed: 100%
Amount consumed: 100%
Patient Education
[2024-05-22 07:19] LABS: Glucose - Point of Care 90 mg/dl (70-99)
[2024-05-22] MEDS: NOVOLOG FLEXPEN-MODERATE RESISTANCE SC ×3 (07:27→16:33)
[2024-05-22] MEDS: COREG PO (07:31)
[2024-05-22] MEDS: LANTUS 0.12 UNITS SC (07:33)
[2024-05-22] MEDS: MIRALAX PO (07:34)
[2024-05-22] MEDS: NORVASC PO (07:34)
[2024-05-22] MEDS: PROTONIX 40 MG PO ×2 (07:35→20:27)
[2024-05-22] MEDS: NOVOLOG FLEXPEN SC ×2 (07:36→11:50)
[2024-05-22 08:35] LABS: Hematocrit 27.1 % (39.0-52.0); Hemoglobin 8.8 g/dL (13.0-18.0); Mean Corp Hgb Conc. 32.5 g/dL (33.0-37.0); Mean Corpuscular Hgb 28.9 pg (27.0-31.0); Mean Corpuscular Volume 89.1 fL (80.0-94.0); Mean Platelet Volume 10.7 fL (7.4-10.4); Platelet Count 163 10^3/uL (130-400); Red Blood Cell Count 3.04 10^6/uL (4.70-6.10); Red Cell Dist. Width 17.1 % (11.5-14.5); White Blood Cell Count 13.3 10^3/uL (4.8-10.8)
--- NOTE | 2024-05-22 09:39 | W.PN.GS2 ---
Today's Communication / Plan
-
Stable from a GI/general surgery perspective.
Dispo planning
Assessment / Plan
-
Assessment: 83-year-old male who presented initially in DKA with ARISTEO and urosepsis.
POD #11 exploratory laparotomy, primary repair duodenal bulb ulcer with omental pedicle flap. Doing well, expected postoperative course. Leukocytosis improved. And CT scan fairly unremarkable.
Plan: Continue diabetic diet/low residue as tolerated with supplements
Protonix BID x 1 month post op then daily (converted to p.o. 05/18/2024)
infectious work up as per primary team, no abscess on CT
PT/OT
Rosenthal as per urology
On therapeutic AC
Time Spent
Total Time Spent with Patient (in minutes): 20
Subjective Data
-
Date of Service: May 22, 2024
Interval Events:
No acute events overnight. Slept well. Pain Controlled. Denies Nausea/Vomiting, +bowel function. Tolerating diet.
Objective Data
-
Intake and Output
05/21/24 05/22/24 05/23/24
06:59 06:59 06:59
Intake Total 590 / 590 720 / 720
Output Total 300 / 300 280 / 280
Balance 290 / 290 440 / 440
Intake:
Oral fluids 240 / 240 720 / 720
IV fluids (Total) 250 / 250
IV piggybacks 100 / 100
Output:
Urine, Rosenthal 300 / 300 200 / 200
Urine, Voided 80 / 80
Vital Signs
Temp Pulse Resp BP Pulse Ox
98.4 F 88 17 141/65 98
05/22/24 07:17 05/22/24 07:17 05/22/24 07:17 05/22/24 07:17 05/22/24 07:17
Lab Results
05/22/24 08:21
Calcium 6.9 mg/dl (8.4-10.2) L* 05/20/24 04:47
Phosphorus 3.8 mg/dl (2.5-4.5) 05/13/24 04:53
Magnesium 2.4 mg/dl (1.6-2.3) H 05/16/24 03:46
Total Bilirubin 0.4 mg/dl (0.2-1.3) 05/20/24 04:47
AST 15 U/L (17-59) L 05/20/24 04:47
ALT < 10 U/L (0-50) 05/20/24 04:47
Alkaline Phosphatase 238 U/L (38-126) H 05/20/24 04:47
Total Protein 5.2 g/dl (6.3-8.2) L 05/20/24 04:47
Albumin 2.2 g/dl (3.5-5.0) L 05/20/24 04:47
Physical Exam
-
GENERAL/NEURO: Awake, Alert, no distress
CHEST: Unlabored breathing on RA
ABDOMEN: Soft, Non-Tender, Non-Distended, incision clean, opening with intermittent saad in place
[2024-05-22] MEDS: RETACRIT 10000 UNITS IV (09:43)
[2024-05-22 10:31] LABS: APTT 115.9 Sec (23.4-35.0)
[2024-05-22 11:12] LABS: AST (SGOT) 18 U/L (17-59); Albumin 2.2 g/dl (3.5-5.0); Blood Urea Nitrogen 40 mg/dl (9-20); Carbon Dioxide 22 mmol/L (22-30); Chloride 100 mmol/L (98-107); Estimated Creatinine Clearance 9 ml/min; Glucose 88 mg/dl (70-99); Total Protein 5.3 g/dl (6.3-8.2); eGFR 9.51
--- NOTE | 2024-05-22 11:16 | W.PN.NEPH.PH ---
Today's Communication / Plan
-
Dialysis note
Assessment/Plan
-
Assessment
Hypertension
ARISTEO/ESRD
DKA
Metabolic acidosis
Lactic acidosis
Hyperkalemia
Hyponatremia
azotemia
Neurogenic bladder with bilat hydro
Coronary artery disease
E faecalis urosepsis
Duodenal ulcer perforation
Plan:
ARISTEO is likely due to combination of neurogenic bladder in setting of severe DKA now on HD support will call ESRD/continue on MWF schedule
EWELINA given for persistent anemia
Using higher calcium bath for low ionized calcium,
Discharged planning in process, to be sent to [facility] for rehab and dialysis once medically stable
Seen on dialysis today. Tolerating ultrafiltration. Tolerating treatment of the current blood flow rate. The permacat working well
Next plan of treatment will be Wednesday
-
-
Date of Service: May 22, 2024
CC / HPI / ROS
-
Chief Complaint:
ARISTEO
History of Present Illness:
ARISTEO/Cr now on dialysis support Wednesday
Hemodynamically stable
Dx Lap; Exploratory laparotomy abdominal washout, primary repair duodenal bulb ulcer with omental pedicle flap 05/11
CT abd shows bilateral hydro and bladder distension 05/05
WBC count elevated
Review of Systems:
no fevers
no abd pain
Rosenthal
Labs
-
Labs:
WBC 13.3 10^3/uL (4.8-10.8) H 05/22/24 08:21
RBC 3.04 10^6/uL (4.70-6.10) L 05/22/24 08:21
Hgb 8.8 g/dL (13.0-18.0) L 05/22/24 08:21
Hct 27.1 % (39.0-52.0) L 05/22/24 08:21
Plt Count 163 10^3/uL (130-400) 05/22/24 08:21
Chloride 100 mmol/L (98-107) 05/22/24 08:21
Carbon Dioxide 22 mmol/L (22-30) 05/22/24 08:21
BUN 40 mg/dl (9-20) H 05/22/24 08:21
Creatinine 5.6 mg/dL (0.7-1.3) H* 05/22/24 08:21
eGFR 9.51 05/22/24 08:21
Glucose 88 mg/dl (70-99) 05/22/24 08:21
Phosphorus 3.8 mg/dl (2.5-4.5) 05/13/24 04:53
Albumin 2.2 g/dl (3.5-5.0) L 05/22/24 08:21
Physical Exam
-
Vital Signs:
Vital Signs
Temp Pulse Resp BP Pulse Ox
97.8 F 89 17 140/42 98
05/22/24 11:12 05/22/24 11:12 05/22/24 11:12 05/22/24 11:12 05/22/24 11:12
[2024-05-22] MEDS: HEPARIN 2000 UNITS INTRACATH (11:30)
[2024-05-22 11:35] LABS: ALT (SGPT) 10 U/L (0-50); Alkaline Phosphatase 230 U/L (38-126); Calcium 7.3 mg/dl (8.4-10.2); Potassium 3.9 mmol/L (3.5-5.1); Sodium 133 mmol/L (135-145); Total Bilirubin 0.5 mg/dl (0.2-1.3)
[2024-05-22 11:43] LABS: Glucose - Point of Care 72 mg/dl (70-99)
--- NOTE | 2024-05-22 14:03 | CM ---
Patient seen at bedside with physican. Patient stated talk to my she is in charge. Patient confirmed plan to transition to [facility] with HD for further therapy. CM will continue to follow for discharge planning needs.
Plan; SNF
[2024-05-22] MEDS: HEPARIN 25000 UNITS/250 ML IV (14:57)
[2024-05-22 16:24] LABS: Glucose - Point of Care 127 mg/dl (70-99)
--- NOTE | 2024-05-22 17:40 | W.PN.HOSP.TC ---
Addendum entered and electronically signed by Mona De MD 05/22/24 18:12:
I saw and evaluated the patient independently. I reviewed the resident�s note and agree with findings and plan as documented by Dr. Montelongo.
GENERAL: well developed, well nourished, male in no apparent distress (looks like he has lost weight since I last saw him)
HEENT: NC/AT--no O2 requirements
HEART: regular rate and rhythm, +S1, +S2
LUNGS : clear to auscultation bilaterally
ABDOM: soft, nontender, nondistended, + bowel sounds
EXT: no cyanosis, clubbing, or edema
NEUROLOGIC: grossly intact
perforated duodenal ulcer with UGIB ---unclear if it is related to eliquis use since he was on prasugrel before--apprec surgery for repair--POD 9 -- cont PPI 1 month post surgery--tolerating diet--anticoagulation when cleared by GI
septic shock due to CAUTI--chronic valverde cath due to neurogenic bladder--resolved--urine culture with Kleb pneumonia--outpt urology f/u--unclear if truly needs since now on HD
worsening CKD stage 3B--started HD this admission--apprec renal
RUE DVT--s/p PICC--repeat US unchanged from 05/15--on heparin drip--HGB stable--will need conversion to Eliquis if cleared by GI
new onset paroxysmal afib--apprec cards--rate controlled--cont carvedilol, Eliquis when cleared gy GI
essential HTN -- cont meds as able
HLD--statin on hold
DVT proph
code status -- DNR
hopeful d/c to SNF tomorrow...
Original Note:
Today's Communication/Plan
-
.
Assessment / Plan
Assessment / Plan
1. UGIB in the setting of PUD
-Perforated duodenal ulcer with peritonitis
-unclear if it is related to eliquis use since he was on prasugrel before
-Status post 8 units of PRBC total this hospital stay
-Developed dark maroon stools after being started on Eliquis last week
-EGD showed nonbleeding peptic ulcer and a large duodenal ulcer with clot adherent
-per GI hold anticoagulants; cardio recommend to start single agent eliquis when ok by GI
-POD #9 Perforated duodenal bulb ulcer
-s/p Exploratory laparotomy abdominal washout; per GS; pt stable and okay to D/C
-MEREDITH removed
-Peritonitis; Continue PPI; protonix bid for 1 month post op per surgery
-Tolerating Sodium 2g diet
-H/H stable
- CT A/P yesterday due to raising WBC
- Moderate bilateral pleural effusion; similar in size to old
- No evidence of free intraperitoneal air
- possible gastritis
- valvular calcifications
2. Sepsis due to CAUTI - POA (resolved)
- septic shock due to above
3. Neurogenic bladder with chronic valverde catheter
-urine culture showed Klebsiella pneumonia
-appreciate urology recs-continue valverde
-Will need outpatient follow-up with urology
-hold finasteride, tamsulosin; continue with Valverde at discharge
-completed course of Vanco
-WBC elevated yesterday; urine culture ordered; 4+ blood, 2+ LE, >100 WBC, Many Bacteria, Moderate Yeast
3. DVT Right UE
-s/p d/c PICC
-Repeat ultrasound ACUTE OCCLUSIVE DEEP VENOUS THROMBOSIS in the right brachial vein which appears unchanged from 05/15/2024.
-Currently on Heparin
4. New onset ESRD
- H/O CKD 3B
-Has been initiated on HD every M/W/F with nephrology here; cw HD per renal
-Had tunneled HD cath placed for long-term dialysis access; Right UE swelling, US no dvt
-Recent CT showed ongoing obstructive uropathy, now s/p Valverde catheter
-Will need follow-up at discharge with nephrology and urology
5. New onset Atrial fibrillation
-Was already on rate controlling agent with home carvedilol
-Was started on Eliquis here though currently on hold for UGIB as above
-cardio recommend to start single agent eliquis when ok by GI
- With stable HH , AC IV heparin started
6. Type 2 DM
-Home medications include Lantus, NovoLog, Tresiba; previously on Farxiga
-Had severe hyperglycemia on arrival, suspected to be HHS, now improved
-Blood glucose currently stable on ssc insulin
-Diabetic RN following
7. CAD s/p PCI
-Had PCI in 2021; Home meds include high intensity statin, beta-elsie, prasugrel
-Due to occurrence of new onset AF, prasugrel was transition to Eliquis
-Eliquis currently on hold due to GI bleeding as above
8. Essential HTN
-Home medications include carvedilol, amlodipine
-No known history of hypertensive systemic diseases
9. HLD
-hold statin
Code status: DNR
DVT prophylaxis:Heparin
Anticipated Discharge: 24 - 48 hours
Subjective/Interval History
-
Date of Service: May 22, 2024
Patient denies any acute complaints this morning. Specifically denies any GI complaints including abdominal pain, nausea, vomiting.
Objective Data
-
Labs:
Laboratory Results
05/22/24 05/22/24 05/22/24
08:21 09:50 17:22
WBC 13.3 H
Hgb 8.8 L
Hct 27.1 L
Plt Count 163
APTT 115.9 H Pending
Sodium 133 L
Potassium 3.9
Chloride 100
Carbon Dioxide 22
BUN 40 H
Creatinine 5.6 H*
Glucose 88
Calcium 7.3 L
Total Bilirubin 0.5
AST 18
ALT 10
Alkaline Phosphatase 230 H
Vital Signs:
Vital Signs
Temp Pulse Resp BP Pulse Ox
97.7 F 70 17 159/60 98
05/22/24 15:00 05/22/24 15:00 05/22/24 15:00 05/22/24 15:00 05/22/24 15:00
I&O
05/21/24 05/22/24 05/23/24
06:59 06:59 06:59
Intake Total 590 / 590 720 / 720
Output Total 300 / 300 280 / 280
Balance 290 / 290 440 / 440
Review of Systems
-
History Source: Patient
All other systems: Reviewed and negative
Respiratory: Reports No Symptoms
Cardiac: Reports No Symptoms
Abdomen/GI: Reports No Symptoms
Physical Exam
-
General: No Apparent Distress, Comfortable and Conversant
Respiratory: Clear to Auscultation and Non Labored Respirations
Cardiac: Regular Rhythm and S1/S2
GI: Soft and Nontender
Musculoskeletal: No Edema
Skin: Warm and Dry
Neuro: Awake, Alert and Oriented
Psych: Calm
Data Reviewed
-
Labs: Labs Reviewed by me and Discussed with Patient
[2024-05-22] MEDS: NOVOLOG FLEXPEN 3 UNITS SC (17:55)
[2024-05-22 18:06] LABS: APTT 86.2 Sec (23.4-35.0)
[2024-05-22] MEDS: COREG 12.5 MG PO (20:27)
[2024-05-22 21:25] LABS: Glucose - Point of Care 219 mg/dl (70-99)
[2024-05-22] MEDS: MELATONIN 5 MG PO (21:56)
[2024-05-22 23:56] LABS: APTT 67.9 Sec (23.4-35.0)
[2024-05-23 05:03] VITALS: BMI 23.3
[2024-05-23 06:07] LABS: APTT 70.2 Sec (23.4-35.0)
[2024-05-23 06:21] LABS: ALT (SGPT) 11 U/L (0-50); AST (SGOT) 19 U/L (17-59); Alkaline Phosphatase 214 U/L (38-126); Blood Urea Nitrogen 32 mg/dl (9-20); Calcium 7.1 mg/dl (8.4-10.2); Carbon Dioxide 27 mmol/L (22-30); Chloride 98 mmol/L (98-107); Estimated Creatinine Clearance 13 ml/min; Glucose 101 mg/dl (70-99); Potassium 3.9 mmol/L (3.5-5.1); Sodium 133 mmol/L (135-145); Total Bilirubin 0.3 mg/dl (0.2-1.3); eGFR 14.68
[2024-05-23 06:36] LABS: % Basophils 0.6 % (0-2); % Eosinophils 1.4 % (0-6); % Immature Granulocytes 0.7 % (0-0.5); % Lymphocytes 7.9 % (20.5-51.1); % Monocytes 4.7 % (1.7-9.3); % Neutrophils 84.7 % (42.2-75.2); Absolute Basophils 0.1 10^3/uL (0-0.2); Absolute Eosinophils 0.1 10^3/uL (0-0.7); Absolute Immature Granulocytes 0.1 10^3/uL (0-0.05); Absolute Lymphocytes 0.8 10^3/uL (1.2-3.4); Absolute Monocytes 0.5 10^3/uL (0.1-0.6); Absolute Neutrophils 8.3 10^3/uL (1.4-6.5); Hematocrit 24.6 % (39.0-52.0); Hemoglobin 8.1 g/dL (13.0-18.0); Mean Corp Hgb Conc. 32.9 g/dL (33.0-37.0); Mean Corpuscular Hgb 29.3 pg (27.0-31.0); Mean Corpuscular Volume 89.1 fL (80.0-94.0); Mean Platelet Volume 10.6 fL (7.4-10.4); Nucleated Red Blood Cells % 0 % (-); Platelet Count 130 10^3/uL (130-400); Red Blood Cell Count 2.76 10^6/uL (4.70-6.10); Red Cell Dist. Width 17.1 % (11.5-14.5); White Blood Cell Count 9.8 10^3/uL (4.8-10.8)
[2024-05-23 07:25] VITALS: BP 142/37
[2024-05-23 07:59] LABS: Glucose - Point of Care 116 mg/dl (70-99)
--- NOTE | 2024-05-23 08:01 | PN.DE.MGMTRT ---
Insulin Management
- -
05/23/2024: Diabetes Management Follow up:
Patient brought to ED with change of mental status, found to be in DKA. PMH CAD, HTN, diabetes, CKD 3b, UTI 1 month ago. Prior to admission was taking Tresiba 10 units @ hs. A1C 9.6% this admission. Cr 6.3, eGFR 8.7-->5.3, eGFR 10.16
Patient was managed on insulin infusion and transitioned off on 04/28 to SQ Insulin.
05/10 Noted for Perforated duodenal ulcer with peritonitis.
Patient is awake alert and oriented, able to discuss diabetes management changes.
POD #12 diagnostic lap with perforated duodenal ulcer noted with diffuse peritonitis; 4 L of bilious ascites; procedure converted to open exp lap for abdominal washout, primary repair duodenal bulb ulcer with omental pedicle flap.
05/23 Yesterday glucose 72 to 219. Patient receiving 12 units lantus in AM with 3 units novolog AC and low corrective. Will make no change to regimen.
Will follow for further needed adjustments.
Discussed with patients nurse.
Diabetes History
- -
Type of Diabetes: 2 requiring insulin
Pre-Admission Diabetes Regimen
05/22/24 05/23/24
08: 05:28
Creatinine 5.6 H* 3.9 H
Lab Results
Hemoglobin A1c 9.6 % (4.0-5.6) H 04/27/24 06:06
Insulin Pump Settings
IP Diabetes Regimen
05/22/24 05/22/24 05/22/24
08:21 11:40 16:22
Glucose 88
POC Glucose 72 127 H
05/22/24 05/23/24 05/23/24
05:28 07:57
Glucose 101 H
POC Glucose 219 H 116 H
Meal type: Dinner
Meal type: Lunch
Meal type: Breakfast
Amount consumed: 100%
Amount consumed: 100%
Amount consumed: 100%
Patient Education
--- NOTE | 2024-05-23 08:29 | W.PN.GS2 ---
Addendum entered and electronically signed by García Barlow MD 05/23/24 15:23:
Nickolas removed at bedside. Dermis well-healed with good skin integrity, small openings intermittently from prior elizabeth, healthy granulation tissue at base. Steri-Strips were placed for added reinforcement. Follow-up in the general surgery office
in [address] Diaz.
Original Note:
Today's Communication / Plan
-
-- No changes from surgical perspective
-- Please contact surgery prior to DC will remove nickolas.
Assessment / Plan
-
Assessment: 83-year-old male who presented initially in DKA with ARISTEO and urosepsis.
POD #12 exploratory laparotomy, primary repair duodenal bulb ulcer with omental pedicle flap.
Doing well, expected postoperative course. Leukocytosis resolved. And CT scan fairly unremarkable. Please contact surgery prior to DC will remove nickolas.
Plan:
-- Continue diabetic diet/low residue as tolerated with supplements
-- Protonix BID x 1 month post op then daily (converted to p.o. 05/18/2024)
-- PT/OT
-- Rosenthal as per Urology
-- On therapeutic AC
-- Please contact surgery prior to DC will remove nickolas.
Subjective Data
-
Date of Service: May 23, 2024
No complaints or concerns. Denies worsening abdominal pain. No nausea or vomiting. No fevers.
Objective Data
-
Intake and Output
05/22/24 05/23/24 05/24/24
06:59 06:59 06:59
Intake Total 720 / 720 1260 / 1260
Output Total 280 / 280 600 / 600
Balance 440 / 440 660 / 660
Intake:
Oral fluids 720 / 720 1260 / 1260
Output:
Urine, Rosenthal 200 / 200 600 / 600
Urine, Voided 80 / 80
Vital Signs
Temp Pulse Resp BP Pulse Ox
98.3 F 76 14 163/61 97
05/22/24 23:42 05/22/24 23:42 05/22/24 23:42 05/22/24 23:42 05/22/24 23:42
Lab Results
05/23/24 05:28
05/23/24 05:28
Calcium 7.1 mg/dl (8.4-10.2) L 05/23/24 05:28
Phosphorus 3.8 mg/dl (2.5-4.5) 05/13/24 04:53
Magnesium 2.4 mg/dl (1.6-2.3) H 05/16/24 03:46
Total Bilirubin 0.3 mg/dl (0.2-1.3) 05/23/24 05:28
AST 19 U/L (17-59) 05/23/24 05:28
ALT 11 U/L (0-50) 05/23/24 05:28
Alkaline Phosphatase 214 U/L (38-126) H 05/23/24 05:28
Total Protein 5.0 g/dl (6.3-8.2) L 05/23/24 05:28
Albumin 2.0 g/dl (3.5-5.0) L 05/23/24 05:28
Physical Exam
-
Gen: NAD
Abd: soft, NT/ND, non-peritoneal, dressing c/d/i - no erythema, ecchymosis or drainage
[2024-05-23] MEDS: LANTUS 0.12 UNITS SC (08:54)
[2024-05-23] MEDS: NORVASC 10 MG PO (08:55)
[2024-05-23] MEDS: PROTONIX 40 MG PO ×2 (08:56→21:30)
[2024-05-23] MEDS: MIRALAX PO (08:56)
[2024-05-23] MEDS: COREG 12.5 MG PO ×2 (08:56→21:29)
[2024-05-23] MEDS: NOVOLOG FLEXPEN 3 UNITS SC ×3 (08:56→17:55)
[2024-05-23] MEDS: NOVOLOG FLEXPEN-MODERATE RESISTANCE SC (08:57)
[2024-05-23 12:18] LABS: Glucose - Point of Care 184 mg/dl (70-99)
[2024-05-23] MEDS: NOVOLOG FLEXPEN-MODERATE RESISTANCE 1 UNITS SC ×2 (13:15→17:54)
[2024-05-23 13:55] LABS: APTT 41.3 Sec (23.4-35.0)
--- NOTE | 2024-05-23 14:00 | W.PN.NEPH.PH ---
Today's Communication / Plan
-
Okay for discharge from renal standpoint if outpatient set up
Assessment/Plan
-
Assessment
Hypertension
ARISTEO/ESRD
DKA
Metabolic acidosis
Lactic acidosis
Hyperkalemia
Hyponatremia
azotemia
Neurogenic bladder with bilat hydro
Coronary artery disease
E faecalis urosepsis
Duodenal ulcer perforation
Plan:
ARISTEO is likely due to combination of neurogenic bladder in setting of severe DKA now on HD support will call ESRD/continue on MWF schedule
EWELINA given for hemoglobin less than 10
Discharged planning in process, to be sent to [facility] for rehab and dialysis once medically stable
Next plan of treatment will be Wednesday outpatient if discharged today
-
-
Date of Service: May 23, 2024
CC / HPI / ROS
-
Chief Complaint:
ARISTEO
History of Present Illness:
ARISTEO/Cr now on dialysis support Wednesday
Hemodynamically stable
Dx Lap; Exploratory laparotomy abdominal washout, primary repair duodenal bulb ulcer with omental pedicle flap 05/11
CT abd shows bilateral hydro and bladder distension 05/05
Review of Systems:
no fevers
no abd pain
Rosenthal
Labs
-
Labs:
WBC 9.8 10^3/uL (4.8-10.8) 05/23/24 05:28
RBC 2.76 10^6/uL (4.70-6.10) L 05/23/24 05:28
Hgb 8.1 g/dL (13.0-18.0) L 05/23/24 05:28
Hct 24.6 % (39.0-52.0) L 05/23/24 05:28
Plt Count 130 10^3/uL (130-400) D 05/23/24 05:28
Sodium 133 mmol/L (135-145) L 05/23/24 05:28
Potassium 3.9 mmol/L (3.5-5.1) 05/23/24 05:28
Chloride 98 mmol/L (98-107) 05/23/24 05:28
Carbon Dioxide 27 mmol/L (22-30) 05/23/24 05:28
BUN 32 mg/dl (9-20) H 05/23/24 05:28
Creatinine 3.9 mg/dL (0.7-1.3) H 05/23/24 05:28
eGFR 14.68 05/23/24 05:28
Glucose 101 mg/dl (70-99) H 05/23/24 05:28
Calcium 7.1 mg/dl (8.4-10.2) L 05/23/24 05:28
Phosphorus 3.8 mg/dl (2.5-4.5) 05/13/24 04:53
Albumin 2.0 g/dl (3.5-5.0) L 05/23/24 05:28
Physical Exam
-
Vital Signs:
Vital Signs
Temp Pulse Resp BP Pulse Ox
97.9 F 69 17 142/37 94
05/23/24 07:25 05/23/24 08:55 05/23/24 07:25 05/23/24 08:55 05/23/24 07:25
Respiratory:: Bilateral: CTA
Lung Excursion:: Normal
Abdomen:: Soft
Bowel Sounds:: Normal
Extremity Edema:: None: Bilateral:
Rosenthal Catheter: Yes
--- NOTE | 2024-05-23 14:48 | CM ---
Addendum entered by Linnea Colin 05/23/24 18:22:
Facility called to state they were unable to accept patient today. CM updated physician and will update patient .
Original Note:
Patient and seen at bedside with physician, all questions answered and addressed. IMM provided and signed form placed on chart. Patient will need ambulance transportation. Patient flow sheets and hemoglobin to be faxed to [phone].
Patient fax discharge summary to [phone]/fax [phone]. CM will continue to follow for discharge planning needs.
Plan; transfer to SNF today.
[2024-05-23 15:40] VITALS: BP 143/37
--- NOTE | 2024-05-23 16:55 | W.PN.HOSP.TC ---
Addendum entered and electronically signed by Mona De MD 05/23/24 17:29:
I saw and evaluated the patient independently. I reviewed the resident�s note and agree with findings and plan as documented by Dr. Montelongo.
GENERAL: well developed, well nourished, male in no apparent distress (looks like he has lost weight since I last saw him)
HEENT: NC/AT--no O2 requirements
HEART: regular rate and rhythm, +S1, +S2
LUNGS : clear to auscultation bilaterally
ABDOM: soft, nontender, nondistended, + bowel sounds
EXT: no cyanosis, clubbing, or edema
NEUROLOGIC: grossly intact
perforated duodenal ulcer with UGIB ---unclear if it is related to eliquis use since he was on prasugrel before--apprec surgery for repair--POD 12-- cont PPI 1 month post surgery--tolerating diet--anticoagulation with Eliquis restarted
septic shock due to CAUTI--chronic valverde cath due to neurogenic bladder--resolved--urine culture with Kleb pneumonia--outpt urology f/u--unclear if truly needs since now on HD
worsening CKD stage 3B--started HD this admission--apprec renal
RUE DVT--s/p PICC--repeat US unchanged from 05/15--on heparin drip, now to Eliquis--HGB stable
new onset paroxysmal afib--apprec cards--rate controlled--cont carvedilol, Eliquis
essential HTN -- cont meds as able
HLD--restart statin
DVT proph
code status -- DNR
medically clear for discharge
Original Note:
Today's Communication/Plan
-
Patient to be discharged to SNF ([facility]) today. Patient to be seen by Urology, Surgery, PCP at outpatient followup. Heparin, midline discontinued; Eliquis restarted.
Assessment / Plan
Assessment / Plan
1. UGIB in the setting of PUD
-Perforated duodenal ulcer with peritonitis
-unclear if it is related to eliquis use since he was on prasugrel before
-Status post 8 units of PRBC total this hospital stay
-Developed dark maroon stools after being started on Eliquis last week
-EGD showed nonbleeding peptic ulcer and a large duodenal ulcer with clot adherent
-per GI hold anticoagulants; cardio recommend to start single agent eliquis when ok by GI
-POD #9 Perforated duodenal bulb ulcer
-s/p Exploratory laparotomy abdominal washout
-MEREDITH removed
-Peritonitis; Continue PPI; protonix bid for 1 month post op per surgery
-Tolerating Sodium 2g diet
-H/H stable
- CT A/P yesterday due to raising WBC
- Moderate bilateral pleural effusion; similar in size to old
- No evidence of free intraperitoneal air
- possible gastritis
- valvular calcifications
- per GS; pt stable and okay to D/C
2. Sepsis due to CAUTI - POA (resolved)
- septic shock due to above
3. Neurogenic bladder with chronic valverde catheter
-urine culture showed Klebsiella pneumonia
-appreciate urology recs-continue valverde
-Will need outpatient follow-up with urology
-hold finasteride, tamsulosin; continue with Valverde at discharge
-completed course of Vanco
-WBC normal today
3. DVT Right UE
-s/p d/c PICC
-Repeat ultrasound ACUTE OCCLUSIVE DEEP VENOUS THROMBOSIS in the right brachial vein which appears unchanged from 05/15/2024.
-Heparin discontinued, restarted Eliquis, as cleared by Surgery
4. New onset ESRD
- H/O CKD 3B
-Has been initiated on HD every M/W/F with nephrology here; cw HD per renal
-Had tunneled HD cath placed for long-term dialysis access; Right UE swelling, US no dvt
-Recent CT showed ongoing obstructive uropathy, now s/p Valverde catheter
-Will need follow-up at discharge with nephrology and urology
5. New onset Atrial fibrillation
-Was already on rate controlling agent with home carvedilol
-Was started on Eliquis here though currently on hold for UGIB as above
-cardio recommend to start single agent eliquis when ok by GI
- With stable HH. Heparin d/c, restart eliquis outpatient dosing
6. Type 2 DM
-Home medications include Lantus, NovoLog, Tresiba; previously on Farxiga
-Had severe hyperglycemia on arrival, suspected to be HHS, now improved
-Blood glucose currently stable on ssc insulin
-Diabetic RN following
7. CAD s/p PCI
-Had PCI in 2021; Home meds include high intensity statin, beta-elsie, prasugrel
-Due to occurrence of new onset AF, prasugrel was transition to Eliquis
-Eliquis held during admission, restarted for d/c
8. Essential HTN
-Home medications include carvedilol, amlodipine
-No known history of hypertensive systemic diseases
9. HLD
-restart statin
Code status: DNR
Anticipated Discharge: Today
Subjective/Interval History
-
Date of Service: May 23, 2024
Patient seen and examined, resting comfortably in bed, and eating breakfast. Patient has no acute complaints this morning. Specifically denies abdominal pain, nausea, vomiting, diarrhea, loss of appetite. Patient's was seen at bedside as
well in the afternoon. She had multiple questions regarding the patient's pending discharge. After lengthy discussion, patient and patient's agree to discharge to nursing home facility. Of particular concern, was the swelling on the
patient's right upper extremity, white blood cell count, and hemoglobin level. I explained to the patient's white blood cell count and hemoglobin levels have been stable, and in particular SPEP with cell count has returned to normal. With regards
to the patient's swelling over the right upper extremity, explained that it was not erythematous, indurated, or painful, and 2 ultrasounds of the right upper extremity performed in the past week which showed a stable DVT.
Objective Data
-
Labs:
Laboratory Results
05/23/24 05/23/24
05:28 13:07
WBC 9.8
Hgb 8.1 L
Hct 24.6 L
Plt Count 130 D
APTT 70.2 H 41.3 H
Sodium 133 L
Potassium 3.9
Chloride 98
Carbon Dioxide 27
BUN 32 H
Creatinine 3.9 H
Glucose 101 H
Calcium 7.1 L
Total Bilirubin 0.3
AST 19
ALT 11
Alkaline Phosphatase 214 H
Vital Signs:
Vital Signs
Temp Pulse Resp BP Pulse Ox
98.8 F 71 17 143/37 96
05/23/24 15:40 05/23/24 15:40 05/23/24 15:40 05/23/24 15:40 05/23/24 15:40
I&O
05/22/24 05/23/24 05/24/24
06:59 06:59 06:59
Intake Total 720 / 720 1260 / 1260
Output Total 280 / 280 600 / 600
Balance 440 / 440 660 / 660
Review of Systems
-
History Source: Patient
Constitutional: Reports No Symptoms
Respiratory: Reports No Symptoms
Cardiac: Reports No Symptoms
Abdomen/GI: Reports No Symptoms
Musculoskeletal: Reports Edema (RUE)
Neuro: Reports No Symptoms
Physical Exam
-
General: No Apparent Distress, Comfortable, Conversant and Other (Eating Breakfast)
HEENT: Normocephalic and Atraumatic
Respiratory: Clear to Auscultation
Cardiac: Regular Rhythm and S1/S2
GI: Soft, Nontender and Normal Bowel Sounds
Musculoskeletal: Other (No Lower Extremity Edema; there is a small are of swelling on the RUE that is nonerythematous, nonindurated, nontender. )
Skin: Warm and Dry
Neuro: Awake, Alert and Oriented
Psych: Calm
Data Reviewed
-
Labs: Labs Reviewed by me, Discussed with Patient and Discussed with Family
[2024-05-23 17:37] LABS: Glucose - Point of Care 166 mg/dl (70-99)
[2024-05-23 21:27] VITALS: BP 137/44
[2024-05-23] MEDS: ELIQUIS 2.5 MG PO (21:29)
[2024-05-23] MEDS: MELATONIN 5 MG PO (21:30)
[2024-05-23 22:07] LABS: Glucose - Point of Care 70 mg/dl (70-99)
[2024-05-23 23:21] VITALS: BP 124/46
[2024-05-24 02:00] VITALS: BP 121/40
[2024-05-24 04:16] VITALS: BMI 23.1
[2024-05-24 04:23] LABS: Glucose - Point of Care 91 mg/dl (70-99)
--- NOTE | 2024-05-24 07:16 | PN.DE.MGMTRT ---
Insulin Management
- -
05/24/2024: Diabetes Management Follow up:
Patient brought to ED with change of mental status, found to be in DKA. PMH CAD, HTN, diabetes, CKD 3b, UTI 1 month ago. Prior to admission was taking Tresiba 10 units @ hs. A1C 9.6% this admission. Cr 6.3, eGFR 8.7-->5.3, eGFR 10.16
Patient was managed on insulin infusion and transitioned off on 04/28 to SQ Insulin.
05/10 Noted for Perforated duodenal ulcer with peritonitis.
Patient is awake alert and oriented, able to discuss diabetes management changes. Currently receiving dialysis.
POD #13 diagnostic lap with perforated duodenal ulcer noted with diffuse peritonitis; 4 L of bilious ascites; procedure converted to open exp lap for abdominal washout, primary repair duodenal bulb ulcer with omental pedicle flap.
05/24 Yesterday glucose 70 to 184. Patient receiving 12 units lantus in AM with 3 units novolog AC and low corrective. Will make no change to regimen.
Will follow for further needed adjustments. Patient for possible discharge to SNF today.
Discussed with patients nurse.
Diabetes History
- -
Type of Diabetes: 2 requiring insulin
Pre-Admission Diabetes Regimen
Lab Results
Hemoglobin A1c 9.6 % (4.0-5.6) H 04/27/24 06:06
Insulin Pump Settings
IP Diabetes Regimen
05/23/24 05/23/24 05/23/24
07:57 12:16 17:35
POC Glucose 116 H 184 H 166 H
05/23/24 05/24/24
21:59 04:18
POC Glucose 70 91
Meal type: Dinner
Meal type: Lunch
Meal type: Breakfast
Amount consumed: 100%
Amount consumed: 100%
Amount consumed: 100%
Patient Education
[2024-05-24 07:30] VITALS: BP 132/43
[2024-05-24 07:45] LABS: Glucose - Point of Care 87 mg/dl (70-99)
[2024-05-24] MEDS: LANTUS 0.12 UNITS SC (07:47)
[2024-05-24] MEDS: NOVOLOG FLEXPEN-MODERATE RESISTANCE SC ×2 (07:48→12:01)
[2024-05-24] MEDS: NOVOLOG FLEXPEN 3 UNITS SC ×2 (07:48→12:00)
[2024-05-24 09:03] LABS: Hematocrit 25.8 % (39.0-52.0); Hemoglobin 8.2 g/dL (13.0-18.0); Mean Corp Hgb Conc. 31.8 g/dL (33.0-37.0); Mean Corpuscular Hgb 28.5 pg (27.0-31.0); Mean Corpuscular Volume 89.6 fL (80.0-94.0); Mean Platelet Volume 10.2 fL (7.4-10.4); Platelet Count 177 10^3/uL (130-400); Red Blood Cell Count 2.88 10^6/uL (4.70-6.10); Red Cell Dist. Width 16.9 % (11.5-14.5); White Blood Cell Count 10.3 10^3/uL (4.8-10.8)
[2024-05-24] MEDS: RETACRIT 10000 UNITS IV (09:31)
[2024-05-24 09:53] LABS: Blood Urea Nitrogen 44 mg/dl (9-20); Calcium 7.5 mg/dl (8.4-10.2); Carbon Dioxide 25 mmol/L (22-30); Chloride 95 mmol/L (98-107); Estimated Creatinine Clearance 10 ml/min; Glucose 89 mg/dl (70-99); Potassium 4.2 mmol/L (3.5-5.1); Sodium 130 mmol/L (135-145); eGFR 10.39
--- NOTE | 2024-05-24 09:54 | W.PN.NEPH.HD ---
Assessment
-
Patient seen on dialysis
Systolic blood pressure( 168) stable with current UF
For discharge after dialysis
Progress Note - Hemodialysis
-
Date of Service: May 24, 2024
Duration: 30 minutes and 3 hours
Potassium Bath: 3
Calcium Bath: 3
Opti-Dialyzer: 160
Ultrafiltration: EDW
Blood Flow: 400
Dialysate Flow: 600
Heparin: None
EPO: 10,000
--- NOTE | 2024-05-24 10:06 | CM ---
Patient seen at bedside with physicians. Patient for transfer to [facility] with ambulance transportation. CM called to patient and update provided. CM will continue to follow for discharge planning needs.
Plan; transfer to [facility] for rehab and HD.
[2024-05-24 11:36] LABS: Glucose - Point of Care 106 mg/dl (70-99)
[2024-05-24 11:58] VITALS: BP 121/40
[2024-05-24] MEDS: COREG 12.5 MG PO (11:58)
[2024-05-24] MEDS: MIRALAX PO (11:59)
[2024-05-24] MEDS: PROTONIX 40 MG PO (11:59)
[2024-05-24] MEDS: NORVASC 10 MG PO (11:59)
[2024-05-24] MEDS: ELIQUIS 2.5 MG PO (11:59)
--- NOTE | 2024-05-24 13:47 | W.PN.HOSP.TC ---
Addendum entered and electronically signed by Mona De MD 05/24/24 15:27:
pt did not go to SNF last night 05/23/24 as planned--SNF could not take
I saw and evaluated the patient independently. I reviewed the resident�s note and agree with findings and plan as documented by Dr. Montelongo.
GENERAL: well developed, well nourished, male in no apparent distress (looks like he has lost weight since I last saw him)
HEENT: NC/AT--no O2 requirements
HEART: regular rate and rhythm, +S1, +S2
LUNGS : clear to auscultation bilaterally
ABDOM: soft, nontender, nondistended, + bowel sounds
EXT: no cyanosis, clubbing, or edema
NEUROLOGIC: grossly intact
perforated duodenal ulcer with UGIB ---unclear if it is related to eliquis use since he was on prasugrel before--apprec surgery for repair--POD 13-- cont PPI 1 month post surgery--tolerating diet--anticoagulation with Eliquis restarted
septic shock due to CAUTI--chronic valverde cath due to neurogenic bladder--resolved--urine culture with Kleb pneumonia--outpt urology f/u--unclear if truly needs since now on HD
worsening CKD stage 3B--started HD this admission--apprec renal
RUE DVT--s/p PICC--repeat US unchanged from 05/15--on heparin drip, now to Eliquis--HGB stable
new onset paroxysmal afib--apprec cards--rate controlled--cont carvedilol, Eliquis
essential HTN -- cont meds as able
HLD--restart statin
DVT proph
code status -- DNR
medically clear for discharge
Original Note:
Today's Communication/Plan
-
Discharge to SNF today.
Assessment / Plan
Assessment / Plan
No changes to plan below; patient to be discharged today.
1. UGIB in the setting of PUD
-Perforated duodenal ulcer with peritonitis
-unclear if it is related to eliquis use since he was on prasugrel before
-Status post 8 units of PRBC total this hospital stay
-Developed dark maroon stools after being started on Eliquis last week
-EGD showed nonbleeding peptic ulcer and a large duodenal ulcer with clot adherent
-per GI hold anticoagulants; cardio recommend to start single agent eliquis when ok by GI
-POD #10 Perforated duodenal bulb ulcer
-s/p Exploratory laparotomy abdominal washout
-MEREDITH removed
-Peritonitis; Continue PPI; protonix bid for 1 month post op per surgery
-Tolerating Sodium 2g diet
-H/H stable
- CT A/P yesterday due to raising WBC
- Moderate bilateral pleural effusion; similar in size to old
- No evidence of free intraperitoneal air
- possible gastritis
- valvular calcifications
- Nickolas removed yesterday
- per GS; pt stable and okay to D/C
2. Sepsis due to CAUTI - POA (resolved)
- septic shock due to above
3. Neurogenic bladder with chronic valverde catheter
-urine culture showed Klebsiella pneumonia
-appreciate urology recs-continue valverde
-Chronic catheter; will leave with FC in and will need outpatient follow-up with urology
-hold finasteride, tamsulosin; continue with Valverde at discharge
-completed course of Vanco
3. DVT Right UE
-s/p d/c PICC
-Repeat ultrasound ACUTE OCCLUSIVE DEEP VENOUS THROMBOSIS in the right brachial vein which appears unchanged from 05/15/2024.
-Heparin discontinued, restarted Eliquis yesterday, as cleared by Surgery
4. New onset ESRD
- H/O CKD 3B
-Has been initiated on HD every M/W/F with nephrology here; cw HD per renal
-Had tunneled HD cath placed for long-term dialysis access; Right UE swelling, US no dvt
-Recent CT showed ongoing obstructive uropathy, now s/p Valverde catheter
-Will need follow-up at discharge with nephrology and urology
5. New onset Atrial fibrillation
-Was already on rate controlling agent with home carvedilol
-Was started on Eliquis here though currently on hold for UGIB as above
-cardio recommend to start single agent eliquis when ok by GI
- With stable HH. Heparin d/c, restarted eliquis outpatient dosing
6. Type 2 DM
-Home medications include Lantus, NovoLog, Tresiba; previously on Farxiga
-Had severe hyperglycemia on arrival, suspected to be HHS, now improved
-Blood glucose currently stable on ssc insulin
-Diabetic RN following
7. CAD s/p PCI
-Had PCI in 2021; Home meds include high intensity statin, beta-elsie, prasugrel
-Due to occurrence of new onset AF, prasugrel was transition to Eliquis
-Eliquis held during admission, restarted for d/c
8. Essential HTN
-Home medications include carvedilol, amlodipine
-No known history of hypertensive systemic diseases
9. HLD
-restart statin
Code status: DNR
Anticipated Discharge: Today
Subjective/Interval History
-
Date of Service: May 24, 2024
Patient seen and examined resting comfortably in bed, eating breakfast, was about to receive dialysis. Has no acute complaints overnight, notes no change in condition. Is still medically cleared for discharge.
Objective Data
-
Labs:
Laboratory Results
05/24/24
08:34
WBC 10.3
Hgb 8.2 L
Hct 25.8 L
Plt Count 177 D
Sodium 130 L
Potassium 4.2
Chloride 95 L
Carbon Dioxide 25
BUN 44 H
Creatinine 5.2 H*
Glucose 89
Calcium 7.5 L
Vital Signs:
Vital Signs
Temp Pulse Resp BP Pulse Ox
97.9 F 71 17 121/40 98
05/24/24 11:58 05/24/24 11:59 05/24/24 11:58 05/24/24 11:59 05/24/24 11:58
I&O
05/23/24 05/24/24 05/25/24
06:59 06:59 06:59
Intake Total 1260 / 1260 1440 / 1440
Output Total 600 / 600 750 / 750
Balance 660 / 660 690 / 690
Review of Systems
-
History Source: Patient
All other systems: Reviewed and negative
Physical Exam
-
General: Well Developed, Well Nourished and No Apparent Distress
HEENT: Normocephalic and Atraumatic
Respiratory: Clear to Auscultation
Cardiac: Regular Rhythm and S1/S2
Musculoskeletal: No Edema
Skin: Warm and Dry
Neuro: Awake, Alert and Oriented
Psych: Calm
--- NOTE | 2024-05-24 15:31 | W.DCSUMMARY ---
Addendum entered and electronically signed by Mona De MD 05/25/24 07:10:
Read, reviewed, and agree. See same day progress note for additional details. Time spent coordinating care, DC planning, review of DC plan of care with resident, transition of care, review of records in EMR, med rec, consults, notes, d/w
consultants, nursing, family, and CM = 45 minutes.
In addition to what is described below, patient also developed a deep venous thrombosis likely due to PICC/midline in his upper arm. This was initially found on May 15 ultrasound (short segment of acute deep venous thrombosis in the right
brachial vein and superficial venous thrombosis within the left cephalic vein in the forearm. Repeat ultrasound on 05/19/2024 showed an acute occlusive deep venous thrombosis in the right brachial vein which was unchanged from 05/15/2024. Patient
was started on IV heparin with eventual transition back to single agent Eliquis at discharge.
Original Note:
Discharge Summary
Discharge Data
Date of Admission: 04/26/24
Date of Discharge: 05/24/24
Total time spent discharging patient (in min): 45
-
Pending Results: No
Hospital Course
Abdullahi Be is an 83-year-old male with a past medical history of coronary artery disease, hypertension, insulin-dependent diabetes mellitus, chronic kidney disease stage IIIb, and neurogenic bladder who presented to the emergency department at
[facility] on 04/26/2024 complaining of generalized weakness for 3 days. In addition, the patient had decreased appetite and seems somewhat confused. The patient had an indwelling catheter which also did not appear to be draining
adequately.
While in the emergency department it was noted that there was purulent urine in the Rosenthal bag, the patient seemed confused, was unable to answer questions properly, and appeared off balance and weak when attempting to walk. He was afebrile yet
somewhat bradycardic, however, the rest of his examination in the emergency department was benign. The patient's white blood cell count was 19.4 K with neutrophil predominance, hemoglobin was 7.5, and the patient had multiple severe electrolyte
derangements. His sodium was 118 (corrected to 129), potassium was 7.0, BUN was 110, and creatinine was 6.7. In addition his glucose was 757 mg/dL. Lactic acid level was 2.6 mmol/L. Liver chemistries revealed a mild transaminitis along with an
alkaline phosphatase of 347, total protein of 5.2, and an albumin of 2.4. The patient's Rosenthal catheter was removed, and a new Rosenthal was placed to exclude bladder outlet obstruction and to get a specimen that was suitable for urine culture. However
there was no urine return for the changed Rosenthal. At the time, the overall presentation was thought to be caused by hyperosmolar hyperglycemic state or diabetic ketoacidosis with associated renal failure likely from dehydration. The patient's
critical hyperkalemia was treated with IV insulin, albuterol, and calcium gluconate. Additionallly, while in the emergency department however, he developed new onset atrial fibrillation that was rate controlled. The patient was admitted that
afternoon to the intensive care unit
Upon admission the patient continued to have metabolic derangements, with insufficient kidney function and oliguria. The decision was made to start the patient on dialysis. Multiple options were presented the patient with regards to urinary
drainage, including but not limited to percutaneous drainage. Since this was a potential procedure that the patient would need to undergo, Eliquis for atrial fibrillation was held at the beginning of the patient's admission. The patient eventually
refused the percutaneous procedure and thus dialysis was continued. Since the patient needed anticoagulation for atrial fibrillation, Eliquis was then began. A day after Eliquis was started, the patient lost consciousness while in the bathroom.
The patient's hemoglobin was low, although there was no overt source of bleeding. The decision was made to perform an EGD on 05/06/2024 which revealed a large duodenal ulcer in the bulb with a blood clot that was unable to be removed and treated
with epinephrine and EndoClot. Following the procedure the patient received multiple transfusions, serial complete blood counts, was started on a PPI, and all anticoagulation was held. In the coming days and emergent imaging studies were
performed, and the surgical team was also consulted. Initial CT evaluation by the surgical team, was that there was no perforation of the bowel and thus surgery was not warranted. However the patient continued to have severe abdominal pain. A
second surgeon was consulted on the scan, who felt that there was in fact a potential bowel perforation. An exploratory laparotomy was performed on 05/11/2024. Diagnostic laparoscopy confirmed all 4 quadrants peritonitis with large amount of
bilious contents. This was converted to midline laparotomy and abdominal washout. The perforated ulcer was closed with sutures. The patient remained for the next few days on vancomycin and Zosyn, and while intubated pressors were eventually
weaned. Intubation was also eventually successfully weaned. As the patient stabilized, diet was reintroduced, and decision was still to be made regarding the patient's Eliquis in the setting of atrial fibrillation. Eliquis was eventually
restarted 3 days prior to discharge. The patient was discharged to intermediate facility on 05/24/2024.
Discharge Plan
-
Patient Disposition: Care Home/SNF
Discharge Diagnosis/Procedures: Perforated Duodenal Ulcer with Upper GI Bleed (Resolved)
Septic Shock Due to CAUTI (Resolved)
Chronic Kidney Disease 3B
New Onset Paroxysmal Atrial Fibrillation
Right Upper Extremity DVT
Condition: Fair
Diet: 2 Gram Sodium
Activity: No strenuous activity
Additional Activity: Do not lift over 10lbs for the next 6 weeks
Bathing Restrictions: OK to Shower
Referrals:
Unruly Farah MD [Active] - (Please call [facility] to schedule outpatient follow up with Dr. Farah and schedule urodynamic studies in the office. )
NONE,* [Family Provider] - in less than 1 week
Abhishek Diaz MD [Active] - in two to three weeks
Prescriptions:
New
pantoprazole 40 mg tablet,delayed release (DR/EC)
40 mg PO BID Qty: 60 0RF
Eliquis 2.5 mg Tablet
2.5 mg PO BID Qty: 30 0RF
Continued
amlodipine 5 mg Tablet
10 mg PO DAILY
atorvastatin 80 mg Tablet
80 mg PO QPM
chromium picolinate 500 mcg Capsule
500 mcg PO DAILY
PreserVision AREDS 2,148 mcg-113 mg-45 mg-17.4mg Tablet
1 tab PO BID
insulin degludec [Tresiba U-100 Insulin] 100 unit/mL Solution
10 unit SC DAILY
carvedilol [Coreg] 12.5 mg Tablet
12.5 mg PO BID
milk thistle 175 mg Tablet
175 mg PO DAILY
therapeutic multivitamin Tablet
1 tab PO DAILY
Held
tamsulosin 0.4 mg Capsule
0.4 mg PO QPM
Hold Instructions: Hold Until Seen by PCP
red yeast rice 600 mg Capsule
1,200 mg PO DAILY
Hold Instructions: Hold Until Seen by PCP
finasteride 5 mg Tablet
5 mg PO DAILY
Hold Instructions: Hold Until Seen by PCP
Discontinued
prasugrel 5 mg Tablet
5 mg PO DAILY
Discharge Orders:
Discharge Patient (As Directed); Ordered 05/24/24
Ordered By: Cruzito Montelongo
Discharge Date and Time
Discharge Date/Time: 05/24/24 14:09
Print Language: UPPER SORBIAN
== END 2024-05-24 14:09 | DRG 981 ==
LOC: 2 NORTH 17:29
PROVIDERS: Emergency Medicine; Hospitalist; Internal Medicine; Internal Medicine Critical Care Medicine; Internal Medicine Gastroenterology; Nurse Practitioner; Nurse Practitioner Family; Nurse Practitioner Primary Care; Radiology Diagnostic Radiology; Radiology Vascular & Interventional Radiology; Registered Nurse; Specialist; Student in an Organized Health Care Education/Training Program; Surgery; ADMITTING PHYSICIAN Internal Medicine; CONSULT PHYSICIAN Internal Medicine Critical Care Medicine; CONSULT PHYSICIAN Internal Medicine Gastroenterology; CONSULT PHYSICIAN Internal Medicine Infectious Disease; CONSULT PHYSICIAN Specialist; CONSULT PHYSICIAN Surgery; EMERGENCY PHYSICIAN Emergency Medicine; OTHER PHYSICIAN Internal Medicine
PROC: 02HV33Z Insertion of Infusion Device into Superior Vena Cava, Percutaneous Approach (ICD-10-PCS; 2024-04-26)
PROC: 30243N1 Transfusion of Nonautologous Red Blood Cells into Central Vein, Percutaneous Approach (ICD-10-PCS; 2024-04-27)
PROC: 02H633Z Insertion of Infusion Device into Right Atrium, Percutaneous Approach (ICD-10-PCS; 2024-04-28)
PROC: B5181ZA Fluoroscopy of Superior Vena Cava using Low Osmolar Contrast, Guidance (ICD-10-PCS; 2024-04-28)
PROC: 5A1D70Z Performance of Urinary Filtration, Intermittent, Less than 6 Hours Per Day (ICD-10-PCS; 2024-04-28)
PROC: 0JH63XZ Insertion of Tunneled Vascular Access Device into Chest Subcutaneous Tissue and Fascia, Percutaneous Approach (ICD-10-PCS; 2024-05-03)
PROC: 02PAX3Z Removal of Infusion Device from Heart, External Approach (ICD-10-PCS; 2024-05-03)
PROC: 05HY33Z Insertion of Infusion Device into Upper Vein, Percutaneous Approach (ICD-10-PCS; 2024-05-03)
PROC: 3E1K78Z Irrigation of Genitourinary Tract using Irrigating Substance, Via Natural or Artificial Opening (ICD-10-PCS; 2024-05-04)
PROC: 30233N1 Transfusion of Nonautologous Red Blood Cells into Peripheral Vein, Percutaneous Approach (ICD-10-PCS; 2024-05-05)
PROC: 0W3P8ZZ Control Bleeding in Gastrointestinal Tract, Via Natural or Artificial Opening Endoscopic (ICD-10-PCS; 2024-05-06)
PROC: 3E0G8GC Introduction of Other Therapeutic Substance into Upper GI, Via Natural or Artificial Opening Endoscopic (ICD-10-PCS; 2024-05-06)
PROC: XW0G886 Introduction of Mineral-based Topical Hemostatic Agent into Upper GI, Via Natural or Artificial Opening Endoscopic, New Technology Group 6 (ICD-10-PCS; 2024-05-06)
PROC: 0BH17EZ Insertion of Endotracheal Airway into Trachea, Via Natural or Artificial Opening (ICD-10-PCS; 2024-05-11)
PROC: 0DXU0ZW Transfer Omentum to Abdominal Region, Open Approach (ICD-10-PCS; 2024-05-11)
PROC: 0DQ90ZZ Repair Duodenum, Open Approach (ICD-10-PCS; 2024-05-11)
PROC: 5A1945Z Respiratory Ventilation, 24-96 Consecutive Hours (ICD-10-PCS; 2024-05-11)
PROC: 3E1M48Z Irrigation of Peritoneal Cavity using Irrigating Substance, Percutaneous Endoscopic Approach (ICD-10-PCS; 2024-05-11)
PROC: 5A09357 Assistance with Respiratory Ventilation, Less than 24 Consecutive Hours, Continuous Positive Airway Pressure (ICD-10-PCS; 2024-05-13)
PROC: 0BP1XDZ Removal of Intraluminal Device from Trachea, External Approach (ICD-10-PCS; 2024-05-13)
DX: T83.511A Infection and inflammatory reaction due to indwelling urethral catheter, initial encounter (principal); A41.9 Sepsis, unspecified organism; E11.00 Type 2 diabetes mellitus with hyperosmolarity without nonketotic hyperglycemic-hyperosmolar coma (NKHHC); G92.8 Other toxic encephalopathy; K26.6 Chronic or unspecified duodenal ulcer with both hemorrhage and perforation; K65.0 Generalized (acute) peritonitis; N18.6 End stage renal disease; N13.6 Pyonephrosis; I12.0 Hypertensive chronic kidney disease with stage 5 chronic kidney disease or end stage renal disease; N17.9 Acute kidney failure, unspecified; E87.1 Hypo-osmolality and hyponatremia; J90 Pleural effusion, not elsewhere classified; J98.11 Atelectasis; R18.8 Other ascites; D62 Acute posthemorrhagic anemia; N25.81 Secondary hyperparathyroidism of renal origin; D68.32 Hemorrhagic disorder due to extrinsic circulating anticoagulants; K55.9 Vascular disorder of intestine, unspecified; I82.621 Acute embolism and thrombosis of deep veins of right upper extremity; I82.612 Acute embolism and thrombosis of superficial veins of left upper extremity; T82.868A Thrombosis due to vascular prosthetic devices, implants and grafts, initial encounter; E11.22 Type 2 diabetes mellitus with diabetic chronic kidney disease; I25.10 Atherosclerotic heart disease of native coronary artery without angina pectoris; E86.9 Volume depletion, unspecified; D63.8 Anemia in other chronic diseases classified elsewhere; N31.2 Flaccid neuropathic bladder, not elsewhere classified; I48.0 Paroxysmal atrial fibrillation; B96.1 Klebsiella pneumoniae [K. pneumoniae] as the cause of diseases classified elsewhere; N40.0 Benign prostatic hyperplasia without lower urinary tract symptoms; N28.1 Cyst of kidney, acquired; N32.89 Other specified disorders of bladder; E87.5 Hyperkalemia; R26.2 Difficulty in walking, not elsewhere classified; K25.9 Gastric ulcer, unspecified as acute or chronic, without hemorrhage or perforation; R74.01 Elevation of levels of liver transaminase levels; E88.09 Other disorders of plasma-protein metabolism, not elsewhere classified; I95.9 Hypotension, unspecified; D69.6 Thrombocytopenia, unspecified; T83.021A Displacement of indwelling urethral catheter, initial encounter; Y92.239 Unspecified place in hospital as the place of occurrence of the external cause; Y84.8 Other medical procedures as the cause of abnormal reaction of the patient, or of later complication, without mention of misadventure at the time of the procedure; I44.0 Atrioventricular block, first degree; E55.9 Vitamin D deficiency, unspecified; Y84.6 Urinary catheterization as the cause of abnormal reaction of the patient, or of later complication, without mention of misadventure at the time of the procedure; Y92.9 Unspecified place or not applicable; Z66 Do not resuscitate; I25.2 Old myocardial infarction; Z79.4 Long term (current) use of insulin; Z87.440 Personal history of urinary (tract) infections; Z95.5 Presence of coronary angioplasty implant and graft; Z88.8 Allergy status to other drugs, medicaments and biological substances; Z78.1 Physical restraint status
CPT/HCPCS: 36556; 36558; 36600; 51702; 51798; 70450; 71045; 74018; 74174; 74176; 74177; 76775; 76937; 77001; 80048; 80051; 80053; 80202; 81003; 81015; 82010; 82306; 82330; 82607; 82728; 82746; 82805; 82947; 82962; 83036; 83540; 83550; 83605; 83735; 83935; 83970; 84100; 84132; 84300; 84302; 84443; 84484; 85014; 85018; 85025; 85027; 85610; 85730; 86022; 86704; 86706; 86803; 86850; 86900; 86901; 86920; 87040; 87070; 87075; 87077; 87086; 87149; 87186; 87205; 87340; 93005; 93306; 93970; 93971; 94002; 94003; 94640; 94660; 96374; 96375; 97116; 97163; 97164; 97167; 97168; 97530; 97535; 99152; 99153; 99291; C1750; C1776; G0257; J2916; P9016; P9045; P9047; Q5106; Q9967

== ENCOUNTER 2024-06-09 13:17 | Inpatient (IN) | payer MEDICARE, OTHER, SELFPAY ==
[2024-06-09] VITALS (15 sets, daily range): BP systolic 74–114; BP diastolic 42–82
[2024-06-09 12:07] LABS: % Basophils 0.5 % (0-2); % Eosinophils 0.7 % (0-6); % Immature Granulocytes 0.5 % (0-0.5); % Lymphocytes 10.8 % (20.5-51.1); % Monocytes 10.5 % (1.7-9.3); Absolute Eosinophils 0.1 10^3/uL (0-0.7); Absolute Lymphocytes 0.9 10^3/uL (1.2-3.4); Absolute Monocytes 0.9 10^3/uL (0.1-0.6); Absolute Neutrophils 6.7 10^3/uL (1.4-6.5); Hematocrit 24.1 % (39.0-52.0); Hemoglobin 7.9 g/dL (13.0-18.0); Mean Corp Hgb Conc. 32.8 g/dL (33.0-37.0); Mean Corpuscular Hgb 27.4 pg (27.0-31.0); Mean Corpuscular Volume 83.7 fL (80.0-94.0); Mean Platelet Volume 9.5 fL (7.4-10.4); Nucleated Red Blood Cells % 0 % (-); Platelet Count 248 10^3/uL (130-400); Red Blood Cell Count 2.88 10^6/uL (4.70-6.10); Red Cell Dist. Width 16.3 % (11.5-14.5); White Blood Cell Count 8.7 10^3/uL (4.8-10.8)
[2024-06-09 12:14] LABS: Ammonia 11 umol/L (9-30)
[2024-06-09 12:23] LABS: ALT (SGPT) 95 U/L (0-50); AST (SGOT) 288 U/L (17-59); Albumin 2.1 g/dl (3.5-5.0); Blood Urea Nitrogen 43 mg/dl (9-20); Calcium 6.7 mg/dl (8.4-10.2); Carbon Dioxide 20 mmol/L (22-30); Chloride 99 mmol/L (98-107); Glucose 141 mg/dl (70-99); Potassium 5.3 mmol/L (3.5-5.1); Sodium 131 mmol/L (135-145); Total Bilirubin 6.2 mg/dl (0.2-1.3); Total Protein 6.1 g/dl (6.3-8.2); Troponin I 0.024 ng/ml; eGFR 9.72
--- NOTE | 2024-06-09 13:03 | ED.GENMED ---
History of Present Illness
General
Chief Complaint: Fainting/Passed Out
Source: patient
Exam Limitations: none
Time Seen by Provider: 06/09/24 12:32
Nursing documentation reviewed up to this point in time: agreed with
History of Present Illness
History of Present Illness:
Patient presents to ED from residential after witnessed syncopal episode while he was in the bathroom. Patient states that he felt lightheaded and weak, and felt as though he may pass out. No injury reported from syncopal episode, which was very
brief. At the same time, patient was noted to be jaundiced by nursing staff. Upon arrival in ED, patient is alert and awake and reports feeling tired, along with abdominal distention. Denies chest pain. Denies abdominal pain. Denies nausea or
vomiting. Patient's medical history significant for prolonged hospitalization recently secondary to perforated bowel as well as kidney failure, requiring initiation of dialysis.
Past History
Past History
ED Past Medical History: CAD, HTN, IDDM and Renal failure
ED Past Surgical History: Cardiac
Social History
Tobacco: Non-smoker
Alcohol: None
Drug: None
Personal:
Living: with family
Review of Systems
Review of Systems
Allergies reviewed?: Yes
Constitutional: Reports no symptoms
EENT: Reports no symptoms
Respiratory: Reports no symptoms; Denies trouble breathing
Cardiac: Reports syncope; Denies chest pain or palpitations
ABD/GI: Reports other (abdominal distention); Denies abdominal pain
: Reports no symptoms
Musculoskeletal: Reports no symptoms
Skin: Reports other (jaundice)
Neurological: Reports weakness
Phy Exam
Physical Exam
Physical Exam:
Physical Exam
General: mild distress, acutely ill. afebrile. weak appearing
Head: nc/at. eomi. icteric sclera noted.
Neck: supple. no meningeal signs.
Heart: s1/s2 regular rate and rhythm, no murmur. equal radial pulses.
Lungs: no acute respiratory distress. clear bilaterally
Abdomen: normal bowel sounds. not tender. mild distention noted
Neuro: alert and oriented. no focal neurological deficits
Skin: jaundice
Psychiatric: well kept. interactive and cooperative
Extremities: no edema. no calf tenderness.
Course
Orders/Labs/Results
Orders:
Orders
06/09/24 11:39
Electrocardiogram (*1) Urgent
Reason for Study: Syncope
EKG- Treatment ONCE
06/09/24 11:41
Ammonia Urgent
Complete Blood Count/With Diff Urgent
Comprehensive Metabolic Panel Urgent
Direct Bilirubin Urgent
Comment: D BILI ADDED ON BY FLOOR 4:30PM 06-09-24
GGTP Urgent
Comment: ADD ON
Troponin I Urgent
06/09/24 13:36
Hepatitis A IgM Antibody Urgent
Hepatitis B Core Ab, IgM Urgent
Hepatitis B Surface Antibody Urgent
Hepatitis B Surface Antigen Urgent
Hepatitis C Antibody Urgent
Abnormal Lab Results
06/09/24
11:41
RBC 2.88 L 10^6/uL
(4.70-6.10)
Hgb 7.9 L g/dL
(13.0-18.0)
Hct 24.1 L %
(39.0-52.0)
MCHC 32.8 L g/dL
(33.0-37.0)
RDW 16.3 H %
(11.5-14.5)
Absolute Neuts (auto) 6.7 H 10^3/uL
(1.4-6.5)
Absolute Lymphs (auto) 0.9 L 10^3/uL
(1.2-3.4)
Absolute Monos (auto) 0.9 H 10^3/uL
(0.1-0.6)
Neutrophils % 77.0 H %
(42.2-75.2)
Lymphocytes % 10.8 L %
(20.5-51.1)
Monocytes % 10.5 H %
(1.7-9.3)
Sodium 131 L mmol/L
(135-145)
Potassium 5.3 H mmol/L
(3.5-5.1)
Carbon Dioxide 20 L mmol/L
(22-30)
BUN 43 H mg/dl
(9-20)
Creatinine 5.5 H* mg/dL
(0.7-1.3)
Glucose 141 H mg/dl
(70-99)
Calcium 6.7 L* mg/dl
(8.4-10.2)
Total Bilirubin 6.2 H mg/dl
(0.2-1.3)
Direct Bilirubin 5.5 H mg/dl
(0.0-0.4)
GGT 1024 H U/L
(15-73)
AST 288 H U/L
(17-59)
ALT 95 H U/L
(0-50)
Alkaline Phosphatase > 2400 H U/L
(38-126)
Total Protein 6.1 L g/dl
(6.3-8.2)
Albumin 2.1 L g/dl
(3.5-5.0)
06/09/24 11:41
06/09/24 11:41
Vital Signs
Initial and Last Documented VS:
Initial Vital Signs
BP
114/49
06/09/24 11:36
Last Documented Vital Signs
Temp Pulse Resp BP Pulse Ox
95.9 F L 69 18 82/48 96
06/09/24 19:29 06/09/24 18:58 06/09/24 18:58 06/09/24 19:29 06/09/24 18:58
MDM/Problems Addressed
MDM/Problems Addressed:
Blood work significant for significant abnormalities, i.e. calcium, liver function test. Patient with new onset jaundice, which require further evaluation.
As patient has missed dialysis today, nephrology, , notified via [facility] text.
*Critical Care Note
Total Time (30-74mins, 75-104mins- exclusive of procedures): Not Applicable
ED Attending Note
-
Portions of this chart may have been created with voice recognition software.� Occasional wrong word or��sound alike� substitutions may have occurred due to the inherent limitations of voice recognition software.
Discharge Plan
Departure
Patient Disposition: Admit
Date of Disposition: 06/09/24
Time of Disposition: 13:15
Admit to: Telemetry
Presentation/result/management discussed w/ accepting MD/DO: Hospitalist
Discharge Problem:
Syncope, Jaundice
Interventions
Interventions:
*Risk Screen - Suicide Last Done: 06/09/24 18:56
*General Assessment Last Done: 06/09/24 14:00
*Neglect/Abuse Screening Last Done: 06/09/24 14:00
ED- Fall Risk Assessment Last Done: 06/09/24 14:00
*ED COVID-19 Vaccine History Last Done: 06/09/24 18:56
*Nursing Disposition Last Done: 06/09/24 18:22
ED- Cardiac Assessment Last Done: 06/09/24 14:00
ED- Neurological Assessment Last Done: 06/09/24 14:00
Discharge Date and Time
Discharge Date/Time: 06/09/24 18:38
[2024-06-09 13:11] LABS: Alkaline Phosphatase > 2400 U/L (38-126)
--- NOTE | 2024-06-09 14:10 | HPS.HSE ---
Family Physician
-
Family Physician: NOT KNOW UNKNOWN - PT DOES
Chief Complaint
-
syncope and Jaundice
History of Present Illness
HPI
83M NH res HX ESRD on HD ( MWF ) CAD, HTN, IDDM
- witnessed syncopal episode while he was in the bathroom
- preceded by lightheadedness and weak, and felt as though he may pass out.
- No injury reported from syncopal episode, which was very brief.
- pw syncope thus missed HD today
- patient was noted to be jaundiced by nursing staff.
Of note:
Recent HX prolonged hospitalization recently secondary to perforated bowel as well as kidney failure, requiring initiation of dialysis.
Medical History
Past Medical History
Past Medical History: Reports CAD, HTN and IDDM
Additional Past Medical History:
CKD 3B, neurogenic bladder, hyperlipidemia
Past Surgical History: Reports Cardiac (Stent)
Additional Past Surgical History:
Cardiac stenting
Social History
Tobacco: Non-smoker
Alcohol: None
Drug: None
Personal:
Living: With Family
Family History
Family History: Not pertinent
Allergies / Home Medications
Allergies reflects when Allergies were last updated in [employer].
Home Medications with original date entered in [employer]
Allergy/Medication List:
Allergies
Allergy/AdvReac Type Severity Reaction Status Date / Time
clopidogrel [From Plavix] Allergy Unknown Verified 03/21/24 10:20
Home Medications
amlodipine 5 mg tablet 10 mg PO DAILY 03/08/24
tamsulosin 0.4 mg capsule 0.4 mg PO QPM 03/08/24
atorvastatin 80 mg tablet 80 mg PO QPM 03/16/24
chromium picolinate 500 mcg capsule 500 mcg PO DAILY 03/16/24
insulin degludec 100 unit/mL subcutaneous solution (Tresiba U-100 Insulin) 10 unit SC DAILY 03/16/24
prasugrel 5 mg tablet 5 mg PO DAILY 03/16/24
red yeast rice 600 mg capsule 1,200 mg PO DAILY 03/16/24
vitamins A,C,S-bjrf-dzuads 2,148 mcg-113 mg-45 mg-17.4 mg tablet (PreserVision AREDS) 1 tab PO BID 03/16/24
carvedilol 12.5 mg tablet (Coreg) 12.5 mg PO BID 03/21/24
milk thistle 175 mg tablet 175 mg PO DAILY 03/21/24
therapeutic multivitamin 1 tab PO DAILY 03/21/24
finasteride 5 mg tablet 5 mg PO DAILY 04/26/24
Review of Systems
-
Constitutional: Reports No Symptoms
EENT: Reports No Symptoms
Respiratory: Reports No Symptoms
Cardiac: Reports No Symptoms
Abdomen/GI: Reports No Symptoms
: Reports No Symptoms
Musculoskeletal: Reports No Symptoms
Skin: Reports No Symptoms
Neurological: Reports No Symptoms
Endocrine: Reports No Symptoms
Hematologic/Lymphatic: Reports No Symptoms
Psych: Reports No Symptoms
Physical Exam
Vital Signs
Vital Signs
Pulse Resp BP Pulse Ox
68 13 111/52 95
06/09/24 13:15 06/09/24 13:15 06/09/24 13:00 06/09/24 12:15
Physical Exam
General: Well Nourished, Appears Chronically Ill and Other (Rosenthal catheter in place)
HEENT: Atraumatic; No Anicteric (Icteric sclera )
Respiratory: Clear
Cardiac: S1/S2 and Irregular Rhythm
GI: Soft and Non Tender
Musculoskeletal: No Edema
Skin: Warm and Dry
Neuro: Awake, Alert and Nonfocal/grossly intact
Psych: Calm
Laboratory Results
-
06/09/24 11:41
06/09/24 11:41
Laboratory Results
Total Bilirubin 6.2 mg/dl (0.2-1.3) H 06/09/24 11:41
AST 288 U/L (17-59) H 06/09/24 11:41
ALT 95 U/L (0-50) H 06/09/24 11:41
Alkaline Phosphatase > 2400 U/L (38-126) H 06/09/24 11:41
Troponin I 0.024 ng/ml 06/09/24 11:41
Data Reviewed
-
Ultrasound: Other (pending OP US AP )
Medical Tests (Nuc Med, Echo, EKG etc): Report Reviewed by me
Lab Data: Labs Reviewed by me
Impression/Plan
-
Vital Signs
Pulse Resp BP Pulse Ox
68 13 111/52 95
06/09/24 13:15 06/09/24 13:15 06/09/24 13:00 06/09/24 12:15
Laboratory Tests
02/14/24 03/21/24 05/23/24
15:34 12:17 05:28
Hgb 9.4 L 8.5 L 8.1 L
MCV
Sodium 139 133 L
Potassium 6.9 H*
Carbon Dioxide 21 L 21 L
BUN
Creatinine 2.5 H 2.6 H
eGFR 25.02 23.87
Calcium
Total Bilirubin
AST
ALT
Alkaline Phosphatase
Albumin
Leukocyte Esterase Rfl 2+ A
Urine WBC (Reflex) >100 A
Hepatitis A IgM Ab
Hep Bs Antigen
Hep Bs Antibody
Hep B Core IgM Ab
Hepatitis C Antibody
05/24/24 06/09/24 06/09/24
08:34 11:41 13:14
Hgb 8.2 L 7.9 L
MCV 83.7
Sodium 131 L
Potassium 5.3 H
Carbon Dioxide 20 L
BUN 43 H
Creatinine 5.5 H*
eGFR
Calcium 6.7 L*
Total Bilirubin 6.2 H
AST 288 H
ALT 95 H
Alkaline Phosphatase > 2400 H
Albumin 2.1 L
Leukocyte Esterase Rfl
Urine WBC (Reflex)
Hepatitis A IgM Ab Pending
Hep Bs Antigen Pending
Hep Bs Antibody Pending
Hep B Core IgM Ab Pending
Hepatitis C Antibody Pending
OSH US abdomen pending to scanned
Last hospitalist admission: Date of Admission: 04/26/24 - Date of Discharge: 05/24/24
DC DX:
Perforated Duodenal Ulcer with Upper GI Bleed
Septic Shock Due to CAUTI
Chronic Kidney Disease 3B
New Onset Paroxysmal Atrial Fibrillation
Right Upper Extremity DVT
ASSESSMENT & PLAN
Witnessed syncope preceded by prodroma lightheadedness
No injury
Borderline hypotension
- Fall precaution
- Hold Amlodipine and Carvedilol
- f/u ortho VSS
- Tele monitor
Chronic anemia
Current Hgb is very close to baseline - suspect hemodulition due to missed HD today
- Blood consented and scanned
- Trend Hgb
Jaundice
Hyperbilirubinemia
- Hold Atorvastatin
- Trend LFTs
- f/u Viral hep serology
- GI consulted
Worsening CKD 3B requiring HD
- HD since last admission in May
- Renal consult
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
- repeat US unchanged from 05/15
- on Eliquis since last admission
HX new onset paroxysmal AF
- cont Eliquis
- Hold Carvedilol due to soft BP
Relative hypotension with syncope
Essential HTN
- observe BP while hold anti HTN meds
HLD
- Held Statin du to abnormal LFTs
DVT Px: Eliquis
Code: DNR confirmed by spouse at beds side
IP TLM
[2024-06-09 14:51] LABS: Hepatitis B Surface Antigen Negative (Negative)
[2024-06-09 15:03] LABS: Hepatitis A IgM Antibody Negative (Negative); Hepatitis B Core Ab, IgM Negative (Negative)
[2024-06-09 15:09] LABS: Hepatitis B Surface Antibody Negative; Hepatitis C Antibody Negative (Negative)
--- NOTE | 2024-06-09 15:13 | CON.GI ---
Addendum entered and electronically signed by Tami Flynn Do, MD 06/09/24 17:53:
I saw and examined the patient.
The ANALYTICAL CLERK's note was reviewed and I agree with the note.
Comment: Abdullahi is an 83yo M with h/o DM and afib on eliquis with prolonged admission Nov to May 2024 with perforated duodenal ulcer s/p surgery 05/11 complicated by ESRD on HD. He was admitted from [facility] for syncope. GI consulted for
elevated LFTs. He denies abd pain. tells me no family h/o liver disease. Denies herbal or acetaminophen use. Zoloft is the only new med. Vitals stable. Exam sleepy but arousable jaundiced icteric, NTTP, obese. Imaging abd US reviewed done
06/09 at [facility] moderate ascites and perinephric fluid
Impression
- Elevated LFTs in cholestatic pattern
Suspect infiltrative disease given pattern
- Syncope
- DM
- Afib on eliquis
- ESRD on HD
- H/o perforated DU s/p surgery 05/11
Recommendations
- Case d/w renal ok to MRI with contrast and MRCP to eval for infiltrative liver lesions
- GGT
- Fractionate AP
- SPEP and AMA
- Paracentesis with fluid studies and cytology
- IF imaging not revealing and GGT elevated may consider liver bx
updated bedside. Will follow with you
Original Note:
Consultation
-
Date/Time Consultation Requested: 06/09/24 1400
Date/Time Consultation Performed: 06/09/24 1515
Requesting Provider: Wilbert Benoit MD
Performing Provider: EMILY Finney, Tami Bullock MD
Reason for Consultation: increased LFT's
Medical History
Chief Complaint / HPI
Chief Complaint: elevated LFT's
History of Present Illness:
Pt is a 83yo presents with past medical history of DM, HTN, CAD, ESRD on HD hemodialysis, atrial fibrillation on Eliquis, neurogenic bladder with valverde in place, Klebsiella bacteremia secondary to UTI with bilateral hydronephrosis with recent
prolonged admission April til may with initial decreased appetite, confusion, and weakness. He had severe electrolyte imbalance with severe hyperglycemia, hyponatremia, and ARISTEO. He was started on HD and also noted new Afib with start
of Eliquis. After starting pt was noted with syncope and concern for GI bleeding with EGD completed and noted large duodenal ulcer with clot and epi and endoclot treatment. Pt then developed abdominal pain with concern for perforation. Pt went to
OR 05/11 for exp lap with abdominal wash out and repair of duodenal bulb ulcer with omental pedical flap. Pt was also noted with DVT due to PICC line during admission with continued Eliquis use. Pt was eventually discharged to SNF and now returns
after witness syncope in bathroom. Pt was also noted with jaundice. On admission noted with persistent hyponatremia with Na 131, BUN 43 with creat 5.,5, bili 6.2, AST 288, ALT 95, alk phos >2400, albumin 2.1. No imaging completed on admission.
Last CT 05/21 with moderate pleural effusion, no free air or obstruction, moderate amount of mesenteric edema and free fluid in abdomen. Small amount of fluid adjacent to liver and spleen no drainable collections. right perinephric collection with
slight enhancing rim likely subcapsular hematoma. Slight irregular enhancement of posterior aspect of right kidney with recommended follow up to exclude mass. not excretion in renal pelves of ureter and dilation of distal ureter, valverde with some
bladder wall thickening. coronary calcification and noted improve SQ edema. Prior labs with normal LFT's on 05/23 with bili 0.3, AST 19, ALT 11, alk phos 214. Pt also with labs 06/06- bili 3.69, AST 82, alt 49, alk phos >1100.
At this time in review with patient and family pt was doing well at SNF and improving. Per family abdominal girth may have increased since prior admission and recent onset of jaundice. Pt denies issues with dysphagia, GERD, nausea, vomiting,
abdominal pain, diarrhea, constipation or rectal bleeding. Minimal NSAID use prior to recent admission.
.
Past Medical History
Past Medical History: CAD (s/p stent 2021), HTN, Renal Failure (on HD) and Other (atrial fibrillation, neurogenic bladder with chronic Valverde, Klebsiella bacteremia secondary to UTI with bilateral hydronephrosis, duodenal ulcer with perforation)
Past Surgical History: Cardiac (stenting ) and Other (perforated duodenal ulcer with 05/11/24 exp lap with abdominal wash out and repair of duodenal bulb ulcer with omental pedical flap)
Social History
Tobacco: Non-Smoker
Alcohol: None
Personal:
Living: [facility]
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
Family History
Family History: Other (no family history of GI malignancies)
Allergies / Home Medications
Allergy/AdvReac Type Severity Reaction Status Date / Time
clopidogrel [From Plavix] Allergy Unknown Verified 03/21/24 10:20
�Medication �Instructions �Recorded
amlodipine 5 mg tablet 10 mg PO DAILY Blood Pressure 03/08/24
tamsulosin 0.4 mg capsule 0.4 mg PO QPM Urinary Issue 03/08/24
atorvastatin 80 mg tablet 80 mg PO DAILY High Cholesterol 03/16/24
insulin degludec 100 unit/mL 10 unit SC DAILY Diabetes 03/16/24
subcutaneous solution (Tresiba
U-100 Insulin)
vitamins A,C,B-bvlj-cusgkb 2,148 1 tab PO BID Supplement 03/16/24
mcg-113 mg-45 mg-17.4 mg tablet
(PreserVision AREDS)
carvedilol 12.5 mg tablet (Coreg) 12.5 mg PO BID Blood Pressure 03/21/24
therapeutic multivitamin 1 tab PO DAILY Supplement 03/21/24
finasteride 5 mg tablet 5 mg PO DAILY Urinary Issue 04/26/24
pantoprazole 40 mg tablet,delayed 40 mg PO BID #60 tabs 05/15/24
release
apixaban 2.5 mg tablet (Eliquis) 2.5 mg PO BID #30 tabs 12/17/24
guaifenesin 400 mg tablet 400 mg PO BID 06/09/24
honey 100 % topical paste 1 applic topical DAILY sacral wound 06/09/24
(MediHoney (honey))
honey 100 % topical paste 1 applic topical DAILYPRN PRN 06/09/24
(MediHoney (honey)) soilage
melatonin 5 mg tablet 5 mg PO HS 06/09/24
sertraline 25 mg tablet 25 mg PO DAILY 06/09/24
sodium chloride 0.65 % nasal spray 2 spray intranasal Q2HPRN PRN 06/09/24
aerosol dryness
Review of Systems
-
History Source: Patient and Family
Constitutional: Reports Weight Gain (? increased abdominal girth ) and Other (jaundice )
EENT: Reports No Symptoms
Respiratory: Reports No Symptoms
Cardiac: Reports Syncope
Abdomen/GI: Reports Other (increased girth )
: Reports Dark Urine
Musculoskeletal: Reports No Symptoms
Skin: Reports No Symptoms
Neurological: Reports Dizzy and Weakness
Endocrine: Reports No Symptoms
Hematologic/Lymphatic: Reports No Symptoms
Vital Signs
Pulse Resp BP Pulse Ox
68 13 111/52 95
06/09/24 13:15 06/09/24 13:15 06/09/24 13:00 06/09/24 12:15
Physical Exam
Exam
General: Other (chronic ill appearing)
HEENT: Other (jaundice )
Respiratory: Clear and Other (decreased bases )
Cardiac: Regular Rhythm
GI: Soft, Non Tender, Distended and Other (healing midline wound )
Musculoskeletal: No Clubbing, No Cyanosis and Edema
Skin: Warm, Dry and Other (diffuse anasarca )
Neuro: Awake, Alert and AO x 3
Psych: Calm
Results
WBC 8.7 10^3/uL (4.8-10.8) 06/09/24 11:41
Hgb 7.9 g/dL (13.0-18.0) L 06/09/24 11:41
Hct 24.1 % (39.0-52.0) L 06/09/24 11:41
MCV 83.7 fL (80.0-94.0) 06/09/24 11:41
Plt Count 248 10^3/uL (130-400) 06/09/24 11:41
Absolute Neuts (auto) 6.7 10^3/uL (1.4-6.5) H 06/09/24 11:41
Sodium 131 mmol/L (135-145) L 06/09/24 11:41
Potassium 5.3 mmol/L (3.5-5.1) H 06/09/24 11:41
Chloride 99 mmol/L (98-107) 06/09/24 11:41
Carbon Dioxide 20 mmol/L (22-30) L 06/09/24 11:41
BUN 43 mg/dl (9-20) H 06/09/24 11:41
Creatinine 5.5 mg/dL (0.7-1.3) H* 06/09/24 11:41
Calcium 6.7 mg/dl (8.4-10.2) L* 06/09/24 11:41
Total Bilirubin 6.2 mg/dl (0.2-1.3) H 06/09/24 11:41
AST 288 U/L (17-59) H 06/09/24 11:41
ALT 95 U/L (0-50) H 06/09/24 11:41
Alkaline Phosphatase > 2400 U/L (38-126) H 06/09/24 11:41
Hepatitis A IgM Ab Negative (Negative) 06/09/24 13:36
Hep Bs Antibody Negative 06/09/24 13:36
Hep B Core IgM Ab Negative (Negative) 06/09/24 13:36
Hepatitis C Antibody Negative (Negative) 06/09/24 13:36
Diagnostic Image Results:
05/21/24 CT Abd/pel W Iv And Oral Contr
IMPRESSION: Moderate bilateral pleural effusions with adjacent atelectasis in the lower lobes.
No evidence of free intraperitoneal air. No evidence for bowel obstruction.
Moderate amount of mesenteric edema and free fluid within the abdomen and pelvis. Small amount of fluid with slightly enhancing rims adjacent liver and spleen. No evidence for drainable abscess collection.
Thickening of the wall the stomach, greatest involving the gastric antrum, suggesting gastritis.
Right perinephric collection with slightly enhancing peripheral rim, most likely subcapsular hematoma. Slight irregularity of enhancement of the posterior aspect of the right kidney, and follow-up is recommended to exclude a mass that was the cause
of presumed subcapsular hematoma.
On delayed images, there is no excretion of contrast into the renal pelves or ureters. There is dilation of the distal ureters bilaterally. Please correlate with any abnormality of renal function.
Valverde catheter present within the bladder. Bladder wall appears diffusely thickened. Please correlate with any evidence for cystitis.
Coronary artery calcifications and aortic valvular calcifications. Please correlate clinically.
Subcutaneous edema, improved from examination of May 09, 2024.
06/09/24 - US abdomen - right perinephric fluid collection, moderate ascites, gallbladder sludge
Prior GI Procedures:
EGD:Charly 05/06/24 - Normal esophagus.
- Non-bleeding gastric ulcer with a clean ulcer base
(Efe Class III).
- Non-bleeding duodenal ulcer with an adherent clot
(Efe Class IIb). Injected. hemostatic spray
applied.
- Non-bleeding duodenal ulcers with a clean ulcer base
(Efe Class III).
- Normal second portion of the duodenum.
- No specimens collected.
Assessment / Plan
-
Pt is a 83yo presents with past medical history of DM, HTN, CAD, ESRD on HD hemodialysis, atrial fibrillation on Eliquis, neurogenic bladder with valverde in place, Klebsiella bacteremia secondary to UTI with bilateral hydronephrosis with recent
prolonged admission April til may with initial decreased appetite, confusion, and weakness. He had severe electrolyte imbalance with severe hyperglycemia, hyponatremia, and ARISTEO. He was started on HD and also noted new Afib with start
of Eliquis. After starting pt was noted with syncope and concern for GI bleeding with EGD completed and noted large duodenal ulcer with clot and epi and endoclot treatment. Pt then developed abdominal pain with concern for perforation. Pt went to
OR 05/11 for exp lap with abdominal wash out and repair of duodenal bulb ulcer with omental pedical flap. Pt was also noted with DVT due to PICC line during admission with continued Eliquis use. Pt was eventually discharged to SNF and now returns
after witness syncope in bathroom. Pt was also noted with jaundice. On admission noted with persistent hyponatremia with Na 131, BUN 43 with creat 5.5, bili 6.2, AST 288, ALT 95, alk phos >2400, albumin 2.1. No imaging completed on admission.
Last CT 05/21 with moderate pleural effusion, no free air or obstruction, moderate amount of mesenteric edema and free fluid in abdomen. Small amount of fluid adjacent to liver and spleen no drainable collections. right perinephric collection with
slight enhancing rim likely subcapsular hematoma. Slight irregular enhancement of posterior aspect of right kidney with recommended follow up to exclude mass. not excretion in renal pelves of ureter and dilation of distal ureter, valverde with some
bladder wall thickening. coronary calcification and noted improve SQ edema. Prior labs with normal LFT's on 05/23 with bili 0.3, AST 19, ALT 11, alk phos 214. Pt also with labs 06/06- bili 3.69, AST 82, alt 49, alk phos >1100.
06/09/24 - US abdomen - right perinephric fluid collection, moderate ascites, gallbladder sludge
-new onset of jaundice with marked elevated LFT's on admission primarily bili and alk phos
-syncope prior to admission
-recent increasing abdominal girth with moderate ascites on recent US
-recent prolonged admission with gastric/duodenal ulcer with treatment then duodenal perforation with repair
-right perinephric fluid collection
-anasarca
-hyponatremia
-hyperkalemia
other med problems:
-ESRD on HD
-hx prior cardiac stent
-DM
-HTN
-CAD
-ESRD on HD
-afib
-hx neurogenic bladder
-klebsiella bacteremia with prior UTI/hydro
PLAN:
Etiology of elevated LFT's primary bili and alk phos unclear
reviewed with Dr. Bullock
add GGT, d bili, AMA, alk phos fractionation
recent US completed prior to admission as noted
check MRI but will need to review with renal for contrast
t/c amyloid testing
will order paracentesis with cytology and cell count
-
-
-
Thank you for consultation and allowing me to participate in the patient's care. Please call the fire control technician GI physician during the after hours with any questions or concerns.
[2024-06-09 17:02] LABS: Direct Bilirubin 5.5 mg/dl (0.0-0.4)
--- NOTE | 2024-06-09 17:18 | W.CON.NEPH ---
Consultation
-
Date/Time Consultation Requested: 06/09/24 1400
Date/Time Consultation Performed: 06/09/24 1530
Requesting Provider: Wilbert Borja
Performing Provider: Nena Saravia
Reason for Consultation: ESRD
Medical History
-
Chief Complaint: Syncope
History of Present Illness:
This is an 83-year-old gentleman who has hypertension on coreg, amlodipine, neurogenic/atonic bladder with chronic Valverde catheter, IDDM, HLD on statin, who was at from Apr to May for DKA and ARISTEO -started on HD, Klebsiella bacteremia secondary to
UTI with bilateral hydronephrosis, Hospital course complicated with Afib, DVT from PICC started on AC and also had large UGIB from D ulcer requiring multiple transfusions. He had D ulcer perforation requiring exp lap, repair of ulcer on 05/11/24,
Eliquis resumed later and d/c to [facility] on 05/24. He reports having dialysis MWF with out issues. Today he was in the bathroom and reportedly passed out. Staff also noted that he is jaundiced too. His is due for HD today, likely last HD was
06/06. His k is at 5.3, yang 6.7, ALP>2400, T bili 6.2. He reports likely dizzy prior to the event. No fever, CP or sob. Valverde catheter remains with dark urine. Edema present.
Past Medical History
Diabetes mellitus type 2, hypertension, coronary disease, ESRD-HD started in Apr 2024, neurogenic bladder, coronary stenting
DVT-PICC
GIB-D ulcer s/p repair for perferation
HLD
Afib
Past Surgical History: Other (Cardiac (stenting ) and Other (perforated duodenal ulcer with 05/11/24 exp lap with abdominal wash out and repair of duodenal bulb ulcer with omental pedical flap))
Social History
Tobacco: Non-Smoker
Alcohol: None
Personal:
Living: Jail
Family History
Family History: Not Pertinent
Allergies / Home Medications
Allergy/AdvReac Type Severity Reaction Status Date / Time
clopidogrel [From Plavix] Allergy Unknown Verified 03/21/24 10:20
�Medication �Instructions �Recorded �Confirmed �Type
amlodipine 5 mg tablet 10 mg PO DAILY Blood Pressure 03/08/24 06/09/24 History
tamsulosin 0.4 mg capsule 0.4 mg PO QPM Urinary Issue 03/08/24 06/09/24 History
atorvastatin 80 mg tablet 80 mg PO DAILY High Cholesterol 03/16/24 06/09/24 History
insulin degludec 100 unit/mL 10 unit SC DAILY Diabetes 03/16/24 06/09/24 History
subcutaneous solution (Tresiba
U-100 Insulin)
vitamins A,C,I-tooa-mgqrrd 2,148 1 tab PO BID Supplement 03/16/24 06/09/24 History
mcg-113 mg-45 mg-17.4 mg tablet
(PreserVision AREDS)
carvedilol 12.5 mg tablet (Coreg) 12.5 mg PO BID Blood Pressure 03/21/24 06/09/24 History
therapeutic multivitamin 1 tab PO DAILY Supplement 03/21/24 06/09/24 History
finasteride 5 mg tablet 5 mg PO DAILY Urinary Issue 04/26/24 06/09/24 History
pantoprazole 40 mg tablet,delayed 40 mg PO BID #60 tabs 05/15/24 06/09/24 Rx
release
apixaban 2.5 mg tablet (Eliquis) 2.5 mg PO BID #30 tabs 05/23/24 06/09/24 Rx
guaifenesin 400 mg tablet 400 mg PO BID 06/09/24 06/09/24 History
honey 100 % topical paste 1 applic topical DAILY sacral wound 06/09/24 06/09/24 History
(MediHoney (honey))
honey 100 % topical paste 1 applic topical DAILYPRN PRN 06/09/24 06/09/24 History
(MediHoney (honey)) soilage
melatonin 5 mg tablet 5 mg PO HS 06/09/24 06/09/24 History
sertraline 25 mg tablet 25 mg PO DAILY 06/09/24 06/09/24 History
sodium chloride 0.65 % nasal spray 2 spray intranasal Q2HPRN PRN 06/09/24 06/09/24 History
aerosol dryness
Review of Systems
-
All complete 12 point ROS have been inquired and found negative other than stated in HPI
Physical Exam
Vital Signs
Vital Signs
Pulse Resp BP Pulse Ox
68 13 111/52 95
06/09/24 13:15 06/09/24 13:15 06/09/24 13:00 06/09/24 12:15
Lab Results
WBC 8.7 10^3/uL (4.8-10.8) 06/09/24 11:41
RBC 2.88 10^6/uL (4.70-6.10) L 06/09/24 11:41
Hgb 7.9 g/dL (13.0-18.0) L 06/09/24 11:41
Hct 24.1 % (39.0-52.0) L 06/09/24 11:41
Plt Count 248 10^3/uL (130-400) 06/09/24 11:41
Sodium 131 mmol/L (135-145) L 06/09/24 11:41
Potassium 5.3 mmol/L (3.5-5.1) H 06/09/24 11:41
Chloride 99 mmol/L (98-107) 06/09/24 11:41
Carbon Dioxide 20 mmol/L (22-30) L 06/09/24 11:41
BUN 43 mg/dl (9-20) H 06/09/24 11:41
Creatinine 5.5 mg/dL (0.7-1.3) H* 06/09/24 11:41
eGFR 9.72 06/09/24 11:41
Glucose 141 mg/dl (70-99) H 06/09/24 11:41
Calcium 6.7 mg/dl (8.4-10.2) L* 06/09/24 11:41
Albumin 2.1 g/dl (3.5-5.0) L 06/09/24 11:41
Physical Exam
General: Awake, Alert, Oriented and AOx3
HEENT: EOMI, Facial Symmetry, No JVD and Other (icteric)
Respiratory: Clear, Normal Excursion and Nonlabored Respirations
Cardiac: S1/S2 and Regular Rate/Rhythm
Breast: Deferred by me
Abdomen: Soft, Nontender and Nondistended
Musculoskeletal: No Cyanosis and Edema (1+)
Skin: No Rash
Neuro: Nonfocal/Grossly Intact
Psych: Mood/afflect pleasant and Appropriate
Vascular Access: CVC
Assessment/Plan
-
Assessment:
Witnessed syncope preceded by prodroma lightheadedness
Painless jaundice
elevated LFTs
ESRD on HD
Chronic anemia
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
paroxysmal AF
Essential HTN
HLD
Neurogenic bladder with bilat hydro-chr valverde
Coronary artery disease s/p stent
h/o Duodenal ulcer perforation-s/p repair 05/2024
Plan:
Will plan HD tomorrow
metabolic parameters are acceptable
GI w/u for hyperbilirubinemia
hold anti HTN meds
ok for gadolinium with MRI
with newer contrast agents likely risk is less -d/w GI
renal diet and FR
follow h/h
d/w pt and
d/w primary and GI
[2024-06-09 18:55] LABS: Glucose - Point of Care 131 mg/dl (70-99)
[2024-06-09 19:14] LABS: GGTP 1024 U/L (15-73)
[2024-06-09] MEDS: ProAmatine 10 MG PO (19:59)
[2024-06-09 20:34] LABS: Hematocrit 23.4 % (39.0-52.0); Hemoglobin 7.9 g/dL (13.0-18.0)
[2024-06-09 21:19] LABS: Glucose - Point of Care 123 mg/dl (70-99)
[2024-06-09] MEDS: NSS 250 IV (21:41)
--- NOTE | 2024-06-09 21:59 | PTCARENOTE ---
Patient`s blood pressure was 82/48 at 1930. will call order clerk PROFESSOR OF KINESIOLOGY made aware, 10 mg midodrine ordered. See MAR for administration details. Manual BP redone at 2114, BP was 82/46. 250 ML fluid bolus ordered. Blood noted in patient`s valverde. Rico Amado PROFESSOR OF KINESIOLOGY made
aware. RN instructed to hold Abdoul
--- NOTE | 2024-06-09 22:14 | W.PN.UPDATE ---
Update Note
Progress Note Update
-Reported by the nursing staff that the patient is hypotensive, Midodrine was given, h&h checked and Hgb level with no changes from earlier.
-Recheck bp still low with map in 50s, Discussed with Admitting physician and IVF NSS 250ss bolus ordered.
-Patient valverde was noted with red bright blood,
-will hold Eliquis
-Continue monitoring h&h.
-Urology consult/ Dr. Elmore and recommended to change valverde to 3 way size 24 and initiate CBI.
PULPWOOD CUTTER
BP dropped down to 72/42 hr in 60s
Will start Levophed and transfer the patient to IMU for med administration per protocol.
[2024-06-09 22:26] LABS: Glucose - Point of Care 126 mg/dl (70-99)
[2024-06-09 22:58] LABS: Lactic Acid 1.1 mmol/L (0.7-2.0)
[2024-06-09 23:03] LABS: Carbon Dioxide 20 mmol/L (22-30); Estimated Creatinine Clearance 8 ml/min; Total Protein 5.6 g/dl (6.3-8.2); eGFR 8.58
[2024-06-09 23:07] LABS: Troponin I 0.031 ng/ml
[2024-06-09 23:20] LABS: ALT (SGPT) 92 U/L (0-50); AST (SGOT) 296 U/L (17-59); Blood Urea Nitrogen 47 mg/dl (9-20); Calcium 6.4 mg/dl (8.4-10.2); Chloride 101 mmol/L (98-107); Glucose 121 mg/dl (70-99); Potassium 5.6 mmol/L (3.5-5.1); Sodium 132 mmol/L (135-145); Total Bilirubin 6.2 mg/dl (0.2-1.3)
--- NOTE | 2024-06-09 23:22 | RR ---
A Rapid Response was called on this patient, please see Rapid Response form.
--- NOTE | 2024-06-09 23:22 | PTCARENOTE ---
At about 2200, patient was complaining of feeling dizzy and sweaty. Manual BP after midodrine and 250 ML bolus was 72/42. Rapid response was called, and patient was transferred to ICU. Report was called to Rut.
[2024-06-09 23:23] LABS: Alkaline Phosphatase 2296 U/L (38-126)
[2024-06-10] VITALS (81 sets, daily range): BP systolic 75–173; BP diastolic 42–150; BMI 23.3
[2024-06-10] MEDS: MELATONIN 5 MG PO ×2 (00:05→21:25)
--- NOTE | 2024-06-10 00:12 | PTCARENOTE ---
Addendum entered by Rut Tracey RN 06/10/24 00:13:
80s, normothermic, +1 lower extremity edema. Right dialysis catheter. 94% on room air, lung sounds diminished throughout, fine crackles in the bases. Abdomen distended, hypoactive bowel sounds. Valverde in place draining megan/blood tinged urine.
Ordered 3 way valverde for irrigation, patient refused because he is waiting for Dr. Farah. BORE MINER OPERATOR aware. Stage 2 on sacrum, foam applied. Foams applied to heels, heels red. Healing midline abdominal incision. Left arm IV patent, WNL. Call shaffer within
reach.
Original Note:
Received patient from rapid AAOx3, BP 90s/50s, MAP >65. Levophed not started. 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 Normal sinus 60s-8
[2024-06-10 04:18] LABS: Ionized Calcium 0.93 mMOL/L (1.15-1.33)
[2024-06-10 04:27] LABS: Hematocrit 23.3 % (39.0-52.0); Hemoglobin 7.9 g/dL (13.0-18.0); Mean Corp Hgb Conc. 33.9 g/dL (33.0-37.0); Mean Corpuscular Hgb 28.3 pg (27.0-31.0); Mean Corpuscular Volume 83.5 fL (80.0-94.0); Mean Platelet Volume 9.4 fL (7.4-10.4); Platelet Count 212 10^3/uL (130-400); Red Blood Cell Count 2.79 10^6/uL (4.70-6.10); Red Cell Dist. Width 16.3 % (11.5-14.5); White Blood Cell Count 10.4 10^3/uL (4.8-10.8)
[2024-06-10 04:28] LABS: Hematocrit 22.8 % (39.0-52.0); Hemoglobin 7.8 g/dL (13.0-18.0)
[2024-06-10 05:04] LABS: ALT (SGPT) 99 U/L (0-50); AST (SGOT) 322 U/L (17-59); Albumin 2.1 g/dl (3.5-5.0); Blood Urea Nitrogen 50 mg/dl (9-20); Calcium 6.4 mg/dl (8.4-10.2); Carbon Dioxide 21 mmol/L (22-30); Chloride 100 mmol/L (98-107); Estimated Creatinine Clearance 8 ml/min; Glucose 112 mg/dl (70-99); Potassium 5.7 mmol/L (3.5-5.1); Sodium 133 mmol/L (135-145); Total Bilirubin 6.6 mg/dl (0.2-1.3); Total Protein 5.7 g/dl (6.3-8.2); eGFR 7.95
[2024-06-10 05:15] LABS: Alkaline Phosphatase > 2400 U/L (38-126); Alkaline Phosphatase, Total > 2400 U/L (38-126)
[2024-06-10 05:24] LABS: Alk Phos After Heat 1828
[2024-06-10] MEDS: LOKELMA 10 GRAM PO (05:48)
[2024-06-10 06:07] LABS: HIV Combo Negative (Negative)
[2024-06-10] MEDS: LEVOPHED 250 IV (06:39)
[2024-06-10 08:08] LABS: Glucose - Point of Care 108 mg/dl (70-99)
[2024-06-10] MEDS: MANNITOL 25% 12.5 GRAMS IV (08:23)
[2024-06-10] MEDS: RETACRIT 10000 UNITS IV (08:23)
[2024-06-10] MEDS: NOVOLOG FLEXPEN-LOW RESISTANCE SC ×3 (08:36→17:11)
--- NOTE | 2024-06-10 09:00 | PTCARENOTE ---
Received pt @ change of shift. Drowsy, awakens to verbal stim; Oriented to person/situation; required reorientation to place/time; denies pain. SR w 1st degree AVB on monitor. SpO2 94% on RA. +BS, abd distended/tender. Inc BM. Chronic valverde
catheter in place w megan/bloody tinged urine; changed 2 days ago @ [facility] per nightshift RN. Pt. refusing 3 way valverde and CBI; reports his urologist is Dr. Farah would like to wait for him. On-call urology, Dr. Elmore aware and to bedside this
AM; discussed w/ pt. and pt. continued to refuse. Also current catheter not compatible w equipment to obtain urine cx- MD team aware. HD in progress this AM via R IJ tunneled HD cath. # 22 L wrist w levo gtt infusing-see MAR. Safe environment
maintained.
--- NOTE | 2024-06-10 09:49 | W.PN.GI.CBS2 ---
Today's Communication / Plan
-
MRI of liver when able to given hemodynamics
Paracentesis
Assessment / Plan
-
Abdullahi is an 83yo M with h/o DM and afib on eliquis with prolonged admission Nov to May 2024 with perforated duodenal ulcer s/p surgery 05/11 complicated by ESRD on HD. He was admitted from [facility] for syncope. GI consulted for elevated
LFTs. He denies abd pain. tells me no family h/o liver disease. Denies herbal or acetaminophen use. Zoloft is the only new med. Imaging abd US reviewed done 06/[address] [facility] moderate ascites and perinephric fluid
Impression
- Elevated LFTs in cholestatic pattern
Suspect infiltrative disease given pattern. Other consideration is cholestasis of sepsis
- Hypotension on levophed 06/09/24
- Hematuria
- Anemia
- Syncope
- DM
- Afib on eliquis
- ESRD on HD
- H/o perforated DU s/p surgery 05/11
Recommendations
- Await MRI with contrast and MRCP to eval for infiltrative liver lesions when BP is able to tolerate travel
- AP not able to be fractionated, GGT elevated suggestive of liver source
- SPEP and AMA
- Paracentesis with fluid studies and cytology. IR consult placed
- IF imaging not revealing and GGT elevated may consider liver bx
- Agree with abx and transfusion of 1U PRBC today
- Appreciate urology recommendations
Hospitalist and QUALITY SPECIALIST updated bedside. Will follow with you
Subjective
Subjective
Date of Service: June 10, 2024
Overnight patient was hypotensive and transferred to ICU for levophed now at 7. He is getting HD currently. Urology was recommending continuous bladder irrigation and he is refusing.
Objective
Data Reviewed
Laboratory Data:
Laboratory Results
06/10/24 04:10
Laboratory Results
Total Bilirubin 6.6 mg/dl (0.2-1.3) H 06/10/24 04:10
AST 322 U/L (17-59) H 06/10/24 04:10
ALT 99 U/L (0-50) H 06/10/24 04:10
Alkaline Phosphatase > 2400 U/L (38-126) H 06/10/24 04:10
Vital Signs and I&O:
Vital Signs
Temp Pulse Resp BP Pulse Ox
96.5 F L 68 12 80/51 92
06/10/24 07:25 06/10/24 06:33 06/10/24 06:33 06/10/24 06:33 06/10/24 06:33
I&O
06/09/24 06/10/24 06/11/24
06:59 06:59 06:59
Intake Total 7.5 / 7.5
Output Total
Balance -7.5 / -7.5
Physical Exam
Physical Exam
GEN: No acute distress, less conversant eyes closed
HEENT: anicteric, extraocular movements intact, clear oropharynx without exudates
GI: soft, mildly-distended, not tender to palpation, normal active bowel sounds, no hepatosplenomegaly
EXT: warm, well perfused, 2 edema bilaterally
NEURO: AAOx2, non-focal
--- NOTE | 2024-06-10 09:58 | CONS.URO ---
Medical History
History of Present Illness
Chronically-ll patient readmitted yesterday due to syncopal episode.
Protracted inpatient admissions during 2023.
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
Past Medical History
Past Medical History: Other (Renal Failure on HD; CAD, HTN, IDDM, neurogenic bladder, hyperlipidemia)
Allergies/Home Medications
Allergies
Allergy/AdvReac Type Severity Reaction Status Date / Time
clopidogrel [From Plavix] Allergy Unknown Verified 03/21/24 10:20
Home Medications
�Medication �Instructions �Recorded �Confirmed �Type
amlodipine 5 mg tablet 10 mg PO DAILY Blood Pressure 03/08/24 06/09/24 History
tamsulosin 0.4 mg capsule 0.4 mg PO QPM Urinary Issue 03/08/24 06/09/24 History
atorvastatin 80 mg tablet 80 mg PO DAILY High Cholesterol 03/16/24 06/09/24 History
insulin degludec 100 unit/mL 10 unit SC DAILY Diabetes 03/16/24 06/09/24 History
subcutaneous solution (Tresiba
U-100 Insulin)
vitamins A,C,H-fmhf-eqqdev 2,148 1 tab PO BID Supplement 03/16/24 06/09/24 History
mcg-113 mg-45 mg-17.4 mg tablet
(PreserVision AREDS)
carvedilol 12.5 mg tablet (Coreg) 12.5 mg PO BID Blood Pressure 03/21/24 06/09/24 History
therapeutic multivitamin 1 tab PO DAILY Supplement 03/21/24 06/09/24 History
finasteride 5 mg tablet 5 mg PO DAILY Urinary Issue 04/26/24 06/09/24 History
pantoprazole 40 mg tablet,delayed 40 mg PO BID #60 tabs 05/15/24 06/09/24 Rx
release
apixaban 2.5 mg tablet (Eliquis) 2.5 mg PO BID #30 tabs 05/23/24 06/09/24 Rx
guaifenesin 400 mg tablet 400 mg PO BID 06/09/24 06/09/24 History
honey 100 % topical paste 1 applic topical DAILY sacral wound 06/09/24 06/09/24 History
(MediHoney (honey))
honey 100 % topical paste 1 applic topical DAILYPRN PRN 06/09/24 06/09/24 History
(MediHoney (honey)) soilage
melatonin 5 mg tablet 5 mg PO HS 06/09/24 06/09/24 History
sertraline 25 mg tablet 25 mg PO DAILY 06/09/24 06/09/24 History
sodium chloride 0.65 % nasal spray 2 spray intranasal Q2HPRN PRN 06/09/24 06/09/24 History
aerosol dryness
Physical Exam
Vital Signs
Vital Signs
Temp Pulse Resp BP Pulse Ox
96.5 F L 68 12 80/51 92
06/10/24 07:25 06/10/24 06:33 06/10/24 06:33 06/10/24 06:33 06/10/24 06:33
Lab / Testing Results
Laboratory Results
06/10/24 04:10
Physical Exam
ill elderly male in ICU currently undergoing HD
arousable
Genito-urinary: Rosenthal Catheter (thinly bloody urine)
Assessment / Plan
-
chronic urinary retention
hematuria -- possible CAUTI
urine C&S prior to abx initiation
3-way Rosenthal with CBI -- rejected by patient: 'nothing until I talk to Dr Farah'
Data Reviewed
-
Lab Data: Labs Reviewed
Old Records: Reviewed
[2024-06-10 10:02] LABS: Glycohemoglobin (HgbA1c) 6.7 % (4.0-5.6)
--- NOTE | 2024-06-10 10:22 | CM ---
CM attempted bedside meeting with pt- sleeping soundly
Pt admitted to from 04/26-05/24- discharged to [facility] with new HD for ST rehab
Pt typically resides with his spouse in a 2SH, he was independent prior to Nov admission
Spouse is pleased with care at [facility] and in agreement with plan for SNF return on dc for continued ST rehab
Pt continues to receive HD at [facility] MWF
Per chart review, pt did not have a PCP and was referred to residency clinic
Rx coverage through [facility]
Per [facility] nursing staff, pt previously ambulated with a WW independently
Very weak in a the past week or so, has been falling and needing assist for all ADLs and ambulation
PCP-Elvin at [facility]
Rx- [facility] at [facility]
Return SNF referral sent via [facility] to [facility]
Pt currently in ICU and receiving HD
Discharge Disposition- return [facility] with HD for continued ST rehab
--- NOTE | 2024-06-10 10:41 | PHA.VAN.IN ---
Assessment
- Assessment
Renal Function: Patient has ESRD, on chronic Hemodialysis
Hemodialysis Schedule: MWF (Patient is getting HD today 06/10/24.)
Maximum Temperature: 97.2
Minimum Temperature: 95.9
Concomitant Antimicrobials: Piperacillin-tazobactam
Plan
- Plan
Initial / Loading Dose: Vanc 1000mg 15.3mg/kg
Maintenance Regimen: PRN HD MWF
Monitoring: Random 1/5 AM
Pharmacokinetics Vancomycin I
- -
Patient Age: 83
Patient Sex: Male
Vancomycin Day #: 1
Indication: Genito-Urinary Tract
Requesting Provider: Jayda
Height / Weight:
Height 5 ft 6 in
Actual Weight 65.4 kg
IBW in k.8
Adjusted BW in k.4
Pertinent Past Medical History: ESRD. HD MWF. HD initiated 04/2024. Last HD 06/06.
- Vital Signs / Lab Results
Temp Pulse Resp BP Pulse Ox
97.2 F 70 15 99/46 95
06/10/24 10:29 06/10/24 10:29 06/10/24 10:29 06/10/24 10:29 06/10/24 10:07
Lab Results - Hematology
06/09/24 06/10/24
11:41 04:10
WBC 8.7 10.4
Lab Results - Chemistry
06/09/24 06/09/24 06/10/24
11:41 22:30 04:10
BUN 43 H 47 H 50 H
Creatinine 5.5 H* 6.1 H* 6.5 H*
Estimated Creat Clear 8 8
Albumin 2.1 L 2.0 L 2.1 L
06/09/24
22:30
Lactic Acid 1.1
--- NOTE | 2024-06-10 11:22 | W.PN.NEPH.PH ---
Today's Communication / Plan
-
HD today
dose meds renally
Assessment/Plan
-
Assessment:
Witnessed syncope preceded by prodroma lightheadedness
Painless jaundice
elevated LFTs
ESRD on HD
Chronic anemia
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
paroxysmal AF
Essential HTN
HLD
Neurogenic bladder with bilat hydro-chr valverde
Coronary artery disease s/p stent
h/o Duodenal ulcer perforation-s/p repair 05/2024
Plan:
Hypotension-w/u pending, pressors to keep MAP>65
HD today with high yang bath for hypocalcemia
GI w/u for hyperbilirubinemia, MRI pending
with newer contrast agents likely risk is less -d/w GI on 06/09
mild hematuria in valverde-pt refused CBI , suspect UTI
renal diet and FR
follow h/h
d/w pt and nursing
-
-
Date of Service: June 10, 2024
CC / HPI / ROS
-
Chief Complaint:
ESRD
History of Present Illness:
anuric on valverde
hypotensive and started on levo overnight transferred to ICU
L acid 1.1, k high 5.7, yang low 6.4, I yang 0.93
Review of Systems:
offers no pain
feesl tired , no sob
Labs
-
Labs:
WBC 10.4 10^3/uL (4.8-10.8) 06/10/24 04:10
RBC 2.79 10^6/uL (4.70-6.10) L 06/10/24 04:10
Plt Count 212 10^3/uL (130-400) 06/10/24 04:10
Sodium 133 mmol/L (135-145) L 06/10/24 04:10
Potassium 5.7 mmol/L (3.5-5.1) H 06/10/24 04:10
Chloride 100 mmol/L (98-107) 06/10/24 04:10
Carbon Dioxide 21 mmol/L (22-30) L 06/10/24 04:10
BUN 50 mg/dl (9-20) H 06/10/24 04:10
Creatinine 6.5 mg/dL (0.7-1.3) H* 06/10/24 04:10
eGFR 7.95 06/10/24 04:10
Glucose 112 mg/dl (70-99) H 06/10/24 04:10
Calcium 6.4 mg/dl (8.4-10.2) L* 06/10/24 04:10
Albumin 2.1 g/dl (3.5-5.0) L 06/10/24 04:10
Physical Exam
-
Vital Signs:
Vital Signs
Temp Pulse Resp BP Pulse Ox
97.7 F 71 14 115/54 98
06/10/24 11:15 06/10/24 11:15 06/10/24 11:15 06/10/24 11:15 06/10/24 11:15
Cardiovascular:: Regular rate and rhythm
Respiratory:: Bilateral: CTA (anteriorly)
Lung Excursion:: Normal
Abdomen:: Nontender and Soft
Extremity Edema:: +1: Bilateral:
Valverde Catheter: Yes
--- NOTE | 2024-06-10 11:27 | W.PN.NEPH.HD ---
Assessment
-
pt seen during HD
on pressors, limited UF
CVC functions well
high dose EWELINA for anemia
high yang bath for hypoclacemia
Progress Note - Hemodialysis
-
Date of Service: June 10, 2024
Duration: 30 minutes and 3 hours
Potassium Bath: 2
Calcium Bath: 3
Opti-Dialyzer: 160
Ultrafiltration: Other (0.5kg)
Blood Flow: 400
Dialysate Flow: 600
Heparin: no
EPO: [id number]
[2024-06-10 12:07] LABS: Glucose - Point of Care 94 mg/dl (70-99)
[2024-06-10] MEDS: ZOSYN 50 IV ×2 (12:17→19:50)
[2024-06-10] MEDS: ZOLOFT 25 MG PO (12:17)
[2024-06-10] MEDS: VANCOCIN 200 IV (13:08)
[2024-06-10 15:03] LABS: Hematocrit 28.4 % (39.0-52.0); Hemoglobin 9.6 g/dL (13.0-18.0)
--- NOTE | 2024-06-10 16:02 | W.PN.HOSP.TC ---
Addendum entered and electronically signed by Mona De MD 06/10/24 18:32:
I saw and evaluated the patient independently. I reviewed the resident�s note and agree with findings and plan as documented by Dr. Montelongo.
GENERAL: chronically ill appearing male appears sick
HEENT: scleral icterus/jaundice--NC/AT
HEART: regular rate and rhythm, +S1, +S2
LUNGS : clear to auscultation bilaterally
ABDOM: soft, nontender, nondistended, + bowel sounds
EXT: no cyanosis, clubbing, or edema
NEUROLOGIC: weak
: valverde cath with bloody urine
Witnessed syncope preceded by prodroma lightheadedness --likely due to acute blood loss anemia from hematuria--hold BP meds--if able check orthostatic VS--no apparent injury
mild hypovolemic vs septic shock due to acute blood loss anemia from hematuria on Chronic anemia-- did miss HD on day of admission--transfuse 1 unit pRBC for HGB of 7.8--on Levophed--cannot use aggressive IVF with dialysis needs
acute hematuria--possible due to UTI?--cont vanco/zosyn renally dosed--follow cultures--needs 3 way cath with CBI--pt refusing until he speaks to Dr. Farah (Dr. Elmore consulted and aware)
Jaundice with Hyperbilirubinemia-- appears new--apprec GI--hold statin--LFTs elevated, follow--for MRI/MRCP--apprec GI--hepatitis serology pending
ESRD--now on HD since last hospitalization--had Worsening CKD 3B required HD --apprec renal input--dialysis as per renal
HX RUE DVT related to PICC--- repeat US unchanged from 05/15--- on Eliquis since last admission --hold for hematuria
HX new onset paroxysmal AF-- hold Eliquis-- Hold Carvedilol due to soft BP
Essential HTN --meds on hold
HLD--Held Statin due to abnormal LFTs
Code: DNR
Total Critical Care Time 32 minutes. I was immediately available to the patient and staff. I personally examined, reviewed labs, diagnostic images/reports, interpretations, treatment plans, discussed patient care with other providers and family
or caregivers (if patient is unable to make decisions), entered orders as appropriate and documented the medical record.
Original Note:
Today's Communication/Plan
-
.
Assessment / Plan
Assessment / Plan
1. Witnessed Syncopal Episode
- Single episode with prodromal lightheadedness
- No post-fall injury
- Fall precautions
- Patient admitted to ICU with telemetry orders
- Likely secondary to acute blood loss in the setting of hematuria
2. Hematuria
- Patient continues to exhibit BRB in the Valverde Bag
- Possible CAUTI
- Urinalysis reflex to culture and sensitivities
- Start Vancomycin and Zosyn empirically
- Urology consult; appreciate reccs
- Recommended 3-way Valverde with CBI; patient declines until he can speak with Dr. Farah
3. Jaundice
- t - Bili 6.6 markedly elevated from prior admission, D- Bili 5.5
- Markedly elevated alk-phos, mildly elevated transaminitis
- Patient seen by GI, appreciate reccs
- Suspect infiltrative disease given LFT pattern
- MRI with contrast/MRCP when BP is able to tolerate
- SPEP, AMA
- Paracentesis with fluid studies and cyto; consider liver bx (IR consult placed)
- Viral Hepatitis Serologies
- Daily CMPs
- Hold Atorvastatin
4. ESRD Requiring HD
- Appreciated Nephro
- Missed HD yesterday, HD today; high yang bath for hypocalcemia
- Renal diet/renal dosing
5. Hypocalcemia
- High yang bath with HD today
- Follow up CMP
6. Chronic Anemia
- Blood consented and scanned; given 1 U pRBC today
- Trend CBC
7. Hx RUE CVT s/p PICC on last admission
- Repeat US no change since 05/15
8. Paroxysmal A-fib
- Continue Eliquis for now
- Hold Carvedilol for soft BP
9. Relative Hypotension
- Given Midodrine in ED; transfered to ICU; Levophed if needed; wean as appropriate
10. Hyperlipidemia
- Hold statin 2/2 LFTs
11. Depression
- Sertraline/Melatonin for Sleep
Anticipated Discharge: > 48 hours
Subjective/Interval History
-
Date of Service: June 10, 2024
Patient seen and examined in the ICU while in bed receiving dialysis. Patient appears fatigued and is reluctant to answer questions at this time.
Review of overnight records: HPI
83M NH res HX ESRD on HD ( MWF ) CAD, HTN, IDDM
- witnessed syncopal episode while he was in the bathroom
- preceded by lightheadedness and weak, and felt as though he may pass out.
- No injury reported from syncopal episode, which was very brief.
- pw syncope thus missed HD today
- patient was noted to be jaundiced by nursing staff.
Objective Data
-
Labs:
Laboratory Results
06/10/24 06/10/24 06/10/24
02:00 04:10 04:10
WBC 10.4
Hgb Cancelled 7.9 L 7.8 L
Hct Cancelled 23.3 L
Plt Count
Sodium
Potassium
Chloride
Carbon Dioxide
BUN
Creatinine
Glucose
Calcium
Total Bilirubin
AST
ALT
Alkaline Phosphatase
06/10/24 06/10/24
04:10 14:47
WBC
Hgb 9.6 L D
Hct 22.8 L 28.4 L
Plt Count 212
Sodium 133 L
Potassium 5.7 H
Chloride 100
Carbon Dioxide 21 L
BUN 50 H
Creatinine 6.5 H*
Glucose 112 H
Calcium 6.4 L*
Total Bilirubin 6.6 H
AST 322 H
ALT 99 H
Alkaline Phosphatase > 2400 H
Vital Signs:
Vital Signs
Temp Pulse Resp BP Pulse Ox
96.8 F L 71 12 109/87 95
06/10/24 15:27 06/10/24 14:15 06/10/24 14:15 06/10/24 14:15 06/10/24 15:29
I&O
06/09/24 06/10/24 06/11/24
06:59 06:59 06:59
Intake Total 257.5 / 257.5
Output Total
Balance 242.5 / 242.5
Review of Systems
-
Unable to obtain full review of systems at this time due to: Acuity
Physical Exam
-
General: Other (Fatigued)
HEENT: Normocephalic and Atraumatic
Respiratory: Clear to Auscultation (anteriorly)
Cardiac: Regular Rhythm and S1/S2
GI: Soft and Nontender
Genito-urinary: Bloody Urine (draining to Valverde)
Musculoskeletal: Other (+1 bilateral lower extremity edema)
Data Reviewed
-
Labs: Labs Reviewed by me
Old Records: Reviewed
[2024-06-10 17:03] LABS: Glucose - Point of Care 123 mg/dl (70-99)
--- NOTE | 2024-06-10 17:24 | PTCARENOTE ---
Levo gtt increased to keep MAP >65 during HD tx. S/P goal MAP, levo titrated to off @ 1415- see flow sheet. Levo gtt remains off. @ bedside, updated. Safe environment maintained.
--- NOTE | 2024-06-10 17:56 | PTCARENOTE ---
pt. w episode of bradycardia into high 30's. Self resolved w/ in <20 sec back into 70's. Diaphoretic, otherwise asymptomatic. BP 92/56. Dr. De aware.
[2024-06-10] MEDS: LIDOCAINE URO-JET 2% 1 SYRINGE TOPICAL (18:15)
--- NOTE | 2024-06-10 19:10 | PTCARENOTE ---
Pt. agreeable to 3way valverde and initiation of CBI. Orders carried through. No urine upon valverde insert. Irrigation started and running clear- slow'd down. Oncoming nightshift RN updated.
--- NOTE | 2024-06-10 19:37 | PTCARENOTE ---
Assume care of pt. approx 1900.
Resting in bed family bedside.
BP running low, MAP 60, started on norepi see titration flowsheet for details.
[2024-06-10] MEDS: OCEAN, SALINE MIST 2 SPRAYS NASAL (21:25)
[2024-06-11] VITALS (40 sets, daily range): BP systolic 76–117; BP diastolic 34–91; BMI 23.4
[2024-06-11 03:35] LABS: Hematocrit 25.7 % (39.0-52.0); Hemoglobin 8.7 g/dL (13.0-18.0); Mean Corp Hgb Conc. 33.9 g/dL (33.0-37.0); Mean Corpuscular Hgb 28.2 pg (27.0-31.0); Mean Corpuscular Volume 83.4 fL (80.0-94.0); Mean Platelet Volume 9.6 fL (7.4-10.4); Platelet Count 162 10^3/uL (130-400); Red Blood Cell Count 3.08 10^6/uL (4.70-6.10); Red Cell Dist. Width 15.7 % (11.5-14.5)
[2024-06-11] MEDS: LEVOPHED 250 IV (03:50)
[2024-06-11] MEDS: ZOSYN 50 IV ×3 (03:51→21:13)
[2024-06-11 03:58] LABS: Vancomycin Random 12.9 ug/ml
[2024-06-11 04:14] LABS: ALT (SGPT) 101 U/L (0-50); AST (SGOT) 304 U/L (17-59); Alkaline Phosphatase > 2400 U/L (38-126); Blood Urea Nitrogen 29 mg/dl (9-20); Calcium 6.9 mg/dl (8.4-10.2); Carbon Dioxide 27 mmol/L (22-30); Chloride 98 mmol/L (98-107); Estimated Creatinine Clearance 17 ml/min; Glucose 130 mg/dl (70-99); Potassium 4.7 mmol/L (3.5-5.1); Sodium 131 mmol/L (135-145); Total Bilirubin 6.6 mg/dl (0.2-1.3); Total Protein 5.6 g/dl (6.3-8.2); eGFR 19.33
--- NOTE | 2024-06-11 07:25 | W.PN.URO.CBU ---
Today's Communication / Plan
-
per RN, Patient's convinced him to have 3-way Rosenthal + CBI, which will expedite minimization of infection
add Diflucan for yeast growing in urine
Assessment / Plan
-
chronic urinary retention
hematuria -- YEAST CAUTI
Diagnosis
-
Date of Service: June 11, 2024
-
Patient Diagnosis:
chronic urinary retention
hematuria -- YEAST CAUTI
Subjective
-
comfortable with 3-way Rosenthal with CBI
Objective
-
Vital Signs
Temp Pulse Resp BP Pulse Ox
98.5 F 65 17 102/77 86
06/11/24 06:02 06/11/24 06:02 06/11/24 06:02 06/11/24 06:02 06/11/24 06:02
Intake and Output
06/10/24 06/11/24 06/12/24
06:59 06:59 06:59
Intake Total 415.0 / 415.0
Output Total 115 / 115
Balance 300.0 / 300.0
Intake:
Oral fluids 100 / 100
IV fluids (Total) 15.0 / 15.0
levo 15.0 / 15.0
IV piggybacks 50 / 50
Blood Product Amount Infused ( 250 / 250
mL)
Packed Rbc Leukoreduced Unit 250 / 250
[id number]
Output:
Urine, Rosenthal 15
True Urine Output from CBI 100 / 100
Other:
Transfused during hemodialysis?
Packed Rbc Leukoreduced Unit Yes
[id number]
Laboratory Results
06/11/24 03:24
06/11/24 03:24
yeast in urine
Physical Exam
-
General -asleep in ICU bed
Genitalia - Rosenthal: 3-way with CBI and clear outflow
[2024-06-11 07:28] LABS: Glucose - Point of Care 130 mg/dl (70-99)
[2024-06-11] MEDS: NOVOLOG FLEXPEN-LOW RESISTANCE SC ×2 (07:31→17:33)
--- NOTE | 2024-06-11 07:42 | PHA.VAN.FU ---
Vancomycin Assessment / Plan
- Assessment
Hemodialysis Schedule: MWF (Patient is getting HD today 06/10/24.)
WBC's are: Trending Up
In the past 24 hrs, patient has been: Hypothermic (Tmin = 96.8)
Concomitant Antimicrobials: Piperacillin-tazobactam
- Assessment - Therapeutic Drug Monitoring
Random Level: R = 12.9 ~ 14.5hrs post Vanc 1gm
- Dosing Plan
Continue: Dose by level
Dosing by Level: Re-dose today (Vanc 500mg today 7.6mg/kg)
- Monitoring Plan
Random Level: 1/6 AM pre HD
- Follow Up
Pharmacy will continue to follow.
Vancomycin Follow UP
- -
Patient Age: 83
Patient Sex: Male
Vancomycin Day #: 2
Indication: Genito-Urinary Tract
Requesting Provider: Jayda
Height / Weight:
Height 5 ft 6 in
Actual Weight 65.7 kg
IBW in k.8
Adjusted BW in k.4
Pertinent Past Medical History: ESRD. HD MWF. HD initiated 04/2024. Last HD 06/06.
- Vital Signs / Lab Results
Temp Pulse Resp BP Pulse Ox
98.5 F 65 17 102/77 86
06/11/24 06:02 06/11/24 06:02 06/11/24 06:02 06/11/24 06:02 06/11/24 06:02
Lab Results - Hematology
06/09/24 06/10/24 06/11/24
11:41 04:10 03:24
WBC 8.7 10.4 12.0 H
Lab Results - Chemistry
06/09/24 06/09/24 06/10/24
11:41 22:30 04:10
BUN 43 H 47 H 50 H
Creatinine 5.5 H* 6.1 H* 6.5 H*
Estimated Creat Clear 8 8
Albumin 2.1 L 2.0 L 2.1 L
06/11/24
03:24
BUN 29 H
Creatinine 3.1 H
Estimated Creat Clear 17
Albumin 2.0 L
06/09/24
22:30
Lactic Acid 1.1
Therapeutic Drug Monitoring
Random Vancomycin 12.9 ug/ml 06/11/24 03:24
[2024-06-11] MEDS: VANCOCIN HCL 500 MG 100 IV (08:11)
[2024-06-11] MEDS: ZOLOFT 25 MG PO (08:11)
[2024-06-11] MEDS: DIFLUCAN 200 MG PO (08:11)
--- NOTE | 2024-06-11 08:30 | PTCARENOTE ---
Received pt @ change of shift. Drowsy, awakens to verbal stim; Oriented to person/situation; required reorientation to place/time; denies pain. SR w 1st degree AVB on monitor. SpO2 94% on RA. +BS, abd distended/tender. Inc BM. 3-way valverde in
place w CBI infusing, running clear. R IJ tunneled HD cath. #20 L UA w levo gtt- see flow sheet. Pt. hypothermic- temp 93.3. MD team made aware and further orders for baron hugger- applied. Rectal probe inserted for q1h temp checks. Ca+
critically low this AM- 6.9; MD team made aware as well. Safe environment maintained.
--- NOTE | 2024-06-11 10:02 | W.PN.GI.CBS2 ---
Today's Communication / Plan
-
Blood cultures, CXR
Abd US and paracentesis
Suspect elevations in LFTs related to cholestasis of sepsis and hypoperfusion given pressure requirement
Assessment / Plan
-
Abdullahi is an 83yo M with h/o DM and afib on eliquis with prolonged admission Nov to May 2024 with perforated duodenal ulcer s/p surgery 05/11 complicated by ESRD on HD. He was admitted from [facility] for syncope. GI consulted for elevated
LFTs. He denies abd pain. tells me no family h/o liver disease. Denies herbal or acetaminophen use. Zoloft is the only new med. Imaging abd US reviewed done 06/09 at [facility] moderate ascites and perinephric fluid
Impression
- Elevated LFTs in cholestatic pattern
Suspect cholestasis of sepsis and hypoperfusion given pressor requirement
Other consideration is infiltrative disease such as amyloid, lymphoma etc
- Leukocytosis, hypotension on levophed 06/09/24 and hypothermia
- Hematuria
- Anemia
- Syncope
- DM
- Afib on eliquis
- ESRD on HD
- H/o perforated DU s/p surgery 05/11
Recommendations
- Leukocytosis, hypothermia and hypotension suggestive of sepsis
- C/w abx
- Ordered blood cultures and CXR.
- Unable to travel for MRI with contrast and MRCP to eval for infiltrative liver lesions due to unstable hemodynamics
- Recommend abd US complete
- AP not able to be fractionated, GGT elevated suggestive of liver source
- SPEP and AMA pending
- Paracentesis with fluid studies and cytology. IR consult placed
- Appreciate urology recommendations
Will follow with you
Subjective
Subjective
Date of Service: June 11, 2024
Hypothermic. Continues to be on levophed. Denies abd pain, nausea/vomiting. Started continuous bladder irrigation yesterday.
Objective
Data Reviewed
Laboratory Data:
Laboratory Results
06/11/24 03:24
06/11/24 03:24
Laboratory Results
Total Bilirubin 6.6 mg/dl (0.2-1.3) H 06/11/24 03:24
AST 304 U/L (17-59) H 06/11/24 03:24
ALT 101 U/L (0-50) H 06/11/24 03:24
Alkaline Phosphatase > 2400 U/L (38-126) H 06/11/24 03:24
Vital Signs and I&O:
Vital Signs
Temp Pulse Resp BP Pulse Ox
93.3 F L 58 19 99/53 94
06/11/24 08:32 06/11/24 08:20 06/11/24 08:30 06/11/24 08:30 06/11/24 08:34
I&O
06/10/24 06/11/24 06/12/24
06:59 06:59 06:59
Intake Total 415.0 / 415.0
Output Total 115 / 115 0 / 0
Balance 300.0 / 300.0 0 / 0
Physical Exam
Physical Exam
GEN: No acute distress, conversant more awaken today
HEENT: anicteric, extraocular movements intact, clear oropharynx without exudates, neck line
GI: soft, non-distended, not tender to palpation, normal active bowel sounds, no hepatosplenomegaly
EXT: warm, well perfused, 2+ edema bilaterally
NEURO: AAOx2, non-focal
--- NOTE | 2024-06-11 12:30 | PTCARENOTE ---
Per urology, Dr. Elmore; slow CBI to trickle rate and plan to resume Eliquis tomorrow. MD team to bedside, made aware. Pt. transported via bed to MRI and back to rm [id number], no events. Levo gtt remains on/off to keep MAP >65. @ bedside,
updated.
--- NOTE | 2024-06-11 12:44 | W.PN.NEPH.PH ---
Today's Communication / Plan
-
HD tomorrow
Assessment/Plan
-
Assessment:
Witnessed syncope preceded by prodroma lightheadedness
Painless jaundice
elevated LFTs
ESRD on HD
Chronic anemia
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
paroxysmal AF
Essential HTN
HLD
Neurogenic bladder with bilat hydro-chr valverde
Coronary artery disease s/p stent
h/o Duodenal ulcer perforation-s/p repair 05/2024
Plan:
Hypotension off pressors this am
s/p MRI today, plan HD tomorrow
GI w/u for hyperbilirubinemia
with newer contrast agents likely risk is less -d/w GI on 06/09
MRI noted ascites and pleural effusion -UF as tolerates but limited by low BPs, add midodrine
mild hematuria in valverde-on CBI- follows , suspect UTI
monitor yang, corrected borderline low-check vit D and PTH
renal diet and FR
follow h/h
d/w pt and nursing
-
-
Date of Service: June 11, 2024
CC / HPI / ROS
-
Chief Complaint:
ESRD
History of Present Illness:
anuric on valverde, on CBI for hematuria
BP soft off pressors
yang low 6.9
Review of Systems:
offers no pain
feesl tired , no sob
Labs
-
Labs:
WBC 12.0 10^3/uL (4.8-10.8) H 06/11/24 03:24
RBC 3.08 10^6/uL (4.70-6.10) L 06/11/24 03:24
Hgb 8.7 g/dL (13.0-18.0) L 06/11/24 03:24
Hct 25.7 % (39.0-52.0) L 06/11/24 03:24
Plt Count 162 10^3/uL (130-400) D 06/11/24 03:24
Sodium 131 mmol/L (135-145) L 06/11/24 03:24
Potassium 4.7 mmol/L (3.5-5.1) 06/11/24 03:24
Chloride 98 mmol/L (98-107) 06/11/24 03:24
Carbon Dioxide 27 mmol/L (22-30) 06/11/24 03:24
BUN 29 mg/dl (9-20) H 06/11/24 03:24
Creatinine 3.1 mg/dL (0.7-1.3) H 06/11/24 03:24
eGFR 19.33 06/11/24 03:24
Glucose 130 mg/dl (70-99) H 06/11/24 03:24
Calcium 6.9 mg/dl (8.4-10.2) L* 06/11/24 03:24
Albumin 2.0 g/dl (3.5-5.0) L 06/11/24 03:24
Physical Exam
-
Vital Signs:
Vital Signs
Temp Pulse Resp BP Pulse Ox
94 F L 58 19 99/53 94
06/11/24 10:20 06/11/24 08:20 06/11/24 08:30 06/11/24 08:30 06/11/24 08:34
Cardiovascular:: Regular rate and rhythm
Respiratory:: Bilateral: CTA (anteriorly)
Lung Excursion:: Normal
Abdomen:: Distended, Nontender and Soft
Extremity Edema:: +1: Bilateral:
Valverde Catheter: Yes
[2024-06-11 12:55] LABS: Glucose - Point of Care 153 mg/dl (70-99)
[2024-06-11] MEDS: ProAmatine 5 MG PO ×2 (14:03→17:17)
[2024-06-11] MEDS: CALCIUM GLUCONATE 100 IV (14:03)
--- NOTE | 2024-06-11 14:13 | W.PN.HOSP.TC ---
Addendum entered and electronically signed by Mona De MD 06/11/24 19:15:
I saw and evaluated the patient independently. I reviewed the resident�s note and agree with findings and plan as documented by Dr. Montelongo.
GENERAL: chronically ill appearing male appears sick
HEENT: scleral icterus/jaundice--NC/AT
HEART: regular rate and rhythm, +S1, +S2
LUNGS : clear to auscultation bilaterally
ABDOM: soft, nontender, nondistended, + bowel sounds
EXT: no cyanosis, clubbing, or edema
NEUROLOGIC: weak
: valverde cath with clear urine--on CBI trickle
Witnessed syncope preceded by prodroma lightheadedness --likely due to acute blood loss anemia from hematuria--hold BP meds--if able check orthostatic VS--no apparent injury
mild hypovolemic vs septic shock (hypotensive, hypothermic) due to acute blood loss anemia from hematuria on Chronic anemia-- did miss HD on day of admission--transfused 1 unit pRBC for HGB of 7.8-- Levophed weaning to off--cannot use aggressive IVF
with dialysis needs--check TSH with reflex to T4--check random cortisol in AM--cultured by GI--consider ID consult--yeast in urine, Diflucan added by urology--cont vanco/zosyn renally dosed
acute hematuria--possible due to UTI?--cont vanco/zosyn renally dosed--follow cultures-- 3 way cath with CBI in place
Jaundice with Hyperbilirubinemia-- appears new--apprec GI--hold statin--LFTs elevated, follow-- MRI/MRCP with large volume ascites--need IR for paracentesis--apprec GI--hepatitis serology pending
ESRD--now on HD since last hospitalization--had Worsening CKD 3B required HD --apprec renal input--dialysis as per renal
HX RUE DVT related to PICC--- did not repeat US this admission, consider doing so-- on Eliquis since last admission --hold for hematuria
HX new onset paroxysmal AF-- holding Eliquis--restart tomorrow as per urology-- Hold Carvedilol due to soft BP
Essential HTN --meds on hold since on levophed--restart when able
HLD--Held Statin due to abnormal LFTs
Code: DNR
Original Note:
Today's Communication/Plan
-
.
Assessment / Plan
Assessment / Plan
1. Witnessed Syncopal Episode
- Single episode with prodromal lightheadedness
- No post-fall injury
- Fall precautions
- Patient admitted to ICU with telemetry orders
- Likely secondary to acute blood loss in the setting of hematuria
2. Hematuria
- Patient receiving CBI, current flow rate at trickle; draining nonbloody urine/water
- Possibly caused by CAUTI
- Urinalysis reflex to culture and sensitivities
- Yeast cultured so far --> start Diflucan
- Start Vancomycin and Zosyn empirically
- Urology consult; appreciate reccs
3. Jaundice
- t - Bili 6.6 markedly elevated from prior admission, D- Bili 5.5
- Markedly elevated alk-phos, mildly elevated transaminitis
- Patient seen by GI, appreciate reccs
- Suspect cholestasis of sepsis and hypoperfusion given pressor requirement
- Suspect infiltrative disease given LFT pattern
- MRCP when BP is able to tolerate
- SPEP, AMA
- Paracentesis with fluid studies and cyto; consider liver bx (IR consult placed)
- Viral Hepatitis Serologies
- MR Abdomen: Limited evaluation 2/2 motion and large volume ascites. No bile duct dilation. 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 Moderate bilateral pleural effusions.
- Daily CMPs
- Hold Atorvastatin
4. ESRD Requiring HD
- Appreciated Nephro
- HD yesterday, HD tomorrow
- Renal diet/renal dosing
5. Hypocalcemia
- High yang bath with HD yesterday
- Ca 6.9; corrected for albumin on the low level of normal; replete with calcium gluconate today
- PTH/Vit D in AM
6. Chronic Anemia
- Blood consented and scanned; given 1 U pRBC yesterday; CBC 9.6 following, 8.7 this morning
- Trend CBC, replete for Hb < 8
7. Hx RUE CVT s/p PICC on last admission
- Repeat US no change since 05/15
8. Paroxysmal A-fib
- Continue Eliquis for now
- Hold Carvedilol for soft BP
9. Relative Hypotension
- Given Midodrine in ED; transfered to ICU; Levophed if needed; wean as appropriate
- TSH Reflex to Free T4
- Random Cortisol in AM
10. Hyperlipidemia
- Hold statin 2/2 LFTs
11. Depression
- Sertraline/Melatonin for Sleep
12. Hypothermia
- Edison hugger
Anticipated Discharge: > 48 hours
Subjective/Interval History
-
Date of Service: June 11, 2024
Patient seen and examined while resting in bed in the ICU. Patient states that he feels tired, but other than that feels fine despite recognizing the need for treatment and lability of his blood pressures. Per nursing, the patient was attempted to
be weaned off pressors but failed. In the interim, patient's convinced the patient to get the 3 way cath and continuous bladder irrigation.
Objective Data
-
Labs:
Laboratory Results
06/11/24
03:24
WBC 12.0 H
Hgb 8.7 L
Hct 25.7 L
Plt Count 162 D
Sodium 131 L
Potassium 4.7
Chloride 98
Carbon Dioxide 27
BUN 29 H
Creatinine 3.1 H
Glucose 130 H
Calcium 6.9 L*
Total Bilirubin 6.6 H
AST 304 H
ALT 101 H
Alkaline Phosphatase > 2400 H
Vital Signs:
Vital Signs
Temp Pulse Resp BP Pulse Ox
95.2 F L 80 19 81/45 94
06/11/24 12:30 06/11/24 14:03 06/11/24 08:30 06/11/24 14:03 06/11/24 08:34
I&O
06/10/24 06/11/24 06/12/24
06:59 06:59 06:59
Intake Total 415.0 / 415.0
Output Total 115 / 115 0 / 0
Balance 300.0 / 300.0 0 / 0
Review of Systems
-
History Source: Patient
Constitutional: Reports Fatigue and Other (denies pain)
Respiratory: Reports No Symptoms
Cardiac: Reports No Symptoms
Physical Exam
-
General: Appears Chronically Ill
HEENT: Normocephalic and Atraumatic
Respiratory: Clear to Auscultation (anteriorly)
Cardiac: Regular Rhythm and S1/S2
GI: Soft and Nontender
Genito-urinary: Valverde (CBI currently at trickle, non bloody urine in bag ) and Continuous Bladder Irrigation
Musculoskeletal: No Clubbing, No Cyanosis and Other (2+ LLE edema bilaterally)
Skin: Warm and Dry
Neuro: Awake and Nonfocal/Grossly Intact
Data Reviewed
-
Labs: Labs Reviewed by me and Discussed with Patient
--- NOTE | 2024-06-11 16:00 | PTCARENOTE ---
reports received from Adrianna Spivey. spouse at bedside. pt remains on Levo drip infusing without issues. remains on monitors, THU Pitts. BC and labs obtained and sent. pt repositioned. awaiting transfer to IMU pending ready bed.
[2024-06-11] MEDS: NOVOLOG FLEXPEN-LOW RESISTANCE 1 UNITS SC (17:27)
[2024-06-11 17:37] LABS: Glucose - Point of Care 177 mg/dl (70-99)
[2024-06-11 17:57] LABS: TSH Reflex To Free T4 3.92 uIU/ml (0.47-4.68)
--- NOTE | 2024-06-11 18:12 | PTCARENOTE ---
verbal report provided to suzy from IMU. baron rinaldi dc. Core temp 97.3. pending transfer to IMU.
[2024-06-11 19:53] LABS: Mitochondrial M2 Ab, IgG 8.2 Units (0.0-24.9)
--- NOTE | 2024-06-11 20:00 | PTCARENOTE ---
Resumed care of pt AAOx2, with at bedside. Pt forgetful and confused at times. Pt restless in bed. Bed alarm in place. Hr in the 60's in NSR with 1st degree AV block. +1 pitting B/L LE edema noted. POX 95% on RA. Lungs dec, PONCE. Pt asking for
bed neri, did not move bowels at this time. 3way Rosenthal in place with CBI at trickle rate, draining clear. Pt has HD MWF and orders for HD for 06/12. Icteric skin/sclera. + bowel round dist abd, ascites. Sacral foam in place. Right IJ HD cath in place.
LUE int infusing Levophed @6mcg/min to keep MAP>65. Left hand int capped. Call shaffer in reach. Will continue to monitor.
[2024-06-11] MEDS: MELATONIN 5 MG PO (21:01)
[2024-06-11] MEDS: OCEAN, SALINE MIST 2 SPRAYS NASAL (21:14)
[2024-06-11 22:03] LABS: Glucose - Point of Care 137 mg/dl (70-99)
[2024-06-12] VITALS (48 sets, daily range): BP systolic 88–132; BP diastolic 47–88; BMI 23.5
[2024-06-12] MEDS: LEVOPHED 250 IV (00:24)
[2024-06-12] MEDS: ZOSYN 50 IV ×3 (04:30→21:14)
[2024-06-12 04:45] LABS: Hematocrit 23.6 % (39.0-52.0); Hemoglobin 7.7 g/dL (13.0-18.0); Mean Corp Hgb Conc. 32.6 g/dL (33.0-37.0); Mean Corpuscular Hgb 28.3 pg (27.0-31.0); Mean Corpuscular Volume 86.8 fL (80.0-94.0); Mean Platelet Volume 9.6 fL (7.4-10.4); Platelet Count 169 10^3/uL (130-400); Red Blood Cell Count 2.72 10^6/uL (4.70-6.10); Red Cell Dist. Width 15.7 % (11.5-14.5); White Blood Cell Count 12.1 10^3/uL (4.8-10.8)
[2024-06-12 05:14] LABS: Calcium 6.6 mg/dl (8.4-10.2)
[2024-06-12 05:15] LABS: ALT (SGPT) 99 U/L (0-50); AST (SGOT) 278 U/L (17-59); Albumin 1.9 g/dl (3.5-5.0); Blood Urea Nitrogen 37 mg/dl (9-20); Calcium 6.6 mg/dl (8.4-10.2); Carbon Dioxide 23 mmol/L (22-30); Chloride 96 mmol/L (98-107); Estimated Creatinine Clearance 12 ml/min; Glucose 131 mg/dl (70-99); Potassium 4.8 mmol/L (3.5-5.1); Sodium 131 mmol/L (135-145); Total Bilirubin 6.9 mg/dl (0.2-1.3); Total Protein 5.6 g/dl (6.3-8.2)
[2024-06-12 05:16] LABS: Vancomycin Random 16.3 ug/ml
[2024-06-12 05:29] LABS: Alkaline Phosphatase > 2400 U/L (38-126)
[2024-06-12 05:39] LABS: Cortisol, Random 51.6 ug/dl
[2024-06-12 08:11] LABS: Glucose - Point of Care 143 mg/dl (70-99)
[2024-06-12] MEDS: NOVOLOG FLEXPEN-LOW RESISTANCE SC ×3 (09:19→18:35)
[2024-06-12] MEDS: ZOLOFT 25 MG PO (09:20)
[2024-06-12] MEDS: ProAmatine 5 MG PO ×3 (09:20→18:03)
--- NOTE | 2024-06-12 09:29 | PHA.VAN.FU ---
Vancomycin Assessment / Plan
- Assessment
Hemodialysis Schedule: MWF
In the past 24 hrs, patient has been: Hypothermic
Concomitant Antimicrobials: piperacillin/tazobactam; fluconazole
- Assessment - Therapeutic Drug Monitoring
Random Level: 16.3 - last vanc dose 500 mg 06/11 08:11 (last HD 06/10)
- Dosing Plan
Continue: dosing by random level HD days
Dosing by Level: Re-dose today (500 mg x 1 dose post HD)
- Monitoring Plan
No level(s) ordered at this time: will order random level prior to next HD session Wed AM
- Follow Up
Pharmacy will continue to follow.
Vancomycin Follow UP
- -
Patient Age: 83
Patient Sex: Male
Vancomycin Day #: 3
Indication: Genito-Urinary Tract
Requesting Provider: Jayda
Height / Weight:
Height 5 ft 6 in
Actual Weight 66.1 kg
IBW in k.8
Adjusted BW in k.4
Pertinent Past Medical History: ESRD. HD MWF. HD initiated 04/2024.
- Vital Signs / Lab Results
Temp Pulse Resp BP Pulse Ox
96.9 F L 65 17 104/56 92
06/12/24 07:25 06/12/24 09:20 06/12/24 06:20 06/12/24 09:20 06/12/24 06:20
Lab Results - Hematology
06/09/24 06/10/24 06/11/24
11:41 04:10 03:24
WBC 8.7 10.4 12.0 H
06/12/24
04:05
WBC 12.1 H
Lab Results - Chemistry
06/09/24 06/09/24 06/10/24
11:41 22:30 04:10
BUN 43 H 47 H 50 H
Creatinine 5.5 H* 6.1 H* 6.5 H*
Estimated Creat Clear 8 8
Albumin 2.1 L 2.0 L 2.1 L
06/11/24 06/12/24
03:24 04:05
BUN 29 H 37 H
Creatinine 3.1 H 4.4 H*
Estimated Creat Clear 17 12
Albumin 2.0 L 1.9 L
06/09/24
22:30
Lactic Acid 1.1
Microbiology Results
06/10/24 08:42 MRSA Screen - Final
Nose No Methicillin Resistant Staphylococcus aureus isolated.
Therapeutic Drug Monitoring
Random Vancomycin 16.3 ug/ml 06/12/24 04:05
[2024-06-12 09:43] LABS: Vitamin D, 25-OH*** 15.2 ng/mL (30-80)
--- NOTE | 2024-06-12 10:01 | W.PN.GI.CBS2 ---
Today's Communication / Plan
-
Paracentesis today
Results of MRI d/w patient
Assessment / Plan
-
Abdullahi is an 83yo M with h/o DM and afib on eliquis with prolonged admission Nov to May 2024 with perforated duodenal ulcer s/p surgery 05/11 complicated by ESRD on HD. He was admitted from [facility] for syncope. GI consulted for elevated
LFTs. He denies abd pain. tells me no family h/o liver disease. Denies herbal or acetaminophen use. Zoloft is the only new med. Imaging abd US reviewed done 06/09 at [facility] moderate ascites and perinephric fluid
Impression
- Elevated LFTs in cholestatic pattern
Suspect cholestasis of sepsis and hypoperfusion given pressor requirement
MRI Abdomen 06/11 without acute pathology
Other consideration is infiltrative disease such as amyloid, lymphoma etc
- Leukocytosis, hypotension on levophed 06/09/24 and hypothermia
- Hematuria
- Anemia
- Syncope
- DM
- Afib on eliquis
- ESRD on HD
- H/o perforated DU s/p surgery 05/11
Recommendations
- C/w abx
- Infectious workup per primary team
- AP not able to be fractionated, GGT elevated suggestive of liver source
- SPEP and AMA pending
- Paracentesis with fluid studies and cytology. IR consult placed 06/09/24
- Appreciate urology recommendations
Will follow with you
Subjective
Subjective
Date of Service: June 12, 2024
Getting HD today. Levo on down to 4 currently. Denies abd pain, nausea/vomiting. Tolerating diet
Objective
Data Reviewed
Laboratory Data:
Laboratory Results
06/12/24 04:05
06/12/24 04:05
Laboratory Results
Total Bilirubin 6.9 mg/dl (0.2-1.3) H 06/12/24 04:05
AST 278 U/L (17-59) H 06/12/24 04:05
ALT 99 U/L (0-50) H 06/12/24 04:05
Alkaline Phosphatase > 2400 U/L (38-126) H 06/12/24 04:05
Vital Signs and I&O:
Vital Signs
Temp Pulse Resp BP Pulse Ox
96.9 F L 65 17 104/56 92
06/12/24 07:25 06/12/24 09:20 06/12/24 06:20 06/12/24 09:20 06/12/24 06:20
I&O
06/11/24 06/12/24 06/13/24
06:59 06:59 06:59
Intake Total 415.0 / 415.0 280 / 280
Output Total 115 / 115 -150 / -150
Balance 300.0 / 300.0 430 / 430
Physical Exam
Physical Exam
GEN: No acute distress, conversant, pleasant bear hugger on
HEENT: anicteric, extraocular movements intact, clear oropharynx without exudates
GI: soft, moderately-distended, not tender to palpation, normal active bowel sounds, no hepatosplenomegaly
EXT: warm, well perfused, 2+ edema bilaterally
NEURO: AAOx3, non-focal
--- NOTE | 2024-06-12 10:10 | CON.ID ---
Addendum entered and electronically signed by Amber Gaston MD 06/12/24 13:04:
Peritoneal fluid cell count 148 PMNs, not suggestive of peritonitis
Original Note:
Consultation
-
Date/Time Consultation Requested: 06/12/24 9:38
Date/Time Consultation Performed: 06/12/24 10:23
Requesting Provider: Dr Montelongo
Performing Provider: Dr Gaston
Reason for Consultation: syncope and Jaundice
Chief Complaint / Past History
Chief Complaint
syncope and Jaundice
History of Present Illness
Mr eB is an 83 year old male with history of recent diagnosis of ESRD now on HD, recent admission for Perforated duodenal ulcer with peritonitis s/p abdominal washout and repair of ulcer 05/12/24, note OR cultures with E faecium (R: amp, S:
vanc), course additionally notable for complicated UTI dueto [place] with bacteremia and right renal subcapsular hematoma vs seroma vs urinoma. For the peritonitis he completed 7 days of vancomycin and zosyn. For the complicated UTI completed
14 days of treatment initially with cefazolin, then completed on cefuroxime. He now represented for presyncope while in the bathroom - witnessed, weak and lightheaded, no injury. Pt reports no missed HD. RN felt that he appeared jaundiced.
Referred to the ER when he was found to have abdominal distension, no nausea, vomiting or abdominal pain. he has been intermittently hypothermic by core Ts, intermittently hypotensive requiring levophed to as high as 6 mcg/min, wbc on arrival 8.7
today 12, hgb 7.9, plt 248 today down to 169, mild L shift noted on arrival, na 131, K 5.3, cr 5.5, ca (uncorrected 6.7), t bili 6.2 today 6.9, ggt 1024, alk phos >2400, ast 288, alt 96, 1/ MRI abd with and w/o contrast: large volume ascites, no
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
liver biopsy being considered. Patient underwent paracentesis about 30 minutes ago - results pending. IgG, IgA, IgM levels are pending. Hep A/B/C serologies all negative - no evidence of prior infection or vaccination. HIV screen 06/10 negative.
No UA or current urine cultures have been done. Patient is currently on vancomycin, zosyn and fluconazole was added by nephrology service today for a culture about 3 weeks ago from the valverde with 100K yeast. Blood cultures were not sent on
admission. The patient had about 1.5 days of antibiotics (vanc/zosyn) before blood cultures were first sent late yesterday afternoon. Two sets were done at the same time. He has continued to receive HD with pressors though UF was limited given
hypotension. He had hematuria on eliquis and was started on CBI on 06/09. Repeat UA and culture were not done prior to this procedure. ID is consulted for assistance with management.
Past History
Additional Past Medical History:
CAD, HTN, IDDM and Renal failure
neurogenic bladder, hyperlipidemia
Past Surgical History: Cardiac (stenting)
Allergy History:
clopidogrel [From Plavix] Allergy (Verified 03/21/24 10:20)
Unknown
Medications Reviewed: Yes
Social History
Tobacco: Non-Smoker
Alcohol: None
Drug: None
Family History
Family History: Not Pertinent
Review of Systems
Review of Systems
General: Negative Fever or Chills
All systems: All other systems were reviewed and were negative
Vital Signs
Temp Pulse Resp BP Pulse Ox
96.9 F L 65 17 104/56 92
06/12/24 07:25 06/12/24 09:20 06/12/24 06:20 06/12/24 09:20 06/12/24 06:20
Physical Exam
Physical Exam
Constitutional: No Acute Distress
Head: Other (icteric sclera)
Cardiovascular: Regular Rate and S1/S2; Negative Murmur or Rub
Pulmonary: Clear and Symmetric; Negative Wheezes, Rales or Rhonchi
Gastrointestinal: Soft, Non Tender, Distended, Normal Bowel Sounds, No Rebound and No Guarding
Genito-Urinary: Valverde
Skin: Warm, Dry and Jaundice; Negative Rash
Wound: Other (surgical site, no erythema, no dehiscence or drainage)
Lines: HD Cath (in place no erythema, warmth, tenderness or drainage)
Lab / Diagnostic Study Results
06/12/24 04:05
06/12/24 04:05
Abs Immat Gran (auto) 0.0 10^3/uL (0-0.05) 06/09/24 11:41
Absolute Neuts (auto) 6.7 10^3/uL (1.4-6.5) H 06/09/24 11:41
Absolute Lymphs (auto) 0.9 10^3/uL (1.2-3.4) L 06/09/24 11:41
Absolute Monos (auto) 0.9 10^3/uL (0.1-0.6) H 06/09/24 11:41
Absolute Basos (auto) 0.0 10^3/uL (0-0.2) 06/09/24 11:41
Immature Gran % 0.5 % (0-0.5) 06/09/24 11:41
Neutrophils % 77.0 % (42.2-75.2) H 06/09/24 11:41
Lymphocytes % 10.8 % (20.5-51.1) L 06/09/24 11:41
Monocytes % 10.5 % (1.7-9.3) H 06/09/24 11:41
Eosinophils % 0.7 % (0-6) 06/09/24 11:41
Basophils % 0.5 % (0-2) 06/09/24 11:41
Lactic Acid 1.1 mmol/L (0.7-2.0) 06/09/24 22:30
Microbiology Results
Micro:
06/11/24 16:32 Blood Culture - Pending
Blood/Venous
06/11/24 16:32 Blood Culture - Pending
Blood/Venous
06/10/24 08:42 MRSA Screen - Final
Nose No Methicillin Resistant Staphylococcus aureus isolated.
Assessment / Plan
Shock - possibly septic
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
Anasarca
ESRD on HD
- spoke with Mona in the lab, they will put 10 ccs of ascitic fluid into blood culture bottles to maximize yield of ascitic fluid
- follow up body fluid studies and culture
- blood cultures x2 from 06/11 are in progress
- note midodrine, intermittent levophed use
- continue vancomycin and zosyn at that time
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
- note that last UA/urine culture obtained 05/21 (3 weeks ago), at that time, I do not see documentation that the valverde was exchanged. Since then, I do not see a repeat ua and culture. His previous valverde was exchanged to a 3 way this admission and
he was started on CBI
- reasonable to continue fluconazole at this time given available data, cannot definitively rule in or out CAUTI, I have increased dose to 200 mg qpm; I cannot get ID or sensi on culture from 3 weeks ago. Getting updated UA and culture unlikely to
be beneficial while on CBI.
- reassess QTC
[2024-06-12 12:23] LABS: Body Fluid Albumin 1.2 g/dl; Body Fluid Amylase 343 U/L; Body Fluid LDH 342 U/L; Body Fluid Mononuclear 62.6 %; Body Fluid Polymorphonuclear 37.4 %; Body Fluid Protein 3.6 g/dl; Body Fluid WBC 417 /CUMM
[2024-06-12 12:28] LABS: Body Fluid Second Tech AMA
[2024-06-12 12:50] LABS: Glucose - Point of Care 139 mg/dl (70-99)
[2024-06-12] MEDS: MANNITOL 25% 12.5 GRAMS IV ×2 (13:04→14:34)
[2024-06-12] MEDS: FLEXBUMIN 25% FOR HEMODIALYSIS 12.5 GRAMS IV ×2 (13:04→14:34)
[2024-06-12] MEDS: RETACRIT 10000 UNITS IV (13:04)
--- NOTE | 2024-06-12 13:24 | W.PN.HOSP.TC ---
Addendum entered and electronically signed by Eusebia Salamanca MD 06/12/24 18:22:
Updated on the phone
Total time spent 51 minutes
Addendum entered and electronically signed by Eusebia Salamanca MD 06/12/24 16:17:
I personally performed a history and physical exam of the patient and discussed management with the resident. I reviewed the resident's note and agree with the documented findings and plan of care HPI/CC.
A/P:
# Witnessed syncope preceded by prodroma lightheadedness, likely due to acute blood loss anemia from hematuria
no apparent injury
hold BP meds
if able check orthostatic VS
# mild hypovolemic vs septic shock (hypotensive, hypothermic) due to acute blood loss anemia from hematuria on Chronic anemia
transfused 1 unit pRBC for HGB of 7.8
Cont vanco/zosyn renally dosed
yeast in urine, Diflucan added by urology
Follow panculture
On Levophed which is being weaned
cannot use aggressive IVF with dialysis needs
TSH 3.92, random cortisol level 51.6
ID consult
# acute hematuria, resolved
s/p CBI with resolved hematuria
cont vanco/zosyn renally dosed
follow cultures
# Jaundice with Hyperbilirubinemia, appears new
# Elevated LFT
apprec GI, felt 2/2 cholestasis of sepsis and hypoperfusion given pressor requirement
hold statin
Follow LFTs
s/p ascites 1/6, no SBP noted
hepatitis serology negative, HIV negative
# ESRD
now on HD since last hospitalization
apprec renal input, HD per renal
# recent HX RUE DVT related to PICC
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
Consider repeat US
# HX new onset paroxysmal AF
holding Eliquis
Hold Carvedilol due to soft BP
# Essential HTN
Now in shock with levophed
restart BP meds when able
# HLD
Held Statin due to abnormal LFTs
Code: DNR
Original Note:
Today's Communication/Plan
-
.
Assessment / Plan
Assessment / Plan
1. Witnessed Syncopal Episode
- Single episode with prodromal lightheadedness
- No post-fall injury
- Fall precautions
- Patient admitted to ICU with telemetry orders
- Likely secondary to acute blood loss in the setting of hematuria
2. Hematuria
- Patient receiving CBI, current flow rate at trickle; draining nonbloody urine/water
- Possibly caused by CAUTI
- Urinalysis reflex to culture and sensitivities
- Yeast cultured on prior --> start Diflucan
- Continue Vancomycin and Zosyn empirically
- Urology consult; appreciate reccs
- Infectious Disease consult; appreciate recs
- Follow up ascites fluid studies/cx
- Continue Zosyn/Vanco
- Follow up BCx x 2 in progress from 06/11
3. Jaundice
- t - Bili 6.6 markedly elevated from prior admission, D- Bili 5.5
- Markedly elevated alk-phos, mildly elevated transaminitis
- Patient seen by GI, appreciate reccs
- Suspect cholestasis of sepsis and hypoperfusion given pressor requirement
- Suspect infiltrative disease given LFT pattern
- SPEP, AMA pending
- Paracentesis with fluid studies and cyto; consider liver bx (IR consult placed)
- Follwo up ascites fluid studies/cx
- Viral Hepatitis Serologies
- MR Abdomen: Limited evaluation 2/2 motion and large volume ascites. No bile duct dilation. 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 Moderate bilateral pleural effusions.
- Daily CMPs
- Hold Atorvastatin
4. ESRD Requiring HD
- Appreciated Nephro
- HD today
- Renal diet/renal dosing
5. Hypocalcemia
- High yang bath with HD today
- Ca 6.6; repeat in morning, correct and replete
- PTH pending
6. Chronic Anemia
- Blood consented and scanned; given 1 U pRBC yesterday; CBC 9.6 following, 8.7 this morning
- Trend CBC, replete for Hb < 8
7. Hx RUE CVT s/p PICC on last admission
- Repeat US no change since 05/15
8. Paroxysmal A-fib
- Continue Eliquis for now
- Hold Carvedilol for soft BP
9. Relative Hypotension
- Given Midodrine in ED; transfered to ICU; Levophed if needed; wean as appropriate
- TSH upper limit of normal
- Cortisol AM 51.6
10. Hyperlipidemia
- Hold statin 2/2 LFTs
11. Depression
- Sertraline/Melatonin for Sleep
12. Hypothermia
- Edison hugger
Anticipated Discharge: > 48 hours
Subjective/Interval History
-
Date of Service: June 12, 2024
Patient seen and examined while asleep in bed. Patient able to wake up to sound of voice but appears tired. When asked how he is feeling, just says 'fine'.
Objective Data
-
Labs:
Laboratory Results
06/12/24 06/12/24
04:05 04:05
WBC 12.1 H
Hgb 7.7 L
Hct 23.6 L
Plt Count 169
Sodium 131 L
Potassium 4.8
Chloride 96 L
Carbon Dioxide 23
BUN 37 H
Creatinine 4.4 H*
Glucose 131 H
Calcium 6.6 L* 6.6 L*
Total Bilirubin 6.9 H
AST 278 H
ALT 99 H
Alkaline Phosphatase > 2400 H
Vital Signs:
Vital Signs
Temp Pulse Resp BP Pulse Ox
98.0 F 66 15 107/51 94
06/12/24 12:45 06/12/24 12:52 06/12/24 12:10 06/12/24 12:52 06/12/24 12:10
I&O
06/11/24 06/12/24 06/13/24
06:59 06:59 06:59
Intake Total 415.0 / 415.0 280 / 280
Output Total 115 / 115 -150 / -150
Balance 300.0 / 300.0 430 / 430
Review of Systems
-
Unable to obtain full review of systems at this time due to: Other (somnolence)
History Source: Patient
Physical Exam
-
General: No Apparent Distress and Appears Chronically Ill
HEENT: Other (scleral icterus)
Respiratory: Clear to Auscultation
Cardiac: Regular Rhythm and S1/S2
GI: Soft and Distended
Genito-urinary: Continuous Bladder Irrigation (at trickle, clear urine/water in bag)
Musculoskeletal: No Clubbing, No Cyanosis and Other (1+ edema bilaterally)
Skin: Warm and Jaundice
Data Reviewed
-
Labs: Labs Reviewed by me
--- NOTE | 2024-06-12 13:38 | WOUNDNOTE ---
WOC RN NOTE: Received WOC RN consult for stage 2 to sacrum. Patient currently receiving dialysis and cannot be turned for assessment. Will return when not receiving dialysis.
--- NOTE | 2024-06-12 13:57 | W.PN.NEPH.HD ---
Assessment
-
patient seen on HD
[id number]
too unstable for u/f on both midodrine and levophed
not sure patient is viable HD patient as outpatient
Progress Note - Hemodialysis
-
Date of Service: June 12, 2024
Duration: 30 minutes and 3 hours
Potassium Bath: 2
Calcium Bath: 3
Opti-Dialyzer: 160
Ultrafiltration: Other (even)
Blood Flow: 400
Dialysate Flow: 600
Heparin: none
EPO: 10,000
[2024-06-12] MEDS: VANCOCIN HCL 500 MG 100 IV (15:13)
--- NOTE | 2024-06-12 15:42 | PTCARENOTE ---
Assumed care of pt this am Received pt who is drowsy but arousable. Sinus alma rosa with first degree av block. No current complaint of pain. He was hungry but on NPO status for paracentesis. Diet reordered after procedure was completed. Resp shallow
and even on room air. pulse ox >90%. HD initiated at noon by HD nurse. Bedside Paracentesis completed by [facility] staff prior to HD. This RN spoke with pt's this am and updated her on plan of care. Pt received on 4 mcg of Levophed, pt is currently
down to 3mcg of Levophed, will wean as tolerated.
[2024-06-12] MEDS: DIFLUCAN 200 MG PO (18:03)
[2024-06-12 18:20] LABS: Glucose - Point of Care 108 mg/dl (70-99)
[2024-06-12 21:18] LABS: IgA 726 mg/dL (68-408); IgG 1746 mg/dL (768-1632); IgM 65 mg/dL (35-263)
[2024-06-12 21:51] LABS: Glucose - Point of Care 103 mg/dl (70-99)
[2024-06-12] MEDS: MELATONIN PO (22:02)
[2024-06-12 22:12] LABS: Albumin 1.72 g/dL (3.75-5.01); Alpha 1 Globulin 0.43 g/dL (0.19-0.46); Alpha 2 Globulin 0.83 g/dL (0.48-1.05); SPEP IFE Reflex IFE Done; Total Protein-Electrophoresis 5.6 g/dL (6.3-8.2)
[2024-06-13] VITALS (20 sets, daily range): BP systolic 76–102; BP diastolic 47–74; BMI 22.4
--- NOTE | 2024-06-13 00:52 | PTCARENOTE ---
Caring for patient overnight. aaoax2, arousable to touch. Very drowsy. CBI running slow to keep clear. Denies pain. Remains on RA. NSR 1st degree block. Ascites, distended, round. +1-2 anasarca. R HD cath. BP's stable at this time, levo has been
off. Q2T. BA on. IV ABX. Call shaffer in reach. Will monitor.
[2024-06-13] MEDS: ZOSYN 50 IV ×2 (04:21→13:15)
[2024-06-13 05:13] LABS: Hemoglobin 9.2 g/dL (13.0-18.0); Mean Corp Hgb Conc. 32.9 g/dL (33.0-37.0); Mean Corpuscular Hgb 28.6 pg (27.0-31.0); Red Blood Cell Count 3.22 10^6/uL (4.70-6.10); Red Cell Dist. Width 15.4 % (11.5-14.5); White Blood Cell Count 9.6 10^3/uL (4.8-10.8)
[2024-06-13 05:37] LABS: ALT (SGPT) 89 U/L (0-50); AST (SGOT) 257 U/L (17-59); Albumin 1.9 g/dl (3.5-5.0); Alkaline Phosphatase 2317 U/L (38-126); Blood Urea Nitrogen 26 mg/dl (9-20); Calcium 6.9 mg/dl (8.4-10.2); Carbon Dioxide 22 mmol/L (22-30); Chloride 98 mmol/L (98-107); Estimated Creatinine Clearance 16 ml/min; Glucose 95 mg/dl (70-99); Potassium 4.2 mmol/L (3.5-5.1); Sodium 131 mmol/L (135-145); Total Bilirubin 7.4 mg/dl (0.2-1.3); Total Protein 5.2 g/dl (6.3-8.2); eGFR 19.33
[2024-06-13 07:10] LABS: Mean Platelet Volume 10.5 fL (7.4-10.4); Platelet Count 87 10^3/uL (130-400)
[2024-06-13 08:03] LABS: Glucose - Point of Care 92 mg/dl (70-99)
--- NOTE | 2024-06-13 08:40 | PHA.VAN.FU ---
Vancomycin Assessment / Plan
- Assessment
Hemodialysis Schedule: MWF
Last Hemodialysis performed: Mon 06/12
WBC's are: WNL
Concomitant Antimicrobials: piperacillin/tazobactam, fluconazole
- Dosing Plan
Dosing by Level: Hold off on dosing today
- Monitoring Plan
Random Level: 06/14 prior to HD
- Follow Up
Pharmacy will continue to follow.
Vancomycin Follow UP
- -
Patient Age: 83
Patient Sex: Male
Vancomycin Day #: 4
Indication: Genito-Urinary Tract
Requesting Provider: Dr. Montelongo (resident) / Dr. Gaston
Pertinent Antimicrobial Allergies:
no pertinent antibiotic allergies
Height / Weight:
Height 5 ft 6 in
Actual Weight 63 kg
IBW in k.8
Adjusted BW in k.4
Pertinent Past Medical History: ESRD on HD MWF
- Vital Signs / Lab Results
Temp Pulse Resp BP Pulse Ox
97.4 F 59 12 93/47 93
06/13/24 07:29 06/13/24 08:00 06/13/24 08:00 06/13/24 08:00 06/13/24 08:00
Lab Results - Hematology
06/11/24 06/12/24 06/13/24
03:24 04:05 04:19
WBC 12.0 H 12.1 H 9.6
Lab Results - Chemistry
06/11/24 06/12/24 06/13/24
03:24 04:05 04:19
BUN 29 H 37 H 26 H
Creatinine 3.1 H 4.4 H* 3.1 H
Estimated Creat Clear 17 12 16
Albumin 2.0 L 1.9 L 1.9 L
Microbiology Results
06/11/24 16:32 Blood Culture - Preliminary
Blood/Venous No Growth in 24 hours- Final report to follow
06/11/24 16:32 Blood Culture - Preliminary
Blood/Venous No Growth in 24 hours- Final report to follow
06/12/24 10:56 Gram Stain - Preliminary
Peritoneal Fluid
06/10/24 08:42 MRSA Screen - Final
Nose No Methicillin Resistant Staphylococcus aureus isolated.
Therapeutic Drug Monitoring
Random Vancomycin 16.3 ug/ml 06/12/24 04:05
--- NOTE | 2024-06-13 08:41 | W.PN.GI.CBS2 ---
Today's Communication / Plan
-
-Significant elevation in alkaline phosphatase and total bilirubin without evidence of biliary ductal obstruction, cholestatic picture.
Likely related to sepsis. Hepatitis serologies negative, AMA negative
- C/w abx
-No evidence of SBP on paracentesis
-Discussed with hospitalist team, wants to discuss goals of care.
No further GI workup at this time. Will sign off. Please call back if needed.
Assessment / Plan
-
Abdullahi is an 83yo M with h/o DM and afib on eliquis with prolonged admission Nov to May 2024 with perforated duodenal ulcer s/p surgery 05/11 complicated by ESRD on HD. He was admitted from [facility] for syncope. GI consulted for elevated
LFTs. He denies abd pain. tells me no family h/o liver disease. Denies herbal or acetaminophen use. Zoloft is the only new med. Imaging abd US reviewed done 06/09 at [facility] moderate ascites and perinephric fluid
Impression
- Elevated LFTs in cholestatic pattern
Suspect cholestasis of sepsis and hypoperfusion given pressor requirement
MRI Abdomen 06/11 without acute pathology
Other consideration is infiltrative disease such as amyloid, lymphoma etc
- Leukocytosis, hypotension on levophed 06/09/24 and hypothermia
- Hematuria
- Anemia
- Syncope
- DM
- Afib on eliquis
- ESRD on HD
- H/o perforated DU s/p surgery 05/11
Recommendations
-Significant elevation in alkaline phosphatase and total bilirubin without evidence of biliary ductal obstruction, cholestatic picture.
Likely related to sepsis. Hepatitis serologies negative, AMA negative
- C/w abx
-No evidence of SBP on paracentesis
-Discussed with hospitalist team, wants to discuss goals of care.
No further GI workup at this time. Will sign off. Please call back if needed.
Subjective
Subjective
Date of Service: June 13, 2024
No fevers or chills. Patient denies any abdominal pain but says he does not feel great. On diabetic diet.
Objective
Data Reviewed
Laboratory Data:
Laboratory Results
06/13/24 04:19
06/13/24 04:19
Laboratory Results
Total Bilirubin 7.4 mg/dl (0.2-1.3) H 06/13/24 04:19
AST 257 U/L (17-59) H 06/13/24 04:19
ALT 89 U/L (0-50) H 06/13/24 04:19
Alkaline Phosphatase 2317 U/L (38-126) H 06/13/24 04:19
Vital Signs and I&O:
Vital Signs
Temp Pulse Resp BP Pulse Ox
97.4 F 59 12 93/47 93
06/13/24 07:29 06/13/24 08:00 06/13/24 08:00 06/13/24 08:00 06/13/24 08:00
I&O
06/12/24 06/13/24 06/14/24
06:59 06:59 06:59
Intake Total 280 / 280 680 / 680
Output Total -150 / -150 400 / 400
Balance 430 / 430 280 / 280
Physical Exam
Physical Exam
GI: Soft and Non Tender
Extremities: Edema
--- NOTE | 2024-06-13 08:42 | PN.CDI ---
CDI
- -
CDI:
Physician Documentation Request
Admit Date: 06/09/24 13:17
Dear Doctor,
Please review the following and provide your response in the progress notes.
Clinical Indicators:
- RN skin assessments indicate:
- Stage 2 left buttock pressure injury, POA
- Stage 2 sacrum pressure injury, POA
Physician documentation of the type and location of wounds is required for compliant documentation. Based on the above clinical findings and your assessment, please provide the following in your progress note:
1. Location of the ulcer/wound, including laterality.
2. Type (etiology) of ulcer/wound:
- Diabetic ulcer
- Arterial (ischemic) ulcer
- Traumatic wound
- Pressure (decubitus) ulcer
- Other
Use of terms such as suspected, likely, concern for, or probable (associated with a specific diagnosis that is being evaluated, monitored, or treated as if it exists) are acceptable and can be coded in the inpatient setting, when documented at the
time of discharge.
Thank you,
Ella Cota RN
CDI Specialist
Please use your independent medical judgment in providing your response.
*Source: National Pressure Ulcer Advisory Panel (NPUAP)
--- NOTE | 2024-06-13 08:49 | W.PN.URO.CBU ---
Today's Communication / Plan
-
keep valverde d/c cbi
Assessment / Plan
-
chronic urinary retention
hematuria -- YEAST CAUTI cleared stop cbi but need valverde
Diagnosis
-
Date of Service: June 13, 2024
-
Patient Diagnosis:
Post Op Day:
Patient Diagnosis:
chronic urinary retention
hematuria -- YEAST CAUTI
Subjective
-
sleepy
Objective
-
Vital Signs
Temp Pulse Resp BP Pulse Ox
97.4 F 59 12 93/47 93
06/13/24 07:29 06/13/24 08:00 06/13/24 08:00 06/13/24 08:00 06/13/24 08:00
Intake and Output
06/12/24 06/13/24 06/14/24
06:59 06:59 06:59
Intake Total 280 / 280 680 / 680
Output Total -150 / -150 400 / 400
Balance 430 / 430 280 / 280
Intake:
Oral fluids 480 / 480
IV fluids (Total) 180 / 180
IV piggybacks 100 / 100 200 / 200
Output:
True Urine Output from CBI -150 / -150 400 / 400
Laboratory Results
06/13/24 04:19
06/13/24 04:19
Review of Systems
-
: Difficulty Voiding
Physical Exam
-
General - well developed, well nourished, no acute distress
Chest - clear bilaterally
Abdomen - soft, non-tender, positive bowel sounds, no CVAT, no incisional pain or distention
Genitalia - normal
Rectal - normal
Skin - warm & dry with no rash
Neuro - AOx3, no motor deficits
Extremities - no clubbing, no cyanosis, no edema
Incision - clean, dry
Dressing - clean, dry, intact
Care Review
Data Reviewed
Discussed with: Nursing
--- NOTE | 2024-06-13 09:11 | W.PN.ID1 ---
Date of Service
Date of Service: June 13, 2024
Today's Communication
Would agree with consideration of hospice, if patient transitions to hospice would stop antibiotics/antifungals
Assessment / Plan
Shock - possibly septic - improving
Cholestasis vs Infiltrative Liver Disease
Anasarca
ESRD on HD
- peritoneal fluid not consistent with SBP
- peritoneal fluid cultures in progress - no growth to date
- blood cultures x2 from 06/11 are in progress - no growth to date
- note midodrine use, levophed weaned off
- continue vancomycin and zosyn at that time
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
- CBI was stopped this AM
- repeat UA and culture tomorrow AM if consistent with goals of care
- note that last UA/urine culture obtained 05/21 (3 weeks ago), at that time, I do not see documentation that the valverde was exchanged. Since then, I do not see a repeat ua and culture. His previous valverde was exchanged to a 3 way this admission and
he was started on CBI
- reasonable to continue fluconazole at this time given available data, cannot definitively rule in or out CAUTI, I have increased dose to 200 mg qpm; I cannot get ID or sensi on culture from 3 weeks ago. Getting updated UA and culture unlikely to
be beneficial while on CBI.
- reassess QTC
Would agree with consideration of hospice, if patient transitions to hospice would stop antibiotics/antifungals
Chief Complaint
-: Clinical Sepsis
Subjective / Review of Systems
intermittent hypothermia ongoing
norepi weaned off yesterday afternoon, midodrine continues
no ultrafiltration preformed yesterday given need for two pressors
goals of care conversations initiated by
Vital Signs / Physical Exam
Vital Signs
Vital Signs
Temp Pulse Resp BP Pulse Ox
97.4 F 59 12 93/47 93
06/13/24 07:29 06/13/24 08:00 06/13/24 08:00 06/13/24 08:00 06/13/24 08:00
Physical Exam
Constitutional: Acutely Ill and Chronically Ill
Cardiovascular: Regular Rate and S1/S2; Negative Murmur or Rub
Pulmonary: Clear and Symmetric; Negative Wheezes or Rales
Gastrointestinal: Soft, Non Tender, Non Distended and Normal Bowel Sounds
Skin: Warm and Dry; Negative Rash or Jaundice
Neurological: Awake
Objective Data
Lab Data
Lab Results
06/13/24 04:19
06/13/24 04:19
Estimated Creat Clear 16 ml/min 06/13/24 04:19
Lactic Acid 1.1 mmol/L (0.7-2.0) 06/09/24 22:30
Total Bilirubin 7.4 mg/dl (0.2-1.3) H 06/13/24 04:19
GGT 1024 U/L (15-73) H 06/09/24 11:41
AST 257 U/L (17-59) H 06/13/24 04:19
ALT 89 U/L (0-50) H 06/13/24 04:19
Alkaline Phosphatase 2317 U/L (38-126) H 06/13/24 04:19
Most recent labs reviewed.
Micro Results:
06/11/24 16:32 Blood Culture - Preliminary
Blood/Venous No Growth in 24 hours- Final report to follow
06/11/24 16:32 Blood Culture - Preliminary
Blood/Venous No Growth in 24 hours- Final report to follow
06/12/24 10:56 Body Fluid Culture - Pending
Peritoneal Fluid Gram Stain - Preliminary
06/10/24 08:42 MRSA Screen - Final
Nose No Methicillin Resistant Staphylococcus aureus isolated.
Care Review
Plan reviewed with: Physician (Dr Salamanca, Dr Cuenca - hospice)
[2024-06-13] MEDS: ProAmatine 5 MG PO ×2 (10:05→13:16)
[2024-06-13] MEDS: ZOLOFT 25 MG PO (10:05)
[2024-06-13] MEDS: NOVOLOG FLEXPEN-LOW RESISTANCE SC ×3 (10:06→18:23)
--- NOTE | 2024-06-13 10:13 | W.PN.NEPH.PH ---
Today's Communication / Plan
-
No more dialysis
Patient to be for hospice
Assessment/Plan
-
Assessment:
Witnessed syncope preceded by prodroma lightheadedness
Painless jaundice
elevated LFTs
ESRD on HD
Chronic anemia
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
paroxysmal AF
Essential HTN
HLD
Neurogenic bladder with bilat hydro-chr valverde
Coronary artery disease s/p stent
h/o Duodenal ulcer perforation-s/p repair 05/2024
Plan:
Remains hypotensive
We were unable to effectively UF patient over past 2 days dialysis treatments due to hemodynamic instability
MRI noted ascites and pleural effusion -UF as tolerates but limited by low BPs, add midodrine
mild hematuria in valverde-on CBI- follows , suspect UTI
Hypocalcemia persist ,corrected borderline ,low-check vit D (low at 15.2) and PTH still pending, 3 calcium bath utilized on HD
renal diet and FR
Unfortunately I am not confident the patient is an acceptable dialysis candidate as we are unable to effectively manage his volume status with ultrafiltration due to compromised hemodynamics despite 3 times daily midodrine administration and Levophed
Hospice care would be more appropriate
Discussed with
No more dialysis would be performed
-
-
Date of Service: June 13, 2024
CC / HPI / ROS
-
Chief Complaint:
ESRD
History of Present Illness:
anuric on valverde,
BP soft off pressors but maintained on midodrine
yang low 6.9
Review of Systems:
offers no pain
Feels tired , no sob
Labs
-
Labs:
WBC 9.6 10^3/uL (4.8-10.8) 06/13/24 04:19
RBC 3.22 10^6/uL (4.70-6.10) L 06/13/24 04:19
Hgb 9.2 g/dL (13.0-18.0) L 06/13/24 04:19
Hct 28.0 % (39.0-52.0) L 06/13/24 04:19
Plt Count 87 10^3/uL (130-400) L D 06/13/24 04:19
Sodium 131 mmol/L (135-145) L 06/13/24 04:19
Potassium 4.2 mmol/L (3.5-5.1) 06/13/24 04:19
Chloride 98 mmol/L (98-107) 06/13/24 04:19
Carbon Dioxide 22 mmol/L (22-30) 06/13/24 04:19
BUN 26 mg/dl (9-20) H 06/13/24 04:19
Creatinine 3.1 mg/dL (0.7-1.3) H 06/13/24 04:19
eGFR 19.33 06/13/24 04:19
Glucose 95 mg/dl (70-99) 06/13/24 04:19
Calcium 6.9 mg/dl (8.4-10.2) L* 06/13/24 04:19
Albumin 1.9 g/dl (3.5-5.0) L 06/13/24 04:19
Physical Exam
-
Vital Signs:
Vital Signs
Temp Pulse Resp BP Pulse Ox
97.4 F 59 12 93/47 93
06/13/24 07:29 06/13/24 08:00 06/13/24 08:00 06/13/24 08:00 06/13/24 08:00
Cardiovascular:: Regular rate and rhythm
Respiratory:: Bilateral: CTA (anteriorly)
Lung Excursion:: Normal
Abdomen:: Distended, Nontender and Soft
Extremity Edema:: +1: Bilateral:
Valverde Catheter: Yes
[2024-06-13 11:56] LABS: Glucose - Point of Care 96 mg/dl (70-99)
[2024-06-13 12:21] LABS: Intact PTH 214.4 pg/ml (13.6-85.8)
[2024-06-13] MEDS: FLUSH (NSS) 2 FLUSH IV (13:16)
--- NOTE | 2024-06-13 13:26 | W.PN.HOSP.TC ---
Addendum entered and electronically signed by Eusebia Salamanca MD 06/13/24 14:41:
I personally performed a history and physical exam of the patient and discussed management with the resident. I reviewed the resident's note and agree with the documented findings and plan of care HPI/CC.
A/P:
# Witnessed syncope preceded by prodroma lightheadedness, likely due to acute blood loss anemia from hematuria
no apparent injury
hold BP meds
Clinically too weak to check orthostatic vital sign
# mild hypovolemic vs septic shock (hypotensive, hypothermic), due to acute blood loss anemia from hematuria on chronic anemia
s/p 1 unit PRBC transfusion, Hgb stable at 9.2 today
Cont vanco/zosyn renally dosed
yeast in urine, Diflucan added by urology
blood culture negative
Intermittent use of pressor Levophed
TSH 3.92, random cortisol level 51.6
ID on board
# acute hematuria, resolved
s/p CBI with resolved hematuria
# Jaundice with Hyperbilirubinemia, appears new
# Elevated LFT
apprec GI, felt 2/2 cholestasis of sepsis and hypoperfusion given pressor requirement
hold statin
Follow LFTs
s/p ascites 06/12, no SBP noted
hepatitis serology negative, HIV negative
# ESRD
now on HD since last hospitalization
apprec renal input, unfortunately patient no longer a candidate to continue hemodialysis due to severe clinical deterioration
# recent HX RUE DVT related to PICC
[employer] Eliquis on hold 2/2 hematuria
# HX new onset paroxysmal AF
holding Eliquis
Hold Carvedilol due to soft BP
# Essential HTN
Now in shock with levophed
restart BP meds when able
# HLD
Held Statin due to abnormal LFTs
Code: DNR
Extensive discussion with in person. Goals of care discussed. She is agreeable with comfort measures. Stop therapeutic medications including antibiotics/pressor support etc.
Original Note:
Today's Communication/Plan
-
.
Assessment / Plan
Assessment / Plan
1. Witnessed Syncopal Episode
- Single episode with prodromal lightheadedness
- No post-fall injury
- Fall precautions
- Patient admitted to ICU with telemetry orders
- Likely secondary to acute blood loss in the setting of hematuria
2. Hematuria
- Patient receiving CBI, current flow rate at trickle; draining nonbloody urine/water
- Possibly caused by CAUTI
- Urinalysis reflex to culture and sensitivities
- Yeast cultured on prior --> start Diflucan
- Continue Vancomycin and Zosyn empirically
- Urology consult; appreciate reccs
- Infectious Disease consult; appreciate recs
- Follow up ascites fluid studies/cx
- Continue Zosyn/Vanco
- Follow up BCx x 2 in progress from 06/11
3. Jaundice
- t - Bili 6.6 markedly elevated from prior admission, D- Bili 5.5
- Markedly elevated alk-phos, mildly elevated transaminitis
- Patient seen by GI, appreciate reccs
- Suspect cholestasis of sepsis and hypoperfusion given pressor requirement
- Suspect infiltrative disease given LFT pattern
- SPEP, AMA pending
- Paracentesis with fluid studies and cyto; consider liver bx (IR consult placed)
- Follwo up ascites fluid studies/cx
- Viral Hepatitis Serologies
- MR Abdomen: Limited evaluation 2/2 motion and large volume ascites. No bile duct dilation. 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 Moderate bilateral pleural effusions.
- Daily CMPs
- Hold Atorvastatin
4. ESRD Requiring HD
- Appreciate Nephro
- Unable to ultrafiltrate the patient x 2; due to hemodynamic instability; patient no longer a candidate for HD
- Renal diet/renal dosing
- Primary Team to discuss hospice with and patient
5. Hypocalcemia
- High yang bath with HD today
- Ca 6.6; repeat in morning, correct and replete
- PTH pending
6. Chronic Anemia
- Blood consented and scanned; given 1 U pRBC yesterday; CBC 9.6 following, 8.7 this morning
- Trend CBC, replete for Hb < 8
7. Hx RUE CVT s/p PICC on last admission
- Repeat US no change since 05/15
8. Paroxysmal A-fib
- Continue Eliquis for now
- Hold Carvedilol for soft BP
9. Relative Hypotension
- Given Midodrine in ED; transfered to ICU; Levophed if needed; wean as appropriate
- TSH upper limit of normal
- Cortisol AM 51.6
10. Hyperlipidemia
- Hold statin 2/2 LFTs
11. Depression
- Sertraline/Melatonin for Sleep
12. Hypothermia
- Edison hugger
Dr. Salamanca has had a goals of care diiscussion with the and patient. Both are amenable to hospice. Refer to attending addendum for details.
Anticipated Discharge: 24 - 48 hours
Subjective/Interval History
-
Date of Service: June 13, 2024
Patient seen and examined while sleeping in bed. When asked how he is feeling today, only responds 'tired'. Does not endorse any pain.
Objective Data
-
Labs:
Laboratory Results
06/13/24
04:19
WBC 9.6
Hgb 9.2 L
Hct 28.0 L
Plt Count 87 L D
Sodium 131 L
Potassium 4.2
Chloride 98
Carbon Dioxide 22
BUN 26 H
Creatinine 3.1 H
Glucose 95
Calcium 6.9 L*
Total Bilirubin 7.4 H
AST 257 H
ALT 89 H
Alkaline Phosphatase 2317 H
Vital Signs:
Vital Signs
Temp Pulse Resp BP Pulse Ox
97.4 F 57 13 93/53 95
06/13/24 07:29 06/13/24 13:00 06/13/24 13:00 06/13/24 13:00 06/13/24 13:00
I&O
06/12/24 06/13/24 06/14/24
06:59 06:59 06:59
Intake Total 280 / 280 680 / 680 435 / 435
Output Total -150 / -150 400 / 400 50 / 50
Balance 430 / 430 280 / 280 385 / 385
Review of Systems
-
Unable to obtain full review of systems at this time due to: Acuity
Physical Exam
-
General: Comfortable and Other (somnolent)
HEENT: Normocephalic and Atraumatic
Respiratory: Clear to Auscultation
Cardiac: Regular Rhythm and S1/S2
GI: Soft and Nontender
Skin: Warm and Dry
Neuro: Other (somnolent)
Psych: Calm
Data Reviewed
-
Labs: Labs Reviewed by me
--- NOTE | 2024-06-13 14:29 | WOUNDNOTE ---
WOC RN NOTE: WOC RN consult received for worsening buttock wound. Per chart review, patient will be placed on hospice. Will sign off. Resident made aware.
--- NOTE | 2024-06-13 15:12 | PTCARENOTE ---
Patient transferred to comfort measures. CBI discontinued this AM as per urology, 3-way catheter to stay in place urology determination. Sacral foam intact. in room at bedside.
--- NOTE | 2024-06-13 16:14 | CM ---
Patient from [facility] with Hx ESRD on HD. Per nephrology notes, no further HD. Comfort Care.
Message from Dr Salamanca patient to remain here in comfort care.
Met with patient who was sleeping.
Met with Monica, son PARI Nash and 2 grand-children in [facility];
stating she understood that her would be staying here in comfort care, and she seemed to be understanding & accepting his status.
Son asked numerous questions including whether pressors would be given, and if anything else could be done for him. Provided explanations of comfort care and that patient would remain here at as he was not stable for d/c to SNF, and he appeared
to accept/understand.
Provided emotional support and offered Conveyor Feeder - shared that patient was Caodaism and he would not want that.
Plan comfort care.
--- NOTE | 2024-06-13 18:15 | PTCARENOTE ---
Report given to Navya CASSIDY. Patient transferred to [address] [place] [address] in bed to room 7827.
--- NOTE | 2024-06-13 18:47 | PTCARENOTE ---
pt transferred to on comfort. family at bedside. and son requesting to speak to hospice in the morning if someone can contact judy when the arrives. passing along in report
[2024-06-13] MEDS: ATIVAN 0.5 MG PO (22:04)
[2024-06-13] MEDS: MELATONIN PO (22:06)
[2024-06-14 07:00] VITALS: BP 94/68
[2024-06-14] MEDS: NOVOLOG FLEXPEN-LOW RESISTANCE SC ×3 (07:22→16:46)
[2024-06-14] MEDS: ZOLOFT PO (08:17)
[2024-06-14 08:23] VITALS: BP 94/68
--- NOTE | 2024-06-14 09:01 | CM ---
Case management consult completed for hospice eval.
spoke with Monica & prefer hospice
tt Estela Bradley
referral placed in [facility]
PLAN: hospice eval
--- NOTE | 2024-06-14 09:48 | W.PN.UPDATE ---
Update Note
Progress Note Update
Has transitioned to hospice, antibiotics/antifungals stopped
ID service will no longer actively follow this patient please recall for further questions
--- NOTE | 2024-06-14 11:28 | HOSPNOTE ---
Met with family and discussed inpatient hospice. At this time the patient will remain on comfort care and all medications discontinued except comfort medications. Will continue to follow daily to see if patient meets inpatient hospice criteria.
Attending and Resident updated. Spouse has my card for any further questions or concerns.
--- NOTE | 2024-06-14 12:08 | W.PN.URO.CBU ---
Today's Communication / Plan
-
no additional vcare leave valverde
Assessment / Plan
-
chronic urinary retention
hematuria -- YEAST CAUTI cleared stop cbi but need valverde
near spoke with hfamily at bedside
Diagnosis
-
Date of Service: June 14, 2024
-
Patient Diagnosis:
Post Op Day:
Patient Diagnosis:
Post Op Day:
Patient Diagnosis:
chronic urinary retention
hematuria -- YEAST CAUTI
Subjective
-
somnolent hospice
Objective
-
Vital Signs
Temp Pulse Resp BP Pulse Ox
96.1 F L 56 14 94/68 97
06/14/24 07:00 06/14/24 07:00 06/14/24 07:00 06/14/24 07:00 06/14/24 08:00
Intake and Output
06/13/24 06/14/24 06/15/24
06:59 06:59 06:59
Intake Total 680 / 680 435 / 435
Output Total 400 / 400 50 / 50
Balance 280 / 280 385 / 385
Intake:
Oral fluids 480 / 480 385 / 385
IV piggybacks 200 / 200 50 / 50
Output:
True Urine Output from CBI 400 / 400 50 / 50
Laboratory Results
06/13/24 04:19
06/13/24 04:19
Review of Systems
-
Unable to obtain full review of systems at this time due to: Patient Non-verbal
Physical Exam
-
General - well developed, well nourished, no acute distress
Chest - clear bilaterally
Abdomen - soft, non-tender, positive bowel sounds, no CVAT, no incisional pain or distention
Genitalia - normal
Rectal - normal
Skin - warm & dry with no rash
Neuro - AOx3, no motor deficits
Extremities - no clubbing, no cyanosis, no edema
Incision - clean, dry
Dressing - clean, dry, intact
Care Review
Data Reviewed
Discussed with: Family
--- NOTE | 2024-06-14 12:25 | W.PN.HOSP.TC ---
Addendum entered and electronically signed by Cruzito Montelongo DO, Resident 06/15/24 09:49:
- Stage 2 left buttock pressure decubitus ulcer
- Stage 2 sacral decubitus ulcer
Addendum entered and electronically signed by Eusebia Salamanca MD 06/14/24 13:57:
I personally performed a history and physical exam of the patient and discussed management with the resident. I reviewed the resident's note and agree with the documented findings and plan of care HPI/CC.
# Severe clinical decompensation/deconditioning
Continue comfort measures
Patient appears to be actively dying
Provided emotional support to
Original Note:
Today's Communication/Plan
-
Patient transitioned to comfort care measures. Support given to family.
Assessment / Plan
Assessment / Plan
1. Witnessed Syncopal Episode
- Single episode with prodromal lightheadedness
- No post-fall injury
- Fall precautions
- Patient admitted to ICU with telemetry orders
- Likely secondary to acute blood loss in the setting of hematuria
2. Hematuria
- Patient receiving CBI, current flow rate at trickle; draining nonbloody urine/water
- Possibly caused by CAUTI
- Urinalysis reflex to culture and sensitivities
- Yeast cultured on prior --> start Diflucan
- Continue Vancomycin and Zosyn empirically
- Urology consult; appreciate reccs
- Infectious Disease consult; appreciate recs
- Follow up ascites fluid studies/cx
- All Abx discontinued, patient on comfort care measures
3. Jaundice
- t - Bili 6.6 markedly elevated from prior admission, D- Bili 5.5
- Markedly elevated alk-phos, mildly elevated transaminitis
- Patient seen by GI, appreciate reccs
- Suspect cholestasis of sepsis and hypoperfusion given pressor requirement
- Suspect infiltrative disease given LFT pattern
- SPEP, AMA pending
- Paracentesis with fluid studies and cyto; consider liver bx (IR consult placed)
- Follwo up ascites fluid studies/cx
- Viral Hepatitis Serologies
- MR Abdomen: Limited evaluation 2/2 motion and large volume ascites. No bile duct dilation. 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 Moderate bilateral pleural effusions.
- Workup discontinued, pateint on comfort measures.
4. ESRD Requiring HD
- Appreciate Nephro
- Unable to ultrafiltrate the patient x 2; due to hemodynamic instability; patient no longer a candidate for HD
- Renal diet/renal dosing
- Primary Team to discuss hospice with and patient
6. Chronic Anemia
- Daily CBCs discontinued
7. Hx RUE CVT s/p PICC on last admission
- Repeat US no change since 05/15
8. Paroxysmal A-fib
- Discontinue medications, on comfort measures
9. Relative Hypotension
- Given Midodrine in ED; transfered to ICU; Levophed if needed; wean as appropriate
- TSH upper limit of normal
- Cortisol AM 51.6
10. Hyperlipidemia
- Hold statin 2/2 LFTs
11. Depression
- Sertraline/Melatonin for Sleep
12. Hypothermia
- Edison hugger
Dr. Salamanca has had a goals of care diiscussion with the and patient. Both are amenable to hospice. Refer to attending addendum for details.
Anticipated Discharge: 24 - 48 hours
Subjective/Interval History
-
Date of Service: June 14, 2024
Patient seen and examined while sleeping, somnolent this morning. Per nursing, has not complained of pain in the interim, has not requested hydromorphone. Overnight required one dose of Ativan as patient requested repeatedly for fruit, and said 'he
was going to call 911 to get his fruit'
Objective Data
-
Vital Signs:
Vital Signs
Temp Pulse Resp BP Pulse Ox
96.1 F L 56 14 94/68 97
06/14/24 07:00 06/14/24 07:00 06/14/24 07:00 06/14/24 07:00 06/14/24 08:00
I&O
06/13/24 06/14/24 06/15/24
06:59 06:59 06:59
Intake Total 680 / 680 435 / 435
Output Total 400 / 400 50 / 50
Balance 280 / 280 385 / 385
Review of Systems
-
Unable to obtain full review of systems at this time due to: Acuity
Physical Exam
-
General: No Apparent Distress
HEENT: Normocephalic and Atraumatic
Respiratory: Clear to Auscultation
Cardiac: Regular Rhythm and S1/S2
GI: Soft
Musculoskeletal: Other (1+ edema bilateral lower extremities)
Skin: Warm
Neuro: Other (somnolent)
[2024-06-14] MEDS: DILAUDID 0.25 MG IV ×3 (14:27→17:59)
[2024-06-14] MEDS: NSS (PRESERVATIVE FREE) 0.25 ML IV (18:00)
[2024-06-14] MEDS: ATIVAN 0.5 MG IV (18:00)
[2024-06-14 19:05] VITALS: BP 70/43
[2024-06-14] MEDS: MELATONIN PO (20:17)
--- NOTE | 2024-06-15 02:48 | W.PN.DEATH ---
Pronouncement of
-
Called to see patient to pronounce.
No spontaneous heart tones or respirations noted.
Patient not responsive to verbal stimuli.
Patient is pronounced .
Time of : 02:00
Date of : 06/15/24
Family Notified: Yes
--- NOTE | 2024-06-15 11:23 | W.DCSUMMARY ---
Discharge Summary
Discharge Data
Date of Admission: 06/09/24
Date of Discharge: 06/15/24
-
Pending Results: No
Hospital Course
Abdullahi Be was an 83 year old male with a past medical history that was significant for a prolonged hospital stay last month that was complicated by a large bowel perforation and abdominal washout, as well as a new diagnosis of end-stage renal
disease requiring the initiation of dialysis. The patient was discharged to a half-way facility on 05/24/2024.
The patient then returned to the hospital on 06/09/2024 after a witnessed syncopal episode. In the emergency department, the patient had significant metabolic abnormalities as well as jaundice. His Rosenthal bag was noted to have bright red blood.
Additionally, his blood pressure was tenuous prompting admission to the intensive care unit for pressor support, gastroenterological work up, electrolyte repletion, and reinitiation of dialysis.
While in the ICU, the patient's blood pressures continued to be supported with Levophed and Midodrine amidst unsuccessful weans. Electrolyte repletion was serially inadequate. Urology was consulted for the patient's hematuria, a three-way Rosenthal was
placed, and continuous bladder irrigation was started. The patient's jaundice was started to be worked up by gastroenterology. A large volume ascites was found on MRI of the abdomen with paracentesis performed. This fluid did not display any
hallmarks of spontaneous bacterial peritonitis. In the interim, the patient was scheduled to be dialyzed while in the hospital.
The patient received 2 hemodialysis treatments while admitted to the intensive care unit. However, dialysis was eventually discontinued since his volume status was not effectively able to be managed due to hemodynamic instability despite midodrine
and Levophed administration. The patient's clinical course seemed tenuous, and after conversation with the patient's family, the decision was made to transition the patient to comfort care measures. The patient remained on comfort care measures for
2 days, and on 04/15/2025 at 0200.
Discharge Plan
-
Patient Disposition:
Date/Time
Date/Time: 06/15/24 02:00
Discharge Date and Time
Discharge Date/Time: 06/15/24 02:00
Print Language: [id number]
== END 2024-06-15 02:00 | disposition expired | DRG 698 ==
LOC: 2 NORTH 13:17
PROVIDERS: Emergency Medicine; Nurse Practitioner Adult Health; Nurse Practitioner Family; Radiology Vascular & Interventional Radiology; Registered Nurse; ADMITTING PHYSICIAN Internal Medicine; ATTENDING PHYSICIAN Internal Medicine; CONSULT PHYSICIAN Specialist; CONSULT PHYSICIAN Student in an Organized Health Care Education/Training Program; EMERGENCY PHYSICIAN Emergency Medicine; OTHER PHYSICIAN Internal Medicine; OTHER PHYSICIAN Internal Medicine Gastroenterology
PROC: 30233N1 Transfusion of Nonautologous Red Blood Cells into Peripheral Vein, Percutaneous Approach (ICD-10-PCS; 2024-06-09)
PROC: 5A1D70Z Performance of Urinary Filtration, Intermittent, Less than 6 Hours Per Day (ICD-10-PCS; 2024-06-10)
PROC: 0W9G3ZZ Drainage of Peritoneal Cavity, Percutaneous Approach (ICD-10-PCS; 2024-06-12)
DX: T83.511A Infection and inflammatory reaction due to indwelling urethral catheter, initial encounter (principal); A41.9 Sepsis, unspecified organism; N18.6 End stage renal disease; R65.21 Severe sepsis with septic shock; I12.0 Hypertensive chronic kidney disease with stage 5 chronic kidney disease or end stage renal disease; D62 Acute posthemorrhagic anemia; R18.8 Other ascites; E87.1 Hypo-osmolality and hyponatremia; Z66 Do not resuscitate; Z51.5 Encounter for palliative care; E78.79 Other disorders of bile acid and cholesterol metabolism; K76.89 Other specified diseases of liver; I25.10 Atherosclerotic heart disease of native coronary artery without angina pectoris; E11.22 Type 2 diabetes mellitus with diabetic chronic kidney disease; D63.1 Anemia in chronic kidney disease; N31.9 Neuromuscular dysfunction of bladder, unspecified; I48.0 Paroxysmal atrial fibrillation; I95.9 Hypotension, unspecified; R57.1 Hypovolemic shock; R31.9 Hematuria, unspecified; L89.322 Pressure ulcer of left buttock, stage 2; L89.152 Pressure ulcer of sacral region, stage 2; E87.5 Hyperkalemia; N40.1 Benign prostatic hyperplasia with lower urinary tract symptoms; R33.8 Other retention of urine; Z99.2 Dependence on renal dialysis; Z95.5 Presence of coronary angioplasty implant and graft; Z79.01 Long term (current) use of anticoagulants; Z79.4 Long term (current) use of insulin; Z79.899 Other long term (current) drug therapy; Z86.718 Personal history of other venous thrombosis and embolism; Z87.11 Personal history of peptic ulcer disease; Y84.6 Urinary catheterization as the cause of abnormal reaction of the patient, or of later complication, without mention of misadventure at the time of the procedure
CPT/HCPCS: 88305; 49083; 71045; 74183; 80053; 80202; 82042; 82140; 82150; 82248; 82306; 82330; 82533; 82784; 82962; 82977; 83036; 83605; 83615; 83970; 84078; 84155; 84157; 84165; 84443; 84484; 85014; 85018; 85025; 85027; 86334; 86381; 86705; 86706; 86709; 86803; 86850; 86900; 86901; 86920; 87015; 87040; 87070; 87205; 87340; 87389; 88112; 88341; 88342; 89051; 93005; 99284; A9575; G0257; P9016; P9047; Q5106